=== PATIENT | male | born 1940 | race Caucasian/White ===

== ENCOUNTER 2023-12-05 19:02 | Emergency (ER) | payer MEDICARE, SELFPAY ==
[2023-12-05] VITALS (16 sets, daily range): BP systolic 105–189; BP diastolic 57–136; PULSE 72–92; TEMP 36.8; O2SAT 96–97; BMI 29.8
--- NOTE | 2023-12-05 19:15 | ECG_ITS ---
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
--- NOTE | 2023-12-05 19:52 | CT_ITS ---
The [address] [address] Patient Name: LACY GORDILLO MRN: [id number] date: 1940 Sex: M Assigned Patient Location: ER Current Patient Location: ER Accession/Order Number: [id number] Exam Date: 12/05/2023 20:17 Report Date: 12/05/2023 20:44 At the request of: BONG FRANCISCO Procedure: CT head/brain wo con EXAM: CT head/brain wo con HISTORY: altered mental status COMPARISON: None. TECHNIQUE: Axial CT scans through the head were obtained without IV contrast administration. Dose reduction techniques were achieved by using: automated exposure control and/or adjustment of mA and /or kV according to patient size and/or use of iterative reconstruction technique. FINDINGS: There is no evidence of acute intracranial hemorrhage or abnormal extra-axial fluid collection. No mass effect or midline shift is seen. There is no evidence of large acute territorial infarction. There is no hydrocephalus. There are a few tiny low-attenuation areas in bilateral basal ganglia, suggestive of remote lacunar infarcts. Mild enlarged ventricles and sulci, consistent with age appropriate cerebral atrophy. Mild decreased attenuation of the supratentorial white matter, likely represents chronic microvascular ischemia. To the limit of CT, the posterior fossa appears unremarkable. There are atherosclerotic calcifications of anterior and posterior circulations. No definite acute fracture is identified. Soft tissues are unremarkable. The visualized orbits show no abnormality. The visualized paranasal sinuses show no air-fluid level. Mastoid air cells are clear. CT/CT head/brain wo con IMPRESSION: No CT evidence of acute intracranial abnormality. If there is sufficient clinical concern for acute brain parenchymal pathology, consider MRI for further evaluation. Mild chronic microvascular ischemia and involutional changes. Intracranial atherosclerosis. Electronically authenticated by: ESTRELLA UNLU Date: 12/05/2023 20:44
[2023-12-05 20:05] LABS: Bilirubin Urine NEGATIVE (NEGATIVE); Blood Urine NEGATIVE (NEGATIVE); Clarity Urine CLEAR (CLEAR); Color Urine LT. YELLOW (YELLOW); Glucose Urine UA NEGATIVE (NEGATIVE); Ketones Urine NEGATIVE (NEGATIVE); Leukocyte Esterase Urine NEGATIVE (NEGATIVE); Nitrite Urine NEGATIVE (NEGATIVE); Protein Urine NEGATIVE (NEG/TRACE); Urine Microscopic Indicated NO; Urobilinogen Urine 0.2 EU/dL (0.2-1.0)
[2023-12-05 20:05] LABS: Basophils Percent Auto 0.8 % (0.2-2.0); Eosinophils Absolute Auto 0.1 10^3/uL (0.0-0.7); Eosinophils Percent Auto 1.8 % (0.9-7.0); Hematocrit 38.2 % (42.0-54.0); Hemoglobin 11.6 g/dL (14.0-18.0); Immature Granulocytes Abs Auto 0.07 10^3/uL (0.00-0.03); Immature Granulocytes Pct Auto 1.4 % (0.0-0.5); Lymphocytes Absolute Auto 1.3 10^3/uL (1.2-3.8); Lymphocytes Percent Auto 26.1 % (20.5-60.0); Mean Corpuscular HGB Conc 30.4 g/dL (29.9-35.2); Mean Corpuscular Hemoglobin 25.4 pg (25.9-34.0); Mean Corpuscular Volume 83.6 fL (80.0-94.0); Mean Platelet Volume 10.1 fL (9.5-13.5); Monocytes Absolute Auto 0.8 10^3/uL (0.3-0.8); Monocytes Percent Auto 15.1 % (1.7-12.0); Neutrophils Absolute Auto 2.7 10^3/uL (1.4-6.5); Neutrophils Percent Auto 54.8 % (43.0-75.0); Platelet Count 172 10^3/uL (150-450); Red Blood Count 4.57 10^6/uL (4.70-6.10); Red Cell Distribution Width 15.2 % (11.0-15.0)
[2023-12-05 20:16] LABS: Amphetamine Screen Urine NEGATIVE (NEGATIVE); Barbiturates Screen Urine NEGATIVE (NEGATIVE); Benzodiazepines Screen Urine NEGATIVE (NEGATIVE); Buprenorphine Screen Urine NEGATIVE (NEGATIVE); Cannabinoid Screen Urine NEGATIVE (NEGATIVE); Cocaine Screen Urine NEGATIVE (NEGATIVE); Methadone Screen Urine NEGATIVE (NEGATIVE); Methamphetamines Screen Urine NEGATIVE (NEGATIVE); Opiate Screen Urine NEGATIVE (NEGATIVE); Oxycodone Screen Urine NEGATIVE (NEGATIVE); Phencyclidine Screen Urine NEGATIVE (NEGATIVE); Tricyclic Antidepressant Urine NEGATIVE (NEGATIVE)
[2023-12-05 20:18] LABS: Prothrombin Time 39.1 sec (9.0-11.6)
[2023-12-05 20:21] LABS: Alanine Aminotransferase 16 U/L (16-63); Albumin Globulin Ratio 1.1; Albumin Level 3.6 g/dL (3.4-5.0); Alkaline Phosphatase 94 U/L (46-116); Anion Gap 10.9; Aspartate Amino Transferase 14 U/L (15-37); BUN Creatinine Ratio 13.2; Bilirubin Total 0.5 mg/dL (0.2-1.0); Calcium 8.9 mg/dL (8.5-10.1); Chloride 105 mmol/L (98-107); Estimated GFR (African America >60 (>=60); Estimated GFR (Non-African Ame >60 (>=60); Globulin 3.3 g/dL; Glucose 110 mg/dL (74-106); Potassium 3.9 mmol/L (3.5-5.1); Sodium 140 mmol/L (136-145); Total Protein 6.9 g/dL (6.4-8.2)
[2023-12-05 20:23] LABS: INR 4.26
[2023-12-05 20:29] LABS: Ethanol <3 mg/dL; Thyroid Stimulating Hormone 0.845 uIU/mL (0.358-3.740)
[2023-12-05 20:34] LABS: Ammonia 21 umol/L (11-32)
== END 2023-12-05 21:35 | disposition home or self-care (01) ==
PROVIDERS: Emergency Provider Internal Medicine; PCP Family Medicine
DX: R41.0 Disorientation, unspecified (principal); R79.1 Abnormal coagulation profile; I48.91 Unspecified atrial fibrillation; Z79.01 Long term (current) use of anticoagulants
CPT/HCPCS: 36415; 70450; 80053; 80307; 80320; 81003; 82140; 84443; 85025; 85610; 93005; 99285

== ENCOUNTER 2024-06-28 17:00 | Outpatient (REF) | payer MEDICARE, SELFPAY ==
[2024-06-29 10:35] LABS: Bilirubin Urine NEGATIVE (NEGATIVE); Blood Urine NEGATIVE (NEGATIVE); Clarity Urine CLOUDY (CLEAR); Color Urine YELLOW (YELLOW); Glucose Urine UA NEGATIVE (NEGATIVE); Ketones Urine NEGATIVE (NEGATIVE); Leukocyte Esterase Urine NEGATIVE (NEGATIVE); Nitrite Urine NEGATIVE (NEGATIVE); Protein Urine NEGATIVE (NEG/TRACE); Specific Gravity Urine 1.025 (1.005-1.025); Urobilinogen Urine 0.2 EU/dL (0.2-1.0)
[2024-06-29 10:45] LABS: Bacteria Urine NONE SEEN #/HPF (NONE SEEN); RBC Urine 0-2 #/HPF (0-2); WBC Urine NONE SEEN #/HPF (NONE SEEN)
[2024-06-29 10:46] LABS: Amorphous Sediment Urine MANY; Calcium Oxalate Crystals Urine RARE; Cast Seen? NONE SEEN #/LPF (NONE SEEN); Crystals Seen? Seen #/HPF (None Seen); Mucus Urine NONE SEEN (NONE SEEN); Squamous Epithelial Cell Urine RARE #/LPF (NONE/RARE); Urine Culture Indicated NO
== END 2024-06-28 17:01 | disposition home or self-care (01) ==
LOC: LAB 17:00
PROVIDERS: PCP Family Medicine; Visit Provider Physician Assistant
DX: R41.0 Disorientation, unspecified (principal)
CPT/HCPCS: 81001

== ENCOUNTER 2024-11-14 07:22 | Observation (INO) | payer MEDICARE, SELFPAY ==
--- OUTSIDE RECORDS SUMMARY | 2024-01-18 16:03 | XMS_ITS ---
Author Organization [facility] in [place] Address [address] [place] [address] Care Team Providers Care Payment Analyst Name Role Phone None, Unknown or Primary Care Provider Unavailab Tyosn Leon Unavailable [phone] Encounters Encounter Location Date Provider Diagnosis [facility] [address] [place] [address] 01/18/2024 Tyson Crenshaw Plan Of Treatment No Information Progress Notes * DUY Emigdio FDOB:[birth year] (83 yo M)Acc No.[id number]:01/18/2024 Patient: Emigdio TAYLOR :1940 A ge:83 Y S ex:Male Address:[address] [place], [address] * true * Date: Generated for Edgar sigala/Yisel/eTransmitting on: 0 11/14/2024 07:30 AM EDT
--- OUTSIDE RECORDS SUMMARY | 2024-11-10 21:02 | XMS_ITS | Continuity of Care Document ---
Author Organization [facility] Address [address] [place] [address] Phone Care Team Providers Care Development Spec Name Role Phone Josue Joseph DO Emergency Provider [phone] Tyson Bhatti II Primary Care Provider Isabelle Rucker Attending Provider Care Teams Patient Care Team Team Status: Active Member Role Status Dates Tyson Bhatti II MD Primary Care Provider Active Visit Care Team Team Status: Inactive Member Role Status Dates Josue Joseph DO Emergency Provider Active Start: November 02, 2024 End: November 02, 2024 Tyson Bhatti II MD Primary Care Provider Active Start: November 02, 2024 End: November 02, 2024 Visit Care Team Team Status: Inactive Member Role Status Dates Tyson Bhatti II MD Primary Care Provider Active Start: November 10, 2024 End: November 10, 2024 AMPARO De La Cruz Attending Provider Active St art: November 10, 2024 End: November 10, 2024 Chief Complaint and Reason for Visit Chief Complaint Admit Date fall November 02, 2024 6:08p m Allergies, Adverse Reactions, Alerts No known allergies Social History Smoking Status Status Start Date End Date Date of Observa tion Ex-smoker (finding) October 6:23pm Observation Status Observation Response Date of Response Patient Sex Male November 11, 2024 1 2:09am Assigned Sex Male [birth year] 943 Family History Relationship Condition Age at Onset Recorded Date/T gustavo brother Unknown father Unknown mother Unknown Problems Active Problems Medical Problem Onset Date Status Hypertensive urgency Active Acute encephalopathy Active B12 deficiency Active Diverticulosis Active Anemia Active Anemia Active Atrial fibrillation Active Primary osteoarthritis of left ankle Active Antral erosion Active Old cerebrovascular accident (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 Active Low mean corpuscular volume (MCV) Active Iron deficiency anemia Active BMI 31.0-31.9,adult Active Bilateral impacted cerumen Activ e Jose Manuel ulcer Active Bronchitis Active Inactive/Resolved Problems Medical Problem Onset Date Status Contusion of knee Resolved Closed head injury Resolved Hallucinations Resolved Fall Resolved Medications Medication Status Dose Units Route Directions Qty Days St art Date Stop Date End Date Instructions Warfarin () 2 mg tablet Discont inued 6 MG PO 6 TIMES PER WEEK December 17, 2023 12:00a m Yesica banner 2023 9:55a m thursday,, ,thursday, thursday and thursday Losartan 50 mg Tablet Active 50 MG PO Daily December 22, 2023 12:00a m Aspirin 81 mg Tablet,Delay ed Release (Dr/Ec) Active 81 MG PO Daily December 22, 2023 12:00a m Omeprazole 20 mg capsule,tricia yed release(DR/E C) Active 20 MG PO Daily December 22, 2023 12:00a m Cyanocobalam in (Vitamin B-12) 500 mcg tablet Discont inued 500 MCG PO Daily December 22, 2023 12:00a m Yesica banner 2023 9:55a m Warfarin 7.5 mg tablet Discont inued 7.5 MG PO As Directed [facility] er 2017 1:00am 2018 3:04p m Warfarin 5 mg tablet Discont inued 5 MG PO every Thursday, , Thursday, and Thursday [facility] er 2017 1:00am 2018 3:04p m Timolol Maleate 0.5 % drops Discont inued 1 DROPS OPHTHA LMIC Daily [facility] er 2017 1:00am December 17, 2023 3:28p m Omeprazole 20 mg Capsule,Tricia yed Release(Dr/E c) Discont inued 40 MG PO Daily 2018 1:00am December 17, 2023 3:28p m Ferrous Sulfate 324 mg (65 mg iron) Tablet,Delay ed Release (Dr/Ec) Discont inued 324 MG PO Twice daily 60 2018 1:00am December 17, 2023 3:28p m Ascorbic Acid (Vitamin C) 500 mg capsule Discont inued CAP PO As Directed 2023 1:00am December 17, 2023 3:27p m FreeTextSig: as directed Orally; Note: Source Status: Taking; Provider: Yenifer Florentino ( ) Warfarin 2 mg tablet Discont inued 4 MG PO every week 2023 1:00am 2023 9:55a m mondays Atorvastatin 20 mg tablet Discont inued 1 TAB PO Daily 2023 1:00am December 17, 2023 3:27p m FreeTextSi tablet Orally Once a day; Note: Source Status: Taking; Provider: Yenifer Florentino ( ) Niacinamide 500 mg tablet Discont inued 1 TAB PO Daily 2023 1:00am December 17, 2023 3:28p m FreeTextSi tablet Orally Once a day; Note: Source Status: Taking; Provider: Yenifer Florentino ( ) Doxycycline Hyclate 100 mg capsule Discont inued 100 MG PO Twice daily 20 10 2023 1:00am December 17, 2023 3:27p m Methylpredni solone (Medrol (Aiden)) 4 mg tablets,dose pack Discont inued 0 PO per package directions 2023 1:00am December 17, 2023 3:28p m PO PER PKG DIR for 6 days Albuterol Sulfate 90 mcg/actuatio n HFA aerosol inhaler Discont inued 2 PUFF INHALA TION Four times daily as needed for shortness of breath or wheezing 8.5 2023 1:00am December 17, 2023 3:27p m Atorvastatin 20 mg tablet Active 20 MG PO Daily 2023 12:00a m Cyanocobalam in (Vitamin B-12) 1,000 mcg capsule Active 1000 MCG PO Daily 2023 12:00a m Warfarin 2 mg tablet Active 2 MG PO As Directed 2023 12:00a m Directed by [facility]. 02/09/ - 4mg on Mondays & 6mg on ,,,, r,Sa Immunizations Immunization Event Date Not Given Reason Dose Number Maintenance Mechanic Lot Number Vaccine Information Statement (VIS) Detail Tetanus, Diphtheria, Pertussis (Tdap) November 02, 2024 [id number] Procedures Procedure Date Performed Status CT head/brain wo con November 02, 2024 6:20pm compl eted CT cervical spine wo con November 02, 2024 6:20pm c ompleted XR chest 2V* November 02, 2024 6:20pm completed XR knee LT 4V* November 02, 2024 6:20pm completed XR knee LT 4V* November 10, 2024 5:09pm completed Relevant Diagnostic Tests and/or Laboratory Data Laboratory Results Test Date/Time Result Interpretation Reference Range Result Comment Performing Site Corrected White Blood Count November 02, 2024 6:20pm 4.7 10*3/uL 4.1-10.5 [facility] [id number] [address] [facility] [address] Uncorrected WBC Count November 02, 2024 6:20pm 4.7 10*3/uL 4.1-10.5 [facility] [id number] [address] [facility] [address] Red Blood Count November 02, 2024 6:20pm 4.75 10*6/uL 3.90-5.60 [facility] [id number] [address] [facility] [address] Hemoglobin November 02, 2024 6:20pm 12.7 g/dL Below low normal 13.0-17.0 [facility] [id number] [address] [facility] [address] Hematocrit November 02, 2024 6:20pm 39.4 % 38.8-50.0 [facility] [id number] [address] [facility] [address] Mean Corpuscular Volume November 02, 2024 6:20pm 83.0 fL Below low normal 83.5-101 [facility] [id number] [address] [place] [place] [id number] Mean Corpuscular Hemoglobin November 02, 2024 6:20pm 26.7 pg Below low normal 27.5-35.2 [facility] [id number] [address] [facility] [address] Mean Corpuscular Hemoglobin Concent November 02, 2024 6:20pm 32.2 g/dL Below low normal 32.5-35.6 [facility] [id number] [address] [facility] [address] Red Cell Distribution Width November 02, 2024 6:20pm 18.1 % Above high normal 12.0-14.8 [facility] [id number] [address] [facility] [address] Platelet Count November 02, 2024 6:20pm 132 10*3/uL Below low normal 150-450 [facility] [id number] [address] [facility] [address] Mean Platelet Volume November 02, 2024 6:20pm 8.7 fL 6.6-10.1 [facility] [id number] [address] [facility] [address] Monocyte Distribution Width November 02, 2024 6:20pm 19.52 % 0.00-20.00 [facility] [id number] [address] [facility] [address] Neutrophils (%) (Auto) November 02, 2024 6:20pm 50.7 % . [facility] [id number] [address] [facility] [address] Lymphocytes (%) (Auto) November 02, 2024 6:20pm 29.2 % . [facility] [id number] [address] [facility] [address] Monocytes (%) (Auto) November 02, 2024 6:20pm 15.5 % . [facility] [id number] [address] [facility] [address] Eosinophils (%) (Auto) November 02, 2024 6:20pm 3.9 % . [facility] [id number] [address] [facility] [address] Basophils (%) (Auto) November 02, 2024 6:20pm 0.7 % . [facility] [id number] [address] [facility] [address] Nucleated RBC Relative Count (auto) November 02, 2024 6:20pm 0.1 /100{WB C} 0-0.5 [facility] [id number] [address] [facility] [address] Neutrophils # (Auto) November 02, 2024 6:20pm 2.4 10*3/uL 1.8-7.7 [facility] [id number] [address] [facility] [address] Lymphocytes # (Auto) November 02, 2024 6:20pm 1.4 10*3/uL 1.00-4.8 [facility] [id number] [address] [place] [address] Monocytes # (Auto) November 02, 2024 6:20pm 0.7 10*3/uL 0.0-0.8 [facility] [id number] [address] [place] [address] Eosinophils # (Auto) November 02, 2024 6:20pm 0.2 10*3/uL 0.0-0.45 [facility] [id number] [address] [place] [address] Basophils # (Auto) November 02, 2024 6:20pm 0.0 10*3/uL 0.0-0.2 [facility] [id number] [address] [place], [place] [address] Glucose Level November 02, 2024 6:20pm 133 mg/dL Above high normal 70-100 ADA recommended reference rangeRandom Glucose Reference Range is dependent on time and content of last meal. Glucose of more than 200 mg/dL in a nonstressed, ambulatory subject supports the diagnosis of Diabetes Mellitus. [facility] [id number] [address] [place] [address] Blood Urea Nitrogen November 02, 2024 6:20pm 15 mg/dL 7-25 [facility] [id number] [address] [place] [address] Creatinine November 02, 2024 6:20pm 1.08 mg/dL 0.70-1.30 [facility] [id number] [address] [place], [place] [address] Estimated GFR (CKD-EPI) November 02, 2024 6:20pm > 60.0 mL/Min [facility] [id number] [address] [place] [address] Sodium Level November 02, 2024 6:20pm 138 mmol/L 136-145 [facility] [id number] [address] [facility] [address] Potassium Level November 02, 2024 6:20pm 4.0 mmol/L 3.5-5.1 [facility] [id number] [address] [facility] [address] Chloride Level November 02, 2024 6:20pm 104 mmol/L 98-107 [facility] [id number] [address] [place] [address] Carbon Dioxide Level November 02, 2024 6:20pm 29.6 mmol/L 21.0-31.0 [facility] [id number] [address] [place] [address] Anion Gap November 02, 2024 6:20pm 8.4 mEq/L 6.0-15.0 [facility] [id number] [address] [place] [address] Calcium Level November 02, 2024 6:20pm 8.3 mg/dL Below low normal 8.6-10.3 [facility] [id number] [address] [facility] [address] Total Protein November 02, 2024 6:20pm 5.8 g/dL Below low normal 6.4-8.9 [facility] [id number] [address] [facility] [address] Albumin November 02, 2024 6:20pm 3.4 g/dL Below low normal 3.5-5.7 [facility] [id number] [address] [facility] [address] Globulin November 02, 2024 6:20pm 2.4 g/dL [facility] [id number] [address] [place] [address] Albumin/Globulin Ratio November 02, 2024 6:20pm 1.4 [facility] [id number] [address] [place] [address] Total Bilirubin November 02, 2024 6:20pm 0.5 mg/dL 0.3-1.0 [facility] [id number] [address] [place] [address] Aspartate Amino Transf (AST/SGOT) November 02, 2024 6:20pm 21 U/L 13-39 [facility] [id number] [address] [place], [place] [address] Alanine Aminotransferase (ALT/SGPT) November 02, 2024 6:20pm 22 U/L 7-52 [facility] [id number] [address] [place], [place] [address] Alkaline Phosphatase November 02, 2024 6:20pm 85 U/L 34-104 [facility] [id number] [address] [place], [place] [address] Troponin I High Sensitivity November 02, 2024 6:20pm 18 ng/L 0-20 The Troponin units of report have been changed to meet the Chest Pain Accreditation requirement, element EC5.M1l2. Troponin units are changed from pg/ml to ng/L. Also, the decimal is removed and results are in whole numbers. [facility] [id number] [address] [place], [place] [address] Pharmacy Creatinine Clearance (Chem November 02, 2024 6:20pm 65.85 [facility] [id number] [address] [place], [place] [address] Diagnostic Imaging Reports Author Vitor Church [facility] Report Date/Time November 10, 2024 6:04p m [facility] Main [place] [id number] XRay Report Signed Patient: Emigdio Jeong III MR#: [id number] : 1940 Acct:[id number] Age/Sex: 84 / M ADM Date: 5 Loc: XNELY Room: Type: [facility] Attending Dr: Isabelle Rucker MANAGER CAR-C Copies to: KAREN De La Cruz~ Ordering Provider: KAREN De La Cruz Date of Service: 11/10/24 XR/XR knee LT 4V*: Fall 4 views left knee plain film COMPARISON: 11/02/2024 HISTORY: Fell injuring left knee ACUTE FINDINGS: No acute findings DEGENERATIVE CHANGE: Similar mild degeneration SOFT TISSUE FINDINGS: Unremarkable JOINT EFFUSION: None POSTOP CHANGES: Stable visualized fixation hardware the tibia vascular clips BONE MINERALIZATION: Adequate XR/XR knee LT 4V* IMPRESSION: No acute findings stable postsurgical changes. Mild degeneration Impression dictated by: Vitor Church M.D. 11/10/2024 6:04 PM Dictation Location: RADIO-PC-20 Transcribed By: PWS 11/10/241803 Dictated By: Vitor Church DO 11/10/241802 Signed By: <Electronically signed by Vitor Church DO in OV> 11/10/241803 Vital Signs Vital Reading Result Reference Range Collection Date/Time Height 72 [in_i] November 02, 2024 6:21pm Weight 104.32 kg November 02, 2024 6:21pm Body Temperature 97.7 [degF] 97.6-99.0 November 02, 2 025 8:38pm Heart Rate 71 /min 60-100 November 02, 2024 8:38pm Respiratory rate 16 /min 12-24 November 02, 2 025 8:38pm Oxygen saturation by Pulse oximetry 98 % 95-10 0 November 02, 2024 8:38pm BP Systolic 177 mm[Hg] 100-140 November 02, 2024 8:38pm BP Diastolic 83 mm[Hg] 60-100 November 02, 2024 8:38pm Advance Directives Advance Directive Response Recorded Date/ Time Advance Directives No May 2:13pm Insurance Providers Guarantor Emigdio Jeong III Address [address] [facility] [address] Contact Info. Home Phone: Payer Policy Id Coverage Id Subscriber's Name Subscriber Id Effective Date Expiration Date Ihsan HERRERA/GI [id number] Emigdio Jeong III [id number] Medicare [id number] 00 [id number] Emigdio Jeong III [id number] Encounters Encounter Location(s) Arrival/Admit Date Discharge/Depart Date Provider(s) Departed Emergency [facility]Emergency Room November 02, 2024 6:08pm November 02, 2024 8:43pm [facility] Departed [facility] November 10, 2024 5:08pm November 10, 2024 5:09pm KAREN De La Cruz Plan of Treatment Future Tests Future scheduled test information is unavailable Pending Tests Pending diagnostic test information is unavailable Future Visits Future appointment information is unavailable Referrals to Other Providers Reason for Referral Referral Start Date Provider Provider Contact Information Provider Address Emigdio Roland , DO Work Phone: [address] [facility] [address] Future Procedures Future procedure information is unavailable Future Medications Future medication information is unavailable Patient Instructions Instruction Admit Date Head injury in adults Preventing falls - ED discharge instructions November 02, 2024 6:08pm
[2024-11-14] VITALS (17 sets, daily range): BP systolic 114–182; BP diastolic 75–117; PULSE 70–89; TEMP 36.4–36.7; O2SAT 92–98; BMI 27.1; BMI 29.3
--- OUTSIDE RECORDS SUMMARY | 2024-11-14 07:29 | XMS_ITS | Encounter Summary ---
Author Organization [facility] Address [address] [place] [address] Care Team Providers Care Ob Nurse Name Role Phone Tyson Bhatti MD Primary Care Provider [phone] SukhwinderKishanfannysandrita DO Unavailable [phone] Encounter Details Date Type Department Care Team ([facility] Contact Info) Description 05/27/2024 Abstract [facility] [address] [address] [place] [id number] Tyson Bhatti MD [address] [facility] [address] [place] [address] Social History Tobacco Use Types Packs/Day Years Used Date Smoking Tobacco: Former Cigarettes Smokeless Tobacco: Never Sex and Gender Information Value Date Recorded Sex Assigned at Not on file Legal Sex Male 8:34 PM EDT Gender Identity Not on file Sexual Orientation Not on file documented as of this encounter Plan of Treatment Upcoming Encounters Date Type Department Care Team ([facility] Contact Info) Description 11/28/2024 3:30 PM EDT Office Visit [facility] [address] [facility] [address] [place] [address] Tyson Bhatti MD [address] [facility] [address] [place] [address] documented as of this encounter Visit Diagnoses Not on filedocumented in this encounter Care Teams Ob Nurse Relationship Specialty Start Date End Date Tyson Bhatti MD [address] [facility] [address] [place] [address] PCP - General Internal Medicine 06/03/24 Mike Pretty DO [address] [place] [address] Referring Physician Neurology 10/03/24 documented as of this encounter
--- OUTSIDE RECORDS SUMMARY | 2024-11-14 07:29 | XMS_ITS | Patient Health Record ---
Author Organization [facility] [place] Address [address] [place] [address] Care Team Providers Care Food Chemist Name Role Phone None, Unknown or Primary Care Provider Unavailab kristofer Tyson Crenshaw Unavailable [phone] Reason For Referral No Information Problems Problem Type SNOMED Code ICD Code Onset Dates Problem Status W/U Status Risk Notes Problem 62688518 Essential (prima ry) hypertension (I10) Active confirmed Problem 740844947 Insomnia, unspecified (G47.00) Active confirmed Problem 95750917 Metabolic encephalopathy (G93.41) Active confirmed Problem 614707989 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 confirmed Problem 696978289 moth exterminator (curre nt) use of anticoagulants (Z79.01) Active confirmed Problem 087880391 Vascular dementi a, unspecified severity, without behavioral disturbance, psychotic disturbance, mood disturbance, and anxiety (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
--- OUTSIDE RECORDS SUMMARY | 2024-11-14 07:29 | XMS_ITS | Encounter Summary ---
Author Organization [facility] Address [address] [place] [address] Care Team Providers Care Soap Press Feeder Name Role Phone Tyson Bhatti MD Primary Care Provider [phone] SukhwinderKishanfannysandrita DO Unavailable [phone] Encounter Details Date Type Department Care Team ([facility] Contact Info) Description 11/12/2024 Results Follow-Up [facility] [address] [facility] [address] [place] [phone] Isabelle Rucker, [employer] [address] [facility] [address] [place] [address] Social History Tobacco Use Types Packs/Day Years Used Date Smoking Tobacco: Former Cigarettes Smokeless Tobacco: Never Alcohol Use Standard Drinks/Week Comments Defer 0 (1 standard drink = 0.6 oz pur e alcohol) PHQ-2 Answer Date Recorded Patient Health Questionnaire-2 Score 0 10/10/2024 Sex and Gender Information Value Date Recorded Sex Assigned at Not on file Legal Sex Male 8:34 PM EDT Gender Identity Not on file Sexual Orientation Not on file documented as of this encounter Plan of Treatment Upcoming Encounters Date Type Department Care Team ([facility] Contact Info) Description 11/28/2024 3:30 PM EDT Office Visit [facility] [address] [facility] [address] [place] [address] Tyson Bhatti MD [address] [facility] [address] [place] [address] documented as of this encounter Visit Diagnoses Not on filedocumented in this encounter Care Teams Soap Press Feeder Relationship Specialty Start Date End Date Tyson Bhatti MD [address] [address] PCP - General Internal Medicine 06/03/24 Mike Pretty DO [address] [place] [address] Referring Physician Neurology 10/03/24 documented as of this encounter
--- OUTSIDE RECORDS SUMMARY | 2024-11-14 07:30 | XMS_ITS | Encounter Summary ---
Author Organization [facility] Address [address] [place] [address] Phone Care Team Providers Care Chain Mortiser Operator Name Role Phone Emigdio Roland DO Primary Care Provider [phone] Generic Provider, No Assigned Pcp MD Primary Car e Provider Unavailable Encounter Details Date Type Department Care Team (Late st Contact Info) Description 12/16/2022 Orders Only [facility] [address] [place] [address] Conversion, Onbase Social History Tobacco Use Types Packs/Day Years Used Date Smoking Tobacco: Never Assessed Sex and Gender Information Value Date Recorded Sex Assigned at Not on file Legal Sex Male 9:52 PM EST Gender Identity Not on file Sexual Orientation Not on file documented as of this encounter Plan of Treatment Scheduled Orders Name Type Priority Associated Diagnoses Orde r Schedule OUTSIDE LAB SCAN Lab Ordered: 12/16/2022 documented as of this encounter Visit Diagnoses Not on filedocumented in this encounter Care Teams Chain Mortiser Operator Relationship Specialty Start Date End Date Emigdio Roland DO PCP - General 11/24/18 07/08/23 Generic Provider, No Assigned Pcp, PCP - General 07/09/23 documented as of this encounter
--- OUTSIDE RECORDS SUMMARY | 2024-11-14 07:30 | XMS_ITS | Encounter Summary ---
Author Organization [facility] Address [address] [place] [address] Phone Care Team Providers Care Digital Marketing Assistant Name Role Phone Emigdio Roland DO Primary Care Provider [phone] Generic Provider, No Assigned Pcp MD Primary Car e Provider Unavailable Encounter Details Date Type Department Care Team (Late st Contact Info) Description 08/25/2019 Orders Only [facility] [address] [place] [address] Conversion, Onbase Social History Tobacco Use Types [...] r Schedule OUTSIDE LAB SCAN Lab Ordered: 08/25/2019 documented as of this encounter Visit Diagnoses Not on filedocumented in this encounter Care Teams Digital Marketing Assistant Relationship Specialty Start Date End Date Emigdio Roland DO PCP - General 11/24/18 07/08/23 Generic Provider, No Assigned Pcp, PCP - General 07/09/23 documented as of this encounter
--- OUTSIDE RECORDS SUMMARY | 2024-11-14 07:30 | XMS_ITS | Encounter Summary ---
Author Organization [facility] Address [address] [place] [address] Phone Care Team Providers Care Stock Mover Name Role Phone Emigdio Roland DO Primary Care Provider [phone] Generic Provider, No Assigned Pcp MD Primary Car e Provider Unavailable Encounter Details Date Type Department Care Team (Late st Contact Info) Description 10/02/2022 Orders Only [facility] [address] [place] [address] Conversion, Onbase Social History Tobacco Use Types [...] r Schedule OUTSIDE LAB SCAN Lab Ordered: 10/02/2022 documented as of this encounter Visit Diagnoses Not on filedocumented in this encounter Care Teams Stock Mover Relationship Specialty Start Date End Date Emigdio Roland DO PCP - General 11/24/18 07/08/23 Generic Provider, No Assigned Pcp, PCP - General 07/09/23 documented as of this encounter
--- OUTSIDE RECORDS SUMMARY | 2024-11-14 07:30 | XMS_ITS | Encounter Summary ---
Author Organization [facility] Address [address] [place] [address] Phone Care Team Providers Care Marketing Graphics Specialist Name Role Phone Emigdio Roland DO Primary Care Provider [phone] Generic Provider, No Assigned Pcp MD Primary Car e Provider Unavailable Encounter Details Date Type Department Care Team (Late st Contact Info) Description 04/21/2022 Orders Only [facility] [address] [place] [address] Conversion, Onbase Social History Tobacco Use Types [...] r Schedule OUTSIDE LAB SCAN Lab Ordered: 04/21/2022 documented as of this encounter Visit Diagnoses Not on filedocumented in this encounter Care Teams Marketing Graphics Specialist Relationship Specialty Start Date End Date Emigdio Roland DO PCP - General 11/24/18 07/08/23 Generic Provider, No Assigned Pcp, PCP - General 07/09/23 documented as of this encounter
--- OUTSIDE RECORDS SUMMARY | 2024-11-14 07:30 | XMS_ITS | Encounter Summary ---
Author Organization [facility] Address [address] [place] [address] Phone Care Team Providers Care Evp Chief Exploration Officer Name Role Phone Emigdio Roland DO Primary Care Provider [phone] Generic Provider, No Assigned Pcp MD Primary Car e Provider Unavailable Encounter Details Date Type Department Care Team (Late st Contact Info) Description 08/18/2022 Orders Only [facility] [address] [place] [address] Conversion, Onbase Social History Tobacco Use Types [...] r Schedule OUTSIDE LAB SCAN Lab Ordered: 08/18/2022 documented as of this encounter Visit Diagnoses Not on filedocumented in this encounter Care Teams Evp Chief Exploration Officer Relationship Specialty Start Date End Date Emigdio Roland DO PCP - General 11/24/18 07/08/23 Generic Provider, No Assigned Pcp, PCP - General 07/09/23 documented as of this encounter
--- OUTSIDE RECORDS SUMMARY | 2024-11-14 07:30 | XMS_ITS | Encounter Summary ---
Author Organization [facility] Address [address] [place] [address] Phone Care Team Providers Care Synthetic Resin Operator Name Role Phone Emigdio Roland DO Primary Care Provider [phone] Generic Provider, No Assigned Pcp MD Primary Car e Provider Unavailable Encounter Details Date Type Department Care Team (Late st Contact Info) Description 07/31/2020 Orders Only [facility] [address] [place] [address] Conversion, Onbase Social History Tobacco Use Types [...] r Schedule OUTSIDE LAB SCAN Lab Ordered: 07/31/2020 documented as of this encounter Visit Diagnoses Not on filedocumented in this encounter Care Teams Synthetic Resin Operator Relationship Specialty Start Date End Date Emigdio Roland DO PCP - General 11/24/18 07/08/23 Generic Provider, No Assigned Pcp, PCP - General 07/09/23 documented as of this encounter
--- OUTSIDE RECORDS SUMMARY | 2024-11-14 07:30 | XMS_ITS | Encounter Summary ---
Author Organization [facility] Address [address] [place] [address] Phone Care Team Providers Care Oxygen Plant Operator Name Role Phone Emigdio Roland DO Primary Care Provider [phone] Generic Provider, No Assigned Pcp MD Primary Car e Provider Unavailable Encounter Details Date Type Department Care Team (Late st Contact Info) Description 03/12/2020 Orders Only [facility] [address] [place] [address] Conversion, Onbase Social History Tobacco Use Types [...] r Schedule OUTSIDE LAB SCAN Lab Ordered: 03/12/2020 documented as of this encounter Visit Diagnoses Not on filedocumented in this encounter Care Teams Oxygen Plant Operator Relationship Specialty Start Date End Date Emigdio Roland DO PCP - General 11/24/18 07/08/23 Generic Provider, No Assigned Pcp, PCP - General 07/09/23 documented as of this encounter
--- OUTSIDE RECORDS SUMMARY | 2024-11-14 07:30 | XMS_ITS | Encounter Summary ---
Author Organization [facility] Address [address] [place] [address] Care Team Providers Care International Editorial Producer Name Role Phone Tyson Bhatti MD Primary Care Provider [phone] Kishan Prettyfannysandrita DO Unavailable [phone] Encounter Details Date Type Department Care Team (Late Contact Info) Description 04/19/2024 Abstract [facility] 110 [place] [phone] Emigdio Roland MD [address] [place] [address] Social History Tobacco Use Types Packs/Day Years Used Date Smoking Tobacco: Former Cigarettes Smokeless Tobacco: Never Sex and Gender Information Value Date Recorded Sex Assigned at Not on file Legal Sex Male 8:34 PM EDT Gender Identity Not on file Sexual Orientation Not on file documented as of this encounter Plan of Treatment Upcoming Encounters Date Type Department Care Team ([facility] Contact Info) Description 11/28/2024 3:30 PM EDT Office Visit [facility] 110 [place] [address] Tyson Bhatti MD [address] [facility] 110 [place], [place] [id number] documented as of this encounter Visit Diagnoses Not on filedocumented in this encounter Care Teams International Editorial Producer Relationship Specialty Start Date End Date Tyson Bhatti MD [address] [facility] 110 [place] [address] PCP - General Internal Medicine 06/03/24 Mike Pretty DO 112 [place] [address] Referring Physician Neurology 10/03/24 documented as of this encounter
--- OUTSIDE RECORDS SUMMARY | 2024-11-14 07:30 | XMS_ITS | Encounter Summary ---
Author Organization [facility] Address [address] [place] [address] Phone Care Team Providers Care Continuous Churn Buttermaker Name Role Phone Emigdio Roland DO Primary Care Provider [phone] Generic Provider, No Assigned Pcp MD Primary Car e Provider Unavailable Encounter Details Date Type Department Care Team (Late st Contact Info) Description 03/03/2019 Orders Only [facility] [address] [place] [address] Conversion, Onbase Social History Tobacco Use Types [...] r Schedule OUTSIDE LAB SCAN Lab Ordered: 03/03/2019 documented as of this encounter Visit Diagnoses Not on filedocumented in this encounter Care Teams Continuous Churn Buttermaker Relationship Specialty Start Date End Date Emigdio Roland DO PCP - General 11/24/18 07/08/23 Generic Provider, No Assigned Pcp, PCP - General 07/09/23 documented as of this encounter
--- OUTSIDE RECORDS SUMMARY | 2024-11-14 07:30 | XMS_ITS | Encounter Summary ---
Author Organization [facility] Address [address] [place] [address] Phone Care Team Providers Care Ironworker Machine Operator Name Role Phone Emigdio Roland DO Primary Care Provider [phone] Generic Provider, No Assigned Pcp MD Primary Car e Provider Unavailable Encounter Details Date Type Department Care Team (Late st Contact Info) Description 05/17/2020 Orders Only [facility] [address] [place] [address] Conversion, Onbase Social History Tobacco Use Types [...] r Schedule OUTSIDE LAB SCAN Lab Ordered: 05/17/2020 documented as of this encounter Visit Diagnoses Not on filedocumented in this encounter Care Teams Ironworker Machine Operator Relationship Specialty Start Date End Date Emigdio Roland DO PCP - General 11/24/18 07/08/23 Generic Provider, No Assigned Pcp, PCP - General 07/09/23 documented as of this encounter
--- OUTSIDE RECORDS SUMMARY | 2024-11-14 07:30 | XMS_ITS | Encounter Summary ---
Author Organization [facility] Address [address] [facility] [place] [address] Care Team Providers Care Reach Truck Operator Name Role Phone Tyosn Bhatti MD Primary Care Provider [phone] Mike Pretty DO Unavailable [phone] Encounter Details Date Type Department Care Team ([facility] Contact Info) Description 02/18/2024 Abstract [facility] [address] [facility] 110 [place] [phone] Unallocated, Noms Provider, [address] [place] [address] Social History Tobacco Use Types Packs/Day Years Used Date Smoking Tobacco: Former Cigarettes Smokeless Tobacco: Never Sex and Gender Information Value Date Recorded Sex Assigned at Not on file Legal Sex Male 8:34 PM EDT Gender Identity Not on file Sexual Orientation Not on file documented as of this encounter Plan of Treatment Upcoming Encounters Date Type Department Care Team ([facility] Contact Info) Description 11/28/2024 3:30 PM EDT Office Visit [facility] [address] [facility] 110 [place] [address] Tyson Bhatti MD [address] [facility] 110 [place], [place] [address] documented as of this encounter Visit Diagnoses Not on filedocumented in this encounter Care Teams Reach Truck Operator Relationship Specialty Start Date End Date Tyson Bhatti MD [address] [facility] 110 [place] [address] PCP - General Internal Medicine 06/03/24 Mike Pretty DO [address] [place] [address] Referring Physician Neurology 10/03/24 documented as of this encounter
--- OUTSIDE RECORDS SUMMARY | 2024-11-14 07:30 | XMS_ITS | Encounter Summary ---
Author Organization [facility] Address [address] [place] [address] Phone Care Team Providers Care Supervisor Inspection Room Name Role Phone Emigdio Roland DO Primary Care Provider [phone] Generic Provider, No Assigned Pcp MD Primary Car e Provider Unavailable Encounter Details Date Type Department Care Team (Late st Contact Info) Description 06/05/2020 Orders Only [facility] [address] [place] [address] Conversion, Onbase Social History Tobacco Use Types [...] r Schedule OUTSIDE LAB SCAN Lab Ordered: 06/05/2020 documented as of this encounter Visit Diagnoses Not on filedocumented in this encounter Care Teams Supervisor Inspection Room Relationship Specialty Start Date End Date Emigdio Roland DO PCP - General 11/24/18 07/08/23 Generic Provider, No Assigned Pcp, PCP - General 07/09/23 documented as of this encounter
--- OUTSIDE RECORDS SUMMARY | 2024-11-14 07:30 | XMS_ITS | Encounter Summary ---
Author Organization [facility] Address [address] [place] [address] Phone Care Team Providers Care Distribution Field Technician Name Role Phone Emigdio Roland DO Primary Care Provider [phone] Generic Provider, No Assigned Pcp MD Primary Car e Provider Unavailable Encounter Details Date Type Department Care Team (Late st Contact Info) Description 10/24/2019 Orders Only [facility] [address] [place] [address] Conversion, Onbase Social History Tobacco Use Types [...] r Schedule OUTSIDE LAB SCAN Lab Ordered: 10/24/2019 documented as of this encounter Visit Diagnoses Not on filedocumented in this encounter Care Teams Distribution Field Technician Relationship Specialty Start Date End Date Emigdio Roland DO PCP - General 11/24/18 07/08/23 Generic Provider, No Assigned Pcp, PCP - General 07/09/23 documented as of this encounter
--- OUTSIDE RECORDS SUMMARY | 2024-11-14 07:30 | XMS_ITS | Encounter Summary ---
Author Organization [facility] Address [address] [place] [address] Phone Care Team Providers Care Brake Repairer Hydraulic Name Role Phone Emigdio Roland DO Primary Care Provider [phone] Generic Provider, No Assigned Pcp MD Primary Car e Provider Unavailable Encounter Details Date Type Department Care Team (Late st Contact Info) Description 05/26/2022 Orders Only [facility] [address] [place] [address] Conversion, Onbase Social History Tobacco Use Types [...] r Schedule OUTSIDE LAB SCAN Lab Ordered: 05/26/2022 documented as of this encounter Visit Diagnoses Not on filedocumented in this encounter Care Teams Brake Repairer Hydraulic Relationship Specialty Start Date End Date Emigdio Roland DO PCP - General 11/24/18 07/08/23 Generic Provider, No Assigned Pcp, PCP - General 07/09/23 documented as of this encounter
--- OUTSIDE RECORDS SUMMARY | 2024-11-14 07:30 | XMS_ITS | Encounter Summary ---
Author Organization [facility] Address [address] [facility] [place] [address] Care Team Providers Care Dressage Judge Name Role Phone Tyson Bhatti MD Primary Care Provider [phone] SukhwinderKishanfannysandrita DO Unavailable [phone] Encounter Details Date Type Department Care Team ([facility] Contact Info) Description 06/29/2024 Abstract [facility] 112 [facility] 110 [place] [address] Tyson Bhatti MD 112 [facility] 110 [place] [address] Social History Tobacco Use Types Packs/Day Years Used Date Smoking Tobacco: Former Cigarettes Smokeless Tobacco: Never Alcohol Use Standard Drinks/Week Comments Defer 0 (1 standard drink = 0.6 oz pur e alcohol) Sex and Gender Information Value Date Recorded Sex Assigned at Not on file Legal Sex Male 8:34 PM EDT Gender Identity Not on file Sexual Orientation Not on file documented as of this encounter Plan of Treatment Upcoming Encounters Date Type Department Care Team ([facility] Contact Info) Description 11/28/2024 3:30 PM EDT Office Visit [facility] 112 [facility] 110 [place] [address] Tyson Bhatti MD [address] [facility] 110 [place] [address] documented as of this encounter Visit Diagnoses Not on filedocumented in this encounter Care Teams Dressage Judge Relationship Specialty Start Date End Date Tyson Bhatti MD [address] [address] PCP - General Internal Medicine 06/03/24 Mike Pretty DO [address] [facility] 110 [place] [address] Referring Physician Neurology 10/03/24 documented as of this encounter
--- OUTSIDE RECORDS SUMMARY | 2024-11-14 07:30 | XMS_ITS | Encounter Summary ---
Author Organization [facility] Address [address] [place] [address] Care Team Providers Care Major Donor Coordinator Name Role Phone Tyson Bhatti MD Primary Care Provider [phone] Mike Pretty DO Unavailable [phone] Encounter Details Date Type Department Care Team ([facility] Contact Info) Description 02/18/2024 Abstract [facility] [address] [facility] 110 [place] [address] Unallocated, Noms Provider, [address] [place] [address] Social History Tobacco Use Types Packs/Day Years Used Date Smoking Tobacco: Former Cigarettes Smokeless Tobacco: Never Sex and Gender Information Value Date Recorded Sex Assigned at Not on file Legal Sex Male 8:34 PM EDT Gender Identity Not on file Sexual Orientation Not on file documented as of this encounter Plan of Treatment Upcoming Encounters Date Type Department Care Team ([facility] Contact Info) Description 11/28/2024 3:30 PM EDT Office Visit [facility] [address] [facility] 110 [place] [address] Tyson Bhatti MD [address] [facility] 110 [place], [place] [address] documented as of this encounter Visit Diagnoses Not on filedocumented in this encounter Care Teams Major Donor Coordinator Relationship Specialty Start Date End Date Tyson Bhatti MD [address] [facility] 110 [place] [address] PCP - General Internal Medicine 06/03/24 Mike Pretty DO [address] [place] [address] Referring Physician Neurology 10/03/24 documented as of this encounter
--- OUTSIDE RECORDS SUMMARY | 2024-11-14 07:30 | XMS_ITS | Clinical Summary ---
Author Organization [facility] Address [address] [place] [address] Phone Care Team Providers Care Oceanographer Physical Name Role Phone Generic Provider, No Assigned Pcp MD Primary Car e Provider Unavailable Allergies No known active allergies Medications warfarin (Coumadin) 2 mg tablet Take 3 tablets (6 mg) by mouth 3 times a week. ON Thursday AND THURSDAY. TAKE 2 TABLETS (4 MG) ORALLY ALL OTHER DAYS OR DIRECTED. PER [facility] 11/07/2020 Active atorvastatin (Lipitor) 20 mg tabletIndicatio ns:Coronary artery disease involving [place] coronary artery of [place] heart without angina pectoris Take 1 tablet (20 mg) by mouth once daily. 30 tablet 11 06/19/2023 Active Active Problems Problem Noted Date Diagnosed Date Murmur, heart 06/19/2023 CAD (coronary artery disease) 01/24/2023 History of coronary artery bypass graft 01/25/20 23 History of PTCA 01/24/2023 Permanent atrial fibrillation (Multi) 01/24/2023 Class 1 obesity with body ma ss index (BMI) of 31.0 to 31.9 in adult 01/24/2023 Former smoker 01/24/2023 High risk medication use 01/24/2023 Family History Medical History Relation Name Comments Hypertension Father heart problem Father heart problem Mother Breast cancer Sister Relation Name Status Comments Father Mother Sister Social History Tobacco Use Types Packs/Day Years Used Date Smoking Tobacco: Former Cigarettes Smokeless Tobacco: Never Alcohol Use Standard Drinks/Week Comments Never 0 (1 standard drink = 0.6 oz pur e alcohol) Sex and Gender Information Value Date Recorded Sex Assigned at Not on file Legal Sex Male 9:52 PM EST Gender Identity Not on file Sexual Orientation Not on file Last Filed Vital Signs Vital Sign Reading Time Taken Comments Blood Pressure 138/84 07/22/2023 10:45 AM EST Pulse 86 06/19/2023 1:20 PM EST Temperature - - Respiratory Rate - - Oxygen Saturation - - Inhaled Oxygen Concentration - - Weight 99.8 kg (220 lb) 07/22/2023 10:45 AM EST Height 182.9 cm (6') 07/22/2023 10:45 AM EST Body Mass Index 29.84 07/22/2023 10:45 AM EST Plan of Treatment Health Maintenance Due Date Last Done Comments Medicare Annual Wellness Vis it (AWV) 1940 Pneumococcal Vaccine (1 of 2 - PCV) 1961 DTaP/Tdap/Td Vaccines (1 - Tdap) 1964 Zoster Vaccines (1 of 2) 1992 RSV High Risk: (Elderly (60+ ) or Population) (1 - 1-dose 75+ series) 2017 COVID-19 Vaccine ( - 2023-2 5 season) 2024 Lipid Panel 05/24/2024 05/24/2019, 11/24/2018 Influenza Vaccine (Season Ended) 2025 HIB Vaccines Aged Out No longer eligi ble based on patient's age to complete this topic HPV Vaccines Aged Out No longer eligi ble based on patient's age to complete this topic Hepatitis A Vaccines Aged Out No long er eligible based on patient's age to complete this topic Hepatitis B Vaccines Aged Out No long er eligible based on patient's age to complete this topic IPV Vaccines Aged Out No longer eligi ble based on patient's age to complete this topic Meningococcal Vaccine Aged Out No michael vipul eligible based on patient's age to complete this topic Rotavirus Vaccines Aged Out No longer eligible based on patient's age to complete this topic Procedures Procedure Name Priority Date/Time Associated Diagnosis Comments LIPID PANEL Routine 05/24/2019 10:45 AM EST from Last 3 Months or Most Recently Relevant to Health Maintenance Results * (ABNORMAL) Lipid Panel (05/24/2019 10:45 AM EST) Cholesterol 202(H) 0 - 199 mg/dL [facility] Comment: . AGE DESIRABLE BORDERLINE HIGH HIGH 0-19 Y 0 - 169 170 - 199 >/= 200 20-24 Y 0 - 189 190 - 224 >/= 225 >24 Y 0 - 199 200 - 239 >/= 240 All ranges are based on fasting samples. Specific therapeutic targets will vary based on patient-specific cardiac risk. . Pediatric guidelines reference:Pediatrics 2011, 128(S5). Adult guidelines reference: NCEP ATPIII Guidelines, HA 2001, 258:2486-97 . Venipuncture immediately after or during the administration of Metamizole may lead to falsely low results. Testing should be performed immediately prior to Metamizole dosing. HDL 46.0 mg/dL [facility] Comment: . AGE VERY LOW LOW NORMAL HIGH 0-19 Y < 35 < 40 40-45 ---- 20-24 Y ---- < 40 >45 ---- >24 Y ---- < 40 40-60 >60 . Cholesterol/HDL Ratio 4.4 [facility] Comment: REF VALUES DESIRABLE < 3.4 HIGH RISK > 5.0 LDL 131(H) 0 - 99 mg/dL [facility] Comment: . NEAR BORD AGE DESIRABLE OPTIMAL HIGH HIGH VERY HIGH 0-19 Y 0 - 109 --- 110-129 >/= 130 ---- 20-24 Y 0 - 119 --- 120-159 >/= 160 ---- >24 Y 0 - 99 100-129 130-159 160-189 >/=190 . VLDL 25 0 - 40 mg/dL [facility] Triglycerides 125 0 - 149 mg/dL [facility] Comment: . AGE DESIRABLE BORDERLINE HIGH HIGH VERY HIGH 0 D-90 D 19 - 174 ---- ---- ---- 91 D- 9 Y 0 - 74 75 - 99 >/= 100 ---- 10-19 Y 0 - 89 90 - 129 >/= 130 ---- 20-24 Y 0 - 114 115 - 149 >/= 150 ---- >24 Y 0 - 149 150 - 199 200- 499 >/= 500 . Venipuncture immediately after or during the administration of Metamizole may lead to falsely low results. Testing should be performed immediately prior to Metamizole dosing. 05/24/2019 10:4 5 AM EST 05/24/2019 5:28 PM EST Fletcher Ziegler MD LAB BLOOD ORDERABLES Final Result [facility] from Last 3 Months or Most Recently Relevant to Health Maintenance Insurance [employer]AGE [employer]AGE Care Teams Oceanographer Physical Relationship Specialty Start Date End Date Generic Provider, No Assigned Pcp, PCP - General 07/09/23
--- OUTSIDE RECORDS SUMMARY | 2024-11-14 07:30 | XMS_ITS | Encounter Summary ---
Author Organization [facility] Address [address] [place] [address] Phone Care Team Providers Care Rib Puller Name Role Phone Emigdio Roland DO Primary Care Provider [phone] Generic Provider, No Assigned Pcp MD Primary Car e Provider Unavailable Encounter Details Date Type Department Care Team (Late st Contact Info) Description 07/10/2022 Orders Only [facility] [address] [place] [address] Conversion, Onbase Social History Tobacco Use Types [...] r Schedule OUTSIDE LAB SCAN Lab Ordered: 07/10/2022 documented as of this encounter Visit Diagnoses Not on filedocumented in this encounter Care Teams Rib Puller Relationship Specialty Start Date End Date Emigdio Roland DO PCP - General 11/24/18 07/08/23 Generic Provider, No Assigned Pcp, PCP - General 07/09/23 documented as of this encounter
--- OUTSIDE RECORDS SUMMARY | 2024-11-14 07:30 | XMS_ITS | Encounter Summary ---
Author Organization [facility] Address [address] [place] [address] Phone Care Team Providers Care Unit Clerk Name Role Phone Emigdio Roland DO Primary Care Provider [phone] Generic Provider, No Assigned Pcp MD Primary Car e Provider Unavailable Encounter Details Date Type Department Care Team (Late st Contact Info) Description 03/31/2019 Orders Only [facility] [address] [place] [address] Conversion, Onbase Social History Tobacco Use Types [...] r Schedule OUTSIDE LAB SCAN Lab Ordered: 03/31/2019 documented as of this encounter Visit Diagnoses Not on filedocumented in this encounter Care Teams Unit Clerk Relationship Specialty Start Date End Date Emigdio Roland DO PCP - General 11/24/18 07/08/23 Generic Provider, No Assigned Pcp, PCP - General 07/09/23 documented as of this encounter
--- OUTSIDE RECORDS SUMMARY | 2024-11-14 07:30 | XMS_ITS | Encounter Summary ---
Author Organization [facility] Address [address] [address] Phone Care Team Providers Care Manager Front Name Role Phone Emigdio Roland DO Primary Care Provider Generic Provider, No Assigned Pcp MD Primary Car e Provider Unavailable Encounter Details Date Type Department Care Team (Late st Contact Info) Description 06/23/2019 Orders Only [facility] [address] [place] [address] Conversion, Onbase Social History Tobacco Use Types [...] r Schedule OUTSIDE LAB SCAN Lab Ordered: 06/23/2019 documented as of this encounter Visit Diagnoses Not on filedocumented in this encounter Care Teams Manager Front Relationship Specialty Start Date End Date Emigdio Roland DO PCP - General 11/24/18 07/08/23 Generic Provider, No Assigned Pcp, PCP - General 07/09/23 documented as of this encounter
--- OUTSIDE RECORDS SUMMARY | 2024-11-14 07:30 | XMS_ITS | Clinical Summary ---
Author Organization [employer] Address [id number] [address] [place] [address] Care Team Providers Care Press And Blow Machine Tender Name Role Phone Emigdio Roland DO Primary Care Provider [phone] Allergies No known active allergies Medications rivaroxaban (XARELTO) 20 mg tablet tablet Take 20 mg by mouth Daily at 0600. Active timolol (TIMOPTIC) 0.5 % ophthalmic solutionIndicati ons:angle-closur e glaucoma 1 drop 2 (two) times a day. Active niacin (VITAMIN B3) 500 mg tablet Take 500 mg by mouth daily with breakfast. Active cholecalciferol, vitamin D3, (VITAMIN D3) 1,000 unit capsule Take 1,000 Units by mouth daily. Active pyridoxine, vitamin B6, (vitamin B-6) 100 mg tablet Take 100 mg by mouth daily. Active cyanocobalamin (vitamin B-12) 500 MCG tablet Take 500 mcg by mouth daily. Active Family History Medical History Relation Name Comments Heart disease Father Heart disease Mother Cancer Sister 3 Relation Name Status Comments Brother Alive Father Mother Sister 1 Alive Sister 2 Alive Sister 3 Social History Tobacco Use Types Packs/Day Years Used Date Smoking Tobacco: Never Assessed Childcare Answer Date Recorded Childcare Unknown 11/17/2018 Employment Answer Date Recorded Employment Unknown 11/17/2018 Purpose - Life Answer Date Recorded Purpose and direction in life Unknown Sex and Gender Information Value Date Recorded Sex Assigned at Not on file Legal Sex Male 12:01 PM EDT Gender Identity Not on file Sexual Orientation Not on file Last Filed Vital Signs Vital Sign Reading Time Taken Comments Blood Pressure 141/86 09/09/2017 8:01 AM EDT Pulse 83 09/09/2017 8:01 AM EDT Temperature - - Respiratory Rate - - Oxygen Saturation - - Inhaled Oxygen Concentration - - Weight 106.6 kg (235 lb) 09/09/2017 8:01 AM EDT Height 182.9 cm (6') 09/09/2017 8:01 AM EDT Body Mass Index 31.87 09/09/2017 8:01 AM EDT Plan of Treatment Not on file Medical Devices Not on file Insurance [facility] MEDICARE Care Teams Press And Blow Machine Tender Relationship Specialty Start Date End Date Emigdio Roland DO PCP - General 07/23/17
--- OUTSIDE RECORDS SUMMARY | 2024-11-14 07:30 | XMS_ITS | Encounter Summary ---
Author Organization [facility] Address [address] [place] [address] Phone Care Team Providers Care Transmitter Operator Name Role Phone Emigdio Roland DO Primary Care Provider [phone] Generic Provider, No Assigned Pcp MD Primary Car e Provider Unavailable Encounter Details Date Type Department Care Team (Late st Contact Info) Description 03/03/2023 Orders Only [facility] [address] [place] [address] Conversion, Onbase Social History Tobacco Use Types [...] r Schedule OUTSIDE LAB SCAN Lab Ordered: 03/03/2023 documented as of this encounter Visit Diagnoses Not on filedocumented in this encounter Care Teams Transmitter Operator Relationship Specialty Start Date End Date Emigdio Roland DO PCP - General 11/24/18 07/08/23 Generic Provider, No Assigned Pcp, PCP - General 07/09/23 documented as of this encounter
--- OUTSIDE RECORDS SUMMARY | 2024-11-14 07:30 | XMS_ITS | Encounter Summary ---
Author Organization [facility] Address [address] [place] [address] Phone Care Team Providers Care Sales And Service Advisor Name Role Phone Emigdio Roland DO Primary Care Provider [phone] Generic Provider, No Assigned Pcp MD Primary Car e Provider Unavailable Encounter Details Date Type Department Care Team (Late st Contact Info) Description 07/31/2022 Orders Only [facility] [address] [place] [address] Conversion, Onbase Social History Tobacco Use Types [...] r Schedule OUTSIDE LAB SCAN Lab Ordered: 07/31/2022 documented as of this encounter Visit Diagnoses Not on filedocumented in this encounter Care Teams Sales And Service Advisor Relationship Specialty Start Date End Date Emigdio Roland DO PCP - General 11/24/18 07/08/23 Generic Provider, No Assigned Pcp, PCP - General 07/09/23 documented as of this encounter
--- OUTSIDE RECORDS SUMMARY | 2024-11-14 07:30 | XMS_ITS | Encounter Summary ---
Author Organization [facility] Address [address] [place] [address] Phone Care Team Providers Care Demolition Worker Name Role Phone Emigdio Roland DO Primary Care Provider [phone] Generic Provider, No Assigned Pcp MD Primary Car e Provider Unavailable Encounter Details Date Type Department Care Team (Late st Contact Info) Description 09/03/2022 Orders Only [facility] [address] [place] [address] Conversion, Onbase Social History Tobacco Use Types [...] r Schedule OUTSIDE LAB SCAN Lab Ordered: 09/03/2022 documented as of this encounter Visit Diagnoses Not on filedocumented in this encounter Care Teams Demolition Worker Relationship Specialty Start Date End Date Emigdio Roland DO PCP - General 11/24/18 07/08/23 Generic Provider, No Assigned Pcp, PCP - General 07/09/23 documented as of this encounter
--- OUTSIDE RECORDS SUMMARY | 2024-11-14 07:30 | XMS_ITS | Encounter Summary ---
Author Organization [facility] Address [address] [place] [address] Phone Care Team Providers Care Manager Validation Name Role Phone Emigdio Roland DO Primary Care Provider [phone] Generic Provider, No Assigned Pcp MD Primary Car e Provider Unavailable Encounter Details Date Type Department Care Team (Late st Contact Info) Description 02/13/2022 Orders Only [facility] [address] [place] [address] Conversion, Onbase Social History Tobacco Use Types [...] r Schedule OUTSIDE LAB SCAN Lab Ordered: 02/13/2022 documented as of this encounter Visit Diagnoses Not on filedocumented in this encounter Care Teams Manager Validation Relationship Specialty Start Date End Date Emigdio Roland DO PCP - General 11/24/18 07/08/23 Generic Provider, No Assigned Pcp, PCP - General 07/09/23 documented as of this encounter
--- OUTSIDE RECORDS SUMMARY | 2024-11-14 07:30 | XMS_ITS | Encounter Summary ---
Author Organization [facility] Address [address] [place] [address] [place] [address] Care Team Providers Care Psychotherapist Name Role Phone Tyson Bhatti MD Primary Care Provider [phone] Mike Pretty DO Unavailable [phone] Encounter Details Date Type Department Care Team ([facility] Contact Info) Description 02/18/2024 Abstract [facility] [address] [facility] [address] [place] [phone] Unallocated, Noms Provider, [address] [place] [address] Social History Tobacco Use Types Packs/Day Years Used Date Smoking Tobacco: Former Cigarettes Smokeless Tobacco: Never Sex and Gender Information Value Date Recorded Sex Assigned at Not on file Legal Sex Male 8:34 PM EDT Gender Identity Not on file Sexual Orientation Not on file documented as of this encounter Plan of Treatment Upcoming Encounters Date Type Department Care Team ([facility] Contact Info) Description 11/28/2024 3:30 PM EDT Office Visit [facility] [address] [facility] [address] [place] [address] Tyson Bhatti MD [address] [facility] [address] [place], [place] [phone] documented as of this encounter Visit Diagnoses Not on filedocumented in this encounter Care Teams Psychotherapist Relationship Specialty Start Date End Date Tyson Bhatti MD [address] [facility] [address] [place] [address] PCP - General Internal Medicine 06/03/24 Mike Pretty DO [address] [place] [address] Referring Physician Neurology 10/03/24 documented as of this encounter
--- OUTSIDE RECORDS SUMMARY | 2024-11-14 07:30 | XMS_ITS | Clinical Summary ---
Author Organization [facility] Address [address] [place] [address] Care Team Providers Care Type Photography Supervisor Name Role Phone Tyson Bhatti MD Primary Care Provider [phone] Mike Pretty DO Unavailable [phone] Allergies No known active allergies Medications atorvastatin (Lipitor) 20 MG tablet Take 20 mg by mouth in the morning. 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) Take 1 tablet (50 mg) by mouth at bedtime 30 tablet 11 4 01/13/20 25 Active Omeprazole 20 MG tablet delayed-release Take 20 mg by mouth Daily 4 Active cyanocobalamin (Vitamin B-12) 1000 MCG tablet Take 1,000 mcg by mouth Daily Active losartan-hydroCHL OROthiazide (Hyzaar) 50-12.5 MG tabletIndications :LVH (left ventricular hypertrophy),Loca lized edema Take 1 tablet by mouth Daily 90 tablet 3 4 02/17/20 25 Active warfarin (Coumadin) 4 MG tabletIndications :Longstanding persistent atrial fibrillation (CMS/HCC) Take 1 tablet (4 mg) by mouth 1 (one) time each day Take as directed per After Visit Summary.- dose changing weekly per lab results 90 tablet 11 4 Active Active Problems Problem Noted Date Diagnosed Date Anticoagulant long-term use 07/04/2024 Acute encephalopathy 02/29/2024 BMI 31.0-31.9,adult 02/29/2024 Hallucinations 02/29/2024 Hypertensive urgency 02/29/2024 Iron deficiency anemia 02/29/2024 Low mean corpuscular volume (MCV) 02/29/2024 Moderate late onset Alzheime r's dementia without behavioral disturbance, psychotic disturbance, mood disturbance, or anxiety 02/17/2024 LVH (left ventricular hypertrophy) 02/17/2024 Localized edema 02/17/2024 Anemia 02/10/2024 B12 deficiency 02/10/2024 Antral erosion 02/10/2024 Jose Manuel ulcer 02/10/2024 Diverticulosis 02/10/2024 Old cerebrovascular accident (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 02/10/2024 Atrial fibrillation 02/10/2024 Primary osteoarthritis of left ankle 02/10/2024 Primary open angle glaucoma (POAG) of both eyes, moderate stage 07/24/2023 Murmur, heart 06/19/2023 CAD (coronary artery disease) 01/24/2023 Former smoker 01/24/2023 High risk medication use 01/24/2023 History of coronary artery bypass graft 01/25/20 Encounters Date Type Department Care Team Description 11/12/2024 Results Follow-Up [facility] [address] [facility] [address] [place] [phone] Isabelle Rucker, JIMMIE 11/10/2024 External Result Encounter [facility] External Department Unsolicited Isabelle Rucker, JIMMIE 11/10/2024 Telephone [facility] [address] [facility] [address] [place] [phone] Isabelle Rucker, JIMMIE 11/08/2024 Abstract [facility] [address] [facility] [address] [place] [address] Tyson Bhatti MD 11/03/2024 Patient Outreach [facility] [address] [place] [address] Darline Jones RN 10/10/2024 3:30 PM EDT Office Visit [facility] [address] [facility] [address] [place] [address] Tyson Bhatti MD Longstanding persistent atrial fibrillation (CMS/HCC) 10/10/2024 Travel 10/03/2024 9:45 AM EDT Office Visit [facility] [address] [place] [address] Mike Pretty DO 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) (Primary Dx); History of ischemic stroke 10/03/2024 Bamboo flowsheet [facility] [address] [place] [address] Mike Pretty DO 09/07/2024 Abstract [facility] [address] [facility] [address] [place] [address] Tyson Bhatti MD 08/29/2024 3:00 PM EDT Office Visit [facility] [address] [facility] [address] [place] [address] Tyson Bhatti MD Alzheimer's disease with late onset (CODE) (CMS/HCC) (Primary Dx); Longstanding persistent atrial fibrillation (CMS/HCC) 08/29/2024 Bamboo flowsheet [facility] [address] [facility] [address] [place] [address] Tyson Bhatti MD 08/29/2024 Travel 08/15/2024 Abstract [facility] [address] [facility] [address] [place] [address] Tyson Bhatti MD from Last 3 Months Family History Relation Name Status Comments Father Mother Social History Tobacco Use Types Packs/Day Years Used Date Smoking Tobacco: Former Cigarettes Smokeless Tobacco: Never Tobacco Cessation:Counseling Given: Not Answered Alcohol Use Standard Drinks/Week Comments Defer 0 [...] Sign Reading Time Taken Comments Blood Pressure 112/82 10/10/2024 3:27 PM EDT Pulse 70 10/10/2024 3:49 PM EDT Temperature - - Respiratory Rate 16 07/04/2024 9:02 AM EST Oxygen Saturation 97% 10/10/2024 3:27 PM EDT Inhaled Oxygen Concentration - - Weight 104 kg (229 lb) 10/10/2024 3:27 PM EDT Height 182.9 cm (6') 10/10/2024 3:27 PM EDT Body Mass Index 31.06 10/10/2024 3:27 PM EDT Plan of Treatment Upcoming Encounters Date Type Department Care Team (Late st Contact Info) Description 11/28/2024 3:30 PM EDT Office Visit [facility] [address] [place] [address] Tyson Bhatti MD 112 [facility] [address] [place] [address] Health Maintenance Due Date Last Done Comments Pneumococcal Vaccine: 65+ Years (1 of 2 - PCV) 962 Influenza Vaccine (Season Ended) 2025 Procedures Procedure Name Priority Date/Time Associated Diagnosis Comments XR KNEE 4+ VIEWS LEFT 11/10/2024 6:03 PM EDT POCT PROTIME-INR, FINGERSTICK Routine 10/10/2024 3:35 PM EDT Longstanding persistent atrial fibrillation (CMS/HCC) POCT PROTIME-INR, FINGERSTICK Routine 08/29/2024 3:12 PM EDT Longstanding persistent atrial fibrillation (CMS/HCC) from Last 3 Months Results * XR knee 4+ views left (11/10/2024 6:03 PM EDT) Anatomical Region Laterality Modality Lower Extremities, Knee Left Radiogra phic Imaging 11/10/2024 6:03 PM EDT Impressions 11/10/2024 6:07 PM EDT No acute findings stable postsurgical changes. Mild degeneration Impression dictated by: Vitor Church M.D. 11/10/2024 6:04 PM Dictation Location: [facility] Transcribed By: SKYLER 11/10/24 0770 Dictated By: Vitor Church DO 11/10/241802 Signed By: <Electronically signed by Vitor Church DO in OV> 11/10/241803 Narrative 11/10/2024 6:07 PM EDT [address] [address] XRay Report Signed Patient: Emigdio Jeong III MR#: [id number] : 1940 Acct:[id number] Age/Sex: 84 / M ADM Date: 11/10/24 Loc: XDCLY Room: Type: [facility] CLI Attending Dr: Isabelle Rucker FINANCIAL ANALYSIS CONSULTANT-C Copies to: KAREN De La Cruz Ordering Provider: KAREN De La Cruz Date of Service: 11/10/24 XR/XR knee LT 4V*: Fall 4 views left knee plain film COMPARISON: 11/02/2024 HISTORY: Fell injuring left knee ACUTE FINDINGS: No acute findings DEGENERATIVE CHANGE: Similar mild degeneration SOFT TISSUE FINDINGS: Unremarkable JOINT EFFUSION: None POSTOP CHANGES: Stable visualized fixation hardware the tibia vascular clips BONE MINERALIZATION: Adequate XR/XR knee LT 4V* Procedure Note Radiology, Radiologist, MD - 11/10/[address] [address] XRay Report Signed Patient: Emigdio Jeong IIIMR#: [id number] : 1940cct:[id number] Age/Sex: 84 / MADM Date: 11/10/24 Loc: XDC Room:Type: [facility] CLI Attending Dr: Isabelle Rucker FINANCIAL ANALYSIS CONSULTANT-C Copies to: KAREN De La Cruz Ordering Provider: KAREN De La Cruz Date of Service: 11/10/24 XR/XR knee LT 4V*: Fall 4 views left knee plain film COMPARISON: 11/02/2024 HISTORY: Fell injuring left knee ACUTE FINDINGS: No acute findings DEGENERATIVE CHANGE: Similar mild degeneration SOFT TISSUE FINDINGS: Unremarkable JOINT EFFUSION: None POSTOP CHANGES: Stable visualized fixation hardware the tibia vascularclips BONE MINERALIZATION: Adequate XR/XR knee LT 4V* IMPRESSION: No acute findings stable postsurgical changes. Mild degeneration Impression dictated by: Vitor Church M.D. 11/10/2024 6:04 PM Dictation Location: [facility]20 Transcribed By: [facility] 11/10/241803 Dictated By: Vitor Church DO 11/10/241802 Signed By: <Electronically signed by Vitor Church DO in OV> 11/10/241803 us Isabelle Rucker FINANCIAL ANALYSIS CONSULTANT IMG XR PROCEDURES Final Result * POCT Protime-INR, fingerstick docked device (10/10/2024 3:35 PM EDT) Only the most recent of2 resultswithin the time period is included. RESULTS 3.3 Blood Venous blood specimen / Unknown 10/10/2024 3:35 PM EDT Tyson Bhatti MD POINT OF CARE TEST ENTER/EDIT ORDERABLES Final Result from Last 3 Months Insurance [employer] Advance Directives Documents on File Type Date Recorded Patient Charge Authorizer Expl anation Power of Importer Or Exporter 02/24/2024 1:45 PM [facility] POWER OF JOB ORDER CLERK Care Teams Type Photography Supervisor Relationship Specialty Start Date End Date Tyson Bhatti MD [address] [place] [address] [address] PCP - General Internal Medicine 06/03/24 Mike Pretty DO [address] [place] [address] Referring Physician Neurology 10/03/24
--- OUTSIDE RECORDS SUMMARY | 2024-11-14 07:30 | XMS_ITS | Encounter Summary ---
Author Organization [facility] Address [address] [place] [address] Phone Care Team Providers Care Wind Farm Designer Name Role Phone Emigdio Roland DO Primary Care Provider [phone] Generic Provider, No Assigned Pcp MD Primary Car e Provider Unavailable Encounter Details Date Type Department Care Team (Late st Contact Info) Description 07/03/2020 Orders Only [facility] [address] [place] [address] Conversion, Onbase Social History Tobacco Use Types [...] r Schedule OUTSIDE LAB SCAN Lab Ordered: 07/03/2020 documented as of this encounter Visit Diagnoses Not on filedocumented in this encounter Care Teams Wind Farm Designer Relationship Specialty Start Date End Date Emigdio Roland DO PCP - General 11/24/18 07/08/23 Generic Provider, No Assigned Pcp, PCP - General 07/09/23 documented as of this encounter
--- OUTSIDE RECORDS SUMMARY | 2024-11-14 07:30 | XMS_ITS ---
Author Organization [facility] Address [address] [place] [address] Care Team Providers Care Lead Driver Name Role Phone Tyson Bhatti MD Primary Care Provider [phone] Mike Pretty DO Unavailable [phone] Emergency Department Transitional Care Management (TCM) Status:Closed (Closed) Start date:11/02/2024 Enrollment date:11/03/2024 Enrollment reason:Identified using hospital discharge data End date:11/03/2024 Close reason:Discharged home Overview Discharged from [facility] ER on 11/02. Please contact within 2 days of discharge for ER NILES and schedule a follow-up appointment if needed. <November 03, 2024, 13:53 - Darline Jones RN> Niles completed. Declines ccm. Lives in assisted living at [facility] Continued Care and Services Coordination
--- OUTSIDE RECORDS SUMMARY | 2024-11-14 07:30 | XMS_ITS | Encounter Summary ---
Author Organization [facility] Address [address] [place] [address] Phone Care Team Providers Care Hospice Art Therapist Name Role Phone Emigdio Roland DO Primary Care Provider [phone] Generic Provider, No Assigned Pcp MD Primary Car e Provider Unavailable Encounter Details Date Type Department Care Team (Late st Contact Info) Description 05/26/2019 Orders Only [facility] [address] [place] [address] Conversion, Onbase Social History Tobacco Use Types [...] r Schedule OUTSIDE LAB SCAN Lab Ordered: 05/26/2019 documented as of this encounter Visit Diagnoses Not on filedocumented in this encounter Care Teams Hospice Art Therapist Relationship Specialty Start Date End Date Emigdio Roland DO PCP - General 11/24/18 07/08/23 Generic Provider, No Assigned Pcp, PCP - General 07/09/23 documented as of this encounter
--- OUTSIDE RECORDS SUMMARY | 2024-11-14 07:30 | XMS_ITS | Encounter Summary ---
Author Organization [facility] Address [address] [place] [address] Phone Care Team Providers Care Slide Attendant Name Role Phone Emigdio Roland DO Primary Care Provider Generic Provider, No Assigned Pcp MD Primary Car e Provider Unavailable Encounter Details Date Type Department Care Team (Late st Contact Info) Description 02/10/2019 Orders Only [facility] [address] [place] [address] Conversion, Onbase Social History Tobacco Use Types [...] r Schedule OUTSIDE LAB SCAN Lab Ordered: 02/10/2019 OUTSIDE LAB SCAN Lab Ordered: 02/10/2019 documented as of this encounter Visit Diagnoses Not on filedocumented in this encounter Care Teams Slide Attendant Relationship Specialty Start Date End Date Emigdio Roland DO PCP - General 11/24/18 07/08/23 Generic Provider, No Assigned Pcp, PCP - General 07/09/23 documented as of this encounter
--- OUTSIDE RECORDS SUMMARY | 2024-11-14 07:30 | XMS_ITS | Encounter Summary ---
Author Organization [facility] Address [address] [place] [address] Phone Care Team Providers Care Tail Worker Name Role Phone Emigdio Roland DO Primary Care Provider [phone] Generic Provider, No Assigned Pcp MD Primary Car e Provider Unavailable Encounter Details Date Type Department Care Team (Late st Contact Info) Description 04/26/2020 Orders Only [facility] [address] [place] [address] Conversion, Onbase Social History Tobacco Use Types [...] r Schedule OUTSIDE LAB SCAN Lab Ordered: 04/26/2020 documented as of this encounter Visit Diagnoses Not on filedocumented in this encounter Care Teams Tail Worker Relationship Specialty Start Date End Date Emigdio Roland DO PCP - General 11/24/18 07/08/23 Generic Provider, No Assigned Pcp, PCP - General 07/09/23 documented as of this encounter
--- OUTSIDE RECORDS SUMMARY | 2024-11-14 07:30 | XMS_ITS | Encounter Summary ---
Author Organization [facility] Address [address] [facility] [place] [address] Care Team Providers Care Window Shade Ring Sewer Name Role Phone Tyson Bhatti MD Primary Care Provider [phone] Mike Pretty DO Unavailable [phone] Encounter Details Date Type Department Care Team ([facility] Contact Info) Description 02/18/2024 Abstract [facility] [address] [facility] [address] [place] [phone] Unallocated, Noms Provider, [address] [place] [address] Social History Tobacco Use Types Packs/Day Years Used Date Smoking Tobacco: Former Cigarettes Smokeless Tobacco: Never Sex and Gender Information Value Date Recorded Sex Assigned at Not on file Legal Sex Male 8:34 PM EDT Gender Identity Not on file Sexual Orientation Not on file documented as of this encounter Plan of Treatment Upcoming Encounters Date Type Department Care Team ([facility] Contact Info) Description 11/28/2024 3:30 PM EDT Office Visit [facility] [address] [facility] [address] [place] [address] Tyson Bhatti MD [address] [facility] 110 [place], [place] [id number] documented as of this encounter Visit Diagnoses Not on filedocumented in this encounter Care Teams Window Shade Ring Sewer Relationship Specialty Start Date End Date Tyson Bhatti MD [address] [facility] 110 [place] [address] PCP - General Internal Medicine 06/03/24 Mike Pretty DO [address] [place] [address] Referring Physician Neurology 10/03/24 documented as of this encounter
--- OUTSIDE RECORDS SUMMARY | 2024-11-14 07:30 | XMS_ITS | Encounter Summary ---
Author Organization [facility] Address [address] [facility] [place] [address] Care Team Providers Care Line And Frame Poler Name Role Phone Tyson Bhatti MD Primary Care Provider [phone] Mike Pretty DO Unavailable [phone] Encounter Details Date Type Department Care Team ([facility] Contact Info) Description 02/18/2024 Abstract [facility] [address] [facility] 110 [place] [address] Unallocated, Noms Provider, [address] [place] [address] Social History Tobacco Use Types Packs/Day Years Used Date Smoking Tobacco: Former Cigarettes Smokeless Tobacco: Never Sex and Gender Information Value Date Recorded Sex Assigned at Not on file Legal Sex Male 8:34 PM EDT Gender Identity Not on file Sexual Orientation Not on file documented as of this encounter Plan of Treatment Upcoming Encounters Date Type Department Care Team ([facility] Contact Info) Description 11/28/2024 3:30 PM EDT Office Visit [facility] [address] [facility] 110 [place] [address] Tyson Bhatti MD [address] [facility] 110 [place], [place] [id number] documented as of this encounter Visit Diagnoses Not on filedocumented in this encounter Care Teams Line And Frame Poler Relationship Specialty Start Date End Date Tyson Bhatti MD [address] [facility] 110 [place] [address] PCP - General Internal Medicine 06/03/24 Mike Pretty DO [address] [place] [address] Referring Physician Neurology 10/03/24 documented as of this encounter
--- OUTSIDE RECORDS SUMMARY | 2024-11-14 07:30 | XMS_ITS | Encounter Summary ---
Author Organization [facility] Address [address] [place] [address] Phone Care Team Providers Care Tamale Maker Name Role Phone Emigdio Roland DO Primary Care Provider [phone] Generic Provider, No Assigned Pcp MD Primary Car e Provider Unavailable Encounter Details Date Type Department Care Team (Late st Contact Info) Description 01/21/2023 Orders Only [facility] [address] [place] [address] Conversion, Onbase Social History Tobacco Use Types [...] r Schedule OUTSIDE LAB SCAN Lab Ordered: 01/21/2023 documented as of this encounter Visit Diagnoses Not on filedocumented in this encounter Care Teams Tamale Maker Relationship Specialty Start Date End Date Emigdio Roland DO PCP - General 11/24/18 07/08/23 Generic Provider, No Assigned Pcp, PCP - General 07/09/23 documented as of this encounter
--- OUTSIDE RECORDS SUMMARY | 2024-11-14 07:30 | XMS_ITS | Encounter Summary ---
Author Organization [facility] Address [address] [place] [address] Phone Care Team Providers Care Roll Table Operator Name Role Phone Emigdio Roland DO Primary Care Provider [phone] Generic Provider, No Assigned Pcp MD Primary Car e Provider Unavailable Encounter Details Date Type Department Care Team (Late st Contact Info) Description 01/16/2022 Orders Only [facility] [address] [place] [address] Conversion, Onbase Social History Tobacco Use Types [...] r Schedule OUTSIDE LAB SCAN Lab Ordered: 01/16/2022 documented as of this encounter Visit Diagnoses Not on filedocumented in this encounter Care Teams Roll Table Operator Relationship Specialty Start Date End Date Emigdio Roland DO PCP - General 11/24/18 07/08/23 Generic Provider, No Assigned Pcp, PCP - General 07/09/23 documented as of this encounter
--- OUTSIDE RECORDS SUMMARY | 2024-11-14 07:30 | XMS_ITS | Encounter Summary ---
Author Organization [facility] Address [address] [place] [address] Phone Care Team Providers Care Silversmith Apprentice Name Role Phone Emigdio Roland DO Primary Care Provider [phone] Generic Provider, No Assigned Pcp MD Primary Car e Provider Unavailable Encounter Details Date Type Department Care Team (Late st Contact Info) Description 07/28/2019 Orders Only [facility] [address] [place] [address] Conversion, Onbase Social History Tobacco Use Types [...] r Schedule OUTSIDE LAB SCAN Lab Ordered: 07/28/2019 documented as of this encounter Visit Diagnoses Not on filedocumented in this encounter Care Teams Silversmith Apprentice Relationship Specialty Start Date End Date Emigdio Roland DO PCP - General 11/24/18 07/08/23 Generic Provider, No Assigned Pcp, PCP - General 07/09/23 documented as of this encounter
--- OUTSIDE RECORDS SUMMARY | 2024-11-14 07:30 | XMS_ITS | Encounter Summary ---
Author Organization [facility] Address [address] [place] [address] Phone Care Team Providers Care Office Clinician Name Role Phone Emigdio Roland DO Primary Care Provider [phone] Generic Provider, No Assigned Pcp MD Primary Car e Provider Unavailable Encounter Details Date Type Department Care Team (Late st Contact Info) Description 2019 Orders Only [facility] [address] [place] [address] Conversion, Onbase Social History Tobacco Use Types [...] r Schedule OUTSIDE LAB SCAN Lab Ordered: 2019 documented as of this encounter Visit Diagnoses Not on filedocumented in this encounter Care Teams Office Clinician Relationship Specialty Start Date End Date Emigdio Roland DO PCP - General 11/24/18 07/08/23 Generic Provider, No Assigned Pcp, PCP - General 07/09/23 documented as of this encounter
--- OUTSIDE RECORDS SUMMARY | 2024-11-14 07:30 | XMS_ITS | Encounter Summary ---
Author Organization [facility] Address [address] [place] [address] Care Team Providers Care Building Stonecutter Name Role Phone Tyson Bhatti MD Primary Care Provider [phone] Mike Pretty DO Unavailable [phone] Encounter Details Date Type Department Care Team (Late st Contact Info) Description 12/21/2023 Orders Only [facility] [address] [place] [address] Felipe Lopez DO Social History Tobacco Use Types Packs/Day Years Used Date Smoking Tobacco: Former Cigarettes Sex and Gender Information Value Date Recorded Sex Assigned at Not on file Legal Sex Male 8:34 PM EDT Gender Identity Not on file Sexual Orientation Not on file documented as of this encounter Plan of Treatment Upcoming Encounters Date Type Department Care Team (Late Contact Info) Description 11/28/2024 3:30 PM EDT Office Visit [facility] [address] [facility] 110 [place] [address] Tyson Bhatti MD [address] [facility] 110 [place], [place] [address] documented as of this encounter Procedures Procedure Name Priority Date/Time Associated Diagnosis Comments MRI HEAD/BRAIN WO CONTRAS Routine 12/21/2023 9:51 AM EDT documented in this encounter Results * MRI HEAD/BRAIN WO CONTRAS (12/21/2023 9:51 AM EDT) Anatomical Region Laterality Modality Radiographic Nedra ging us Felipe Kapler DO IMG XR PROCEDURES Final Result documented in this encounter Visit Diagnoses Not on filedocumented in this encounter Care Teams Building Stonecutter Relationship Specialty Start Date End Date Tyson Bhatti MD [address] [address] PCP - General Internal Medicine 06/03/24 Mike Pretty DO [address] [address] Referring Physician Neurology 10/03/24 documented as of this encounter
--- OUTSIDE RECORDS SUMMARY | 2024-11-14 07:30 | XMS_ITS | Encounter Summary ---
Author Organization [facility] Address [address] [place] [address] Care Team Providers Care Blurb Writer Name Role Phone Tyson Bhatti MD Primary Care Provider [phone] Mike Pretty DO Unavailable [phone] Reason for Visit * Reason Comments Med Refill Encounter Details Date Type Department Care Team ([facility] Contact Info) Description 09/09/2023 Refill [facility] [address] [place] [address] [place] [phone] Omar Richardson DO [address] [place] [address] Primary open angle glaucoma (POAG) of both eyes, moderate stage (CMS/HCC) Social History Tobacco Use Types Packs/Day Years Used Date Smoking Tobacco: Former Cigarettes Sex and Gender Information Value Date Recorded Sex Assigned at Not on file Legal Sex Male 8:34 PM EDT Gender Identity Not on file Sexual Orientation Not on file documented as of this encounter Plan of Treatment Upcoming Encounters Date Type Department Care Team ([facility] Contact Info) Description 11/28/2024 3:30 PM EDT Office Visit [facility] [address] [facility] 110 [place] [address] Tyson Bhatti MD [address] [facility] 110 [place] [address] documented as of this encounter Visit Diagnoses Diagnosis Primary open angle glaucoma (POAG) of both eyes, moderate stage documented in this encounter Care Teams Blurb Writer Relationship Specialty Start Date End Date Tyson Bhatti MD [address] [address] PCP - General Internal Medicine 06/03/24 Mike Pretty DO [address] [address] Referring Physician Neurology 10/03/24 documented as of this encounter
--- OUTSIDE RECORDS SUMMARY | 2024-11-14 07:30 | XMS_ITS | Encounter Summary ---
Author Organization [facility] Address [address] [place] [address] Phone Care Team Providers Care Paragliding Instructor Name Role Phone Emigdio Roland DO Primary Care Provider [phone] Generic Provider, No Assigned Pcp MD Primary Car e Provider Unavailable Encounter Details Date Type Department Care Team (Late st Contact Info) Description 12/19/2021 Orders Only [facility] [address] [place] [address] Conversion, Onbase Social History Tobacco Use Types [...] r Schedule OUTSIDE LAB SCAN Lab Ordered: 12/19/2021 documented as of this encounter Visit Diagnoses Not on filedocumented in this encounter Care Teams Paragliding Instructor Relationship Specialty Start Date End Date Emigdio Roland DO PCP - General 11/24/18 07/08/23 Generic Provider, No Assigned Pcp, PCP - General 07/09/23 documented as of this encounter
--- OUTSIDE RECORDS SUMMARY | 2024-11-14 07:30 | XMS_ITS | Encounter Summary ---
Author Organization [facility] Address [address] [place] [address] Phone Care Team Providers Care Warehouse Man Name Role Phone Emigdio Roland DO Primary Care Provider [phone] Generic Provider, No Assigned Pcp MD Primary Car e Provider Unavailable Encounter Details Date Type Department Care Team (Late st Contact Info) Description 04/28/2019 Orders Only [facility] [address] [place] [address] Conversion, Onbase Social History Tobacco Use Types [...] r Schedule OUTSIDE LAB SCAN Lab Ordered: 04/28/2019 documented as of this encounter Visit Diagnoses Not on filedocumented in this encounter Care Teams Warehouse Man Relationship Specialty Start Date End Date Emigdio Roland DO PCP - General 11/24/18 07/08/23 Generic Provider, No Assigned Pcp, PCP - General 07/09/23 documented as of this encounter
--- OUTSIDE RECORDS SUMMARY | 2024-11-14 07:30 | XMS_ITS | Encounter Summary ---
Author Organization [facility] Address [address] [place] [address] Phone Care Team Providers Care Chalk Molding Machine Operator Name Role Phone Emigdio Roland DO Primary Care Provider [phone] Generic Provider, No Assigned Pcp MD Primary Car e Provider Unavailable Encounter Details Date Type Department Care Team (Late st Contact Info) Description 08/28/2020 Orders Only [facility] [address] [place] [address] Conversion, Onbase Social History Tobacco Use Types [...] r Schedule OUTSIDE LAB SCAN Lab Ordered: 08/28/2020 documented as of this encounter Visit Diagnoses Not on filedocumented in this encounter Care Teams Chalk Molding Machine Operator Relationship Specialty Start Date End Date Emigdio Roland DO PCP - General 11/24/18 07/08/23 Generic Provider, No Assigned Pcp, PCP - General 07/09/23 documented as of this encounter
--- OUTSIDE RECORDS SUMMARY | 2024-11-14 07:30 | XMS_ITS | Encounter Summary ---
Author Organization [facility] Address [address] [place] [address] Phone Care Team Providers Care Patternmaker Plaster Name Role Phone Emigdio Roland DO Primary Care Provider [phone] Generic Provider, No Assigned Pcp MD Primary Car e Provider Unavailable Encounter Details Date Type Department Care Team (Late st Contact Info) Description 04/05/2020 Orders Only [facility] [address] [place] [address] Conversion, Onbase Social History Tobacco Use Types [...] r Schedule OUTSIDE LAB SCAN Lab Ordered: 04/05/2020 documented as of this encounter Visit Diagnoses Not on filedocumented in this encounter Care Teams Patternmaker Plaster Relationship Specialty Start Date End Date Emigdio Roland DO PCP - General 11/24/18 07/08/23 Generic Provider, No Assigned Pcp, PCP - General 07/09/23 documented as of this encounter
--- OUTSIDE RECORDS SUMMARY | 2024-11-14 07:30 | XMS_ITS | Encounter Summary ---
Author Organization [facility] Address [address] [facility] [place] [address] Care Team Providers Care Sheet Metal Operator Name Role Phone Tyson Bhatti MD Primary Care Provider [phone] Mike Pretty DO Unavailable [phone] Encounter Details Date Type Department Care Team ([facility] Contact Info) Description 02/18/2024 Abstract [facility] [address] [facility] 110 [place] [address] Unallocated, Noms Provider, [address] [place] [address] Social History Tobacco Use Types Packs/Day Years Used Date Smoking Tobacco: Former Cigarettes Smokeless Tobacco: Never Sex and Gender Information Value Date Recorded Sex Assigned at Not on file Legal Sex Male 8:34 PM EDT Gender Identity Not on file Sexual Orientation Not on file documented as of this encounter Plan of Treatment Upcoming Encounters Date Type Department Care Team ([facility] Contact Info) Description 11/28/2024 3:30 PM EDT Office Visit [facility] [address] [facility] 110 [place] [address] Tyson Bhatti MD [address] [facility] 110 [place], [place] [address] documented as of this encounter Visit Diagnoses Not on filedocumented in this encounter Care Teams Sheet Metal Operator Relationship Specialty Start Date End Date Tyson Bhatti MD [address] [facility] 110 [place] [address] PCP - General Internal Medicine 06/03/24 Mike Pretty DO [address] [place] [address] Referring Physician Neurology 10/03/24 documented as of this encounter
--- OUTSIDE RECORDS SUMMARY | 2024-11-14 07:30 | XMS_ITS | Encounter Summary ---
Author Organization [facility] Address [address] [place] [address] Phone Care Team Providers Care Peanut Salter Name Role Phone Emigdio Roland DO Primary Care Provider [phone] Generic Provider, No Assigned Pcp MD Primary Car e Provider Unavailable Encounter Details Date Type Department Care Team (Late st Contact Info) Description 02/06/2020 Orders Only [facility] [address] [place] [address] Conversion, Onbase Social History Tobacco Use Types [...] r Schedule OUTSIDE LAB SCAN Lab Ordered: 02/06/2020 documented as of this encounter Visit Diagnoses Not on filedocumented in this encounter Care Teams Peanut Salter Relationship Specialty Start Date End Date Emigdio Roland DO PCP - General 11/24/18 07/08/23 Generic Provider, No Assigned Pcp, PCP - General 07/09/23 documented as of this encounter
--- OUTSIDE RECORDS SUMMARY | 2024-11-14 07:30 | XMS_ITS | Encounter Summary ---
Author Organization [facility] Address [address] [place] [address] Phone Care Team Providers Care Diesel Engine Operator Name Role Phone Emigdio Roland DO Primary Care Provider [phone] Generic Provider, No Assigned Pcp MD Primary Car e Provider Unavailable Encounter Details Date Type Department Care Team (Late st Contact Info) Description 04/19/2020 Orders Only [facility] [address] [place] [address] Conversion, Onbase Social History Tobacco Use Types [...] r Schedule OUTSIDE LAB SCAN Lab Ordered: 04/19/2020 documented as of this encounter Visit Diagnoses Not on filedocumented in this encounter Care Teams Diesel Engine Operator Relationship Specialty Start Date End Date Emigdio Roland DO PCP - General 11/24/18 07/08/23 Generic Provider, No Assigned Pcp, PCP - General 07/09/23 documented as of this encounter
--- OUTSIDE RECORDS SUMMARY | 2024-11-14 07:30 | XMS_ITS | Encounter Summary ---
Author Organization [facility] Address [address] [place] [address] Phone Care Team Providers Care Mosaic Worker Name Role Phone Emigdio Roland DO Primary Care Provider [phone] Generic Provider, No Assigned Pcp MD Primary Car e Provider Unavailable Encounter Details Date Type Department Care Team (Late st Contact Info) Description 11/18/2022 Orders Only [facility] [address] [place] [address] Conversion, Onbase Social History Tobacco Use Types [...] r Schedule OUTSIDE LAB SCAN Lab Ordered: 11/18/2022 documented as of this encounter Visit Diagnoses Not on filedocumented in this encounter Care Teams Mosaic Worker Relationship Specialty Start Date End Date Emigdio Roland DO PCP - General 11/24/18 07/08/23 Generic Provider, No Assigned Pcp, PCP - General 07/09/23 documented as of this encounter
--- OUTSIDE RECORDS SUMMARY | 2024-11-14 07:31 | XMS_ITS | Encounter Summary ---
Author Organization [facility] Address [address] [place] [address] Phone Care Team Providers Care Kiln Stoker Name Role Phone Emigdio Roland DO Primary Care Provider [phone] Generic Provider, No Assigned Pcp MD Primary Car e Provider Unavailable Encounter Details Date Type Department Care Team (Late st Contact Info) Description 11/28/2019 Orders Only [facility] [address] [place] [address] Conversion, Onbase Social History Tobacco Use Types [...] r Schedule OUTSIDE LAB SCAN Lab Ordered: 11/28/2019 documented as of this encounter Visit Diagnoses Not on filedocumented in this encounter Care Teams Kiln Stoker Relationship Specialty Start Date End Date Emigdio Roland DO PCP - General 11/24/18 07/08/23 Generic Provider, No Assigned Pcp, PCP - General 07/09/23 documented as of this encounter
--- OUTSIDE RECORDS SUMMARY | 2024-11-14 07:31 | XMS_ITS | Encounter Summary ---
Author Organization [facility] Address [address] [place] [address] Care Team Providers Care Gas Technician Name Role Phone Tyson Bhatti MD Primary Care Provider [phone] Mike Pretty DO Unavailable [phone] Encounter Details Date Type Department Care Team ([facility] Contact Info) Description 11/10/2024 Telephone [facility] [address] [facility] 110 [place] [id number] Isabelle Rucker NP [address] [facility] 110 [place] [address] Social History Tobacco Use Types Packs/Day Years [...] on file documented as of this encounter Miscellaneous Notes * Telephone Encounter - Isabelle Rucker NP - 11/10/2024 11:03 AM EDT This pt had a fall at [facility] on 11/02/24, he was seen at the ER and did have xrays and a CT of his head. He has continued left knee pain and swelling. Started on a steroid burst 11/08/24 and was instructed to continues ICE to the area as needed. [facility] Therapy to evalk and treat. D/T continued pain we will get a repeat xray of the Left knee. documented in this encounter Plan of Treatment Upcoming Encounters Date Type Department Care Team (Late st Contact Info) Description 11/28/2024 3:30 PM EDT Office Visit [facility] [address] [address] Tyson Bhatti MD [address] [address] Scheduled Orders Name Type Priority Associated Diagnoses Orde r Schedule XR knee 4+ views left Imaging Routine History of fall Pain and swelling of left knee Expected: 11/10/2024 (Approximate), Expires: 11/10/2025 documented as of this encounter Visit Diagnoses Diagnosis History of fall- Primary Personal history of fall Pain and swelling of left knee documented in this encounter Care Teams Gas Technician Relationship Specialty Start Date End Date Tyson Bhatti MD [address] [address] PCP - General Internal Medicine 06/03/24 Mike Pretty DO 112 [address] [place] [address] Referring Physician Neurology 10/03/24 documented as of this encounter
--- OUTSIDE RECORDS SUMMARY | 2024-11-14 07:31 | XMS_ITS | Encounter Summary ---
Author Organization [facility] Address [address] [place] [address] Phone Care Team Providers Care Mortgage Counselor Name Role Phone Emigdio Roland DO Primary Care Provider [phone] Generic Provider, No Assigned Pcp MD Primary Car e Provider Unavailable Encounter Details Date Type Department Care Team (Late st Contact Info) Description 08/08/2021 Orders Only [facility] [address] [place] [address] Conversion, Onbase Social History Tobacco Use Types [...] r Schedule OUTSIDE LAB SCAN Lab Ordered: 08/08/2021 documented as of this encounter Visit Diagnoses Not on filedocumented in this encounter Care Teams Mortgage Counselor Relationship Specialty Start Date End Date Emigdio Roland DO PCP - General 11/24/18 07/08/23 Generic Provider, No Assigned Pcp, PCP - General 07/09/23 documented as of this encounter
--- OUTSIDE RECORDS SUMMARY | 2024-11-14 07:31 | XMS_ITS | Encounter Summary ---
Author Organization [facility] Address [address] [place] [address] Phone Care Team Providers Care Salt Operator Name Role Phone Emigdio Roland DO Primary Care Provider [phone] Generic Provider, No Assigned Pcp MD Primary Car e Provider Unavailable Encounter Details Date Type Department Care Team (Late st Contact Info) Description 09/25/2020 Orders Only [facility] [address] [place] [address] Conversion, Onbase Social History Tobacco Use Types [...] r Schedule OUTSIDE LAB SCAN Lab Ordered: 09/25/2020 documented as of this encounter Visit Diagnoses Not on filedocumented in this encounter Care Teams Salt Operator Relationship Specialty Start Date End Date Emigdio Roland DO PCP - General 11/24/18 07/08/23 Generic Provider, No Assigned Pcp, PCP - General 07/09/23 documented as of this encounter
--- OUTSIDE RECORDS SUMMARY | 2024-11-14 07:31 | XMS_ITS | Encounter Summary ---
Author Organization [facility] Address [address] [place] [address] Phone Care Team Providers Care Ironer Name Role Phone Emigdio Roland DO Primary Care Provider [phone] Generic Provider, No Assigned Pcp MD Primary Car e Provider Unavailable Encounter Details Date Type Department Care Team (Late st Contact Info) Description 01/02/2020 Orders Only [facility] [address] [place] [address] Conversion, Onbase Social History Tobacco Use Types [...] r Schedule OUTSIDE LAB SCAN Lab Ordered: 01/02/2020 documented as of this encounter Visit Diagnoses Not on filedocumented in this encounter Care Teams Ironer Relationship Specialty Start Date End Date Emigdio Roland DO PCP - General 11/24/18 07/08/23 Generic Provider, No Assigned Pcp, PCP - General 07/09/23 documented as of this encounter
--- OUTSIDE RECORDS SUMMARY | 2024-11-14 07:31 | XMS_ITS | Encounter Summary ---
Author Organization [facility] Address [address] [place] [address] Phone Care Team Providers Care Geospatial Systems Integrator Name Role Phone Emigdio Roland DO Primary Care Provider [phone] Generic Provider, No Assigned Pcp MD Primary Car e Provider Unavailable Encounter Details Date Type Department Care Team (Late st Contact Info) Description 03/07/2021 Orders Only [facility] [address] [place] [address] Conversion, Onbase Social History Tobacco Use Types [...] r Schedule OUTSIDE LAB SCAN Lab Ordered: 03/07/2021 documented as of this encounter Visit Diagnoses Not on filedocumented in this encounter Care Teams Geospatial Systems Integrator Relationship Specialty Start Date End Date Emigdio Roland DO PCP - General 11/24/18 07/08/23 Generic Provider, No Assigned Pcp, PCP - General 07/09/23 documented as of this encounter
--- OUTSIDE RECORDS SUMMARY | 2024-11-14 07:31 | XMS_ITS | Encounter Summary ---
Author Organization [facility] Address [address] [place] [address] Phone Care Team Providers Care Labor Arbitrator Hearing Office Name Role Phone Emigdio Roland DO Primary Care Provider Generic Provider, No Assigned Pcp MD Primary Car e Provider Unavailable Encounter Details Date Type Department Care Team (Late st Contact Info) Description 07/09/2021 Orders Only [facility] [address] [place] [address] Conversion, Onbase Social History Tobacco Use Types [...] r Schedule OUTSIDE LAB SCAN Lab Ordered: 07/09/2021 documented as of this encounter Visit Diagnoses Not on filedocumented in this encounter Care Teams Labor Arbitrator Hearing Office Relationship Specialty Start Date End Date Emigdio Roland DO PCP - General 11/24/18 07/08/23 Generic Provider, No Assigned Pcp, PCP - General 07/09/23 documented as of this encounter
--- OUTSIDE RECORDS SUMMARY | 2024-11-14 07:31 | XMS_ITS | Encounter Summary ---
Author Organization [facility] Address [address] [place] [address] Phone Care Team Providers Care Picking Supervisor Name Role Phone Emigdio Roland DO Primary Care Provider [phone] Generic Provider, No Assigned Pcp MD Primary Car e Provider Unavailable Encounter Details Date Type Department Care Team (Late st Contact Info) Description 09/05/2021 Orders Only [facility] [address] [place] [address] Conversion, Onbase Social History Tobacco Use Types [...] r Schedule OUTSIDE LAB SCAN Lab Ordered: 09/05/2021 documented as of this encounter Visit Diagnoses Not on filedocumented in this encounter Care Teams Picking Supervisor Relationship Specialty Start Date End Date Emigdio Roland DO PCP - General 11/24/18 07/08/23 Generic Provider, No Assigned Pcp, PCP - General 07/09/23 documented as of this encounter
--- OUTSIDE RECORDS SUMMARY | 2024-11-14 07:31 | XMS_ITS | Encounter Summary ---
Author Organization [facility] Address [address] [place] [address] Phone Care Team Providers Care Revenue Liaison Name Role Phone Emigdio Roland DO Primary Care Provider [phone] Generic Provider, No Assigned Pcp MD Primary Car e Provider Unavailable Encounter Details Date Type Department Care Team (Late st Contact Info) Description 01/10/2021 Orders Only [facility] [address] [place] [address] Conversion, Onbase Social History Tobacco Use Types [...] r Schedule OUTSIDE LAB SCAN Lab Ordered: 01/10/2021 documented as of this encounter Visit Diagnoses Not on filedocumented in this encounter Care Teams Revenue Liaison Relationship Specialty Start Date End Date Emigdio Roland DO PCP - General 11/24/18 07/08/23 Generic Provider, No Assigned Pcp, PCP - General 07/09/23 documented as of this encounter
--- OUTSIDE RECORDS SUMMARY | 2024-11-14 07:31 | XMS_ITS | Encounter Summary ---
Author Organization [facility] Address [address] [place] [address] Care Team Providers Care Rn Clinical Name Role Phone Tyson Bhatti MD Primary Care Provider [phone] Mike Pretty DO Unavailable [phone] Encounter Details Date Type Department Care Team ([facility] Contact Info) Description 11/10/2024 External Result Encounter [facility] External Department Unsolicited Isabelle Rucker, FAMILY SERVICES SPECIALIST 112 [facility] 110 [place], [place] [id number] Social History Tobacco Use Types Packs/Day Years [...] Upcoming Encounters Date Type Department Care Team ([facility] Contact Info) Description 11/28/2024 3:30 PM EDT Office Visit [facility] 112 [facility] 110 [place] [address] Tyson Bhatti MD 112 [facility] [address] [place], [place] [id number] documented as of this encounter Procedures Procedure Name Priority Date/Time Associated Diagnosis Comments XR KNEE 4+ VIEWS LEFT 11/10/2024 6:03 PM EDT documented in this encounter Results * XR knee 4+ views left [...] signed by Vitor Church DO in OV> 11/10/24 180 Narrative 11/10/2024 6:07 PM EDT [facility] [place] [id number] XRay Report Signed Patient: Emigdio Jeong III MR#: [id number] : 1940 Acct:[id number] Age/Sex: 84 / M ADM Date: 11/10/24 Loc: XDCLY Room: Type: [facility] Attending Dr: Isablele Rucker FAMILY SERVICES SPECIALIST-C Copies to: KAREN De La Cruz Ordering [...] Procedure Note Radiology, Radiologist, MD - 11/10/2024 [facility] [place] [id number] XRay Report Signed Patient: Emigdio Jeong IIIMR#: [id number] : 1940cct:[id number] Age/Sex: 84 / MADM Date: 11/10/24 Loc: XDCLY Room:Type: [facility] Attending Dr: Isabelle Rucker FAMILY SERVICES SPECIALIST-C Copies to: KAREN De La Cruz Ordering [...] Church M.D. 11/10/2024 6:04 PM Dictation [facility] Transcribed By: [facility] 11/10/241803 Dictated By: Vitor Church DO 11/10/24 180 Signed By: <Electronically signed by Vitor Church DO in OV> 11/10/24 1804 us Isabelle Rucker FAMILY SERVICES SPECIALIST IMG XR PROCEDURES Final Result documented in this encounter Visit Diagnoses Not on filedocumented in this encounter Care Teams Rn Clinical Relationship Specialty Start Date End Date Tyson Bhatti MD [address] [facility] [address] [place] [address] PCP - General Internal Medicine 06/03/24 Mike Pretty DO [address] [facility] [address] [place] [address] Referring Physician Neurology 10/03/24 documented as of this encounter
--- OUTSIDE RECORDS SUMMARY | 2024-11-14 07:31 | XMS_ITS | Encounter Summary ---
Author Organization [facility] Address [address] [place] [address] Phone Care Team Providers Care Lotteries Agent Name Role Phone Emigdio Roland DO Primary Care Provider [phone] Generic Provider, No Assigned Pcp MD Primary Car e Provider Unavailable Encounter Details Date Type Department Care Team (Late st Contact Info) Description 02/07/2021 Orders Only [facility] [address] [place] [address] Conversion, Onbase Social History Tobacco Use Types [...] r Schedule OUTSIDE LAB SCAN Lab Ordered: 02/07/2021 documented as of this encounter Visit Diagnoses Not on filedocumented in this encounter Care Teams Lotteries Agent Relationship Specialty Start Date End Date Emigdio Roland DO PCP - General 11/24/18 07/08/23 Generic Provider, No Assigned Pcp, PCP - General 07/09/23 documented as of this encounter
--- OUTSIDE RECORDS SUMMARY | 2024-11-14 07:31 | XMS_ITS | Encounter Summary ---
Author Organization [facility] Address [address] [place] [address] Phone Care Team Providers Care Special Collections Librarian Name Role Phone Emigdio Roland DO Primary Care Provider [phone] Generic Provider, No Assigned Pcp MD Primary Car e Provider Unavailable Encounter Details Date Type Department Care Team (Late st Contact Info) Description 09/19/2021 Orders Only [facility] LE[facility] [address] [place] [address] Conversion, Onbase Social History Tobacco Use Types [...] r Schedule OUTSIDE LAB SCAN Lab Ordered: 09/19/2021 documented as of this encounter Visit Diagnoses Not on filedocumented in this encounter Care Teams Special Collections Librarian Relationship Specialty Start Date End Date Emigdio Roland DO PCP - General 11/24/18 07/08/23 Generic Provider, No Assigned Pcp, PCP - General 07/09/23 documented as of this encounter
--- OUTSIDE RECORDS SUMMARY | 2024-11-14 07:31 | XMS_ITS | Encounter Summary ---
Author Organization [facility] Address [address] [place] [address] Phone Care Team Providers Care Aluminum Boat Inspector Name Role Phone Emigdio Roland DO Primary Care Provider [phone] Generic Provider, No Assigned Pcp MD Primary Car e Provider Unavailable Encounter Details Date Type Department Care Team (Late st Contact Info) Description 11/15/[address] [facility] [address] [place] [address] Conversion, Onbase Social History Tobacco Use Types [...] r Schedule OUTSIDE LAB SCAN Lab Ordered: 11/15/2020 documented as of this encounter Visit Diagnoses Not on filedocumented in this encounter Care Teams Aluminum Boat Inspector Relationship Specialty Start Date End Date Emigdio Roland DO PCP - General 11/24/18 07/08/23 Generic Provider, No Assigned Pcp, PCP - General 07/09/23 documented as of this encounter
--- OUTSIDE RECORDS SUMMARY | 2024-11-14 07:31 | XMS_ITS | Encounter Summary ---
Author Organization [facility] Address [address] [facility] [place] [place] [address] Care Team Providers Care [address] Scientist Name Role Phone Tyson Bhatti MD Primary Care Provider [phone] SukhwinderKishanfannysandrita DO Unavailable [phone] Encounter Details Date Type Department Care Team ([facility] Contact Info) Description 08/15/2024 Abstract [facility] [address] [facility] 110 [place] [address] Tyson Bhatti MD 112 [facility] 110 [place] [address] Social History Tobacco Use Types Packs/Day Years Used Date Smoking Tobacco: Former Cigarettes Smokeless Tobacco: Never Alcohol Use Standard Drinks/Week Comments Defer 0 (1 standard drink = 0.6 oz pur e alcohol) PHQ-2 Answer Date Recorded Patient Health Questionnaire-2 Score 0 08/01/2024 Sex and Gender Information Value Date Recorded Sex Assigned at Not on file Legal Sex Male 8:34 PM EDT Gender Identity Not on file Sexual Orientation Not on file documented as of this encounter Plan of Treatment Upcoming Encounters Date Type Department Care Team ([facility] Contact Info) Description 11/28/2024 3:30 PM EDT Office Visit [facility] [address] [facility] 110 [place] [address] Tyson Bhatti MD 112 [facility] 110 [place] [address] documented as of this encounter Visit Diagnoses Not on filedocumented in this encounter Care Teams Rd Scientist Relationship Specialty Start Date End Date Tyson Bhatti MD [address] [place] [facility] 110 [place] [address] PCP - General Internal Medicine 06/03/24 Mike Pretty DO [address] [place] [address] [place] [address] Referring Physician Neurology 10/03/24 documented as of this encounter
--- OUTSIDE RECORDS SUMMARY | 2024-11-14 07:31 | XMS_ITS | Encounter Summary ---
Author Organization [facility] Address [address] [place] [address] Phone Care Team Providers Care Market Gardener Name Role Phone Emigdio Roland DO Primary Care Provider [phone] Generic Provider, No Assigned Pcp MD Primary Car e Provider Unavailable Encounter Details Date Type Department Care Team (Late st Contact Info) Description 04/04/2021 Orders Only [facility] [address] [place] [address] Conversion, Onbase Social History Tobacco Use Types [...] r Schedule OUTSIDE LAB SCAN Lab Ordered: 04/04/2021 documented as of this encounter Visit Diagnoses Not on filedocumented in this encounter Care Teams Market Gardener Relationship Specialty Start Date End Date Emigdio Roland DO PCP - General 11/24/18 07/08/23 Generic Provider, No Assigned Pcp, PCP - General 07/09/23 documented as of this encounter
--- OUTSIDE RECORDS SUMMARY | 2024-11-14 07:31 | XMS_ITS | Encounter Summary ---
Author Organization [facility] Address [address] [place] [address] Phone Care Team Providers Care Pest Control Worker Name Role Phone Generic Provider, No Assigned Pcp MD Primary Car e Provider Unavailable Encounter Details Date Type Department Care Team (Late st Contact Info) Description 12/21/2023 Scanned Document [facility] [address] [place] [address] Scanning, Generic Provider Social History Tobacco Use Types Packs/Day Years [...] as of this encounter Plan of Treatment Not on file documented as of this encounter Procedures Procedure Name Priority Date/Time Associated Diagnosis Comments ECHOCARDIOGRAM 12/21/2023 documented in this encounter Results * Echocardiogram (12/21/2023) Narrative 12/21/2023 Ordered by an unspecified provider. us Generic Provider Scanning CV ECHO PROCEDURES Fin al Result documented in this encounter Visit Diagnoses Not on filedocumented in this encounter Additional Health Concerns Assessment Noted Time A fall risk assessment has been complete d for the patient 06/19/2023 1:20 PM EST documented as of this encounter Care Teams Pest Control Worker Relationship Specialty Start Date End Date Generic Provider, No Assigned Pcp, PCP - General 07/09/23 documented as of this encounter
--- OUTSIDE RECORDS SUMMARY | 2024-11-14 07:31 | XMS_ITS | Encounter Summary ---
Author Organization [facility] Address [address] [place] [address] Phone Care Team Providers Care Relations Liaison Name Role Phone Emigdio Roland DO Primary Care Provider [phone] Generic Provider, No Assigned Pcp MD Primary Car e Provider Unavailable Encounter Details Date Type Department Care Team (Late st Contact Info) Description 11/07/2021 Orders Only [facility] [address] [place] [address] Conversion, Onbase Social History Tobacco Use Types [...] r Schedule OUTSIDE LAB SCAN Lab Ordered: 11/07/2021 documented as of this encounter Visit Diagnoses Not on filedocumented in this encounter Care Teams Relations Liaison Relationship Specialty Start Date End Date Emigdio Roland DO PCP - General 11/24/18 07/08/23 Generic Provider, No Assigned Pcp, PCP - General 07/09/23 documented as of this encounter
--- OUTSIDE RECORDS SUMMARY | 2024-11-14 07:31 | XMS_ITS | Encounter Summary ---
Author Organization [facility] Address [address] [facility] [place] [place] [address] Care Team Providers Care Tower Helper Name Role Phone Tyson Bhatti MD Primary Care Provider [phone] SukhwinderKishanfannysandrita DO Unavailable [phone] Encounter Details Date Type Department Care Team ([facility] Contact Info) Description 08/02/2024 Abstract [facility] CI FM 112 [facility] 110 [place] [address] Tyson Bhatti MD [address] [address] Social History Tobacco Use Types Packs/Day Years [...] Upcoming Encounters Date Type Department Care Team ([facility] Contact Info) Description 11/28/2024 3:30 PM EDT Office Visit [facility] 112 [facility] 110 [place] [address] Tyson Bhatti MD 112 [facility] 110 [place] [address] documented as of this encounter Visit Diagnoses Not on filedocumented in this encounter Care Teams Tower Helper Relationship Specialty Start Date End Date Tyson Bhatti MD 112 [place] [facility] 110 [place] [address] PCP - General Internal Medicine 06/03/24 Mike Pretty DO [address] [place] [address] [place] [address] Referring Physician Neurology 10/03/24 documented as of this encounter
--- OUTSIDE RECORDS SUMMARY | 2024-11-14 07:31 | XMS_ITS | Encounter Summary ---
Author Organization [facility] Address [address] [place] [address] Care Team Providers Care Yarn Weight And Strength Tester Name Role Phone Tyson Bhatti MD Primary Care Provider [phone] SukhwinderKishanfannysandrita DO Unavailable [phone] Encounter Details Date Type Department Care Team ([facility] Contact Info) Description 11/08/2024 Abstract [facility] FM 112 [facility] 110 [place] [address] Tyson Bhatti MD 112 [facility] 110 [place] [address] Social History Tobacco Use Types Packs/Day Years [...] Upcoming Encounters Date Type Department Care Team ([facility] Contact Info) Description 11/28/2024 3:30 PM EDT Office Visit [facility] 112 [facility] 110 [place] [address] Tyson Bhatti MD 112 [facility] 110 [place] [address] documented as of this encounter Visit Diagnoses Not on filedocumented in this encounter Care Teams Yarn Weight And Strength Tester Relationship Specialty Start Date End Date Tyson Bahtti MD 112 [place] [facility] 110 [place] [address] PCP - General Internal Medicine 06/03/24 Mike Pretty DO [address] [place] [address] [place] [address] Referring Physician Neurology 10/03/24 documented as of this encounter
--- OUTSIDE RECORDS SUMMARY | 2024-11-14 07:31 | XMS_ITS | Encounter Summary ---
Author Organization [facility] Address [address] [place] [address] Phone Care Team Providers Care Atomic Physics Teacher Name Role Phone Generic Provider, No Assigned Pcp MD Primary Car e Provider Unavailable Encounter Details Date Type Department Care Team (Late st Contact Info) Description 02/10/[address] [facility] [address] [place] [address] Scanning, Generic Provider Social History Tobacco Use [...] Procedure Name Priority Date/Time Associated Diagnosis Comments OUTSIDE LAB SCAN 02/10/2024 documented in this encounter Results * OUTSIDE LAB SCAN (02/10/2024) Narrative 02/10/2024 Ordered by an unspecified provider. us Generic Provider Scanning OUTSIDE SCAN Final Result documented in this encounter Visit Diagnoses Not on filedocumented in this encounter Additional Health Concerns Assessment Noted Time A fall risk assessment has been complete d for the patient 06/19/2023 1:20 PM EST documented as of this encounter Care Teams Atomic Physics Teacher Relationship Specialty Start Date End Date Generic Provider, No Assigned Pcp, PCP - General 07/09/23 documented as of this encounter
--- OUTSIDE RECORDS SUMMARY | 2024-11-14 07:31 | XMS_ITS | Encounter Summary ---
Author Organization [facility] Address [address] [place] [address] Phone Care Team Providers Care Straddle Bug Operator Name Role Phone Emigdio Roland DO Primary Care Provider [phone] Generic Provider, No Assigned Pcp MD Primary Car e Provider Unavailable Encounter Details Date Type Department Care Team (Late st Contact Info) Description 10/24/2021 Orders Only [facility] [address] [place] [address] Conversion, Onbase Social History Tobacco Use Types [...] r Schedule OUTSIDE LAB SCAN Lab Ordered: 10/24/2021 documented as of this encounter Visit Diagnoses Not on filedocumented in this encounter Care Teams Straddle Bug Operator Relationship Specialty Start Date End Date Emigdio Roland DO PCP - General 11/24/18 07/08/23 Generic Provider, No Assigned Pcp, PCP - General 07/09/23 documented as of this encounter
--- OUTSIDE RECORDS SUMMARY | 2024-11-14 07:31 | XMS_ITS | Encounter Summary ---
Author Organization [facility] Healthcare Address [address] [place] [address] Care Team Providers Care Construction Job Cost Estimator Name Role Phone Tyson Bhatti MD Primary Care Provider [phone] Mike Pretty DO Unavailable [phone] Encounter Details Date Type Department Care Team (Late st Contact Info) Description 11/03/2024 Patient Outreach [facility] [address] [facility] [facility] [place] [id number] Darline Jones RN Social History Tobacco Use Types Packs/Day Years [...] on file documented as of this encounter Progress Notes * Darline Jones RN - 11/03/2024 1:36 PM EDT Images from the original note were not included. Flowsheet Row Patient Outreach from 11/03/2024 in [facility] with Darline Jones RN Hospital Information ED, Hospital or Long-Term Facility Discharge? ED Patient has been contacted within 2 days of being seen in the ED Yes Diagnosis fall, contusion of knee, closed head injury Discharge Date 11/02/24 Discharged To: Home Setting [[facility]isted living] [facility]charge [facility] Admission Date 11/02/24 Medications Discharge medications reviewed and reconciled from hospital? Yes Is the patient having any side effects they believe may be caused by any medication additions or changes? No Does the patient have all medications ordered at discharge? Not applicable Prescription Comments no new medications Appointments Does the patient have a primary care provider? Yes Nursing Interventions Patient declined follow up appointment w/ PCP Self Management Does patient have home health? no Patient Teaching Does the patient have access to their discharge instructions? Yes Nursing Interventions Reviewed instructions with patient What is the patient's perception of their health status since discharge? Improving [per pt's dtr, Isabelle, pt doing okay. complains he is sore but no major complaints.] Wrap Up Wrap Up Additional Comments patient had unwitnessed fall at assisted living. pt was found unconscious on floor and taken by EMS to [facility]. pt has CT head, CT neck and knee xrays done with all negative.pt did become alert and oriented per normal self as pt has dementia and is somewhat confused. Reports states pt had returned to baseline. Pt was DC back to Assisted living. Spoke with pt's dtr Isabelle and she states pt doing okay and declines for appt at this time. Remind her of appt 11/[address] Bhattifor pt. documented in this encounter Plan of Treatment Upcoming Encounters Date Type Department Care Team (Late st Contact Info) Description 11/28/2024 3:30 PM EDT Office Visit [facility] [address] [facility] [address] [place] [address] Tyson Bhatti MD 112 [facility] [address] [place] [address] documented as of this encounter Visit Diagnoses Diagnosis Fall, initial encounter- Primary Closed head injury, initial encounter documented in this encounter Care Teams Construction Job Cost Estimator Relationship Specialty Start Date End Date Tyson Bhatti MD 112 [facility] [address] [place] [address] PCP - General Internal Medicine 06/03/24 Mike Pretty DO 112 [facility] [address] [place] [address] Referring Physician Neurology 10/03/24 documented as of this encounter
--- OUTSIDE RECORDS SUMMARY | 2024-11-14 07:31 | XMS_ITS | Encounter Summary ---
Author Organization [facility] Address [address] [facility] [place] [address] Care Team Providers Care Casting Assistant Name Role Phone Tyson Bhatti MD Primary Care Provider [phone] SukhwinderMike DO Unavailable [phone] Encounter Details Date Type Department Care Team ([facility] Contact Info) Description 09/07/2024 Abstract [facility] [address] [facility] [address] [place] [address] Tyson Bhatti MD 112 [facility] [address] [place] [address] Social History Tobacco Use Types Packs/Day Years [...] Upcoming Encounters Date Type Department Care Team ([facility] Contact Info) Description 11/28/2024 3:30 PM EDT Office Visit [facility] [address] [facility] [address] [place] [phone] Tyson Bhatti MD 112 [facility] [address] [place] [address] documented as of this encounter Visit Diagnoses Not on filedocumented in this encounter Care Teams Casting Assistant Relationship Specialty Start Date End Date Tyson Bhatti MD 112 [facility] [address] [place] [address] PCP - General Internal Medicine 06/03/24 Mike Pretty DO [address] [place] [address] [place] [address] Referring Physician Neurology 10/03/24 documented as of this encounter
--- OUTSIDE RECORDS SUMMARY | 2024-11-14 07:31 | XMS_ITS | Encounter Summary ---
Author Organization [facility] Address [address] [place] [address] Phone Care Team Providers Care Deputy Clerk Of Court Name Role Phone Emigdio Roland DO Primary Care Provider Generic Provider, No Assigned Pcp MD Primary Car e Provider Unavailable Encounter Details Date Type Department Care Team (Late st Contact Info) Description 12/13/2020 Orders Only [facility] [address] [place] [address] Conversion, Onbase Social History Tobacco Use Types [...] r Schedule OUTSIDE LAB SCAN Lab Ordered: 12/13/2020 documented as of this encounter Visit Diagnoses Not on filedocumented in this encounter Care Teams Deputy Clerk Of Court Relationship Specialty Start Date End Date Emigdio Roland DO PCP - General 11/24/18 07/08/23 Generic Provider, No Assigned Pcp, PCP - General 07/09/23 documented as of this encounter
--- OUTSIDE RECORDS SUMMARY | 2024-11-14 07:31 | XMS_ITS | Encounter Summary ---
Author Organization [facility] Address [address] [place] [address] Phone Care Team Providers Care Instant Printer Operator Name Role Phone Emigdio Roland DO Primary Care Provider [phone] Generic Provider, No Assigned Pcp MD Primary Car e Provider Unavailable Encounter Details Date Type Department Care Team (Late st Contact Info) Description 10/03/2021 Orders Only [facility] [address] [place] [address] Conversion, Onbase Social History Tobacco Use Types [...] r Schedule OUTSIDE LAB SCAN Lab Ordered: 10/03/2021 documented as of this encounter Visit Diagnoses Not on filedocumented in this encounter Care Teams Instant Printer Operator Relationship Specialty Start Date End Date Emigdio Roland DO PCP - General 11/24/18 07/08/23 Generic Provider, No Assigned Pcp, PCP - General 07/09/23 documented as of this encounter
--- OUTSIDE RECORDS SUMMARY | 2024-11-14 07:31 | XMS_ITS | Encounter Summary ---
Author Organization [facility] Address [address] [place] [address] Phone Care Team Providers Care Client Renewal Specialist Name Role Phone Emigdio Roland DO Primary Care Provider [phone] Generic Provider, No Assigned Pcp MD Primary Car e Provider Unavailable Encounter Details Date Type Department Care Team (Late st Contact Info) Description 05/06/2021 Orders Only [facility] [address] [place] [address] Conversion, Onbase Social History Tobacco Use Types [...] r Schedule OUTSIDE LAB SCAN Lab Ordered: 05/06/2021 documented as of this encounter Visit Diagnoses Not on filedocumented in this encounter Care Teams Client Renewal Specialist Relationship Specialty Start Date End Date Emigdio Roland DO PCP - General 11/24/18 07/08/23 Generic Provider, No Assigned Pcp, PCP - General 07/09/23 documented as of this encounter
--- OUTSIDE RECORDS SUMMARY | 2024-11-14 07:44 | XMS_ITS | CCD ---
Author Organization [facility] Team Providers Care [employer] Manufacturing Technician Name Role Phone GAO, BEJARANO Unavailable Unavailable HOUSE, EMIGDIO Unavailable Unavailable GAO, BEJARANO Unavailable Unavailable HOUSE, EMIGDIO Unavailable Unavailable GAO, BEJARANO Unavailable Unavailable HOUSE, EMIGDIO Unavailable Unavailable GAO, BEJARANO Unavailable Unavailable HOUSE, EMIGDIO Unavailable Unavailable GAO, DARCI Unavailable Unavailable RICH, EMIGDIO Unavailable Unavailable Emigdio Villanueva Unavailable Unavailable Unavailable Yelena Puri Unavailable Dr. Emigdio Villanueva Primary Care Unava ilable Fletcher Ziegler II Referring Unavailable Billy ROSARIO, Fletcher Attending Unavailable Dusty Lucero Unavailable Rosalia Peres Unavailable RICH, DR HOUSE Admitting Unavailable NOCONA, DR HOUSE Attending Unavailable RICH, DR HOUSE Primary Care Unavailable RICH, DR HOUSE Consulting Unavailable Mishel Street Unavailable Princess Anne Emigdio DURAN Primary Care Provider DO Emigdio Villanueva Primary Care Provider [phone] MD Fletcher Ziegler Attending Provider Generic Provider , No Assigned Pcp Primary Car e Provider Unavailable FLETCHER ZIEGLER Referring Unavailable DO Emigdio Villanueva Primary Care Provider DO Malik Perez Emergency Provider Unavai MD Marino Douglass Admit Provider [phone] MD Marino Acuña Attending Provider DO Felipe Lopez Other Provider MD Nadiya Hagan Attending Provider HOUSE, EMIGDIO P Primary Care Unavailable HOUSE, DO EMIGDIO P Attending Unavailable HOUSE, DO EMIGDIO P Admitting Unavailable HOUSE, EMIGDIO P Primary Care Unavailable HOUSE, DO EMIGDIO P Attending Unavailable HOUSE, DO EMIGDIO P Admitting Unavailable HOUSE, EMIGDIO P Primary Care Unavailable HOUSE, DO EMIGDIO P Attending Unavailable Emigdio Villanueva MD Primary Care Provider FLETCHER ZIEGLER Attending Unavailable RICH, EMIGDIO Lazo Primary Care Unavailable Tyson Bhatti MD Primary Care Provider Kacy Pretty DO Unavailable TYSON BHATTI Attending Unavailable KUSUM SAUCEDO Attending Unavailable TYSON BHATTI Attending Unavailable TYSON BHATTI Attending Unavailable KACY PRETTY Attending Unavailable TYSON BHATTI Attending Unavailable CARLEEN GLYNN Attending Unavailable SUKHWINDER, KACY Attending Unavailable EMIGDIO VILLANUEVA Referring Unavailable KACY PRETTY Attending Unavailable TYSON BHATTI Attending Unavailable TYSON BHATTI Attending Unavailable TYOSN BHATTI Attending Unavailable TYSON BHATTI Attending Unavailable KACY PRETTY Attending Unavailable TYSON BHATTI Attending Unavailable AYESHA LIVINGSTON Attending Unavailable Josue Leigh DO Emergency Provider Tyson Bhatti II Primary Care Provider Kacy Pretty DO Unavailable Isabelle Rucker Admitting Unavailable Isabelle Rucker Attending Unavailable Tyson Bhatti Primary Care Unavailable Tyson Bhatti Primary Care Unavailable Josue Leigh Admitting Unavailable Josue Leigh Attending Unavailable Felipe Lopez Consulting Unavailable Emigdio Villanueva Primary Care Unavailable Marino Acuña Admitting Unavailable Nadiya Hagan Attending Unavailable Isabelle Walker Attending Provider Allergies Allergy Classification Reported Allergen(s) Allergy Type Date of Onset Reaction(s) Facility (1 source) Aminolevulinic Acid Drug Allergy [address] [facility] Repository Medications Current Medications Medication Drug Class(es) Dates Sig (Normalized) Sig (Original) aspirin 81 mg delayed release oral tablet (20 sources) Platelet Aggregation Inhibitor, Nonsteroidal Anti-inflammatory Drug Start: 12-22-2023 End: 12-27-2024 take 1 tablet by mouth once daily Aspirin 81 mg Tablet,Delayed Release (Dr/Ec) Active 81 MG PO Daily 0 December 22, 2023 12:00am Start: 04-07-2022 End: 06-19-2023 take 1 tablet by mouth every week aspirin 81 mg EC tablet Take 1 tablet (81 mg) by mouth per week. 0 04/07/2022 06/19/2023 Discontinued (Therapy completed) azithromycin 250 mg oral tablet (2 sources) Macrolide Antimicrobial Start: 06-21-2024 End: 06-26-2024 take 2 tablets by mouth once daily, then take 1 tablet by mouth once daily azithromycin (Zithromax) 250 MG tablet Indications: Acute non-recurrent pansinusitis Take 2 tablets (500 mg) by mouth Daily for 1 day, THEN 1 tablet (250 mg) Daily for 4 days. 6 tablet 06/21/2024 06/26/2024 Active carbamide peroxide 65 mg/ml otic solution (2 sources) Start: 06-21-2024 End: 06-25-2024 carbamide peroxide (Debrox) 6.5 % otic solution Indications: Cerumen debris on tympanic membrane of both ears Administer 5-10 drops into affected ear(s) in the morning and 5-10 drops before bedtime. Do all this for 4 days. 15 mL 06/21/2024 06/25/2024 Active hydroCHLOROthiazide 12.5 mg / losartan potassium 50 mg oral tablet (20 sources) Thiazide Diuretic, Angiotensin 2 Receptor Salvador Start: 02-17-2024 End: 02-16-2025 take 1 tablet by mouth once daily losartan-hydroCHL OROthiazide (Hyzaar) 50-12.5 MG tablet Indications: LVH (left ventricular hypertrophy) , Localized edema Take 1 tablet by mouth Daily 90 tablet 3 02/17/2024 02/16/2025 Active Iron (20 sources) Start: 07-12-2018 take 1 tablet by mouth every other day Iron (Ferrous Sulfate) 325 MG 1 tablet Orally EVERY OTHER DAY for 30 days Jul, Active losartan potassium 50 mg oral tablet (6 sources) Angiotensin 2 Receptor Salvador Start: 12-22-2023 End: 02-17-2024 take 1 tablet by mouth once daily Losartan 50 mg Tablet Active 50 MG PO Daily 0 December 22, 2023 12:00am omeprazole 20 mg delayed release oral tablet (20 sources) Proton Pump Inhibitor Start: 12-22-2023 take 1 tablet by mouth once daily Omeprazole 20 MG tablet delayed-release Take 20 mg by mouth Daily 12/22/2023 Active Start: 12-22-2023 take 1 capsule by [facility] once daily Omeprazole 20 mg capsule,delayed release(DR/EC) Active 20 MG PO Daily December 22, 2023 12:00am Start: 07-12-2018 take 1 capsule by [facility] every twenty-four hours Omeprazole 20 MG 1 capsule Orally Once a day for 30 days Jul, Active Start: 06-10-2018 End: 12-17-2023 take 2 capsules by mouth once daily Omeprazole 20 mg Capsule,Delayed Release(Dr/Ec) Discontinued 40 MG PO Daily June 10, 2018 1:00am December 17, 2023 3:28pm Start: 06-10-2018 End: 12-17-2023 take 40 mg by mouth once daily Omeprazole Discontinued 40 MG PO Daily June 10, 2018 1:00am December 17, 2023 3:28pm traZODone hydrochloride 50 mg oral tablet (20 sources) Serotonin Reuptake Inhibitor Start: 01-18-2024 End: 01-12-2025 take 1 tablet by mouth at bedtime traZODone (Desyrel) 50 MG tablet Indications: 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) Take 1 tablet (50 mg) by mouth at bedtime 30 tablet 11 01/18/2024 01/12/2025 Active vitamin b12 1 mg oral capsule (20 sources) Vitamin B12 Start: 02-10-2024 take 1 capsule by mouth once daily Cyanocobalamin (Vitamin B-12) 1,000 mcg capsule Active 1000 MCG PO Daily February 10, 2024 12:00am Start: 12-22-2023 End: 02-10-2024 take 1 tablet by mouth once daily Cyanocobalamin (Vitamin B-12) 500 mcg tablet Discontinued 500 MCG PO Daily December 22, 2023 12:00am February 10, 2024 9:55am Start: 12-22-2023 End: 02-10-2024 take 500 ug by mouth once daily Cyanocobalamin (Vitamin B-12) Discontinued 500 MCG PO Daily December 22, 2023 12:00am February 10, 2024 9:55am Start: 12-22-2023 take 500 ug by mouth once daily Cyanocobalamin (Vitamin B-12) Active 500 MCG PO Daily December 22, 2023 12:00am take 1 tablet by naomi th once daily cyanocobalamin (Vitamin B-12) 1000 MCG tablet Take 1,000 mcg by mouth Daily Active Vitamin C 500 MG (20 sources) Vitamin C 500 MG as directed Orally Active warfarin sodium 4 mg oral tablet (20 sources) Vitamin K Antagonist Start: 06-03-2024 take 1 tablet by mouth once daily warfarin (Coumadin) 4 MG tablet Indications: Longstanding persistent atrial fibrillation (CMS/HCC) Take 1 tablet (4 mg) by mouth 1 (one) time each day Take as directed per After Visit Summary.- dose changing weekly per lab results 90 tablet 11 06/03/2024 Active Start: 03-02-2024 take 1 tablet by naomi th once daily warfarin (Coumadin) 4 MG tablet Indications: Longstanding persistent atrial fibrillation (CMS/HCC) Take 1 tablet (4 mg) by mouth 1 (one) time each day Take as directed per After Visit Summary.- dose changing weekly per lab results 90 tablet 11 03/02/2024 Active Start: 12-17-2023 End: 02-10-2024 take 3 tablets by mouth six times weekly Warfarin (Jantoven) 2 mg tablet Discontinued 6 MG PO 6 TIMES PER WEEK December 17, 2023 12:00am February 10, 2024 9:55am thursday,thursday,,thursday, thursday and thursday Start: 07-29-2023 End: 02-10-2024 Warfarin 2 mg tablet Active 2 MG PO As Directed February 10, 2024 12:00am [place] [facility] [place]10[place]24 - 4mg on Mondays & 6mg on ,,,,Fr,Sa Start: 07-29-2023 End: 02-10-2024 take 4 mg by mouth every week Warfarin Discontinued 4 MG PO every week July 29, 2023 1:00am February 10, 2024 9:55am mondays Start: 07-29-2023 take 1 mg by mouth once daily Warfarin Active MG PO Daily July 29, 2023 1:00am FreeTextSig: as directed orally once daily; Note: Source Status: Taking; Provider: Student 23 Start: 11-07-2020 take 3 tablets by mo uth three times weekly, then take 2 tablets by mouth once warfarin (Coumadin) 2 mg tablet Take 3 tablets (6 mg) by mouth 3 times a week. ON Thursday AND THURSDAY. TAKE 2 TABLETS (4 MG) ORALLY ALL OTHER DAYS OR DIRECTED. [place] [facility] 0 11/07/2020 Active Start: 06-07-2018 End: 06-10-2018 take 1 tablet by mouth once Warfarin 5 mg tablet Disco ntinued 5 MG PO every Thursday, , Thursday, and Thursday June 07, 2018 1:00am June 10, 2018 3:04pm Start: 06-07-2018 End: 06-10-2018 Warfarin 7.5 mg tablet Disco ntinued 7.5 MG PO As Directed June 07, 2018 1:00am June 10, 2018 3:04pm take 1 tablet by naomi once daily warfarin (Coumadin) 4 MG tablet Take 4 mg by mouth 1 (one) time each day Take as directed per After Visit Summary. Active Warfarin 2mg 2 m g as directed orally once daily Active Completed/Discontinued Medications Medication Drug Class(es) Dates Sig (Normalized) Sig (Original) [id number] 200 actuat albuterol 0.09 mg/actuat metered dose inhaler (9 sources) beta2-Adrenergic Agonist Start: 07-29-2023 End: 12-17-2023 take 1 puff(s) by inhalation four times daily as needed for wheezing Albuterol Sulfate 90 mcg/actuation HFA aerosol inhaler Discontinued 2 PUFF INHALATION Four times daily as needed for shortness of breath or wheezing 8.5 July 29, 2023 1:00am December 17, 2023 3:27pm ascorbic acid 500 mg oral capsule (13 sources) Vitamin C Start: 07-29-2023 End: 12-17-2023 Ascorbic Acid (Vitamin C) 500 mg capsule Discontinued CAP PO As Directed July 29, 2023 1:00am December 17, 2023 3:27pm FreeTextSig: as directed Orally; Note: Source Status: Taking; Provider: Yenifer Florentino ( ) Start: 07-29-2023 End: 12-17-2023 Ascorbic Acid (Vitamin C) Di scontinued CAP PO As Directed July 29, 2023 1:00am December 17, 2023 3:27pm FreeTextSig: as directed Orally; Note: Source Status: Taking; Provider: Yenifer Florentino ( ) Vitamin C 500 MG as directed Orally Active atorvastatin 20 mg oral tablet (20 sources) HMG-CoA Reductase Inhibitor Start: 02-28-2020 End: 06-18-2024 take 1 tablet by mouth once daily Atorvastatin 20 mg tablet Discontinued 1 TAB PO Daily July 29, 2023 1:00am December 17, 2023 3:27pm FreeTextSi tablet Orally Once a day; Note: Source Status: Taking; Provider: Yenifer Florentino ( ) doxycycline hyclate 100 mg oral capsule (9 sources) Tetracycline-cla ss Drug Start: 07-29-2023 End: 12-17-2023 take 1 capsule by mouth twice daily Doxycycline Hyclate 100 mg capsule Discontinued 100 MG PO Twice daily 27 03July 29, 2023 1:00am December 17, 2023 3:27pm ferrous sulfate 325 mg oral tablet (12 sources) Start: 08-06-2020 take 1 tablet by mouth every other day Ferrous Sulfate 325 (65 Fe) MG Oral Tablet TAKE ONE TABLET BY MOUTH EVERY OTHER DAY Quantity: 30 Refills: 0 Ordered: 18-Jan-2021 DO Start : 06-Aug-2020 Active Start: 06-10-2018 End: 12-17-2023 take 1 tablet by mouth twice daily Ferrous Sulfate 324 mg (65 mg iron) Tablet,Delayed Release (Dr/Ec) Discontinued 324 MG PO Twice daily 60 June 10, 2018 1:00am December 17, 2023 3:28pm methylPREDNISolone 4 mg oral tablet (9 sources) Corticosteroid Start: 07-29-2023 End: 12-17-2023 take 1 tablet by mouth once Methylprednisolone (Medrol (Aiden)) 4 mg tablets,dose pack Discontinued 0 PO per package directions July 29, 2023 1:00am December 17, 2023 3:28pm PO PER PKG DIR for 6 days niacinamide 500 mg oral tablet (20 sources) Start: 07-29-2023 End: 12-17-2023 take 1 tablet by mouth once daily Niacinamide 500 mg tablet Discontinued 1 TAB PO Daily July 29, 2023 1:00am December 17, 2023 3:28pm FreeTextSi tablet Orally Once a day; Note: Source Status: Taking; Provider: Yenifer Florentino ( ) take 1 tablet by naomi th every twenty-four hours Niacinamide 500 MG 1 tablet Orally Once a day for 30 day(s) Active 12 hr timolol 5 mg/ml ophthalmic solution (12 sources) beta-Adrenergic Salvador Start: 06-12-2020 take 1 drop(s) into the eye(s) once daily in the morning Timolol Maleate 0.5 % Ophthalmic Solution INSTILL 1 DROP INTO EACH EYE EVERY MORNING Quantity: 5 Refills: 0 Ordered: 09-Jan-2021 DO Start : 12-Jun-2020 Active Start: 06-07-2018 End: 12-17-2023 take 1 drop(s) into the eye(s) once daily Timolol Maleate 0.5 % drops Discontinued 1 DROPS OPHTHALMIC Daily June 07, 2018 1:00am December 17, 2023 3:28pm Start: 06-07-2018 End: 12-17-2023 take 1 drop(s) into the eye(s) once daily Timolol Maleate Discontinued 1 DROPS OPHTHALMIC Daily June 07, 2018 1:00am December 17, 2023 3:28pm Start: 06-07-2018 take 1 drop(s) into the eye(s) once daily Timolol Maleate Active 1 DROPS OPHTHALMIC Daily June 07, 2018 1:00am Start: 06-07-2018 take 1 drop(s) into the eye(s) once daily Timolol Maleate Active 1 DROPS OPHTHALMIC Daily June 07, 2018 12:00am Problems Active Problems Problem Classification Problem Date Documented Date Episodic/Chronic Administrative/social admission (2 sources) Patient encounter status; Translations: [Other specified counseling] 08-01-2024 Episodic Cardiac dysrhythmias (20 sources) Chronic atrial fibrillation; Translations: [Permanent atrial fibrillation] Onset: 01-14-2018 Chronic Cardiac dysrhythmias (2 sources) Cardiac dysrhythmias Onset: 01-14-2018 Chronic obstructive pulmonary disease and bronchiectasis (11 sources) Bronchitis; Translations: [Bronchitis, not specified as acute or chronic] 07-29-2023 Episodic Coronary atherosclerosis and other heart disease (20 sources) Coronary arteriosclerosis; Translations: [Coronary atherosclerosis of unspecified type of vessel, napaimute or graft] Onset: 01-24-2023 06-19-2023 Chronic Deficiency and other anemia (20 sources) Anemia; Translations: [Anemia, unspecified] Onset: 02-10-2024 06-07-2018 Episodic Deficiency and other anemia (1 source) Anemia, unspecified; Translations: [ANEMIA UNSPECIFIED] Onset: 10-10-2022 Episodic Deficiency and other anemia (20 sources) Iron deficiency anemia; Translations: [Iron deficiency anemia, unspecified] Onset: 02-29-2024 06-08-2018 Episodic Delirium, dementia, and amnestic and other cognitive disorders (20 sources) Senile dementia; Translations: [Alzheimer's disease with late onset] Onset: 02-17-2024 02-17-2024 Chronic Diverticulosis and diverticulitis (20 sources) Diverticular disease of colon; Translations: [Diverticulosis of intestine, part unspecified, without perforation or abscess without bleeding] Onset: 02-10-2024 07-29-2023 Chronic E Codes: Fall (2 sources) Fall; Translations: [Unspecified fall, initial encounter] 11-02-2024 Episodic Gastroduodenal ulcer (except hemorrhage) (20 sources) Gastric ulcer without hemorrhage, without perforation AND without obstruction; Translations: [Gastric ulcer, unspecified as acute or chronic, without hemorrhage or perforation] Onset: 02-10-2024 07-29-2023 Chronic Glaucoma (20 sources) Primary open angle glaucoma; Translations: [Primary open-angle glaucoma, bilateral, moderate stage] Onset: 07-24-2023 07-24-2023 Chronic Hypertension with complications and secondary hypertension (20 sources) Hypertensive urgency ; Translations: [Hypertensive urgency] Onset: 12-17-2023 12-19-2023 Chronic Malaise and fatigue (4 sources) Asthenia; Translations: [Weakness] 06-21-2024 Episodic Osteoarthritis (20 sources) Primary osteoarthritis of ankle; Translations: [Primary osteoarthritis, left ankle and foot] Onset: 02-10-2024 07-29-2023 Chronic Other aftercare (2 sources) Drug therapy finding; Translations: [Long-term (current) use of other medications] Episodic Other aftercare (20 sources) Encounter for therapeutic drug level monitoring; Translations: [Medication monitoring encounter Z51.81] Onset: 03-07-2021 Resolved: 02-13-2022 Episodic Other and ill-defined heart disease (20 sources) Left ventricular hypertrophy; Translations: [Cardiomegaly] Onset: 02-17-2024 02-17-2024 Chronic Other circulatory disease (2 sources) Patient post angioplasty; Translations: [Other postprocedural status] Episodic Other circulatory disease (20 sources) History of cerebrovascular accident 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 deficits; Translations: [Personal history of transient ischemic attack (TIA), and cerebral infarction 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 deficits] Onset: 02-10-2024 12-21-2023 Episodic Other circulatory disease (4 sources) History of cerebrovascular accident due to ischemia; Translations: [Personal history of transient ischemic attack (TIA), and cerebral infarction 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 deficits] 05-16-2024 Episodic Other circulatory disease (4 sources) Orthostatic hypotension; Translations: [Orthostatic hypotension] 05-27-2024 Episodic Other connective tissue disease (20 sources) Pain in limb; Translations: [Pain in left leg] Episodic Other ear and sense organ disorders (9 sources) Impacted cerumen; Translations: [Impacted cerumen, bilateral] 07-29-2023 Episodic Other ear and sense organ disorders (2 sources) Impacted cerumen, bilateral; Translations: [Impacted cerumen] 07-29-2023 Episodic Other ear and sense organ disorders (2 sources) Excessive cerumen in ear canal ; Translations: [Impacted cerumen, bilateral] 06-21-2024 Episodic Other hematologic conditions (20 sources) MCV - low; Translations: [Other abnormality of red blood cells] Onset: 02-29-2024 06-07-2018 Episodic Other injuries and conditions due to external causes (2 sources) Closed injury of head; Translations: [Unspecified injury of head, initial encounter] 11-02-2024 Episodic Other injuries and conditions due to external causes (1 source) History of fall; Translations: [History of falling] 11-10-2024 Episodic Other nervous system disorders (20 sources) Disorder of brain; Translations: [Encephalopathy, unspecified] Onset: 02-29-2024 12-17-2023 Chronic Other nervous system disorders (4 sources) Encephalopathy, unspecified; Translations: [Encephalopathy, unspecified] Onset: 12-17-2023 12-17-2023 Chronic Other non-traumatic joint disorders (1 source) Pain in left knee; Translations: [Pain in joint, lower leg] 11-10-2024 Episodic Other nutritional; endocrine; and metabolic disorders (20 sources) Obese class I; Translations: [Body mass index (BMI) 31.0-31.9, adult] Chronic Other nutritional; endocrine; and metabolic disorders (3 sources) Obesity; Translations: [Obesity, unspecified] Onset: 01-24-2023 01-24-2023 Chronic Other nutritional; endocrine; and metabolic disorders (20 sources) Body mass index 30+ - obesity; Translations: [Body mass index (BMI) 31.0-31.9, adult] Onset: 02-29-2024 07-29-2023 Chronic Other nutritional; endocrine; and metabolic disorders (2 sources) Body mass index 25-29 - overweight; Translations: [Body Mass Index 29.0-29.9, adult] Episodic Other nutritional; endocrine; and metabolic disorders (2 sources) Overweight; Translations: [Overweight] Episodic Other upper respiratory infections (4 sources) Acute pansinusitis; Translations: [Acute pansinusitis, unspecified] 06-21-2024 Episodic Residual codes; unclassified (2 sources) Altered mental status; Translations: [Altered mental status, unspecified] 12-17-2023 Episodic Residual codes; unclassified (20 sources) Hallucinations; Translations: [Hallucinations, unspecified] Onset: 02-29-2024 12-17-2023 Episodic Superficial injury; contusion (2 sources) Contusion of knee; Translations: [Contusion of unspecified knee, initial encounter] 11-02-2024 Episodic Thyroid disorders (1 source) Hypothyroidism, unspecified; Translations: [HYPOTHYROIDISM UNSPECIFIED] Onset: 10-10-2022 Chronic Unclassified (2 sources) Other assisted (current) drug therapy / Z79.899(ICD-9) Onset: 12-16-2017 Unclassified (2 sources) Encounter for screening for cardiovascular disorders / Z13.6(ICD-9) Onset: 10-08-2017 Unclassified (1 source) Presence of aortocoronary bypass graft / Z95.1(ICD-9) Onset: 10-08-2017 Unclassified (1 source) Athscl heart disease of napaimute coronary artery w/o ang pctrs / I25.10(ICD-9) Onset: 10-08-2017 Unclassified (2 sources) Permanent atrial fibrillation; Translations: [Permanent atrial fibrillation (CMS/HCC)] Onset: 01-24-2023 Past or Other Problems Problem Classification Problem Date Documented Da te Episodic/Chronic Coronary atherosclerosis and other heart disease (4 sources) Presence of aortocoronary bypass graft; Translations: [Coronary angioplasty status] Onset: 01-24-2023 Episodic Heart valve disorders (20 sources) Heart murmur; Translations: [Cardiac murmur, unspecified] Onset: 06-19-2023 06-19-2023 Episodic Nutritional deficiencies (20 sources) Cobalamin deficiency; Translations: [Deficiency of other specified B group vitamins] Onset: 12-17-2023 12-21-2023 Episodic Other aftercare (20 sources) Taking high risk medication; Translations: [Other superintendent container terminal (current) drug therapy] Onset: 01-24-2023 06-19-2023 Episodic Other aftercare (2 sources) Other assisted (current) drug therapy; Translations: [Other superintendent container terminal (current) drug therapy] Onset: 01-24-2023 Episodic Other aftercare (16 sources) Long-term current use of anticoagulant; Translations: [termite control service representative (current) use of anticoagulants] Onset: 07-04-2024 07-04-2024 Episodic Other circulatory disease (3 sources) Personal history of transient ischemic attack (TIA), and cerebral infarction 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 deficits; Translations: [Personal history of transient ischemic attack (TIA), and cerebral infarction 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 deficits] Onset: 12-17-2023 12-23-2023 Episodic Residual codes; unclassified (3 sources) Altered mental status, unspecified; Translations: [Altered mental status] Onset: 12-17-2023 12-17-2023 Episodic Residual codes; unclassified (2 sources) Hallucinations, unspecified; Translations: [Hallucinations] Onset: 12-17-2023 12-23-2023 Episodic Residual codes; unclassified (20 sources) Localized edema; Translations: [Localized edema] Onset: 02-17-2024 02-17-2024 Episodic Screening and history of mental health and substance abuse codes (20 sources) Ex-smoker; Translations: [Personal history of tobacco use] Onset: 01-24-2023 01-24-2023 Episodic Comment on above: Quit 1985; Unclassified (1 source) Encounter for screening for cardiovascular disorders; Translations: [Encounter for screening for cardiovascular disorders] Onset: 10-08-2017 Unclassified (1 source) Other superintendent container terminal (current) drug therapy; Translations: [Other assisted (current) drug therapy] Onset: 12-16-2017 Unclassified (3 sources) Onset: 06-19-2023 06-19-2023 Results Test Name Value Interpretation Reference Range Facility X-ray reportOrdered By: Jacek Church on 11-10-2024 Study report [address] [address] XRay Report Signed Patient: Emigdio Jeong III MR#: [id number] : 1940 Acct:[id number] Age/Sex: 84 / M ADM Date: 5 [facility] Attending Dr: Isabelle Rucker BLADE SHARPENER-C Copies to: KAREN De La Cruz~ Ordering [...] Church M.D. 11/10/2024 6:04 PM Dictation Location: [place] [address] Transcribed By: [facility] 11/10/241803 Dictated By: Vitor Church DO 11/10/241802 Signed By: 11/10/241803 [facility] XR knee LT 4V*on 11-10-2024 XR knee LT 4V* [address] [address] XRay Report Signed Patient: Emigdio Jeong III MR#: [id number] : 1940 Acct:[id number] Age/Sex: 84 / M ADM Date: 11/10/24 Loc: XDCLY Room: Type: [facility] Attending Dr: Isabelle Rucker BLADE SHARPENER-C Copies to: KAREN De La Cruz Ordering [...] Church M.D. 11/10/2024 6:04 PM Dictation Location: [place] [address] Transcribed By: [facility] 11/10/241803 Dictated By: Vitor Church DO 11/10/241802 Signed By: 11/10/24 180 Normal [facility] Alanine aminotransferase [En zymatic activity/volume] in Serum or PlasmaOrdered By: Josue Leigh on 11-02-2024 ALT [Catalytic activity/Vol] Alanine aminotransferase [Enzymatic activity/volume] in Serum or Plasma 752 [facility] Albumin [Mass/volume] in Ser um or Plasma by Bromocresol green (BCG) dye binding methoOrdered By: Josue Leigh on 11-02-2024 Albumin BCG dye [Mass/Vol] Albumin [Mass/volume] in Serum or Plasma by Bromocresol green (BCG) dye binding metho Low 3.5-5.7 [facility] Alkaline phosphatase [Enzyma tic activity/volume] in Serum or PlasmaOrdered By: Josue Leigh on 11-02-2024 ALP [Catalytic activity/Vol] Alkaline phosphatase [Enzymatic activity/volume] in Serum or Plasma 34-104 [facility] Aspartate aminotransferase [ Enzymatic activity/volume] in Serum or PlasmaOrdered By: Josue Leigh on 11-02-2024 AST [Catalytic activity/Vol] Aspartate aminotransferase [Enzymatic activity/volume] in Serum or Plasma 13-39 [facility] Basophils Auto (Bld) [#/Vol] Ordered By: Josue Leigh on 11-02-2024 Basophils (Bld) [#/Vol] Automated basophil count 0.0-0.2 [facility] Basophils/100 WBC Auto (Bld) Ordered By: Josue Leigh on 11-02-2024 Basophils/100 WBC (Bld) Automated basophil % . [facility] Bilirubin.total [Mass/volume ] in Serum or PlasmaOrdered By: Josue Leigh on 11-02-2024 Bilirubin [Mass/Vol] Bilirubin.total [Mass/volume] in Serum or Plasma 0.3-1.0 [facility] CT cervical spine wo conon 0 11-02-2024 CT cervical spine wo con [facility] [place] [address] CT Scan Report Signed Patient: Emigdio Jeong III MR#: [id number] : 1940 Acct:[id number] Age/Sex: 84 / M ADM Date: 11/02/24 Loc: ER Room: Type: [facility] ER Attending Dr: Copies to: Josue Leigh DO Ordering Provider: Josue Leigh DO Date of Service: 11/02/24 CT/CT cervical spine wo con: fall CT CERVICAL SPINE WITHOUT CONTRAST WITH 3D RECONSTRUCTIONS: CLINICAL HISTORY: Fall, laceration to forehead, positive LOC COMPARISON: None TECHNIQUE: Spiral axial unenhanced images were obtained through the cervical spine. Sagittal, coronal and 3D volume-rendered reconstructions were also reviewed. This CT exam was performed using one or more following dose reduction techniques: Automated exposure control, adjustment of the mA and/or kV according to patient size, or use of iterative reconstruction technique. FINDINGS: Mild to moderate multilevel degenerative changes with multilevel intervertebral space narrowing associated endplate osteophytosis. Multilevel uncovertebral and facet arthropathy. No fracture or malalignment. No prevertebral soft tissue swelling. Vascular calcifications. No prevertebral soft tissue swelling. Multilevel foraminal encroachment noted. Mild interstitial edema involving the lung apices. CT/CT cervical spine wo con IMPRESSION: NO CERVICAL SPINE FRACTURE Impression dictated by: Pako Hassan M.D. 11/02/2024 6:47 PM Dictation Location: [facility]-29 Transcribed By: SKYLER 11/02/241846 Dictated By: Pako Hassan MD 11/02/241844 Signed By: 11/02/241846 Normal [facility] CT head/brain wo conon 11-02 CT head/brain wo con [facility] [place] [address] CT Scan Report Signed Patient: Emigdio Jeong III MR#: [id number] : 1940 Acct:[id number] Age/Sex: 84 / M ADM Date: 11/02/24 Loc: ER Room: Type: [facility] ER Attending Dr: Copies to: Josue Leigh DO Ordering Provider: Josue Leigh DO Date of Service: 11/02/24 CT/CT head/brain wo con: fall CT BRAIN WITHOUT CONTRAST: CLINICAL HISTORY: Fall, positive LOC, laceration to forehead COMPARISON: 12/17/2023 TECHNIQUE: Contiguous axial unenhanced images were obtained through the brain. This CT exam was performed using one or more following dose reduction techniques: Automated exposure control, adjustment of the mA and/or kV according to patient size, or use of iterative reconstruction technique. FINDINGS: There is no evidence of midline shift, intra or extra-axial fluid collection, hemorrhage or CT evidence of large vascular distribution stroke. Central involutional changes. Chronic small vessel ischemic disease. Vascular calcifications. Cataract surgery. Visualized paranasal sinuses are clear. No calvarial fracture. Left frontal soft tissue swelling. CT/CT head/brain wo con IMPRESSION: NO ACUTE INTRACRANIAL ABNORMALITY. 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 Impression dictated by: Pako Hassan M.D. 11/02/2024 6:41 PM Dictation Location: [facility] Transcribed By: SKYLER 11/02/241840 Dictated By: Pako Hassan MD 11/02/241833 Signed By: 11/02/241840 Normal [facility] Calcium [Mass/volume] in Ser um or PlasmaOrdered By: Josue Leigh on 11-02-2024 Calcium [Mass/Vol] Calcium [Mass/volume ] in Serum or Plasma Low 8.6-10.3 [facility] Carbon dioxide, total [Moles /volume] in Serum or PlasmaOrdered By: Josue Leigh on 11-02-2024 CO2 [Moles/Vol] Carbon dioxide, tota l [Moles/volume] in Serum or Plasma 21.0-31.0 [facility] Chloride [Moles/volume] in S arline or PlasmaOrdered By: Josue Leigh on 11-02-2024 Chloride [Moles/Vol] Chloride [Moles/vol ume] in Serum or Plasma 98-107 [facility] Complete Blood Count Auto Di ffon 11-02-2024 Basophils (Bld) [#/Vol] 0.0 10*3/uL Normal 0.0-0.2 [facility] Comment on above: Result Comment: PERF ORMED BY: [place] [address] PATHOLOGIST APPLICATION DESIGNER DARNELL LIZAMA M.D. Performed By: #### C BC, CMP #### [address] Basophils/100 WBC (Bld) 0.7 % Normal . [facility] Comment on above: Performed By: #### C BC, CMP #### [address] Eosinophils (Bld) [#/Vol] 0.2 10*3/uL Normal 0.0-0.45 [facility] Comment on above: Performed By: #### C BC, CMP #### [place] [address] [place] Eosinophils/100 WBC (Bld) 3.9 % Normal . [facility] Comment on above: Performed By: #### C BC, CMP #### [address] Erythrocyte distribution width (RBC) [Ratio] 18.1 % High 12.0-14.8 [facility] Comment on above: Performed By: #### C BC, CMP #### [address] Hematocrit (Bld) [Volume fraction] 39.4 % Normal 38.8-50.0 [facility] Comment on above: Performed By: #### C BC, CMP #### [address] Hemoglobin (Bld) [Mass/Vol] 12.7 g/dL Low 13.0-17.0 [facility] Comment on above: Performed By: #### C BC, CMP #### [address] Lymphocytes (Bld) [#/Vol] 1.4 10*3/uL Normal 1.00-4.8 [facility] Comment on above: Performed By: #### C BC, CMP #### [address] Lymphocytes/100 WBC (Bld) 29.2 % Normal . [facility] Comment on above: Performed By: #### C BC, CMP #### [address] MCH (RBC) [Entitic mass] 26.7 pg Low 27.5-35.2 [facility] Comment on above: Performed By: #### C BC, CMP #### [address] MCV (RBC) [Entitic vol] 83.0 fL Low 83.5-101 [facility] Comment on above: Performed By: #### C BC, CMP #### [address] Mean Corpuscular HGB Conc 32.2 g/dL Low 32.5-35.6 [facility] Comment on above: Performed By: #### C BC, CMP #### [address] Monocytes (Bld) [#/Vol] 0.7 10*3/uL Normal 0.0-0.8 [facility] Comment on above: Performed By: #### C BC, CMP #### [place] [address] [place] Monocytes/100 WBC (Bld) 19.52 % Normal 0.00-20.00 [facility] Comment on above: Performed By: #### C BC, CMP #### [place] [address] [place] Monocytes/100 WBC (Bld) 15.5 % Normal . [facility] Comment on above: Performed By: #### C BC, CMP #### [place] [address] [place] Neutrophils (Bld) [#/Vol] 2.4 10*3/uL Normal 1.8-7.7 [facility] Comment on above: Performed By: #### C BC, CMP #### [address] Neutrophils/100 WBC (Bld) 50.7 % Normal . [facility] Comment on above: Performed By: #### C BC, CMP #### [address] NRBC% 0.1 /100{WBC} Normal 0-0.5 [facility] Comment on above: Performed By: #### C BC, CMP #### [address] Platelet mean volume (Bld) [Entitic vol] 8.7 fL Normal 6.6-10.1 [facility] Comment on above: Performed By: #### C BC, CMP #### [place] [address] [place] Platelets (Bld) [#/Vol] 132 10*3/uL Low 150-450 [facility] Comment on above: Performed By: #### C BC, CMP #### [place] [address] [place] RBC (Bld) [#/Vol] 4.75 10*6/uL Normal 3.90-5.60 [facility] Comment on above: Performed By: #### C BC, CMP #### [address] WBC (Bld) [#/Vol] 4.7 10*3/uL Normal 4.1-10.5 [facility] Comment on above: Performed By: #### C BC, CMP #### [address] Comprehensive Metabolic Pane robert 11-02-2024 Albumin [Mass/Vol] 3.4 g/dL Low 3.5-5.7 [facility] Comment on above: Performed By: #### C BC, CMP #### [address] Albumin/Globulin [Mass ratio] 1.4 {ratio} Normal [facility] Comment on above: Performed By: #### C BC, CMP #### [address] ALP [Catalytic activity/Vol] 85 U/L Normal 34-104 [facility] Comment on above: Performed By: #### C BC, CMP #### [address] ALT [Catalytic activity/Vol] 22 U/L Normal 7-52 [facility] Comment on above: Performed By: #### C SHARON, CMP #### [address] Anion gap [Moles/Vol] 8.4 mmol/L Normal 6.0-15.0 [facility] Comment on above: Performed By: #### C BC, CMP #### [address] AST [Catalytic activity/Vol] 21 U/L Normal 13-39 [facility] Comment on above: Performed By: #### C BC, CMP #### [address] Bilirubin [Mass/Vol] 0.5 mg/dL Normal 0.3-1.0 [facility] Comment on above: Performed By: #### C BC, CMP #### [address] Calcium [Mass/Vol] 8.3 mg/dL Low 8.6-10.3 [facility] Comment on above: Performed By: #### C BC, CMP #### [address] Chloride [Moles/Vol] 104 mmol/L Normal 98-107 [facility] Comment on above: Performed By: #### C BC, CMP #### [address] CO2 [Moles/Vol] 29.6 mmol/L Normal 21.0-31.0 [facility] Comment on above: Performed By: #### C BC, CMP #### [address] Creatinine [Mass/Vol] 1.08 mg/dL Normal 0.70-1.30 [facility] Comment on above: Performed By: #### C BC, CMP #### [address] Creatinine Clr Calc Pharmacy 65.85 Normal [facility] Comment on above: Result Comment: PERF ORMED BY: [place] [address] PATHOLOGIST APPLICATION DESIGNER DARNELL LIZAMA M.D. Performed By: #### C BC, CMP #### [address] GFR/1.73 sq M.predicted MDRD (S/P/Bld) [Vol rate/Area] mL/min/{1.73_m2} Normal [facility] Comment on above: Performed By: #### C BC, CMP #### [place] [address] [place] Globulin (S) [Mass/Vol] 2.4 g/dL Normal [facility] Comment on above: Performed By: #### C BC, CMP #### [address] Glucose [Mass/Vol] 133 mg/dL High 70-100 [facility] Comment on above: Result Comment: [place] om Glucose Reference Range is dependent on time and content of last meal. Glucose of more than 200 mg/dL in a nonstressed, ambulatory subject supports the diagnosis of Diabetes Mellitus. ADA recommended reference range Performed By: #### C BC, CMP #### [facility] [address] [place] [id number] [place] Potassium [Moles/Vol] 4.0 mmol/L Normal 3.5-5.1 [facility] Comment on above: Performed By: #### C BC, CMP #### [facility] [address] [place] [phone] [place] Protein [Mass/Vol] 5.8 g/dL Low 6.4-8.9 [facility] Comment on above: Performed By: #### C BC, CMP #### [facility] [address] [place] [phone] [place] Sodium [Moles/Vol] 138 mmol/L Normal 136-145 [facility] Comment on above: Performed By: #### C BC, CMP #### [facility] [address] [place] [phone] [place] Urea nitrogen [Mass/Vol] 15 mg/dL Normal 7-25 [facility] Comment on above: Performed By: #### C SHARON, CMP #### [facility] [address] [place] [phone] [place] Creatinine [Mass/volume] in Serum or PlasmaOrdered By: Josue Leigh on 11-02-2024 Creatinine [Mass/Vol] Creatinine [Mass/v olume] in Serum or Plasma 0.70-1.30 [facility] ECG 12 lead ECGon 11-02-2024 ECG 12 lead ECG [facility] [address] [place] [address] [place] [address] Electrocardiograph Report Signed Patient: Emigdio Jeong III MR#: [id number] : 1940 Acct:[id number] Age/Sex: 84 / M ADM Date: 11/02/24 Loc: ER Room: Type: [facility] ER Attending Dr: Ordering Provider: Josue Leigh DO Date of Service: 11/02/24 ECG/ECG 12 lead ECG: Fall Copies to: Test Reason : Blood Pressure : 187/94 mmHG Vent. Rate : 70 BPM Atrial Rate : 394 BPM P-R Int : * ms QRS Dur : 114 ms QT Int : 412 ms P-R-T Axes : * 75 12 degrees QTcB Int : 444 ms Atrial fibrillation Incomplete right bundle branch block Confirmed by Josue LEIGH DO ([id number]) on 11/02/2024 8:52:56 PM Referred By: Electronically Signed By: Josue LEIGH DO Transcribed By: MUS Signed By Josue Leigh DO 0 11/02/242051 Normal [facility] Eosinophils Auto (Bld) [#/Vo l]Ordered By: Josue Leigh on 11-02-2024 Eosinophils (Bld) [#/Vol] Automated eosinophil count 0.0-0.45 [facility] Eosinophils/100 WBC Auto (Bl d)Ordered By: Josue Leigh on 11-02-2024 Eosinophils/100 WBC (Bld) Automated eosinophil % . [facility] Erythrocyte distribution wid th Auto (RBC) [Ratio]Ordered By: Josue Leigh on 11-02-2024 Erythrocyte distribution width (RBC) [Ratio] Erythrocyte distribution width [Ratio] by Automated count High 12.0-14.8 [facility] Globulin Calc (S) [Mass/Vol] Ordered By: Josue Leigh on 11-02-2024 Globulin (S) [Mass/Vol] Serum globulin measurement by calculation (mass/volume) [facility] Glucose [Mass/volume] in Ser um or PlasmaOrdered By: Josue Leigh on 11-02-2024 Glucose [Mass/Vol] Glucose [Mass/volume ] in Serum or Plasma High 70-100 [facility] Comment on above: ADA recommended refe rence rangeRandom Glucose Reference Range is dependent on time and content of last meal. Glucose of more than 200 mg/dL in a nonstressed, ambulatory subject supports the diagnosis of Diabetes Mellitus. Hematocrit Auto (Bld) [Volum e fraction]Ordered By: Josue Leigh on 11-02-2024 Hematocrit (Bld) [Volume fraction] Hematocrit [Volume Fraction] of Blood by Automated count 38.8-50.0 [facility] Hemoglobin [Mass/volume] in BloodOrdered By: Josue Leigh on 11-02-2024 Hemoglobin (Bld) [Mass/Vol] Hemoglobin [Mass/volume] in Blood Low 13.0-17.0 [facility] Leukocytes [#/volume] correc svitlana for nucleated erythrocytes in Blood by Automated counOrdered By: Josue Leigh on 11-02-2024 WBC corrected for nucl RBC Auto (Bld) [#/Vol] Leukocytes [#/volume] corrected for nucleated erythrocytes in Blood by Automated coun 4.1-10.5 [facility] Lymphocytes Auto (Bld) [#/Vo l]Ordered By: Josue Leigh on 11-02-2024 Lymphocytes (Bld) [#/Vol] Lymphocytes [#/volume] in Blood by Automated count 1.00-4.8 [facility] Lymphocytes/100 WBC Auto (Bl d)Ordered By: Josue Leigh on 11-02-2024 Lymphocytes/100 WBC (Bld) Lymphocytes/100 leukocytes in Blood by Automated count . [facility] MCH Auto (RBC) [Entitic mass ]Ordered By: Josue Leigh on 11-02-2024 MCH (RBC) [Entitic mass] MCH [Entitic mass] by Automated count Low 27.5-35.2 [facility] MCHC Auto (RBC) [Mass/Vol]Or dered By: Josue Leigh on 11-02-2024 MCHC (RBC) [Mass/Vol] MCHC [Mass/volume] by Automated count Low 32.5-35.6 [facility] MCV Auto (RBC) [Entitic vol] Ordered By: Josue Leigh on 11-02-2024 MCV (RBC) [Entitic vol] MCV [Entitic volume] by Automated count Low 83.5-101 [facility] Monocyte distribution width [Entitic volume] in Blood by AutomatedOrdered By: Josue Leigh on 11-02-2024 Monocyte distribution width Auto (Bld) [Entitic vol] Monocyte distribution width [Entitic volume] in Blood by Automated 0.00-20.00 [facility] Monocytes Auto (Bld) [#/Vol] Ordered By: Josue Leigh on 11-02-2024 Monocytes (Bld) [#/Vol] Automated blood monocyte count 0.0-0.8 [facility] Monocytes/100 WBC Auto (Bld) Ordered By: Josue Leigh on 11-02-2024 Monocytes/100 WBC (Bld) Automated monocyte % . [facility] Neutrophils Auto (Bld) [#/Vo l]Ordered By: Josue Leigh on 11-02-2024 Neutrophils (Bld) [#/Vol] Neutrophils [#/volume] in Blood by Automated count 1.8-7.7 [facility] Neutrophils/100 WBC Auto (Bl d)Ordered By: Josue Leigh on 11-02-2024 Neutrophils/100 WBC (Bld) Automated neutrophil % . [facility] No Panel InformationOrdered By: Josue Leigh on 11-02-2024 Estimated GFR (CKD-EPI) > 60.0 mL/Min [facility] Creatinine Clearance (Chem 65.85 [facility] Nucleated erythrocytes [Pres ence] in Blood by Automated countOrdered By: Josue Leigh on 11-02-2024 Nucleated RBC Auto Ql (Bld) Nucleated erythrocytes [Presence] in Blood by Automated count 0-0.5 [facility] Platelet mean volume Auto (B ld) [Entitic vol]Ordered By: Josue Leigh on 11-02-2024 Platelet mean volume (Bld) [Entitic vol] Platelet mean volume [Entitic volume] in Blood by Automated count 6.6-10.1 [facility] Platelets Auto (Bld) [#/Vol] Ordered By: Josue Leigh on 11-02-2024 Platelets (Bld) [#/Vol] Platelets [#/volume] in Blood by Automated count Low 150-450 [facility] Potassium [Moles/volume] in Serum or PlasmaOrdered By: Josue Leigh on 11-02-2024 Potassium [Moles/Vol] Potassium [Moles/v olume] in Serum or Plasma 3.5-5.1 [facility] Protein [Mass/volume] in Ser um or PlasmaOrdered By: Josue Leigh on 11-02-2024 Protein [Mass/Vol] Protein [Mass/volume ] in Serum or Plasma Low 6.4-8.9 [facility] RBC Auto (Bld) [#/Vol]Ordere d By: Josue Leigh on 11-02-2024 RBC (Bld) [#/Vol] Erythrocytes [#/volu me] in Blood by Automated count 3.90-5.60 [facility] Serum or plasma albumin/glob ulin mass ratioOrdered By: Josue Leigh on 11-02-2024 Albumin/Globulin [Mass ratio] Serum or plasma albumin/globulin mass ratio [facility] Serum or plasma anion gap de terminationOrdered By: Josue Leigh on 11-02-2024 Anion gap [Moles/Vol] Serum or plasma an ion gap determination 6.0-15.0 [facility] Sodium [Moles/volume] in Ser um or PlasmaOrdered By: Josue Leigh on 11-02-2024 Sodium [Moles/Vol] Sodium [Moles/volume ] in Serum or Plasma 136-145 [facility] Troponin I High Sensitivityo n 11-02-2024 Troponin I High Sensitivity 18 Normal 0-20 [facility] Comment on above: Result Comment: The Troponin units of report have been changed to meet the Chest Pain Accreditation requirement, element EC5.M1l2. Troponin units are changed from pg/ml to ng/L. Also, the decimal is removed and results are in whole numbers. PERFORMED BY: [place] [address] PATHOLOGIST APPLICATION DESIGNER DARNELL LIZAMA M.D. Performed By: #### C BC, CMP #### [address] Troponin I.cardiac [Mass/vol ume] in Serum or Plasma by Detection limit <= 0.01 ng/Ordered By: Josue Leigh on 11-02-2024 Troponin I.cardiac DL <= 0.01 ng/mL [Mass/Vol] Troponin I.cardiac [Mass/volume] in Serum or Plasma by Detection limit <= 0.01 ng/ 0-20 [facility] Comment on above: The Troponin units o f report have been changed to meet the Chest Pain Accreditation requirement, element EC5.M1l2. Troponin units are changed from pg/ml to ng/L. Also, the decimal is removed and results are in whole numbers. Urea nitrogen [Mass/volume] in Serum or PlasmaOrdered By: Josue Leigh on 11-02-2024 Urea nitrogen [Mass/Vol] Urea nitrogen [Mass/volume] in Serum or Plasma 7-25 [facility] WBC Auto (Bld) [#/Vol]Ordere d By: Josue Leigh on 11-02-2024 WBC (Bld) [#/Vol] Leukocytes [#/volume ] in Blood by Automated count 4.1-10.5 [facility] X-ray reportOrdered By: Elieser Hassan on 11-02-2024 Study report [facility] [address] XRay Report Signed Patient: Emigdio Jeong III MR#: [id number] : 1940 Acct:[id number] Age/Sex: 84 / M ADM Date: 5 Loc: ER Room: Type: [facility] ER Attending Dr: Copies to: Josue Leigh DO~ Ordering Provider: Josue Leigh DO Date of Service: 11/02/24 XR/XR knee LT 4V*: FALL 4 views of the left knee INDICATION: Fall COMPARISON: x-ray 06/21/2021: FINDINGS: Prior ORIF of the tibia noted. Mild tricompartmental degenerative changes at level of the knee. No fracture dislocation. Surgical clips identified along the lower extremity. Moderate soft tissue swelling anterior aspect of the knee. XR/XR knee LT 4V* IMPRESSION: Mild degenerative changes. Negative for fracture or dislocation. Moderate anterior knee soft tissue swelling, nonspecific. Impression dictated by: Pako Hassan M.D. 11/02/2024 6:49 PM Dictation Location: [place] [address] Transcribed By: [facility] 11/02/241848 Dictated By: Pako Hassan MD 11/02/241846 Signed By: 11/02/241848 [facility] Work Phone: Study report [facility] [address] [address] XRay Report Signed Patient: Emigdio Jeong III MR#: [id number] : 1940 Acct:[id number] Age/Sex: 84 / M ADM Date: 5 Loc: ER Room: Type: [facility] ER Attending Dr: Copies to: Josue Leigh DO~ Ordering Provider: Josue Leigh DO Date of Service: 11/02/24 XR/XR chest 2V*: FALL PA AND LATERAL CHEST: CLINICAL HISTORY: Fall COMPARISON: No comparison x-rays available. FINDINGS: Sternotomy wires. Enlarged cardiomediastinal silhouette. Lungs are clear. No effusion or pneumothorax. No focal opacity, effusion or pneumothorax. XR/XR chest 2V* IMPRESSION: NO ACUTE CARDIOPULMONARY ABNORMALITY. Impression dictated by: Pako Hassan M.D. 11/02/2024 6:44 PM Dictation Location: [facility]-29 Transcribed By: SKYLER 11/02/241843 Dictated By: Pako Hassan MD 11/02/241842 Signed By: 11/02/241843 [facility] Work Phone: XR chest 2V*on 11-02-2024 XR chest 2V* [facility] [address] XRay Report Signed Patient: Emigdio Jeong III MR#: [id number] : 1940 Acct:[id number] Age/Sex: 84 / M ADM Date: 11/02/24 Loc: ER Room: Type: [facility] ER Attending Dr: Copies to: Josue Leigh DO Ordering Provider: Josue Leigh DO Date of Service: 11/02/24 XR/XR chest 2V*: FALL PA AND LATERAL CHEST: CLINICAL HISTORY: Fall COMPARISON: No comparison x-rays available. FINDINGS: Sternotomy wires. Enlarged cardiomediastinal silhouette. Lungs are clear. No effusion or pneumothorax. No focal opacity, effusion or pneumothorax. XR/XR chest 2V* IMPRESSION: NO ACUTE CARDIOPULMONARY ABNORMALITY. Impression dictated by: Pako Hassan M.D. 11/02/2024 6:44 PM Dictation Location: [facility]-29 Transcribed By: SKYLER 11/02/241843 Dictated By: Pako Hassan MD 11/02/241842 Signed By: 11/02/241843 Normal [facility] XR knee LT 4V*on 11-02-2024 XR knee LT 4V* [facility] Main [address] [address] XRay Report Signed Patient: Emigdio Jeong III MR#: [id number] : 1940 Acct:[id number] Age/Sex: 84 / M ADM Date: 11/02/24 Loc: ER Room: Type: [facility] ER Attending Dr: Copies to: Josue Leigh DO Ordering Provider: Josue Leigh DO Date of Service: 11/02/24 XR/XR knee LT 4V*: FALL 4 views of the left knee INDICATION: Fall COMPARISON: x-ray 06/21/2021: FINDINGS: Prior ORIF of the tibia noted. Mild tricompartmental degenerative changes at level of the knee. No fracture dislocation. Surgical clips identified along the lower extremity. Moderate soft tissue swelling anterior aspect of the knee. XR/XR knee LT 4V* IMPRESSION: Mild degenerative changes. Negative for fracture or dislocation. Moderate anterior knee soft tissue swelling, nonspecific. Impression dictated by: Pako Hassan M.D. 11/02/2024 6:49 PM Dictation Location: [place] [address] Transcribed By: [facility] 11/02/241848 Dictated By: Pako Hassan MD 11/02/241846 Signed By: 11/02/241848 Normal [facility] Laboratory - Cytologyon 05-0 Microscopic observation Cyto stain Nom (Cvx) 3.3 [facility] No Panel Informationon 10-10 Interpretation and review of laboratory results Normal [facility] Laboratory - Cytologyon - Microscopic observation Cyto stain Nom (Cvx) 3.7 [facility] No Panel Informationon 08-29 [facility] Laboratory - Cytologyon 07-10 Microscopic observation Cyto stain Nom (Cvx) 4.7 [facility] No Panel Informationon 08-01 [facility] Laboratory - Cytologyon - Microscopic observation Cyto stain Nom (Cvx) 2.3 [facility] No Panel Informationon 07-04 Interpretation and review of laboratory results Normal [facility] Laboratory - Cytologyon 06-09 Microscopic observation Cyto stain Nom (Cvx) 7.7 [facility] No Panel Informationon 07-01 [facility] URINALYSIS MICROSCOPIC WITH REFLEX CULTUREon 06-29-2024 AMORPHOUS SEDIMENT URINE MANY [facility] BACTERIA URINE NONE SEEN NONE SEEN #/HPF [facility] BILIRUBIN URINE Negative NEGATIVE [facility] BLOOD URINE Negative NEGATIVE [facility] CAST SEEN? NONE SEEN NONE SEEN #/LPF [facility] Clarity (U) CLOUDY Abnormal CLEAR [facility] Color (U) YELLOW YELLOW [facility] CRYSTALS SEEN? Seen Abnormal None Seen #/HPF [facility] GLUCOSE URINE UA Negative NEGATIVE mg/dL [facility] Interpretation and review of laboratory results Abnormal [facility] Ketones Ql (U) Negative NEGATIVE mg/dL [facility] Leukocyte esterase Test strip Ql (U) Negative NEGATIVE [facility] MUCUS URINE NONE SEEN NONE SEEN [facility] NITRITE URINE Negative NEGATIVE [facility] pH (U) 6.0 [pH] 5.0 - 9.0 [facility] PROTEIN URINE Negative NEG/TRACE mg/dL [facility] SPECIFIC GRAVITY URINE 1.025 1.005 - 1.025 [facility] SQUAMOUS EPITHELIAL CELL URINE RARE NONE/RARE #/LPF [facility] TB CALCIUM OXALATE CRYSTALS URINE RARE [facility] RBC 0-2 [facility] TB WBC NONE SEEN NONE SEEN #/HPF [facility] URINE CULTURE INDICATED NO [facility] UROBILINOGEN URINE 0.2 EU/dL 0.2 - 1.0 EU/dL [facility] CBC (H/H, RBC, INDICES, WBC, PLT)on 06-22-2024 Erythrocyte distribution width (RBC) [Ratio] 17.1 % High 11.0-15.0 [facility] Comment on above: Performed By: #### 1 3648, 8061 #### [facility] [address], [address] [place] [address] Design Project Manager: Murray Sprague MD Hematocrit (Bld) [Volume fraction] 45.8 % Normal 38.5-50.0 [facility] Comment on above: Performed By: #### 1 9325, 175 #### [facility] [place] [address] Design Project Manager: Murray Sprague MD Hemoglobin (Bld) [Mass/Vol] 13.9 g/dL Normal 13.2-17.1 [facility] Comment on above: Performed By: #### 1 230, 175 #### [facility] [place] [address] Design Project Manager: Murray Sprague MD MCH (RBC) [Entitic mass] 24.5 pg Low 27.0-33.0 [facility] Comment on above: Performed By: #### 1 230, 1758 #### [facility] of [place] [address] Design Project Manager: Murray Sprague MD MCHC (RBC) [Mass/Vol] 30.3 g/dL Low 32.0-36.0 [facility] Comment on above: Result Comment: For adults, a slight decrease in the calculated MCHC value (in the range of 30 to 32 g/dL) is most likely not clinically significant; however, it should be interpreted with caution in correlation with other red cell parameters and the patient's clinical condition. Performed By: #### 1 230, 175 #### [facility] of [place] [address] Design Project Manager: Murray Sprague MD MCV (RBC) [Entitic vol] 80.8 fL Normal 80.0-100.0 [facility] Comment on above: Performed By: #### 1 230, 175 #### [facility] [place] [address] Design Project Manager: Murray Sprague MD Platelet mean volume (Bld) [Entitic vol] 11.4 fL Normal 7.5-12.5 [facility] Comment on above: Performed By: #### 1 230, 175 #### [facility] [place] [address] Design Project Manager: Murray Sprague MD Platelets (Bld) [#/Vol] 141 10*3/uL Normal 140-400 [facility] Comment on above: Performed By: #### 1 0231, 1759 #### [facility] of [address], [address] [place] [address] Design Project Manager: Murray Sprague MD RBC (Bld) [#/Vol] 5.67 10*6/uL Normal 4.20-5.80 [facility] Comment on above: Performed By: #### 1 0231, 1759 #### [facility] of [address], [address] [place] [address] Design Project Manager: Murray Sprague MD WBC (Bld) [#/Vol] 4.4 10*3/uL Normal 3.8-10.8 [facility] Comment on above: Performed By: #### 1 0231, 1759 #### [facility] of [address], [address] [place] [address] Design Project Manager: Murray Sprague MD COMPREHENSIVE METABOLIC PANE [facility] 06-22-2024 Albumin [Mass/Vol] 4.0 g/dL Normal 3.6-5.1 [facility] Comment on above: Order Comment: FASTI NG:UNKNOWN FASTING: UNKNOWN Performed By: #### 1 0231, 1759 #### [facility] of [address], [address] [place] [address] Design Project Manager: Murray Sprague MD Albumin/Globulin [Mass ratio] 1.7 {ratio} Normal 1.0-2.5 [facility] Comment on above: Order Comment: FASTI NG:UNKNOWN FASTING: UNKNOWN Performed By: #### 1 0231, 1759 #### [facility] of [address], [address] [place] [address] Design Project Manager: Murray Sprague MD ALP [Catalytic activity/Vol] 58 U/L Normal 35-144 [facility] Comment on above: Order Comment: FASTI NG:UNKNOWN FASTING: UNKNOWN Performed By: #### 1 0231, 1759 #### [facility] of [address], [address] [place] [address] Design Project Manager: Murray Sprague MD ALT [Catalytic activity/Vol] 17 U/L Normal 9-46 [facility] Comment on above: Order Comment: FASTI NG:UNKNOWN FASTING: UNKNOWN Performed By: #### 1 0231, 1759 #### [facility] [address], [address] [place] [address] Design Project Manager: Murray Sprague MD AST [Catalytic activity/Vol] 24 U/L Normal 10-35 [facility] Comment on above: Order Comment: FASTI NG:UNKNOWN FASTING: UNKNOWN Performed By: #### 1 023, 175 #### [facility] [address], [address] [place] [address] Design Project Manager: Murray Sprague MD Bilirubin [Mass/Vol] 0.9 mg/dL Normal 0.2-1.2 [facility] Comment on above: Order Comment: FASTI NG:UNKNOWN FASTING: UNKNOWN Performed By: #### 1 230, 175 #### [facility] [address], [address] [place] [address] Design Project Manager: Murray Sprague MD BUN/CREATININE RATIO SEE NOTE: Normal 6-22 [facility] Comment on above: Order Comment: FASTI NG:UNKNOWN FASTING: UNKNOWN Result Comment: Not Reported: BUN and Creatinine are within reference range. Performed By: #### 1 230, 175 #### [facility] [address], [address] [place] [address] Design Project Manager: Murray Sprague MD Calcium [Mass/Vol] 8.7 mg/dL Normal 8.6-10.3 [facility] Comment on above: Order Comment: FASTI NG:UNKNOWN FASTING: UNKNOWN Performed By: #### 1 023, 175 #### [facility] [address], [address] [place] [address] Design Project Manager: Murray Sprague MD Chloride [Moles/Vol] 100 mmol/L Normal 98-110 [facility] Comment on above: Order Comment: FASTI NG:UNKNOWN FASTING: UNKNOWN Performed By: #### 1 023, 175 #### [facility] [address], [address] [place] [address] Design Project Manager: Murray Sprague MD CO2 [Moles/Vol] 30 mmol/L Normal 20-32 [facility] Comment on above: Order Comment: FASTI NG:UNKNOWN FASTING: UNKNOWN Performed By: #### 1 023, 1759 #### [facility] [address], [address] [place] [address] Design Project Manager: Murray Sprague MD Creatinine [Mass/Vol] 1.22 mg/dL Normal 0.70-1.22 [facility] [employer] Comment on above: Order Comment: FASTI NG:UNKNOWN FASTING: UNKNOWN Performed By: #### 1 023, 1759 #### [facility] [place] [address] Design Project Manager: Murray Sprague MD GFR/1.73 sq M.predicted among non-blacks MDRD (S/P/Bld) [Vol rate/Area] 60 mL/min/{1.73_m2} Normal > OR = 60 [facility] Comment on above: Order Comment: FASTI NG:UNKNOWN FASTING: UNKNOWN Performed By: #### 1 023, 1759 #### [facility] [place] [address] Design Project Manager: Murray Sprague MD Globulin (S) [Mass/Vol] 2.4 g/dL Normal 1.9-3.7 [facility] Comment on above: Order Comment: FASTI NG:UNKNOWN FASTING: UNKNOWN Performed By: #### 1 0231, 1759 #### [facility] [place] [address] Design Project Manager: Murray Sprague MD Glucose [Mass/Vol] 77 mg/dL Normal 65-99 [facility] Comment on above: Order Comment: FASTI NG:UNKNOWN FASTING: UNKNOWN Result Comment: Fasting reference interval Performed By: #### 1 023, 1759 #### [facility] [place] [address] Design Project Manager: Murray Sprague MD Potassium [Moles/Vol] 4.0 mmol/L Normal 3.5-5.3 [facility] Comment on above: Order Comment: FASTI NG:UNKNOWN FASTING: UNKNOWN Performed By: #### 1 0231, 1759 #### [facility] [place] [address] Design Project Manager: Murray Sprague MD Protein [Mass/Vol] 6.4 g/dL Normal 6.1-8.1 [facility] Comment on above: Order Comment: FASTI NG:UNKNOWN FASTING: UNKNOWN Performed By: #### 1 0231, 1759 #### [facility] [place] [address] Design Project Manager: Murray Sprague MD Sodium [Moles/Vol] 138 mmol/L Normal 135-146 [facility] Comment on above: Order Comment: FASTI NG:UNKNOWN FASTING: UNKNOWN Performed By: #### 1 0231, 1759 #### [facility] [place] [address] Design Project Manager: Murray Sprague MD Urea nitrogen [Mass/Vol] 21 mg/dL Normal 7-25 [facility] Comment on above: Order Comment: FASTI NG:UNKNOWN FASTING: UNKNOWN Performed By: #### 1 0231, 1759 #### [facility] [place] [address] Design Project Manager: Murray Sprague MD Laboratory - Cytologyon 05-09 Microscopic observation Cyto stain Nom (Cvx) 4.7 [facility] [employer] No Panel Informationon 05-27 [facility] CBC (INCLUDES DIFF/PLT)on Basophils (Bld) [#/Vol] 0.052 10*3/uL Normal 0-200 [facility] Comment on above: Performed By: #### 1 0231, 3199 #### [facility] [place] [address] Design Project Manager: Murray Sprague MD Basophils/100 WBC (Bld) 1.0 % Normal [facility] Comment on above: Performed By: #### 1 0231, 9299 #### [facility] of [address], [address] [place] [address] Design Project Manager: Murray Sprague MD Eosinophils (Bld) [#/Vol] 0.099 10*3/uL Normal 15-500 [facility] Comment on above: Performed By: #### 1 0231, 6399 #### [facility] of [address], [address] [place] [address] Design Project Manager: Murray Sprague MD Eosinophils/100 WBC (Bld) 1.9 % Normal [facility] Comment on above: Performed By: #### 1 0231, 6399 #### [facility] of [address], [address] [place] [address] Design Project Manager: Murray Sprague MD Erythrocyte distribution width (RBC) [Ratio] 16.9 % High 11.0-15.0 [facility] Comment on above: Performed By: #### 1 0231, 6399 #### [facility] of [address], [address] [place] [address] Design Project Manager: Murray Sprague MD Hematocrit (Bld) [Volume fraction] 41.8 % Normal 38.5-50.0 [facility] Comment on above: Performed By: #### 1 0231, 6399 #### [facility] of [place] [address] Design Project Manager: Murray Sprague MD Hemoglobin (Bld) [Mass/Vol] 13.0 g/dL Low 13.2-17.1 [facility] Comment on above: Performed By: #### 1 0231, 6399 #### [facility] of [address], [address] [place] [address] Design Project Manager: Murray Sprague MD Lymphocytes (Bld) [#/Vol] 1.05 10*3/uL Normal 850-3900 [facility] Comment on above: Performed By: #### 1 0231, 6399 #### [facility] of [address], [address] [place] [address] Design Project Manager: Murray Sprague MD Lymphocytes/100 WBC (Bld) 20.2 % Normal [facility] Comment on above: Performed By: #### 1 230, 6399 #### [facility] [place] [address] Design Project Manager: Murray Sprague MD MCH (RBC) [Entitic mass] 24.4 pg Low 27.0-33.0 [facility] Comment on above: Performed By: #### 1 230, 6399 #### [facility] of [place] [address] Design Project Manager: Murray Sprague MD MCHC (RBC) [Mass/Vol] 31.1 g/dL Low 32.0-36.[address] [facility] Comment on above: Result Comment: For adults, a slight decrease in the calculated MCHC value (in the range of 30 to 32 g/dL) is most likely not clinically significant; however, it should be interpreted with caution in correlation with other red cell parameters and the patient's clinical condition. Performed By: #### 1 230, 6399 #### [facility] of [place] [address] Design Project Manager: Murray Sprague MD MCV (RBC) [Entitic vol] 78.4 fL Low 80.0-100.0 [facility] Comment on above: Performed By: #### 1 230, 6399 #### [facility] [place] [address] Design Project Manager: Murray Sprague MD Monocytes (Bld) [#/Vol] 0.634 10*3/uL Normal 200-950 [facility] Comment on above: Performed By: #### 1 023, 6399 #### [facility] [place] [address] Design Project Manager: Murray Sprague MD Monocytes/100 WBC (Bld) 12.2 % Normal [facility] Comment on above: Performed By: #### 1 023, 6399 #### [facility] of [address] [place] [address] Design Project Manager: Murray Sprague MD Neutrophils (Bld) [#/Vol] 3.364 10*3/uL Normal 3899-2652 [facility] Comment on above: Performed By: #### 1 0231, 6399 #### [facility] of [address], [address] [place] [address] Design Project Manager: Murray Sprague MD Neutrophils/100 WBC (Bld) 64.7 % Normal [facility] Comment on above: Performed By: #### 1 0231, 6399 #### [facility] of [address], [address] [place] [address] Design Project Manager: Murray Sprague MD Platelet mean volume (Bld) [Entitic vol] 11.1 fL Normal 7.5-12.5 [facility] Comment on above: Performed By: #### 1 1, 6399 #### [facility] of [address], [address] [place] [address] Design Project Manager: Murray Sprague MD Platelets (Bld) [#/Vol] 171 10*3/uL Normal 140-400 [facility] Comment on above: Performed By: #### 1 0231, 6399 #### [facility] of [address], [address] [place] [address] Design Project Manager: Murray Sprague MD RBC (Bld) [#/Vol] 5.33 10*6/uL Normal 4.20-5.80 [facility] Comment on above: Performed By: #### 1 0231, 6399 #### [facility] of [address], [address] [place] [address] Design Project Manager: Murray Sprague MD WBC (Bld) [#/Vol] 5.2 10*3/uL Normal 3.8-10.8 [facility] Comment on above: Performed By: #### 1 230, 6399 #### [facility] of [address], [address] [place] [address] Design Project Manager: Murray Sprague MD CBC W Auto Differential pane l (Bld)on 04-30-2024 Basophils (Bld) [#/Vol] 52 10*3/uL [facility] Basophils/100 WBC (Bld) 1 % [facility] Eosinophils (Bld) [#/Vol] 99 10*3/uL [facility] Eosinophils/100 WBC (Bld) 1.9 % [facility] Erythrocyte distribution width (RBC) [Ratio] 16.9 % High 11.0 - 15.0 % [facility] Hematocrit (Bld) [Volume fraction] 41.8 % 38.5 - 50.0 % [facility] Hemoglobin (Bld) [Mass/Vol] 13 g/dL Low 13.2 - 17.1 g/dL [facility] Lymphocytes (Bld) [#/Vol] 1050 10*3/uL [facility] Lymphocytes/100 WBC (Bld) 20.2 % [facility] MCH (RBC) [Entitic mass] 24.4 pg Low 27.0 - 33.0 pg [facility] MCHC (RBC) [Mass/Vol] 31.1 g/dL Low 32.0 - 36.0 g/dL [facility] Comment on above: For adults, a slight decrease in the calculated MCHC value (in the range of 30 to 32 g/dL) is most likely not clinically significant; however, it should be interpreted with caution in correlation with other red cell parameters and the patient's clinical condition. MCV (RBC) [Entitic vol] 78.4 fL Low 80.0 - 100.0 fL [facility] Monocytes (Bld) [#/Vol] 634 10*3/uL [facility] Monocytes/100 WBC (Bld) 12.2 % [facility] Neutrophils (Bld) [#/Vol] 3364 10*3/uL [facility] Neutrophils/100 WBC (Bld) 64.7 % [facility] Platelet mean volume (Bld) [Entitic vol] 11.1 fL 7.5 - 12.5 fL [facility] Platelets (Bld) [#/Vol] 171 10*3/uL [facility] RBC (Bld) [#/Vol] 5.33 10*6/uL [facility] WBC (Bld) [#/Vol] 5.2 10*3/uL [facility] COMPREHENSIVE METABOLIC PANE Robert 04-30-2024 Albumin [Mass/Vol] 4.0 g/dL Normal 3.6-5.1 [facility] Comment on above: Performed By: #### 1 0231, 6399 #### [facility] of [address], [address] [place] [address] Design Project Manager: Murray Sprague MD Albumin/Globulin [Mass ratio] 1.8 {ratio} Normal 1.0-2.5 [facility] Comment on above: Performed By: #### 1 0231, 6399 #### [facility] of [address], [address] [place] [address] Design Project Manager: Murray Sprague MD ALP [Catalytic activity/Vol] 70 U/L Normal 35-144 [facility] Comment on above: Performed By: #### 1 0231, 6399 #### [facility] [address], [address] [place] [address] Design Project Manager: Murray Sprague MD ALT [Catalytic activity/Vol] 17 U/L Normal 9-46 [facility] Comment on above: Performed By: #### 1 023, 6399 #### [facility] of [address], [address] [place] [address] Design Project Manager: Murray Sprague MD AST [Catalytic activity/Vol] 16 U/L Normal 10-35 [facility] Comment on above: Performed By: #### 1 0231, 6399 #### [facility] of [address], [address] [place] [address] Design Project Manager: Murray Sprague MD Bilirubin [Mass/Vol] 0.6 mg/dL Normal 0.2-1.2 [facility] Comment on above: Performed By: #### 1 0231, 6399 #### [facility] of [place] [address] Design Project Manager: Murray Sprague MD BUN/CREATININE RATIO SEE NOTE: Normal 6-22 [facility] Comment on above: Result Comment: Not Reported: BUN and Creatinine are within reference range. Performed By: #### 1 0231, 6399 #### [facility] of [address], [address] [place] [address] Design Project Manager: Murray Sprague MD Calcium [Mass/Vol] 9.0 mg/dL Normal 8.6-10.3 [facility] Comment on above: Performed By: #### 1 0231, 6399 #### [facility] of [address], [address] [place] [address] Design Project Manager: Murray Sprague MD Chloride [Moles/Vol] 103 mmol/L Normal 98-110 [facility] Comment on above: Performed By: #### 1 0231, 6399 #### [facility] of [address], [address] [place] [address] Design Project Manager: Murray Sprague MD CO2 [Moles/Vol] 29 mmol/L Normal 20-32 [facility] Comment on above: Performed By: #### 1 0231, 6399 #### [facility] of [address], [address] [place] [address] Design Project Manager: Murray Sprague MD Creatinine [Mass/Vol] 1.17 mg/dL Normal 0.70-1.[address] [facility] Comment on above: Performed By: #### 1 0231, 6399 #### [facility] of [address], [address] [place] [address] Design Project Manager: Murray Sprague MD GFR/1.73 sq M.predicted among non-blacks MDRD (S/P/Bld) [Vol rate/Area] 63 mL/min/{1.73_m2} Normal > OR = 60 [facility] Comment on above: Performed By: #### 1 0231, 6399 #### [facility] of [place] [address] Design Project Manager: Murray Sprague MD Globulin (S) [Mass/Vol] 2.2 g/dL Normal 1.9-3.7 [facility] Comment on above: Performed By: #### 1 0231, 6399 #### [facility] of [address], [address] [place], [place] [address] Design Project Manager: Murray Sprague MD Glucose [Mass/Vol] 149 mg/dL High 65-99 [facility] Comment on above: Result Comment: Fasting reference interval For someone without known diabetes, a glucose value >125 mg/dL indicates that they may have diabetes and this should be confirmed with a follow-up test. Performed By: #### 1 0231, 6399 #### [facility] [address], [address] [place] [address] Design Project Manager: Murray Sprague MD Potassium [Moles/Vol] 3.9 mmol/L Normal 3.5-5.3 [facility] Comment on above: Performed By: #### 1 0231, 6399 #### [facility] [place] [address] Design Project Manager: Murray Sprague MD Protein [Mass/Vol] 6.2 g/dL Normal 6.1-8.1 [facility] Comment on above: Performed By: #### 1 0231, 6399 #### [facility] [place] [address] Design Project Manager: Murray Sprague MD Sodium [Moles/Vol] 140 mmol/L Normal 135-146 [facility] Comment on above: Performed By: #### 1 0231, 6399 #### [facility] [place] [address] Design Project Manager: Murray Sprague MD Urea nitrogen [Mass/Vol] 12 mg/dL Normal 7-25 [facility] Comment on above: Performed By: #### 1 0231, 6399 #### [facility] [place] [address] Design Project Manager: Murray Sprague MD Laboratory - Chemistry and C hemistry - challengeon 04-30-2024 Albumin [Mass/Vol] 4 g/dL 3.6 - 5.1 g/dL [facility] Albumin/Globulin [Mass ratio] 1.8 {ratio} [facility] ALP [Catalytic activity/Vol] 70 U/L 35 - 144 U/L [facility] ALT [Catalytic activity/Vol] 17 U/L 9 - 46 U/L [facility] AST [Catalytic activity/Vol] 16 U/L 10 - 35 U/L [facility] Bilirubin [Mass/Vol] 0.6 mg/dL 0.2 - 1 .2 mg/dL [facility] Calcium [Mass/Vol] 9 mg/dL 8.6 - 10. 3 mg/dL [facility] Chloride [Moles/Vol] 103 mmol/L 98 - 11 0 mmol/L [facility] CO2 [Moles/Vol] 29 mmol/L 20 - 32 mmol/L [facility] Creatinine [Mass/Vol] 1.17 mg/dL 0.70 - 1.22 mg/dL [facility] GFR/1.73 sq M.predicted among non-blacks MDRD (S/P/Bld) [Vol rate/Area] 63 mL/min/{1.73_m2} > OR = 60 mL/min/1.7 3m2 [facility] Globulin (S) [Mass/Vol] 2.2 g/dL [facility] Glucose [Mass/Vol] 149 mg/dL High 65 - 99 mg/dL [facility] Comment on above: Fasting reference interval For someone without known diabetes, a glucose value >125 mg/dL indicates that they may have diabetes and this should be confirmed with a follow-up test. Potassium [Moles/Vol] 3.9 mmol/L 3.5 - 5.3 mmol/L [facility] Protein [Mass/Vol] 6.2 g/dL 6.1 - 8.1 g/dL [facility] Sodium [Moles/Vol] 140 mmol/L 135 - 146 mmol/L [facility] Urea nitrogen [Mass/Vol] 12 mg/dL 7 - 25 mg/dL [facility] Urea nitrogen/Creatinine [Mass ratio] SEE NOTE: [facility] Comment on above: Not Reported: BUN an d Creatinine are within reference range. No Panel Informationon 04-30 Interpretation and review of laboratory results Abnormal [facility] Performing Organizat ion Information Site ID: [id number] Name: [facility] Address: [address] [place] [address], [address] [place] [id number] Director: Murray Sprague MD [facility] Laboratory - Cytologyon 04-09 Microscopic observation Cyto stain Nom (Cvx) 4.2 [facility] No Panel Informationon 04-29 [facility] Laboratory - Cytologyon 03-08 Microscopic observation Cyto stain Nom (Cvx) 3.3 [facility] No Panel Informationon 03-18 [facility] Laboratory - Cytologyon - Microscopic observation Cyto stain Nom (Cvx) 1.7 [facility] No Panel Informationon 02-28 Interpretation and review of laboratory results Abnormal [facility] Laboratory - Cytologyon 02-06 Microscopic observation Cyto stain Nom (Cvx) 1.4 [facility] No Panel Informationon 02-16 [facility] Outside Recordson 02-11-2024 Outside Records [id number]#1.00OTGTIF [facility] Release of Informationon Release of Information [id number]#1.00OTGTIFF [facility] Outside Recordson 01-25-2024 Outside Records [id number]#1.[facility] Capillary blood glucose candelaria urement by glucometer (mass/volume)Ordered By: Nadiya Hagan on 12-23-2023 Glucose [Mass/Vol] 90 mg/dL Normal [facility] Comment on above: Random Glucose Refer ence Range is dependent on time and content of last meal. Glucose of more than 200 mg/dL in a nonstressed, ambulatory subject supports the diagnosis of Diabetes Mellitus. Result Comment: [facility] Glucose Reference Range is dependent on time and content of last meal. Glucose of more than 200 mg/dL in a nonstressed, ambulatory subject supports the diagnosis of Diabetes Mellitus. PERFORMED BY: [facility] [address] [place] [address] PATHOLOGIST APPLICATION DESIGNER ADAN GIRALDO M.D. Performed By: #### G LUDONTAE #### Point of Care testing , INR in Platelet poor plasma by Coagulation assayOrdered By: Marino Acuña on 12-23-2023 INR Coag (PPP) [Relative time] 2.2 {INR} Normal [facility] Comment on above: INR Therapeutic Rang e A) Pre- and Peroperative OAT started two weeks before surgery. NOT HIP SURGERY: 1.5 - 2.5 HIP SURGERY: 2 - 3B) Primary and secondary prevention of venous THROMBOSIS: 2 - 3C) Active venous thrombosis, pulmonary embolismand prevention of recurrent venous thrombosis: 2 - 3D) Prevention of arterial thromboembolismincluding patients with mechanical heart valves: 3 - 4.5 Result Comment: INR Therapeutic Range A) Pre- and Peroperative OAT started two weeks before surgery. NOT HIP SURGERY: 1.5 - 2.5 HIP SURGERY: 2 - 3 B) Primary and secondary prevention of venous THROMBOSIS: 2 - 3 C) Active venous thrombosis, pulmonary embolism and prevention of recurrent venous thrombosis: 2 - 3 D) Prevention of arterial thromboembolism including patients with mechanical heart valves: 3 - 4.5 PERFORMED BY: [place] [address] PATHOLOGIST APPLICATION DESIGNER ADAN GIRALDO M.D. Performed By: #### C BC, CMP #### [facility] [address] [place] [address] [facility] Outside Recordson 12-23-2023 Outside Records [id number]#1.00OTGTIFF Normal [facility] Prothrombin time (PT)Ordered By: Marino Acuña on 12-23-2023 PT Coag (PPP) [Time] 25.3 s High 9.0-12.9 [facility] Comment on above: A hematocrit value g reater than 55% may lead to inaccurate results in coagulation testing. Patients having hematocrit values >55% require a special collection tube for coagulation studies. Please contact the laboratory at [phone] for redraw instructions. Result Comment: A he matocrit value greater than 55% may lead to inaccurate results in coagulation testing. Patients having hematocrit values >55% require a special collection tube for coagulation studies. Please contact the laboratory at [phone] for redraw instructions. Performed By: #### C BC, CMP #### [facility] [address] [place] [address] [facility] Cholesterol [Mass/volume] in Serum or PlasmaOrdered By: Nadiya Hagan on 12-22-2023 Cholesterol [Mass/Vol] 148 mg/dL Normal 140-200 [facility] Comment on above: Chol less than 200 m g/dl low riskChol 201-239 mg/dl borderline riskChol 240 mg/dl and greater high risk Order Comment: CINTHIA MARVIN Y Result Comment: Chol less than 200 mg/dl low risk Chol 201-239 mg/dl borderline risk Chol 240 mg/dl and greater high risk Performed By: #### C BC, CMP #### [facility] [address] Cholesterol in LDL Calc [Mas s/Vol]Ordered By: Nadiya Hagan on 12-22-2023 Cholesterol in LDL [Mass/Vol] 89 mg/dL 0-100 [facility] Comment on above: LDL ATP III CLASSIFI CATIONLDL less than 100 mg/dL OptimalLDL 100-129 mg/dL Near or above optimalLDL 130-159 mg/dL Borderline highLDL 160-189 mg/dL HighLDL greater than 189 mg/dL Very high Cholesterol in VLDL Calc [Ma ss/Vol]Ordered By: Nadiya Hagan on 12-22-2023 Cholesterol in VLDL [Mass/Vol] 18 mg/dL [facility] ECH echo transthoracicon ECH echo transthoracic [facility] [employer] [address] [place] [address] Echocardiogram Signed Patient: Emigdio Jeong III MR#: [id number] : 1940 Acct:[id number] Age/Sex: 83 / M ADM Date: 12/17/23 Loc: Room: [address] [place] [address] Type: ADM IN Attending Dr: Nadiya Hagan MD Ordering Provider: Nadiya Hagan MD Date of Service: 12/21/23 ECH/ECH echo transthoracic: Old CVA Copies to: MD Fletcher Celaya MD Height: 72 in Weight: 226 lb Performed By: KONG Lyle BSA: 2.2 m2 HR: 71 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 Fib.,Former smoker Interpretation Summary Mild to moderate concentric left ventricular hypertrophy. Ejection Fraction = 55-60%. There is left ventricular diastolic dysfunction. The left atrium appears moderately dilated. Mild valvular aortic stenosis. There is trace mitral regurgitation. There is trace tricuspid regurgitation. Procedure/Quality: A two-dimensional transthoracic echocardiogram with color flow, Doppler and injection of contrast agent Definity was performed. The study was technically good in quality. Left Ventricle: The left ventricular size is normal. Mild to moderate concentric left ventricular hypertrophy. Ejection Fraction = 55-60%. There is left ventricular diastolic dysfunction. No left ventricular thrombus or mass is seen. Left Atrium: The left atrium appears moderately dilated. The atrial septum appears normal. Right Atrium: The right atrium appears normal in size. Right Ventricle: The right ventricular size, thickness and function are normal. Aortic Valve: The aortic valve is moderately calcified. Mild valvular aortic stenosis. Mitral Valve: The mitral valve is moderately sclerotic. There is mild to moderate mitral annular calcification. There is trace mitral regurgitation. Tricuspid Valve: The tricuspid valve is normal in structure. There is trace tricuspid regurgitation. Pulmonic Valve: The pulmonic valve is not well visualized. Mild pulmonic valvular regurgitation. Arteries: There is mild to moderate aortic root calcification. Mildly dilated ascending aorta. Pericardium/Pleura: No pericardial effusion seen. There is no pleural effusion. IVC/Hepatic Veins: The inferior vena cava is normal in size, with a normal collapsibility index. Measurements with Normals IVSd: 1.3 cm (0.7-1.1 cm)LVIDd: 4.9 cm (3.7-5.4 cm) LVPWd: 1.3 cm (0.7-1.1 cm)LVIDs: 2.7 cm (2.3-3.6 cm) LA dimension: 5.0 cm (2.3-4.0 cm)Ao root diam: 3.5 cm(2.0-3.6 cm) asc Aorta Diam: 3.7 cm(2.1-3.4cm) Doppler with Normals RVSP(TR): 32.7 mmHg (18-35mmHg) LV V1 max: 91.2 cm/sec (0.7-1.7m/s)MV E max kemar: 155.0 cm/sec(0.8-1.3m/s) MV A max kemar: 49.0 cm/sec(0.0-0.0m/s) MV E/A: 3.2 (<1.5) MMode/2D Measurements Calculations RVDd: 4.0 cm FS: 45.1 % Ao root area: LVOT diam: 2.0 cm TAPSE: 2.5 cm EDV(Teich): 9.4 cm2 LVOT area: 3.0 cm2 RV S Kemar: 113.1 ml 14.8 cm/sec ESV(Teich): 26.8 ml EF(Teich): 76.3 % __ LVLd ap4: 8.3 cm SV(MOD-sp4): LAV(MOD-sp4): LA A2 area: 29.8 cm2 EDV(MOD-sp4): 47.0 ml 149.0 ml 81.7 ml LAV(MOD-sp2): LA A4 area: 40.0 cm2 LVLs ap4: 7.5 cm 96.4 ml LA length (vol): ESV(MOD-sp4): 8.2 cm 34.7 ml LA vol: 122.8 ml EF(MOD-sp4): 57.5 % LA vol index: 54.7 ml/m2 Doppler Measurements Calculations MV dec time: MV max PG: E/E' lat: 13.2 MV dec slope: 0.19 sec 68.0 mmHg E/E' med: 17.2 803.3 cm/sec2 __ Ao V2 max: LV V1 max PG: MR max kemar: TV max P.0 mmHg 227.0 cm/sec 3.3 mmHg 411.9 cm/sec Ao max PG: LV V1 mean PG: MR max P.6 mmHg 1.6 mmHg 68.9 mmHg Ao mean PG: LV V1 mean: 12.9 mmHg 57.5 cm/sec Ao V2 mean: LV V1 VTI: 18.7 cm 172.5 cm/sec Ao V2 VTI: 44.2 cm DOC(I,D): 1.3 cm2 DOC(V,D): 1.2 cm2 __ TR max kemar: 263.3 cm/sec TR max P.7 mmHg RAP systole: 5.0 mmHg Transcribed By: SULMA Performed At: 12/22/23 1509 Signed By: Fletcher Ziegler MD 12/22/23 1658 Normal [facility] Lipid Panelon 12-22-2023 LDL Cholesterol,Calculate d 89 mg/dL Normal 0-100 [facility] Comment on above: Order Comment: FASTI YON Huffman Result Comment: LDL ATP III CLASSIFICATION LDL less than 100 mg/dL Optimal LDL 100-129 mg/dL Near or above optimal LDL 130-159 mg/dL Borderline high LDL 160-189 mg/dL High LDL greater than 189 mg/dL Very high Performed By: #### C SHARON, CMP #### [address] Triglyceride w/Reflex 91 mg/dL Normal 0-149 [facility] Comment on above: Order Comment: BALI YON Y Result Comment: TRIG ATP III CLASSIFICATION TRIG less than 150 mg/dL Normal TRIG 150-199 mg/dL Borderline high TRIG 200-500 mg/dL High TRIG greater than 500 mg/dL Very high Standard traceable to the Center for Disease Conrtrol and Prevention (CDC) test method. Performed By: #### C SHARON, CMP #### [address] VLDL CHOLESTEROL 18 mg/dL Normal [facility] Comment on above: Order Comment: CINTHIA Huffman Performed By: #### C SHARON, CMP #### [facility] [address] [place] [id number] [facility] Prothrombin Time INRon 12-21 INR Coag (PPP) [Relative time] 2.4 {INR} Normal [facility] Comment on above: Result Comment: INR Therapeutic Range A) Pre- and Peroperative OAT started two weeks before surgery. NOT HIP SURGERY: 1.5 - 2.5 HIP SURGERY: 2 - 3 B) Primary and secondary prevention of venous THROMBOSIS: 2 - 3 C) Active venous thrombosis, pulmonary embolism and prevention of recurrent venous thrombosis: 2 - 3 D) Prevention of arterial thromboembolism including patients with mechanical heart valves: 3 - 4.5 PERFORMED BY: [place] [address] PATHOLOGIST APPLICATION DESIGNER ADAN GIRALDO M.D. Performed By: #### C BC, CMP #### [place] [id number] [facility] PT Coag (PPP) [Time] 27.6 s High 9.0-12.9 [facility] Comment on above: Result Comment: A he matocrit value greater than 55% may lead to inaccurate results in coagulation testing. Patients having hematocrit values >55% require a special collection tube for coagulation studies. Please contact the laboratory at [phone] for redraw instructions. Performed By: #### C BC, CMP #### [address] Serum or plasma high density lipoprotein (HDL) cholesterol measurementOrdered By: Nadiya Hagan on 12-22-2023 Cholesterol in HDL [Mass/Vol] 41 mg/dL Normal 23-92 [facility] Comment on above: HDL CHOL ATP-III CLA SSIFICATION Cardiovascular RiskHDL > or equal to 60 mg/dL LOWHDL < 40 mg/dL HIGH Order Comment: CINTHIA Huffman Result Comment: HDL CHOL ATP-III CLASSIFICATION Cardiovascular Risk HDL > or equal to 60 mg/dL LOW HDL < 40 mg/dL HIGH Performed By: #### C BC, CMP #### [address] Serum or plasma total choles terol/high density lipoprotein (HDL) cholesterol mass ratOrdered By: Nadiya Hagan on 12-22-2023 Cholesterol.total/Cho lesterol in HDL [Mass ratio] 3.6 {ratio} Normal <5.0 [facility] Comment on above: Order Comment: CINTHIA Huffman Result Comment: PERF ORMED BY: [place] [address] PATHOLOGIST APPLICATION DESIGNER ADAN GIRALDO M.D. Performed By: #### C BC, CMP #### [place] [id number] [facility] Triglyceride [Mass/volume] i n Serum or PlasmaOrdered By: Nadiya Hagan on 12-22-2023 Triglyceride [Mass/Vol] 91 mg/dL 0-149 [facility] Comment on above: TRIG ATP III CLASSIF ICATIONTRIG less than 150 mg/dL NormalTRIG 150-199 mg/dL Borderline highTRIG 200-500 mg/dL High TRIG greater than 500 mg/dL Very highStandard traceable to the Center for Disease Conrtrol and Prevention (CDC) test method. US carotid doppler BIon 12-06 US carotid doppler BI [facility] [employer] [address] [place] [address] Ultrasound Report Signed Patient: Emigdio Jeong III MR#: [id number] : 1940 Acct:[id number] Age/Sex: 83 / M ADM Date: 12/17/23 Loc: Room: [address] [place] [address] Type: ADM IN Attending Dr: Nadiya Hagan MD Ordering Provider: Nadiya Hagan MD Date of Service: 12/21/23 US/US carotid doppler BI: Old CVA Copies to: Nadiya Hagan MD CAROTID DUPLEX INDICATION: Carotid bruit PROCEDURE: Color-flow duplex scanning is used to interrogate the extracranial carotid arterial system, as well as both vertebral arteries. The proximal right internal carotid artery shows a highest peak systolic velocity of 55.7 cm/s with an end-diastolic velocity of 14.4 cm/s . The mid internal carotid artery measures 64.3 cm/s peak systolic with an end-diastolic velocity of 13.3 cm/s . The distal segment measures 70.2 cm/s peak systolic with an end diastolic velocity of 25.1 cm/s . The velocities of the right common carotid artery are 73.3 cm/s peak systolic and 13 cm/s end- diastolic proximally and 60.9 cm/s peak systolic and 13.7 cm/s end-diastolic distally. The peak systolic velocity ratio of the internal to the common carotid artery is 1.15 . The right external carotid artery measures 90.7 cm/s peak systolic. The right vertebral artery is patent at 57.8 cm/s peak systolic and with antegrade flow. The proximal left internal carotid artery shows a highest peak systolic velocity of 58 cm/s with an end-diastolic velocity of 11.4 cm/s . The mid internal carotid artery measures 78.1 cm/s peak systolic with an end-diastolic velocity of 18.9 cm/s . The distal segment measures 74.1 cm/s peak systolic with an end diastolic velocity of 19.1 cm/s . The velocities of the left common carotid artery are 56.1 cm/s peak systolic and 13.7 cm/s end-diastolic proximally and 78.5 cm/s peak systolic and 17.6 cm/s end-diastolic distally. The peak systolic velocity ratio of the internal to the common carotid artery is 0.99 . The left external carotid artery measures 106 cm/s peak systolic. The left vertebral artery is patent at 37.6 cm/s peak systolic with antegrade flow. US/US carotid doppler BI IMPRESSION: NO HEMODYNAMICALLY SIGNIFICANT STENOSIS OF EITHER EXTRACRANIAL INTERNAL CAROTID ARTERY. BOTH VERTEBRAL ARTERIES ARE PATENT WITH ANTEGRADE FLOW. Impression dictated by: Malik Wright MD12/22/2023 8:25 AM Dictation Location: [facility]-04 Tech: Maura Segura Transcribed By: [facility] 12/22/23824 Dictated By: Malik Wright MD 12/22/23824 Signed By: 12/22/23824 Normal [facility] Erythrocyte Sedimentation Ra leny 12-21-2023 ESR (Bld) [Velocity] 22 mm/h High 0-19 [facility] Comment on above: Order Comment: PT DO SE NOT HAVE WRIST BAND RN TO GET ONE WILL DRAW AFTRE THEY GET ONE [id number] Result Comment: PERF ORMED BY: [place] [address] PATHOLOGIST APPLICATION DESIGNER ADAN GIRALDO M.D. Performed By: #### C BC, CMP #### [address] Erythrocyte sedimentation ra te by Photometric methodOrdered By: Nadiya Hagan on 12-21-2023 ESR Photometric method (Bld) [Velocity] 22 mm/hr High 0-19 [facility] Outside Recordson 07-15-2024 Outside Records [id number]#1.00OTGTIFF Normal [facility] Outside Records [id number]#1.00OTGTIFF Normal [facility] Outside Records [id number]#1.00OTGTIFF Normal [facility] Prothrombin Time INRon 12-20 INR Coag (PPP) [Relative time] 2.8 {INR} Normal [facility] Comment on above: Result Comment: INR Therapeutic Range A) Pre- and Peroperative OAT started two weeks before surgery. NOT HIP SURGERY: 1.5 - 2.5 HIP SURGERY: 2 - 3 B) Primary and secondary prevention of venous THROMBOSIS: 2 - 3 C) Active venous thrombosis, pulmonary embolism and prevention of recurrent venous thrombosis: 2 - 3 D) Prevention of arterial thromboembolism including patients with mechanical heart valves: 3 - 4.5 PERFORMED BY: [address] [place] [address] PATHOLOGIST APPLICATION DESIGNER ADAN GIRALDO M.D. Performed By: #### G LULS #### Point of Care testing , PT Coag (PPP) [Time] 31.3 s High 9.0-12.9 [facility] Comment on above: Result Comment: A he matocrit value greater than 55% may lead to inaccurate results in coagulation testing. Patients having hematocrit values >55% require a special collection tube for coagulation studies. Please contact the laboratory at [phone] for redraw instructions. Performed By: #### G LULS #### Point of Care testing , RPR w/rfx to Quant TP Abson 12-21-2023 RPR, Rfx Quant RPR Non-Reactive Normal Non Reactive [facility] Comment on above: Order Comment: PT DO SE NOT HAVE WRIST BAND RN TO GET ONE WILL DRAW AFTRE THEY GET ONE [id number] Result Comment: Perf ormed at: CB - [facility] [address] [id number] Clinical Practice Consultant: Young Parisi PhD, Phone: [phone] PERFORMED BY: [place] [address] PATHOLOGIST APPLICATION DESIGNER ADAN GIRALDO M.D. Performed By: #### C BC, CMP #### [place] [address] [place] Reagin Ab [Presence] in Seru m by RPROrdered By: Nadiya Hagan on 12-21-2023 Reagin Ab RPR Ql (S) Non-Reactive Non Reactive [facility] Comment on above: Performed at: - [facility] [address] [id number] Director: Young Parisi PhD, Phone: [phone] Prothrombin Time INRon 12-19 INR Coag (PPP) [Relative time] 3.2 {INR} Normal [facility] Comment on above: Result Comment: INR Therapeutic Range A) Pre- and Peroperative OAT started two weeks before surgery. NOT HIP SURGERY: 1.5 - 2.5 HIP SURGERY: 2 - 3 B) Primary and secondary prevention of venous THROMBOSIS: 2 - 3 C) Active venous thrombosis, pulmonary embolism and prevention of recurrent venous thrombosis: 2 - 3 D) Prevention of arterial thromboembolism including patients with mechanical heart valves: 3 - 4.5 PERFORMED BY: [place] [address] PATHOLOGIST APPLICATION DESIGNER ADAN GIRALDO M.D. Performed By: #### P T #### [address] [facility] PT Coag (PPP) [Time] 35.9 s High 9.0-12.9 [facility] Comment on above: Result Comment: A he matocrit value greater than 55% may lead to inaccurate results in coagulation testing. Patients having hematocrit values >55% require a special collection tube for coagulation studies. Please contact the laboratory at [phone] for redraw instructions. Performed By: #### P T #### [address] [address] [place] ECG 12 lead ECGon 12-19-2023 ECG 12 lead ECG [facility] [employer] [address] [place], [place] [id number] Electrocardiograph Report Signed Patient: Emigdio Jeong III MR#: [id number] : 1940 Acct:[id number] Age/Sex: 83 / M ADM Date: 12/17/23 Loc: 3T Room: [address] [place] [address] Type: ADM IN Attending Dr: Marino Acuña MD Ordering Provider: Hammad Tena DO Date of Service: 12/19/23 ECG/ECG 12 lead ECG: monitor QT interval Copies to: Test Reason : Blood Pressure : */* mmHG Vent. Rate : 72 BPM Atrial Rate : * BPM P-R Int : * ms QRS Dur : 110 ms QT Int : 416 ms P-R-T Axes : * 60 47 degrees QTcB Int : 455 ms Atrial fibrillation Incomplete right bundle branch block Cannot rule out Anterior infarct , age undetermined Abnormal ECG No previous ECGs available Confirmed by BILLY BROWNE [facility] ([id number] on 12/19/2023 1:30:20 PM Referred By: Electronically Signed By: SKYLER ZIEGLER MD [facility] Transcribed By: MUS Signed By Fletcher Ziegler MD 12/19/23 1330 Normal [facility] Prothrombin Time INRon 12-18 INR Coag (PPP) [Relative time] 3.1 {INR} Normal [facility] Comment on above: Result Comment: INR Therapeutic Range A) Pre- and Peroperative OAT started two weeks before surgery. NOT HIP SURGERY: 1.5 - 2.5 HIP SURGERY: 2 - 3 B) Primary and secondary prevention of venous THROMBOSIS: 2 - 3 C) Active venous thrombosis, pulmonary embolism and prevention of recurrent venous thrombosis: 2 - 3 D) Prevention of arterial thromboembolism including patients with mechanical heart valves: 3 - 4.5 PERFORMED BY: [place] [address] [place] [address] PATHOLOGIST APPLICATION DESIGNER ADAN GIRALDO M.D. Performed By: #### G LUDONTAE #### Point of Care testing , PT Coag (PPP) [Time] 35.0 s High 9.0-12.9 [facility] Comment on above: Result Comment: A he matocrit value greater than 55% may lead to inaccurate results in coagulation testing. Patients having hematocrit values >55% require a special collection tube for coagulation studies. Please contact the laboratory at [phone] for redraw instructions. Performed By: #### G LONNIE #### Point of Care testing , Alanine aminotransferase [En zymatic activity/volume] in Serum or PlasmaOrdered By: Obaydah Daromar on 12-18-2023 ALT [Catalytic activity/Vol] 13 U/L Normal 7-52 [facility] Comment on above: Performed By: #### C BC, CMP #### [place] [address] [place] Albumin [Mass/volume] in Ser um or Plasma by Bromocresol green (BCG) dye binding methoOrdered By: Obaydah Daromar on 12-18-2023 Albumin BCG dye [Mass/Vol] 3.8 g/dL 3.5-5.7 [facility] Alkaline phosphatase [Enzyma tic activity/volume] in Serum or PlasmaOrdered By: Obaydah Daromar on 12-18-2023 ALP [Catalytic activity/Vol] 63 U/L Normal 34-104 [facility] Comment on above: Performed By: #### C SHARON, CMP #### [place] [address] [place] Aspartate aminotransferase [ Enzymatic activity/volume] in Serum or PlasmaOrdered By: Obaydah Daromar on 12-18-2023 AST [Catalytic activity/Vol] 19 U/L Normal 13-39 [facility] Comment on above: Performed By: #### C BC, CMP #### [place] [address] [place] Automated basophil %Ordered By: Obpadilladah Daromar on 12-18-2023 Basophils/100 WBC (Bld) 1.1 % Normal . [facility] Comment on above: Performed By: #### C BC, CMP #### [place] [address] [place] Automated basophil countOrde red By: Obaydah Daromar on 12-18-2023 Basophils (Bld) [#/Vol] 0.0 10*3/uL Normal 0.0-0.2 [facility] Comment on above: Result Comment: PERF ORMED BY: [place] [address] PATHOLOGIST APPLICATION DESIGNER ADAN GIRALDO M.D. Performed By: #### C BC, CMP #### [address] Automated blood monocyte cou ntOrdered By: Obaydah Daromar on 12-18-2023 Monocytes (Bld) [#/Vol] 0.6 10*3/uL Normal 0.0-0.8 [facility] Comment on above: Performed By: #### C BC, CMP #### [address] Automated eosinophil %Ordere d By: Obaydah Daromar on 12-18-2023 Eosinophils/100 WBC (Bld) 2.8 % Normal . [facility] Comment on above: Performed By: #### C BC, CMP #### [address] Automated eosinophil countOr dered By: Obaydah Daromar on 12-18-2023 Eosinophils (Bld) [#/Vol] 0.1 10*3/uL Normal 0.0-0.45 [facility] Comment on above: Performed By: #### C BC, CMP #### [address] Automated monocyte %Ordered By: Obaydah Daromar on 12-18-2023 Monocytes/100 WBC (Bld) 14.3 % Normal . [facility] Comment on above: Performed By: #### C BC, CMP #### [address] Automated neutrophil %Ordere d By: Obaydah Daromar on 12-18-2023 Neutrophils/100 WBC (Bld) 59.8 % Normal . [facility] Comment on above: Performed By: #### C BC, CMP #### [place] [address] [place] Bilirubin.total [Mass/volume ] in Serum or PlasmaOrdered By: Obaydah Daromar on 12-18-2023 Bilirubin [Mass/Vol] 0.7 mg/dL Normal 0.3-1.0 [facility] Comment on above: Performed By: #### C BC, CMP #### [address] Calcium [Mass/volume] in Ser um or PlasmaOrdered By: Obaydah Daromar on 12-18-2023 Calcium [Mass/Vol] 8.2 mg/dL Low 8.6-10.3 [facility] Comment on above: Performed By: #### C BC, CMP #### [address] Carbon dioxide, total [Moles /volume] in Serum or PlasmaOrdered By: Obaydah Daromar on 12-18-2023 CO2 [Moles/Vol] 25.8 mmol/L Normal 21.0-31.[address] [facility] Comment on above: Performed By: #### C BC, CMP #### [address] Chloride [Moles/volume] in S arline or PlasmaOrdered By: Obaydah Daromar on 12-18-2023 Chloride [Moles/Vol] 107 mmol/L Normal 98-107 [facility] Comment on above: Performed By: #### C BC, CMP #### [address] Complete Blood Count Auto Di ffon 12-18-2023 Mean Corpuscular HGB Conc 32.5 g/dL Normal 32.5-35.6 [facility] Comment on above: Performed By: #### C BC, CMP #### [address] NRBC% 0.2 /100{WBC} Normal 0-0.5 [facility] Comment on above: Performed By: #### C BC, CMP #### [address] Comprehensive Metabolic Pane robert 12-18-2023 Albumin [Mass/Vol] 3.8 g/dL Normal 3.5-5.7 [facility] Comment on above: Performed By: #### C BC, CMP #### [address] Creatinine Clr Calc Pharmacy 63.72 Normal [facility] Comment on above: Performed By: #### C BC, CMP #### [place] [address] [place] GFR/1.73 sq M.predicted MDRD (S/P/Bld) [Vol rate/Area] mL/min/{1.73_m2} Normal [facility] Comment on above: Performed By: #### C BC, CMP #### [address] Creatinine [Mass/volume] in Serum or PlasmaOrdered By: Obaydah Daromar on 12-18-2023 Creatinine [Mass/Vol] 1.14 mg/dL Normal 0.70-1.30 [facility] Comment on above: Performed By: #### C BC, CMP #### [address] Erythrocyte distribution wid th [Ratio] by Automated countOrdered By: Obpadilladacharbel Daromar on 12-18-2023 Erythrocyte distribution width (RBC) [Ratio] 16.8 % High 12.0-14.8 [facility] Comment on above: Performed By: #### C BC, CMP #### [address] Erythrocytes [#/volume] in B lood by Automated countOrdered By: Obaydah Daromar on 12-18-2023 RBC (Bld) [#/Vol] 4.85 10*6/uL Normal 3.90-5.60 [facility] Comment on above: Performed By: #### C BC, CMP #### [place] [address] [place] Folate [Mass/volume] in Seru m or PlasmaOrdered By: Obaydah Daromar on 12-18-2023 Folate [Mass/Vol] 20.6 ng/mL >5.9 [facility] Comment on above: Folate reference ran ge: >5.9 ng/mlThe WHO technical consultation on folate and vitamin [id number] has determined that folate concentrations lessthan 4 ng/ml are considered deficient. Glucose [Mass/volume] in Ser um or PlasmaOrdered By: Marino Acuña on 12-18-2023 Glucose [Mass/Vol] 91 mg/dL Normal 70-100 [facility] Comment on above: ADA recommended refe rence rangeRandom Glucose Reference Range is dependent on time and content of last meal. Glucose of more than 200 mg/dL in a nonstressed, ambulatory subject supports the diagnosis of Diabetes Mellitus. Result Comment: [place] om Glucose Reference Range is dependent on time and content of last meal. Glucose of more than 200 mg/dL in a nonstressed, ambulatory subject supports the diagnosis of Diabetes Mellitus. ADA recommended reference range Performed By: #### C BC, CMP #### [address] Hematocrit [Volume Fraction] of Blood by Automated countOrdered By: Marino Barnesr on 12-18-2023 Hematocrit (Bld) [Volume fraction] 37.9 % Low 38.8-50.0 [facility] Comment on above: Performed By: #### C SHARON, CMP #### [address] Hemoglobin [Mass/volume] in BloodOrdered By: Marino Barnesr on 12-18-2023 Hemoglobin (Bld) [Mass/Vol] 12.3 g/dL Low 13.0-17.0 [facility] Comment on above: Performed By: #### C BC, CMP #### [address] Leukocytes [#/volume] correc svitlana for nucleated erythrocytes in Blood by Automated counOrdered By: Marino Marquezomar on 12-18-2023 WBC corrected for nucl RBC Auto (Bld) [#/Vol] 4.3 10*3/uL 4.1-10.5 [facility] Leukocytes [#/volume] in Blo od by Automated countOrdered By: Obaydah Daromar on 12-18-2023 WBC (Bld) [#/Vol] 4.3 10*3/uL Normal 4.1-10.5 [facility] Comment on above: Performed By: #### C BC, CMP #### [address] Lymphocytes [#/volume] in Bl ood by Automated countOrdered By: Obaydah Daromar on 12-18-2023 Lymphocytes (Bld) [#/Vol] 0.9 10*3/uL Low 1.00-4.8 [facility] Comment on above: Performed By: #### C BC, CMP #### [address] Lymphocytes/100 leukocytes i n Blood by Automated countOrdered By: Obaydah Daromar on 12-18-2023 Lymphocytes/100 WBC (Bld) 22.0 % Normal . [facility] Comment on above: Performed By: #### C BC, CMP #### [address] MCH [Entitic mass] by Automa svitlana countOrdered By: Obaydah Daromar on 12-18-2023 MCH (RBC) [Entitic mass] 25.4 pg Low 27.5-35.2 [facility] Comment on above: Performed By: #### C BC, CMP #### [address] MCHC Auto (RBC) [Mass/Vol]Or dered By: Obaydah Daromar on 12-18-2023 MCHC (RBC) [Mass/Vol] 32.5 g/dL 32.5-35.6 [facility] MCV [Entitic volume] by Auto mated countOrdered By: Obaydah Daromar on 12-18-2023 MCV (RBC) [Entitic vol] 78.2 fL Low 83.5-101 [facility] Comment on above: Performed By: #### C , CMP #### [facility] [address] MR head/brain wo conon 12-17 MR head/brain wo con [facility] [employer] [address] [place] [address] MRI Report Signed Patient: Emigdio Jeong III MR#: [id number] : 1940 Acct:[id number] Age/Sex: 83 / M ADM Date: 12/17/23 Loc: 3T Room: [address] [place] [address] Type: ADM IN Attending Dr: Marino Acuña MD Copies to: DO Marino De Leon MD Ordering Provider: Felipe Lopez DO Date of Service: 12/18/23 MR/MR head/brain wo con: progressive cognitive decline, new visual hallucin MR head/brain wo con 12/17/2023 4:44 PM SIGN AND SYMPTOMS: Visual and auditory hallucinations PROTOCOL: Multiplanar multisequence MR images of the brain were obtained without IV contrast COMPARISON: 12/17/2023 FINDINGS: Extra axial spaces: Age appropriate. Hemorrhage: None. Ventricular system: Within normal limits. Basal cisterns: Within normal limits and not effaced. Cerebral parenchyma: Periventricular and subcortical white matter T2 and FLAIR hyperintense foci are noted consistent with chronic microvascular ischemic change. There are a few remote lacunar infarcts in the deep radiograph and periventricular white matter. Midline shift: None.. Cerebellum: Within normal limits. Brainstem: Within normal limits. OTHER: Calvarium: Normal marrow signal. Vascular system: There is a diminished flow void within the V4 segment of the left vertebral artery presumably secondary to flow limiting stenosis or occlusion. Visualized Paranasal sinuses: Within normal limits. Visualized Orbits: Within normal limits. Visualized upper cervical spine: Within normal limits. Sella and skull base: Within normal limits. MR/MR head/brain wo con IMPRESSION: No acute intracranial pathology. 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 Chronic age-related neurodegenerative changes are noted, as above. There is a diminished flow void within the V4 segment of the left vertebral artery presumably secondary to flow limiting stenosis or occlusion. This may be chronic in nature. Impression dictated by: Jean Silveira M.D.12/18/2023 7:30 PM Dictation Location: [place] [address] Transcribed By: [facility] 12/18/231929 Dictated By: Jean Silveira II, MD 12/18/231912 Signed By: 12/18/231929 Normal [facility] Neutrophils [#/volume] in Bl ood by Automated countOrdered By: Obpadilladacharbel Barnesr on 12-18-2023 Neutrophils (Bld) [#/Vol] 2.6 10*3/uL Normal 1.8-7.7 [facility] Comment on above: Performed By: #### C SHARON, CMP #### [facility] [address] [place] [address] No Panel InformationOrdered By: Marino Barnesr on 12-18-2023 Estimated GFR (CKD-EPI) > 60.0 mL/Min [facility] Creatinine Clearance (Chem 63.72 [facility] Nucleated erythrocytes [Pres ence] in Blood by Automated countOrdered By: Marino Barnesr on 12-18-2023 Nucleated RBC Auto Ql (Bld) 0.2 /100{WBC} 0-0.5 [facility] Platelet mean volume [Entiti c volume] in Blood by Automated countOrdered By: Marino Marquezomar on 12-18-2023 Platelet mean volume (Bld) [Entitic vol] 7.8 fL Normal 6.6-10.1 [facility] Comment on above: Performed By: #### C BC, CMP #### [facility] [address] [place] [address] Platelets [#/volume] in Bloo d by Automated countOrdered By: Marino Marquezomar on 12-18-2023 Platelets (Bld) [#/Vol] 141 10*3/uL Low 150-450 [facility] Comment on above: Performed By: #### C BC, CMP #### [facility] [address] [place] [address] [place] Potassium [Moles/volume] in Serum or PlasmaOrdered By: Obkaitlin Acuña on 12-18-2023 Potassium [Moles/Vol] 4.0 mmol/L Normal 3.5-5.1 [facility] Comment on above: Performed By: #### C BC, CMP #### [address] Protein [Mass/volume] in Ser um or PlasmaOrdered By: Marino Marquezomar on 12-18-2023 Protein [Mass/Vol] 6.3 g/dL Low 6.4-8.9 [facility] Comment on above: Performed By: #### C BC, CMP #### [address] Prothrombin Time INRon 12-17 INR Coag (PPP) [Relative time] 2.8 {INR} Normal [facility] Comment on above: Result Comment: INR Therapeutic Range A) Pre- and Peroperative OAT started two weeks before surgery. NOT HIP SURGERY: 1.5 - 2.5 HIP SURGERY: 2 - 3 B) Primary and secondary prevention of venous THROMBOSIS: 2 - 3 C) Active venous thrombosis, pulmonary embolism and prevention of recurrent venous thrombosis: 2 - 3 D) Prevention of arterial thromboembolism including patients with mechanical heart valves: 3 - 4.5 PERFORMED BY: [place] [address] PATHOLOGIST APPLICATION DESIGNER ADAN GIRALDO M.D. Performed By: #### P T #### [address] PT Coag (PPP) [Time] 31.3 s High 9.0-12.9 [facility] Comment on above: Result Comment: A he matocrit value greater than 55% may lead to inaccurate results in coagulation testing. Patients having hematocrit values >55% require a special collection tube for coagulation studies. Please contact the laboratory at [phone] for redraw instructions. Performed By: #### P T #### [address] Serum globulin measurement b y calculation (mass/volume)Ordered By: Marino Marquezomar on 12-18-2023 Globulin (S) [Mass/Vol] 2.5 g/dL Normal [facility] Comment on above: Performed By: #### C BC, CMP #### [address] Serum or plasma albumin/glob ulin mass ratioOrdered By: Obaydah Daromar on 12-18-2023 Albumin/Globulin [Mass ratio] 1.5 {ratio} [facility] Comment on above: Performed By: #### C BC, CMP #### [address] Serum or plasma anion gap de terminationOrdered By: Obaydah Daromar on 12-18-2023 Anion gap [Moles/Vol] 10.2 mmol/L Normal 6.0-15.0 [facility] Comment on above: Performed By: #### C BC, CMP #### [address] Sodium [Moles/volume] in Ser um or PlasmaOrdered By: Obaydah Daromar on 12-18-2023 Sodium [Moles/Vol] 139 mmol/L Normal 136-145 [facility] Comment on above: Performed By: #### C BC, CMP #### [address] Thyrotropin [Units/volume] i n Serum or PlasmaOrdered By: Felipe Lopez on 12-18-2023 TSH Qn 0.92 m[IU]/L Normal 0.45-5.33 [facility] Comment on above: Result Comment: PERF ORMED BY: [place] [address] PATHOLOGIST APPLICATION DESIGNER ADAN GIRALDO M.D. Performed By: #### T SH3 #### [address] Urea nitrogen [Mass/volume] in Serum or PlasmaOrdered By: Obaydah Daromar on 12-18-2023 Urea nitrogen [Mass/Vol] 13 mg/dL Normal 7-25 [facility] Comment on above: Performed By: #### C BC, CMP #### [address] Vit. B12/Folate Profileon Folate 20.6 ng/mL Normal >5.9 [facility] Comment on above: Result Comment: [place] te reference range: >5.9 ng/ml The WHO technical consultation on folate and vitamin b12 deficiencies has determined that folate concentrations less than 4 ng/ml are considered deficient. PERFORMED BY: [place] [address] PATHOLOGIST APPLICATION DESIGNER ADAN GIRALDO M.D. Performed By: #### C BC, CMP #### [address] Vitamin B12 ser/plasOrdered By: Marino Acuña on 12-18-2023 Cobalamin (Vitamin B12) [Mass/Vol] 174 pg/mL Low 180-914 [facility] Comment on above: Performed By: #### C BC, CMP #### [address] Activated partial thrombopla stin time (aPTT) in platelet poor plasma by coagulation aOrdered By: Malik Perez on 12-17-2023 aPTT Coag (PPP) [Time] 36.0 s 25.1-36.5 [facility] Comment on above: A hematocrit value g reater than 55% may lead to inaccurate results in coagulation testing. Patients having hematocrit values >55% require a special collection tube for coagulation studies. Please contact the laboratory at [phone] for redraw instructions. Alan[place] aminotransferase [En zymatic activity/volume] in Serum or PlasmaOrdered By: Malik Perez on 12-17-2023 ALT [Catalytic activity/Vol] 15 U/L Normal 7-52 [facility] Comment on above: Performed By: #### C BC, CMP #### [address] Albumin [Mass/volume] in Ser um or Plasma by Bromocresol green (BCG) dye binding methoOrdered By: Malik Perez on 12-17-2023 Albumin BCG dye [Mass/Vol] 3.9 g/dL 3.5-5.7 [facility] Alkaline phosphatase [Enzyma tic activity/volume] in Serum or PlasmaOrdered By: Malik Perez on 12-17-2023 ALP [Catalytic activity/Vol] 59 U/L Normal 34-104 [facility] Comment on above: Performed By: #### C BC, CMP #### [address] Aspartate aminotransferase [ Enzymatic activity/volume] in Serum or PlasmaOrdered By: Malik Perez on 12-17-2023 AST [Catalytic activity/Vol] 22 U/L Normal 13-39 [facility] Comment on above: Performed By: #### C BC, CMP #### [address] Automated basophil %Ordered By: Malik Perez on 12-17-2023 Basophils/100 WBC (Bld) 0.9 % Normal . [facility] Comment on above: Performed By: #### C BC, CMP #### [address] Automated basophil countOrde red By: Malik Perez on 12-17-2023 Basophils (Bld) [#/Vol] 0.0 10*3/uL Normal 0.0-0.2 [facility] Comment on above: Result Comment: PERF ORMED BY: [place] [address] PATHOLOGIST APPLICATION DESIGNER ADAN GIRALDO M.D. Performed By: #### C BC, CMP #### [address] Automated blood monocyte cou ntOrdered By: Malik Perez on 12-17-2023 Monocytes (Bld) [#/Vol] 0.6 10*3/uL Normal 0.0-0.8 [facility] Comment on above: Performed By: #### C BC, CMP #### [address] Automated eosinophil %Ordere d By: Malik Perez on 12-17-2023 Eosinophils/100 WBC (Bld) 2.0 % Normal . [facility] Comment on above: Performed By: #### C BC, CMP #### [address] Automated eosinophil countOr dered By: Malik Perez on 12-17-2023 Eosinophils (Bld) [#/Vol] 0.1 10*3/uL Normal 0.0-0.45 [facility] Comment on above: Performed By: #### C BC, CMP #### [address] Automated monocyte %Ordered By: Malik Perez on 12-17-2023 Monocytes/100 WBC (Bld) 15.0 % Normal . [facility] Comment on above: Performed By: #### C BC, CMP #### [address] Automated neutrophil %Ordere d By: Malik Perez on 12-17-2023 Neutrophils/100 WBC (Bld) 58.5 % Normal . [facility] Comment on above: Performed By: #### C BC, CMP #### [address] Bilirubin Test strip Ql (U)O rdered By: Malik Perez on 12-17-2023 Bilirubin Ql (U) Negative Negative [facility] Bilirubin.total [Mass/volume ] in Serum or PlasmaOrdered By: Malik Perez on 12-17-2023 Bilirubin [Mass/Vol] 0.7 mg/dL Normal 0.3-1.0 [facility] Comment on above: Performed By: #### C BC, CMP #### [address] Blood lead detectionOrdered By: Malik Perez on 12-17-2023 Lead Ql (Bld) 1.1 ug/dL 0.0-3.4 [facility] Comment on above: Testing performed by Inductively coupled plasma/MassSpectrometry.Analysis by inductively coupled plasma/massspectrometry (ICP/MS)This test was developed and its performance characteristicsdetermined by [facility]. It has not been cleared orapproved by the Food and Drug Administration. Environmental Exposure: WHO Recommendation <5.0 Occupational Exposure: OSHA Lead Std 40.0 VIET 30.0 Detection Limit = 1.0Performed at: [facility] [place], [place] [id number] Director: Young Parisi PhD, Phone: [phone] CT head/brain wo conon 12-16 CT head/brain wo con [facility] [employer] [address] [place] [address] CT Scan Report Signed Patient: Emigdio Jeong III MR#: [id number] : 1940 Acct:[id number] Age/Sex: 83 / M ADM Date: 12/17/23 Loc: ER Room: Type: [facility] ER Attending Dr: Copies to: Malik Perez DO Ordering Provider: Malik Perez DO Date of Service: 12/17/23 CT/CT head/brain wo con: ams CT BRAIN WITHOUT CONTRAST: CLINICAL HISTORY: Altered mental status with confusion COMPARISON: None TECHNIQUE: Contiguous axial unenhanced images were obtained through the brain. This CT exam was performed using one or more following dose reduction techniques: Automated exposure control, adjustment of the mA and/or kV according to patient size, or use of iterative reconstruction technique. FINDINGS: There is generalized atrophy. The ventricles are within normal limits for size and position. Mild microvascular changes are noted. There are no additional areas of abnormal attenuat ion. There is no hemorrhage, mass effect or extra-axial collections. The imaged paranasal sinuses and mastoid air cells are clear. There is carotid siphon and vertebral artery plaque. CT/CT head/brain wo con IMPRESSION: ATROPHY AND CHRONIC MICROVASCULAR CHANGES. NO ACUTE INTRACRANIAL ABNORMALITY. Impression dictated by: Kusum Hall M.D.12/17/2023 1:43 PM Dictation Location: [place] [address] Transcribed By: [facility] 12/17/23 1343 Dictated By: Kusum Hall MD 12/17/23 1341 Signed By: 12/17/23 1343 Normal [facility] Calcium [Mass/volume] in Ser um or PlasmaOrdered By: Malik Perez on 12-17-2023 Calcium [Mass/Vol] 8.8 mg/dL Normal 8.6-10.3 [facility] Comment on above: Performed By: #### C BC, CMP #### [address] Carbon dioxide, total [Moles /volume] in Serum or PlasmaOrdered By: Malik Perez on 12-17-2023 CO2 [Moles/Vol] 26.2 mmol/L Normal 21.0-31.[address] [facility] Comment on above: Performed By: #### C BC, CMP #### [address] Chloride [Moles/volume] in S arline or PlasmaOrdered By: Malik Perez on 12-17-2023 Chloride [Moles/Vol] 108 mmol/L High 98-107 [facility] Comment on above: Performed By: #### C BC, CMP #### [address] Color of Urine by AutoOrdere d By: Malik Perez on 12-17-2023 Color (U) Yellow Normal Yellow [facility] Comment on above: Order Comment: Name Collection Type:: Clean-Voided Midstream Performed By: #### U A #### [address] Complete Blood Count Auto Di ffon 12-17-2023 Mean Corpuscular HGB Conc 32.1 g/dL Low 32.5-35.6 [facility] Comment on above: Performed By: #### C BC, CMP #### [place] [address] [place] Monocytes/100 WBC (Bld) 15.20 % Normal 0.00-20.00 [facility] Comment on above: Performed By: #### C BC, CMP #### [place] [address] [place] NRBC% 0.3 /100{WBC} Normal 0-0.5 [facility] Comment on above: Performed By: #### C BC, CMP #### [address] Comprehensive Metabolic Pane robert 12-17-2023 Albumin [Mass/Vol] 3.9 g/dL Normal 3.5-5.7 [facility] Comment on above: Performed By: #### C BC, CMP #### [address] Creatinine Clr Calc Pharmacy 64.54 Normal [facility] Comment on above: Result Comment: PERF ORMED BY: [place] [address] PATHOLOGIST APPLICATION DESIGNER ADAN GIRALDO M.D. Performed By: #### C BC, CMP #### [address] GFR/1.73 sq M.predicted MDRD (S/P/Bld) [Vol rate/Area] mL/min/{1.73_m2} Normal [facility] Comment on above: Performed By: #### C BC, CMP #### [address] Creatinine [Mass/volume] in Serum or PlasmaOrdered By: Malik Perez on 12-17-2023 Creatinine [Mass/Vol] 1.13 mg/dL Normal 0.70-1.30 [facility] Comment on above: Performed By: #### C BC, CMP #### [address] Erythrocyte distribution wid th [Ratio] by Automated countOrdered By: Malik Perez on 12-17-2023 Erythrocyte distribution width (RBC) [Ratio] 16.7 % High 12.0-14.8 [facility] Comment on above: Performed By: #### C BC, CMP #### [address] Erythrocytes [#/volume] in B lood by Automated countOrdered By: Malik Perez on 12-17-2023 RBC (Bld) [#/Vol] 4.68 10*6/uL Normal 3.90-5.60 [facility] Comment on above: Performed By: #### C SHARON, CMP #### [address] Glucose [Mass/volume] in Ser um or PlasmaOrdered By: Malik Perez on 12-17-2023 Glucose [Mass/Vol] 99 mg/dL Normal 70-100 [facility] Comment on above: ADA recommended refe rence rangeRandom Glucose Reference Range is dependent on time and content of last meal. Glucose of more than 200 mg/dL in a nonstressed, ambulatory subject supports the diagnosis of Diabetes Mellitus. Result Comment: [place] om Glucose Reference Range is dependent on time and content of last meal. Glucose of more than 200 mg/dL in a nonstressed, ambulatory subject supports the diagnosis of Diabetes Mellitus. ADA recommended reference range Performed By: #### C SHARON, CMP #### [address] Glucose [Mass/volume] in Uri ne by Test stripOrdered By: Malik Perez on 12-17-2023 Glucose Test strip (U) [Mass/Vol] Normal mg/dL Normal [facility] Hematocrit [Volume Fraction] of Blood by Automated countOrdered By: Malik Perez on 12-17-2023 Hematocrit (Bld) [Volume fraction] 37.3 % Low 38.8-50.0 [facility] Comment on above: Performed By: #### C SHARON, CMP #### [address] Hemoglobin Test strip Ql (U) Ordered By: Malik Perez on 12-17-2023 Hemoglobin Ql (U) Negative Negative [facility] Hemoglobin [Mass/volume] in BloodOrdered By: Malik Perez on 12-17-2023 Hemoglobin (Bld) [Mass/Vol] 12.0 g/dL Low 13.0-17.0 [facility] Comment on above: Performed By: #### C SHARON, CMP #### [address] [place] [address] [facility] INR in Platelet poor plasma by Coagulation assayOrdered By: Malik Perez on 12-17-2023 INR Coag (PPP) [Relative time] 2.5 {INR} Normal [facility] Comment on above: INR Therapeutic Rang e A) Pre- and Peroperative OAT started two weeks before surgery. NOT HIP SURGERY: 1.5 - 2.5 HIP SURGERY: 2 - 3B) Primary and secondary prevention of venous THROMBOSIS: 2 - 3C) Active venous thrombosis, pulmonary embolismand prevention of recurrent venous thrombosis: 2 - 3D) Prevention of arterial thromboembolismincluding patients with mechanical heart valves: 3 - 4.5 Result Comment: INR Therapeutic Range A) Pre- and Peroperative OAT started two weeks before surgery. NOT HIP SURGERY: 1.5 - 2.5 HIP SURGERY: 2 - 3 B) Primary and secondary prevention of venous THROMBOSIS: 2 - 3 C) Active venous thrombosis, pulmonary embolism and prevention of recurrent venous thrombosis: 2 - 3 D) Prevention of arterial thromboembolism including patients with mechanical heart valves: 3 - 4.5 Performed By: #### C BC, CMP #### [facility] [address] [place] [address] Ketones [Presence] in Urine by Test stripOrdered By: Malik Perez on 12-17-2023 Ketones Ql (U) Negative Normal Negative [facility] Comment on above: Order Comment: Name Collection Type:: Clean-Voided Midstream Performed By: #### U A #### [facility] [address] [place], [place] [id number] [facility] Lead, Adulton 12-17-2023 Lead-Adult Blood 1.1 ug/dL Normal 0.0-3.4 [facility] Comment on above: Result Comment: Test ing performed by Inductively coupled plasma/Mass Spectrometry. Analysis by inductively coupled plasma/mass spectrometry (ICP/MS) This test was developed and its performance characteristics determined by [employer]. It has not been cleared or approved by the Food and Drug Administration. Environmental Exposure: WHO Recommendation <5.0 Occupational Exposure: OSHA Lead Std 40.0 VIET 30.0 Detection Limit = 1.0 Performed at: [address] [id number] Clinical Practice Consultant: Young Parisi PhD, Phone: [phone] PERFORMED BY: [place] [address] PATHOLOGIST APPLICATION DESIGNER ADAN GIRALDO M.D. Performed By: #### C BC, CMP #### [address] Leukocyte esterase [Presence ] in Urine by Test stripOrdered By: Malik Perez on 12-17-2023 Leukocyte esterase Test strip Ql (U) Negative Normal Negative [facility] Comment on above: Order Comment: Name Collection Type:: Clean-Voided Midstream Performed By: #### U A #### [address] Leukocytes [#/volume] correc svitlana for nucleated erythrocytes in Blood by Automated counOrdered By: Malik Perez on 12-17-2023 WBC corrected for nucl RBC Auto (Bld) [#/Vol] 4.3 10*3/uL 4.1-10.5 [facility] Leukocytes [#/volume] in Blo od by Automated countOrdered By: Malik Perez on 12-17-2023 WBC (Bld) [#/Vol] 4.3 10*3/uL Normal 4.1-10.5 [facility] Comment on above: Performed By: #### C BC, CMP #### [place] [address] [place] Lymphocytes [#/volume] in Bl ood by Automated countOrdered By: Malik Perez on 12-17-2023 Lymphocytes (Bld) [#/Vol] 1.0 10*3/uL Normal 1.00-4.8 [facility] Comment on above: Performed By: #### C BC, CMP #### [place] [address] [place] Lymphocytes/100 leukocytes i n Blood by Automated countOrdered By: Malik Perez on 12-17-2023 Lymphocytes/100 WBC (Bld) 23.6 % Normal . [facility] Comment on above: Performed By: #### C BC, CMP #### [facility] [address] MCH [Entitic mass] by Automa svitlana countOrdered By: Malik Perez on 12-17-2023 MCH (RBC) [Entitic mass] 25.6 pg Low 27.5-35.2 [facility] Comment on above: Performed By: #### C SHARON, CMP #### [facility] [address] [place] [address] MCHC Auto (RBC) [Mass/Vol]Or dered By: Malik Perez on 12-17-2023 MCHC (RBC) [Mass/Vol] 32.1 g/dL Low 32.5-35.6 [facility] MCV [Entitic volume] by Auto mated countOrdered By: Malik Perez on 12-17-2023 MCV (RBC) [Entitic vol] 79.7 fL Low 83.5-101 [facility] Comment on above: Performed By: #### C SHARON, CMP #### [address] Monocyte distribution width [Entitic volume] in Blood by AutomatedOrdered By: Malik Perez on 12-17-2023 Monocyte distribution width Auto (Bld) [Entitic vol] 15.20 % 0.00-20.00 [facility] Neutrophils [#/volume] in Bl ood by Automated countOrdered By: Malik Perez on 12-17-2023 Neutrophils (Bld) [#/Vol] 2.5 10*3/uL Normal 1.8-7.7 [facility] Comment on above: Performed By: #### C SHARON, CMP #### [facility] [address] [place] [address] Nitrite Test strip Ql (U)Ord ered By: Malik Perez on 12-17-2023 Nitrite Ql (U) Negative Negative [facility] No Panel InformationOrdered By: Malik Perez on 12-17-2023 Estimated GFR (CKD-EPI) > 60.0 mL/Min [facility] Creatinine Clearance (Chem 64.54 [facility] Nucleated erythrocytes [Pres ence] in Blood by Automated countOrdered By: Malik Perez on 12-17-2023 Nucleated RBC Auto Ql (Bld) 0.3 /100{WBC} 0-0.5 [facility] Outside Recordson 12-17-2023 Outside Records [id number]#[id number] F Normal [facility] Partial Thromboplastin Timeo n 12-17-2023 aPTT Coag (Bld) [Time] 36.0 s Normal 25.1-36.5 [facility] Comment on above: Result Comment: A he matocrit value greater than 55% may lead to inaccurate results in coagulation testing. Patients having hematocrit values >55% require a special collection tube for coagulation studies. Please contact the laboratory at [phone] for redraw instructions. PERFORMED BY: [place] [address] PATHOLOGIST APPLICATION DESIGNER ADAN GIRALDO M.D. Performed By: #### C BC, CMP #### [place] [address] [place] Platelet mean volume [Entiti c volume] in Blood by Automated countOrdered By: Malik Perez on 12-17-2023 Platelet mean volume (Bld) [Entitic vol] 8.0 fL Normal 6.6-10.1 [facility] Comment on above: Performed By: #### C BC, CMP #### [place] [address] [place] Platelets [#/volume] in Bloo d by Automated countOrdered By: Malik Perez on 12-17-2023 Platelets (Bld) [#/Vol] 143 10*3/uL Low 150-450 [facility] Comment on above: Performed By: #### C BC, CMP #### [place] [address] [place] Potassium [Moles/volume] in Serum or PlasmaOrdered By: Malik Perez on 12-17-2023 Potassium [Moles/Vol] 3.9 mmol/L Normal 3.5-5.1 [facility] Comment on above: Performed By: #### C BC, CMP #### [address] Protein Test strip (U) [Mass /Vol]Ordered By: Malik Perez on 12-17-2023 Protein (U) [Mass/Vol] Negative Negative [facility] Protein [Mass/volume] in Ser um or PlasmaOrdered By: Malik Perez on 12-17-2023 Protein [Mass/Vol] 6.3 g/dL Low 6.4-8.9 [facility] Comment on above: Performed By: #### C SHARON, CMP #### [address] Prothrombin time (PT)Ordered By: Malik Perez on 12-17-2023 PT Coag (PPP) [Time] 27.7 s High 9.0-12.9 [facility] Comment on above: A hematocrit value g reater than 55% may lead to inaccurate results in coagulation testing. Patients having hematocrit values >55% require a special collection tube for coagulation studies. Please contact the laboratory at [phone] for redraw instructions. Result Comment: A he matocrit value greater than 55% may lead to inaccurate results in coagulation testing. Patients having hematocrit values >55% require a special collection tube for coagulation studies. Please contact the laboratory at [phone] for redraw instructions. Performed By: #### C SHARON, CMP #### [address] Serum globulin measurement b y calculation (mass/volume)Ordered By: Malik Perez on 12-17-2023 Globulin (S) [Mass/Vol] 2.4 g/dL [facility] Comment on above: Performed By: #### C BC, CMP #### [address] Serum or plasma albumin/glob ulin mass ratioOrdered By: Malik Perez on 12-17-2023 Albumin/Globulin [Mass ratio] 1.6 {ratio} [facility] Comment on above: Performed By: #### C BC, CMP #### [address] Serum or plasma anion gap de terminationOrdered By: Malikprabhakar Perez on 12-17-2023 Anion gap [Moles/Vol] 8.7 mmol/L Normal 6.0-15.0 [facility] Comment on above: Performed By: #### C SHARON, CMP #### [place] [address] [place] Sodium [Moles/volume] in Ser um or PlasmaOrdered By: Malik Perez on 12-17-2023 Sodium [Moles/Vol] 139 mmol/L Normal 136-145 [facility] Comment on above: Performed By: #### C SHARON, CMP #### [address] Specific gravity Test strip (U) [Rel density]Ordered By: Malik Perez on 12-17-2023 Specific gravity (U) [Rel density] 1.023 1.001-1.03 0 [facility] Urea nitrogen [Mass/volume] in Serum or PlasmaOrdered By: Malik Perez on 12-17-2023 Urea nitrogen [Mass/Vol] 16 mg/dL Normal 7-25 [facility] Comment on above: Performed By: #### C SHARON, CMP #### [address] Urinalysison 12-17-2023 Bilirubin,Urine Negative Normal Negative [facility] Comment on above: Order Comment: Name Collection Type:: Clean-Voided Midstream Performed By: #### U A #### [address] Glucose Ql (U) Normal Normal Normal [facility] Comment on above: Order Comment: Name Collection Type:: Clean-Voided Midstream Performed By: #### U A #### [place] [address] [place] Nitrite,Urine Negative Normal Negative [facility] [place] [facility] Comment on above: Order Comment: Name Collection Type:: Clean-Voided Midstream Performed By: #### U A #### [address] Occult Blood,Urine Negative Normal Negative [facility] Comment on above: Order Comment: Name Collection Type:: Clean-Voided Midstream Result Comment: PERF ORMED BY: [place] [address] PATHOLOGIST APPLICATION DESIGNER ADAN GIRALDO M.D. Performed By: #### U A #### [address] Protein,Urine Negative Normal Negative [facility] Comment on above: Order Comment: Name Collection Type:: Clean-Voided Midstream Performed By: #### U A #### [address] Specificy [place],Urine 1.023 Normal 1.001-1.03 0 [facility] Comment on above: Order Comment: Name Collection Type:: Clean-Voided Midstream Performed By: #### U A #### [address] Urobilinogen,Urine Normal Normal Normal [facility] Comment on above: Order Comment: Name Collection Type:: Clean-Voided Midstream Performed By: #### U A #### [address] Urine appearanceOrdered By: Malik Perez on 12-17-2023 Appearance (U) Clear Normal Clear [facility] Comment on above: Order Comment: Name Collection Type:: Clean-Voided Midstream Performed By: #### U A #### [address] Urobilinogen Test strip (U) [Mass/Vol]Ordered By: Malik Perez on 12-17-2023 Urobilinogen (U) [Mass/Vol] Normal mg/dL Normal [facility] pH of Urine by Test stripOrd ered By: Malik Perez on 12-17-2023 pH (U) 6.5 [pH] Normal 5.0-9.0 [facility] Comment on above: Order Comment: Name Collection Type:: Clean-Voided Midstream Performed By: #### U A #### [address] No Panel Informationon 12-13 Bedside INR (LAB) 2.5 [facility] Outside Recordson 12-14-2023 Outside Records [id number]#[id number] [facility] Coding Summaryon 12-09-2023 Coding Summary HTMLBase 64 BwcrutmsZKm3sFj+PGhlYWQ+PE 0GHXMiJ63duIWyjO1bA7HKMZxM AamwSCKJVNsUAcTgikUhQB7ctF NjZXJu IC8+CR1zFXWpSoivdMCao7A4dA B8A28nxr8sINtqtAZ8AXDqQbCo ermvx3ensXp8MJzsQybkZbNd VJHylA31SSO8yR78Po35uOSxpG Fgf8qctZs4LlTwCPIwFSM4aYkj YKdkc8TcBWThT29duLNvf9X1 HFCdcPgapFEfVcKrhVY4fP0oJA ionobxl2aszjxyVah3pb34cHTi k5Q5sXQ0U1WadxQ7IYLtiOQi GyrzeZDIpH1qxskwa6hkpqbgEa DwEKGjHSf9QBf3PZQttFyvAoWk SK37IHC1QXAzcfCyJ7DyUJOu uMgpVzZ8e8E3Lr2TH2KSGsvpZ9 VNTUFSWTwvdGQ+CR53fw70E0Ms HtjwRpe7USJuOFT1nRH6yR9q GXWhGAaop9T9hQL3D1MywrDyif 8qx8laQELzBVasJ67koFWnc8L7 WCIrhFW1QDHdkWxdMaYhpK19 Oyc+ILGxdNlpf6NpSdzst4lba2 qccKb2AircAUFwjmDqqFcbPTO1 n1EkXg5uAEInxLU6hXF2zL6o HhYyJgI4TLgiP334QuEgvRLeYh fyG86gS7PttHS+YHZsNzw9KKGf wNreEY7wM2TcFFNmmymtvFKj sSiiNU6eBEOqxdnzYMSozD9tWP MbM9n4HqHxCvG9LAaxE4BfRICi jqouSu09aR5dYwYcYgJ2WNgw R7KxqyI6TJWvsDYgCHrhDKI5Y1 3at7B6BDFgLPZbNZR6lDZ6aE2d bGlnbjogbGVmdDsgdmVydGlj LIluSWenO524UZXobUejVqBmNR luZyBEYXRlOiAgMDcvMDMvMjAy NDwvdGQ+GUNwNSG6lSvcCVUo gVKkUMnuVl0blElqxNhjJY0nRD ClwjtkEHEadL7uGZWwsHPvpZou RG9yANKmphgma767CkRcOTL0 PYGfqTDlO8ScsN8rYyTaGQGzTQ HfT6IbmKSpQWtpP071SAtzUmA5 IYXmybGtI5EqHHIceIhzXrN7 f5J3Mm2Zj9UrvoapK2CruUGzIn OiRhqgDBn5G7EdDqbgmNC+PC90 BXMmDZ55MFf6OWK6oVmmVPad XCBvS4ZwmU7xWzZiVUIsQQHqAb c+PHRhYmxlIHdpZHRoPScxMDAl GxBzoDjzJZ8dEg6uGBTqFGHo uOyyuUTcVoMko6jeNPWwKZkkJO 4nsPfnK6WrnQY3LKVht1x0Zi47 B78uF7CurYM+QRZhsIK9qIA3 kX0iXtDsXtC2RNpeM950WeAivY LhXwvve9jjl8dkrEv4PiC0TQJy swDvhBxrWOI5i0TcGi63L01d IHdpZHRoPSIxNSUiIHZhbGlnbj 9eoP5rVq2+AJOycVB0oOY1dM0v TdTaVcB2JPhwC662YfAdrXZx Wyzoz7pxf6rcdIr9FfQeQGAjpu FgnNovDIZ0m3JtIn21A8JyzQvy p4RnJuy7qj57pWFzi4G9kXH8 V0HcWWCqecithZNnyTvrMF5cDW KthbogLDLkjO5vLIXsQ5d6GrUs ZvU6AEpuU2PbubU5LEDysBEa DMLdrHJQrM4xqqqsh4urrzmzSf LsKVIlBPk2EEt2JQUdaWktKoSd QDG4BoS7VFX3oAZknK6pzOui ipxyuZ4nFqm+ASP5fOWucKNSAB 1lOjwvdGQ+MNDmSWQ9nAhoKMub ETQhzN9sQMGpS6z5ZfVtOfD9 QBbeG3YkirH9CJXkhFEbEIKebD OAnM9dmyfaj8geddtvGqEyPRKt EDk4YOa1XNGpyBfrGrEqWLX0 ZuD3MFK3lTJflU5zqKuushedxO 9wOyc+JrfzjRaySRC6STu8I2Wv Dao9APZnrFanZE5sgVHoMIfa De9jlHbgbBpaDX3dJJGvjbbdm2 50WcNce8cxZMOngNWkLRlcXTA4 X78jc5T8GVWcJXYqAXB9dZZ0 fL0uaWdbjqivqCLhbZuzirCpaN koUUtsIZbuY280GTGtgBnaUhTh CLq2Y7AzAhi3JWGdiWwrBD4q eIMoPOjsAw8fgMgbvCzsBL6cUZ Qigrvox915EkNyp0pqUCKjnLBl CFvfUYS9Q35bh6N9VLTgVSWh ICX1yIK4gQ3atJauisoynPOzvW jbjjLrhEphIVcxJUijK918FOWl oWxoFnCwrNm9U8CmLmx5CWAo tVvvWU5hzYLbHNwpRb1tgFrnkC rkDZ0jRYOgipdum780KgAdf1cq XSYkpUWxXSvzVKI8G94ok8F4 JXLzUSFkCQW5wGT7bZ6ukFebta ogbGVmdDsgdmVydGljYWwtYWxp C972RHSouIraYzAceLvbulRn PTtlYHl3X2MsRkefeSG+PC90YW YdHJ39mOLyuWTxe0eujKf0JnPn JYObWCG2hZsqKHloc6SaMVEj Y14rtYHmw2C4RRApcDrdbMRcBw RztGY3qQ2rJXcnjvbfw6gjuxtj Qawzx4zpvd53gE77A84gFWtn HIGbFDNmBSOgTVLlbJpfco7jaS 9wIi8+FCQqxOT3dNU2nQ4oZTEq FfJ5CBgoT872BlNudQJhSnbt h6hfk9nkkTs0WuQ4BYFytsYnnI dnNAF2r6YfWs63P03hBRiaNNRt TVZoSQFbUCWlzLjsaj4vmC0l Ii8+GMTleSP6nYY6kX1vQoBsLa S0FSaoT598GlSptMVaAfrgW54x P5OutSQ+FPHkNma6CRIuqBmv DA5ehMZaJPeaKm1lRWF6ZhFhNr GuZXflH3EfULOsssvpdllnyGG2 FJMyLCGrsO93Ad1tmZznOYVf kPBLpW1yefazo8iaofzoPhKpZN VnEFj7TUv5SMAvlBenQuYmUSP8 BjZ2RUS5bLNclA1cyOndeopj hF5qN3LzBHBwqmcuMu54oR9jVt QhQqE8UIslHvm+K9TFPJRVD97L EKBAMWRXQMRFCHX0I4VyCnl4 ASXnkQboPK9cvHWaZSuiHb0lmU zbbGkzEE9yIYTzmxchGRSizN2g JTWuuSUvkZqePL7vSFEspfat o813MqYwPMM5GEElrMTnJ8OgsG 2fKsLhBRCiRJSqP4EhiRZuRAqs Y998RVunVaH0LQTjcfHvH8Ln JSAqsUtbBwV1m1U2Oz6uJR1oEK 3eYDZyBN96DS90vFLtz7Z2ySV7 W5NjMNJwedllqdzobZL0OIDr KMUioK63tYEpYBhnEq9st9E5n3 12LGCeSQTfxO04Pp3jhBqsIBTa iFRDnS3osbuxi6wwyfpqHfEo RNDcYMc6DAn3QYYwaKgjElGdEZ Q9HtW8EDG2lKBhiC2luRqzvohu sT8zCog+SQGfFZWxafM2P6Mi Tte6YYTpxXaaWD7nqCIeFJwwAv 5jkKuqcUilOZ0rTCUuooriQRVi gT9kGOQhrEZadGwwQJ9lQUHp ygrmd037AcEdFRO1VXYdqVYkO5 RbpC8eFsIuFGRjNLDoU5MyeSYa STbaX916CNgnUaT6GTPjvfGv F6QtVEYsaAbrEjW9w8B0Tb2NPD lTOO58QK34aTLof2P1gQE8Z8Ww TJFyzxolcyvgpCV4WZPiJFYt nP99lANsHAdzUg1tm6Q7v238HX SyTHTmgH82Bm6yhOysVSYegUPX gB2tujlsf8bhgvbkFpLfARCl FAt7GZr8SGFgkVofBuWuPTS0Ph Q0RDQ0gPVqvG5vlAhnlqqgxA9c Oyc+F2Z2T7AiPxlnbFG+PC90 BOIcYS54mORraMIuk7rhvOj5Ta UgSBHdOPG6kCuvHKmpo4TaRBMm S17kqDBai3S9RFVklQpvgOMu MfHnyAK2gW1oIQoouifry8eica oaEgqwv6ivdn49hF74R99yAYzs DUXpOQCkMAKvUDTtgZwlir6a iW3wLe3+BCJnyUU8oKR3xR2rOg NzGfY3IGgdR155JoEdlVLrYtsr q0tug3tvdGp6OeYhYVNmsrXb xWbaUMO2s5VkGi62L08zTDwvJN AxUDWoCXVkEQKpsPyyyr4pbQ2u Ii8+GM6la8lyeu39qD56hPB+ FZNmPVH7cYpjPQclZEVxdG7qSB wkVjX4ISUpZmCiuI53xWAuLDkr Px2ktOdctPwqAB2pYHRfnbka z396DzXse9gmIKEfkLTvQXnzAH H1U38hg5T4RBGfQPSaQOV1hIF1 vL9ztZaxebdxkZTcnPpcxfFm vFlwIZejHFljD096XJFzmCaqZq ApuGQeS0tfwqMFLP9uIpkuyDR+ QQRpMXM6yKxxPXzrXHGsmG4o OBQwG5g8UoTuBbG4PTwpK1Kong U5UODifKDiKORyuGSIlM7tvrft e3bmilgdGtOzCFEfCMl4OEu5 QTJrzPtdXcKzXAC7PiT2KDZ5qG AoeN6gnHpcirkykY4nZox+RklO OjwvdGQ+RIVpWPZ6sSfuHSsk OPJnlV1cHDEtY0i5WuJwNnT9OO iaQ2KqfsS1AFSksMKiUUDkkZVI oS7hqqntj1rwtscbUlUzKJPt MJe9LPl8FGEevDejFuKdNRR2Hu D6OXF4aXFtiX1oeKfhqysrqU3u Oyc+TVJOOjwvdGQ+PHRkIHN0 cNxrUVskMWQdiK3oWAAcM7n2Pa TuTfN5QHgbX1DwutP5OBAtjUBs QFAbqWCNyZ4iwmzlf6pwexpc GvDmNCQyTSl3TZs3HGQarVfyLi DkZHY6QtH8XNN5yXCdtN6roWpc viyiaV5gBdk+VER9IWX7SW18 NE59S8YiVqyslJTetTP+PHRhYm xlIHdpZHRoPScxMDAlJyBzdHls ZH1iNg2jSBMhEMGloChfnRKu OiB (more content not included)... [facility] Outside Recordson 12-08-2023 Outside Records [id number]#[id number] F [facility] Outside Records [id number]#1.00OTGTIF F [facility] Rad - Other Radiology Report on 12-08-2023 Rad - Other Radiology Report [id number]#1.00OTGTIF F [facility] No Panel Informationon 12-06 Bedside INR (LAB) 2.5 [facility] Reminder Messageson 12-02-19 24 Reminder Messages - From: EMIGDIO VILLANUEVA DO To: [facility] [address] Clinical Pool ([id number]); Sent: 12/01/2023 07:36:10 EDT ! Show up: 12/01/2023 07:36:10 EDT Subject: Results Follow Up Actions: Call the patient with result(s) Due Date/Time: 12/02/2023 07:35:00 EDT Reminder Comments: looks good Results: Date Result Name Ind Value Ref Range 11/30/2023 15:49 Sodium Level 141.0 mmol/L (136.0 - 144.0) 11/30/2023 15:49 Potassium Level 4.2 mmol/L (3.6 - 5.1) 11/30/2023 15:49 Chloride Level 109 mmol/L (101 - 111) 11/30/2023 15:49 CO2 26 mmol/L (21 - 32) 11/30/2023 15:49 Anion Gap 10.2 mmol/L (5.0 - 19.0) 11/30/2023 15:49 Glucose Level 118.0 mg/dL (74.0 - 118.0) 11/30/2023 15:49 BUN 15 mg/dL (8 - 26) 11/30/2023 15:49 Creatinine Level 1.05 mg/dL (0.90 - 1.30) 11/30/2023 15:49 BUN/Creat Ratio 14.2 (4.6 - 16.2) 11/30/2023 15:49 eGFR AA >60 mL/min/1.73m2 11/30/2023 15:49 eGFR Non AA >60 mL/min/1.73m2 11/30/2023 15:49 Calcium Level 8.9 mg/dL (8.9 - 10.3) 11/30/2023 15:49 Bili Total 0.6 mg/dL (0.3 - 1.2) 11/30/2023 15:49 Alk Phos 61 IU/L (32 - 91) 11/30/2023 15:49 AST/SGOT 21 IU/L (15 - 41) 11/30/2023 15:49 ALT/SGPT ((L)) 16.0 IU/L (17.0 - 63.0) 11/30/2023 15:49 Protein Total 6.8 gm/dL (6.5 - 8.1) 11/30/2023 15:49 Albumin Level 3.8 gm/dL (3.5 - 5.0) 11/30/2023 15:49 Globulin 3.0 gm/dL (1.5 - 4.3) 11/30/2023 15:49 A/G Ratio ((L)) 1.2 (1.4 - 2.6) 11/30/2023 15:49 Osmolality 283 mOsm/L 11/30/2023 15:49 T4 7.55 mcg/dL (6.09 - 12.23) 11/30/2023 15:49 TSH 0.87 mcIU/mL (0.45 - 5.33) 11/30/2023 15:49 WBC 5.0 x103/mcL (3.5 - 10.5) 11/30/2023 15:49 RBC 4.77 x106/mcL (3.70 - 5.30) 11/30/2023 15:49 Hgb 12.2 gm/dL (11.8 - 17.7) 11/30/2023 15:49 Hct 38.7 % (34.8 - 51.9) 11/30/2023 15:49 MCV 81 fL (81 - 100) 11/30/2023 15:49 MCH 26 pg (24 - 34) 11/30/2023 15:49 MCHC 31 gm/dL (26 - 37) 11/30/2023 15:49 RDW ((H)) 16.8 % (11.5 - 15.0) 11/30/2023 15:49 Platelet 169 x103/mcL (138 - 427) 11/30/2023 15:49 MPV 7.8 fL (6.3 - 10.2) 11/30/2023 15:49 Auto Neut % 64 % (44 - 88) 11/30/2023 15:49 Auto Lymph % 20 % (14 - 48) 11/30/2023 15:49 Auto Mohave % ((H)) 13 % (1 - 12) 11/30/2023 15:49 Auto Eos % 1.8 % (0.9 - 4.0) 11/30/2023 15:49 Auto Baso % 1.0 % (0.2 - 2.0) 11/30/2023 15:49 Neut Abs# 3.2 x103/mcL (1.5 - 9.2) 11/30/2023 15:49 Lymph Abs# ((L)) 1.0 x103/mcL (1.3 - 2.9) 11/30/2023 15:49 Mohave Abs# 0.6 x103/mcL (0.0 - 0.8) 11/30/2023 15:49 Eos Abs# 0.1 x103/mcL (0.0 - 0.4) 11/30/2023 15:49 Baso Abs# 0.0 x103/mcL (0.0 - 0.2) attempted to contact patient, unable to leave message as VM is full [facility] Outside Recordson 12-01-2023 Outside Records [id number]#1.00OTGTIF [facility] Patient Handouton 12-01-2023 Patient Handout [id number]#1.00OTGTIF [facility] Patient Provided Health Data on 12-01-2023 Patient Provided Health Data [id number]#1.00OTIF [facility] .Auto Diff 1on 11-30-2023 Auto Mohave % 13 % High 1-12 [facility] Comment on above: Performed By: #### 7 [id number], [id number], [id number], [id number], [id number] ####[facility] (DEFAULT)[address] [place] [address]78[address] Baso Abs# 0.0 x10 Normal 0.0-0.2 [facility] Comment on above: Performed By: #### 7 [id number], [id number], [id number], [id number], [id number] ####[facility] (DEFAULT)[address] [place] [address] 06552 Basophils/100 WBC (Bld) 1.0 % Normal 0.2-2.0 [facility] Comment on above: Performed By: #### 7 [id number], [id number], [id number], [id number], [id number] ####[facility] (DEFAULT)[address] [place] [address] 09472 Eos Abs# 0.1 x10 Normal 0.0-0.4 [facility] Comment on above: Performed By: #### 7 [id number], [id number], [id number], 5020503, [id number] ####[facility] (DEFAULT)[address] [place] [address] 19449 Eosinophils/100 WBC (Bld) 1.8 % Normal 0.9-4.0 [facility] Comment on above: Performed By: #### 7 104984, [id number], [id number], 0983896, [id number] ####[facility] (DEFAULT)[address] [place] [address] Lymph Abs# 1.0 x10 Low 1.3-2.9 [facility] Comment on above: Performed By: #### 7 [id number], [id number], [id number], [id number], [id number] ####[facility] (DEFAULT)[address] [place] [address] Lymphocytes/100 WBC (Bld) 20 % Normal 14-48 [facility] Comment on above: Performed By: #### 7 [id number], [id number], [id number], 5945209, [id number] ####[facility] (DEFAULT)[address] [place] [address] Mohave Abs# 0.6 x10 Normal 0.0-0.8 [facility] Comment on above: Performed By: #### 7 382589, [id number], [id number], 1431299, [id number] ####[facility] (DEFAULT)[address] [place] [address] Neut Abs# 3.2 x10 Normal 1.5-9.2 [facility] Comment on above: Performed By: #### 7 [id number], [id number], [id number], 5680355, [id number] ####[facility] (DEFAULT)[address] [place] [address] Neutrophils/100 WBC (Bld) 64 % Normal 44-88 [facility] Comment on above: Performed By: #### 7 042867, [id number], [id number], 4026596, [id number] ####[facility] (DEFAULT)[address] [place] [address] CBC w/ Auto Diffon 4 Erythrocyte distribution width (RBC) [Ratio] 16.8 % High 11.5-15.0 [facility] Comment on above: Performed By: #### 7 [id number], [id number], [id number], 4437841, [id number] ####[facility] (DEFAULT)[address] [place] [address] 70565 Hematocrit (Bld) [Volume fraction] 38.7 % Normal 34.8-51.9 [facility] Comment on above: Performed By: #### 7 364505, [id number], [id number], 4494694, [id number] ####[facility] (DEFAULT)[address] [place] [address] 65159 Hemoglobin (Bld) [Mass/Vol] 12.2 g/dL Normal 11.8-17.7 [facility] Comment on above: Performed By: #### 7 427637, 31243474, [id number], 8386081, 62476547 ####[facility] (DEFAULT)[address] [place] [address] Man Diff? Auto Invalid Interpretation Code [facility] Comment on above: Performed By: #### 7 215679, [id number], [id number], 9753699, [id number] ####[facility] (DEFAULT)[address] [place] [address] 17338 MCH (RBC) [Entitic mass] 26 pg Normal 24-34 [facility] Comment on above: Performed By: #### 7 007757, 59042044, [id number], 2148453, [id number] ####[facility] (DEFAULT)[address] [place] [address] 36877 MCHC (RBC) [Mass/Vol] 31 g/dL Normal 26-37 [facility] Comment on above: Performed By: #### 7 376190, 45060540, [id number], 8398824, 35749486 ####[facility] (DEFAULT)[address] [place] [address] 31886 MCV (RBC) [Entitic vol] 81 fL Normal 81-100 [facility] Comment on above: Performed By: #### 7 177263, 01057867, [id number], 7873523, 09365550 ####[facility] (DEFAULT)[address] [place] [address] 87934 Platelet 169 x10 Normal 138-427 [facility] Comment on above: Performed By: #### 7 287991, 83632343, [id number], 7224688, 35643110 ####[facility] (DEFAULT)[address] [place] [address] Platelet mean volume (Bld) [Entitic vol] 7.8 fL Normal 6.3-10.2 [facility] Comment on above: Performed By: #### 7 671973, 58392045, [id number], 7916739, 01893347 ####[facility] (DEFAULT)[address] [place] [address] RBC 4.77 x10 Normal 3.70-5.30 [facility] Comment on above: Performed By: #### 7 145459, 05238179, [id number], 2389745, 97279319 ####[facility] (DEFAULT)[address] [place] [address] WBC 5.0 x10 Normal 3.5-10.5 [facility] Comment on above: Performed By: #### 7 056633, 35166834, [id number], 2277393, 23547059 ####[facility] (DEFAULT)[address] [place] [address] Standardon 11-30-2023 eGFR Non AA >60 Invalid Interpretation Code [facility] Comment on above: Performed By: #### 7 478365, 23764916, [id number], 2419558, 04815332 ####[facility] (DEFAULT)[address] [place] [address] eGFR AA >60 Invalid Interpretation Code [facility] Comment on above: Performed By: #### 7 494258, 32438360, [id number], 7565004, 30785651 ####[facility] (DEFAULT)[address] [place] [address] Albumin [Mass/Vol] 3.8 g/dL Normal 3.5-5.0 [facility] Comment on above: Performed By: #### 7 316880, 46166016, 2305828213, 0034912, 70456973 ####[facility] (DEFAULT)[address] [place] [address] 04956 Albumin/Globulin [Mass ratio] 1.2 {ratio} Low 1.4-2.6 [facility] Comment on above: Performed By: #### 7 453342, 16620698, 3704522572, 3907870, 59850803 ####[facility] (DEFAULT)[address] [place] [address] 54515 Alk Phos 61 IU/L Normal 32-91 [facility] Comment on above: Performed By: #### 7 838246, 38001650, [id number], 4044880, 94343499 ####[facility] (DEFAULT)[address] [place] [address] 71677 ALT [Catalytic activity/Vol] 16.0 U/L Low 17.0-63.0 [facility] Comment on above: Performed By: #### 7 907813, 38389257, 3996267183, 5500970, 57551708 ####[facility] (DEFAULT)[address] [place] [address] 40698 Anion gap [Moles/Vol] 10.2 mmol/L Normal 5.0-19.0 [facility] Comment on above: Performed By: #### 7 258126, 64295920, 2081252123, 0909155, 70766783 ####[facility] (DEFAULT)[address] [place] [address] 47714 AST [Catalytic activity/Vol] 21 U/L Normal 15-41 [facility] Comment on above: Performed By: #### 7 539367, 84190784, 0053313696, 9052306, 26881685 ####[facility] (DEFAULT)[address] [place] [address] 74111 Bili Total 0.6 mg/dL Normal 0.3-1.2 [facility] Comment on above: Performed By: #### 7 781650, 93043990, 9741976542, 6374725, 73895984 ####[facility] (DEFAULT)[address] [place] [address] 52607 Calcium [Mass/Vol] 8.9 mg/dL Normal 8.9-10.3 [facility] Comment on above: Performed By: #### 7 719533, 57984734, 5843274636, 4097492, 32450822 ####[facility] (DEFAULT)[address] [place] [address] 80637 Chloride [Moles/Vol] 109 mmol/L Normal 101-111 [facility] Comment on above: Performed By: #### 7 550619, 10856782, 5006130076, 2471071, 24748026 ####[facility] (DEFAULT)[address] [place] [address] 07757 CO2 [Moles/Vol] 26 mmol/L Normal 21-32 [facility] Comment on above: Performed By: #### 7 096104, 28092488, 3199136449, 4787662, 41023933 ####[facility] (DEFAULT)[address] [place] [address] 61577 Creatinine [Mass/Vol] 1.05 mg/dL Normal 0.90-1.30 [facility] Comment on above: Performed By: #### 7 962867, 47767484, [id number], 7994764, 99454165 ####[facility] (DEFAULT)[address] [place] [address] 52750 Globulin (S) [Mass/Vol] 3.0 g/dL Normal 1.5-4.3 [facility] Comment on above: Performed By: #### 7 292789, 83191135, 3346619552, 9438473, 35189843 ####[facility] (DEFAULT)[address] [place] [address] 89518 Glucose [Mass/Vol] 118.0 mg/dL Normal 74.0-118.0 [facility] Comment on above: Performed By: #### 7 571215, 46701045, 4894529292, 0412264, 74169696 ####[facility] (DEFAULT)[address] [place] [address] 25432 Osmolality 283 mOsm/L Invalid Interpretation Code [facility] Comment on above: Performed By: #### 7 607006, 50105375, 0282188512, 0005756, 77886750 ####[facility] (DEFAULT)[address] [place] [address] 77618 Potassium [Moles/Vol] 4.2 mmol/L Normal 3.6-5.1 [facility] Comment on above: Performed By: #### 7 996717, 79749690, 4406134837, 3202324, 11459414 ####[facility] (DEFAULT)[address] [place] [address] 93319 Protein [Mass/Vol] 6.8 g/dL Normal 6.5-8.1 [facility] Comment on above: Performed By: #### 7 459487, 92059175, 8331501510, 5548922, 77063391 ####[facility] (DEFAULT)[address] [place] [address] 91207 Sodium [Moles/Vol] 141.0 mmol/L Normal 136.0-144 . 0 [facility] Comment on above: Performed By: #### 7 045058, 75855970, 2043127710, 8468270, 61412860 ####[facility] (DEFAULT)[address] [place] [address] 31255 Urea nitrogen [Mass/Vol] 15 mg/dL Normal 8-26 [facility] Comment on above: Performed By: #### 7 704704, 54622138, 4228655710, 5144165, 65099533 ####[facility] (DEFAULT)[address] [place] [address] 55955 Urea nitrogen/Creatinine [Mass ratio] 14.2 mg/mg Normal 4.6-16.2 [facility] Comment on above: Performed By: #### 7 848495, 96109114, [id number], 5895055, 11432941 ####[facility] (DEFAULT)[address] [place] [address] 01691 T4, Totalon 11-30-2023 T4 [Mass/Vol] 7.55 ug/dL Normal 6.09-12.23 [facility] Comment on above: Performed By: #### 7 791395, 55347011, 9496953431, 7188799, 33908840 ####[facility] (DEFAULT)[address] [place] [address] 62955 TSHon 11-30-2023 TSH Qn 0.87 m[IU]/L Normal 0.45-5.33 [facility] Comment on above: Performed By: #### 7 359543, 59048901, [id number], 3457256, 43498455 ####[facility] (DEFAULT)[address] [place] [address] No Panel Informationon 11-23 Bedside INR (LAB) 1.3 Low [facility] No Panel Informationon 10-25 Bedside INR (LAB) 2.1 [facility] No Panel Informationon 10-04 Bedside INR (LAB) 2.4 [facility] No Panel Informationon 08-04 Bedside INR (LAB) 5.9 [facility] TRANSTHORACIC ECHO (TTE) COM PLETEon 07-22-2023 TRANSTHORACIC ECHO (TTE) COMPLETE [address], [address] [place] [address] TRANSTHORACIC ECHOCARDIOGRAM REPORT Patient Name: EMIGDIO Amanda Physician: [id number] Ziegler MD Study Date: 07/22/2023 Ordering Provider: [id number] FLETCHER ZIEGLER MRN/PID: [id number] Fellow: Nurse: Date of /Age: 4 1940 / 82 years Charge Accounts Audit Clerk: Aylin Turner RDCS, RVT Gender: M Additional Staff: Height: 182.88 cm Admit Date: Weight: 99.79 kg Admission Status: BSA / BMI: 2.22 m2 / 29.84 kg/m2 Department Location: [facility] Blood Pressure: 138 /84 mmHg Study Type: TRANSTHORACIC ECHO (TTE) COMPLETE Diagnosis/ICD: Cardiac murmur, unspecified-R01.1 Indication: Permanent Atrial Fibrillation, CAD, PTCA, CABG, Obesity, Former Smoker CPT Codes: Echo Complete w Full Doppler-[id number] Study Detail: The following Echo studies were performed: 2D, M-Mode, Doppler and color flow. PHYSICIAN INTERPRETATION: Left Ventricle: Left ventricular systolic function is normal, with an estimated ejection fraction of 60-65%. There are no regional wall motion abnormalities. The left ventricular cavity size is normal. Spectral Doppler shows an impaired relaxation pattern of left ventricular diastolic filling. Left Atrium: The left atrium is moderately dilated. Right Ventricle: The right ventricle is mildly enlarged. There is normal right ventricular global systolic function. Right Atrium: The right atrium is upper limits of normal in size. Aortic Valve: The aortic valve is trileaflet. There is mild aortic valve thickening. There is evidence of mildly elevated transaortic gradients consistent with sclerosis of the aortic valve. There is trivial aortic valve regurgitation. The peak instantaneous gradient of the aortic valve is 8.2 mmHg. The mean gradient of the aortic valve is 5.0 mmHg. Mitral Valve: The mitral valve is mildly thickened. There is mild mitral valve regurgitation. Tricuspid Valve: The tricuspid valve is structurally normal. There is mild tricuspid regurgitation. Pulmonic Valve: The pulmonic valve is not well visualized. There is mild pulmonic valve regurgitation. Pericardium: There is no pericardial effusion noted. Aorta: The aortic root is normal. CONCLUSIONS: 1. Left ventricular systolic function is normal with a 60-65% estimated ejection fraction. 2. Spectral Doppler shows an impaired relaxation pattern of left ventricular diastolic filling. 3. The left atrium is moderately dilated. 4. Aortic valve sclerosis. QUANTITATIVE DATA SUMMARY: 2D MEASUREMENTS: Normal Ranges: Ao Root d: 3.10 cm (2.0-3.7cm) LAs: 4.40 cm (2.7-4.0cm) RVIDd: 3.40 cm (0.9-3.6cm) IVSd: 1.80 cm (0.6-1.1cm) LVPWd: 1.30 cm (0.6-1.1cm) LVIDd: 3.80 cm (3.9-5.9cm) LVIDs: 2.70 cm LV Mass Index: 102.9 g/m2 LV % FS 28.9 % LV SYSTOLIC FUNCTION BY 2D PLANIMETRY (MOD): Normal Ranges: EF-A4C View: 64.7 % (>=55%) LV DIASTOLIC FUNCTION: Normal Ranges: MV Peak E: 1.06 m/s (0.7-1.2 m/s) MITRAL VALVE: Normal Ranges: MV Vmax: 1.38 m/s (<=1.3m/s) MV peak P.6 mmHg (<5mmHg) MV mean P.3 mmHg (<48mmHg) MITRAL INSUFFICIENCY: Normal Ranges: MR Vmax: 356.67 cm/s dP/dt: 831 mmHg/s (>1200mmHg/sec) AORTIC VALVE: Normal Ranges: AoV Vmax: 1.43 m/s (<=1.7m/s) AoV Peak P.2 mmHg (<20mmHg) AoV Mean P.0 mmHg (1.7-11.5mmHg) LVOT Max Kemar: 0.71 m/s (<=1.1m/s) AoV VTI: 30.90 cm (18-25cm) LVOT VTI: 13.80 cm LVOT Diameter: 2.30 cm (1.8-2.4cm) AoV Area, VTI: 1.86 cm2 (2.5-5.5cm2) AoV Area,Vmax: 2.07 cm2 (2.5-4.5cm2) AoV Dimensionless Index: 0.45 AORTIC INSUFFICIENCY: AI Vmax: 2.65 m/s AI Half-time: 485 msec AI Decel Rate: 207.33 cm/s2 TRICUSPID VALVE/RVSP: Normal Ranges: Peak TR Velocity: 3.01 m/s RV Syst Pressure: 39.2 mmHg (< 30mmHg) PULMONIC VALVE: Normal Ranges: PV Max Kemar: 0.6 m/s (0.6-0.9m/s) PV Max P.3 mmHg PIEDV: 2.98 m/s PADP: 38.6 mmHg [id number] Fletcher Ziegler MD Electronically signed on 07/26/2023 at 2:45:02 PM Final [facility] Prothrombin Time INRon 06-17 INR Coag (PPP) [Relative time] 2.5 {INR} [employer] Other Prothrombin Time INR [facility] [employer] Other Prothrombin Time INRon 05-27 INR Coag (PPP) [Relative time] 2.3 {INR} [employer] Other Prothrombin Time INR [facility] [employer] Other Prothrombin Time INRon 05-06 INR Coag (PPP) [Relative time] 1.5 {INR} [employer] Other Prothrombin Time INR [facility] [employer] Other Prothrombin Time INRon 03-03 INR Coag (PPP) [Relative time] 1.8 {INR} [employer] Other Prothrombin Time INR [facility] [employer] Other Prothrombin Time INRon 01-21 INR Coag (PPP) [Relative time] 2.0 {INR} [employer] Other Prothrombin Time INR [facility] [employer] Other Prothrombin Time INRon 12-16 INR Coag (PPP) [Relative time] 1.8 {INR} [employer] Other Prothrombin Time INR [facility] [employer] Other CBC AUTO DIFFon 10-06-2022 BASO # 0.1 103/ul Normal 0.0-0.1 [facility] Comment on above: Performed By: #### C BC #### [facility] [address] [place] [address] Dr. Tong Oviedo Basophils/100 WBC (Bld) 1.1 % Normal 0.2-2.0 [facility] Comment on above: Performed By: #### C BC #### [facility] [address] [place] [address] Dr. oTng Oviedo EO # 0.1 103/ul Normal 0.0-0.7 [facility] Comment on above: Performed By: #### C BC #### [facility] [address] [place] [address] Dr. Tong Oviedo Eosinophils/100 WBC (Bld) 2.6 % Normal 0.9-7.0 [facility] Comment on above: Performed By: #### C BC #### [facility] [address] [place] [address] Dr. Tong Oviedo Erythrocyte distribution width (RBC) [Ratio] 19.8 % Critically high 11.0-15.0 [facility] Comment on above: Result Comment: anis ocytosis 2+ Performed By: #### C BC #### [facility] [address] [place] [address] Dr. Tong Oviedo Hematocrit (Bld) [Volume fraction] 36.1 % Critically low 42.0-54.0 [facility] Comment on above: Performed By: #### C BC #### [facility] [address] [place] [address] Dr. Tong Oviedo Hemoglobin (Bld) [Mass/Vol] 10.2 g/dL Critically low 14.0-18.0 [facility] Comment on above: Performed By: #### C BC #### [facility] [address] [place] [address] Dr. Tong Oviedo IG # 0.01 10e3/ul Normal 0.00-0.03 [facility] Comment on above: Performed By: #### C BC #### [facility] [address] [place] [address] Dr. Tong Oviedo IG % 0.2 % Normal 0.0-0.5 [facility] Comment on above: Performed By: #### C BC #### [facility] [address] [place] [address] Dr. Tong Oviedo LYMPH # 1.0 103/ul Critically low 1.2-3.[address] [facility] Comment on above: Performed By: #### C BC #### [facility] [address] [place] [address] Dr. Tong Oviedo Lymphocytes/100 WBC (Bld) 21.2 % Normal 20.5-60.[address] [facility] Comment on above: Performed By: #### C BC #### [facility] [address] [place] [address] Dr. Tong Oviedo MANUAL DIFF REQ NO Normal [facility] Comment on above: Performed By: #### C BC #### [facility] [address] [place] [address] Dr. Tong Oviedo MCH (RBC) [Entitic mass] 20.2 pg Critically low 25.9-34.[address] [facility] Comment on above: Performed By: #### C BC #### [facility] [address] [place] [address] Dr. Tong Oviedo MCHC (RBC) [Mass/Vol] 28.3 g/dL Critically low 29.9-35.[address] [facility] Comment on above: Result Comment: hypo chromasia 1+ Performed By: #### C BC #### [facility] [address] [place] [address] Dr. Tong Oviedo MCV (RBC) [Entitic vol] 71.3 fL Critically low 80.0-94.[address] [facility] Comment on above: Result Comment: micr ocytosis 2+ Performed By: #### C BC #### [facility] [address] [place] [address] Dr. Tong Oviedo MONO # 0.6 103/ul Normal 0.3-0.8 [facility] Comment on above: Performed By: #### C BC #### [facility] [address] [place] [address] Dr. Tong Oviedo Monocytes/100 WBC (Bld) 11.8 % Normal 1.7-12.0 [facility] Comment on above: Performed By: #### C BC #### [facility] [address] [place] [address] Dr. Tong Oviedo NEUT # 2.9 103/ul Normal 1.4-6.5 [facility] Comment on above: Performed By: #### C BC #### [facility] [address] [place] [address] Dr. Tong Oviedo Neutrophils/100 WBC (Bld) 63.1 % Normal 43.0-75.[address] [facility] Comment on above: Performed By: #### C BC #### [facility] [address] [place] [address] Dr. Tong Oviedo Platelet mean volume (Bld) [Entitic vol] 9.5 fL Normal 9.5-13.[address] [facility] Comment on above: Performed By: #### C BC #### [facility] [address] [place] [address] Dr. Tong Oviedo PLT 157 103/ul Normal 150-450 [facility] Comment on above: Performed By: #### C BC #### [facility] [address] [place] [address] Dr. Tong Oviedo RBC 5.06 106/ul Normal 4.70-6.10 [facility] Comment on above: Performed By: #### C BC #### [facility] [address] [place] [address] Dr. Tong Oviedo WBC 4.7 103/ul Normal 4.0-11.0 [facility] Comment on above: Performed By: #### C BC #### [facility] [address] [place] [address] Dr. Tong Oviedo MAGNESIUMon 10-06-2022 Magnesium [Mass/Vol] 1.8 mg/dL Normal 1.8-2.4 [facility] Comment on above: Performed By: #### T SH, T4, CMP, MG #### [facility] [address] [place] [address] Dr. Tong Oviedo PROF 14(COMP METB)on 023 Albumin [Mass/Vol] 3.3 g/dL Critically low 3.4-5.0 [facility] Comment on above: Performed By: #### T SH, T4, CMP, MG #### [facility] [address] [place] [address] Dr. Tong Oviedo Albumin/Globulin [Mass ratio] 0.9 {ratio} Normal [facility] Comment on above: Performed By: #### T SH, T4, CMP, MG #### [facility] [address] [place] [address] Dr. Tong Oviedo ALP [Catalytic activity/Vol] 86 U/L Normal 46-[address] [facility] Comment on above: Performed By: #### T SH, T4, CMP, MG #### [facility] [address] [place] [address] Dr. Tong Oviedo ALT [Catalytic activity/Vol] 25 U/L Normal 16-63 [facility] Comment on above: Performed By: #### T SH, T4, CMP, MG #### [facility] [address] [address] [address] Tong Oviedo Anion gap [Moles/Vol] 10.8 mmol/L Normal [facility] Comment on above: Performed By: #### T SH, T4, CMP, MG #### [facility] [address] [address] [address] Tong Oviedo AST [Catalytic activity/Vol] 24 U/L Normal 15-37 [facility] Comment on above: Performed By: #### T SH, T4, CMP, MG #### [facility] [address] [address] [address] Tong Oviedo Bilirubin [Mass/Vol] 0.7 mg/dL Normal 0.2-1.0 [facility] Comment on above: Performed By: #### T SH, T4, CMP, MG #### [facility] [address] [place] [address] Dr. Tong Oviedo Calcium [Mass/Vol] 8.8 mg/dL Normal 8.5-10.1 [facility] Comment on above: Performed By: #### T SH, T4, CMP, MG #### [facility] [address] [address] [address] Tong Oviedo Chloride [Moles/Vol] 106 mmol/L Normal 98-107 [facility] Comment on above: Performed By: #### T SH, T4, CMP, MG #### [facility] [address] [address] [address] Tong Oviedo CO2 [Moles/Vol] 27.2 mmol/L Normal 21.0-32.0 [facility] Comment on above: Performed By: #### T SH, T4, CMP, MG #### [facility] [address] [address] [address] Tong Oviedo Creatinine [Mass/Vol] 1.04 mg/dL Normal 0.70-1.30 [facility] Comment on above: Performed By: #### T SH, T4, CMP, MG #### [facility] [address] [address] [address] Tong Oviedo EGFR-AF SPANISH >60 Normal >=60 [facility] Comment on above: Performed By: #### T SH, T4, CMP, MG #### [facility] [address] [place] [address] Dr. Tong Oviedo EGFR-NON AF SPANISH >60 Normal >=60 [facility] Comment on above: Performed By: #### T SH, T4, CMP, MG #### [facility] [address] [address] [address] Tong Oviedo Globulin (S) [Mass/Vol] 3.7 g/dL Normal [facility] Comment on above: Performed By: #### T SH, T4, CMP, MG #### [facility] [address] [place] [address] Dr. Tong Oviedo Glucose [Mass/Vol] 158 mg/dL Critically high 74-106 [facility] Comment on above: Performed By: #### T SH, T4, CMP, MG #### [facility] [address] [place] [address] Dr. Tong Oviedo Potassium [Moles/Vol] 4.0 mmol/L Normal 3.5-5.1 [facility] Comment on above: Performed By: #### T SH, T4, CMP, MG #### [facility] [address] [place] [address] Dr. Tong Oviedo Protein [Mass/Vol] 7.0 g/dL Normal 6.4-8.2 [facility] Comment on above: Performed By: #### T SH, T4, CMP, MG #### [facility] [address] [place] [address] Dr. Tong Oviedo Sodium [Moles/Vol] 140 mmol/L Normal 136-145 [facility] Comment on above: Performed By: #### T SH, T4, CMP, MG #### [facility] [address] [place] [address] Dr. Tong Oviedo Urea nitrogen [Mass/Vol] 10.0 mg/dL Normal 7.0-18.0 [facility] Comment on above: Performed By: #### T SH, T4, CMP, MG #### [facility] [address] [address] [address] Tong Oviedo Urea nitrogen/Creatinine [Mass ratio] 9.6 mg/mg Normal [facility] Comment on above: Performed By: #### T SH, T4, CMP, MG #### [facility] [address] [address] [address] Tong Oviedo T4on 10-06-2022 T4 [Mass/Vol] 5.40 ug/dL Normal 4.50-12.[address] [facility] Comment on above: Performed By: #### T SH, T4, CMP, MG #### [facility] [address] [address] [address] Tong Oviedo TSHon 10-06-2022 TSH 0.843 uIU/mL Normal 0.358-3.74 0 [facility] Comment on above: Performed By: #### T SH, T4, CMP, MG #### [facility] [address] [address] [address] Tong Oviedo Prothrombin Time INRon 09-03 INR Coag (PPP) [Relative time] 3.0 {INR} [employer] Other Prothrombin Time INR [facility] [employer] Other Prothrombin Time INRon 08-18 INR Coag (PPP) [Relative time] 3.1 {INR} [employer] Other Prothrombin Time INR [facility] [employer] Other Prothrombin Time INRon 07-31 INR Coag (PPP) [Relative time] 3.7 {INR} [employer] Other Prothrombin Time INR [facility] [employer] Other Prothrombin Time INRon 05-26 INR Coag (PPP) [Relative time] 2.8 {INR} [employer] Other Prothrombin Time INR [facility] [employer] Other Prothrombin Time INRon 04-21 INR Coag (PPP) [Relative time] 2.6 {INR} 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) Orders CAD (coronary artery disease) Start: Aspirin EC 81 MG Oral Tablet Delayed Release; TAKE 1 TABLET Weekly Lipid Panel; Status:Active; Requested for:[id number]; Start: Atorvastatin Calcium 20 MG Oral Tablet; TAKE 1 TABLET AT BEDTIME Class 1 obesity with body mass index (BMI) of 31.0 to 31.9 in adult Healthy Weight Tips; Status:Complete; Done: [id number] Some eating tips that can help you lose weight.; Status:Complete; Done: [id number] SocHx: Former smoker Tobacco Use Screening; Status:Complete; Done: [id number] Patient Instructions Please bring all medicines, vitamins, and herbal supplements with you when you come to the office. Prescriptions will not be filled unless you are compliant with your follow up appointments or have a follow up appointment scheduled as per instruction of your physician. Refills should be requested at the time of your visit. Follow up in 1 year Chief Complaint EMIGDIO JEONG is being seen for an annual follow-up of. History of Present Illness Patient returns in follow-up of problems as noted. He states that he has no idea why we wanted to see him. I reminded him that he has a history of coronary disease with previous intervention and bypass surgery and he requires close surveillance in this regard. Detailed questioning reveals no symptoms of angina or anginal equivalent symptomatology because of this we believe him to be stable. He has chronic atrial fibrillation treated with anticoagulant therapy and I believe this is adequately addressed. He has had no problems or complications with high risk medication Coumadin. I know, though, that despite coronary disease is not on aspirin or on a statin and the paramount importance of implementing these medical therapies was discussed and he agrees to do so. We advocated the merits of diet and weight loss as well. Surgical History Problems History of Complete colonoscopy Managed By: Jeremy BROWNE, Pedro Little (Gastroenterology) History of Coronary artery bypass graft History of Leg surgery History of Percutaneous transluminal coronary angioplasty Current Meds Medication NameInstruction Warfarin Sodium 2 MG Oral TabletTAKE 3 TABLETS (6 MG) ORALLY ON Thursday AND THURSDAY. TAKE 2 TABLETS (4 MG) ORALLY ALL OTHER DAYS OR DIRECTED. [place] [facility] Allergies Medication No Known Drug Allergies Recorded By: Riya Judge; 03/15/2021 1:00:19 PM Social History Problems Former smoker (V15.82) (Z87.891) Quit 1984 No alcohol use No caffeine use No illicit drug use Review of Systems Constitutional: not feeling tired. Eyes: no eyesight problems. ENT: no hearing loss and no nosebleeds. Cardiovascular: no intermittent leg claudication and as noted in HPI. Respiratory: no chronic cough and no shortness of breath. Gastrointestinal: no change in bowel habits and no blood in stools. Genitourinary: no urinary frequency and no hematuria. Skin: no skin rashes. Neurological: no seizures and no frequent falls. Psychiatric: no depression and not suicidal. All other systems have been reviewed and are negative for complaint. Vitals Vital Signs Printed in Appendix #1 below. Physical Exam Constitutional: alert and in no acute distress. Eyes: no erythema, swelling or discharge from the eye . Neck: neck is supple, symmetric, trachea midline, no masses and no thyromegaly . Pulmonary: no increased work of breathing or signs of respiratory distress and lungs clear to auscultation. Cardiovascular: carotid pulses 2+ bilaterally with no bruit , JVP was normal, no thrills , regular rhythm, normal S1 and S2, no murmurs , pedal pulses 2+ bilaterally and no edema . Abdomen: abdomen non-tender, no masses and no hepatomegaly . Skin: skin warm and dry, normal skin turgor . Psychiatric judgment and insight is normal and oriented to person, place and time . Signatures Electronically signed by : Fletcher Ziegler MD; Apr 07 2022 5:10PM EST (Author) Appendix #1 Vital Signs Patient: EMIGDIO JEONG; : 1940; Recorded: 07Apr2022 10:35AMRecorded: 07Apr2022 10:21AMRecorded: [id number] 10:16AM Zrinxvkd886, LLE, Ccaarpo071, RUE, Uvhvzpl221, LUE, Sitting Pmxvqxont63, LLE, Byporyy17, RUE, Abmtebp55, LUE, Sitting Heart Rate78, R Radial Height6 ft Jxudiv909 lb BMI Sqckzvrasx94.19 kg/m2 BSA Calculated2.26 Tobacco Useb) No PHQ-2 #1. Over the last 2 weeks have you felt down, depressed or hopeless? (If yes, answer PHQ-9 below)No PHQ-2 #2. Over the last 2 weeks have you felt imer (more content not included)... [employer] Prothrombin Time INRon 02-13 INR Coag (PPP) [Relative time] 2.9 {INR} [employer] Other Prothrombin Time INR [facility] [employer] Other Prothrombin Time INRon 01-16 INR Coag (PPP) [Relative time] 2.2 {INR} [employer] Other Prothrombin Time INR [facility] [employer] Other Prothrombin Time INRon 12-19 INR Coag (PPP) [Relative time] 1.9 {INR} [employer] Other Prothrombin Time INR [facility] [employer] Other Prothrombin Time INRon 11-07 INR Coag (PPP) [Relative time] 2.1 {INR} [employer] Other Prothrombin Time INR [facility] [employer] Other Prothrombin Time INRon 10-24 INR Coag (PPP) [Relative time] 1.8 {INR} [employer] Other Prothrombin Time INR [facility] [employer] Other Prothrombin Time INRon 10-03 INR Coag (PPP) [Relative time] 2.0 {INR} [place] [employer] Other Prothrombin Time INR [facility] [employer] Other Prothrombin Time INRon 09-19 INR Coag (PPP) [Relative time] 1.6 {INR} [place] [employer] Other Prothrombin Time INR [facility] [employer] Other Prothrombin Time INRon 09-05 INR Coag (PPP) [Relative time] 1.7 {INR} [place] [employer] Other Prothrombin Time INR [facility] [employer] Other Prothrombin Time INRon 08-08 INR Coag (PPP) [Relative time] 2.0 {INR} [place] [employer] Other Prothrombin Time INR [facility] [employer] Other Prothrombin Time INRon 07-09 INR Coag (PPP) [Relative time] 1.8 {INR} [place] [employer] Other Prothrombin Time INR [facility] [employer] Other Prothrombin Time INRon 06-11 INR Coag (PPP) [Relative time] 2.0 {INR} [place] [employer] Other Prothrombin Time INR [facility] [employer] Other Prothrombin Time INRon 05-20 INR Coag (PPP) [Relative time] 2.1 {INR} [employer] Other Prothrombin Time INR [facility] [employer] Other Prothrombin Time INRon 05-06 INR Coag (PPP) [Relative time] 1.5 {INR} [employer] Other Prothrombin Time INR [facility] [employer] Other Prothrombin Time INRon 04-04 INR Coag (PPP) [Relative time] 2.3 {INR} [employer] Other Prothrombin Time INR [employer] Other Falls Risk Screeningon 03-15 Fall risk assessment a) No falls within the last year -[facility] y [facility] DO Work Phone: Tobacco use status [facility] b) No -[facility] DO Work Phone: Prothrombin Time INRon 03-07 INR Coag (PPP) [Relative time] 2.3 {INR} [employer] Other Prothrombin Time INR [employer] Other LIPID PANEL (CORONARY RISK 2 )on 05-24-2019 Cholesterol [Mass/Vol] 202 mg/dL High 0 - 199 [facility] Comment on above: Result Comment: . AGE DESIRABLE BORDERLINE HIGH HIGH [...] be performed immediately prior to Metamizole dosing. Performed By: #### L IPID #### [address] [address] Cholesterol in HDL [Mass/Vol] 46.0 mg/dL Normal [facility] Comment on above: Result Comment: . AGE VERY LOW LOW NORMAL HIGH 0-19 Y < 35 < 40 40-45 ---- 20-24 Y ---- < 40 >45 ---- >24 Y ---- < 40 40-60 >60 . Performed By: #### L IPID #### [address] [address] Cholesterol in LDL [Mass/Vol] 131 mg/dL High 0 - 99 [facility] Comment on above: Result Comment: . NEAR BORD AGE DESIRABLE OPTIMAL HIGH HIGH VERY HIGH 0-19 Y 0 - 109 --- 110-129 >/= 130 ---- 20-24 Y 0 - 119 --- 120-159 >/= 160 ---- >24 Y 0 - 99 100-129 130-159 160-189 >/=190 . Performed By: #### L IPID #### [address] [address] Cholesterol in VLDL [Mass/Vol] 25 mg/dL Normal 0 - 40 [facility] Comment on above: Performed By: #### L IPID #### [address] [address] Cholesterol.total/Cho lesterol in HDL [Mass ratio] 4.4 {ratio} Normal [facility] Comment on above: Result Comment: REF VALUES DESIRABLE < 3.4 HIGH RISK > 5.0 Performed By: #### L IPID #### [address] [address] Triglyceride [Mass/Vol] 125 mg/dL Normal 0 - 149 [facility] Comment on above: Result Comment: . AGE DESIRABLE BORDERLINE HIGH HIGH [...] be performed immediately prior to Metamizole dosing. Performed By: #### L IPID #### [address] [address] LIPID PANEL (CORONARY RISK 2 )on 06-19-2019 Cholesterol [Mass/Vol] 181 mg/dL Normal 0 - 199 [facility] Comment on above: Result Comment: . AGE DESIRABLE BORDERLINE HIGH HIGH [...] be performed immediately prior to Metamizole dosing. Performed By: #### L IPID #### [address] [address] Cholesterol in HDL [Mass/Vol] 43.0 mg/dL Normal [facility] Comment on above: Result Comment: . AGE VERY LOW LOW NORMAL HIGH 0-19 Y < 35 < 40 40-45 ---- 20-24 Y ---- < 40 >45 ---- >24 Y ---- < 40 40-60 >60 . Performed By: #### L IPID #### [address] [address] Cholesterol in LDL [Mass/Vol] 120 mg/dL High 0 - 99 [facility] Comment on above: Result Comment: . NEAR BORD AGE DESIRABLE OPTIMAL HIGH HIGH VERY HIGH 0-19 Y 0 - 109 --- 110-129 >/= 130 ---- 20-24 Y 0 - 119 --- 120-159 >/= 160 ---- >24 Y 0 - 99 100-129 130-159 160-189 >/=190 . Performed By: #### L IPID #### [address] [address] Cholesterol in VLDL [Mass/Vol] 18 mg/dL Normal 0 - 40 [facility] Comment on above: Performed By: #### L IPID #### [address] [address] Cholesterol.total/Cho lesterol in HDL [Mass ratio] 4.2 {ratio} Normal [facility] Comment on above: Result Comment: REF VALUES DESIRABLE < 3.4 HIGH RISK > 5.0 Performed By: #### L IPID #### [address] [address] Triglyceride [Mass/Vol] 89 mg/dL Normal 0 - 149 [facility] Comment on above: Result Comment: . AGE DESIRABLE BORDERLINE HIGH HIGH [...] be performed immediately prior to Metamizole dosing. Performed By: #### L IPID #### [address] [address] Prothrombin Timeon 8 INR Coag RelTime (PPP) 2.64 {INR} High 0.90-1.10 [facility] Comment on above: Performed By: #### [id number] ####[facility] [address] [place] [address] Prothrombin time (PT) Coag time (PPP) 29.6 s High 9.8-12.7 [facility] Comment on above: Performed By: #### [id number] ####[facility] [id number] [facility] [address] Prothrombin Timeon 8 INR Coag RelTime (PPP) 1.94 {INR} High 0.90-1.10 [facility] Comment on above: Result Comment: SAMIR ESPARZA NOTE NEW REFERENCE RANGE EFFECTIVE 2017 Performed By: #### [id number] ####[facility] [address] [place] [address] Prothrombin time (PT) Coag time (PPP) 21.7 s High 9.8-12.7 [facility] Comment on above: Result Comment: SAMIR ESPRAZA NOTE NEW REFERENCE RANGE EFFECTIVE 2017 Performed By: #### [id number] ####[facility] [address] [place] [address] Prothrombin Timeon 8 INR Coag RelTime (PPP) 1.39 {INR} High 0.90-1.10 [facility] Comment on above: Result Comment: SAMIR ESPARZA NOTE NEW REFERENCE RANGE EFFECTIVE 2017 Performed By: #### [id number] ####[facility] [address] [place] [address] Prothrombin time (PT) Coag time (PPP) 15.5 s High 9.8-12.7 [facility] Comment on above: Result Comment: SAMIR ESPARZA NOTE NEW REFERENCE RANGE EFFECTIVE 2017 Performed By: #### [id number] ####[facility] [address] [place] [address] Prothrombin Timeon 8 INR Coag RelTime (PPP) 1.52 {INR} High 0.90-1.10 [facility] Comment on above: Result Comment: SAMIR ESPARZA NOTE NEW REFERENCE RANGE EFFECTIVE 2017 Performed By: #### [id number] ####[facility] [address] [place] [address] Prothrombin time (PT) Coag time (PPP) 16.9 s High 9.8-12.7 [facility] Comment on above: Result Comment: SAMIR ESPARZA NOTE NEW REFERENCE RANGE EFFECTIVE 2017 Performed By: #### [id number] ####[facility] [id number] [place] [address] Vital Signs Date Time Vital Sign Value Performing Clinician Facility 11-02-2024 20:38-0400 Body temperature 97.7 [degF] Josue Leigh DO Work Phone: [facility] 11-02-2024 20:38-0400 Diastolic blood pressure 83 mm[Hg] Josue Leigh DO Work Phone: [facility] 11-02-2024 20:38-0400 Heart rate 71 /min Josue Leigh DO Work Phone: [facility] 11-02-2024 20:38-0400 Respiratory rate 16 /min Josue Leigh DO Work Phone: [facility] 11-02-2024 20:38-0400 SaO2% (BldA) [Mass fraction] 98 % Josue Leigh DO Work Phone: [facility] 11-02-2024 20:38-0400 Systolic blood pressure 177 mm[Hg] Josue Leigh DO Work Phone: [facility] 11-02-2024 18:21-0400 Body height 182.88 cm Josue Leigh DO Work Phone: [facility] 11-02-2024 18:21-0400 Body weight 104.32 kg Josue Leigh DO Work Phone: [facility] 10-10-2024 15:49-0400 Heart rate 70 /min Tyson Bhatti MD Work Phone: [facility] 10-10-2024 15:27-0400 Body height 182.9 cm Tyson Bhatti MD Work Phone: [facility] 10-10-2024 15:27-0400 Body mass index (BMI) [Ratio] 31.06 kg/m2 Tyson Bhatti MD Work Phone: [facility] 10-10-2024 15:27-0400 Body weight 103.87 kg Tyson Bhatti MD Work Phone: [facility] 10-10-2024 15:27-0400 Diastolic blood pressure 82 mm[Hg] Tyson Bhatti MD Work Phone: [facility] 10-10-2024 15:27-0400 SaO2% (BldA) [Mass fraction] 97 % Tyson Bhatti MD Work Phone: [facility] 10-10-2024 15:27-0400 Systolic blood pressure 112 mm[Hg] Tyson Bhatti MD Work Phone: [facility] 10-03-2024 09:33-0400 Body height 182.9 cm Christopher Sukhwinder DO Work Phone: [facility] 10-03-2024 09:33-0400 Body mass index (BMI) [Ratio] 31.19 kg/m2 Christopher Sukhwinder DO Work Phone: [facility] 10-03-2024 09:33-0400 Body weight 104.33 kg Christopher Sukhwinder DO Work Phone: [facility] 10-03-2024 09:33-0400 Diastolic blood pressure 86 mm[Hg] Christopher Sukhwinder DO Work Phone: [facility] 10-03-2024 09:33-0400 Systolic blood pressure 128 mm[Hg] Christopher Sukhwinder DO Work Phone: [facility] 08-29-2024 15:02-0400 Body height 182.9 cm Tyson Bhatti MD Work Phone: [facility] 08-29-2024 15:02-0400 Body mass index (BMI) [Ratio] 30.92 kg/m2 Tyson Bhatti MD Work Phone: [facility] 08-29-2024 15:02-0400 Body weight 103.42 kg Tyson Bhatti MD Work Phone: [facility] 08-29-2024 15:02-0400 Diastolic blood pressure 78 mm[Hg] Tyson Bhatti MD Work Phone: [facility] 08-29-2024 15:02-0400 Heart rate 68 /min Tyson Bhatti MD Work Phone: [facility] 08-29-2024 15:02-0400 SaO2% (BldA) [Mass fraction] 95 % Tyson Bhtati MD Work Phone: [facility] 08-29-2024 15:02-0400 Systolic blood pressure 128 mm[Hg] Tyson Bhatti MD Work Phone: [facility] 08-01-2024 14:43-0500 Body height 182.9 cm Tyson Bhatti MD Work Phone: [facility] 08-01-2024 14:43-0500 Diastolic blood pressure 76 mm[Hg] Tyson Bhatti MD Work Phone: [facility] 08-01-2024 14:43-0500 Heart rate 74 /min Tyson Bhatti MD Work Phone: [facility] 08-01-2024 14:43-0500 SaO2% (BldA) [Mass fraction] 94 % Tyson Bhatti MD Work Phone: [facility] 08-01-2024 14:43-0500 Systolic blood pressure 128 mm[Hg] Tyson Bhatti MD Work Phone: [facility] 07-04-2024 09:02-0500 Body height 182.9 cm Kusum Hemmer PA Work Phone: [facility] 07-04-2024 09:02-0500 Body mass index (BMI) [Ratio] 31.22 kg/m2 Kusum Hemmer PA Work Phone: [facility] 07-04-2024 09:02-0500 Body weight 104.42 kg Kusum Hemmer PA Work Phone: [facility] 07-04-2024 09:02-0500 Diastolic blood pressure 72 mm[Hg] Kusum Hemmer PA Work Phone: [facility] 07-04-2024 09:02-0500 Heart rate 82 /min Kusum Hemmer PA Work Phone: [facility] 07-04-2024 09:02-0500 Respiratory rate 16 /min Kusum Hemmer PA Work Phone: [facility] 07-04-2024 09:02-0500 SaO2% (BldA) [Mass fraction] 97 % Kusum Hemmer PA Work Phone: [facility] 07-04-2024 09:02-0500 Systolic blood pressure 106 mm[Hg] Kusum Hemmer PA Work Phone: [facility] 07-01-2024 09:38-0500 Body height 182.9 cm Tyson Bhatti MD Work Phone: [facility] 07-01-2024 09:38-0500 Body mass index (BMI) [Ratio] 31.06 kg/m2 Tyson Bhatti MD Work Phone: [facility] 07-01-2024 09:38-0500 Body weight 103.87 kg Tyson Bhatti MD Work Phone: [facility] 07-01-2024 09:38-0500 Diastolic blood pressure 66 mm[Hg] Tyson Bhatti MD Work Phone: [facility] Comment on above: standing 112 64 07-01-2024 09:38-0500 Heart rate 63 /min Tyson Bhatti MD Work Phone: [facility] 07-01-2024 09:38-0500 SaO2% (BldA) [Mass fraction] 95 % Tyson Bhatti MD Work Phone: [facility] 07-01-2024 09:38-0500 Systolic blood pressure 114 mm[Hg] Tyson Bhatti MD Work Phone: [facility] Comment on above: standing 112 64 06-21-2024 08:54-0500 Body height 182.9 cm Ayesha Livingston [employer] Work Phone: [facility] 06-21-2024 08:54-0500 Body mass index (BMI) [Ratio] 31.22 kg/m2 Ayesha Livingston [employer] Work Phone: [facility] 06-21-2024 08:54-0500 Body weight 104.42 kg Ayesha Livingston [employer] Work Phone: [facility] 06-21-2024 08:54-0500 Diastolic blood pressure 78 mm[Hg] Ayesha Livingston [employer] Work Phone: [facility] 06-21-2024 08:54-0500 Heart rate 87 /min Ayesha Livingston [employer] Work Phone: [facility] 06-21-2024 08:54-0500 Respiratory rate 17 /min Ayesha Livingston [employer] Work Phone: [facility] 06-21-2024 08:54-0500 SaO2% (BldA) [Mass fraction] 98 % Ayesha Livingston [employer] Work Phone: [facility] 06-21-2024 08:54-0500 Systolic blood pressure 108 mm[Hg] Ayesha Livingston [employer] Work Phone: [facility] 05-27-2024 09:46-0500 Body height 182.9 cm Tyson Bhatti MD Work Phone: [facility] 05-27-2024 09:46-0500 Body mass index (BMI) [Ratio] 32.14 kg/m2 Tyson Bhatti MD Work Phone: [facility] 05-27-2024 09:46-0500 Body weight 107.5 kg Tyson Bhatti MD Work Phone: [facility] 05-27-2024 09:46-0500 Diastolic blood pressure 70 mm[Hg] Tyson Bhatti MD Work Phone: [facility] Comment on above: standing 100 66 05-27-2024 09:46-0500 Heart rate 56 /min Tyson Bhatti MD Work Phone: [facility] 05-27-2024 09:46-0500 SaO2% (BldA) [Mass fraction] 94 % Tyson Bhatti MD Work Phone: [facility] 05-27-2024 09:46-0500 Systolic blood pressure 112 mm[Hg] Tyson Bhatti MD Work Phone: [facility] Comment on above: standing 100 66 05-16-2024 12:07-0500 Body mass index (BMI) [Ratio] 32.28 kg/m2 Kacy Pretty DO Work Phone: [facility] 05-16-2024 12:07-0500 Body weight 107.96 kg Kacy Pretty DO Work Phone: [facility] 05-16-2024 12:07-0500 Diastolic blood pressure 80 mm[Hg] Kacy Pretty DO Work Phone: [facility] 05-16-2024 12:07-0500 Heart rate 89 /min Kacy Pretty DO Work Phone: [facility] 05-16-2024 12:07-0500 SaO2% (BldA) [Mass fraction] 97 % Kacy Pretty DO Work Phone: [facility] 05-16-2024 12:07-0500 Systolic blood pressure 132 mm[Hg] Kacy Pretty DO Work Phone: [facility] 04-29-2024 10:00-0500 Body height 182.9 cm Tyson Bhatti MD Work Phone: [facility] 04-29-2024 10:00-0500 Body mass index (BMI) [Ratio] 32.69 kg/m2 Tyson Bhatti MD Work Phone: [facility] 04-29-2024 10:00-0500 Body weight 109.32 kg Tyson Bhatti MD Work Phone: [facility] 04-29-2024 10:00-0500 Diastolic blood pressure 76 mm[Hg] Tyson Bhatti MD Work Phone: [facility] 04-29-2024 10:00-0500 Heart rate 70 /min Tyson Bhatti MD Work Phone: [facility] 04-29-2024 10:00-0500 SaO2% (BldA) [Mass fraction] 95 % Tyson Bhatti MD Work Phone: [facility] 04-29-2024 10:00-0500 Systolic blood pressure 124 mm[Hg] Tyson Bhatti MD Work Phone: [facility] 03-18-2024 10:58-0400 Body height 182.9 cm Tyson Bhatti MD Work Phone: [facility] 03-18-2024 10:58-0400 Body mass index (BMI) [Ratio] 32.41 kg/m2 Tyson Bhatti MD Work Phone: [facility] 03-18-2024 10:58-0400 Body weight 108.41 kg Tyson Bhatti MD Work Phone: [facility] 03-18-2024 10:58-0400 Diastolic blood pressure 74 mm[Hg] Tyson Bhatti MD Work Phone: [facility] 03-18-2024 10:58-0400 Heart rate 94 /min Tyson Bhatti MD Work Phone: [facility] 03-18-2024 10:58-0400 SaO2% (BldA) [Mass fraction] 96 % Tyson Bhatti MD Work Phone: [facility] 03-18-2024 10:58-0400 Systolic blood pressure 118 mm[Hg] Tyson Bhatti MD Work Phone: [facility] 02-29-2024 14:31-0400 Body height 182.9 cm Tyson Bhatti MD Work Phone: [facility] 02-29-2024 14:31-0400 Body mass index (BMI) [Ratio] 32.28 kg/m2 Tyson Bhatti MD Work Phone: [facility] 02-29-2024 14:31-0400 Body weight 107.96 kg Tyson Bhatti MD Work Phone: [facility] 02-29-2024 14:31-0400 Diastolic blood pressure 78 mm[Hg] Tyson Bhatti MD Work Phone: [facility] 02-29-2024 14:31-0400 Heart rate 80 /min Tyson Bhatti MD Work Phone: [facility] 02-29-2024 14:31-0400 SaO2% (BldA) [Mass fraction] 98 % Tyson Bhatti MD Work Phone: [facility] 02-29-2024 14:31-0400 Systolic blood pressure 122 mm[Hg] Tyson Bhatti MD Work Phone: [facility] 02-17-2024 14:46-0400 Body mass index (BMI) [Ratio] 32.41 kg/m2 Tyson Bhatti MD Work Phone: [facility] 02-17-2024 14:46-0400 Body weight 108.41 kg Tyson Bhatti MD Work Phone: [facility] 02-17-2024 14:46-0400 Diastolic blood pressure 68 mm[Hg] Tyson Bhatti MD Work Phone: [facility] 02-17-2024 14:46-0400 Heart rate 83 /min Tyson Bhatti MD Work Phone: [facility] 02-17-2024 14:46-0400 SaO2% (BldA) [Mass fraction] 97 % Tyson Bhatti MD Work Phone: [facility] 02-17-2024 14:46-0400 Systolic blood pressure 122 mm[Hg] Tyson Bhatti MD Work Phone: [facility] 12-23-2023 08:15-0400 Body temperature 98.4 [degF] DO Emigdio House Work Phone: [facility] 12-23-2023 08:15-0400 Diastolic blood pressure 96 mm[Hg] DO Emigdio House Work Phone: [facility] 12-23-2023 08:15-0400 Heart rate 98 /min DO Emigdio House Work Phone: [facility] 12-23-2023 08:15-0400 Respiratory rate 18 /min DO Emigdio House Work Phone: [facility] 12-23-2023 08:15-0400 SaO2% (BldA) [Mass fraction] 95 % DO Emigdio House Work Phone: [facility] 12-23-2023 08:15-0400 Systolic blood pressure 138 mm[Hg] DO Emigdio House Work Phone: [facility] 12-23-2023 05:37-0400 Body weight 102.6 kg DO Emigdio House Work Phone: [facility] 12-18-2023 13:45-0400 Body height 182.88 cm DO Emigdio House Work Phone: [facility] 12-17-2023 15:53-0400 Diastolic blood pressure 103 mm[Hg] DO Emigdio House Work Phone: [facility] 12-17-2023 15:53-0400 Heart rate 74 /min DO Emigdio House Work Phone: [facility] 12-17-2023 15:53-0400 Respiratory rate 16 /min DO Emigdio House Work Phone: [facility] 12-17-2023 15:53-0400 SaO2% (BldA) [Mass fraction] 99 % DO Emigdio House Work Phone: [facility] 12-17-2023 15:53-0400 Systolic blood pressure 153 mm[Hg] DO Emigdio House Work Phone: [facility] 12-17-2023 10:40-0400 Body temperature 97.8 [degF] DO Emigdio House Work Phone: [facility] 12-17-2023 10:39-0400 Body height 182.88 cm DO Emigdio House Work Phone: [facility] 12-17-2023 10:39-0400 Body weight 106.1 kg DO Emigdio House Work Phone: [facility] 07-29-2023 09:50-0500 Body height 182.88 cm DO Emigdio House Work Phone: [facility] 07-29-2023 09:50-0500 Body mass index (BMI) [Ratio] 28.8 kg/m2 DO Emigdio House Work Phone: [facility] 07-29-2023 09:50-0500 Body temperature 100.6 [degF] DO Emigdio House Work Phone: [facility] 07-29-2023 09:50-0500 Body weight 96.61 kg DO Emigdio House Work Phone: [facility] 07-29-2023 09:50-0500 Diastolic blood pressure 90 mm[Hg] DO Emigdio House Work Phone: [facility] 07-29-2023 09:50-0500 Heart rate 51 /min DO Emigdio Villanueva Work Phone: [facility] 07-29-2023 09:50-0500 Respiratory rate 18 /min DO Emigdio Villanueva Work Phone: [facility] 07-29-2023 09:50-0500 SaO2% (BldA) [Mass fraction] 97 % DO Emigdio Villanueva Work Phone: [facility] 07-29-2023 09:50-0500 Systolic blood pressure 140 mm[Hg] DO Emigdio Villanueva Work Phone: [facility] 07-22-2023 10:45-0500 Body height 182.[address] 07-22-2023 10:45-0500 Body mass index (BMI) [Ratio] 29.84 kg/m2 [address] 07-22-2023 10:45-0500 Body weight 99.[address] 07-22-2023 10:45-0500 Diastolic blood pressure 84 mm[Hg] [address] 07-22-2023 10:45-0500 Systolic blood pressure 138 mm[Hg] [address] 06-19-2023 13:36-0500 Diastolic blood pressure 88 mm[Hg] Fletcher Ziegler MD Work Phone: [facility] 06-19-2023 13:36-0500 Systolic blood pressure 134 mm[Hg] Fletcher Ziegler MD Work Phone: [facility] 06-19-2023 13:20-0500 Body height 182.9 cm Fletcher Ziegler MD Work Phone: [facility] 06-19-2023 13:20-0500 Body mass index (BMI) [Ratio] 29.84 kg/m2 Fletcher Ziegler MD Work Phone: [facility] 06-19-2023 13:20-0500 Body weight 99.79 kg Fletcher Ziegler MD Work Phone: [facility] 06-19-2023 13:20-0500 Heart rate 86 /min Fletcher Ziegler MD Work Phone: [facility] 03-15-2021 13:00-0400 Body height 185.42 cm Emigdio P House Work Phone: [facility] [address] DO Work Phone: 03-15-2021 13:00-0400 Body mass index (BMI) [Ratio] 29.95 kg/m2 Emigdio P House Work Phone: [facility] [address] DO Work Phone: 03-15-2021 13:00-0400 Body surface area Derived from formula 2.27 m2 Emigdio P House Work Phone: [facility] [address] DO Work Phone: 03-15-2021 13:00-0400 Body weight 102.97 kg Emigdio P House Work Phone: [facility] [address] DO Work Phone: 03-15-2021 13:00-0400 Diastolic blood pressure 98 mm[Hg] Emigdio P House Work Phone: [facility] [address] DO Work Phone: 03-15-2021 13:00-0400 Heart rate 84 /min Emigdio P House Work Phone: [facility] [address] DO Work Phone: 03-15-2021 13:00-0400 Systolic blood pressure 132 mm[Hg] Emigdio P House Work Phone: [facility] [address] DO Work Phone: Encounters Encounter Date Encounter Type Care Provider Facility Start: 11-10-2024 End: 11-10-2024 Patient encounter procedure Josue Leigh DO Work Phone: [facility] Work Phone: Start: 11-10-2024 End: 11-10-2024 ambulatory Isabelle Rucker Facility:[facility] Start: 11-10-2024 End: 11-10-2024 Telephone encounter Isabelle Rucker [employer] Work Phone: [facility] Start: 11-02-2024 End: 11-02-2024 Emergency department patient visit Josue Leigh DO Work Phone: [facility] Work Phone: Start: 10-10-2024 End: 10-10-2024 Office outpatient visit 15 minutes Tyson Bhatti MD Work Phone: [facility] Comment on above: Longstanding persist ent atrial fibrillation (CMS/HCC) Start: 10-10-2024 End: 10-10-2024 ambulatory TYSON BHATTI Not Available Start: 10-03-2024 End: 10-03-2024 Bamboo flowsheet Christopher Sukhwinder DO Work Phone: [facility] Start: 10-03-2024 End: 10-03-2024 Bamboo flowsheet Christopher Sukhwinder DO Work Phone: [facility] Start: 10-03-2024 End: 10-03-2024 Office outpatient visit 15 minutes Christopher Sukhwinder DO Work Phone: [facility] Comment on above: 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); History of ischemic stroke Start: 10-03-2024 End: 10-03-2024 ambulatory KACY PRETTY Not Available Start: 08-29-2024 End: 08-29-2024 Office outpatient visit 25 minutes Tyson Bhatti MD Work Phone: [facility] Comment on above: Alzheimer's disease with late onset (CODE) (CMS/HCC) (Primary Dx); Longstanding persistent atrial fibrillation (CMS/HCC) Start: 08-29-2024 End: 08-29-2024 ambulatory TYSON BHATTI Not Available Start: 08-29-2024 End: 08-29-2024 Bamboo flowsheet Tyson Bhatti MD Work Phone: [facility] Start: 08-29-2024 End: 08-29-2024 Bamboo flowsheet Tyson Bhatti MD Work Phone: [facility] Start: 08-01-2024 End: 08-01-2024 Assay of hemosiderin, quant Tyson Bhatti MD Work Phone: [facility] Start: 08-01-2024 End: 08-01-2024 Patient encounter procedure Tyson Bhatti MD Work Phone: [facility] Comment on above: Routine general medi tressa examination at health care facility (Primary Dx); ACP (advance care planning); Longstanding persistent atrial fibrillation (CMS/HCC) Start: 08-01-2024 End: 08-01-2024 ambulatory TYSON BHATTI Not Available Start: 08-01-2024 End: 08-01-2024 Bamboo flowsheet Tyson Bhatti MD Work Phone: [facility] Start: 08-01-2024 End: 08-01-2024 Bamboo flowsheet Tyson Bhatti MD Work Phone: [facility] Start: 07-04-2024 End: 07-04-2024 Bamboo flowsheet Kusum Saucedo PA Work Phone: [facility] Start: 07-04-2024 End: 07-04-2024 Bamboo flowsheet Kusum Saucedo PA Work Phone: [facility] Start: 07-04-2024 End: 07-04-2024 Office outpatient visit 15 minutes Kusum XAVIER Work Phone: [facility] Comment on above: Longstanding persist ent atrial fibrillation (CMS/HCC) (Primary Dx); Anticoagulant long-term use Start: 07-04-2024 End: 07-04-2024 ambulatory KUSUM SAUCEDO Not Available Start: 07-01-2024 End: 07-01-2024 Bamboo flowsheet Tyson Bhatti MD Work Phone: [facility] Start: 07-01-2024 End: 07-01-2024 Bamboo flowsheet Tyson Bhatti MD Work Phone: [facility] Start: 07-01-2024 End: 07-01-2024 Office outpatient visit 25 minutes Tyson Bhatti MD Work Phone: [facility] Comment on above: Acute non-recurrent pansinusitis (Primary Dx); Longstanding persistent atrial fibrillation (CMS/HCC); Dementia in other diseases classified elsewhere, severe, with agitation (CMS/HCC); Alzheimer's disease with late onset (CODE) (CMS/HCC); Orthostatic hypotension Start: 07-01-2024 End: 07-01-2024 ambulatory TYSON BHATTI Not Available Start: 06-28-2024 End: 06-29-2024 Clinisync Result Encounter Kusum XAVIER Work Phone: [facility] Unsolicited Start: 06-28-2024 End: 06-29-2024 Clinisync Result Encounter Kusum Saucedo PA Work Phone: [facility] Unsolicited Start: 06-21-2024 End: 06-21-2024 Bamboo flowsheet Ayesha Livingston [employer] Work Phone: [facility] Start: 06-21-2024 End: 06-21-2024 Bamboo flowsheet Ayesha Livingston [employer] Work Phone: [facility] Start: 06-21-2024 End: 06-21-2024 Office outpatient visit 25 minutes Ayesha Livignston [employer] Work Phone: [facility] Comment on above: Cerumen debris on ty mpanic membrane of both ears (Primary Dx); Weakness; Other fatigue; Acute non-recurrent pansinusitis; Longstanding persistent atrial fibrillation (CMS/HCC); Dementia in other diseases classified elsewhere, moderate, without behavioral disturbance, psychotic disturbance, mood disturbance, and anxiety (CMS/HCC); Unspecified atrial fibrillation (CMS/HCC); Dementia in other diseases classified elsewhere, severe, with agitation (CMS/HCC); Alzheimer's disease with late onset (CODE) (CMS/HCC) Start: 06-21-2024 End: 06-21-2024 ambulatory AYESHA LIVINGSTON Not Available Start: 05-27-2024 End: 05-27-2024 Bamboo flowsheet Tyson Bhatti MD Work Phone: [facility] Start: 05-27-2024 End: 05-27-2024 Bamboo flowsheet Tyson Bhatti MD Work Phone: [facility] Start: 05-27-2024 End: 05-27-2024 Office outpatient visit 25 minutes Tyson Bhatti MD Work Phone: [facility] Comment on above: Orthostatic hypotens ion (Primary Dx); Longstanding persistent atrial fibrillation ([facility] Start: 05-27-2024 End: 05-27-2024 ambulatory TYSON BHATTI Not Available Start: 05-16-2024 End: 05-16-2024 Bamboo flowsheet Christopher Sukhwinedr DO Work Phone: [facility] Start: 05-16-2024 End: 05-16-2024 Bamboo flowsheet Christopher Sukhwinder DO Work Phone: [facility] Start: 05-16-2024 End: 05-16-2024 Office outpatient visit 25 minutes Christopher Sukhwinder DO Work Phone: [facility] Comment on above: 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 ([facility]) (Primary Dx); History of ischemic stroke Start: 05-16-2024 End: 05-16-2024 ambulatory KACY PRETTY Not Available Start: 04-29-2024 End: 04-29-2024 Bamboo flowsheet Tyson Bhatti MD Work Phone: [facility] Start: 04-29-2024 End: 04-29-2024 Bamboo flowsheet Tyson Bhatti MD Work Phone: [facility] Start: 04-29-2024 End: 04-29-2024 Office outpatient visit 25 minutes Tyson Bhatti MD Work Phone: [facility] Comment on above: Longstanding persist ent atrial fibrillation (CMS/HCC) Start: 04-29-2024 End: 04-29-2024 ambulatory TYSON BHATTI Not Available Start: 03-18-2024 End: 03-18-2024 Bamboo flowsheet Tyson Bhatti MD Work Phone: [facility] Start: 03-18-2024 End: 03-18-2024 Bamboo flowsheet Tyson Bhatti MD Work Phone: [facility] Start: 03-18-2024 End: 03-18-2024 Office outpatient visit 15 minutes Tyson Bhatti MD Work Phone: [facility] Comment on above: Longstanding persist ent atrial fibrillation (CMS/HCC) Start: 03-18-2024 End: 03-18-2024 ambulatory TYSON BHATTI Not Available Start: 02-29-2024 End: 02-29-2024 Office outpatient visit 25 minutes Tyson Bhatti MD Work Phone: [facility] Comment on above: LVH (left ventricula r hypertrophy) (Primary Dx); Longstanding persistent atrial fibrillation (CMS/HCC); Localized edema Start: 02-29-2024 End: 02-29-2024 ambulatory TYSON BHATTI Not Available Start: 02-17-2024 End: 02-17-2024 Office outpatient visit 25 minutes Tyson Bhatti MD Work Phone: [facility] Comment on above: Longstanding persist ent atrial fibrillation (CMS/HCC) (Primary Dx); 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); History of coronary artery bypass graft; Moderate late onset 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 disturbance, psychotic disturbance, mood disturbance, or anxiety (CMS/HCC); LVH (left ventricular hypertrophy); Localized edema Start: 02-17-2024 End: 02-17-2024 ambulatory TYSON BHATTI Not Available Start: 02-17-2024 End: 02-17-2024 Bamboo flowsheet Tyson Bhatti MD Work Phone: [facility] Start: 02-17-2024 End: 02-17-2024 Bamboo flowsheet Tyson Bhatti MD Work Phone: [facility] Start: 02-10-2024 End: 02-10-2024 Chart abstracting Tyson Bhatti MD Work Phone: [facility] Start: 02-10-2024 End: 02-10-2024 ambulatory DO Emigdio House Work Phone: [facility] Work Phone: Start: 02-10-2024 End: 02-10-2024 Patient encounter procedure DO Emigdio House Work Phone: [facility] Work Phone: Start: 01-18-2024 End: 01-18-2024 ambulatory CHRISTOPHER SUKHWINDER Not Available Start: 01-06-2024 End: 01-06-2024 ambulatory EMIGDIO P HOUSE Facility:[facility] Start: 12-28-2023 End: 12-28-2023 ambulatory CHRISTOPHER SUKHWINDER Not Available Start: 12-17-2023 End: 12-23-2023 Evaluation and management of inpatient DO Emigdio House Work Phone: [facility] Work Phone: Start: 12-14-2023 End: 12-14-2023 ambulatory [facility] Work Phone: Start: 12-14-2023 End: 12-14-2023 Patient encounter procedure [facility] Work Phone: Start: 12-07-2023 End: 12-07-2023 Patient encounter procedure [facility] Work Phone: Start: 12-06-2023 Non-patient / Non-visit DO Mae rles House Work Phone: [facility] Work Phone: Start: 11-30-2023 End: 11-30-2023 ambulatory EMIGDIO P HOUSE Facility:[facility] Start: 11-24-2023 End: 11-24-2023 Patient encounter procedure [facility] Work Phone: Start: 10-26-2023 End: 10-26-2023 ambulatory [facility] Work Phone: Start: 10-26-2023 End: 10-26-2023 Patient encounter procedure [facility] Work Phone: Start: 10-23-2023 End: 10-23-2023 ambulatory CARLEEN PERRYMOMO Not Available Start: 10-05-2023 End: 10-05-2023 ambulatory [facility] Work Phone: Start: 10-05-2023 End: 10-05-2023 Patient encounter procedure [facility] Work Phone: Start: 08-04-2023 End: 08-04-2023 Patient encounter procedure [facility] Work Phone: Start: 07-29-2023 End: 07-29-2023 ambulatory DO Emigdio House Work Phone: [facility] Work Phone: Start: 07-29-2023 End: 07-29-2023 Patient encounter procedure DO Emigdio House Work Phone: [facility] Work Phone: Start: 07-22-2023 End: 07-23-2023 ambulatory FLETCHER ZIEGLER [facility] Start: 07-22-2023 End: 07-22-2023 Subsequent hospital visit by physician Amrita Diego Echo/Vasc Room 2 [facility] Comment on above: Murmur, heart Start: 06-19-2023 End: 06-19-2023 Office outpatient visit 25 minutes Fletcher Ziegler MD Work Phone: [facility] Comment on above: Coronary artery dise ase 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 (Primary Dx); History of coronary artery bypass graft; History of PTCA; Permanent atrial fibrillation (CMS/HCC); High risk medication use; Murmur, heart Start: 06-19-2023 End: 06-19-2023 ambulatory FLETCHER Lazo [facility] Ambulatory Start: 06-17-2023 ([facility] R A/c) [facility] Start: 06-17-2023 End: 06-17-2023 ambulatory DO Emigdio House Work Phone: [employer] Other Start: 06-17-2023 End: 06-17-2023 Discharged Recurring DO Emigdio House Work Phone: [facility] Work Phone: Start: 05-27-2023 ([facility] R A/c) [facility] Repeat A/C Mishel [facility] Start: 05-27-2023 End: 05-27-[address] Other [employer] Other Start: 05-21-2023 End: 05-21-2023 ambulatory Yelena Cronint Other [employer] Other Start: 05-21-2023 Telephone encounter Yelena Kelley [facility] Start: 05-11-2023 End: 05-11-2023 ambulatory Yelena Fitt Other [employer] Other Start: 05-11-2023 Telephone encounter Yelenatadeo Kelley [facility] Start: 05-06-2023 ([facility] R A/c) [facility] Repeat A/C Rosalia Peres [facility] Start: 05-06-2023 End: 05-06-2023 ambulatory Yelena Fitt Other [employer] Other Start: 05-06-2023 Telephone encounter Yelena Khushi [facility] Start: 04-02-2023 End: 04-02-2023 ambulatory Yelena Fitt Other [employer] Other Start: 04-02-2023 Telephone encounter Yelena Khushi [facility] Start: 03-18-2023 End: 03-18-2023 ambulatory Yelena Fitt Other [employer] Other Start: 03-18-2023 Telephone encounter Yelena Khusih [facility] Start: 03-03-2023 ([facility] R A/c) [facility] Repeat A/C Yelena Mehrdadt [facility] Start: 03-03-2023 End: 03-03-2023 ambulatory Yelena Fitt Other [employer] Other Start: 02-04-2023 End: 02-04-2023 ambulatory Yelena Fitt Other [employer] Other Start: 02-04-2023 Telephone encounter Yelena Khushi [facility] Start: 01-21-2023 ([facility] R A/c) [facility] Repeat A/C Florentino [facility] Start: 01-21-2023 End: 01-21-2023 ambulatory Florentino Sanner Other [employer] Other Start: 01-13-2023 End: 01-13-2023 ambulatory Yelena Fitt Other [employer] Other Start: 01-13-2023 Telephone encounter Yelena Khushi [facility] Start: 12-16-2022 ([facility] R A/c) [facility] Repeat A/C Florentino [facility] Start: 12-16-2022 End: 12-16-2022 ambulatory Florentino Sanner Other [employer] Other Start: 10-30-2022 End: 10-30-2022 ambulatory Yelena Fitt Other [employer] Other Start: 10-30-2022 Telephone encounter Yelena Khushi [facility] Start: 10-06-2022 End: 10-07-[address] EMIGDIO VILLANUEVA Facility: Start: 10-01-2022 End: 10-01-2022 ambulatory Yelena Fitt Other [employer] Other Start: 10-01-2022 Telephone encounter Yelena Khushi [facility] Start: 09-03-2022 ([facility] R A/c) [facility] Repeat A/C Ros[facility] Start: 09-03-2022 End: 09-03-2022 ambulatory Rosalia Bennington Other [employer] Other Start: 08-18-2022 ([facility] R A/c) [facility] Repeat A/C Ros[facility] Start: 08-18-2022 End: 08-18-2022 ambulatory Rosalia Bennington Other [employer] Other Start: 08-14-2022 End: 08-14-2022 ambulatory Yelena Fitt Other [employer] Other Start: 08-14-2022 Telephone encounter Yelena Mehrdadt [facility] Start: 07-31-2022 ([facility] R A/c) [facility] Start: 07-31-2022 End: 07-31-2022 ambulatory Yelena Fitt Other [employer] Other Start: 07-31-2022 Telephone encounter Yelena Khushi Kelley [facility] Start: 07-10-2022 ([facility] R A/c) [facility] Repeat A/C Rosalia Peres [facility] Start: 07-10-2022 End: 07-10-2022 ambulatory Rosaliajn Peres Other [employer] Other Start: 07-07-2022 End: 07-07-2022 ambulatory Yelena Fitt Other [employer] Other Start: 07-07-2022 Telephone encounter Yelena Fitt [facility] Start: 06-19-2022 End: 06-19-2022 ambulatory Yelena Fitt Other [employer] Other Start: 06-19-2022 Telephone encounter Yelena Fitt [facility] Start: 05-26-2022 ([facility] R A/c) [facility] Repeat A/C Dustyisabel Lucero [facility] Start: 05-26-2022 End: 05-26-2022 ambulatory Dusty Lucero Other [employer] Other Start: 04-21-2022 ([facility] R A/c) [facility] Repeat A/C Yelena Mehrdadt [facility] Start: 04-21-2022 End: 04-21-2022 ambulatory Yelena Fitt Other [employer] Other Start: 04-07-[address] [facility] Start: 03-13-2022 End: 03-13-2022 ambulatory Yelena Fitt Other [employer] Other Start: 03-13-2022 Telephone encounter Yelena Fitt [facility] Start: 02-13-2022 ([facility] R A/c) [facility] Repeat A/C Yelena Fitt [facility] Start: 02-13-2022 End: 02-13-2022 ambulatory Yelena Fitt Other [employer] Other Start: 01-16-2022 ([facility] R A/c) [facility] Repeat A/C Yelnea Fitt [facility] Start: 01-16-2022 End: 01-16-2022 ambulatory Yelena Fitt Other [employer] Other Start: 12-19-2021 ([facility] R A/c) [facility] Repeat A/C Yelena Fitt [facility] Start: 12-19-2021 End: 12-19-2021 ambulatory Yelena Fitt Other [employer] Other Start: 12-18-2021 End: 12-18-2021 ambulatory Yelena Fitt Other [employer] Other Start: 12-18-2021 Telephone encounter Yelena Mehrdadt [facility] Start: 12-05-2021 End: 12-05-2021 ambulatory Yelena Fitt Other [employer] Other Start: 12-05-2021 Telephone encounter Yelena Mehrdadt [facility] Start: 11-07-2021 ([facility] R A/c) [facility] Repeat A/C Yelena Fitt [facility] Start: 11-07-2021 End: 11-07-2021 ambulatory Yelena Fitt Other [employer] Other Start: 10-24-2021 ([facility] R A/c) [facility] Repeat A/C Yelena Fitt [facility] Start: 10-24-2021 End: 10-24-2021 ambulatory Yelena Fitt Other [employer] Other Start: 10-03-2021 ([facility] R A/c) [facility] Repeat A/C Yelena Fitt [facility] Start: 10-03-2021 End: 10-03-2021 ambulatory Yelena Fitt Other [employer] Other Start: 09-19-2021 ([facility] R A/c) [employer] Repeat A/C Yelena Fitt [facility] Start: 09-19-2021 End: 09-19-2021 ambulatory Yelena Fitt Other [employer] Other Start: 09-05-2021 ([facility] R A/c) [facility] Repeat A/C Yelena Fitt [facility] Start: 09-05-2021 End: 09-05-2021 ambulatory Yelena Fitt Other [employer] Other Start: 09-05-2021 Telephone encounter Yelena Fitt [facility] Start: 08-08-2021 ([facility] R A/c) [facility] Repeat A/C Yelena Fitt [facility] Start: 08-08-2021 End: 08-08-2021 ambulatory Yelena Fitt Other [employer] Other Start: 08-07-2021 End: 08-07-2021 ambulatory Yelena Fitt Other [employer] Other Start: 08-07-2021 Telephone encounter Yelena Fitt [facility] Start: 07-09-2021 ([facility] R A/c) [facility] Repeat A/C Yelena Fitt [facility] Start: 07-09-2021 End: 07-09-2021 ambulatory Yelena Fitt Other [employer] Other Start: 06-11-2021 ([facility] R A/c) [facility] Repeat A/C Yelena Fitt [facility] Start: 06-11-2021 End: 06-11-2021 ambulatory Yelena Fitt Other [employer] Other Start: 05-29-2021 End: 05-29-2021 ambulatory Yelena Fitt Other [employer] Other Start: 05-29-2021 Telephone encounter Yelena Puri [facility] Start: 05-20-2021 ([facility] R A/c) [facility] Repeat A/C Yelena Fitt [facility] Start: 05-20-2021 End: 05-20-2021 ambulatory Yelena Fitt Other [employer] Other Start: 05-15-2021 Rx Renewal Emigdio Clifton Buckner e Work Phone: [facility] [employer] DO Work Phone: Start: 05-06-2021 ([facility] R A/c) [facility] Repeat A/C Yelena Fitt [facility] Start: 05-06-2021 End: 05-06-2021 ambulatory Yelena Fitt Other [employer] Other Start: 04-04-2021 ([facility] R A/c) [facility] Repeat A/C Yelena Fitt [facility] Start: 03-15-2021 Office outpatient vi sit 25 minutes Emigdio [facility] Work Phone: [facility] [employer] Work Phone: Start: 03-07-2021 ([facility] R A/c) [facility] Repeat A/C Yelena Fitt [facility] Start: 01-14-2018 Patient encounter DARCI GAO Fac ility:[id number] Start: 12-16-2017 Patient encounter BEJARANO GAO Fac ility:[id number] Start: 11-17-2017 Patient encounter DARCI GAO Fac ility:[id number] Start: 10-22-2017 Patient encounter DARCI GAO Fac ility:[id number] Start: 10-08-2017 Patient encounter DARCI GAO Fac ility:[id number] Procedures Date Procedure Procedure Detail Performing Clinician Start: 11-10-2024 X-ray of left knee, four views Josue Leigh DO Work Phone: Start: 11-02-2024 CT cervical spine without contrast Josue Leigh DO Work Phone: Start: 11-02-2024 CT of head without contrast Josue valdez DO Work Phone: Start: 11-02-2024 Plain chest X-ray Josue Leigh DO Work Phone: Start: 11-02-2024 X-ray of left knee, four views Josue Leigh DO Work Phone: Start: 10-10-2024 Prothrombin time Tyson Bhatti MD Work Phone: Start: 08-29-2024 Prothrombin time Tyson Bhatti MD Work Phone: Start: 08-01-2024 Prothrombin time Tyson Bhatti MD Work Phone: Start: 07-04-2024 Prothrombin time [employer] Work Phone: Start: 07-01-2024 Prothrombin time Tyson Bhatti MD Work Phone: Start: 06-28-2024 URINALYSIS MICROSCOPIC WITH REFLEX CULTURE [employer] Work Phone: Start: 05-27-2024 Prothrombin time Tyson Bhatti MD Work Phone: Start: 04-29-2024 Complete blood count with white cell differential, automated Tyson Bhatti MD Work Phone: Start: 04-29-2024 End: 04-29-2024 Comprehensive metabolic panel Tyson Bhatti MD Work Phone: Start: 03-18-2024 Prothrombin time Tyson Bhatti MD Work Phone: Start: 02-29-2024 Prothrombin time Tyson Bhatti MD Work Phone: Start: 02-17-2024 Prothrombin time Tyson Bhatti MD Work Phone: Start: 12-21-2023 Doppler ultrasonography of bilateral carotid arteries DO Emigdio Villanueva Work Phone: Start: 12-18-2023 MRI of head DO Emigdio Villanueva Work Phone: Start: 12-17-2023 CT of head without contrast DO Emigdio amador Work Phone: Start: 07-22-2023 TRANSTHORACIC ECHO (TTE) COMPLETE FLETCHER ZIEGLER Start: 01-24-2023 History of coronary artery bypass grafting History of coronary artery bypass graft Fletcher Ziegler MD Work Phone: Start: 01-24-2023 History of percutaneous transluminal coronary angioplasty History of PTCA Fletcher Ziegler MD Work Phone: Start: 05-24-2019 Lipid 1996 panel - Serum or Plasma Fletcher Ziegler MD Work Phone: Start: 06-08-2018 Total colonoscopy Emigdio Lazo [employer] Work Phone: Coronary artery bypa ss graft Emigdio Lazo [employer] Work Phone: History of coronary artery bypass grafting History of coronary artery bypass graft Emigdio Lazo [employer] Work Phone: History of coronary artery bypass grafting History of coronary artery bypass graft Fletcher Ziegler MD Work Phone: History of coronary artery bypass grafting History of coronary artery bypass graft Tyson Bhatti MD Work Phone: History of percutane ous transluminal coronary angioplasty History of PTCA Fletcher Ziegler MD Work Phone: Leg repair Emigdio Lazo [employer] Work Phone: Percutaneous translu kory coronary angioplasty Meigdio P [employer] Work Phone: Plan of Treatment Date Care Activity Detail Author Start: 03-20-2025 End: 03-20-2025 Patient encounter procedure 03/20/2025 3:30 PM EDT Office Visit BERTHA GRIDER [address] [place] [phone] Kacy Pretty DO [address] [place] [id number] BERTHA GRIDER Start: 02-06-2025 Influenza vaccination Influenz a Vaccine (Season Ended) [facility] Start: 11-28-2024 End: 11-28-2024 Patient encounter procedure 11/28/2024 3:30 PM EDT Office Visit [facility] [address] [place] [phone] Tyson Bhatti MD [address] [place] [address] [facility] Start: 11-10-2024 End: 11-10-2025 XR Knee - left 4 Views XR knee 4+ views left Imaging Routine History of fall Pain and swelling of left knee Expected: 11/10/2024 (Approximate), Expires: 11/10/2025 [facility] Work Phone: Comment on above: Expected: 11/10/2024 (Approximate), Expires: 11/10/2025 Start: 10-10-2024 End: 10-10-2024 Patient encounter procedure 10/10/2024 3:30 PM EDT Office Visit [facility] [address] [facility] [address] [place] [phone] Tyson Bhatti MD [address] [facility] [address] [place] [address] [facility] Start: 10-03-2024 End: 10-03-2024 Patient encounter procedure BERTHA GRIDER Comment on above: Arrived Start: 09-28-2024 End: 09-28-2024 Patient encounter procedure [facility] [address] Start: 08-29-2024 End: 08-29-2024 Patient encounter procedure [facility] Comment on above: Arrived Start: 08-01-2024 End: 08-01-2024 Patient encounter procedure [facility] Comment on above: Arrived Start: 07-04-2024 End: 07-04-2024 Patient encounter procedure [facility] Comment on above: Arrived Start: 07-01-2024 End: 07-01-2024 Patient encounter procedure [facility] Comment on above: Arrived Start: 06-21-2024 End: 06-21-2025 CBC panel - Blood by Automated count CBC Lab Routine Cerumen debris on tympanic membrane of both ears Weakness Acute non-recurrent pansinusitis Expected: 06/21/2024 (Approximate), Expires: 06/21/2025 [facility] Work Phone: Comment on above: Expected: 06/21/2024 (Approximate), Expires: 06/21/2025 Start: 06-21-2024 End: 06-21-2025 Comprehensive metabolic 2000 panel - Serum or Plasma Comprehensive metabolic panel Lab Routine Weakness Other fatigue Expected: 06/21/2024 (Approximate), Expires: 06/21/2025 [facility] Comment on above: Expected: 06/21/2024 (Approximate), Expires: 06/21/2025 Start: 06-21-2024 End: 06-21-2024 Patient encounter procedure 06/21/2024 9:00 AM EST Office Visit [facility] [address] [facility] [address] [place] [address] Ayesha Livingston NP [address] [facility] [address] [place] [address] Arrived [facility] Comment on above: Arrived Start: 05-27-2024 End: 05-27-2024 Patient encounter procedure [facility] Comment on above: Arrived Start: 05-24-2024 Lipid panel Lipid Panel [facility] Start: 05-16-2024 End: 05-16-2024 Patient encounter procedure [facility] [address] Comment on above: Arrived Start: 04-29-2024 End: 04-29-2024 Patient encounter procedure [facility] Comment on above: Arrived Start: 03-18-2024 End: 03-18-2024 Patient encounter procedure [facility] Comment on above: Arrived Start: 02-17-2024 End: 02-17-2024 Patient encounter procedure [facility] Comment on above: Arrived Start: 02-07-2024 Influenza vaccination Influenza Vacc ine (#1) [facility] Start: 12-22-2023 [facility] Start: 12-18-2023 End: 12-18-2023 Patient encounter procedure 12/18/2023 2:40 PM EDT Office Visit [facility] [address] [facility] [address] [place] [address] Fletcher Ziegler MD [address] [facility] [place] [address] [facility] Start: 12-18-2023 Comprehensive metabo lic 2000 panel - Serum or Plasma [facility] Start: 12-18-2023 [facility] Start: 12-17-2023 Referral to neurologist [facility] Start: 12-17-2023 Hospital admission [facility] Start: 12-17-2023 Physical therapy procedure [facility] Start: 12-17-2023 Referral to occupational therapist [facility] Start: 12-17-2023 Referral to speech a nd language therapy service [facility] Start: 12-17-2023 End: 12-17-2023 [facility] Start: 07-07-2023 End: 07-07-2023 Patient encounter procedure 07/07/2023 12:30 PM EST Appointment [facility] [address] [facility] [address] [place] [address] [facility] Start: 06-19-2023 End: 06-19-2025 US Heart Transthoracic Transthoracic Echo (TTE) Complete Echocardiography Routine Murmur, heart Expected: 06/19/2023 (Approximate), Expires: 06/19/2025 [facility] Service Area Work Phone: Comment on above: Expected: 06/19/2023 (Approximate), Expires: 06/19/2025 Start: 02-06-2023 Influenza vaccination Influenza Vacc ine (#1) [facility] Start: 03-19-2022 FUV, Provider: Fletcher Ziegler, Status: Pen, Time: 1:10 PM FUV, Provider: Fletcher Ziegler, Status: Pen, Time: 1:10 PM [facility] DO Work Phone: Start: 1992 Zoster Vaccines (1 o f 2) Zoster Vaccines (1 of 2) [facility] Start: 1964 DTaP/Tdap/Td Vaccine s (1 - Tdap) DTaP/Tdap/Td Vaccines (1 - Tdap) [facility] Start: 1961 Pneumococcal Vaccine : 65+ Years (1 of 2 - PCV) Pneumococcal Vaccine: 65+ Years (1 of 2 - PCV) [facility] Start: 1948 Pneumococcal Vaccine : 65+ Years (1 - PCV) Pneumococcal Vaccine: 65+ Years (1 - PCV) [facility] Start: 1948 Pneumococcal Vaccine : 65+ Years (1 of 2 - PCV) Pneumococcal Vaccine: 65+ Years (1 of 2 - PCV) [facility] Start: 03-28-1943 COVID-19 Vaccine (#1) COVID-19 Vacci ne (#1) [facility] Start: 1942 Medicare Annual Wellness (AWV) Medicare Annual Wellness (AWV) [facility] Start: 1942 Medicare Annual Wellness Visit Medicare Annual Wellness Visit (AWV) [facility] Lead [Presence] in Blood [facility] Patient Education Head injury in adults Preventing falls - ED discharge instructions [facility] Work Phone: Patient referral [facility] Work Phone: End: 07-22-2023 [facility] Service Area Work Phone: Comment on above: Once for 1 Occurrenc es starting 07/22/2023 until 07/22/2023 Immunizations Immunization Date Immunization Notes Care Provider Salvador nice 11-02-2024 tetanus toxoid, redu savannah diphtheria toxoid, and acellular pertussis vaccine, adsorbed Josue Leigh DO Work Phone: [facility] Payers Date Payer Category Payer Medicare [id number] 2023 Self-pay [id number] 2015 Medicare [id number] 2015 Medicare (Managed Care) [employer] [id number] 5 2015 Medicare [id number] 1959 Unknown [id number] 1942 Unknown [id number] 2.16.840.1.495435.3.579 .2.356 1942 Unknown [id number] 2.16.840.1.592757.3.579 .2.593 1942 Unknown [id number] 2.16.840.1.222585.3.579 .2.1246 1942 Unknown [id number] 2.16.840.1.687342.3.579 .2.718 1942 Unknown [id number] 2.16.840.1.433059.3.579 .2.718 1942 Unknown [id number] 2.16.840.1.331514.3.579 .2.718 1942 Unknown [id number] 2.16.840.1.099695.3.579 .2.1244 1942 Unknown [id number] 2.16.840.1.317123.3.579 .2.1259 1942 Unknown [id number] 2.16.840.1.742540.3.579 .2.1259 1942 Unknown [id number] 2.16.840.1.769016.3.579 .2.1258 1942 Unknown [id number] 2.16.840.1.224298.3.579 .2.1258 1942 Unknown [id number] 2.16.840.1.606270.3.579 .2.1258 1942 Unknown [id number] 2.16.840.1.728722.3.579 .2.1258 1942 Unknown [id number] 2.16.840.1.759289.3.579 .2.1258 1942 Unknown [id number] 2.16.840.1.407135.3.579 .2.1258 1942 Unknown [id number] 2.16.840.1.481622.3.579 .2.1258 1942 Unknown [id number] 2.16.840.1.081876.3.579 .2.1258 1942 Unknown [id number] 2.16.840.1.119865.3.579 .2.1258 1942 Unknown [id number] 2.16.840.1.942807.3.579 .2.1258 1942 Unknown [id number] 2.16840.1.151651.3.579 .2.1258 1942 Unknown [id number] 2.16.840.1.371945.3.579 .2.1258 1942 Unknown [id number] 2.16840.1.659777.3.579 .2.1258 1942 Unknown [id number] 2.16840.1.835848.3.579 .2.1259 Unknown ANTHEM Unknown [place] [facility]/ [id number] Unknown [facility] [id number] Unknown [id number] 2.16.840.1.087275.3.579 .2.531 Unknown [id number] 2.16.840.1.738103.3.579 .2.531 Unknown [id number] 2.16.840.1.147727.3.579 .2.531 Social History Date Type Detail Facility Start: 06-19-2023 End: 10-10-2024 No illicit drug use No illicit drug use [facility] DO Work Phone: Comment on above: Quit 1984; Start: 06-19-2023 End: 10-10-2024 Sex Assigned At [facility] Other Start: 06-19-2023 End: 11-02-2024 Tobacco smoking status NHIS Ex-smoker [facility] History of tobacco use Current smoker [facility] Work Phone: History of tobacco use Cigarette Smoker U [facility] Work Phone: Start: 06-19-2023 End: 01-18-2024 Tobacco use and exposure Smokeless tobacco non-user [facility] Work Phone: Start: 06-19-2023 Alcohol intake Lifetime non-d ana (finding) [facility] Work Phone: Start: 1940 Sex Assigned At Not on file U [facility] Work Phone: Start: 06-09-2023 End: 07-22-2023 Exposure to SARS-CoV-2 (event) Not sure [facility] Start: 07-13-2018 End: 07-13-2018 Tobacco smoking status NHIS Never smoked tobacco (finding) [facility] Start: 1940 Sex Assigned At Male F [facility] Start: 06-21-2024 End: 10-10-2024 Alcoholic beverage intake Defer [facility] Start: 11-02-2024 End: 11-11-2024 Sex Male (finding) [facility] Goals Date Patient Goal Desired Activity /State Functional Status Date Assessment Result Facility 10-10-2024 Patient Health Quest ionnaire 2 item (PHQ-2) [Reported] [facility] 12-23-2023 Functional status Patient at Baseline [facility] Work Phone: 12-17-2023 Functional status Patient at Baseline [facility] Work Phone: Mental Status Date Assessment Result Facility 12-23-2023 Cognitive function Cognitive Sta tus Patient is Progressing Toward Baseline [facility] Work Phone: 12-17-2023 Cognitive function Cognitive Sta tus Patient Not at Baseline [facility] Work Phone: Clinical Notes 06-08-2018 to 11-10-2024 Telephone Encounter - Isabelle Rucker NP - 11/10/2024 11:03 AM EDTTelephone Encounter - Isabelle Rucker NP - 11/10/2024 11:03 AM EDTTyson Bhatti MD - 10/10/2024 3:30 PM EDT Note Date & Type Note Facility 11-10-2024 Telephone encounter Note This pt had a fall at [facility] on 11/02/24, he was seen at the ER and did have xrays and a CT of his head. He has continued left knee pain and swelling. Started on a steroid burst 11/08/24 and was instructed to continues ICE to the area as needed[place] [facility] [place] ev[place] and treat. D/T continued pain we will get a repeat xray of the Left knee. [facility] 11-10-2024 Miscellaneous Notes This pt had a fall at [facility] on 11/02/24, he was seen at the ER and did have xrays and a CT of his head. He has continued left knee pain and swelling. Started on a steroid burst 11/08/24 and was instructed to continues ICE to the area as needed. [facility] [place] to evalk and treat. D/T continued pain we will get a repeat xray of the Left knee. documented in this encounter [facility] 11-02-2024 Radiology Diagnostic study note [facility] [address] [address] [address] Scan Report Signed Patient: Emigdio Jeong III MR#: [id number] : 1940 Acct:[id number] Age/Sex: 84 / M ADM Date: 5 Loc: ER Room: Type: [facility] ER Attending Dr: Copies to: Josue Leigh DO~ Ordering Provider: Josue Leigh DO Date of Service: 11/02/24 CT/CT cervical spine wo con: fall CT CERVICAL SPINE WITHOUT CONTRAST WITH 3D RECONSTRUCTIONS: CLINICAL HISTORY: Fall, laceration to forehead, positive LOC COMPARISON: None TECHNIQUE: Spiral axial unenhanced images were obtained through the cervical spine. Sagittal, coronal and 3D volume-rendered reconstructions were also reviewed. This CT exam was performed using one or more following dose reductiontechniques: Automated exposure control, adjustment of the mA and/or kV accordingto patient size, or use of iterative reconstruction technique. FINDINGS: Mild to moderate multilevel degenerative changes with multilevel intervertebral space narrowing associated endplate osteophytosis. Multilevel uncovertebral and facet arthropathy. No fracture or malalignment. No prevertebral soft tissue swelling. Vascular calcifications. No prevertebral soft tissue swelling. Multilevel foraminal encroachment noted. Mild interstitial edema involving the lung apices. CT/CT cervical spine wo con IMPRESSION: NO CERVICAL SPINE FRACTURE Impression dictated by: Pako Hassan M.D. 11/02/2024 6:47 PM Dictation Location: [place] [address] Transcribed By: [facility] 11/02/241846 Dictated By: Pako Hassan MD 11/02/241844 Signed By: 11/02/241846 [facility] Work Phone: 11-02-2024 Radiology Diagnostic study note [facility] [place] [address] CT Scan Report Signed Patient: Emigdio Jeong III MR#: [id number] : 1940 Acct:[id number] Age/Sex: 84 / M ADM Date: 5 Loc: ER Room: Type: [facility] ER Attending Dr: Copies to: Josue Leigh DO~ Ordering Provider: Josue Leigh DO Date of Service: 11/02/24 CT/CT head/brain wo con: fall CT BRAIN WITHOUT CONTRAST: CLINICAL HISTORY: Fall, positive LOC, laceration to forehead COMPARISON: 12/17/2023 TECHNIQUE: Contiguous axial unenhanced images were obtained through the brain. This CT exam was performed using one or more following dose reduction techniques: Automated exposure control, adjustment of the mA and/or kV accordingto patient size, or use of iterative reconstruction technique. FINDINGS: There is no evidence of midline shift, intra or extra-axial fluid collection, hemorrhage or CT evidence of large vascular distribution stroke. Central involutional changes. Chronic small vessel ischemic disease. Vascular calcifications. Cataract surgery. Visualized paranasal sinuses are clear. No calvarial fracture. Left frontal soft tissue swelling. CT/CT head/brain wo con IMPRESSION: NO ACUTE INTRACRANIAL ABNORMALITY. 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 Impression dictated by: Pako Hassan M.D. 11/02/2024 6:41 PM Dictation Location: [place] [address] Transcribed By: [facility] 11/02/241840 Dictated By: Pako Hassan MD 11/02/24 183 Signed By: 11/02/24 184 [facility] Work Phone: 10-10-2024 History of Present illness Narrative Images from the original note were not included. HPI Atrial Fibrillation Additional comments: Coumadin 6mg T/TH/SAT 4mg all other days Last edited by Darline Huerta MA on 10/10/2024 7:24 AM. Subjective Patient ID: Emigdio Jeong is a 84 y.o. male who presents for Atrial Fibrillation (Coumadin 6mg T/TH/SAT 4mg all other days). Taking coumadin as directed Denies any abnormal bleeding Here for INR, today INR is 3.3 Atrial Fibrillation Past medical history includes atrial fibrillation. Current Outpatient Medications on File Prior to Visit Medication Sig Dispense Refill aspirin 81 MG EC tablet Take 1 tablet (81 mg) by mouth Daily 30 tablet 11 atorvastatin (Lipitor) 20 MG tablet Take 20 mg by mouth in the morning. cyanocobalamin (Vitamin B-12) 1000 MCG tablet Take 1,000 mcg by mouth Daily losartan-hydroCHLOROthiazide (Hyzaar) 50-12.5 MG tablet Take 1 tablet by mouth Daily 90 tablet 3 Omeprazole 20 MG tablet delayed-release Take 20 mg by mouth Daily traZODone (Desyrel) 50 MG tablet Take 1 tablet (50 mg) by mouth at bedtime 30 tablet 11 warfarin (Coumadin) 4 MG tablet Take 1 tablet (4 mg) by mouth 1 (one) time each day Take as directed per After Visit Summary.- dose changing weekly per lab results 90 tablet 11 No current facility-administered medications on file prior to visit. I have reviewed and reconciled the history and medication list with the patient today. No Known Allergies Social History Tobacco Use Smoking status: Former Types: Cigarettes Smokeless tobacco: Never Vaping Use Vaping status: Unknown Substance Use Topics Alcohol use: Defer Drug use: Defer No family history on file. Past Medical History: Diagnosis Date A-fib (CMS/HCC) Glaucoma Hypercholesteremia (CMS/HCC) Hypertension (CMS/HCC) Past Surgical History: Procedure Laterality Date CATARACT EXTRACTION Bilateral NCEA GLAUCOMA SURGERY Bilateral 2021 SLT - OU Visit Vitals BP 112/82 Pulse 70 Ht 6' Wt 229 lb SpO2 97% BMI 31.06 kg/m Smoking Status Former BSA 2.3 m Review of Systems Objective Physical Exam Constitutional: General: He is not in acute distress. Appearance: He is normal weight. He is not ill-appearing. HENT: Head: Normocephalic. Cardiovascular: Rate and Rhythm: Normal rate. Rhythm irregular. Heart sounds: Murmur heard. Systolic murmur is present with a grade of 2/6. Pulmonary: Effort: Pulmonary effort is normal. Breath sounds: Normal breath sounds. Musculoskeletal: General: No swelling. Right lower le+ Edema present. Left lower le+ Edema present. Neurological: Mental Status: He is alert. Psychiatric: Mood and Affect: Mood normal. Thought Content: Thought content normal. Judgment: Judgment normal. Office Visit on 10/10/2024 Component Date Value Ref Range Status RESULTS 10/10/2024 3.3 Final Assessment/Plan Diagnoses and all orders for this visit: Longstanding persistent atrial fibrillation (CMS/HCC) - POCT Protime-INR, fingerstick docked device - The patient has been compliant with Coumadin therapy and INR is currently within therapeutic range. Return to clinic in weeks for INR recheck. Follow up in about 6 weeks (around 11/21/2024) for PT/INR. documented in this encounter [facility] 10-03-2024 History of Present illness Narrative Images from the original note were not included. Chief complaint: Memory loss Subjective Emigdio Jeong, 84 y.o., male Patient presents today for a follow up for Alzheimer's disease. Patient presents today with his daughter. Patient currently resides at [facility]. Patients daughter states since he has moved from the [place] to [facility] she has noticed a difference. She states he has had no hallucinations since being there. She believes this is because he is receiving his medication correctly here. She notes that the pt short term is worsening. Memories from years ago are far and few between. Tends to forget his 's name. Forgets how to operate simple equipment like telephones and his seatbelt. She is getting healthy meals and she believes the social environment has been helpful. Patient states he feels good. They deny any new concerns at this time. Review of Systems Constitutional: Negative for appetite change, fatigue and fever. Respiratory: Negative for cough, shortness of breath and wheezing. Cardiovascular: Negative for chest pain, palpitations and leg swelling. Gastrointestinal: Negative for abdominal pain, constipation, diarrhea and nausea. Musculoskeletal: Negative for arthralgias, gait problem and myalgias. Neurological: Negative for dizziness, tremors, numbness and headaches. Patient endorses memory impairment Past Medical History: Diagnosis Date A-fib (CMS/HCC) Glaucoma Hypercholesteremia (CMS/HCC) Hypertension (CMS/HCC) Past Surgical History: Procedure Laterality Date CATARACT EXTRACTION Bilateral NCEA GLAUCOMA SURGERY Bilateral 2021 SLT - OU No family history on file. Social History Tobacco Use Smoking status: Former Types: Cigarettes Smokeless tobacco: Never Substance Use Topics Alcohol use: Defer Allergies: Patient has no known allergies. Vitals: 10/03/24 0933 BP: 128/86 Body mass index is 31.19 kg/m . Weight: 230 lb Neurologic exam: Mental status: Awake, alert to person, place and time. Language is fluent without aphasia. Attention and concentration are normal. Impaired 3 object recall Cranial nerves: CN II: Visual acuity is normal. Visual rolon full to confrontation. CN III, IV, : pupils equal round and reactive to light. Extraocular movements intact. No ptosis present. CN V: Facial sensation is normal. CN VII: Full and symmetric facial movement. CN VIII: Hearing is normal to finger rub bilaterally: CN IX and X: Palate elevates symmetrically. CN XI: Shoulder shrug is normal bilaterally. CN XII: Tongue is midline without atrophy or fasciculation. Motor: Strength is 5/5 throughout. Bulk is normal. Sensory: Sensation is intact to light touch throughout Four extremities. Reflexes: Deep tendon reflexes are 2+ and symmetric throughout. Coordination: [id number] testing and rapid alternating movements are normal Gait: Normal Review and summary of old records: CT of the brain without contrast on 12/17/2023: Atrophy and chronic microvascular changes. No acute intracranial abnormality. MRI of the brain without contrast on 12/17/2023: No acute intracranial pathology. Remote lacunar infarcts. Chronic age-related degenerative changes. Diminished flow void in V4 on the left vertebral artery which may be chronic. Carotid ultrasound on 12/21/2023: No hemodynamically significant stenosis. Antegrade vertebral flow. Vitamin B12 was only mildly diminished at 174. Thyroid stimulating hormone within normal limits. RPR is negative. Whole blood lead level is normal 2D echocardiogram showed EF 55-60 percent ejection fraction with no evidence of mass, vegetation or thrombus. I did review hospital admission where the patient was found to have some episodes of lightheadedness and blurriness and was admitted to the hospital for further evaluation. Concerned that this may have been a neurodegenerative disease such as Lewy body dementia. 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 I feel this is most likely Alzheimer's type. Extensive evaluation is detailed as above. The patient's [place] cognitive assessment was 09/04 but I do think some of this was effort dependent. His mood and nighttime seems to be better since last visit. The patient's daughter does feel that since transitioned to [facility] his memory, medication dosages and overall mood have been stable to improved. Patient is again overall stable in September 2024. Plan: I have advised the patient not to drive. His daughters were with him today and will help imposed these restrictions. - ok to continue to use trazadone. We previously tried to use quetiapine but facility seems to have changed this to trazodone and the patient seems to be doing well so we will not alter it further at this time History of ischemic stroke Patient does have evidence of lacunar infarct identified previously on MRI imaging. Patient really did not have any focal deficits related to these findings and does not really believe he had a stroke in the past. Plan: Continue aspirin 81 mg p.o. daily The patient was educated on signs and symptoms of stroke and told the emergency department right away with any signs or symptoms. Pt has been fully educated on their diagnosis, lab results, treatment options, follow up plan, and return instructions documented in this encounter [facility] 08-29-2024 History of Present illness Narrative Images from the original note were not included. HPI INR VISIT Additional comments: Coumadin 4mg M/W/F 6mg all other days Last edited by Fannie Ackerman LPN on 08/29/2024 3:02 PM. Subjective Patient ID: Emigdio Jeong is a 83 y.o. male who presents for INR VISIT (Coumadin 4mg M/W/F 6mg all other days). Taking coumadin as directed Denies any abnormal bleeding Her for INR Current Outpatient Medications on File Prior to Visit Medication Sig Dispense Refill aspirin 81 MG EC tablet Take 1 tablet (81 mg) by mouth Daily 30 tablet 11 cyanocobalamin (Vitamin B-12) 1000 MCG tablet Take 1,000 mcg by mouth Daily losartan-hydroCHLOROthiazide (Hyzaar) 50-12.5 MG tablet Take 1 tablet by mouth Daily 90 tablet 3 Omeprazole 20 MG tablet delayed-release Take 20 mg by mouth Daily traZODone (Desyrel) 50 MG tablet Take 1 tablet (50 mg) by mouth at bedtime 30 tablet 11 warfarin (Coumadin) 4 MG tablet Take 1 tablet (4 mg) by mouth 1 (one) time each day Take as directed per After Visit Summary.- dose changing weekly per lab results 90 tablet 11 atorvastatin (Lipitor) 20 MG tablet Take 20 mg by mouth in the morning. No current facility-administered medications on file prior to visit. I have reviewed and reconciled the history and medication list with the patient today. No Known Allergies Social History Tobacco Use Smoking status: Former Types: Cigarettes Smokeless tobacco: Never Vaping Use Vaping status: Unknown Substance Use Topics Alcohol use: Defer Drug use: Defer No family history on file. Past Medical History: Diagnosis Date A-fib (CMS/HCC) Glaucoma (CMS/HCC) Hypercholesteremia (CMS/HCC) Hypertension (CMS/HCC) Past Surgical History: Procedure Laterality Date CATARACT EXTRACTION Bilateral NCEA GLAUCOMA SURGERY Bilateral 2021 SLT - OU Visit Vitals BP 128/78 Pulse 68 Ht 6' Wt 228 lb SpO2 95% BMI 30.92 kg/m Smoking Status Former BSA 2.29 m Review of Systems Objective Physical Exam Constitutional: General: He is not in acute distress. Appearance: He is normal weight. He is not ill-appearing. HENT: Head: Normocephalic. Cardiovascular: Rate and Rhythm: Normal rate. Rhythm irregular. Heart sounds: Murmur heard. Systolic murmur is present with a grade of 2/6. Pulmonary: Effort: Pulmonary effort is normal. Breath sounds: Normal breath sounds. Musculoskeletal: General: No swelling. Right lower le+ Edema present. Left lower le+ Edema present. Neurological: Mental Status: He is alert. Psychiatric: Mood and Affect: Mood normal. Thought Content: Thought content normal. Judgment: Judgment normal. Office Visit on 08/29/2024 Component Date Value Ref Range Status RESULTS 08/29/2024 3.7 Final Assessment/Plan Diagnoses and all orders for this visit: Alzheimer's disease with late onset (CODE) (CMS/HCC) - This is a chronic medical condition that is stable since last assessment. No changes in treatment are suggested at this time. Longstanding persistent atrial fibrillation (CMS/HCC) - POCT Protime-INR, fingerstick docked device - Reduce dose to 6mg T//Sa; 4mg all other Follow up in about 6 weeks (around 10/10/2024) for PT/INR. documented in this encounter [facility] 08-01-2024 History of Present illness Narrative Images from the original note were not included. HPI INR VISIT Additional comments: Coumadin 4mg tues/Fri 6mg all other days Last edited by Fannie Ackerman LPN on 08/01/2024 2:43 PM. Subjective : Chief Complaint: Emigdio Jeong is an 83 y.o. male here for an annual wellness visit. I have reviewed and reconciled the history and medication list with the patient today. Current Outpatient Medications Medication Sig Dispense Refill aspirin 81 MG EC tablet Take 1 tablet (81 mg) by mouth Daily 30 tablet 11 cyanocobalamin (Vitamin B-12) 1000 MCG tablet Take 1,000 mcg by mouth Daily losartan-hydroCHLOROthiazide (Hyzaar) 50-12.5 MG tablet Take 1 tablet by mouth Daily 90 tablet 3 Omeprazole 20 MG tablet delayed-release Take 20 mg by mouth Daily traZODone (Desyrel) 50 MG tablet Take 1 tablet (50 mg) by mouth at bedtime 30 tablet 11 warfarin (Coumadin) 4 MG tablet Take 1 tablet (4 mg) by mouth 1 (one) time each day Take as directed per After Visit Summary.- dose changing weekly per lab results 90 tablet 11 atorvastatin (Lipitor) 20 MG tablet Take 20 mg by mouth in the morning. No current facility-administered medications for this visit. Review of Systems List of current healthcare providers: Patient Care Team: Tyson Bhatti MD as PCP - General (Internal Medicine) Medicare Annual Visit Over the past 2 weeks, how often have you been bothered by any of the following problems? Little interest or pleasure in doing things: Not at all Feeling down, depressed, or hopeless: Not at all Patient Health Questionnaire-2 Score: 0 Ag Fall Risk History of Falling, Immediate or Within 3 Months: Yes Secondary Diagnosis: No Ambulatory Aid: Crutches/cane/walker Health Risk Assessment Form Do you need help eating, bathing, using the toilet, dressing, or getting around your home?: No Can you prepare your own meals?: No Can you do your own housework without help?: No Can you shop for groceries or clothes without help?: No Do you exercise for about 20 minutes 3 or more days a week?: No How confident are you that you can control and manage most of your health problems?: Somewhat confident Can you mange your money, credit cards and accounts, pay bills and taxes?: No Pain Assessment Pain Score: 0 - No pain Advance Care Planning Do you have a living will?: No Do you have a medical power of assistant county attorney?: Yes Who is your medical power of assistant county attorney?: daughter Objective : BP 128/76 Pulse 74 Ht 6' SpO2 94% BMI 31.22 kg/m No results found. Physical Exam Constitutional: General: He is not in acute distress. Appearance: He is normal weight. He is not ill-appearing. HENT: Head: Normocephalic. Cardiovascular: Rate and Rhythm: Normal rate and regular rhythm. Heart sounds: Murmur heard. Systolic murmur is present with a grade of 2/6. Pulmonary: Effort: Pulmonary effort is normal. Breath sounds: Normal breath sounds. Musculoskeletal: General: No swelling. Right lower le+ Edema present. Left lower le+ Edema present. Neurological: Mental Status: He is alert. Psychiatric: Mood and Affect: Mood normal. Thought Content: Thought content normal. Judgment: Judgment normal. Office Visit on 08/01/2024 Component Date Value Ref Range Status RESULTS 08/01/2024 4.7 Final Office Visit on 07/04/2024 Component Date Value Ref Range Status RESULTS 07/04/2024 2.3 Final Assessment/Plan : The following health maintenance schedule was reviewed with the patient and provided in printed form in the after visit summary: Health Maintenance Topic Date Due Pneumococcal Vaccine: 65+ Years (1 of 2 - PCV) Never done Influenza Vaccine (1) Never done Advance Care Planning Patient agreed to discuss advance care planning at today's wellness visit. We discussed that an advance directive is a legal document that only goes into effect if the patient is incapacitated and unable to speak for himself or herself. This would help healthcare providers to ensure that the patient gets the care that he or she wishes to receive. The goal is to provide a patient with the best possible quality of life. Encouraged patient to obtain a living will and durable power of assistant county attorney for healthcare. We discussed telling [place] people about their advance directives such as close family members, and requested a copy to scan into the patient's EHR. An advance directive packet was offered to the patient. Assessment/Plan Diagnoses and all orders for this visit: Routine general medical examination at health care facility ACP (advance care planning) Longstanding persistent atrial fibrillation (CMS/HCC) - POCT Protime-INR, fingerstick docked device - Skip next doses of Coumadin, then decrease standing dose to 4mg M/W/F; 6mg all other Orders Placed This Encounter Procedures POCT Protime-INR, fingerstick docked device Follow up in about 4 weeks (around 08/29/2024) for PT/INR. Electronically signed by Tyson Bhatti MD on August 01, 2024 documented in this encounter [facility] 07-04-2024 History of Present illness Narrative Images from the original note were not included. Subjective Patient ID: Emigdio Jeong is a 83 y.o. male who presents for Afib. Emigdio is present today for follow up Afib. He was here on 07/01/24 and his INR was 7.7, he was advised to hold his coumadin until he comes in for recheck today. Today INR is 2.3. Current Outpatient Medications on File Prior to Visit Medication Sig Dispense Refill aspirin 81 MG EC tablet Take 1 tablet (81 mg) by mouth Daily 30 tablet 11 atorvastatin (Lipitor) 20 MG tablet Take 20 mg by mouth in the morning. cyanocobalamin (Vitamin B-12) 1000 MCG tablet Take 1,000 mcg by mouth Daily losartan-hydroCHLOROthiazide (Hyzaar) 50-12.5 MG tablet Take 1 tablet by mouth Daily 90 tablet 3 Omeprazole 20 MG tablet delayed-release Take 20 mg by mouth Daily traZODone (Desyrel) 50 MG tablet Take 1 tablet (50 mg) by mouth at bedtime 30 tablet 11 warfarin (Coumadin) 4 MG tablet Take 1 tablet (4 mg) by mouth 1 (one) time each day Take as directed per After Visit Summary.- dose changing weekly per lab results 90 tablet 11 [DISCONTINUED] azithromycin (Zithromax) 250 MG tablet Take 2 tablets (500 mg) by mouth Daily for 1 day, THEN 1 tablet (250 mg) Daily for 4 days. 6 tablet 0 [DISCONTINUED] carbamide peroxide (Debrox) 6.5 % otic solution Administer 5-10 drops into affected ear(s) in the morning and 5-10 drops before bedtime. Do all this for 4 days. 15 mL 0 No current facility-administered medications on file prior to visit. I have reviewed and reconciled the history and medication list with the patient today. No Known Allergies Social History Tobacco Use Smoking status: Former Types: Cigarettes Smokeless tobacco: Never Vaping Use Vaping status: Unknown Substance Use Topics Alcohol use: Defer Drug use: Defer No family history on file. Past Medical History: Diagnosis Date A-fib (CMS/HCC) Glaucoma (CMS/HCC) Hypercholesteremia (CMS/HCC) Hypertension (CMS/HCC) Past Surgical History: Procedure Laterality Date CATARACT EXTRACTION Bilateral NCEA GLAUCOMA SURGERY Bilateral 2021 SLT - OU Visit Vitals BP 106/72 Pulse 82 Resp 16 Ht 6' Wt 230 lb 3.2 oz SpO2 97% BMI 31.22 kg/m Smoking Status Former BSA 2.3 m Review of Systems Constitutional: Negative for chills, fatigue and fever. HENT: Negative for nosebleeds. Respiratory: Negative for cough, shortness of breath and wheezing. Cardiovascular: Negative for chest pain, palpitations and leg swelling. Gastrointestinal: Negative for abdominal pain, blood in stool, constipation, diarrhea, nausea and vomiting. Skin: Negative for rash. Objective Physical Exam Constitutional: General: He is not in acute distress. Appearance: He is obese. HENT: Head: Normocephalic and atraumatic. Eyes: General: No scleral icterus. Cardiovascular: Rate and Rhythm: Normal rate and regular rhythm. Heart sounds: Murmur heard. Systolic murmur is present with a grade of 2/6. Pulmonary: Effort: Pulmonary effort is normal. No respiratory distress. Breath sounds: Normal breath sounds. No wheezing, rhonchi or rales. Musculoskeletal: Right lower leg: Edema present. Left lower leg: Edema present. Skin: General: Skin is warm and dry. Neurological: General: No focal deficit present. Mental Status: He is alert and oriented to person, place, and time. Psychiatric: Mood and Affect: Mood normal. Behavior: Behavior normal. Assessment/Plan Diagnoses and all orders for this visit: Longstanding persistent atrial fibrillation (CMS/HCC) - POCT Protime-INR, fingerstick docked device The patient has been compliant with Coumadin therapy. He held his Coumadin as instructed until today's appointment as INR on 07/01/24 was 7.7. INR is currently within therapeutic range at 2.3. Per Dr. Bhatti's instruction, will have patient resume previous Coumadin dosing. Note provided for Home Health with order regarding Coumadin. Anticoagulant long-term use Return to clinic in 4 weeks for INR recheck. Follow up in about 4 weeks (around 08/01/2024) for INR. documented in this encounter [facility] 07-01-2024 History of Present illness Narrative Images from the original note were not included. HPI INR VISIT Additional comments: Coumadin 4mg Tues/Fri 6mg all other days Last edited by Fannie Ackerman LPN on 07/01/2024 9:38 AM. Subjective Patient ID: Emigdio Jeong is a 83 y.o. male who presents for INR VISIT (Coumadin 4mg Tues/Fri 6mg all other days) and orthostatic hypotension. Taking coumadin as directed Denies any abnormal bleeding Her for INR Pt taking half losartan/hydrochlorothiazide denies any lightheadedness dizziness or syncope Current Outpatient Medications on File Prior to Visit Medication Sig Dispense Refill aspirin 81 MG EC tablet Take 1 tablet (81 mg) by mouth Daily 30 tablet 11 cyanocobalamin (Vitamin B-12) 1000 MCG tablet Take 1,000 mcg by mouth Daily losartan-hydroCHLOROthiazide (Hyzaar) 50-12.5 MG tablet Take 1 tablet by mouth Daily 90 tablet 3 Omeprazole 20 MG tablet delayed-release Take 20 mg by mouth Daily traZODone (Desyrel) 50 MG tablet Take 1 tablet (50 mg) by mouth at bedtime 30 tablet 11 warfarin (Coumadin) 4 MG tablet Take 1 tablet (4 mg) by mouth 1 (one) time each day Take as directed per After Visit Summary.- dose changing weekly per lab results 90 tablet 11 atorvastatin (Lipitor) 20 MG tablet Take 20 mg by mouth in the morning. [DISCONTINUED] azithromycin (Zithromax) 250 MG tablet Take 2 tablets (500 mg) by mouth Daily for 1 day, THEN 1 tablet (250 mg) Daily for 4 days. 6 tablet 0 [DISCONTINUED] carbamide peroxide (Debrox) 6.5 % otic solution Administer 5-10 drops into affected ear(s) in the morning and 5-10 drops before bedtime. Do all this for 4 days. 15 mL 0 No current facility-administered medications on file prior to visit. I have reviewed and reconciled the history and medication list with the patient today. No Known Allergies Social History Tobacco Use Smoking status: Former Types: Cigarettes Smokeless tobacco: Never Vaping Use Vaping status: Unknown Substance Use Topics Alcohol use: Defer Drug use: Defer No family history on file. Past Medical History: Diagnosis Date A-fib (CMS/HCC) Glaucoma (CMS/HCC) Hypercholesteremia (CMS/HCC) Hypertension (CMS/HCC) Past Surgical History: Procedure Laterality Date CATARACT EXTRACTION Bilateral NCEA GLAUCOMA SURGERY Bilateral 2021 SLT - OU Visit Vitals BP 114/66 Comment: standing 112 64 Pulse 63 Ht 6' Wt 229 lb SpO2 95% BMI 31.06 kg/m Smoking Status Former BSA 2.3 m Review of Systems Objective Physical Exam Constitutional: General: He is not in acute distress. Appearance: He is normal weight. He is not ill-appearing. HENT: Head: Normocephalic. Cardiovascular: Rate and Rhythm: Normal rate and regular rhythm. Heart sounds: Murmur heard. Systolic murmur is present with a grade of 2/6. Pulmonary: Effort: Pulmonary effort is normal. Breath sounds: Normal breath sounds. Musculoskeletal: General: No swelling. Right lower le+ Edema present. Left lower le+ Edema present. Neurological: Mental Status: He is alert. Psychiatric: Mood and Affect: Mood normal. Thought Content: Thought content normal. Judgment: Judgment normal. Office Visit on 07/01/2024 Component Date Value Ref Range Status RESULTS 07/01/2024 7.7 Final Clinisync Result Encounter on 06/28/2024 Component Date Value Ref Range Status COLOR URINE 06/28/2024 YELLOW YELLOW Final CLARITY URINE 06/28/2024 CLOUDY (A) CLEAR Final SPECIFIC GRAVITY URINE 06/28/2024 1.025 1.005 - 1.025 Final PH URINE 06/28/2024 6.0 5.0 - 9.0 Final PROTEIN URINE 06/28/2024 NEGATIVE NEG/TRACE mg/dL Final GLUCOSE URINE UA 06/28/2024 NEGATIVE NEGATIVE mg/dL Final BILIRUBIN URINE 06/28/2024 NEGATIVE NEGATIVE Final KETONES URINE 06/28/2024 NEGATIVE NEGATIVE mg/dL Final BLOOD URINE 06/28/2024 NEGATIVE NEGATIVE Final NITRITE URINE 06/28/2024 NEGATIVE NEGATIVE Final UROBILINOGEN URINE 06/28/2024 0.2 0.2 - 1.0 EU/dL Final LEUKOCYTE ESTERASE URINE 06/28/2024 NEGATIVE NEGATIVE Final TBH WBC 06/28/2024 NONE SEEN NONE SEEN #/HPF Final TBH RBC 06/28/2024 0-2 0 - 2 #/HPF Final BACTERIA URINE 06/28/2024 NONE SEEN NONE SEEN #/HPF Final MUCUS URINE 06/28/2024 NONE SEEN NONE SEEN Final SQUAMOUS EPITHELIAL CELL URINE 06/28/2024 RARE NONE/RARE #/LPF Final CRYSTALS SEEN? 06/28/2024 Seen (A) None Seen #/HPF Final TBH CALCIUM OXALATE CRYSTALS URINE 06/28/2024 RARE Final AMORPHOUS SEDIMENT URINE 06/28/2024 MANY Final CAST SEEN? 06/28/2024 NONE SEEN NONE SEEN #/LPF Final URINE CULTURE INDICATED 06/28/2024 NO Final Office Visit on 06/21/2024 Component Date Value Ref Range Status WHITE BLOOD CELL COUNT 06/21/2024 4.4 3.8 - 10.8 Thousand/uL Final RED BLOOD CELL COUNT 06/21/2024 5.67 4.20 - 5.80 Million/uL Final HEMOGLOBIN 06/21/2024 13.9 13.2 - 17.1 g/dL Final HEMATOCRIT 06/21/2024 45.8 38.5 - 50.0 % Final MCV 06/21/2024 80.8 80.0 - 100.0 fL Final MCH 06/21/2024 24.5 (L) 27.0 - 33.0 pg Final MCHC 06/21/2024 30.3 (L) 32.0 - 36.0 g/dL Final Comment: For adults, a slight decrease in the calculated MCHC value (in the range of 30 to 32 g/dL) is most likely not clinically significant; however, it should be interpreted with caution in correlation with other red cell parameters and the patient's clinical condition. RDW 06/21/2024 17.1 (H) 11.0 - 15.0 % Final PLATELET COUNT 06/21/2024 141 140 - 400 Thousand/uL Final MPV 06/21/2024 11.4 7.5 - 12.5 fL Final Glucose 06/21/2024 77 65 - 99 mg/dL Final Comment: Fasting reference interval BUN 06/21/2024 21 7 - 25 mg/dL Final Creatinine 06/21/2024 1.22 0.70 - 1.22 mg/dL Final EGFR 06/21/2024 60 > OR = 60 mL/min/1.73m2 Final BUN/CREATININE RATIO 06/21/2024 SEE NOTE: 6 - 22 (calc) Final Comment: Not Reported: BUN and Creatinine are within reference range. Sodium 06/21/2024 138 135 - 146 mmol/L Final Potassium, Bld 06/21/2024 4.0 3.5 - 5.3 mmol/L Final Chloride 06/21/2024 100 98 - 110 mmol/L Final Carbon Dioxide 06/21/2024 30 20 - 32 mmol/L Final Calcium 06/21/2024 8.7 8.6 - 10.3 mg/dL Final PROTEIN, TOTAL 06/21/2024 6.4 6.1 - 8.1 g/dL Final ALBUMIN 06/21/2024 4.0 3.6 - 5.1 g/dL Final GLOBULIN 06/21/2024 2.4 1.9 - 3.7 g/dL (calc) Final ALBUMIN/GLOBULIN RATIO 06/21/2024 1.7 1.0 - 2.5 (calc) Final BILIRUBIN, TOTAL 06/21/2024 0.9 0.2 - 1.2 mg/dL Final ALKALINE PHOSPHATASE 06/21/2024 58 35 - 144 U/L Final AST 06/21/2024 24 10 - 35 U/L Final ALT 06/21/2024 17 9 - 46 U/L Final Office Visit on 05/27/2024 Component Date Value Ref Range Status RESULTS 05/27/2024 4.7 Final Assessment/Plan Diagnoses and all orders for this visit: Acute non-recurrent pansinusitis - Resolved. Longstanding persistent atrial fibrillation (CMS/HCC) - POCT Protime-INR, fingerstick docked device - Stop Coumadin until further notice, INR >7 - Probably elevated due to recent ATB - RTC 3 days to recheck INR Dementia in other diseases classified elsewhere, severe, with agitation (CMS/HCC) Alzheimer's disease with late onset (CODE) (CMS/HCC) Orthostatic hypotension - Improved with med reduction on prior visit. Follow up in 3 days (on 07/04/2024) for PT/INR. documented in this encounter [facility] 06-21-2024 History of Present illness Narrative Images from the original note were not included. Subjective Patient ID: Emigdio Jeong is a 83 y.o. male who presents for body aches/pain Emigdio presents today for some headache, feels tired and seems confused. [facility] that he feels achy. Current Outpatient Medications on File Prior to Visit Medication Sig Dispense Refill aspirin 81 MG EC tablet Take 1 tablet (81 mg) by mouth Daily 30 tablet 11 atorvastatin (Lipitor) 20 MG tablet Take 20 mg by mouth in the morning. cyanocobalamin (Vitamin B-12) 1000 MCG tablet Take 1,000 mcg by mouth Daily losartan-hydroCHLOROthiazide (Hyzaar) 50-12.5 MG tablet Take 1 tablet by mouth Daily 90 tablet 3 Omeprazole 20 MG tablet delayed-release Take 20 mg by mouth Daily traZODone (Desyrel) 50 MG tablet Take 1 tablet (50 mg) by mouth at bedtime 30 tablet 11 warfarin (Coumadin) 4 MG tablet Take 1 tablet (4 mg) by mouth 1 (one) time each day Take as directed per After Visit Summary.- dose changing weekly per lab results 90 tablet 11 No current facility-administered medications on file prior to visit. I have reviewed and reconciled the history and medication list with the patient today. No Known Allergies Social History Tobacco Use Smoking status: Former Types: Cigarettes Smokeless tobacco: Never Vaping Use Vaping status: Unknown Substance Use Topics Alcohol use: Defer Drug use: Defer No family history on file. Past Medical History: Diagnosis Date A-fib (CMS/HCC) Glaucoma (CMS/HCC) Hypercholesteremia (CMS/HCC) Hypertension (CMS/HCC) Past Surgical History: Procedure Laterality Date CATARACT EXTRACTION Bilateral NCEA GLAUCOMA SURGERY Bilateral 2021 SLT - OU Visit Vitals Smoking Status Former Review of Systems Objective Physical Exam Assessment/Plan No follow-ups on file. Images from the original note were not included. Subjective Patient ID: Emigdio Jeong is a 83 y.o. male who presents for No chief complaint on file.. Body aches all over. Had a 99.0 temp. Has not had any vomiting. Feels very weak. Does has periods of dizziness. Poor appetite. Review of Systems Constitutional: Positive for appetite change, fatigue and fever. Respiratory: Positive for shortness of breath. Musculoskeletal: Positive for myalgias. Neurological: Positive for dizziness and weakness. Objective Physical Exam Vitals reviewed. Constitutional: Appearance: He is ill-appearing. HENT: Head: Normocephalic. Right Ear: There is impacted cerumen. Left Ear: There is impacted cerumen. Nose: Congestion present. Mouth/Throat: Mouth: Mucous membranes are moist. Pharynx: Oropharynx is clear. Posterior oropharyngeal erythema present. Eyes: Conjunctiva/sclera: Conjunctivae normal. Cardiovascular: Rate and Rhythm: Normal rate and regular rhythm. Pulmonary: Effort: Pulmonary effort is normal. Breath sounds: Normal breath sounds. Abdominal: General: Bowel sounds are normal. Palpations: Abdomen is soft. Skin: General: Skin is warm and dry. Neurological: General: No focal deficit present. Mental Status: He is alert and oriented to person, place, and time. Psychiatric: Mood and Affect: Mood normal. Behavior: Behavior normal. Assessment/Plan Diagnoses and all orders for this visit: Cerumen debris on tympanic membrane of both ears - carbamide peroxide (Debrox) 6.5 % otic solution; Administer 5-10 drops into affected ear(s) in the morning and 5-10 drops before bedtime. Do all this for 4 days. - CBC; Future Debrox as ordered. Script given to nursing facility Weakness - CBC; Future - Comprehensive metabolic panel; Future Await lab results Other fatigue - Comprehensive metabolic panel; Future This is a chronic medical condition that is stable since last assessment. No changes in treatment are suggested at this time. Await lab Acute non-recurrent pansinusitis - CBC; Future - azithromycin (Zithromax) 250 MG tablet; Take 2 tablets (500 mg) by mouth Daily for 1 day, THEN 1 tablet (250 mg) Daily for 4 days. Start the above as directed. Reviewed potential s/e with patient. Encouraged probiotic while on antibiotic. Increase water intake, get plenty of rest. Can take OTC allergy medication for symptomatic relief. Tylenol/Motrin prn. Follow up if no improvement in one week. Longstanding persistent atrial fibrillation (CMS/HCC) This is a chronic medical condition that is stable since last assessment. No changes in treatment are suggested at this time. Dementia in other diseases classified elsewhere, moderate, without behavioral This is a chronic medical condition that is stable since last assessment. No changes in treatment are suggested at this time. disturbance, psychotic disturbance, mood disturbance, and anxiety (CMS/HCC) Unspecified atrial fibrillation (CMS/HCC) This is a chronic medical condition that is stable since last assessment. No changes in treatment are suggested at this time. Dementia in other diseases classified elsewhere, severe, with agitation (CMS/HCC) Alzheimer's disease with late onset (CODE) (CMS/HCC) This is a chronic medical condition that is stable since last assessment. No changes in treatment are suggested at this time. documented in this encounter [facility] 05-27-2024 History of Present illness Narrative Images from the original note were not included. HPI INR VISIT Additional comments: Coumadin 6mg everyday EXCEPT Thursday 4mg Results Additional comments: Lab results Last edited by Fannie Ackerman LPN on 05/27/2024 9:53 AM. Subjective Patient ID: Emigdio Jeong is a 83 y.o. male who presents for INR VISIT (Coumadin 6mg everyday EXCEPT Thursday 4mg ), Results (Lab results), and Foot Pain. Pt states he noticed some left foot pain when walking 3 days ago Denies recent injury or fall Denies any swelling in foot Pt states he had one episode in last week or so he woke up in the middle of the night he felt disoriented and dizzy and fell Denies hitting head or LOC or any bodily pain after fall Pt states after a little while he was back to normal Denies any episode since then Current Outpatient Medications on File Prior to Visit Medication Sig Dispense Refill aspirin 81 MG EC tablet Take 1 tablet (81 mg) by mouth Daily 30 tablet 11 atorvastatin (Lipitor) 20 MG tablet Take 20 mg by mouth in the morning. cyanocobalamin (Vitamin B-12) 1000 MCG tablet Take 1,000 mcg by mouth Daily losartan-hydroCHLOROthiazide (Hyzaar) 50-12.5 MG tablet Take 1 tablet by mouth Daily 90 tablet 3 Omeprazole 20 MG tablet delayed-release Take 20 mg by mouth Daily traZODone (Desyrel) 50 MG tablet Take 1 tablet (50 mg) by mouth at bedtime 30 tablet 11 warfarin (Coumadin) 4 MG tablet Take 1 tablet (4 mg) by mouth 1 (one) time each day Take as directed per After Visit Summary.- dose changing weekly per lab results 90 tablet 11 No current facility-administered medications on file prior to visit. I have reviewed and reconciled the history and medication list with the patient today. No Known Allergies Social History Tobacco Use Smoking status: Former Types: Cigarettes Smokeless tobacco: Never No family history on file. Past Medical History: Diagnosis Date A-fib (CMS/HCC) Glaucoma (CMS/HCC) Hypercholesteremia (CMS/HCC) Hypertension (CMS/HCC) Past Surgical History: Procedure Laterality Date CATARACT EXTRACTION Bilateral NCEA GLAUCOMA SURGERY Bilateral 2021 SLT - OU Visit Vitals BP 112/70 Comment: standing 100 66 Pulse 56 Ht 6' Wt 237 lb SpO2 94% BMI 32.14 kg/m Smoking Status Former BSA 2.34 m Review of Systems Objective Physical Exam Constitutional: General: He is not in acute distress. Appearance: He is normal weight. He is not ill-appearing. HENT: Head: Normocephalic. Cardiovascular: Rate and Rhythm: Normal rate and regular rhythm. Heart sounds: Murmur heard. Systolic murmur is present with a grade of 2/6. Pulmonary: Effort: Pulmonary effort is normal. Breath sounds: Normal breath sounds. Musculoskeletal: General: No swelling. Right lower le+ Edema present. Left lower le+ Edema present. Neurological: Mental Status: He is alert. Psychiatric: Mood and Affect: Mood normal. Thought Content: Thought content normal. Judgment: Judgment normal. Office Visit on 05/27/2024 Component Date Value Ref Range Status RESULTS 05/27/2024 4.7 Final Office Visit on 04/29/2024 Component Date Value Ref Range Status RESULTS 04/29/2024 4.2 Final WHITE BLOOD CELL COUNT 04/29/2024 5.2 3.8 - 10.8 Thousand/uL Final RED BLOOD CELL COUNT 04/29/2024 5.33 4.20 - 5.80 Million/uL Final HEMOGLOBIN 04/29/2024 13.0 (L) 13.2 - 17.1 g/dL Final HEMATOCRIT 04/29/2024 41.8 38.5 - 50.0 % Final MCV 04/29/2024 78.4 (L) 80.0 - 100.0 fL Final MCH 04/29/2024 24.4 (L) 27.0 - 33.0 pg Final MCHC 04/29/2024 31.1 (L) 32.0 - 36.0 g/dL Final Comment: For adults, a slight decrease in the calculated MCHC value (in the range of 30 to 32 g/dL) is most likely not clinically significant; however, it should be interpreted with caution in correlation with other red cell parameters and the patient's clinical condition. RDW 04/29/2024 16.9 (H) 11.0 - 15.0 % Final PLATELET COUNT 04/29/2024 171 140 - 400 Thousand/uL Final MPV 04/29/2024 11.1 7.5 - 12.5 fL Final ABSOLUTE NEUTROPHILS 04/29/2024 3,364 1,500 - 7,800 cells/uL Final ABSOLUTE LYMPHOCYTES 04/29/2024 1,050 850 - 3,900 cells/uL Final ABSOLUTE MONOCYTES 04/29/2024 634 200 - 950 cells/uL Final ABSOLUTE EOSINOPHILS 04/29/2024 99 15 - 500 cells/uL Final ABSOLUTE BASOPHILS 04/29/2024 52 0 - 200 cells/uL Final NEUTROPHILS 04/29/2024 64.7 % Final LYMPHOCYTES 04/29/2024 20.2 % Final MONOCYTES 04/29/2024 12.2 % Final EOSINOPHILS 04/29/2024 1.9 % Final BASOPHILS 04/29/2024 1.0 % Final Glucose 04/29/2024 149 (H) 65 - 99 mg/dL Final Comment: Fasting reference interval For someone without known diabetes, a glucose value >125 mg/dL indicates that they may have diabetes and this should be confirmed with a follow-up test. BUN 04/29/2024 12 7 - 25 mg/dL Final Creatinine 04/29/2024 1.17 0.70 - 1.22 mg/dL Final EGFR 04/29/2024 63 > OR = 60 mL/min/1.73m2 Final BUN/CREATININE RATIO 04/29/2024 SEE NOTE: (calc) Final Comment: Not Reported: BUN and Creatinine are within reference range. Sodium 04/29/2024 140 135 - 146 mmol/L Final Potassium, Bld 04/29/2024 3.9 3.5 - 5.3 mmol/L Final Chloride 04/29/2024 103 98 - 110 mmol/L Final Carbon Dioxide 04/29/2024 29 20 - 32 mmol/L Final Calcium 04/29/2024 9.0 8.6 - 10.3 mg/dL Final PROTEIN, TOTAL 04/29/2024 6.2 6.1 - 8.1 g/dL Final ALBUMIN 04/29/2024 4.0 3.6 - 5.1 g/dL Final GLOBULIN 04/29/2024 2.2 1.9 - 3.7 g/dL (calc) Final ALBUMIN/GLOBULIN RATIO 04/29/2024 1.8 1.0 - 2.5 (calc) Final BILIRUBIN, TOTAL 04/29/2024 0.6 0.2 - 1.2 mg/dL Final ALKALINE PHOSPHATASE 04/29/2024 70 35 - 144 U/L Final AST 04/29/2024 16 10 - 35 U/L Final ALT 04/29/2024 17 9 - 46 U/L Final Assessment/Plan Diagnoses and all orders for this visit: Orthostatic hypotension - Decrease Losartan/hydrochlorothiazide to 1/2 tab a day Longstanding persistent atrial fibrillation (CMS/HCC) - POCT Protime-INR, fingerstick docked device - Decrease Coumadin- skip X 2 days, then new reduced dose- 4mg on and Thu; 6mg all other days. Follow up in about 4 weeks (around 06/24/2024) for PT/INR, F/U med changes. documented in this encounter [facility] 05-16-2024 History of Present illness Narrative Images from the original note were not included. Chief complaint: Memory loss Subjective Emigdio Jeong, 83 y.o., male Patient presents today for a follow up for Alzheimer's disease. Patient presents today with his daughter. Patient currently resides at [facility]. Patients daughter states since he has moved from the [place] to [facility] she has noticed a difference. She states he has had no hallucinations since being there. She believes this is because he is receiving his medication correctly here. She is getting healthy meals and she believes the social environment has been helpful. Patient states he feels good. They deny any new concerns at this time. Review of Systems Constitutional: Negative for appetite change, fatigue and fever. Respiratory: Negative for cough, shortness of breath and wheezing. Cardiovascular: Negative for chest pain, palpitations and leg swelling. Gastrointestinal: Negative for abdominal pain, constipation, diarrhea and nausea. Musculoskeletal: Negative for arthralgias, gait problem and myalgias. Neurological: Negative for dizziness, tremors, numbness and headaches. Patient endorses memory impairment Past Medical History: Diagnosis Date A-fib (CMS/HCC) Glaucoma (CMS/HCC) Hypercholesteremia (CMS/HCC) Hypertension (CMS/HCC) Past Surgical History: Procedure Laterality Date CATARACT EXTRACTION Bilateral NCEA GLAUCOMA SURGERY Bilateral 2021 SLT - OU No family history on file. Social History Tobacco Use Smoking status: Former Types: Cigarettes Smokeless tobacco: Never Substance Use Topics Alcohol use: Not on file Allergies: Patient has no known allergies. Vitals: 05/16/24 1207 BP: 132/80 Pulse: 89 SpO2: 97% Body mass index is 32.28 kg/m . weight: 238 lb Neurologic exam: Mental status: Awake, alert to person, place and time. Language is fluent without aphasia. Attention and concentration are normal. Impaired 3 object recall Cranial nerves: CN II: Visual acuity is normal. Visual rolon full to confrontation. CN III, IV, : pupils equal round and reactive to light. Extraocular movements intact. No ptosis present. CN V: Facial sensation is normal. CN VII: Full and symmetric facial movement. CN VIII: Hearing is normal to finger rub bilaterally: CN IX and X: Palate elevates symmetrically. CN XI: Shoulder shrug is normal bilaterally. CN XII: Tongue is midline without atrophy or fasciculation. Motor: Strength is 5/5 throughout. Bulk is normal. Sensory: Sensation is intact to light touch throughout Four extremities. Reflexes: Deep tendon reflexes are 2+ and symmetric throughout. Coordination: [id number] testing and rapid alternating movements are normal Gait: Normal Review and summary of old records: CT of the brain without contrast on 12/17/2023: Atrophy and chronic microvascular changes. No acute intracranial abnormality. MRI of the brain without contrast on 12/17/2023: No acute intracranial pathology. Remote lacunar infarcts. Chronic age-related degenerative changes. Diminished flow void in V4 on the left vertebral artery which may be chronic. Carotid ultrasound on 12/21/2023: No hemodynamically significant stenosis. Antegrade vertebral flow. Vitamin B12 was only mildly diminished at 174. Thyroid stimulating hormone within normal limits. RPR is negative. Whole blood lead level is normal 2D echocardiogram showed EF 55-60 percent ejection fraction with no evidence of mass, vegetation or thrombus. I did review hospital admission where the patient was found to have some episodes of lightheadedness and blurriness and was admitted to the hospital for further evaluation. Concerned that this may have been a neurodegenerative disease such as Lewy body dementia. 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 I feel this is most likely Alzheimer's type. Extensive evaluation is detailed as above. The patient's Juarez cognitive assessment was 3/30 but I do think some of this was effort dependent. His mood and nighttime seems to be better since last visit. The patient's daughter does feel that since transitioned to [employer] his memory, medication dosages and overall mood have been stable to improved. Plan: I have advised the patient not to drive. His daughters were with him today and will help imposed these restrictions. - ok to continue to use trazadone. We previously tried to use quetiapine but facility seems to have changed this to trazodone and the patient seems to be doing well so we will not alter it further at this time History of ischemic stroke Patient does have evidence of lacunar infarct identified previously on MRI imaging. Patient really did not have any focal deficits related to these findings and does not really believe he had a stroke in the past. Plan: Continue aspirin 81 mg p.o. daily The patient was educated on signs and symptoms of stroke and told the emergency department right away with any signs or symptoms. Pt has been fully educated on their diagnosis, lab results, treatment options, follow up plan, and return instructions documented in this encounter [facility] 04-29-2024 History of Present illness Narrative Images from the original note were not included. HPI INR VISIT Additional comments: Coumadin 6mg Qd Last edited by Fannie Ackerman LPN on 04/29/2024 10:00 AM. Subjective Patient ID: Emigdio Jeong is a 83 y.o. male who presents for INR VISIT (Coumadin 6mg Qd). Taking coumadin as directed Denies any abnormal bleeding Her for INR Current Outpatient Medications on File Prior to Visit Medication Sig Dispense Refill aspirin 81 MG EC tablet Take 1 tablet (81 mg) by mouth Daily 30 tablet 11 atorvastatin (Lipitor) 20 MG tablet Take 20 mg by mouth in the morning. cyanocobalamin (Vitamin B-12) 1000 MCG tablet Take 1,000 mcg by mouth Daily losartan-hydroCHLOROthiazide (Hyzaar) 50-12.5 MG tablet Take 1 tablet by mouth Daily 90 tablet 3 Omeprazole 20 MG tablet delayed-release Take 20 mg by mouth Daily traZODone (Desyrel) 50 MG tablet Take 1 tablet (50 mg) by mouth at bedtime 30 tablet 11 warfarin (Coumadin) 4 MG tablet Take 1 tablet (4 mg) by mouth 1 (one) time each day Take as directed per After Visit Summary.- dose changing weekly per lab results 90 tablet 11 No current facility-administered medications on file prior to visit. I have reviewed and reconciled the history and medication list with the patient today. No Known Allergies Social History Tobacco Use Smoking status: Former Types: Cigarettes Smokeless tobacco: Never No family history on file. Past Medical History: Diagnosis Date A-fib (CMS/HCC) Glaucoma (CMS/HCC) Hypercholesteremia (CMS/HCC) Hypertension (CMS/HCC) Past Surgical History: Procedure Laterality Date CATARACT EXTRACTION Bilateral NCEA GLAUCOMA SURGERY Bilateral 2021 SLT - OU Visit Vitals BP 124/76 Pulse 70 Ht 6' Wt 241 lb SpO2 95% BMI 32.69 kg/m Smoking Status Former BSA 2.35 m Review of Systems Objective Physical Exam Constitutional: General: He is not in acute distress. Appearance: He is normal weight. He is not ill-appearing. HENT: Head: Normocephalic. Cardiovascular: Rate and Rhythm: Normal rate and regular rhythm. Heart sounds: Murmur heard. Systolic murmur is present with a grade of 2/6. Pulmonary: Effort: Pulmonary effort is normal. Breath sounds: Normal breath sounds. Musculoskeletal: General: No swelling. Right lower le+ Edema present. Left lower le+ Edema present. Neurological: Mental Status: He is alert. Psychiatric: Mood and Affect: Mood normal. Thought Content: Thought content normal. Judgment: Judgment normal. Office Visit on 04/29/2024 Component Date Value Ref Range Status RESULTS 04/29/2024 4.2 Final WHITE BLOOD CELL COUNT 04/29/2024 5.2 3.8 - 10.8 Thousand/uL Final RED BLOOD CELL COUNT 04/29/2024 5.33 4.20 - 5.80 Million/uL Final HEMOGLOBIN 04/29/2024 13.0 (L) 13.2 - 17.1 g/dL Final HEMATOCRIT 04/29/2024 41.8 38.5 - 50.0 % Final MCV 04/29/2024 78.4 (L) 80.0 - 100.0 fL Final MCH 04/29/2024 24.4 (L) 27.0 - 33.0 pg Final MCHC 04/29/2024 31.1 (L) 32.0 - 36.0 g/dL Final Comment: For adults, a slight decrease in the calculated MCHC value (in the range of 30 to 32 g/dL) is most likely not clinically significant; however, it should be interpreted with caution in correlation with other red cell parameters and the patient's clinical condition. RDW 04/29/2024 16.9 (H) 11.0 - 15.0 % Final PLATELET COUNT 04/29/2024 171 140 - 400 Thousand/uL Final MPV 04/29/2024 11.1 7.5 - 12.5 fL Final ABSOLUTE NEUTROPHILS 04/29/2024 3,364 1,500 - 7,800 cells/uL Final ABSOLUTE LYMPHOCYTES 04/29/2024 1,050 850 - 3,900 cells/uL Final ABSOLUTE MONOCYTES 04/29/2024 634 200 - 950 cells/uL Final ABSOLUTE EOSINOPHILS 04/29/2024 99 15 - 500 cells/uL Final ABSOLUTE BASOPHILS 04/29/2024 52 0 - 200 cells/uL Final NEUTROPHILS 04/29/2024 64.7 % Final LYMPHOCYTES 04/29/2024 20.2 % Final MONOCYTES 04/29/2024 12.2 % Final EOSINOPHILS 04/29/2024 1.9 % Final BASOPHILS 04/29/2024 1.0 % Final Glucose 04/29/2024 149 (H) 65 - 99 mg/dL Final Comment: Fasting reference interval For someone without known diabetes, a glucose value >125 mg/dL indicates that they may have diabetes and this should be confirmed with a follow-up test. BUN 04/29/2024 12 7 - 25 mg/dL Final Creatinine 04/29/2024 1.17 0.70 - 1.22 mg/dL Final EGFR 04/29/2024 63 > OR = 60 mL/min/1.73m2 Final BUN/CREATININE RATIO 04/29/2024 SEE NOTE: (calc) Final Comment: Not Reported: BUN and Creatinine are within reference range. Sodium 04/29/2024 140 135 - 146 mmol/L Final Potassium, Bld 04/29/2024 3.9 3.5 - 5.3 mmol/L Final Chloride 04/29/2024 103 98 - 110 mmol/L Final Carbon Dioxide 04/29/2024 29 20 - 32 mmol/L Final Calcium 04/29/2024 9.0 8.6 - 10.3 mg/dL Final PROTEIN, TOTAL 04/29/2024 6.2 6.1 - 8.1 g/dL Final ALBUMIN 04/29/2024 4.0 3.6 - 5.1 g/dL Final GLOBULIN 04/29/2024 2.2 1.9 - 3.7 g/dL (calc) Final ALBUMIN/GLOBULIN RATIO 04/29/2024 1.8 1.0 - 2.5 (calc) Final BILIRUBIN, TOTAL 04/29/2024 0.6 0.2 - 1.2 mg/dL Final ALKALINE PHOSPHATASE 04/29/2024 70 35 - 144 U/L Final AST 04/29/2024 16 10 - 35 U/L Final ALT 04/29/2024 17 9 - 46 U/L Final Assessment/Plan Diagnoses and all orders for this visit: Longstanding persistent atrial fibrillation (CMS/HCC) - POCT Protime-INR, fingerstick docked device - CBC and differential - Comprehensive metabolic panel; Future - Skip next 2 days of cpumadin then start new dosinmg on Thursday, 6mg all other nights. Follow up in about 6 weeks (around 06/10/2024) for PT/INR, Test/Lab Review. documented in this encounter [facility] 03-18-2024 History of Present illness Narrative Images from the original note were not included. HPI INR VISIT Additional comments: Coumadin 9mg sun 6mg all other days Last edited by Fannie Ackerman LPN on 03/18/2024 10:58 AM. Subjective Patient ID: Emigdio Jeong is a 83 y.o. male who presents for INR VISIT (Coumadin 9mg sun 6mg all other days). Taking coumadin as directed Denies any abnormal bleeding Her for INR Current Outpatient Medications on File Prior to Visit Medication Sig Dispense Refill aspirin 81 MG EC tablet Take 1 tablet (81 mg) by mouth Daily 30 tablet 11 atorvastatin (Lipitor) 20 MG tablet Take 20 mg by mouth in the morning. cyanocobalamin (Vitamin B-12) 1000 MCG tablet Take 1,000 mcg by mouth Daily losartan-hydroCHLOROthiazide (Hyzaar) 50-12.5 MG tablet Take 1 tablet by mouth Daily 90 tablet 3 Omeprazole 20 MG tablet delayed-release Take 20 mg by mouth Daily traZODone (Desyrel) 50 MG tablet Take 1 tablet (50 mg) by mouth at bedtime 30 tablet 11 warfarin (Coumadin) 4 MG tablet Take 1 tablet (4 mg) by mouth 1 (one) time each day Take as directed per After Visit Summary.- dose changing weekly per lab results 90 tablet 11 No current facility-administered medications on file prior to visit. I have reviewed and reconciled the history and medication list with the patient today. No Known Allergies Social History Tobacco Use Smoking status: Former Types: Cigarettes Smokeless tobacco: Never No family history on file. Past Medical History: Diagnosis Date A-fib (CMS/HCC) Glaucoma (CMS/HCC) Hypercholesteremia (CMS/HCC) Hypertension (CMS/HCC) Past Surgical History: Procedure Laterality Date CATARACT EXTRACTION Bilateral NCEA GLAUCOMA SURGERY Bilateral 2021 SLT - OU Visit Vitals BP 118/74 Pulse 94 Ht 6' Wt 239 lb SpO2 96% BMI 32.41 kg/m Smoking Status Former BSA 2.34 m Review of Systems Objective Physical Exam Constitutional: General: He is not in acute distress. Appearance: He is normal weight. He is not ill-appearing. HENT: Head: Normocephalic. Cardiovascular: Rate and Rhythm: Normal rate and regular rhythm. Heart sounds: Murmur heard. Systolic murmur is present with a grade of 2/6. Pulmonary: Effort: Pulmonary effort is normal. Breath sounds: Normal breath sounds. Musculoskeletal: General: No swelling. Right lower le+ Edema present. Left lower le+ Edema present. Neurological: Mental Status: He is alert. Psychiatric: Mood and Affect: Mood normal. Thought Content: Thought content normal. Judgment: Judgment normal. Office Visit on 03/18/2024 Component Date Value Ref Range Status RESULTS 03/18/2024 3.3 Final Office Visit on 02/29/2024 Component Date Value Ref Range Status RESULTS 02/29/2024 1.7 Final Assessment/Plan Diagnoses and all orders for this visit: Longstanding persistent atrial fibrillation (CMS/HCC) - POCT Protime-INR, fingerstick docked device - Skip next dose of coumadin, then reduce dose to 6mg every day. Follow up in about 6 weeks (around 04/29/2024) for PT/INR. documented in this encounter [facility] 02-29-2024 History of Present illness Narrative Images from the original note were not included. HPI Coagulation Disorder Additional comments: Coumadin 4mg Thursday, 6mg all other days Last edited by Darline Huerta MA on 02/29/2024 8:03 AM. Subjective Patient ID: Emigdio Jeong is a 83 y.o. male who presents for Coagulation Disorder (Coumadin 4mg Thursday, 6mg all other days ). Pt is here for INR check , INR today is 1.7 Current Outpatient Medications on File Prior to Visit Medication Sig Dispense Refill aspirin 81 MG EC tablet Take 1 tablet (81 mg) by mouth Daily 30 tablet 11 atorvastatin (Lipitor) 20 MG tablet Take 20 mg by mouth in the morning. cyanocobalamin (Vitamin B-12) 1000 MCG tablet Take 1,000 mcg by mouth Daily losartan-hydroCHLOROthiazide (Hyzaar) 50-12.5 MG tablet Take 1 tablet by mouth Daily 90 tablet 3 Omeprazole 20 MG tablet delayed-release Take 20 mg by mouth Daily traZODone (Desyrel) 50 MG tablet Take 1 tablet (50 mg) by mouth at bedtime 30 tablet 11 warfarin (Coumadin) 4 MG tablet Take 4 mg by mouth 1 (one) time each day Take as directed per After Visit Summary. No current facility-administered medications on file prior to visit. I have reviewed and reconciled the history and medication list with the patient today. No Known Allergies Social History Tobacco Use Smoking status: Former Types: Cigarettes Smokeless tobacco: Never No family history on file. Past Medical History: Diagnosis Date A-fib (CMS/HCC) Glaucoma (CMS/HCC) Hypercholesteremia (CMS/HCC) Hypertension (CMS/HCC) Past Surgical History: Procedure Laterality Date CATARACT EXTRACTION Bilateral NCEA GLAUCOMA SURGERY Bilateral 2021 SLT - OU Visit Vitals BP 122/78 Pulse 80 Ht 6' Wt 238 lb SpO2 98% BMI 32.28 kg/m Smoking Status Former BSA 2.34 m Review of Systems Objective Physical Exam Constitutional: General: He is not in acute distress. Appearance: He is normal weight. He is not ill-appearing. HENT: Head: Normocephalic. Cardiovascular: Rate and Rhythm: Normal rate and regular rhythm. Heart sounds: Murmur heard. Systolic murmur is present with a grade of 2/6. Pulmonary: Effort: Pulmonary effort is normal. Breath sounds: Normal breath sounds. Musculoskeletal: General: No swelling. Right lower le+ Edema present. Left lower le+ Edema present. Neurological: Mental Status: He is alert. Psychiatric: Mood and Affect: Mood normal. Thought Content: Thought content normal. Judgment: Judgment normal. Office Visit on 02/29/2024 Component Date Value Ref Range Status RESULTS 02/29/2024 1.7 Final Assessment/Plan Diagnoses and all orders for this visit: LVH (left ventricular hypertrophy) Longstanding persistent atrial fibrillation (CMS/HCC) - POCT Protime-INR, fingerstick docked device - Increase coumadin to 9mg on Thursday, 6mg all other days - Has pulse deficit, 80 apical, 44 with pulse ox Localized edema - Improving with HCTZ Follow up in about 2 weeks (around 03/14/2024) for PT/INR. documented in this encounter [facility] 02-17-2024 History of Present illness Narrative Images from the original note were not included. HPI Establish Care Additional comments: Previous PCP Dr Rich Oconnell at [facility] and [facility] cardiology [facility] neurology [place] INR VISIT Additional comments: Coumadin 4mg Mon 6mg all other days Last edited by Fannie Ackerman LPN on 02/17/2024 2:46 PM. Subjective Patient ID: Emigdio Jeong is a 83 y.o. male who presents for Establish Care (Previous PCP Dr Villanueva/Anish at [facility] cardiology [place]/[facility] neurology [place]) and INR VISIT (Coumadin 4mg Mon 6mg all other days). Pt accompanied by 2 family members (children) Med list updated [facility] dispenses meds to pt Regular diet He denies any medical complaints Would like PCP to take over coumadin treatment he is going to have INR checked every 2 weeks and is difficult for family to transport him coming to [place] would be more convenient Current Outpatient Medications on File Prior to Visit Medication Sig Dispense Refill aspirin 81 MG EC tablet Take 1 tablet (81 mg) by mouth Daily 30 tablet 11 atorvastatin (Lipitor) 20 MG tablet Take 20 mg by mouth in the morning. cyanocobalamin (Vitamin B-12) 1000 MCG tablet Take 1,000 mcg by mouth Daily Omeprazole 20 MG tablet delayed-release Take 20 mg by mouth Daily traZODone (Desyrel) 50 MG tablet Take 1 tablet (50 mg) by mouth at bedtime 30 tablet 11 warfarin (Coumadin) 4 MG tablet Take 4 mg by mouth 1 (one) time each day Take as directed per After Visit Summary. [DISCONTINUED] losartan (Cozaar) 50 MG tablet Take 50 mg by mouth Daily No current facility-administered medications on file prior to visit. I have reviewed and reconciled the history and medication list with the patient today. No Known Allergies Social History Tobacco Use Smoking status: Former Types: Cigarettes Smokeless tobacco: Never No family history on file. Past Medical History: Diagnosis Date A-fib (CMS/HCC) Glaucoma (CMS/HCC) Hypercholesteremia (CMS/HCC) Hypertension (CMS/HCC) Past Surgical History: Procedure Laterality Date CATARACT EXTRACTION Bilateral NCEA GLAUCOMA SURGERY Bilateral 2021 SLT - OU Visit Vitals BP 122/68 Pulse 83 Wt 239 lb SpO2 97% BMI 32.41 kg/m Smoking Status Former BSA 2.34 m Review of Systems Respiratory: Negative for chest tightness and shortness of breath. Cardiovascular: Positive for leg swelling. Negative for chest pain and palpitations. Objective Physical Exam Constitutional: General: He is not in acute distress. Appearance: He is normal weight. He is not ill-appearing. HENT: Head: Normocephalic. Cardiovascular: Rate and Rhythm: Normal rate and regular rhythm. Heart sounds: Murmur heard. Systolic murmur is present with a grade of 2/6. Pulmonary: Effort: Pulmonary effort is normal. Breath sounds: Normal breath sounds. Musculoskeletal: General: No swelling. Right lower le+ Edema present. Left lower le+ Edema present. Neurological: Mental Status: He is alert. Psychiatric: Mood and Affect: Mood normal. Thought Content: Thought content normal. Judgment: Judgment normal. Office Visit on 02/17/2024 Component Date Value Ref Range Status RESULTS 02/17/2024 1.4 Final Assessment/Plan Diagnoses and all orders for this visit: Longstanding persistent atrial fibrillation (CMS/HCC) - POCT Protime-INR, fingerstick docked device - Coumadin 8mg X 2 days then resume prior. 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 documented in this encounter [facility] 12-22-2023 Discharge summary Note Date/Time December 22, 2023 12:47pm [facility] [address] [place] [address] Discharge Summary Signed Patient: Emigdio Jeong III MR#: [id number] : 1940 Acct:[id number] Age/Sex: 83 / M Adm Date: 4 Loc: Room: [address] [place] [address]: Nadiya Hagan MD Copies to: DO Nadiya Patton MD~ Providers Date of Discharge: 12/22/23 Discharging Provider: Nadiya Hagan Primary Care Provider: Emigdio Villanueva Consults: 12/17/23 14:35 Consult to Occupational Therapy Routine Comment: Physician Instructions: Consult to OT for:: Evaluation and Treat Consult to Physical Therapy Routine Comment: Physician Instructions: Consult to PT for:: Evaluation and Treat Consult to Speech Therapy Routine Comment: Reason for ST Consult: Bedside Swallow Eval & Tx Diet per ST Recommendations: Yes Modified Barium Swallow Study, If Recommended: Yes 12/17/23 14:56 Consult to Neurology Routine Comment: Consulting Provider: Felipe Lopez Reason For Exam: AMS Has Provider Been Notified: Yes Date of Notification: 12/17/23 Time of Notification: 15:48 Discharge Diagnosis (1) Acute encephalopathy: (2) Hallucinations: (3) Atrial fibrillation: (4) Hypertensive urgency: (5) Old cerebrovascular accident (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: (6) B12 deficiency: Final Diagnosis Final Discharge Diagnosis: As listed above and others that are not listed Summary Hospital Course Hospital course: Mr. Jeong is an 83-year-old gentleman with a known diagnosis of A-fib. He was brought by his family due to confusion and disorientation. The patient was seen and evaluated by neurology and underwent series of workup and investigation. MRI of the brain showed no acute intracranial process but positive for old stroke as well as microvascular disease. No hydrocephalus and no other intracranial process to explain his confusion and disorientation. Patient was found also to have B12 deficiency which may be contributing to his cognitive loss. Sed rate was slightly positive and not significant enough to suggest acute inflammatory process. RPR is negative. No other significant metabolic derangement had been identified to explain his encephalopathy based on metabolic etiology. I suspect that his cognitive loss is related to vascular dementia and microvascular disease in the setting of B12 deficiency. Alternatively patient may have mixed etiology such as vascular dementia and or senile degeneration of the brain. Given his old stroke I proceeded to start patient on aspirin 81 mg daily. He isalready on Coumadin with therapeutic INR for chronic A-fib. Also requested carotid ultrasound to rule out any significant carotid stenosis and that came back negative for hemodynamic significant stenosis Also ordered echocardiogram to rule out any cardiac thrombus that is still pending. Patient was seen by physical Occupational Therapy team and recommended to be admitted to long-term facility for short period of time to Gastric bleed prevention. Patient was started on omeprazole 20 mg daily Hypertension, uncontrolled. Patient was started on losartan 25 mg daily which was later increased to 50 mg daily with good outcome. Patient has multiple complex medical issues as listed above and others that are not listed. All appear to be stable. I do not have any clear or strong clinical justification to extend inpatient hospitalization. Patient however will require close and frequent monitoring as well as additional work-up, investigation and therapeutic intervention that could take place from this pointon post discharge. That is to prevent relapse, decompensation, rehospitalization and other medical implications. I instructed patient to ask her primary care doctor to obtain [facility] record entirely to address abnormalities seen on labs and imagingthat I have and have not addressed during this hospitalization, follow-up on pending blood work, imaging and pathology is if available and to follow-up on needed medical care in the outpatient setting. Time Spent with Patient Time spent providing/coordinating discharge services (# min): 50 Discharge Plan Discharge Plan Patient Disposition: Intermediate Facility Additional Instructions: I may not have addressed or treated all of your medical illnesses or the abnormal blood work or imaging studies during this hospitalization. Please ask your primary care provider to obtain [facility] records entirely to follow up on all of the abnormal physical, laboratory, and imaging findings that I have not addressed. For [facility] providers: Recommend PT/INR every Thursday and OR every Thursday and Thursday OR every Thursday and Thursday. Please return back to the emergency room or seek medical attention if your symptoms worsen or return. Titrate Coumadin dose to keep INR between 2 and 3. Discharging you from [facility] does not mean that your medical care ends here and now. You may still need additional monitoring, work up, investigation, and treatment plan to be handled from this point on by out patient providers including your primary care provider and specialists. For any medication question, please contact your retail pharmacist or your primary care provider. Thank you.] Prescriptions: New losartan 50 mg Tablet 50 mg PO DAILY Qty: 0 0RF aspirin 81 mg Tablet,Delayed Release (Dr/Ec) 81 mg PO DAILY Qty: 0 0RF omeprazole 20 mg capsule,delayed release(DR/EC) 20 mg PO DAILY Qty: 30 0RF cyanocobalamin (vitamin B-12) 500 mcg tablet 500 mcg PO DAILY Qty: 30 0RF Continued warfarin [Juntoven] 2 mg tablet 6 mg PO 6XW Rx Instructions: thursday,thursday,,thursday, thursday and thursday warfarin 2 mg tablet 4 mg PO QWEEK Patient Comments: follows with coumadin clinic Rx Instructions: mondays Exam Physical Exam Vital Signs: Temp Pulse Resp BP Pulse Ox O2 Del Method 97.8 F 80 16 129/85 97 Room Air 12/22/23 12:26 12/22/23 12:12/22/23 12:12/22/23 12:12/22/23 12:12/22/23 12:26 Narrative: [pt is awake and alert. oriented to place, time and person HEENT: [place] conjunctiva and NL buccal mucosa Neck: Supple, no tenderness Endocrine: No Thyromegaly. Vascular: No JVD or carotid bruit. Lymphatic: No cervical lymphadenopathy. Chest: CTA no DTP. Heart IRRR, no extra sound or murmur. Abd: Soft, no tenderness, no rebound and no rigidity. Increase abd girth therefore clinically I could not exclude the possibility of intra abd mass or organomegaly. LE: No cyanosis or clubbing, no varices or edema. Neuro: Awake, alert to self and his family. Disoriented to date, month, year. Loss of insight. Normal and fluent speech. Normal and symmetrical motor and tone examination throughout. []] Diagnostic Studies Completed and Pending Studies Pending studies at discharge: 12/21/23 12:42 [facility] echo transthoracic Routine 12/23/23 05:00 PTINR [Prothrombin Time INR] IN AM 12/24/23 05:00 PTINR [Prothrombin Time INR] IN AM 12/25/23 05:00 PTINR [Prothrombin Time INR] IN AM 12/26/23 05:00 PTINR [Prothrombin Time INR] IN AM 12/27/23 05:00 PTINR [Prothrombin Time INR] IN AM 12/28/23 05:00 PTINR [Prothrombin Time INR] IN AM Labs on day of discharge: 12/22/23 06:06: PT 27.6 H, INR 2.4, Triglycerides 91, Cholesterol 148, LDL Cholesterol, Calc 89, VLDL Cholesterol 18, HDL Cholesterol 41, Cholesterol/HDL Ratio3.6 12/21/23 14:34: ESR 22 H, RPR w/Rflx to Titer Non reactive Documented By: Nadiya Hagan MD 12/22/231241 Signed By: <Electronically signed by Nadiya Hagan MD> 12/22/23 12[address] [facility] Work Phone: 1(320) 956-776607-15-2024 Progress note Author Nadiya Hagan [facility] December 21, 2023 12:49pm Note Date/Time December 21, 2023 12:4 9pm [facility] [address] [place] [address] Hospitalist Progress Note Signed Patient: Emigdio Jeong III MR#: [id number] : 1940 Acct:[id number] Age/Sex: 83 / M Adm Date: 4 Loc: Room: [address] [place] [address] Type: ADM IN Attending Dr: Nadiya Hagan MD Copies to: ~ Date of Service: 12/21/2023 Subjective Subjective Narrative: Follow-up on the patient. Patient is disoriented to date, year. Oriented to self, people. No focal deficit. Exam Physical Exam Vital Signs: Temp Pulse Resp BP Pulse Ox O2 Del Method 98.1 F 79 16 166/93 H 97 Room Air 12/21/23 08:00 12/21/23 08:00 12/21/23 08:00 12/21/23 08:00 12/21/23 08:00 12/21/23 08:00 Narrative: [pt is awake and alert. oriented to place, time and person HEENT: [place] conjunctiva and NL buccal mucosa Neck: Supple, no tenderness Endocrine: No Thyromegaly. Vascular: No JVD or carotid bruit. Lymphatic: No cervical lymphadenopathy. Chest: CTA no DTP. Heart IRRR, no extra sound or murmur. Abd: Soft, no tenderness, no rebound and no rigidity. Increase abd girth therefore clinically I could not exclude the possibility of intra abd mass or organomegaly. LE: No cyanosis or clubbing, no varices or edema. Neuro: Awake, alert to self and his family. Disoriented to date, month, year. Loss of insight. Normal and fluent speech. Normal and symmetrical motor and tone examination throughout. []] Objective Lab Results 12/18/23 14:24 12/18/23 14:24 Meds Allergies and Active Meds Allergies No Known Allergies Allergy (Verified 12/17/23 10:39) Active Meds: Active Medications Generic Name Dose Route Start Last Admin Trade Name Freq PRN Reason Stop Dose Admin Acetaminophen 650 mg 12/17/23 14:35 12/21/23 05:32 Acetaminophen 325 Mg Tablet PO 12/16/24 14:34 650 mg Q6HR PRN Administration Pain Scale 1 - 3 or fever Aspirin 81 mg 12/21/23 12:45 Aspirin 81 Mg Tablet. PO 12/20/24 12:44 DAILY CASTILLO Cyanocobalamin 1,000 mcg 12/19/23 09:00 12/21/23 10:13 Cyanocobalamin 1,000 Mcg Tablet PO 12/18/24 08:59 1,000 mcg QAM CASTILLO Administration Haloperidol 1 mg 12/18/23 18:02 12/19/23 20:20 Haloperidol 1 Mg Tablet PO 12/17/24 20:59 1 mg QPM PRN Administration sleeplessness Haloperidol Lactate 0.5 mg 12/18/23 18:02 12/18/23 20:41 Haloperidol Lactate 5 Mg/Ml Vial IV-PUSH 0.5 mg Q1H PRN Administration Agitation Labetalol HCl 10 mg 12/18/23 20:54 12/20/23 17:29 Labetalol 100 Mg/20 Ml Vial IV-PUSH 12/17/24 20:53 10 mg Q4H PRN Administration Hypertension Losartan Potassium 50 mg 12/22/23 09:00 Losartan 50 Mg Tablet PO 12/21/24 08:59 DAILY CASTILLO Losartan Potassium 25 mg 12/21/23 12:44 Losartan 25 Mg Tablet PO 12/21/23 12:45 ONCE ONE Sodium Chloride 0 ml 12/17/23 10:39 12/20/23 17:30 Sodium Chloride 0.9 % 10 Ml Syringe IV-PUSH 12/16/24 10:38 10 ml PRN PRN Administration Flush Warfarin Sodium 1 each 12/17/23 16:34 Warfarin - Pharmacy Dosing MISCELLANE 12/16/24 16:33 PRN PRN ZZ.Pharmacy Consult Protocol A&P - Hospitalist Assessment/Plan (1) Acute encephalopathy: (2) Hallucinations: (3) Atrial fibrillation: (4) Hypertensive urgency: (5) Old cerebrovascular accident (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: (6) B12 deficiency: Plan -Afebrile here, no leukocytosis, no obvious signs or symptoms of infectious process - Glucose on admission within normal limit - BUN/creatinine within normal limit - CT head with no acute pathology - Chest x-ray and UA with no acute pathology - Provided B12 supplements - Family members are concerned about leg poisoning since patient lives in old building [place] - Neurology consulted. Input appreciated. MRI brain with no acute pathology. Remote lacunar infarcts. - Started Losartan PO - PT/OT, CM following, awaiting placement. Patient states that he only takes warfarin at home, no other medications as per patient and family Diet: regular DVT ppx: Warfarin Code status: Full Status: Inpatient status Discussed with patient at bedside. All questions answered. Patient stable for discharge, pending placement to SNF. Marino Matos MD Internal Medicine Hospitalist Attending Physician 12/20: The aforementioned paragraph was documented by my colleague. Patient MRI showed old stroke and microvascular disease Proceed with additional workup and investigation for secondary stroke prevention. Patient is on warfarin. I discussed with his daughter the addition of aspirin, benefit and risk of situation. They are in agreement to proceed. Requested carotid ultrasound rule out significant carotid stenosis. Requested echocardiogram rule out thrombus. Continue warfarin treatment and managed by pharmacy to keep INR between 2 and 3 B12 deficiency. Started on B12 supplementation to Requested RPR and sed rate. Defer further needed diagnostic and therapeutic intervention and timing of theseinterventions relative to his cognitive loss to neurology team. I discussed his case with his daughter, son-in-law and his granddaughter. I answered all of her questions. I discussed this case with case management. Plan is to go to SNF when approved. Documented By: Nadiya Hagan MD 12/21/23 1245 Signed By: <Electronically signed by Nadiya Hagan MD> 12/21/23 12[address] [facility] Work Phone: [phone]) 788-513007-14-2024 Progress note Author Marino Acuña [facility] December 20, 2023 11:24am Note Date/Time December 20, 2023 11:2 4am [facility] [address] [place] [address] Hospitalist Progress Note Signed Patient: Emigdio Jeong III MR#: [id number] : 1940 Acct:[id number] Age/Sex: 83 / M Adm Date: 4 Loc: 3T Room: [address] [place] [address] Type: ADM IN Attending Dr: Marino Acuña MD Copies to: ~ Date of Service: 12/20/2023 Subjective Subjective Narrative: Patient was seen and evaluated at bedside, alert, awake, oriented to self, placenot to time. he did require haldol last night. BP better controlled after added Losartan. Neurology input appreciated. Pending placement to SNF. Exam Physical Exam Vital Signs: Temp Pulse Resp BP Pulse Ox O2 Del Method 97.2 F L 72 18 145/97 H 97 Room Air 12/20/23 08:00 12/20/23 08:00 12/20/23 08:00 12/20/23 08:00 12/20/23 08:00 12/20/23 08:00 Narrative: Const General: comfortable, cooperative. HEENT Normal oropharyngeal mucosa without any ulcers or exudates Eyes: Conjunctiva normal Pulmonary Auscultation: clear to auscultation , no crackles, no wheezes Cardiovascular Rate: normal rate Rhythm: regular rhythm Heart Sounds: S1 normal, S2 normal and no murmurs GI Inspection: non-distended Palpation: soft, not firm and nontender. No rigidity or rebound. Deferred Neuro General: alert, awake, oriented to self, place not to time. No obvious new focaldeficit Musculoskeletal: normal range of motion Extrem General: no cyanosis, no pedal edema Psych Appearance: Calm, sarcastic Objective Lab Results 12/18/23 14:24 12/18/23 14:24 Meds Allergies and Active Meds Allergies No Known Allergies Allergy (Verified 12/17/23 10:39) Active Meds: Active Medications Generic Name Dose Route Start Last Admin Trade Name Felicity PRN Reason Stop Dose Admin Acetaminophen 650 mg 12/17/23 14:35 12/20/23 02:04 Acetaminophen 325 Mg Tablet PO 12/16/24 14:34 650 mg Q6HR PRN Administration Pain Scale 1 - 3 or fever Cyanocobalamin 1,000 mcg 12/19/23 09:00 12/20/23 08:41 Cyanocobalamin 1,000 Mcg Tablet PO 12/18/24 08:59 1,000 mcg QAM CASTILLO Administration Haloperidol 1 mg 12/18/23 18:02 12/19/23 20:20 Haloperidol 1 Mg Tablet PO 12/17/24 20:59 1 mg QPM PRN Administration sleeplessness Haloperidol Lactate 0.5 mg 12/18/23 18:02 12/18/23 20:41 Haloperidol Lactate 5 Mg/Ml Vial IV-PUSH 0.5 mg Q1H PRN Administration Agitation Labetalol HCl 10 mg 12/18/23 20:54 12/18/23 21:08 Labetalol 100 Mg/20 Ml Vial IV-PUSH 12/17/24 20:53 10 mg Q4H PRN Administration Hypertension Losartan Potassium 25 mg 12/19/23 09:15 12/20/23 08:41 Losartan 25 Mg Tablet PO 12/18/24 09:14 25 mg QAM CASTILLO Administration Sodium Chloride 0 ml 12/17/23 10:39 12/18/23 21:09 Sodium Chloride 0.9 % 10 Ml Syringe IV-PUSH 12/16/24 10:38 10 ml PRN PRN Administration Flush Warfarin Sodium 1 each 12/17/23 16:34 Warfarin - Pharmacy Dosing MISCELLANE 12/16/24 16:33 PRN PRN ZZ.Pharmacy Consult Protocol Warfarin Sodium 2 mg 12/20/23 17:00 Warfarin 2 Mg Tablet PO 12/20/23 17:01 ONCE@1700 ONE A&P - Hospitalist Assessment/Plan (1) Acute encephalopathy: (2) Hallucinations: (3) Atrial fibrillation: (4) Hypertensive urgency: Plan -Afebrile here, no leukocytosis, no obvious signs or symptoms of infectious process - Glucose on admission within normal limit - BUN/creatinine within normal limit - CT head with no acute pathology - Chest x-ray and UA with no acute pathology - Provided B12 supplements - Family members are concerned about leg poisoning since patient lives in old building [place] - Neurology consulted. Input appreciated. MRI brain with no acute pathology. Remote lacunar infarcts. - Started Losartan PO - PT/OT, CM following, awaiting placement. Patient states that he only takes warfarin at home, no other medications as per patient and family Diet: regular DVT ppx: Warfarin Code status: Full Status: Inpatient status Discussed with patient at bedside. All questions answered. Patient stable for discharge, pending placement to SNF. Marino Matos MD Internal Medicine Hospitalist Attending Physician Documented By: Marino Acuña MD 12/20/2304 30 Signed By: <Electronically signed by Marino Acuña MD> 12/20/23 [facility] Work Phone: [phone]) 182-450707-13-2024 Progress note Author Barry Williamson [facility] December 19, 2023 1:05pm Note Date/Time December 19, 2023 1:05 pm [facility] [address] [place] [address] Neurology Progress Note Signed Patient: Emigdio Jeong III MR#: [id number] : 1940 Acct:[id number] Age/Sex: 83 / M Adm Date: 4 Loc: Room: [address] [place] [address] Type: ADM IN Attending Dr: Marino Acuña MD Copies to: ~ Date of Service: 12/19/2023 Subjective Subjective Narrative: The patient states his confusion has improved. He denies any focal neurologicalfindings including unilateral numbness or weakness. Review of Systems Review of Systems All other systems reviewed & are negative unless noted below or in HPI Exam Physical Exam Vital Signs: Temp Pulse Resp BP Pulse Ox O2 Del Method 97.3 F L 71 16 147/91 H 96 Room Air 12/19/23 07:44 12/19/23 11:59 12/19/23 11:59 12/19/23 11:59 12/19/23 11:59 12/19/23 11:59 Narrative: Affect normal. He is alert. Attention is good. He follows commands. Speech is fluent and nondysarthric. Pupils are equal and reactive. Ocular motility isfull. No nystagmus. Visual rolon are full to confrontation bilaterally. He reports central visual acuity issues due to glaucoma but can easily count fingers. Facial sensation is normal. Hearing is normal. Facial strength is normal. Tongue is midline. Muscle bulk, tone, and strength are normal. No tremors. Reflexes normal throughout. Light touch is normal. No limb ataxia. Objective Vital Signs Vital Signs: Vital Signs - 24 hr 12/18/23 15:10 12/18/23 17:28 12/18/23 20:44 Temperature Pulse Rate 65 82 Respiratory Rate 16 12 Blood Pressure 154/94 H 174/135 H 02 Sat by Pulse Oximetry 95 96 Oxygen Delivery Method Room Air Room Air Room Air 12/18/23 20:44 12/18/23 21:08 12/19/23 00:17 Temperature 97.9 F 97.4 F L Pulse Rate 82 82 80 Respiratory Rate 18 20 Blood Pressure 208/110 H 208/110 H 150/93 H 02 Sat by Pulse Oximetry 94 L 95 Oxygen Delivery Method Room Air Room Air 12/19/23 03:40 12/19/23 07:44 12/19/23 08:00 Temperature 97.3 F L 97.3 F L Pulse Rate 77 70 Respiratory Rate 18 14 Blood Pressure 120/75 158/101 H 02 Sat by Pulse Oximetry 95 96 Oxygen Delivery Method Room Air Room Air Room Air 12/19/23 11:59 Temperature Pulse Rate 71 Respiratory Rate 16 Blood Pressure 147/91 H 02 Sat by Pulse Oximetry 96 Oxygen Delivery Method Room Air Labs 12/18/23 14:24 12/18/23 14:24 Therapy Recommendations Therapy Recommendations: OT Recommendations OT Recommended Discharge Intermediate Facility Location OT Recommended Services at Physical Therapy,Occupational Therapy Discharge PT Recommendations PT Recommended Discharge Intermediate Facility Location PT Recommended Services at Physical Therapy Discharge ST Recommendations Liquid Consistency Thin Liquids Recommendation Solid Consistency Regular Solids Recommendations Meat Consistency Whole Meats Recommendations Medication Administration Whole Pills,Give Pills with Water Dysphagia Swallow Precautions/ Sitting Upright (90 deg) Strategies Assessment/Plan (1) Hallucinations: (2) Acute encephalopathy: (3) Altered mental status: Qualifiers: Altered mental status type: unspecified Qualified Code(s): R41.82 - Altered mental status, unspecified Plan ASSESSMENT: Concern for neurodegenerative syndrome. No evidence of an acute process on MRI scan of the brain family has noticed gradual cognitive decline over the past year. Can handle some of his ADLs, needs help with others, and at this point seems disoriented to month and year. Driving privileges taken away about 3 weeks ago after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 get PT/OT, CM to follow for possible new placement. Patient states that he only takes warfarin at home, no other medications as per patient and family Diet: regular DVT ppx: Warfarin Code status: Full Status: Inpatient status Discussed with patient and daughters at bedside. All questions answered. In agreement with the above plan Marino Matos MD Internal Medicine Hospitalist Attending Physician IP vs OBS Justification Based on differential dx, clinical care plan, and risk of adverse events, if untreated, in my clinical judgement this patient requires an acute care setting as: INPATIENT because of an expectation of an over 2 midnight stay. Estimated length of stay (# of days): 3 Documented By: Marino Acuña MD 12/17/23 14 37 Signed By: <Electronically signed by Marino Acuña MD> 12/17/23 [address] [facility] Work Phone: 1(274) 972-198801-12-2024 History of Present illness Narrative* Fletcher Ziegler MD - 06/19/2023 2:10 PM EST Subjective Emigdio Jeong is a 82 y.o. male Chief Complaint Annual Exam HPI Patient returns in follow-up of problems as noted. In the interim he is done well and denies anginaCHF or arrhythmia symptomatology. Is relatively vague in regards to symptoms and his medical therapy. He does not remember being on aspirin. We suggested to him that there is benefit of aspirin therapy because of his coronary disease and we encouraged him to resume it. He states he will. We also note he is not on a statin. He states he does not know who stopped it. We implored him to resume it and he agrees to do so. This discussion appears to be challenging. I suspect some early dementia. He states he drove here by himself. Hopefully other caregivers will tend to these developments. From a cardiac standpoint, though, we specifically queried him on chest pain dyspnea and arrhythmiaand he states he has none and because of this we presume his heart condition to be stable. He will follow-up in the near future to ensure the maintenance of our recommendations including resumption of aspirin and atorvastatin. Review of Systems All other systems reviewed and are negative. Visit Vitals BP 134/88 (BP Location: Left arm, Patient Position: Sitting) Pulse 86 Ht 1.829 m (6') Wt 99.8 kg (220 lb) BMI 29.84 kg/m Smoking Status Former BSA 2.25 m Objective Physical Exam Constitutional: Appearance: Normal appearance. He is normal weight. HENT: Nose: Nose normal. Neck: Vascular: No carotid bruit. Cardiovascular: Rate and Rhythm: Normal rate. Pulses: Normal pulses. Heart sounds: Normal heart sounds. Pulmonary: Effort: Pulmonary effort is normal. Abdominal: General: Bowel sounds are normal. Palpations: Abdomen is soft. Genitourinary: Rectum: Normal. Musculoskeletal: General: Normal range of motion. Cervical back: Normal range of motion. Right lower leg: No edema. Left lower leg: No edema. Skin: General: Skin is warm and dry. Neurological: General: No focal deficit present. Mental Status: He is alert. Psychiatric: Mood and Affect: Mood normal. Behavior: Behavior normal. Thought Content: Thought content normal. Judgment: Judgment normal. Current Medications Current Outpatient Medications: warfarin (Coumadin) 2 mg tablet, Take 3 tablets (6 mg) by mouth 3 times a week. ON Thursday AND THURSDAY. TAKE 2 TABLETS (4 MG) ORALLY ALL OTHER DAYS OR DIRECTED. [place] [facility], Disp: , Rfl: atorvastatin (Lipitor) 20 mg tablet, Take 1 tablet (20 mg) by mouth once daily., Disp: 30 tablet, Rfl: 11 Assessment/Plan 1. Coronary artery disease 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 Appears to be asymptomatic based upon detailed questioning. - atorvastatin (Lipitor) 20 mg tablet; Take 1 tablet (20 mg) by mouth once daily. Dispense: 30 tablet; Refill: 11 - Follow Up In Cardiology; Future 2. History of coronary artery bypass graft Appears to have a durable lasting result and resolution of symptomatology. 3. History of PTCA Preceded his bypass surgery. Previously improved symptoms. Uncertain now. 4. Permanent atrial fibrillation (CMS/HCC) Well-tolerated. Rate is controlled in the absence of AV david blocking agents. Stroke risk is mitigated by warfarin therapy. 5. High risk medication use Warfarin is possibly high risk for him in light of the fact that he might have evolving dementia. 6. Murmur, heart A murmur is noted today. It is new. It is rather notable and is grade 3 or grade 4. Could be aortic, could be mitral. Because of this an echocardiogram was ordered. - Transthoracic Echo (TTE) Complete; Future - Follow Up In Cardiology; Future documented in this [facility] Work Phone: 1(722) 352-297801-12-2024 Instructions* Patient Instructions* Ed Lin MA - 06/19/2023 2:10 PM EST Please bring all medicines, vitamins, and herbal supplements with you when you come to the office. Prescriptions will not be filled unless you are compliant with your follow up appointments or have a follow up appointment scheduled as per instruction of your physician. Refills should be requested at the time of your visit. [facility] Phone: [phone]) 328-940301-10-2024 Evaluation note* Encounter Date Diagnosis Assessment Notes Treatment Notes Treatment Clinical Notes Jun, Medication monitoring encounter (ICD-10 - Z51.81) Referring Provider: Fletcher Ziegler Diagnosis: Atrial Fibrillation INR Goal: 2-3 INR: 2.5 Warfarin Tablet Size: 2mg Thursday: 6mg Thursday:6mg Thursday: 6mg Thursday: 6mg : 6mg Thursday: 6mg Thursday: 6mg Total Weekly Dose: 42mg Continue plan above. Follow up in 3 weeks. At last appointment patient was adamant that they take 3 tablets (6mg daily) and not 2 tablets (4mg) once weekly. Warfarin regimen was updated to reflect this. Patient was unable to confirm how they take their warfarin regimen at this appointment. Patient thinks 3 tablets daily is correct. Patient has not had appointment with [facility] ortho assistant. Per [facility], this is scheduled on 06/19. Patient was reminded of this appointment and asked to confirm the time of this appointment with [facility]. Patient provided with [facility] phone number and address. Patient admitts to having some confusion since their 's passing. Seen by Mishel Street PharmD [place] [employer] Other 12-20-2023 Evaluation note* Encounter Date Diagnosis Assessment Notes Treatment Notes Treatment Clinical Notes May, Medication monitoring encounter (ICD-10 - Z51.81) Referring Provider: Fletcher Ziegler Diagnosis: Atrial Fibrillation INR Goal: 2-3 INR: 2.3 Warfarin Tablet Size: 2mg Thursday: 6mg Thursday:6mg Thursday: 6mg Thursday: 6mg : 6mg Thursday: 6mg Thursday: 6mg Total Weekly Dose: 42mg Continue plan above. Follow up in 3 weeks. Patient addiment that they take 3 tablets (6mg daily) and not 2 tablets (4mg) once weekly. Warfarin regimen updated to reflect this. Patient has not had appointment with [facility] ortho assistant. Patient was encouraged to make an appointment and provided with [facility] phone number. Patient states he will stop by [facility] today. Patient provided with handwritten calendar with number of tablets to take daily until date of next appointment. Seen by Mishel Street PharmD [employer] Other 11-29-2023 Evaluation note* Encounter Date Diagnosis Assessment Notes Treatment Notes Treatment Clinical Notes Apr, Medication monitoring encounter (ICD-10 - Z51.81) Referring Provider: Fletcher Ziegler Diagnosis: Atrial Fibrillation INR Goal: 2-3 INR: 1.5 Warfarin Tablet Size: 2mg Thursday: 6mg Thursday: 4mg Thursday: 6mg Thursday: 6mg : 6mg Thursday: 6mg Thursday: 6mg Total Weekly Dose: 40mg Boost an additional 2mg for 3 days, then continue with current plan, follow up in 2 weeks. Patient reports that he ran out of warfarin about 3 days ago, likely cause of subtherapeutic INR. Reminded patient to call [facility] when a refill is needed, not to wait for appointment. Patient provided with handwritten calendar with number of tablets to take daily until date of next appointment. Seen by Jeniffer Peres [facility] [employer] Other 2023 Evaluation note* Encounter Date Diagnosis Assessment Notes Treatment Notes Treatment Clinical Notes Feb, Medication monitoring encounter (ICD-10 - Z51.81) Referring Provider: Fletcher Ziegler Diagnosis: Atrial Fibrillation INR Goal: 2-3 INR: 1.8 Warfarin Tablet Size: 2mg Thursday: 6mg Thursday: 4mg Thursday: 6mg Thursday: 6mg : 6mg Thursday: 6mg Thursday: 6mg Total Weekly Dose: 40mg Boost an additional 2mg today (03/03), then continue with current plan, follow up in 2 weeks. Pt says that it is highly likely that he missed a dose of wafarin but cannot say when it may have been or if it was a 2 tablet day vs. 3 tablet day. This is likely the cause of the subtherapeutic INR. Patient unsure of how he takes his warfarin. He was provided with a calendar at his last appointment, but says he isn't sure if it helped him. When prompted, he confirms his regimen, but cannot recall on his own. He didn't have a preference for his instructions handout; recommended to try to use the calendar again. Pt reminded of importance of taking warfarin every day and that if he ever misses a dose he can call us to help him with next best steps. Pt was also offered a pill organizer but declined, stating I don't need it. Pt also declines other advice to improve adherence like using alarms or phone apps. Seen by Charis Ontiveros, Rebecca [employer] Other 08-16-2023 Evaluation note* Encounter Date Diagnosis Assessment Notes Treatment Notes Treatment Clinical Notes Jan, Medication monitoring encounter (ICD-10 - Z51.81) Referring Provider: Fletcher Ziegler Diagnosis: Atrial Fibrillation INR Goal: 2-3 INR: 2.0 Warfarin Tablet Size: 2mg Thursday: 6mg Thursday: 4mg Thursday: 6mg Thursday: 6mg : 6mg Thursday: 6mg Thursday: 6mg Total Weekly Dose: 40mg Continue with current plan, follow up in 2 weeks. Patient stated he takes his warfarin as instructed on the handout provided at each appointment, but was unsure how frequently he was taking his warfarin. Provided patient with written calender in attempt to avoid future confusion. Seen by Rebecca Carr/Mishel Street, Rebecca [employer] Other 07-11-2023 Evaluation note* Encounter Date Diagnosis Assessment Notes Treatment Notes Treatment Clinical Notes Dec, Medication monitoring encounter (ICD-10 - Z51.81) Referring Provider: Fletcher Ziegler Diagnosis: Atrial Fibrillation INR Goal: 2-3 INR: 1.8 Warfarin Tablet Size: 2mg Thursday: 6mg Thursday: 4mg Thursday: 6mg Thursday: 6mg : 6mg Thursday: 6mg Thursday: 6mg Total Weekly Dose: 40mg Boost an additional 2mg today (12/16) then continue with plan above. Follow up in 4 weeks. Patient reports taking one tablet on Thursday instead of 2. Likely cause of subtherapeutic INR. Seen by Rebecca Cobb/Mishel Street, Rebecca [employer] Other 03-29-2023 Evaluation note* Encounter Date Diagnosis Assessment Notes Treatment Notes Treatment Clinical Notes Aug, Medication monitoring encounter (ICD-10 - Z51.81) Referring Provider: Fletcher Ziegler Diagnosis: Atrial Fibrillation INR Goal: 2-3 INR: 3.0 Warfarin Tablet Size: 2mg Thursday: 6mg Thursday: 4mg Thursday: 6mg Thursday: 6mg : 6mg Thursday: 6mg Thursday: 6mg Total Weekly Dose: 40mg Continue current plan. Follow up in 4 weeks per patient preference. Seen by Jeniffer Peres, [facility] [employer] Other 03-13-2023 Evaluation note* Encounter Date Diagnosis Assessment Notes Treatment Notes Treatment Clinical Notes Aug, Medication monitoring encounter (ICD-10 - Z51.81) Referring Provider: Fletcher Ziegler Diagnosis: Atrial Fibrillation INR Goal: 2-3 INR: 3.1 Warfarin Tablet Size: 2mg Thursday: 6mg Thursday: 4mg Thursday: 6mg Thursday: 6mg : 6mg Thursday: 6mg Thursday: 6mg Total Weekly Dose: 40mg Reduce to 2mg tomorrow (has already taken today's dose), then continue current plan. Follow up in 2 weeks. Patient took 6mg today (Thursday) in error (should have been 4mg). Will reduce to 2mg Saturday 08/19 to adjust for the error. Patient has possibly been taking 6mg all days of the week since 07/10 appointment. Seen by Jeniffer Peres, [facility] [employer] Other 02-23-2023 Evaluation note* Encounter Date Diagnosis Assessment Notes Treatment Notes Treatment Clinical Notes Jul, Medication monitoring encounter (ICD-10 - Z51.81) Referring Provider: Fletcher Ziegler Diagnosis: Atrial Fibrillation INR Goal: 2-3 INR: 3.7 Warfarin Tablet Size: 2mg Thursday: 6mg Thursday: 4mg Thursday: 6mg Thursday: 6mg : 6mg Thursday: 6mg Thursday: 6mg Total Weekly Dose: 40mg Hold for 1 day (tomorrow 08/01 since patient has already taken today's dose), then continue current plan. Follow up in 2 weeks. Unknown cause of elevated INR. Patient denies taking any extra doses or changes in diet. Seen by Jeniffer Peres, [facility] [employer] Other 02-02-2023 Evaluation note* Encounter Date Diagnosis Assessment Notes Treatment Notes Treatment Clinical Notes Jul, Medication monitoring encounter (ICD-10 - Z51.81) Referring Provider: Fletcher Ziegler Diagnosis: Atrial Fibrillation INR Goal: 2-3 INR: 1.6 Warfarin Tablet Size: 2mg Thursday: 6mg Thursday: 4mg Thursday: 6mg Thursday: 6mg : 6mg Thursday: 6mg Thursday: 6mg Total Weekly Dose: 40mg Boost an additional 2mg today (2) and tomorrow (2/3), then continue current plan. Follow up in 3 weeks per patient preference. Unknown cause of subtherapeutic INR. Patient denies any missed doses or increase in Vit K rich foods. Seen by Jeniffer Peres, [facility] [employer] Other 12-19-2022 Evaluation note* Encounter Date Diagnosis Assessment Notes Treatment Notes Treatment Clinical Notes May, Medication monitoring encounter (ICD-10 - Z51.81) Referring Provider: Fletcher Ziegler Diagnosis: Atrial Fibrillation INR Goal: 2-3 INR: 2.8 Warfarin Tablet Size: 2mg Thursday: 6mg Thursday: 4mg Thursday: 6mg Thursday: 6mg : 6mg Thursday: 6mg Thursday: 6mg Total Weekly Dose: 40mg Continue current plan. Follow up in 6 weeks. Seen by Dusty Lucero PharmD [employer] Other 11-14-2022 Evaluation note* Encounter Date Diagnosis Assessment Notes Treatment Notes Treatment Clinical Notes Apr, Medication monitoring encounter (ICD-10 - Z51.81) Referring Provider: Fletcher Ziegler Diagnosis: Atrial Fibrillation INR Goal: 2-3 INR: 2.6 Warfarin Tablet Size: 2mg Thursday: 6mg Thursday: 4mg Thursday: 6mg Thursday: 6mg : 6mg Thursday: 6mg Thursday: 6mg Total Weekly Dose: 40mg Continue current plan. Follow up in 5 weeks. Patient lives out of town and would like to start spreading visits out to 6 weeks after the holidays. Seen by Yelena Puri charbel [employer] Other 09-08-2022 Evaluation note* Encounter Date Diagnosis Assessment Notes Treatment Notes Treatment Clinical Notes Feb, Medication monitoring encounter (ICD-10 - Z51.81) Referring Provider: Fletcher Ziegler Diagnosis: Atrial Fibrillation INR Goal: 2-3 INR: 2.9 Warfarin Tablet Size: 2mg Thursday: 6mg Thursday: 4mg Thursday: 6mg Thursday: 6mg : 6mg Thursday: 6mg Thursday: 6mg Total Weekly Dose: 40mg Continue current plan. Follow up in 4 weeks. Seen by Dusty Lucero PharmD [employer] Other 08-11-2022 Evaluation note* Encounter Date Diagnosis Assessment Notes Treatment Notes Treatment Clinical Notes Jan, Medication monitoring encounter (ICD-10 - Z51.81) Referring Provider: Fletcher Ziegler Diagnosis: Atrial Fibrillation INR Goal: 2-3 INR: 2.2 Tablet Size: 2mg Thursday: 6mg Thursday: 4mg Thursday: 6mg Thursday:6mg : 6mg Thursday: 6mg Thursday: 6mg Total Weekly Dose: 40mg Continue current plan. Follow up in 4 weeks. Seen by Dusty Lucero PharmD [employer] Other 07-14-2022 Evaluation note* Encounter Date Diagnosis Assessment Notes Treatment Notes Treatment Clinical Notes Dec, Medication monitoring encounter (ICD-10 - Z51.81) Referring Provider: Fletcher Ziegler Diagnosis: Atrial Fibrillation INR Goal: 2-3 INR: 1.9 Tablet Size: 2mg Thursday: 6mg Thursday: 4mg Thursday: 6mg Thursday:6mg : 6mg Thursday: 6mg Thursday: 6mg Total Weekly Dose: 40mg Continue current plan. Follow up in 4 weeks. Seen by Mili Guzman RN [employer] Other 06-02-2022 Evaluation note* Encounter Date Diagnosis Assessment Notes Treatment Notes Treatment Clinical Notes Nov, Medication monitoring encounter (ICD-10 - Z51.81) Referring Provider: Fletcher Ziegler Diagnosis: Atrial Fibrillation INR Goal: 2-3 INR: 2.1 Tablet Size: 2mg Thursday: 6mg Thursday: 4mg Thursday: 6mg Thursday:6mg : 6mg Thursday: 6mg Thursday: 6mg Total Weekly Dose: 40mg Continue current plan. Follow up in 4 weeks. Seen by Dusty Lucero PharmD [employer] Other 05-19-2022 Evaluation note* Encounter Date Diagnosis Assessment Notes Treatment Notes Treatment Clinical Notes October, Medication monitoring encounter (ICD-10 - Z51.81) Referring Provider: Fletcher Ziegler Diagnosis: Atrial Fibrillation INR Goal: 2-3 INR: 1.8 Tablet Size: 2mg Thursday: 6mg Thursday: 4mg Thursday: 6mg Thursday:6mg : 6mg Thursday: 6mg Thursday: 6mg Total Weekly Dose: 40mg Begin new plan, a 5% increase. INR is low due to increase of vitamin K intake yesterday. Patient agreed to avoid dark greens and coleslaw today. Follow up in 2 weeks. See calendar. Seen by Mili Guzman RN [employer] Other 04-28-2022 Evaluation note* Encounter Date Diagnosis Assessment Notes Treatment Notes Treatment Clinical Notes Sep, Medication monitoring encounter (ICD-10 - Z51.81) Referring Provider: Fletcher Ziegler Diagnosis: Atrial Fibrillation INR Goal: 2-3 INR: 2.0 Tablet Size: 2mg Thursday: 6mg Thursday: 4mg Thursday: 6mg Thursday:6mg : 6mg Thursday: 4mg Thursday: 6mg Total Weekly Dose: 34mg Continue current plan. Follow up in 3 weeks. Seen by Dusty Lucero PharmD [employer] Other 04-14-2022 Evaluation note* Encounter Date Diagnosis Assessment Notes Treatment Notes Treatment Clinical Notes Sep, Medication monitoring encounter (ICD-10 - Z51.81) Referring Provider: Fletcher Ziegler Diagnosis: Atrial Fibrillation INR Goal: 2-3 INR: 1.6 Tablet Size: 2mg Thursday: 6mg Thursday: 4mg Thursday: 6mg Thursday:6mg : 6mg Thursday: 4mg Thursday: 6mg Total Weekly Dose: 34mg Boost additional 2mg x2 days, then begin new plan, a 6% increase. Follow up in 2 weeks. Unknown reason for recent low INR's. See calendar. Seen by Mili Guzman RN [employer] Other 03-31-2022 Evaluation note* Encounter Date Diagnosis Assessment Notes Treatment Notes Treatment Clinical Notes Aug, Medication monitoring encounter (ICD-10 - Z51.81) Referring Provider: Fletcher Ziegler Diagnosis: Atrial Fibrillation INR Goal: 2-3 INR: 1.7 Tablet Size: 2mg Thursday: 6mg Thursday: 4mg Thursday: 6mg Thursday: 4mg : 6mg Thursday: 4mg Thursday: 6mg Total Weekly Dose: 34mg Boost to 8mg today, then begin new plan, a 6% increase. Follow up in 4 weeks. Seen by Mili Guzman RN [employer] Other 03-03-2022 Evaluation note* Encounter Date Diagnosis Assessment Notes Treatment Notes Treatment Clinical Notes Aug, Medication monitoring encounter (ICD-10 - Z51.81) Referring Provider: Fletcher Ziegler Diagnosis: Atrial Fibrillation INR Goal: 2-3 INR: 2.0 Tablet Size: 2mg Thursday: 6mg Thursday: 4mg Thursday: 6mg Thursday: 4mg : 6mg Thursday: 4mg Thursday: 4mg Total Weekly Dose: 34mg Boost to 6mg today, then continue current plan. Follow up in 4 weeks. Seen by Mili Guzman RN [employer] Other 02-01-2022 Evaluation note* Encounter Date Diagnosis Assessment Notes Treatment Notes Treatment Clinical Notes Jul, Medication monitoring encounter (ICD-10 - Z51.81) Referring Provider: Fletcher Ziegler Diagnosis: Atrial Fibrillation INR Goal: 2-3 INR: 1.8 Tablet Size: 2mg Thursday: 6mg Thursday: 4mg Thursday: 6mg Thursday: 4mg : 6mg Thursday: 4mg Thursday: 4mg Total Weekly Dose: 34mg Boost to 6mg today, then continue current plan. Follow up in 3 weeks. Seen by Dusty Lucero PharmD [employer] Other 01-04-2022 Evaluation note* Encounter Date Diagnosis Assessment Notes Treatment Notes Treatment Clinical Notes Jun, Medication monitoring encounter (ICD-10 - Z51.81) Referring Provider: Fletcher Ziegler Diagnosis: Atrial Fibrillation INR Goal: 2-3 INR: 2.0 Tablet Size: 2mg Thursday: 6mg Thursday: 4mg Thursday: 6mg Thursday: 4mg : 6mg Thursday: 4mg Thursday: 4mg Total Weekly Dose: 34mg Continue current plan. Follow up in 4 weeks. Seen by Dusty Lucero PharmD [employer] Other 12-13-2021 Evaluation note* Encounter Date Diagnosis Assessment Notes Treatment Notes Treatment Clinical Notes May, Medication monitoring encounter (ICD-10 - Z51.81) Referring Provider: Fletcher Ziegler Diagnosis: Atrial Fibrillation INR Goal: 2-3 INR: 2.1 Tablet Size: 2mg Thursday: 6mg Thursday: 4mg Thursday: 6mg Thursday: 4mg : 6mg Thursday: 4mg Thursday: 4mg Total Weekly Dose: 34mg Continue current plan. Follow up in 3 weeks. Seen by Mili Guzman RN [employer] Other 11-29-2021 Evaluation note* Encounter Date Diagnosis Assessment Notes Treatment Notes Treatment Clinical Notes Apr, Medication monitoring encounter (ICD-10 - Z51.81) Referring Provider: Fletcher Ziegler Diagnosis: Atrial Fibrillation INR Goal: 2-3 INR: 1.5 Tablet Size: 2mg Thursday: 6mg Thursday: 4mg Thursday: 6mg Thursday: 4mg : 6mg Thursday: 4mg Thursday: 4mg Total Weekly Dose: 34mg Boost additional 2.5mg x2 days then continue current plan. INR is low due to missing ac couple of doses. Follow up in 2 weeks. Seen by Mili Guzman RN [employer] Other 10-28-2021 Evaluation note* Encounter Date Diagnosis Assessment Notes Treatment Notes Treatment Clinical Notes Mar, Medication monitoring encounter (ICD-10 - Z51.81) Referring Provider: Fletcher Ziegler Diagnosis: Atrial Fibrillation INR Goal: 2-3 INR: 2.3 Tablet Size: 2mg Thursday: 6mg Thursday: 4mg Thursday: 6mg Thursday: 4mg : 6mg Thursday: 4mg Thursday: 4mg Total Weekly Dose: 34mg Continue current plan. Follow up in 4 weeks. Seen by Dusty Lucero PharmD [employer] Other 09-30-2021 Evaluation note* Encounter Date Diagnosis Assessment Notes Treatment Notes Treatment Clinical Notes Feb, Medication monitoring encounter (ICD-10 - Z51.81) Referring Provider: Fletcher Ziegler Diagnosis: Atrial Fibrillation INR Goal: 2-3 INR: 2.3 Tablet Size: 2mg Thursday: 6mg Thursday: 4mg Thursday: 6mg Thursday: 4mg : 6mg Thursday: 4mg Thursday: 4mg Total Weekly Dose: 34mg Continue current plan. Follow up in 4 weeks. Seen by Dusty Lucero PharmD [employer] Other 01-01-2019 History general Narrative - Reported* Type Description Date Surgical History quad bypass Hospitalization History see above Hospitalization History anemia 06/08/2018 [employer] Other Evaluation noteNo InformationNort Stop Being Watched Other Evaluation note* Diagnosis Coronary artery disease 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- Primary 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 History of PTCA Postsurgical percutaneous transluminal coronary angioplasty status Permanent atrial fibrillation (CMS/HCC) Atrial fibrillation High risk medication use Murmur, heart Undiagnosed cardiac murmurs documented in this encounter [facility] Work Phone: Evaluation noteNo assessment information available [facility] Work Phone: Evaluation note* Diagnosis Murmur, heart Undiagnosed cardiac murmurs documented in this encounter [facility] Work Phone: Evaluation note* Diagnosis Onset Date Resolution Status Bilateral impacted cerumen a cute Bronchitis acute [facility] Work Phone: evaluation note* Diagnosis Onset Date Resolution Status Bilateral impacted cerumen a cute Bronchitis acute Atrial fibrillation chronic Atrial fibrillation chronic [facility] Work Phone: Evaluation note* Diagnosis Onset Date Resolution Status Atrial fibrillation chronic Atrial fibrillation chronic Atrial fibrillation chronic [facility] Work Phone: evaluation note* Diagnosis Onset Date Resolution Status Atrial fibrillation chronic Atrial fibrillation chronic Atrial fibrillation chronic Atrial fibrillation chronic Atrial fibrillation chronic [facility] Work Phone: Evaluation note* Diagnosis Onset Date Resolution Status Atrial fibrillation chronic Atrial fibrillation chronic Atrial fibrillation chronic Atrial fibrillation chronic Atrial fibrillation chronic Acute encephalopathy acute Altered mental status acute [facility] Work Phone: Evaluation note* Diagnosis Onset Date Resolution Status Atrial fibrillation chronic Atrial fibrillation chronic Atrial fibrillation chronic Atrial fibrillation chronic Atrial fibrillation chronic Acute encephalopathy acute Altered mental status acute B12 deficiency acute Hallucinations acute Hypertensive urgency acute Old cerebrovascular accident (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 acute Atrial fibrillation chronic [facility] Work Phone: Evaluation note* Diagnosis Onset Date Resolution Status Atrial fibrillation chronic Atrial fibrillation chronic Atrial fibrillation chronic Acute encephalopathy acute B12 deficiency acute Hypertensive urgency acute Old cerebrovascular accident (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 acute Atrial fibrillation chronic Atrial fibrillation chronic [facility] Work Phone: Evaluation note* Diagnosis Longstanding persistent atrial fibrillation (CMS/HCC) documented in this encounter [facility]* Diagnosis 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 History of ischemic stroke documented in this encounter [facility]* Diagnosis Longstanding persistent atrial fibrillation (CMS/HCC)- Primary 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) 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 Moderate late onset 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 disturbance, psychotic disturbance, mood disturbance, or anxiety (CMS/HCC) LVH (left ventricular hypertrophy) Cardiomegaly Localized edema Edema documented [facility]* Diagnosis LVH (left ventricular hypertrophy)- Primary Cardiomegaly Longstanding persistent atrial fibrillation (CMS/HCC) Localized edema Edema documented [facility]* Diagnosis Orthostatic hypotension- Primary Longstanding persistent atrial fibrillation (CMS/HCC) documented [facility]* Diagnosis Longstanding persistent atrial fibrillation (CMS/HCC) [facility]* Diagnosis Cerumen debris on tympanic membrane of both ears- Primary Weakness Other malaise and fatigue Other fatigue Acute non-recurrent pansinusitis Longstanding persistent atrial fibrillation (CMS/HCC) Dementia in other diseases classified elsewhere, moderate, without behavioral disturbance, psychotic disturbance, mood disturbance, and anxiety (CMS/HCC) Unspecified atrial fibrillation (CMS/HCC) Dementia in other diseases classified elsewhere, severe, with agitation (CMS/HCC) Alzheimer's disease with late onset (CODE) (CMS/HCC) documented in this encounter [facility]* Diagnosis Acute non-recurrent pansinusitis- Primary Longstanding persistent atrial fibrillation (CMS/HCC) Dementia in other diseases classified elsewhere, severe, with agitation (CMS/HCC) Alzheimer's disease with late onset (CODE) (CMS/HCC) Orthostatic hypotension documented in this encounter [facility]* Diagnosis Longstanding persistent atrial fibrillation (CMS/HCC)- Primary Anticoagulant long-term use Encounter for long-term (current) use of anticoagulants documented in this encounter [facility]* Diagnosis Routine general medical examination at health care facility- Primary Routine general medical examination at a health care facility ACP (advance care planning) Other specified counseling Longstanding persistent atrial fibrillation (CMS/HCC) documented [facility]* Diagnosis Alzheimer's disease with late onset (CODE) (CMS/HCC)- Primary Longstanding persistent atrial fibrillation (CMS/HCC) documented in this encounter [facility]* Diagnosis 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 In the interim he is done well. He has none of the symptoms of coronary disease that preceded his original diagnosis and subsequent bypass surgery in [place]. He also had angioplasty several years after and since that time he is done well. He apparently quit smoking at that time this is probably the reason he is done so well. Treatment of his chronic atrial fibrillation was discussed and he is doing well with warfarin therapy. He is lost a little bit of weight he is congratulated in this regard and the merits of further diet exercise and weight loss were discussed and advocated. Because of all the above we otherwise believe he is doing well we suggest follow-up in a year.-[facility] DO Work Phone: Hospital Discharge instructions Additional Instructions I may not have addressed or treated all of your medical illnesses or the abnormal blood work or imaging studies during this hospitalization. Please ask your primary care provider to obtain [facility] records entirely to follow up on all of the abnormal physical, laboratory, and imaging findings that I have not addressed. Discharging you from [facility] does not mean that your medical care ends here and now. You may still need additional monitoring, work up, investigation, and treatment plan to be handled from this point on by out patient providers including your primary care provider and specialists. For any medication question, please contact your retail pharmacist or your primary care provider. Thank you.] SNF TO MANAGE: PT/OT to eval and treat Monitor VS per protocol--HTN Monitor Neuro. assessment--Encephalopathy, Hallucinations Monitor Cardiac assessment--Atrial fib Please attempt to normalize sleep wake cycle Please follow speech therapy recommendations as listed in patients discharge packet Maintain high risk fall precautions Care to be managed by SNF providers For [facility] providers: Recommend PT/INR every Thursday and OR every Thursday and Thursday OR every Thursday and Thursday. Please return back to the emergency room or seek medical attention if your symptoms worsen or return. Titrate Coumadin dose to keep INR between 2 and 3 Recommend CBC and BMP weekly at the nursing facility.[facility] Work Phone: Hospital Discharge instructions Additional Instructions If your symptoms return/worsen or you develop any further concerns or symptoms please see your doctor or return to the emergency department immediately. It is imperative that you go over today's visit and all results with your primary care provider.[facility] Work Phone: Progress note Author Nadiya Hagan [facility] December 23, 2023 8:49am Note Date/Time December 23, 2023 8:49 am [facility] [address] [place] [address] Hospitalist Progress Note Signed Patient: Emigdio Jeong III MR#: [id number] : 1940 Acct:[id number] Age/Sex: 83 / M Adm Date: 4 Loc: 3T Room: [address] [place] [address] Type: ADM IN Attending Dr: Nadiya Hagan MD Copies to: ~ Date of Service: 12/23/2023 Subjective Subjective Narrative: Uneventful night. Resolution of his confusion. No chest or abdominal pain. Nofocal weakness or numbness. Patient walks around in his room without any difficulties. Exam Physical Exam Vital Signs: Temp Pulse Resp BP Pulse Ox O2 Del Method 98.4 F 98 18 138/96 95 Room Air 12/23/23 08:15 12/23/23 08:15 12/23/23 08:15 12/23/23 08:15 12/23/23 08:15 12/23/23 08:15 Narrative: [pt is awake and alert. oriented to place, time and person HEENT: [place] conjunctiva and NL buccal mucosa Neck: Supple, no tenderness Endocrine: No Thyromegaly. Vascular: No JVD or carotid bruit. Lymphatic: No cervical lymphadenopathy. Chest: CTA no DTP. Heart IRRR, no extra sound or murmur. Abd: Soft, no tenderness, no rebound and no rigidity. Increase abd girth therefore clinically I could not exclude the possibility of intra abd mass or organomegaly. LE: No cyanosis or clubbing, no varices or edema. Neuro: Awake, alert to self and his family. Disoriented to date, month, year. Loss of insight. Normal and fluent speech. Normal and symmetrical motor and tone examination throughout. []] Objective Lab Results 12/18/23 14:24 12/18/23 14:24 Meds Allergies and Active Meds Allergies No Known Allergies Allergy (Verified 12/17/23 10:39) Active Meds: Active Medications Generic Name Dose Route Start Last Admin Trade Name Durgaq PRN Reason Stop Dose Admin Acetaminophen 650 mg 12/17/23 14:35 12/21/23 05:32 Acetaminophen 325 Mg Tablet PO 12/16/24 14:34 650 mg Q6HR PRN Administration Pain Scale 1 - 3 or fever Aspirin 81 mg 12/21/23 13:00 12/23/23 08:21 Aspirin 81 Mg Tablet. PO 12/20/24 12:59 81 mg DAILY CASTILLO Administration Cyanocobalamin 1,000 mcg 12/19/23 09:00 12/21/23 10:13 Cyanocobalamin 1,000 Mcg Tablet PO 12/18/24 08:59 1,000 mcg QAM CASTILLO Administration Cyanocobalamin 1,000 mcg 12/21/23 13:15 12/23/23 08:21 Cyanocobalamin 1,000 Mcg/Ml Vial IM 12/23/23 09:01 1,000 mcg DAILY CASTILLO Administration Haloperidol 1 mg 12/18/23 18:02 12/19/23 20:20 Haloperidol 1 Mg Tablet PO 12/17/24 20:59 1 mg QPM PRN Administration sleeplessness Haloperidol Lactate 0.5 mg 12/18/23 18:02 12/21/23 21:08 Haloperidol Lactate 5 Mg/Ml Vial IV-PUSH 0.5 mg Q1H PRN Administration Agitation Labetalol HCl 10 mg 12/18/23 20:54 12/21/23 23:59 Labetalol 100 Mg/20 Ml Vial IV-PUSH 12/17/24 20:53 10 mg Q4H PRN Administration Hypertension Losartan Potassium 50 mg 12/22/23 09:00 12/23/23 08:21 Losartan 50 Mg Tablet PO 12/21/24 08:59 50 mg DAILY CASTILLO Administration Sodium Chloride 0 ml 12/17/23 10:39 12/20/23 17:30 Sodium Chloride 0.9 % 10 Ml Syringe IV-PUSH 12/16/24 10:38 10 ml PRN PRN Administration Flush Warfarin Sodium 1 each 12/17/23 16:34 Warfarin - Pharmacy Dosing MISCELLANE 12/16/24 16:33 PRN PRN LEONID.Pharmacy Consult Protocol A&P - Hospitalist Assessment/Plan (1) Acute encephalopathy: (2) Hallucinations: (3) Atrial fibrillation: (4) Hypertensive urgency: (5) Old cerebrovascular accident (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: (6) B12 deficiency: Plan 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 Chronic A-fib No significant carotid stenosis Echocardiogram showed normal EF. No thrombus. Hypertension, good control. B12 deficiency on B12 supplementation. No acute symptoms. Patient was discharged pending transportation to [facility] today. 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 Murmur, heart Procedures Follow Up In Cardiology Fletcher Ziegler MD [address] [place] [address] [address], [address] [address] Fletcher Ziegler MD [address] [place] [address] 2, [address] [address] Referral ID Status Reason Start Date Expiration Date V isits Requested Visits Authorized Authorized 06/19/2023 06/18/2024 1 1 * CV Imaging (Routine) - Pending Review Specialty Diagnoses / Procedures Referred By Contac t Referred To Contact Cardiology Diagnoses Murmur, heart Procedures Transthoracic Echo (TTE) Complete ID ECHO TTHRC R-T 2D W/WOM-MODE COMPL SPEC&COLR D Fletcher Ziegler MD [address] [facility] [place] [address], [address] [address] Referral ID Status Reason Start Date Expiration Date Visits Requested Visits Authorized Pending Review Perform Procedure 06/19/2023 06/18/[address] [facility] Work Phone: Summary Purpose Family History Unknown Family Member Name Dates Details Family history of malignant neoplasm of breast: Sister(V16.3, Z80.3) Status:Active Heart problem: Mother, Fathe r Status:Active Family history of hypertensi on: Father(V17.49, Z82.49) Status:Active Unknown Family Member Name Dates Details Family history of hypertensi on: Father(V17.49, Z82.49) Status:Active Heart problem: Mother, Fathe r Status:Active Family history of malignant neoplasm of breast: Sister(V16.3, Z80.3) Status:Active Relationship Condition Age at Onset Recorded Date/T gustavo brother Unknown father Unknown Not Specified Unknown Relationship Condition Age at Onset Recorded Date/T gustavo brother Unknown father Unknown mother Unknown Advance Directives Advance Directive Response Recorded Date/ Time Advance Directives No May 1:13pm Advance Directive Response Recorded Date/ Time Advance Directives No May 2:13pm Documents on File Type Date Recorded Patient Parts Specialist Expl anation Power of Board Design Engineer 02/24/2024 1:45 PM [facility] POWER OF PARTS COUNTER SALES PERSON Chief Complaint EMIGDIO JEONG is being seen for a 9 month follow-up of. Chief Complaint and Reason for Visit Chief Complaint afib Chief Complaint afib Chest congestion Reason for Visit Bilateral impacted c erumen Bronchitis Chief Complaint Chest congestion INR f/u Reason for Visit Bilateral impacted c erumen Bronchitis Atrial fibrillation Atrial fibrillation Chief Complaint INR f/u Reason for Visit Atrial fibrillation Atrial fibrillation Atrial fibrillation Chief Complaint Elevated INR in ER * See WL Message INR f/u Reason for Visit Atrial fibrillation Atrial fibrillation Atrial fibrillation Atrial fibrillation Atrial fibrillation Chief Complaint Elevated INR in ER * See WL Message INR f/u confusion Reason for Visit Atrial fibrillation Atrial fibrillation Atrial fibrillation Atrial fibrillation Atrial fibrillation Acute encephalopathy Altered mental status Chief Complaint Elevated INR in ER * See WL Message INR f/u confusion Reason for Visit Atrial fibrillation Atrial fibrillation Atrial fibrillation Atrial fibrillation Atrial fibrillation Acute encephalopathy Altered mental status B12 deficiency Hallucinations Hypertensive urgency Old cerebrovascular accident (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 Atrial fibrillation Chief Complaint Elevated INR in ER * See WL Message INR f/u confusion Reason for Visit Atrial fibrillation Atrial fibrillation Atrial fibrillation Acute encephalopathy B12 deficiency Hypertensive urgency Old cerebrovascular accident (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 Atrial fibrillation Atrial fibrillation Chief Complaint Admit Date fallNovember 02, 2024 6:08p m Reason for Referral Specialty Diagnoses / Procedures Referred By Carline paiz Referred To Contact Cardiology Diagnoses Murmur, heart Procedures Transthoracic Echo (TTE) Complete ID ECHO TTHRC R-T 2D W/WOM-MODE COMPL SPEC&COLR D Fletcher Ziegler MD [address] [facility] 2, [address] [address] Referral ID Status Reason Start Date Expiration Date Visits Requested Visits Authorized Authorized Perform Procedure 06/19/2023 06/18/2024 1 1 Additional Source Comments (unrecognized sect ion and content) No Status Records FoundNo Status Records FoundNo Status Records FoundNo Status Records FoundNo Status Records FoundNo Status Records FoundNo Status Records FoundNo Status Records FoundNo Status Records FoundNo Status Records FoundNo Status Records Found INFORMATION SOURCE (unrecogn ized section and content) DATE CREATED AUTHOR 02/05/2018 [facility] DATE CREATED AUTHOR AUTHOR'S ORGANIZ ATION 05/27/2019 [facility] DATE CREATED AUTHOR AUTHOR'S ORGANIZ ATION 04/07/2022 [facility] DATE CREATED AUTHOR AUTHOR'S ORGANIZ ATION 04/08/2022 [employer] DATE CREATED AUTHOR AUTHOR'S ORGANIZ ATION 10/11/[address] [facility] DATE CREATED AUTHOR AUTHOR'S ORGANIZ ATION 07/28/2023 [facility] DATE CREATED AUTHOR AUTHOR'S ORGANIZ ATION 02/13/2024 [facility] DATE CREATED AUTHOR AUTHOR'S ORGANIZ ATION 04/12/2024 [facility] DATE CREATED AUTHOR AUTHOR'S ORGANIZ ATION 06/25/2024 [facility] DATE CREATED AUTHOR AUTHOR'S ORGANIZ ATION 10/13/2024 [facility] EPIC DATE CREATED AUTHOR AUTHOR'S ORGANIZ ATION 11/12/2024 [facility] REASON FOR VISIT (unrecogniz ed section and content) Reason Comments Annual Exam Specialty Diagnoses / Procedures Referred By Carline paiz Referred To Contact Cardiology Diagnoses Murmur, heart Procedures Transthoracic Echo (TTE) Complete ID ECHO TTHRC R-T 2D W/WOM-MODE COMPL SPEC&COLR D Fletcher Ziegler MD [address] [facility] 2, [address] [address] Referral ID Status Reason Start Date Expiration Date Visits Requested Visits Authorized [id number] Authorized Perform Procedure 06/19/2023 06/18/2024 1 1 Reason Comments INR VISIT Coumadin 9mg sun 6mg all other days Reason Comments Establish Care Previous PCP Dr Dudley Willoughby at [facility] cardiology [facility] neurology [place] INR VISIT Coumadin 4mg Mon 6mg all other days Reason Comments Coagulation Disorder Coumadin 4mg Thursday , 6mg all other days Reason Comments INR VISIT Coumadin 6mg everyda y EXCEPT Thursday 4mg Results Lab results Foot Pain Reason Comments INR VISIT Coumadin 6mg Qd Reason Comments INR VISIT Coumadin 4mg Tu/Fr i 6mg all other days orthostatic hypotension Reason Comments Medicare Annual Wellness Visit Subsequen t INR VISIT Coumadin 4mg tu/Fr i 6mg all other days Reason Comments INR VISIT Coumadin 4mg // 6 mg all other days Reason Comments Atrial Fibrillation Coumadin 6mg // T 4mg all other days Care Teams (unrecognized sec tion and content) Semiconductor Manufacturing Technician Relationship Specialty Start Date End Date Rich Emigdio AbrahamDO [address] [place] [id number] PCP - General 11/24/18 Team Status: Inactive Member Role Status Dates Emigdio Villanueva DO Primary Care Provider Active Start: June 17, 2023 End: June 17, 2023 Fletcher Ziegler MD Attending Provider Active Start: June 17, 2023 End: June 17, 2023 Semiconductor Manufacturing Technician Relationship Specialty Start Date End Date Generic Provider, No Assigned [place]cp[facility] [address] [place] [address] PCP - General 07/09/23 Team Status: Active Member Role Status Dates PHYSICIAN NO FAMILY Primary Care Provider Active Team Status: Inactive Member Role Status Dates AMPARO Moreno Attending Provider Active S tart: July 29, 2023 End: July 29, 2023 PHYSICIAN NO FAMILY Primary Care Provider Active Start: July 29, 2023 End: July 29, 2023 Team Status: Active Member Role Status Dates Emigdio Villanueva DO Primary Care Provider Active Team Status: Inactive Member Role Status Dates Yelena Puri RPH Active Start: 2023 End: August 04, 2023 Emigdio Villanueva DO Primary Care Provider Active Start: August 04, 2023 End: August 04, 2023 Fletcher Ziegler MD Referring Provider Active Start: August 04, 2023 End: August 04, [address] PharmD Attending Provider Active Start: August 04, 2023 End: August 04, 2023 Team Status: Inactive Member Role Status Dates Emigdio Villanueva DO Primary Care Provider Active Start: October 05, 2023 End: October 05, 2023 Fletcher Ziegler MD Referring Provider Active Start: October 05, 2023 End: October 05, 2023 Rosalia Peres RPH Attending Provider Active Start: October 05, 2023 End: October 05, 2023 Team Status: Inactive Member Role Status Dates Emigdio Villanueva DO Primary Care Provider Active Start: October 26, 2023 End: October 26, 2023 Fletcher Ziegler MD Referring Provider Active Start: October 26, 2023 End: October 26, [address] PharmD Attending Provider Active Start: October 26, 2023 End: October 26, 2023 Team Status: Inactive Member Role Status Dates Emigdio Villanueva DO Primary Care Provider Active Start: November 24, 2023 End: November 24, 2023 Rosalia Peres RPH Attending Provider Active Start: November 24, 2023 End: November 24, 2023 Fletcher Ziegler MD Referring Provider Active Start: November 24, 2023 End: November 24, 2023 Team Status: Inactive Member Role Status Dates Emigdio Villanueva DO Primary Care Provider Active Start: December 07, 2023 End: December 07, 2023 Fletcher Ziegler MD Referring Provider Active Start: December 07, 2023 End: December 07, 2023 Rosalia Peres RPH Attending Provider Active Start: December 07, 2023 End: December 07, 2023 Team Status: Inactive Member Role Status Dates Emigdio Villanueva DO Primary Care Provider Active Start: December 14, 2023 End: December 14, 2023 Yelena Puri RPH Active Start: December 14, 2023 End: December 14, 2023 Fletcher Ziegler MD Referring Provider Active Start: December 14, 2023 End: December 14, [address] PharmD Attending Provider Active Start: December 14, 2023 End: December 14, 2023 Team Status: Active Member Role Status Dates Emigdio Villanueva DO Primary Care Provider Active Start: December 17, 2023 Malik Perez DO Emergency Provider Active Start: December 17, 2023 Clement Monzon DO RES Active Start: December 17, 2023 Marino Acuña MD Admit Provider, A ttending Provider Active Start: December 17, 2023 Felipe Lopez DO Other Provider Active Start: December 17, 2023 Team Status: Inactive Member Role Status Dates Emigdio Villanueva DO Primary Care Provider Active Start: December 17, 2023 End: December 23, 2023 Malik Perez DO Emergency Provider Active Start: December 17, 2023 End: December 23, 2023 Clement Monzon DO RES Active Start: December 17, 2023 End: December 23, 2023 Marino Acuña MD Admit Provider Active Sta rt: December 17, 2023 End: December 23, 2023 Felipe Lopez DO Other Provider Active Start: December 17, 2023 End: December 23, 2023 Nadiya Hagan MD Attending Provider Active Sta rt: December 17, 2023 End: December 23, 2023 Team Status: Active Member Role Status Dates Emigdio Villanueva DO Primary Care Provider Active Start: December 06, 2023 Saúl Perdomo DO Attending Provider Active Sta rt: December 06, 2023 Team Status: Inactive Member Role Status Dates Emigdio Villanueva DO Primary Care Provider Active Start: February 10, 2024 End: February 10, 2024 Fletcher Ziegler MD Referring Provider Active Start: February 10, 2024 End: February 10, [address] PharmD Attending Provider Active Start: February 10, 2024 End: February 10, 2024 Semiconductor Manufacturing Technician Relationship Specialty Start Date End Date Emigdio Villanueva MD [address] [place] [address] PCP - General Family Medicine 12/28/23 Semiconductor Manufacturing Technician Relationship Specialty Start Date End Date Emigdio Villanueva MD [address] [place] [facility] [place] [address] PCP - General Family Medicine 12/28/23 Semiconductor Manufacturing Technician Relationship Specialty Start Date End Date Emigdio Villanueva MD [address] [place] [facility] [place] [address] PCP - General Family Medicine 12/28/23 Semiconductor Manufacturing Technician Relationship Specialty Start Date End Date Emigdio Villanueva MD [address] [place] [facility] [place] [address] PCP - General Family Medicine 12/28/23 Semiconductor Manufacturing Technician Relationship Specialty Start Date End Date Emigdio Villanueva MD [address] [place] [facility] [place] [address] PCP - General Family Medicine 12/28/23 Semiconductor Manufacturing Technician Relationship Specialty Start Date End Date Emigdio Villanueva MD [address] [place] [facility] [place] [address] PCP - General Family Medicine 12/28/23 Semiconductor Manufacturing Technician Relationship Specialty Start Date End Date Emigdio Villanueva MD [address] [place] [facility] [place] [address] PCP - General Family Medicine 12/28/23 Semiconductor Manufacturing Technician Relationship Specialty Start Date End Date Emigdio Villanueva MD [address] [place] [facility] [place] [address] PCP - General Family Medicine 12/28/23 Semiconductor Manufacturing Technician Relationship Specialty Start Date End Date Tyson Bhatti MD [address] [place] [address] PCP - General Internal Medicine 06/03/24 Semiconductor Manufacturing Technician Relationship Specialty Start Date End Date Tyson Bhatti MD [address] [place] [address] PCP - General Internal Medicine 06/03/24 Semiconductor Manufacturing Technician Relationship Specialty Start Date End Date Tyson Bhatti MD [address] [place] [address] PCP - General Internal Medicine 06/03/24 Semiconductor Manufacturing Technician Relationship Specialty Start Date End Date Tyson Bhatti MD [address] [place] [address] PCP - General Internal Medicine 06/03/24 Semiconductor Manufacturing Technician Relationship Specialty Start Date End Date Tyson Bhatti MD [address] [place] [address] PCP - General Internal Medicine 06/03/24 Semiconductor Manufacturing Technician Relationship Specialty Start Date End Date Tyson Bhatti MD [address] [place] [address] PCP - General Internal Medicine 06/03/24 Semiconductor Manufacturing Technician Relationship Specialty Start Date End Date Tyson Bhatti MD [address] [place] [address] PCP - General Internal Medicine 06/03/24 Semiconductor Manufacturing Technician Relationship Specialty Start Date End Date Tyson Bhatti MD [address] [place] [address] PCP - General Internal Medicine 06/03/24 Semiconductor Manufacturing Technician Relationship Specialty Start Date End Date Tyson Bhatti MD [address] [facility] [address] [place] [address] PCP - General Internal Medicine 06/03/24 Semiconductor Manufacturing Technician Relationship Specialty Start Date End Date Tyson Bhatti MD [address] [facility] [address] [place] [address] PCP - General Internal Medicine 06/03/24 Kacy Pretty DO [address] [place] [address] Referring Physician Neurology 10/03/24 Semiconductor Manufacturing Technician Relationship Specialty Start Date End Date Tyson Bhatti MD [address] [facility] [address] [place] [address] PCP - General Internal Medicine 06/03/24 Kacy Pretty DO [address] [place] [address] Referring Physician Neurology 10/03/24 Semiconductor Manufacturing Technician Relationship Specialty Start Date End Date Tyson Bhatti MD [address] [facility] [address] [place] [address] PCP - General Internal Medicine 06/03/24 Kacy Pretty DO [address] [place] [address] Referring Physician Neurology 10/03/24 Team Status: Active Member Role Status Dates Tyson Bhatti II MD Primary Care Provider Active Team Status: Inactive Member Role Status Dates Josue Leigh DO Emergency Provider Active Start: November 02, 2024 End: November 02, 2024 Tyson Bhatti II MD Primary Care Provider Active Start: November 02, 2024 End: November 02, 2024 Semiconductor Manufacturing Technician Relationship Specialty Start Date End Date Tyson Bhatti MD [address] [facility] [address] [place] [address] PCP - General Internal Medicine 06/03/24 Kacy Pretty DO [address] [facility] [address] [place] [address] Referring Physician Neurology 10/03/24 Team Status: Inactive Member Role Status Dates Tyson Bhatti II MD Primary Care Provider Active Start: November 10, 2024 End: November 10, 2024 Isabelle Rucker NP-C Attending Provider Active St art: November 10, 2024 End: November 10, 2024 Goals (unrecognized section and content) Goals may be documented in a n alternate section FOR RECORDS PERTAINING TO PATIENTS WHO ARE OR HAVE BEEN ENROLLED IN A CHEMICAL DEPENDENCY/SUBSTANCEABUSE PROGRAM, SOME INFORMATION MAY BE OMITTED. This clinical summary was aggregated from multiple sources. Caution should be exercised in using it in the provision of clinical care. This summary normalizes information from multiple sources, and as a consequence, information in this document may materially change the coding, format and clinical context of patient data. In addition, data may be omitted in some cases. CLINICAL DECISIONS SHOULD BE BASED ON THE PRIMARY CLINICAL RECORDS. [facility]. provides no warranty or guarantee of the accuracy or completeness of information in this document.
--- NOTE | 2024-11-14 07:47 | ECG_ITS ---
The [facility] Test Date: 2024-11-14 Pat Name: LACY GORDILLO Department: Room: - Gender: Male Pattern Ruler: : 1940 Requested By: Order Number: [id number] Reading MD: DOMINGO HERNANDEZ M.D. Measurements Intervals [place] Rate: 74 P: -27645 UT: -57583 QRS: 41 QRSD: 100 T: 26 QT: 386 QTc: 413 Interpretive Statements 1210 Atrial fibrillation 2440 Incomplete right bundle branch block 3234 Anteroseptal myocardial infarction, age undetermined [address] depression, probably digitalis effect 9150 abnormal ECG Compared to ECG 12/05/2023 19:15:23 ST (T wave) deviation now present Myocardial infarct finding still present Electronically Signed On 11-14-2024 21:47:10 EDT by DOMINGO HERNANDEZ M.D.
--- NOTE | 2024-11-14 07:47 | CT_ITS ---
The [address] [address] Patient Name: LACY GORDILLO MRN: [id number] date: 1940 Sex: M Assigned Patient Location: ED.MAIN Current Patient Location: ED.MAIN Accession/Order Number: [id number] Exam Date: 11/14/2024 09:09 Report Date: 11/14/2024 09:13 At the request of: SANTANA SCOTT MD Procedure: CT head/brain wo con CT BRAIN WITHOUT CONTRAST: CLINICAL HISTORY: Patient fell a week ago. Blood thinners. COMPARISON: 12/05/2023 TECHNIQUE: Contiguous axial unenhanced images were obtained through the brain. This CT exam was performed using one or more following dose reduction techniques: Automated exposure control, adjustment of the mA and/or kV according to patient size, or use of iterative reconstruction technique. FINDINGS: There is generalized atrophy. The ventricles are stable in size and position. Microvascular changes are again noted. There are no additional areas of abnormal attenuation. There is no hemorrhage, mass effect or extra-axial collections. The calvarium is intact. The imaged paranasal sinuses and mastoid air cells are clear. There is vertebral, middle cerebral and carotid siphon plaque. CT/CT head/brain wo con IMPRESSION: ATROPHY AND SMALL VESSEL ISCHEMIC CHANGES. NO ACUTE INTRACRANIAL TRAUMA. Impression dictated by: Kusum Hall M.D. 11/14/2024 9:13 AM Dictation Location: [place] [address] Electronically authenticated by: [id number] Y Date: 11/14/2024 09:13
--- NOTE | 2024-11-14 07:47 | XR_ITS ---
The [address] [address] Patient Name: LACY GORDILLO MRN: [id number] date: 1940 Sex: M Assigned Patient Location: ED.MAIN Current Patient Location: ED.MAIN Accession/Order Number: [id number] Exam Date: 11/14/2024 08:59 Report Date: 11/14/2024 09:09 At the request of: SANTANA SCOTT MD Procedure: XR ankle LT min 3V CLINICAL DATA: Patient fell a week ago. Continued pain and swelling at the left knee as well as pain at the lower leg and ankle. LEFT KNEE -3 views COMPARISON: None AP, lateral and internal oblique views were obtained. There is an intramedullary lisha at the imaged tibia with 2 proximal interlocking screws. There is no acute fracture or dislocation. There is minimal medial tibiofemoral joint compartment narrowing. There is minor marginal spurring at all 3 compartments. There are enthesophytes at the insertion of the quadriceps tendon as well as the origin and insertion of the patellar tendon. There is no significant knee effusion. There is infrapatellar soft tissue swelling. Bursitis is a possibility. Atherosclerotic plaque is seen. XR/XR knee LT 3V IMPRESSION: POSTOPERATIVE AND DEGENERATIVE CHANGES. NO ACUTE BONY INJURY. INFRAPATELLAR SOFT TISSUE SWELLING. BURSITIS IS IN THE DIFFERENTIAL. LEFT ANKLE - 3 views COMPARISON: None AP, lateral and oblique views were obtained. The distal aspect of the tibial lisha is seen. There is old fracture deformity at the shafts of the distal tibia and fibula extending to the lateral malleolus. There is no obvious acute fracture or dislocation. Calcaneal spurs are visualized. No significant soft tissue swelling is seen. IMPRESSION: POSTOPERATIVE AND CHRONIC POSTTRAUMATIC CHANGES. NO DEFINITE ACUTE BONY INJURY. LEFT TIB-FIB - 2 views COMPARISON: None AP and lateral views of the left tibia and fibula were obtained. There is old fracture deformity at the distal tibia and fibular shafts. There is a tibial intramedullary lisha with 2 proximal interlocking screws. No acute fracture or dislocation is noted. There is minor subcutaneous edema. Atherosclerotic plaque is visualized. There are hemostasis clips at the medial upper calf. IMPRESSION: OLD FRACTURES AND POSTOPERATIVE CHANGES. NO ACUTE BONY FINDINGS. Impression dictated by: Kusum Hall M.D. 11/14/2024 9:09 AM Dictation Location: [place] [address] Electronically authenticated by: [id number] Y Date: 11/14/2024 09:09
--- NOTE | 2024-11-14 07:47 | XR_ITS ---
The [address] [address] Patient Name: LACY GORDILLO MRN: [id number] date: 1940 Sex: M Assigned Patient Location: ED.MAIN Current Patient Location: ED.MAIN Accession/Order Number: [id number] Exam Date: 11/14/2024 08:59 Report Date: 11/14/2024 09:09 At the request of: SANTANA SCOTT MD Procedure: XR ankle LT min 3V CLINICAL DATA: Patient fell a week ago. Continued pain and swelling at the left knee as well as pain at the lower leg and ankle. LEFT KNEE -3 views COMPARISON: None AP, lateral and internal oblique views were obtained. There is an intramedullary lisha at the imaged tibia with 2 proximal interlocking screws. There is no acute fracture or dislocation. There is minimal medial tibiofemoral joint compartment narrowing. There is minor marginal spurring at all 3 compartments. There are enthesophytes at the insertion of the quadriceps tendon as well as the origin and insertion of the patellar tendon. There is no significant knee effusion. There is infrapatellar soft tissue swelling. Bursitis is a possibility. Atherosclerotic plaque is seen. XR/XR ankle LT min 3V IMPRESSION: POSTOPERATIVE AND DEGENERATIVE CHANGES. NO ACUTE BONY INJURY. INFRAPATELLAR SOFT TISSUE SWELLING. BURSITIS IS IN THE DIFFERENTIAL. LEFT ANKLE - 3 views COMPARISON: None AP, lateral and oblique views were obtained. The distal aspect of the tibial lisha is seen. There is old fracture deformity at the shafts of the distal tibia and fibula extending to the lateral malleolus. There is no obvious acute fracture or dislocation. Calcaneal spurs are visualized. No significant soft tissue swelling is seen. IMPRESSION: POSTOPERATIVE AND CHRONIC POSTTRAUMATIC CHANGES. NO DEFINITE ACUTE BONY INJURY. LEFT TIB-FIB - 2 views COMPARISON: None AP and lateral views of the left tibia and fibula were obtained. There is old fracture deformity at the distal tibia and fibular shafts. There is a tibial intramedullary lisha with 2 proximal interlocking screws. No acute fracture or dislocation is noted. There is minor subcutaneous edema. Atherosclerotic plaque is visualized. There are hemostasis clips at the medial upper calf. IMPRESSION: OLD FRACTURES AND POSTOPERATIVE CHANGES. NO ACUTE BONY FINDINGS. Impression dictated by: Kusum Hall M.D. 11/14/2024 9:09 AM Dictation Location: [place] [address] Electronically authenticated by: [id number] Y Date: 11/14/2024 09:09
--- NOTE | 2024-11-14 07:52 | XR_ITS ---
The [address] [address] Patient Name: LACY GORDILLO MRN: [id number] date: 1940 Sex: M Assigned Patient Location: ED.MAIN Current Patient Location: ED.MAIN Accession/Order Number: [id number] Exam Date: 11/14/2024 08:59 Report Date: 11/14/2024 09:09 At the request of: SANTANA SCOTT MD Procedure: XR ankle LT min 3V CLINICAL DATA: Patient fell a week ago. Continued pain and swelling at the left knee as well as pain at the lower leg and ankle. LEFT KNEE -3 views COMPARISON: None AP, lateral and internal oblique views were obtained. There is an intramedullary lisha at the imaged tibia with 2 proximal interlocking screws. There is no acute fracture or dislocation. There is minimal medial tibiofemoral joint compartment narrowing. There is minor marginal spurring at all 3 compartments. There are enthesophytes at the insertion of the quadriceps tendon as well as the origin and insertion of the patellar tendon. There is no significant knee effusion. There is infrapatellar soft tissue swelling. Bursitis is a possibility. Atherosclerotic plaque is seen. XR/XR tibia fibula LT 2V IMPRESSION: POSTOPERATIVE AND DEGENERATIVE CHANGES. NO ACUTE BONY INJURY. INFRAPATELLAR SOFT TISSUE SWELLING. BURSITIS IS IN THE DIFFERENTIAL. LEFT ANKLE - 3 views COMPARISON: None AP, lateral and oblique views were obtained. The distal aspect of the tibial lisha is seen. There is old fracture deformity at the shafts of the distal tibia and fibula extending to the lateral malleolus. There is no obvious acute fracture or dislocation. Calcaneal spurs are visualized. No significant soft tissue swelling is seen. IMPRESSION: POSTOPERATIVE AND CHRONIC POSTTRAUMATIC CHANGES. NO DEFINITE ACUTE BONY INJURY. LEFT TIB-FIB - 2 views COMPARISON: None AP and lateral views of the left tibia and fibula were obtained. There is old fracture deformity at the distal tibia and fibular shafts. There is a tibial intramedullary lisha with 2 proximal interlocking screws. No acute fracture or dislocation is noted. There is minor subcutaneous edema. Atherosclerotic plaque is visualized. There are hemostasis clips at the medial upper calf. IMPRESSION: OLD FRACTURES AND POSTOPERATIVE CHANGES. NO ACUTE BONY FINDINGS. Impression dictated by: Kusum Hall M.D. 11/14/2024 9:09 AM Dictation Location: [place] [address] Electronically authenticated by: [id number] Y Date: 11/14/2024 09:09
--- NOTE | 2024-11-14 07:53 | ED.GENADUL1 ---
HPI HPI - General Adult General Chief complaint: Extremity Injury, Lower Stated complaint: injuries from previous fall Time Seen by Provider: 11/14/24 07:41 Source: medical record Mode of arrival: ambulance History of Present Illness HPI narrative: Patient is a 84-year-old male who is presenting to the ER today with chief complaint of a fall approximately 7 to 10 days ago. At that time patient had an x-ray done of his left knee that was negative. Patient is in assisted living. Patient uses a walker typically to help with ambulation. Today patient has been having more pain to the left knee/ankle/foot. Patient does have healing ecchymosis to left leg. Patient lives in assisted living. Patient is on warfarin. Patient has no headache or neck pain. Patient arrived by EMS. Patient has small ecchymosis above left eyebrow. No chest pain or shortness of breath. Patient is A and O x 2, confused to time. Every time he asked the patient to question, he gives you a funny answer which is not the correct answer to the question you just asked him. However the second time he asking the question he will give you the right answer. Patient has no injury to the upper extremities bilateral. No pain to right knee, no new pain to right lower back, pelvis. No shortening or rotated leg noted. All systems are negative except as noted/marked. All systems reviewed and otherwise negative. Nurses note and vital signs reviewed and patient is not hypoxic. General: The patient appears well and in mild distress secondary to pain. Patient is resting uncomfortably on cart. Patient is intermittently moaning secondary to left leg pain patient is not toxic, lethargic, or listless Skin: Warm, dry, no pallor noted. There is no rash noted. No petechiae, purpura. Patient has ecchymosis noted to the proximal anterior thigh, left medial knee, left lower medial/posterior thigh, patient has mild to moderate ecchymosis noted to the left lateral malleoli. Head: Normocephalic, atraumatic Eye: Normal conjunctiva, no drainage, EOMI. PERRL Ears, Nose, Mouth, and Throat: oral mucosa is moist. Nares patent. Mouth without vesicles. Cardiovascular: Regular Rate and Rhythm, no murmur, gallop, rub Respiratory: Patient is in no distress, no accessory muscle use, lungs are clear to auscultation, no wheezing, rales or rhonchi Back: non-tender, no CVA tenderness bilaterally to percussion. No CT LS midline pain GI: no tenderness to palpation, no masses appreciated. No rebound, guarding, or rigidity noted. No distention Musculoskeletal: Patient has full range of motion of all of the extremities except the left leg. Patient has severe pain with flexion extension of the left knee, severe pain with attempt varus valgus stress left knee, when you do light palpation to left knee, patient hollers and moans in pain. Patient has no left posterior calf pain. Patient has moderate tenderness palpation to the left lateral malleoli. Patient has not no tenderness to palpation to the left Achilles tendon. Patient has no pain to left medial malleoli. Patient has severe pain with attempts of anterior posterior drawer sign of the left ankle. No tenderness to palpation to the bony prominences of the left foot. Anterior posterior sign, and any range of motion in the left knee was not able to be tolerated by patient secondary to pain. Patient does not have any signs of hemarthrosis to the left knee. Patient has no other new motor, sensory, or focal neurological deficits Neurological: A&O x2, confused to time, normal speech Psychiatric: Cooperative Related Data Home Medications ?Medication ?Instructions ?Recorded ?Confirmed warfarin 2 mg tablet 2 mg PO DAILY 12/05/23 11/14/24 aspirin 81 mg tablet,delayed 81 mg PO DAILY 11/14/24 11/14/24 release (Adult Aspirin Regimen) atorvastatin 20 mg tablet 20 mg PO DAILY 11/14/24 11/14/24 cyanocobalamin (vitamin B-12) 1,000 mcg PO DAILY 11/14/24 11/14/24 1,000 mcg tablet (Vitamin B-12) latanoprost 11/14/24 losartan 50 mg-hydrochlorothiazide 1 tab PO DAILY 11/14/24 11/14/24 12.5 mg tablet omeprazole 20 mg capsule,delayed 20 mg PO DAILY 11/14/24 11/14/24 release trazodone 50 mg tablet mg 11/14/24 Allergies Allergy/AdvReac Type Severity Reaction Status Date / Time No Known Drug Allergies Allergy Verified 11/14/24 07:58 Opioid HPI Opioid Management Most Recent Opioid Data: Ur Phencyclidine Scrn, (NEGATIVE) Negative 12/05/23, 19:15 PFSH PFSH Medical History (Updated 11/14/24 @ 12:01 by Vitor Sharpe MD) Atrial fibrillation ?I48.91 - Unspecified atrial fibrillation (ICD-10) CVA (cerebral vascular accident) ?I63.9 - Cerebral infarction, unspecified (ICD-10) Encephalopathy acute ?G93.40 - Encephalopathy, unspecified (ICD-10) Exam Constitutional Vital Signs, click to edit/add: Last Vital Signs Temp 97.6 F 11/14/24 07:31 Pulse 75 11/14/24 09:10 Resp 16 11/14/24 09:10 BP 177/111 H 11/14/24 09:00 Pulse Ox 97 11/14/24 09:10 O2 Del Method Room Air 11/14/24 07:31 Course Vital Signs Vital signs: Vital Signs Pulse Rate 80 11/14/24 07:29 Respiratory Rate 16 11/14/24 07:29 Blood Pressure 162/114 H 11/14/24 07:29 Pulse Oximetry 97 11/14/24 07:29 Temperature 97.6 F 11/14/24 07:31 Pulse Rate 75 11/14/24 09:10 Respiratory Rate 16 11/14/24 09:10 Blood Pressure 177/111 H 11/14/24 09:00 Pulse Oximetry 97 11/14/24 09:10 Oxygen Delivery Method Room Air 11/14/24 07:31 Medical Decision Making [facility] Narrative Medical decision making narrative: Patient seen and examined: CT of the head, x-rays of his left knee, tib-fib, ankle. Differential diagnosis includes but is not limited to: Intracranial hemorrhage, closed head injury, left knee fracture, left hip fracture, left ankle fracture, electrolyte abnormality, dehydration Diagnostics and management: Patient will have laboratory studies Relevant laboratory interpretation: White blood cell normal, H&H is 13/40, INR is 5.36, he has no active bleeding. BUN and creatinine are 22/0.8 Radiological studies: Please see the formal radiological report. Patient's left tib-fib, knee, ankle x-ray showed no acute fracture. CT report shows no acute findings. Reevaluation: Patient pain slightly better after oral [place]. Shared decision making: I discussed with the patient the necessary laboratory findings and radiological findings. Social barriers to healthcare: There are no food insecurities, there is no issue with transportation, there are no insurance barriers. Disposition: I discussed with the patient and the daughter who is at bedside the need for admission to the hospital versus placement in rehab. Patient is currently in assisted living, he uses a walker. Patient cannot stand up function, we will test this. Please see nursing documentation from Kat Walker RN. Patient was attempted to stand up, patient would not even toe touch. Patient was attempted with walker, he cannot stand or take any steps. We have spoken to the case management social worker,Sally. Patient will be admitted to the hospital for further evaluation, patient will need [facility] to an OT, patient will most likely need placement in rehab. Patient and daughter at bedside is aware of this. No question at discharge. 1145 patient blood pressure has been elevated, patient did not take his morning blood pressure medication. Patient was given his losartan/HCTZ. Patient will get the rest of his morning medications when he goes inpatient for Lab Data Labs: Lab Results 11/14/24 Range/Units 07:50 WBC 9.4 (4.0-11.0) 10^3/uL RBC 4.85 (4.70-6.10) 10^6/uL Hgb 13.2 L (14.0-18.0) g/dL Hct 40.6 L (42.0-54.0) % MCV 83.7 (80.0-94.0) fL MCH 27.2 (25.9-34.0) pg MCHC 32.5 (29.9-35.2) g/dL RDW 16.8 H (11.0-15.0) % Plt Count 169 (150-450) 10^3/uL MPV 10.5 (9.5-13.5) fL Neut % (Auto) 62.6 (43.0-75.0) % Lymph % (Auto) 23.5 (20.5-60.0) % [place] % (Auto) 12.4 H (1.7-12.0) % Eos % (Auto) 0.9 (0.9-7.0) % Baso % (Auto) 0.2 (0.2-2.0) % Neut # (Auto) 5.9 (1.4-6.5) 10^3/uL Lymph # (Auto) 2.2 (1.2-3.8) 10^3/uL [place] # (Auto) 1.2 H (0.3-0.8) 10^3/uL Eos # (Auto) 0.1 (0.0-0.7) 10^3/uL Baso # (Auto) 0.0 (0.0-0.1) 10^3/uL Abs Immat Gran (auto) 0.04 H (0.00-0.03) 10^3/uL Imm/Tot Granulo (auto) 0.4 (0.0-0.5) % PT 48.1 H* (9.0-11.6) sec INR 5.36 H* Sodium 143 (136-145) mmol/L Potassium 3.7 (3.5-5.1) mmol/L Chloride 105 (98-107) mmol/L Carbon Dioxide 29.2 (21.0-32.0) mmol/L Anion Gap 12.5 BUN 22.0 H (7.0-18.0) mg/dL Creatinine 0.83 (0.70-1.30) mg/dL Est GFR ( Amer) >60 (>=60 mL/min/1.73m^2) Est GFR (Non-Af Amer) >60 (>=60 mL/min/1.73m^2) BUN/Creatinine Ratio 26.5 Glucose 83 (74-106) mg/dL Calcium 8.3 L (8.5-10.1) mg/dL Total Bilirubin 1.0 (0.2-1.0) mg/dL AST 19 (15-37) U/L ALT 24 (16-63) U/L Alkaline Phosphatase 88 (46-116) U/L Total Creatine Kinase 78 (39-308) U/L Total Protein 5.9 L (6.4-8.2) g/dL Albumin 2.9 L (3.4-5.0) g/dL Globulin 3.0 g/dL Albumin/Globulin Ratio 1.0 Discharge Plan Discharge Chief Complaint: Extremity Injury, Lower Clinical Impression: Contusion of knee, left, Acute left ankle pain, Acute pain of left lower extremity, Traumatic ecchymosis of left lower leg, Supratherapeutic INR Patient Disposition: Admitted as Observation Time of Disposition Decision: 12:01 Condition: Fair
[2024-11-14] MEDS: HYDROCODONE/ACET 5-325 MG TABLET 1 TAB PO ×3 (08:13→21:50)
[2024-11-14 08:34] LABS: Basophils Percent Auto 0.2 % (0.2-2.0); Eosinophils Absolute Auto 0.1 10^3/uL (0.0-0.7); Eosinophils Percent Auto 0.9 % (0.9-7.0); Hematocrit 40.6 % (42.0-54.0); Hemoglobin 13.2 g/dL (14.0-18.0); Immature Granulocytes Abs Auto 0.04 10^3/uL (0.00-0.03); Immature Granulocytes Pct Auto 0.4 % (0.0-0.5); Lymphocytes Absolute Auto 2.2 10^3/uL (1.2-3.8); Lymphocytes Percent Auto 23.5 % (20.5-60.0); Mean Corpuscular HGB Conc 32.5 g/dL (29.9-35.2); Mean Corpuscular Hemoglobin 27.2 pg (25.9-34.0); Mean Corpuscular Volume 83.7 fL (80.0-94.0); Mean Platelet Volume 10.5 fL (9.5-13.5); Monocytes Absolute Auto 1.2 10^3/uL (0.3-0.8); Monocytes Percent Auto 12.4 % (1.7-12.0); Neutrophils Absolute Auto 5.9 10^3/uL (1.4-6.5); Neutrophils Percent Auto 62.6 % (43.0-75.0); Platelet Count 169 10^3/uL (150-450); Red Blood Count 4.85 10^6/uL (4.70-6.10); Red Cell Distribution Width 16.8 % (11.0-15.0); White Blood Count 9.4 10^3/uL (4.0-11.0)
[2024-11-14 08:49] LABS: Alanine Aminotransferase 24 U/L (16-63); Albumin Level 2.9 g/dL (3.4-5.0); Alkaline Phosphatase 88 U/L (46-116); Anion Gap 12.5; Aspartate Amino Transferase 19 U/L (15-37); BUN Creatinine Ratio 26.5; Calcium 8.3 mg/dL (8.5-10.1); Carbon Dioxide 29.2 mmol/L (21.0-32.0); Chloride 105 mmol/L (98-107); Creatine Kinase 78 U/L (39-308); Estimated GFR (African America >60 (>=60 mL/min/1.73m^2); Estimated GFR (Non-African Ame >60 (>=60 mL/min/1.73m^2); Glucose 83 mg/dL (74-106); Potassium 3.7 mmol/L (3.5-5.1); Sodium 143 mmol/L (136-145); Total Protein 5.9 g/dL (6.4-8.2)
[2024-11-14 09:04] LABS: INR 5.36; Prothrombin Time 48.1 sec (9.0-11.6)
--- NOTE | 2024-11-14 10:36 | SWNOTE1 ---
SW received a call that pt has had falls in the home and possibility of needing rehab. SW looked at insurance and pt is a precer to go to rehab. SW let nurse know. SW did ask if pt is agreeable and if he is up and ambulatory down in ED. SW let nurse know if he is up and walking without assistance less chance of getting approval. SW did let nurse know that SW can't get him from ED to alf due to needing precertification.
--- NOTE | 2024-11-14 11:42 | SWNOTE1 ---
SW and I met with pt and pt's daughter in room. Pt is from [facility]. Pt had a fall at [facility] and was having pain. SW did bring up rehab and the process of going to rehab. Pt is a precert and pt will have to have a medical reason to be admitted in order for SW to get him to rehab. Daughter did state that home health has been set up and should be coming in the next few days. Pt does not feel like he needs rehab but daughter did voice his pain was bad this morning on his knee. At this time it is dependent if pt is admitted or not. SW to follow if pt comes to floor.
[2024-11-14] MEDS: LOSARTAN POTASSIUM 50 MG TABLET PO (11:52)
[2024-11-14] MEDS: HYDROCHLOROTHIAZIDE 25 MG TABLET 12.5 MG PO (11:52)
--- NOTE | 2024-11-14 13:00 | PM.HP ---
HPI H&P: HPI History of Present Illness Chief complaint: L LEG PAIN, INABILITY TO AMBULATE, SUPRATHERAPUTIC Narrative: Patient is a 84 y.o white male with past medical history of A-fib on Coumadin therapy, GERD, HTN, HLD, insomnia and Alzheimer's dementia. Who was brought to the ER today after having a fall several days ago but pain became more severe to the left knee and he was not able to walk. Left knee gives out on him making it difficult to walk. Patient follows with Dr. Bhatti who is also managing his INR. Last dose was given last evening of coumadin. Last INR check about 3 weeks ago. He has had prior fracture repair of that left leg with plate and screw per daughter. No prior knee surgery. Patient admits to pain in the area of the bruising. Discussed INR 5.6. He denies any bleeding issues currently. He is currently residing in assistant therapy aide living at [facility]. Pain is localized to the left knee. Opioid HPI Opioid Management Most Recent Pain and Opioid Data: Last Pain Assessment Today, 13:23 Last ORT Total Score 0 Today, 12:55 Last ORT Risk Category Low Risk Today, 12:55 Ur Phencyclidine Scrn, (NEGATIVE) Negative 12/05/23, 19:15 Review of Systems ROS Narrative ROS: a complete review of systems were reviewed with patient and are positive as below or listed in History of Chief Complaint. General: no fever, chills, night sweats Head: no headache, trauma, visual changes, nausea or vomiting Skin: no reported rashes, itching or sores Eyes: no blurriness of vision Ears: no reported hearing loss, vertigo, earache, or tinnitus Throat: no sore throat, hoarseness, swelling of neck, or tongue pain Heart: no chest pain Lungs: no shortness of breath or cough GI: no diarrhea or vomiting/nausea Urinary: no urinary urgency, frequency or pain Neuro: no numbness or tingling, pain in the left knee HEM: no bleeding issues or bruising ENDO: no thyroid problems Psych: no anxiety or depression [facility] Medical History (Updated 11/14/24 @ 14:09 by Ester Gallardo DO) GERD (gastroesophageal reflux disease) ?K21.9 - Gastro-esophageal reflux disease without esophagitis (ICD-10) Hypertension ?I10 - Essential (primary) hypertension (ICD-10) Glaucoma ?H40.9 - Unspecified glaucoma (ICD-10) Atrial fibrillation ?I48.91 - Unspecified atrial fibrillation (ICD-10) Surgical History 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 Smoking status: Former smoker Non-prescribed substance use: denies use Previous occupational history: Retired Highest level of school completed/degree received: high school graduate Little interest or pleasure in doing things: not at all Feeling down, depressed, or hopeless: not at all Feel stressed/tense/nervous/anxious/difficulty sleeping: not at all Meds Home Medications and Allergies Home Medications ?Medication ?Instructions ?Recorded ?Confirmed ?Type warfarin 2 mg tablet 2 mg PO DAILY 12/05/23 11/14/24 History aspirin 81 mg tablet,delayed 81 mg PO DAILY 11/14/24 11/14/24 History release (Adult Aspirin Regimen) atorvastatin 20 mg tablet 20 mg PO DAILY 11/14/24 11/14/24 History cyanocobalamin (vitamin B-12) 1,000 mcg PO DAILY 11/14/24 11/14/24 History 1,000 mcg tablet (Vitamin B-12) losartan 50 mg-hydrochlorothiazide 1 tab PO DAILY 11/14/24 11/14/24 History 12.5 mg tablet omeprazole 20 mg capsule,delayed 20 mg PO DAILY 11/14/24 11/14/24 History release trazodone 50 mg tablet 50 mg PO BEDTIME 11/14/24 11/14/24 History Allergies Allergy/AdvReac Type Severity Reaction Status Date / Time No Known Drug Allergies Allergy Verified 11/14/24 07:58 Exam Narrative Exam Narrative: General: Patient is alert, and oriented to person, proper hygiene Skin: large ecchymosis of the inner left leg that extends up the thigh and includes the knee joint, hematoma of the patellar region of the left leg with warmth with palpation of the left knee joint. No calf swelling, no ankle swelling or foot swelling. No pain on the upper thigh Head: atraumatic, acephalic Eyes: PERRLA, no nystagmus present, conjunctiva clear, no scleral icterus Ears: diminished gross auditory acuity Heart: irregular rhythm, normal rate, no murmurs/rubs/gallops Lungs: no audible wheezes, crackles and normal breath sounds all lung rolon Abdomen: Normal audible bowel sounds, no distension, No palpable masses, no organomegaly, no rebound/guarding/ or rigidity Neuro: CN II-X grossly intact Constitutional Vital Signs, click to edit/add: Last Vital Signs Temp 97.6 F 11/14/24 07:31 Pulse 75 11/14/24 09:10 Resp 16 11/14/24 09:10 BP 140/98 H 11/14/24 12:04 Pulse Ox 97 11/14/24 09:10 O2 Del Method Room Air 11/14/24 07:31 Results Labs Labs: Short CBC 11/14/24 Range/Units 07:50 WBC 9.4 (4.0-11.0) 10^3/uL Hgb 13.2 L (14.0-18.0) g/dL Hct 40.6 L (42.0-54.0) % Plt Count 169 (150-450) 10^3/uL BMP 11/14/24 07:50 Sodium 143 Potassium 3.7 Chloride 105 Carbon Dioxide 29.2 BUN 22.0 H Creatinine 0.83 Glucose 83 Calcium 8.3 L Cardiac Enzymes 11/14/24 Range/Units 07:50 Total Creatine Kinase 78 (39-308) U/L Liver Function 11/14/24 Range/Units 07:50 Total Bilirubin 1.0 (0.2-1.0) mg/dL AST 19 (15-37) U/L ALT 24 (16-63) U/L Alkaline Phosphatase 88 (46-116) U/L Albumin 2.9 L (3.4-5.0) g/dL Assessment and Plan Assessment and Plan (1) Supratherapeutic INR: Assessment and Plan: INR 5.6, no spontaneous bleeding but in the setting of age and the extension of his traumatic ecchymosis will hold the aspirin and given 1mg of oral Vitamin K. Recheck INR in the morning. (2) Traumatic ecchymosis of left lower leg: Assessment and Plan: X-ray have been negative, plan to check Ultrasound looking for fluid collections Qualifiers: Encounter type: initial encounter Qualified Code(s): S80.12XA - Contusion of left lower leg, initial encounter (3) Acute pain of left lower extremity: Assessment and Plan: Placed on [place] for pain control (4) Contusion of knee, left: Assessment and Plan: see #2, check ESR, CRP and uric acid, normal WBC's Qualifiers: Encounter type: initial encounter Qualified Code(s): S80.02XA - Contusion of left knee, initial encounter (5) GERD (gastroesophageal reflux disease): Assessment and Plan: continue omeprazole Qualifiers: Esophagitis presence: without esophagitis Qualified Code(s): K21.9 - Gastro-esophageal reflux disease without esophagitis (6) Hypertension: Assessment and Plan: continue losartan-hctz Qualifiers: Hypertension type: primary hypertension Qualified Code(s): I10 - Essential (primary) hypertension (7) Atrial fibrillation: Assessment and Plan: hold Coumadin for now until target range 2.5-3.0. rate controlled. Qualifiers: Atrial fibrillation type: longstanding persistent Qualified Code(s): I48.11 - Longstanding persistent atrial fibrillation (8) Weakness of left leg: Assessment and Plan: get PT/OT evaluations Plan Patient is a full code compression stockings only with INR 5.6 Patient is observation status and is not expected to cross 2 midnights
[2024-11-14 14:18] LABS: C Reactive Protein <0.50 mg/dL (<=0.50); Uric Acid 3.5 mg/dL (3.5-7.2)
[2024-11-14 14:20] LABS: Erythrocyte Sedimentation Rate 12 mm/hr (<=20)
[2024-11-14] MEDS: PHYTONADIONE (VIT K1) 10 MG/ML AMPUL PO (14:37)
[2024-11-14] MEDS: MORPHINE SULFATE 2 MG/ML SYRINGE 1 MG IV (15:15)
[2024-11-14] MEDS: TRAZODONE HCL 50 MG TABLET PO (21:50)
[2024-11-15 03:50] VITALS: BP 131/87; PULSE 66; TEMP 36.6; O2SAT 93
[2024-11-15] MEDS: PANTOPRAZOLE SODIUM 40 MG TABLET.DR 20 MG PO (05:39)
[2024-11-15 05:48] LABS: Basophils Percent Auto 0.4 % (0.2-2.0); Eosinophils Absolute Auto 0.2 10^3/uL (0.0-0.7); Eosinophils Percent Auto 2.8 % (0.9-7.0); Hematocrit 42.2 % (42.0-54.0); Hemoglobin 13.5 g/dL (14.0-18.0); Immature Granulocytes Abs Auto 0.03 10^3/uL (0.00-0.03); Immature Granulocytes Pct Auto 0.4 % (0.0-0.5); Lymphocytes Percent Auto 23.7 % (20.5-60.0); Mean Corpuscular Hemoglobin 26.8 pg (25.9-34.0); Mean Corpuscular Volume 83.9 fL (80.0-94.0); Mean Platelet Volume 10.1 fL (9.5-13.5); Monocytes Absolute Auto 1.1 10^3/uL (0.3-0.8); Monocytes Percent Auto 12.7 % (1.7-12.0); Platelet Count 172 10^3/uL (150-450); Red Blood Count 5.03 10^6/uL (4.70-6.10); Red Cell Distribution Width 16.9 % (11.0-15.0); White Blood Count 8.4 10^3/uL (4.0-11.0)
[2024-11-15 05:59] LABS: Anion Gap 12.3; BUN Creatinine Ratio 29.8; Calcium 8.5 mg/dL (8.5-10.1); Carbon Dioxide 28.7 mmol/L (21.0-32.0); Chloride 103 mmol/L (98-107); Estimated GFR (African America >60 (>=60 mL/min/1.73m^2); Estimated GFR (Non-African Ame >60 (>=60 mL/min/1.73m^2); Glucose 87 mg/dL (74-106); Sodium 140 mmol/L (136-145)
[2024-11-15 06:00] LABS: INR 2.29; Prothrombin Time 22.4 sec (9.0-11.6)
[2024-11-15 08:00] VITALS: BP 127/88; PULSE 90; O2SAT 94
[2024-11-15] MEDS: ATORVASTATIN CALCIUM 20 MG TABLET PO (08:47)
[2024-11-15] MEDS: HYDROCHLOROTHIAZIDE 25 MG TABLET 12.5 MG PO (08:48)
[2024-11-15] MEDS: LOSARTAN POTASSIUM 50 MG TABLET PO (08:48)
--- NOTE | 2024-11-15 08:50 | SWNOTE1 ---
Medicare Outpatient Observation Notice reviewed and discussed with patient's daughter Isabelle Booth over the phone. Pt's daughter verbalized understanding and SW signed the form that it was reviewed. Original given to patient and copy placed in patient?s chart.
--- NOTE | 2024-11-15 08:51 | SWNOTE1 ---
Medicare Outpatient Observation Notice reviewed and discussed with patient's daughter, Isabelle Booth, over the phone. Pt's daughter verbalized understanding and SW signed the form that it was reviewed. Original placed in pt's room and copy placed in patient?s chart.
--- NOTE | 2024-11-15 08:51 | PM.PN ---
Progress Note: Subjective Subjective Interval history: Patient is resting with left leg elevated. Patient notes pain still in the anterior portion of the knee. Says pain medication is helping. Exam Narrative Exam Narrative: General: Patient is alert, and oriented to person, proper hygiene Skin: large ecchymosis of the inner left leg that extends up the thigh and includes the knee joint, hematoma of the patellar region of the left leg with warmth with palpation of the left knee, joint. No calf swelling, no ankle swelling or foot swelling. No pain on the upper thigh, ecchymosis also seen in the medial aspect of the left leg Head: atraumatic, acephalic Eyes: PERRLA, no nystagmus present, conjunctiva clear, no scleral icterus Ears: diminished gross auditory acuity Heart: irregular rhythm, normal rate, no murmurs/rubs/gallops Lungs: no audible wheezes, crackles and normal breath sounds all lung rolon Abdomen: Normal audible bowel sounds, no distension, No palpable masses, no organomegaly, no rebound/guarding/ or rigidity Neuro: CN II-X grossly intact Constitutional Vital Signs, click to edit/add: Last Vital Signs Temp 97.9 F 11/15/24 03:50 Pulse 90 11/15/24 08:00 Resp 18 11/15/24 08:00 BP 127/88 11/15/24 08:00 Pulse Ox 94 L 11/15/24 08:00 O2 Del Method Room Air 11/15/24 03:50 O2 Flow Rate 2 11/14/24 20:21 Progress Note: Objective Labs Labs: Short CBC 11/15/24 Range/Units 05:31 WBC 8.4 (4.0-11.0) 10^3/uL Hgb 13.5 L (14.0-18.0) g/dL Hct 42.2 (42.0-54.0) % Plt Count 172 (150-450) 10^3/uL BMP 11/15/24 05:31 Sodium 140 Potassium 4.0 Chloride 103 Carbon Dioxide 28.7 BUN 25.0 H Creatinine 0.84 Glucose 87 Calcium 8.5 Progress Note: A&P Assessment and Plan (1) Supratherapeutic INR: Assessment and Plan: INR 5.6, was given 1mg of oral Vitamin K. Recheck INR today 2.2, pharmacy to start dosing warfarin (2) Traumatic ecchymosis of left lower leg: Assessment and Plan: X-ray have been negative for acute fractures, Ultrasound negative for fluid collections, may consider MRI vs CT ext if patient cannot have MRI, ortho consult if possible Qualifiers: Encounter type: initial encounter Qualified Code(s): S80.12XA - Contusion of left lower leg, initial encounter (3) Acute pain of left lower extremity: Assessment and Plan: Placed on [place] for pain control and IV morphine as needed (4) Contusion of knee, left: Assessment and Plan: see #2, normal ESR, CRP and uric acid, normal WBC's Qualifiers: Encounter type: initial encounter Qualified Code(s): S80.02XA - Contusion of left knee, initial encounter (5) GERD (gastroesophageal reflux disease): Assessment and Plan: continue omeprazole Qualifiers: Esophagitis presence: without esophagitis Qualified Code(s): K21.9 - Gastro-esophageal reflux disease without esophagitis (6) Hypertension: Assessment and Plan: continue losartan-hctz Qualifiers: Hypertension type: primary hypertension Qualified Code(s): I10 - Essential (primary) hypertension (7) Atrial fibrillation: Assessment and Plan: rate controlled. resume coumadin Qualifiers: Atrial fibrillation type: longstanding persistent Qualified Code(s): I48.11 - Longstanding persistent atrial fibrillation (8) Weakness of left leg: Assessment and Plan: PT/OT evaluations and treatment; ortho consult for possible brace? Plan Patient is a full code Hopeful ortho consult today for further quidance with assisted work up, brace and/or MRI vs CT
--- NOTE | 2024-11-15 08:57 | SWNOTE1 ---
SW and I met pt in room. Pt was eating breakfast. SW did ask pt if he knew where he was at, he stated I am here in this room with you. Then SW asked do you know what place you are at. Pt did not have an answer, SW let him know he was at the hospital. SW let him know rehab is recommended due to his knee pain and he needs to get stronger before he returns to [facility]. Pt did voice agreement but SW is unsure if he fully understands. BANDAR asked if his daughter was coming in today, pt voiced he has two daughters. SW let pt know SW will call one of the daughters. SW called daughter, Isabelle, and spoke to her about pt needing to go to SNF for rehab. She was in agreement and stated pt was in the [facility] last summer, and she would like him to go there. SW to reach out to the [facility] and send referral. Referral sent to the [facility].
[2024-11-15] MEDS: HYDROCODONE/ACET 5-325 MG TABLET 1 TAB PO ×3 (09:33→23:20)
--- NOTE | 2024-11-15 10:42 | CM.NOTE ---
Rounds made with Dr. Gallardo. Dr. Gallardo reviews plan of care with Adenike. Awaiting Ortho Consult for further suggestions/plan.
[2024-11-15 12:00] VITALS: BP 131/78; PULSE 85; TEMP 36.7; O2SAT 94
--- NOTE | 2024-11-15 12:58 | SWNOTE1 ---
SW received email from [facility] and they are able to accept and precert started.
--- NOTE | 2024-11-15 15:01 | P.ORCN_ITS ---
History of Present Illness HPI Consult date: 11/15/24 Requesting physician: Ester Gallardo Chief complaint: L LEG PAIN, INABILITY TO AMBULATE, SUPRATHERAPUTIC Narrative: Patient is an 84-year-old male who was brought to the ER yesterday from his assisted living with complaints of worsening left lower extremity pain from the knee down with bruising to the anterior knee, calf, and medial ankle/heel. His INR was 5.3 on arrival, he is on Coumadin for A-fib. He normally ambulates with a walker. Ortho was consulted for further recommendations. My exam patient states that he is Devyn Too and per RN he has been confused. He has not been putting weight on the left lower extremity and is very painful when palpating the left knee, calf, or ankle. Ultrasound of the left lower extremity was negative for fluid collection, but not a vascular study. X-rays were negative as well. Patient has had a prior tibial IM nail after a distal shaft tibia fracture and distal fibula fracture. [facility] Medical History (Updated 11/14/24 @ 14:09 by Ester Gallardo DO) GERD (gastroesophageal reflux disease) ?K21.9 - Gastro-esophageal reflux disease without esophagitis (ICD-10) Hypertension ?I10 - Essential (primary) hypertension (ICD-10) Glaucoma ?H40.9 - Unspecified glaucoma (ICD-10) Atrial fibrillation ?I48.91 - Unspecified atrial fibrillation (ICD-10) Surgical History 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 Smoking status: Former smoker Non-prescribed substance use: denies use Previous occupational history: Retired Highest level of school completed/degree received: high school graduate Little interest or pleasure in doing things: not at all Feeling down, depressed, or hopeless: not at all Feel stressed/tense/nervous/anxious/difficulty sleeping: not at all Meds Home Medications and Allergies Home Medications ?Medication ?Instructions ?Recorded ?Confirmed ?Type warfarin 2 mg tablet 2 mg PO DAILY 12/05/2311/14 History aspirin 81 mg tablet,delayed 81 mg PO DAILY 11/14/24 0 11/14/24 History release (Adult Aspirin Regimen) atorvastatin 20 mg tablet 20 mg PO DAILY 11/14/2403/02 History cyanocobalamin (vitamin B-12) 1,000 mcg PO DAILY 11/1411/14/24 History 1,000 mcg tablet (Vitamin B-12) losartan 50 mg-hydrochlorothiazide 1 tab PO DAILY 03/0211/14/24 History 12.5 mg tablet omeprazole 20 mg capsule,delayed 20 mg PO DAILY 11/14/24 History release trazodone 50 mg tablet 50 mg PO BEDTIME 11/14/24 History Allergies Allergy/AdvReac Type Severity Reaction Status Date / Time No Known Drug Allergies Allergy Verified 11/14/24 07:58 Exam Narrative Exam Narrative: On exam patient is sitting up in the bed, awake and alert, not oriented, in no distress. On inspection of the left lower extremity at the anterior knee there is a hematoma, it appears somewhat infrapatellar and is tender, there is ecchymosis along the calf that is tender, no palpable cords, compartments are soft and compressible, there is ecchymosis at the medial ankle into the heel, the medial ankle is diffusely tender. Patient can slightly flex the knee, dorsiflex and plantarflex the ankle, and wiggles toes. Knee and ankle ROM is reduced secondary to pain and swelling. 2+ DP pulse palpated. Sensation is intact distally with light touch. Constitutional Vital Signs, click to edit/add: Last Vital Signs Temp 98.0 F 11/15/24 12:00 Pulse 85 11/15/24 12:00 Resp 18 11/15/24 12:00 BP 131/78 11/15/24 12:00 Pulse Ox 94 L 11/15/24 12:00 O2 Del Method Room Air 11/15/24 12:00 O2 Flow Rate 2 11/14/24 20:21 Results Labs Labs: Abnormal lab results 11/15/24 Range/Units 05:31 Hgb 13.5 L (14.0-18.0) g/dL RDW 16.9 H (11.0-15.0) % [place] % (Auto) 12.7 H (1.7-12.0) % [place] # (Auto) 1.1 H (0.3-0.8) 10^3/uL PT 22.4 H (9.0-11.6) sec BUN 25.0 H (7.0-18.0) mg/dL H & H 11/14/24 11/15/24 Range/Units 07:50 05:31 Hgb 13.2 L 13.5 L (14.0-18.0) g/dL Hct 40.6 L 42.2 (42.0-54.0) % Coagulation 11/14/24 11/15/24 Range/Units 07:50 05:31 INR 5.36 H* 2.29 All other labs normal. Assessment and Plan Assessment and Plan (1) Supratherapeutic INR: (2) Traumatic ecchymosis of left lower leg: Assessment and Plan: Hematomas of the left lower extremity, knee, calf, medial ankle secondary to trauma and supratherapeutic INR - X-rays of the left knee, tib-fib, and ankle were negative for apparent fracture or dislocation. There is previous trauma noted at the distal tibial shaft with a IM nail in place and healed fracture, there is also a healed fracture of the distal fibula. - Ultrasound LLE negative for fluid collection or soft tissue mass, not a vascular study. - No current signs of skin breakdown or infection around the hematomas, continue to monitor - Since patient cannot bear weight, would trial a few weeks of non weightbearing with a walker given xrays have been negative to give hematomas time to heal. A tall cam walking boot could be trialed to see if he can bear weight in that but may irritate the calf hematoma. A knee immobilizer could also be used for short immobilization if he can tolerate it but he was hypersensitive to touch on exam. Given his confusion it's hard to tell what hurts more with ambulation attempts, knee or ankle. If no brace is tolerated than keep non weightbearing and monitor hematomas for skin breakdown or infection and he can follow up with Ortho outpatient. - Hgb stable at 13 since admission - CT/ MRI would be helpful to rule out occult fracture. - Follow up with Dr Grewal in [place] or [place] in 1-2 weeks after discharge. Plan discussed with and agreed upon by my Supervising Physician, Dr Grewal. Qualifiers: Encounter type: initial encounter Qualified Code(s): S80.12XA - Contusion of left lower leg, initial encounter (3) Acute pain of left lower extremity: (4) Contusion of knee, left: Qualifiers: Encounter type: initial encounter Qualified Code(s): S80.02XA - Contusion of left knee, initial encounter (5) GERD (gastroesophageal reflux disease): Qualifiers: Esophagitis presence: without esophagitis Qualified Code(s): K21.9 - Gastro-esophageal reflux disease without esophagitis (6) Hypertension: Qualifiers: Hypertension type: primary hypertension Qualified Code(s): I10 - Essential (primary) hypertension (7) Atrial fibrillation: Qualifiers: Atrial fibrillation type: longstanding persistent Qualified Code(s): I48.11 - Longstanding persistent atrial fibrillation (8) Weakness of left leg:
[2024-11-15 16:00] VITALS: BP 119/81; PULSE 90; TEMP 36.7; O2SAT 93
[2024-11-15] MEDS: WARFARIN SODIUM 4 MG TABLET PO (17:22)
[2024-11-15 19:17] VITALS: BP 125/76; PULSE 87; TEMP 36.7; O2SAT 92
[2024-11-15] MEDS: TRAZODONE HCL 50 MG TABLET PO (21:07)
[2024-11-15 23:12] VITALS: BP 145/93; PULSE 81; TEMP 36.8; O2SAT 93
[2024-11-16] VITALS (8 sets, daily range): BP systolic 106–142; BP diastolic 74–95; PULSE 76–93; TEMP 36.3–36.8; O2SAT 91–94
[2024-11-16 05:25] LABS: Basophils Percent Auto 0.4 % (0.2-2.0); Eosinophils Absolute Auto 0.3 10^3/uL (0.0-0.7); Eosinophils Percent Auto 3.1 % (0.9-7.0); Hematocrit 40.4 % (42.0-54.0); Immature Granulocytes Abs Auto 0.05 10^3/uL (0.00-0.03); Immature Granulocytes Pct Auto 0.6 % (0.0-0.5); Lymphocytes Absolute Auto 1.5 10^3/uL (1.2-3.8); Lymphocytes Percent Auto 17.7 % (20.5-60.0); Mean Corpuscular HGB Conc 32.2 g/dL (29.9-35.2); Mean Corpuscular Hemoglobin 26.9 pg (25.9-34.0); Mean Corpuscular Volume 83.5 fL (80.0-94.0); Mean Platelet Volume 9.3 fL (9.5-13.5); Monocytes Absolute Auto 1.2 10^3/uL (0.3-0.8); Monocytes Percent Auto 14.7 % (1.7-12.0); Neutrophils Absolute Auto 5.3 10^3/uL (1.4-6.5); Neutrophils Percent Auto 63.5 % (43.0-75.0); Platelet Count 157 10^3/uL (150-450); Red Blood Count 4.84 10^6/uL (4.70-6.10); Red Cell Distribution Width 16.7 % (11.0-15.0); White Blood Count 8.3 10^3/uL (4.0-11.0)
[2024-11-16 05:40] LABS: INR 1.46; Prothrombin Time 14.9 sec (9.0-11.6)
[2024-11-16 05:44] LABS: Anion Gap 10.6; BUN Creatinine Ratio 24.1; Calcium 8.3 mg/dL (8.5-10.1); Carbon Dioxide 31.1 mmol/L (21.0-32.0); Chloride 100 mmol/L (98-107); Estimated GFR (African America >60 (>=60 mL/min/1.73m^2); Estimated GFR (Non-African Ame >60 (>=60 mL/min/1.73m^2); Glucose 101 mg/dL (74-106); Potassium 3.7 mmol/L (3.5-5.1); Sodium 138 mmol/L (136-145)
[2024-11-16] MEDS: PANTOPRAZOLE SODIUM 40 MG TABLET.DR 20 MG PO (05:46)
[2024-11-16] MEDS: HYDROCODONE/ACET 5-325 MG TABLET 1 TAB PO (08:08)
[2024-11-16] MEDS: ATORVASTATIN CALCIUM 20 MG TABLET PO (08:08)
[2024-11-16] MEDS: HYDROCHLOROTHIAZIDE 25 MG TABLET 12.5 MG PO (08:09)
[2024-11-16] MEDS: LOSARTAN POTASSIUM 50 MG TABLET PO (08:11)
--- NOTE | 2024-11-16 08:29 | PM.PN ---
Progress Note: Subjective Subjective Interval history: Patient sleeping currently. He received Trazodone last night and his [place] this morning at 8am. I think the [place] and Trazodone combo are causing sleepiness. I have decreased the duration of [place] to q8 hours. I have also d/c morphine so he does not receive this. Ortho came to see yesterday and recs in the chart. I have also reviewed CT scan and results below. Labs stable. INR 1.4 and pharmacy restarted coumadin yesterday with INR 2.29. Aspirin also restarted. Still awaiting precert to the [facility] for acute skilled rehab. Exam Narrative Exam Narrative: General: Patient is sleeping, opens eyes to name. Skin: large ecchymosis of the inner left leg that extends up the thigh and includes the knee joint, hematoma of the patellar region of the left leg with warmth with palpation of the left knee, joint. No calf swelling, no ankle swelling or foot swelling. No pain on the upper thigh, ecchymosis also seen in the medial aspect of the left leg Head: atraumatic, acephalic Eyes: PERRLA, no nystagmus present, conjunctiva clear, no scleral icterus Ears: diminished gross auditory acuity Heart: irregular rhythm, normal rate, no murmurs/rubs/gallops Lungs: no audible wheezes, crackles and normal breath sounds all lung rolon Abdomen: Normal audible bowel sounds, no distension, No palpable masses, no organomegaly, no rebound/guarding/ or rigidity Constitutional Vital Signs, click to edit/add: Last Vital Signs Temp 97.4 F L 11/16/24 07:00 Pulse 82 11/16/24 07:25 Resp 14 11/16/24 07:25 BP 125/77 11/16/24 07:00 Pulse Ox 94 L 11/16/24 07:00 O2 Del Method Room Air 11/16/24 07:00 O2 Flow Rate 2 11/14/24 20:21 Progress Note: Objective Labs Labs: Short CBC 11/16/24 Range/Units 05:16 WBC 8.3 (4.0-11.0) 10^3/uL Hgb 13.0 L (14.0-18.0) g/dL Hct 40.4 L (42.0-54.0) % Plt Count 157 (150-450) 10^3/uL BMP 11/16/24 05:16 Sodium 138 Potassium 3.7 Chloride 100 Carbon Dioxide 31.1 BUN 21.0 H Creatinine 0.87 Glucose 101 Calcium 8.3 L Progress Note: A&P Assessment and Plan (1) Supratherapeutic INR: Assessment and Plan: INR 1.4, Coumadin and aspirin has been restarted. Coumadin dosing per Pharmacist (2) Traumatic ecchymosis of left lower leg: Assessment and Plan: CT scan of the Left knee and leg obtained and showed a hematoma of the patellar tendon, small left joint effusion, Mild/moderated tricompartment osteo and no acute fractures or dislocation of the knee or Tib/fib with soft tissue swelling over the ankle, old healed fracture of the tib/fib, Stable hardware/lisha; Ortho came to see patient yesterday and recommended: Since patient cannot bear weight, would trial a few weeks of non weightbearing with a walker given xrays have been negative to give hematomas time to heal. A tall cam walking boot could be trialed to see if he can bear weight in that but may irritate the calf hematoma. A knee immobilizer could also be used for short immobilization if he can tolerate it but he was hypersensitive to touch on exam. Given his confusion it's hard to tell what hurts more with ambulation attempts, knee or ankle. If no brace is tolerated than keep non weightbearing and monitor hematomas for skin breakdown or infection and he can follow up with Ortho outpatient Qualifiers: Encounter type: initial encounter Qualified Code(s): S80.12XA - Contusion of left lower leg, initial encounter (3) Acute pain of left lower extremity: Assessment and Plan: continue with trial of above, I have placed new PT evaluation in light of change of Weight bearing status with walker (4) Contusion of knee, left: Assessment and Plan: see #2 Qualifiers: Encounter type: initial encounter Qualified Code(s): S80.02XA - Contusion of left knee, initial encounter (5) GERD (gastroesophageal reflux disease): Assessment and Plan: continue omeprazole Qualifiers: Esophagitis presence: without esophagitis Qualified Code(s): K21.9 - Gastro-esophageal reflux disease without esophagitis (6) Hypertension: Assessment and Plan: continue losartan-hctz Qualifiers: Hypertension type: primary hypertension Qualified Code(s): I10 - Essential (primary) hypertension (7) Atrial fibrillation: Assessment and Plan: resume coumadin, rate controlled Qualifiers: Atrial fibrillation type: longstanding persistent Qualified Code(s): I48.11 - Longstanding persistent atrial fibrillation (8) Weakness of left leg: Assessment and Plan: PT/OT evaluations and treatment; ortho consult recommendations and precert to half-way for rehab (9) Substance or medication-induced sleep disorder, daytime sleepiness type: Assessment and Plan: stop morphine and decrease dosage on [place], also takes trazodone at home for sleep. Will decrease this tonight. Plan Patient is a full code Currently precert for care home/rehab
--- NOTE | 2024-11-16 09:42 | PT.DAILY ---
Physical Therapy Daily Note PT Daily Note/Assess Start: 11/15/24 07:46 Freq: Status: Active Protocol: Document 11/16/24 09:34 KERRYLONE (Rec: 11/16/24 09:41 SPANFALONE [id number]) Physical Therapy Daily Note/Assessment Time In/Time Out Time In 08:55 Time Out 09:20 Pain In Pain N/A Pain Out Pain N/A Subjective Subjective Pt seems more lethargic today vs previous session. Unable to respond appropriately to questions asked. Therapeutic Activity Time Therapeutic Activity 8 Minutes (minutes) Therapeutic Activity 1 Units Therapeutic Activity Treatment Bed Mobility Ability Moderate Assist,2 Person Assist Chair Transfer Maximum Assist,Total Assist,2 Person Assist Ability Therapeutic Activity Supine>sit with ModA+2 to advance trunk and LE's to sit Comments EOB. Pt requires modA of 1 to maintain upright seated balance due to heavy R Lateral/posterior lean. Attempted seated ex but unable to follow simple commands. Encouraged to attempt to bend L knee but pt unable. Attempt to stand with pt Max+2/total assist but unable/unwilling to clear bed with 3x attempts. Pt returned to supine with ModA+2 for trunk and LEs. Pillow under L LE. Call light within reach and student liaison officer present upon departure. Consult with nursing (Carmella, RN and Isabelle, RN with preference of CAM boot vs Knee immobilizer per Dr. Gallardo 's request, if pt were to tolerate standing. Want to encourage knee flexion if possible with no fractures present. Otherwise if pt does not have CAM boot/ immobilizer he will be NWB L LE) Total Physical Therapy Time Total Therapy 8 Minutes Total Physical 1 Therapy Units Summary Daily Note Summary Poor tolerance/ability to participate on this date due to lethargy. Edit Result 11/16/24 09:34 SPANCORYLONE (Rec: 11/16/24 09:42 SPANFALONE [id number]) Physical Therapy Daily Note/Assessment Summary Daily Note Summary Poor tolerance/ability to participate on this date due to lethargy. Nursing notified.
[2024-11-16] MEDS: ASPIRIN 81 MG TAB.CHEW PO (09:58)
--- NOTE | 2024-11-16 10:50 | CM.NOTE ---
Rounds made with Dr. Gallardo, pt very lethargic. No discharge today.
--- NOTE | 2024-11-16 11:27 | PC.NURSE ---
patient very confused and agitated, continuously trying to get out of bed. states he has to go to the bathroom, staff assisted him with the urinal and up to the bedside commode with no voids or BM, patient was bladder scanned and 250ml was measured. Patient talking, not making any sense, not responding appropriately to questions, and not following commands. Dr. Gallardo notified
[2024-11-16] MEDS: DIPHENHYDRAMINE HCL 50 MG/ML VIAL 25 MG IVP (11:37)
--- NOTE | 2024-11-16 13:55 | PC.NURSE ---
patient agitated, restless, trying to climb out of bed again. Yelling out. Will give PRN zyprexa per order
[2024-11-16] MEDS: WATER FOR INJECTION, STERILE 20 ML VIAL 2.1 ML INJ (13:56)
[2024-11-16] MEDS: OLANZAPINE 10 MG VIAL 5 MG IM (13:58)
--- NOTE | 2024-11-16 15:07 | SWNOTE1 ---
Updated physician notes, PT/OT, vitals, labs, diagnostic imaging, and ortho consult faxed to [facility] for precert.
--- NOTE | 2024-11-16 15:27 | SWNOTE1 ---
SW completed PASR online, SW took packet to floor in case pt gets approved. SW let [facility] know to call SW or med/surge floor if they get approval.
[2024-11-16] MEDS: WARFARIN SODIUM 3 MG TABLET 6 MG PO (16:08)
[2024-11-16] MEDS: GLYCERIN ADULT 2 GRAM RECTAL SUPPOSITORY 1 SUPP PR (16:09)
[2024-11-16] MEDS: ACETAMINOPHEN 325 MG TABLET 650 MG PO (18:31)
[2024-11-16 21:06] LABS: Bilirubin Urine NEGATIVE (NEGATIVE); Blood Urine MODERATE (NEGATIVE); Clarity Urine CLEAR (CLEAR); Color Urine LT. YELLOW (YELLOW); Glucose Urine UA NEGATIVE (NEGATIVE); Ketones Urine NEGATIVE (NEGATIVE); Leukocyte Esterase Urine TRACE (NEGATIVE); Nitrite Urine NEGATIVE (NEGATIVE); Protein Urine NEGATIVE (NEG/TRACE); pH Urine 6.5 (5.0-9.0)
[2024-11-16] MEDS: TRAZODONE HCL 50 MG TABLET 25 MG PO (22:18)
[2024-11-17] MEDS: HYDROCODONE/ACET 5-325 MG TABLET 1 TAB PO (05:30)
[2024-11-17] MEDS: PANTOPRAZOLE SODIUM 40 MG TABLET.DR 20 MG PO (05:31)
[2024-11-17 05:32] VITALS: BP 158/92; PULSE 70; TEMP 36.5; O2SAT 94
[2024-11-17 05:59] LABS: Basophils Percent Auto 0.4 % (0.2-2.0); Eosinophils Absolute Auto 0.3 10^3/uL (0.0-0.7); Eosinophils Percent Auto 3.6 % (0.9-7.0); Hematocrit 43.5 % (42.0-54.0); Hemoglobin 13.9 g/dL (14.0-18.0); Immature Granulocytes Abs Auto 0.05 10^3/uL (0.00-0.03); Immature Granulocytes Pct Auto 0.7 % (0.0-0.5); Lymphocytes Absolute Auto 1.5 10^3/uL (1.2-3.8); Lymphocytes Percent Auto 20.8 % (20.5-60.0); Mean Corpuscular Volume 84.5 fL (80.0-94.0); Mean Platelet Volume 9.5 fL (9.5-13.5); Monocytes Absolute Auto 1.2 10^3/uL (0.3-0.8); Monocytes Percent Auto 16.1 % (1.7-12.0); Neutrophils Absolute Auto 4.3 10^3/uL (1.4-6.5); Neutrophils Percent Auto 58.4 % (43.0-75.0); Platelet Count 176 10^3/uL (150-450); Red Blood Count 5.15 10^6/uL (4.70-6.10); Red Cell Distribution Width 16.9 % (11.0-15.0); White Blood Count 7.4 10^3/uL (4.0-11.0)
[2024-11-17 06:19] LABS: Anion Gap 9.1; BUN Creatinine Ratio 20.4; Calcium 8.7 mg/dL (8.5-10.1); Carbon Dioxide 30.7 mmol/L (21.0-32.0); Chloride 103 mmol/L (98-107); Estimated GFR (African America >60 (>=60 mL/min/1.73m^2); Estimated GFR (Non-African Ame >60 (>=60 mL/min/1.73m^2); Glucose 95 mg/dL (74-106); Potassium 3.8 mmol/L (3.5-5.1); Sodium 139 mmol/L (136-145)
[2024-11-17 06:24] LABS: INR 1.48; Prothrombin Time 15.1 sec (9.0-11.6)
--- NOTE | 2024-11-17 08:29 | PM.DS1 ---
DS: Providers Provider Date of admission: 11/14/24 12:31 Primary care physician: LACY VILLANUEVA Attending physician on admission: Ester Gallardo Consults: 11/14/24 12:32 Occupational Therapy Eval and Treat Routine Reason for consultation: leg pain, weakness Has provider been notified: No Physical Therapy Eval and Treat Routine Reason for consultation: leg pain, weakness Has provider been notified: No 11/15/24 08:51 Consult to Orthopedics Routine Consulting Provider: Barry Grewal Reason for consultation: Right knee pain, effusion, hematoma Has provider been notified: No 11/16/24 08:38 Physical Therapy Eval and Treat Routine Reason for consultation: few weeks of non weightbearing left leg with a walker Instructions:: A knee immobilizer or tall Cam boot on the left could be tried to see if would tolerate with walker with some weight bearing but if not ortho prefers NWB left leg to allow hematoma healing; CT negative for any fracture and hardware stable Discharging clinician: Ester Gallardo DS: Diagnosis Discharge Diagnosis (1) Supratherapeutic INR: (2) Traumatic ecchymosis of left lower leg: Qualifiers: Encounter type: initial encounter Qualified Code(s): S80.12XA - Contusion of left lower leg, initial encounter (3) Acute pain of left lower extremity: (4) Contusion of knee, left: Qualifiers: Encounter type: initial encounter Qualified Code(s): S80.02XA - Contusion of left knee, initial encounter (5) GERD (gastroesophageal reflux disease): Qualifiers: Esophagitis presence: without esophagitis Qualified Code(s): K21.9 - Gastro-esophageal reflux disease without esophagitis (6) Hypertension: Qualifiers: Hypertension type: primary hypertension Qualified Code(s): I10 - Essential (primary) hypertension (7) Atrial fibrillation: Qualifiers: Atrial fibrillation type: longstanding persistent Qualified Code(s): I48.11 - Longstanding persistent atrial fibrillation (8) Weakness of left leg: (9) Substance or medication-induced sleep disorder, daytime sleepiness type: DS: Summary Hospital Course Hospital Course: Patient is a 84 y.o white male with past medical history of A-fib on Coumadin therapy, GERD, HTN, HLD, insomnia and Alzheimer's dementia. Who was brought to the ER on 11/14/24 after having a fall several days ago but pain became more severe to the left knee and he was not able to walk. Left knee gives out on him making it difficult to walk. Patient follows with Dr. Bhatti who is also managing his INR. Last dose was given last evening of coumadin. Last INR check about 3 weeks ago. He has had prior fracture repair of that left leg with plate and screw per daughter. No prior knee surgery. Patient admits to pain in the area of the bruising. Discussed INR 5.6. He denies any bleeding issues currently. He is currently residing in habilitation assistant living at [facility]. Pain is localized to the left knee. INR 5.6, no spontaneous bleeding but in the setting of age and the extension of his traumatic ecchymosis will hold the aspirin and given 1mg of oral Vitamin K. Recheck INR daily. Aspirin and coumadin resumed on 11/15/24. Patient is now back on Home dosage of both. He will need INR check 5-7 days after discharge. Orthopedics was consulted and recommended Tall Cam Boot when weight bearing on the left leg along with walker for assistance. He as been tolerating well. CBC has remained stable, hemoglobin at the time of discharge is 13.0. Overall leg is improving. His pain has been controlled on [place]. He was having some sluggish BM's so would recommend continue bowel regimen of Miralax and docusate while on Narcotics. Vitals have been stable. His Dementia waxes and wanes with good days and bad days. Today is alert and answers questions. He had ultrasound of the LLE and CT of the left knee and LLE which showed stable hardware, no acute fractures and the hematoma with extension of soft tissue swelling. He is to follow up with Dr. Grewal in the outpatient setting in 1-2 weeks. Patient will be [facility]. He may resume all other home medications. Status at Discharge Functional status at discharge: uses cane/walker Overall status at discharge: patient is progressing back to baseline Time Spent with Patient Time attestation: Total time spent providing and/or coordinating discharge services: Time spent: greater than 30 minutes Exam Narrative Exam Narrative: General: Patient is alert, and oriented to person, proper hygiene Skin: large ecchymosis of the inner left leg that extends up the thigh and includes the knee joint, hematoma of the patellar region of the left leg with warmth with palpation of the left knee, joint. No calf swelling, no ankle swelling or foot swelling. No pain on the upper thigh, ecchymosis also seen in the medial aspect of the left leg but all are healing Head: atraumatic, acephalic Eyes: PERRLA, no nystagmus present, conjunctiva clear, no scleral icterus Ears: diminished gross auditory acuity Heart: irregular rhythm, normal rate, no murmurs/rubs/gallops Lungs: no audible wheezes, crackles and normal breath sounds all lung rolon Abdomen: Normal audible bowel sounds, no distension, No palpable masses, no organomegaly, no rebound/guarding/ or rigidity Neuro: CN II-X grossly intact Constitutional Vital Signs, click to edit/add: Last Vital Signs Temp 97.7 F 11/17/24 05:32 Pulse 70 11/17/24 05:32 Resp 18 11/17/24 05:32 BP 158/92 H 11/17/24 05:32 Pulse Ox 94 L 11/17/24 05:32 O2 Del Method Room Air 11/17/24 05:32 O2 Flow Rate 2 11/14/24 20:21 DS: Data Data Completed and Pending Labs on day of discharge: Labs from last 24 hours 11/17/24 11/16/24 05:50 20:42 WBC 7.4 RBC 5.15 Hgb 13.9 L Hct 43.5 MCV 84.5 MCH 27.0 MCHC 32.0 RDW 16.9 H Plt Count 176 MPV 9.5 Neut % (Auto) 58.4 Lymph % (Auto) 20.8 [place] % (Auto) 16.1 H Eos % (Auto) 3.6 Baso % (Auto) 0.4 Neut # (Auto) 4.3 Lymph # (Auto) 1.5 [place] # (Auto) 1.2 H Eos # (Auto) 0.3 Baso # (Auto) 0.0 Abs Immat Gran (auto) 0.05 H Imm/Tot Granulo (auto) 0.7 H PT 15.1 H INR 1.48 Sodium 139 Potassium 3.8 Chloride 103 Carbon Dioxide 30.7 Anion Gap 9.1 BUN 19.0 H Creatinine 0.93 Est GFR ( Amer) >60 Est GFR (Non-Af Amer) >60 BUN/Creatinine Ratio 20.4 Glucose 95 Calcium 8.7 Urine Color Lt. yellow Urine Clarity Clear Urine pH 6.5 Ur Specific [place] 1.010 Urine Protein Negative Urine Glucose (UA) Negative Urine Ketones Negative Urine Occult Blood Moderate A Urine Nitrite Negative Urine Bilirubin Negative Urine Urobilinogen 1.0 Ur Leukocyte Esterase Trace A Discharge Plan Discharge Disposition: Xfer SNF Condition: Fair Discharge Medications: New polyethylene glycol 3350 17 gram Powder In Packet 17 g PO QD PRN (Reason: Constipation) Qty: 0 0RF hydrocodone-acetaminophen 5-325 mg Tablet 1 tab PO Q8H PRN (Reason: Pain) 3 Days Qty: 9 0RF docusate sodium 100 mg Capsule 200 mg PO BID PRN (Reason: Constipation) Qty: 0 0RF Continued trazodone 50 mg tablet 50 mg PO BEDTIME atorvastatin 20 mg tablet 20 mg PO DAILY losartan-hydrochlorothiazide 50-12.5 mg tablet 0.5 tab PO DAILY omeprazole 20 mg capsule,delayed release(DR/EC) 20 mg PO DAILY cyanocobalamin (vitamin B-12) [Vitamin B-12] 1,000 mcg tablet 1,000 mcg PO DAILY aspirin 81 mg tablet,chewable 81 mg PO DAILY warfarin 4 mg tablet 4 mg PO .QSUMOWEFR@1700 warfarin 6 mg tablet 6 mg PO QTUTHSA Print Language: Swazi Activity Restrictions/Additional Instructions: wear tall cam walking boot on the left leg when weight bearing and use with walker Forms: Portal Instructions Follow Up Appointments: Follow up with Dr Grewal in [place] or [place] in 1-2 weeks after discharge Will need recheck INR in 5 days Discharge location: To [facility]
[2024-11-17 09:09] VITALS: BP 128/84; PULSE 79; TEMP 36.4; O2SAT 91
--- NOTE | 2024-11-17 09:16 | SWNOTE1 ---
SW received an email from [facility] [place] and pt is approved to go to rehab. BANDAR let nurse and doctor know.
[2024-11-17] MEDS: ATORVASTATIN CALCIUM 20 MG TABLET PO (10:27)
[2024-11-17] MEDS: LOSARTAN POTASSIUM 50 MG TABLET PO (10:27)
[2024-11-17] MEDS: HYDROCHLOROTHIAZIDE 25 MG TABLET 12.5 MG PO (10:27)
[2024-11-17] MEDS: ASPIRIN 81 MG TAB.CHEW PO (10:27)
--- NOTE | 2024-11-17 10:54 | SWNOTE1 ---
ABNDAR faxed [place] med rec to [facility].
--- NOTE | 2024-11-17 11:07 | PT.DAILY ---
Physical Therapy Daily Note PT Daily Note/Assess Start: 11/15/24 07:46 Freq: Status: Active Protocol: Document 11/17/24 11:00 [id number] (Rec: 11/17/24 11:07 [id number]) Physical Therapy Daily Note/Assessment Time In/Time Out Time In 09:52 Time Out 10:03 Pain In Pain N/A Pain Out Pain N/A Subjective Subjective Patient received supine in bed. Agreeable to work with PT, co-treat with OT. When patient is requested to provide a numerical pain rating. Responds the therapist is a pain. Therapeutic Exercise Time Therapeutic Exercise 3 Minutes (minutes) Therapeutic Exercise 0 Units Therapeutic Exercise Treatment Therapeutic Exercise Seated RENATA LE ther ex for strengthening x 10 reps. R Treatment LE ankle pumps, marching and LAQ's for AROM, L LE AAROM LAQ's and marching. MRE for RENATA hip ABD/ADD. Therapeutic Activity Time Therapeutic Activity 8 Minutes (minutes) Therapeutic Activity 1 Units Therapeutic Activity Treatment Bed Mobility Ability Moderate Assist Chair Transfer Moderate Assist,2 Person Assist Ability Therapeutic Activity All functional mobility required verbal cueing. Bed Comments mobility: supine to R sitting EOB is MOD A +1. Patient demonstrates posterior lean with RENATA UE support. MAX A +1 to natalie L boot. STS to 2WW is MOD A +2. Verbal cues for safe hand placement during transfer. Patient stood with primary WB on R. Pivot transfer for MIN to MOD A +2 to R. Stand to sit MIN to MOD A +2. Verbal cues for safe hand placement. Patient left in care of OT. Total Physical Therapy Time Total Therapy 11 Minutes Total Physical 1 Therapy Units Summary Daily Note Summary Patient demonstrates decreased safety awareness during transfers. Patient demonstrates improved functional mobility. Patient would benefit from SNF upon D/C to address functional deficits for return to PLOF.
--- NOTE | 2024-11-17 11:26 | CM.NOTE ---
Rounds made with Dr. Gallardo. Plan for discharge to [facility] today. Mr. Jeong informed.
--- NOTE | 2024-11-17 11:39 | SWNOTE1 ---
Called [facility] to set up transportation to the [facility]. They can tow picker at 12:45. SW notified nursing and the [facility] of tow picker time.
--- NOTE | 2024-11-17 11:57 | SWNOTE1 ---
SW spoke to daughter, Isabelle, and informed her of dc time to [facility].
--- NOTE | 2024-11-17 12:37 | PC.NURSE ---
report given to mahesh at [facility]. all questions answered
== END 2024-11-17 12:51 ==
LOC: ER 12:01 → MS 12:37
PROVIDERS: Registered Nurse; Admitting Provider Family Medicine; Emergency Provider Emergency Medicine; PCP Family Medicine; Visit Provider Family Medicine
DX: S80.12XA Contusion of left lower leg, initial encounter (principal); S80.02XA Contusion of left knee, initial encounter; W19.XXXA Unspecified fall, initial encounter; R79.1 Abnormal coagulation profile; M79.662 Pain in left lower leg; K21.9 Gastro-esophageal reflux disease without esophagitis; I10 Essential (primary) hypertension; I48.11 Longstanding persistent atrial fibrillation; R53.1 Weakness; T50.905A Adverse effect of unspecified drugs, medicaments and biological substances, initial encounter; G47.8 Other sleep disorders; Z95.1 Presence of aortocoronary bypass graft; Z87.891 Personal history of nicotine dependence; Z79.01 Long term (current) use of anticoagulants; Z79.899 Other long term (current) drug therapy; M79.672 Pain in left foot; E78.5 Hyperlipidemia, unspecified; G30.9 Alzheimer's disease, unspecified; F02.80 Dementia in other diseases classified elsewhere, unspecified severity, without behavioral disturbance, psychotic disturbance, mood disturbance, and anxiety
CPT/HCPCS: 36415; 51702; 51798; 70450; 73562; 73590; 73610; 73700; 76882; 80048; 80053; 81003; 82550; 84550; 85025; 85610; 85652; 86140; 93005; 96372; 96374; 96375; 97161; 97165; 97530; 97535; 99285; G0378; J1200; J2270; J2359; J3430

== ENCOUNTER 2025-05-05 12:37 | Emergency (ER) | payer MEDICARE, SELFPAY ==
[2025-05-05] VITALS (19 sets, daily range): BP systolic 114–127; BP diastolic 67–90; PULSE 61–83; TEMP 36.4; O2SAT 96–100; BMI 31.2
--- NOTE | 2025-05-05 12:43 | CT_ITS ---
The [address] [address] Patient Name: LACY GORDILLO MRN: [id number] date: 1940 Sex: M Assigned Patient Location: ED.MAIN Current Patient Location: ED.MAIN Accession/Order Number: [id number] Exam Date: 05/05/2025 13:08 Report Date: 05/05/2025 13:41 At the request of: MEE COY MD Procedure: CT head/brain wo con CT BRAIN WITHOUT CONTRAST: CLINICAL HISTORY: Altered mental status COMPARISON: CT brain 11/14/2024 TECHNIQUE: Contiguous axial unenhanced images were obtained through the brain. This CT exam was performed using one or more following dose reduction techniques: Automated exposure control, adjustment of the mA and/or kV according to patient size, or use of iterative reconstruction technique. FINDINGS: There is no evidence of midline shift, intra or extra-axial fluid collection, hemorrhage or CT evidence of stroke. Cortical atrophy with chronic microvascular ischemic changes. Posterior fossa appears unremarkable. Visualized intraorbital contents demonstrate no acute findings. Visualized paranasal sinuses are clear. The surrounding soft tissues are normal. CT/CT head/brain wo con IMPRESSION: NO ACUTE INTRACRANIAL ABNORMALITY. Impression dictated by: Juan Cotter Jr. D.OJulia 05/05/2025 1:41 PM Dictation Location: [place] [address] Electronically authenticated by: [id number] Y Date: 05/05/2025 13:41
--- NOTE | 2025-05-05 12:43 | ECG_ITS ---
The [facility] Test Date: 2025-05-05 Pat Name: LACY GORDILLO Department: Room: - Gender: Male Vp Software: : 1940 Requested By: [id number] Order Number: [id number] Reading MD: DOMINGO HERNANDEZ M.D. Measurements Intervals [place] Rate: 73 P: -[id number] TN: -[id number] QRS: 67 QRSD: 100 T: 13 QT: 400 QTc: 426 Interpretive Statements 94338 Atrial fibrillation with aberrant conduction, or ventricular premature complexes 2440 Incomplete right bundle branch block 3433 Septal myocardial infarction, probably old 8102 Low QRS voltage in chest leads 9150 abnormal ECG Compared to ECG 11/14/2024 07:29:10 Aberrant conduction of supraventricular beat(s) now present Low QRS voltage now present Myocardial infarct finding still present Electronically Signed On 05-05-2025 13:32:47 EST by DOMINGO HERNANDEZ M.D.
--- NOTE | 2025-05-05 12:43 | XR_ITS ---
The [address] [address] Patient Name: LACY GORDILLO MRN: [id number] date: 1940 Sex: M Assigned Patient Location: ER Current Patient Location: ED.MAIN Accession/Order Number: [id number] Exam Date: 05/05/2025 13:05 Report Date: 05/05/2025 13:37 At the request of: MEE COY MD Procedure: XR chest 1V Single view chest: CLINICAL HISTORY: Altered mental status COMPARISON: Chest 09/09/2021 FINDINGS: Heart appears a double normal in size. No consolidation pneumothorax pleural effusion or free air. XR/XR chest 1V IMPRESSION: NO ACUTE PROCESS. Impression dictated by: Juan Cotter Jr., D.OJulia 05/05/2025 1:37 PM Dictation Location: [place] [address] Electronically authenticated by: [id number] Y Date: 05/05/2025 13:37
--- NOTE | 2025-05-05 12:46 | ED_ITS ---
HPI HPI - General Adult General Chief complaint: Altered Mental Status Stated complaint: ALTERED MENTAL STATUS Time Seen by Provider: 05/05/25 12:40 Source: patient and other Source information: EMS Mode of arrival: ambulance Limitations: no limitations History of Present Illness HPI narrative: 84-year-old male presents to the emergency department for medical evaluation. He lives in assisted living and has a history of dementia. He seems to be more confused than typical. He reportedly passed out in his room, self-reported by him. The patient however is not oriented and is not considered an accurate historian. No history of any injury. Related Data Home Medications ?Medication ?Instructions ?Recorded ?Confirmed atorvastatin 20 mg tablet 20 mg PO DAILY 11/14/2403/02 cyanocobalamin (vitamin B-12) 1,000 mcg PO DAILY 11/1411/14/24 1,000 mcg tablet (Vitamin B-12) losartan 50 mg-hydrochlorothiazide 0.5 tab PO DAILY 11/15/24 12.5 mg tablet omeprazole 20 mg capsule,delayed 20 mg PO DAILY 11/14/24 release trazodone 50 mg tablet 50 mg PO BEDTIME 11/14/24 aspirin 81 mg chewable tablet 81 mg PO DAILY 11/15/24 11/15/24 warfarin 4 mg tablet 4 mg PO .QSUMOWEFR@1700 11/0611/15/24 warfarin 6 mg tablet 6 mg PO QTUTHSA 11/15/2404/01 Previous Rx's ?Medication ?Instructions ?Recorded docusate sodium 100 mg capsule 200 mg (2 x 100 mg) PO BID PRN 11/17/24 Constipation #0 caps hydrocodone 5 mg-acetaminophen 325 1 tab PO Q8H PRN Pa in 3 days #9 11/17/24 mg tablet tabs polyethylene glycol 3350 17 gram 17 g PO QD PRN Consti pation #0 ea 11/17/24 oral powder packet Allergies Allergy/AdvReac Type Severity Reaction Status Date / Time No Known Drug Allergies Allergy Verified 05/05/25 12:43 Opioid HPI Opioid Management Most Recent Opioid Data: Last Pain Scale 8 11/16/24, 08:08 Last Pain Intensity 2 11/15/24, 07:47 Last ORT Total Score 0 11/14/24, 12:55 Last ORT Risk Category Low Risk 11/14/24, 12:55 Ur Phencyclidine Scrn, (NEGATIVE) Negative , 19:15 Review of Systems ROS Narrative Not obtainable, dementia PFSH [facility] Medical History (Updated 05/05/25 @ 15:06 by Joe Tate MD) GERD (gastroesophageal reflux disease) ?K21.9 - Gastro-esophageal reflux disease without esophagitis (ICD-10) Hypertension ?I10 - Essential (primary) hypertension (ICD-10) Glaucoma ?H40.9 - Unspecified glaucoma (ICD-10) Atrial fibrillation ?I48.91 - Unspecified atrial fibrillation (ICD-10) Surgical History 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 Smoking status: Former smoker Non-prescribed substance use: denies use Previous occupational history: Retired Highest level of school completed/degree received: high school graduate Little interest or pleasure in doing things: not at all Feeling down, depressed, or hopeless: not at all Feel stressed/tense/nervous/anxious/difficulty sleeping: not at all Exam Narrative Exam Narrative: Nurses note and vital signs reviewed General:The patient appears well and in no apparent distress.Patient is resting comfortably on cart. Skin:Warm, dry, no pallor noted.There is no rash noted. Head:Normocephalic, atraumatic Eye: Normal conjunctiva, no drainage Ears, Nose, Mouth, and Throat: oral mucosa is moist. Nares patent. Cardiovascular:Regular Rate and Rhythm Respiratory:Patient is in no distress, no accessory muscle use, lungs are clear to auscultation, no wheezing, rales or rhonchi Back:non-tender GI: Soft and nontender Musculoskeletal: The patient has no evidence of calf tenderness, no pitting edema, symmetrical pulses noted bilaterally Neurological: Awake and alert. He is oriented to self. He is not oriented to place or year or why he is here. Upper and lower extremity strength is intact and symmetric Psychiatric:Cooperative Constitutional Vital Signs, click to edit/add: Last Vital Signs Temp 97.6 F 05/05/25 12:38 Pulse 71 05/05/25 12:38 Resp 14 05/05/25 12:38 BP 114/80 05/05/25 12:38 Pulse Ox 98 05/05/25 12:38 O2 Del Method Room Air 05/05/25 12:38 Course Vital Signs Vital signs: Vital Signs Temperature 97.6 F 05/05/25 12:38 Pulse Rate 71 05/05/25 12:38 Respiratory Rate 14 05/05/25 12:38 Blood Pressure 114/80 05/05/25 12:38 Pulse Oximetry 98 05/05/25 12:38 Oxygen Delivery Method Room Air 05/05/25 12:38 Temperature 97.6 F 05/05/25 12:38 Pulse Rate 71 05/05/25 12:38 Respiratory Rate 14 05/05/25 12:38 Blood Pressure 114/80 05/05/25 12:38 Pulse Oximetry 98 05/05/25 12:38 Oxygen Delivery Method Room Air 05/05/25 12:38 Medical Decision Making MDM Narrative Medical decision making narrative: His workup is negative. Family has concerns about him's being at an assisted living facility. We have involved director of social media marketing who is interviewed the family including the decision maker and at this point the patient does not require admission in the hospital. He will be discharged and director of social media marketing will follow-up with appropriate placement. Differential Diagnosis Differential Diagnosis: Dementia, UTI, pneumonia Lab Data Lab results reviewed: Yes I reviewed the patient's lab results Labs: Lab Results 05/05/25 05/05/25 Range/Units 12:55 14:15 WBC 4.3 (4.0-11.0) 10^3/uL RBC 5.08 (4.70-6.10) 10^6/uL Hgb 13.5 L (14.0-18.0) g/dL Hct 43.4 (42.0-54.0) % MCV 85.4 (80.0-94.0) fL MCH 26.6 (25.9-34.0) pg MCHC 31.1 (29.9-35.2) g/dL RDW 16.3 H (11.0-15.0) % Plt Count 134 L (150-450) 10^3/uL MPV 10.5 (9.5-13.5) fL Neut % (Auto) 53.9 (43.0-75.0) % Lymph % (Auto) 28.5 (20.5-60.0) % [place] % (Auto) 12.7 H (1.7-12.0) % Eos % (Auto) 3.2 (0.9-7.0) % Baso % (Auto) 1.2 (0.2-2.0) % Neut # (Auto) 2.3 (1.4-6.5) 10^3/uL Lymph # (Auto) 1.2 (1.2-3.8) 10^3/uL [place] # (Auto) 0.6 (0.3-0.8) 10^3/uL Eos # (Auto) 0.1 (0.0-0.7) 10^3/uL Baso # (Auto) 0.1 (0.0-0.1) 10^3/uL Abs Immat Gran (auto) 0.02 (0.00-0.03) 10^3/uL Imm/Tot Granulo (auto) 0.5 (0.0-0.5) % Sodium 139 (136-145) mmol/L Potassium 3.6 (3.5-5.1) mmol/L Chloride 105 (98-107) mmol/L Carbon Dioxide 29.0 (21.0-32.0) mmol/L Anion Gap 8.6 BUN 15.0 (7.0-18.0) mg/dL Creatinine 0.91 (0.70-1.30) mg/dL Est GFR ( Amer) >60 (>=60 mL/min/1.73m^2) Est GFR (Non-Af Amer) >60 (>=60 mL/min/1.73m^2) BUN/Creatinine Ratio 16.5 Glucose 144 H (74-106) mg/dL Calcium 8.4 L (8.5-10.1) mg/dL Urine Color Yellow (YELLOW) Urine Clarity Clear (CLEAR) Urine pH 5.5 (5.0-9.0) Ur Specific [place] 1.025 (1.005-1.025) Urine Protein Negative (NEG/TRACE) mg/dL Urine Glucose (UA) Negative (NEGATIVE) mg/dL Urine Ketones Negative (NEGATIVE) mg/dL Urine Occult Blood Negative (NEGATIVE) Urine Nitrite Negative (NEGATIVE) Urine Bilirubin Negative (NEGATIVE) Urine Urobilinogen 0.2 (0.2-1.0) EU/dL Ur Leukocyte Esterase Negative (NEGATIVE) Urine RBC None seen (0-2) #/HPF Urine WBC 0-2 A (NONE SEEN) #/HPF Ur Squamous Epith Cells Rare (NONE/RARE) #/LPF Urine Crystals None seen (None Seen) #/HPF Urine Bacteria Trace A (NONE SEEN) #/HPF Urine Casts None seen (NONE SEEN) #/LPF Urine Mucus None seen (NONE SEEN) Imaging Data Chest x-ray: Radiologist's impression: ITS Impressions Chest X-Ray 05/05/25 12:43 IMPRESSION: NO ACUTE PROCESS. Impression dictated by: Juan Cotter Jr., D.O. 05/05/2025 1:37 PM Dictation Location: [place] Electronically authenticated by: [id number] Y Date: 05/05/2025 13:[address] 05/05/25 12:43 IMPRESSION: NO ACUTE INTRACRANIAL ABNORMALITY. Impression dictated by: Juan Cotter Jr., D.O. 05/05/2025 1:41 PM Dictation Location: [place] Electronically authenticated by: [id number] Y Date: 05/05/2025 13:41 ECG Data Attestation: I personally reviewed and interpreted this ECG as follows: (EKG on my interpretation shows atrial fibrillation with a rate of 73. He has a history of atrial fibrillation.) Discharge Plan Discharge Chief Complaint: Altered Mental Status Clinical Impression: Dementia Patient Disposition: Home, Self-Care Time of Disposition Decision: 15:06 Condition: Good Mode of Transportation: Private Vehicle Prescriptions / Home Meds: No Action trazodone 50 mg tablet 50 mg PO BEDTIME atorvastatin 20 mg tablet 20 mg PO DAILY losartan-hydrochlorothiazide 50-12.5 mg tablet 0.5 tab PO DAILY omeprazole 20 mg capsule,delayed release(DR/EC) 20 mg PO DAILY cyanocobalamin (vitamin B-12) [Vitamin B-12] 1,000 mcg tablet 1,000 mcg PO DAILY aspirin 81 mg tablet,chewable 81 mg PO DAILY warfarin 4 mg tablet 4 mg PO .QSUMOWEFR@1700 warfarin 6 mg tablet 6 mg PO QTUTHSA polyethylene glycol 3350 17 gram Powder In Packet 17 g PO QD PRN (Reason: Constipation) Qty: 0 0RF hydrocodone-acetaminophen 5-325 mg Tablet 1 tab PO Q8H PRN (Reason: Pain) 3 Days Qty: 9 0RF docusate sodium 100 mg Capsule 200 mg PO BID PRN (Reason: Constipation) Qty: 0 0RF Print Language: Armenian Instructions: Dementia (ED) Referrals: LACY VILLANUEVA [Physician, Family Practice] - 1 week
--- NOTE | 2025-05-05 12:53 | PC.NURSE ---
Pt presents to ER from [facility] via EMS Per EMS report pt has a recent diagnosis of dementia and is getting worse [facility] staff told EMS that he had come out to their desk and reported that he had passed out in his room EMS reports to this nurse that patient ambulates but is unsteady on his feet On arrival patient does not know why he is here Pt can follow commands Pt does not know his birthday, location, date or time Alert only to self
--- OUTSIDE RECORDS SUMMARY | 2025-05-05 12:58 | XMS_ITS | Clinical Summary ---
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)Take 1 tablet (50 mg) by mouth at bedtime 30 tablet 11001/18/2024ctive Omeprazole 20 MG tablet delayed-release Take 20 mg by mouth Daily12/22/2023ctive cyanocobalamin (Vitamin B-12) 1000 MCG tablet Take 1,000 mcg by mouth DailyActive losartan-hydroCHLOROthiazide (Hyzaar) 50-12.5 MG tablet Indications:LVH (left ventricular hypertrophy),Localized edemaTake 1 tablet by mouth Daily 90 tablet 4Active latanoprost (Xalatan) 0.005 % ophthalmic solution Indications:Primary open angle glaucoma (POAG) of both eyes, moderate stage Administer 1 drop into both eyes at bedtime 2.5 mL 5Active warfarin (Coumadin) 4 MG tablet Indications:Paroxysmal atrial fibrillation (HCC)Take 1 tablet (4 mg) by mouth See administration instructions 4 mg daily, except for Thursday. Dosechanges frequently.5Active warfarin (Coumadin) 6 MG tablet Indications:Paroxysmal atrial fibrillation (HCC)Take 1 tablet (6 mg) by mouth See administration instructions Take 3 mg on Saturdays. Dosing changes frequently.5Active aspirin 81 MG EC tablet Take 81 mg by mouth DailyActive LORazepam (Ativan) 0.5 MG tablet Take by mouth every 12 (twelve) hours if needed for anxietyActive Active Problems ProblemNoted DateDiagnosed DateChronic diastolic (congestive) heart failure 04/17/2025Paroxysmal atrial /31/2025Primary cagwjhmwbvao25/31/2025 Disability of xaipwdv3501/05/2025Gastroesophageal reflux mtzxmks2101/05/2025 Insomnia, ybjmgmnrmuo91/31/2025nticoagulant long-term use07/04/2024MI 31.0-31.9,adult02/29/20246048Yhtsdijuqyldbr73/23/2024Iron deficiency anemia 02/29/2024Low mean corpuscular volume (MCV)02/29/2024Moderate late onset 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 disturbance, psychotic disturbance, mood disturbance, or rvmtzeo6202/17/2024LVH (left ventricular hypertrophy)02/17/2024 Localized edema02/17/20242711Tplwni25/04/9393Z07 bhyglfytqn32/04/2024ntral erosion 02/10/2024ameron ulcer02/10/20240865Ijbgjvsroftupi94/04/2024Old cerebrovascular accident (CVA) without late adaqwa0102/10/2024rimary osteoarthritis of left ankle 02/10/2024rimary open angle glaucoma (POAG) of both eyes, moderate stage 07/24/2023Murmur, heart06/19/2023AD (coronary artery disease)01/24/2023Former ezqcea2701/24/2023High risk medication use01/24/2023History of coronary artery bypass graft01/24/2023 Resolved Problems ProblemNoted DateDiagnosed DateResolved HzonWuns11Upper GI bleedlosed head jjdsox85Hx of percutaneous transluminal coronary jlguxwlmvyo97History of ischemic izqttg64Metabolic /31/310853/ Contusion of left kneeontusion of lower leg01/05/2025 01/05/2025ute rsdliyjavgqmps86Hypertensive xrxfcct2502/29/2024 01/05/2025 Encounters DateTypeDepartmentCare UahhVmrqzktirln35/11/2025bstract [facility] [address] [place] [address] Tyson Bhatti MD 04/17/2025 1:00 PM ESTOffice Visit [facility] [address] [place] [address] Kusum Saucedo, PA Paroxysmal atrial fibrillation (HCC) (Primary Dx); Anticoagulant long-term use; Chronic diastolic (congestive) heart failure (HCC)04/17/2025amboo flowsheet [facility] [address] [place] [address] Kusum Saucedo PA 04/17/20259303Liqzvp93/22/2025bstract [facility] [address] [place] [address] Tyson Bhatti MD 03/27/2025 1:00 PM EDTOffice Visit [facility] [address] [place] [address] Kusum Saucedo PA Paroxysmal atrial fibrillation (HCC) (Primary Dx); Anticoagulant long-term use; Primary elglpxtoyqyh43/20/2025amboo flowsheet [facility] [address] [place] [address] Kusum Saucedo PA 03/27/20257313Hfjbji89/14/2025bstract [facility] [address] [place] [address] Tyson Bhatti MD 03/21/2025bstract [facility] [address] [place] [address] Tyson Bhatti MD 03/07/2025bstract [facility] [address] [facility] [address] [place] [address] Tyson Bhatti MD 02/28/2025bstract [facility] [address] [facility] [address] [place] [address] Tyson Bhatti MD 02/23/2025 1:00 PM EDTOffice Visit [facility] [address] [place] [address] Kusum Saucedo PA Paroxysmal atrial fibrillation (HCC) (Primary Dx); Anticoagulant long-term use02/23/2025amboo flowsheet [facility] [address] [place] [address] Kusum Saucedo PA 02/23/20255252Njngwj72/15/2025Refill [facility] [address] [place] [address] Tyson Bhatti MD Primary open angle glaucoma (POAG) of both eyes, moderate stage (Primary Dx) 02/09/2025bstract [facility] [address] [place] [address] Tyson Bhatti MD 02/09/2025bstract [facility] [address] [place] [address] Tyson Bhatti MD from Last 3 Months Immunizations ImmunizationAdministration DatesNext EjfBsid2011/02/2024 Family History RelationNameStatusCommentsFatherDeceasedMotherDeceased Social History Tobacco UseTypesPacks/DayYears UsedDateSmoking Tobacco: FormerCigarettes Smokeless Tobacco: Never Tobacco Cessation:Counseling Given: Yes Alcohol UseStandard Drinks/WeekCommentsDefer0 (1 standard drink = 0.6 oz pure alcohol)PHQ-2AnswerDate RecordedPatient Health Questionnaire-2 Zhglt951/03/2025 Sex and Gender InformationValueDate RecordedSex Assigned at BirthNot on file Legal ShgEzpo6210/06/2022 8:34 PM EDTGender IdentityNot on fileSexual Orientation Not on file Last Filed Vital Signs Vital SignReadingTime TakenCommentsBlood Ylttbneh021/8404/17/2025 1:07 PM EST Dkmnk288604/17/2025 1:07 PM ESTTemperature--Respiratory Hdzh568006/17/2024 1:07 PM ESTOxygen Yvplsutbkg21%04/17/2025 1:07 PM ESTInhaled Oxygen Concentration-- Kfwcyy039 kg (237 lb 3.2 oz)04/17/2025 1:07 PM QDZEckrbr909.9 cm (6')04/17/2025 1:07 PM ESTBody Mass Index32.17106/17/2024 1:07 PM EST Plan of Treatment DateTypeDepartmentCare Team (Latest Contact Info)Ltdudnpdzxk54/17/2025 1:00 PM ESTOffice Visit [facility] [address] [facility] [address] [place] [address] Kusum Saucedo PA [address] [facility] [address] [place] [address] Health MaintenanceDue DateLast DoneCommentsPneumococcal Vaccine: 65+ Years (1 of 2 - PCV)2COVID-19 Vaccine (2024- season)2025Influenza SgrjpkdHypmdtljf22/21/2025 Procedures Procedure NamePriorityDate/TimeAssociated DiagnosisCommentsPOCT PROTIME-INR, AEGOKQUKPAUWgiszgb74/10/2025 1:07 PM EST Paroxysmal atrial fibrillation (HCC) POCT PROTIME-INR, PWAZQMTLRSRXlukfbn50/20/2025 1:03 PM EDT Paroxysmal atrial fibrillation (HCC) POCT PROTIME-INR, NNJWGFTDXNMDsehqtu56/18/2025 1:09 PM EDT Paroxysmal atrial fibrillation (HCC) from Last 3 Months Results * POCT Protime-INR, fingerstick docked device (04/17/2025 1:07 PM EST) Only the most recent of3 resultswithin the time period is included. ComponentValueRef RangeTest MethodAnalysis TimePerformed AtPathologist Signature RESULTS2.7Specimen (Source)Anatomical Location / LateralityCollection Method / VolumeCollection TimeReceived TimeBloodVenous blood specimen / Kbdsqct4904/17/2025 1:07 PM EST Narrative Authorizing ProviderResult TypeResult StatusKusum Saucedo PAPOINT OF CARE TEST ENTER/EDIT ORDERABLESFinal Result from Last 3 Months Insurance Advance Directives TypeDate RecordedPatient RepresentativeExplanationPower of Attorney02/24/2024 1:45 PMSTATE OF [place] POWER OF T[place] OFFICER Care Teams Team MemberRelationshipSpecialtyStart DateEnd Date Tyson Bhatti MD [address] [facility] [address] [place] [address] PCP - GeneralInternal Orvmvwmc06/27/24 Mike Pretty DO [address] [place] [address] Referring PhysicianNeurology10/03/24
--- OUTSIDE RECORDS SUMMARY | 2025-05-05 12:58 | XMS_ITS | Patient Health Record ---
Author Organization [facility] Address [address] [place] [address] Care Team Providers Care Speck Dyer Name Role Phone Sally Paris Unavailable Reason For Referral No Information Problems Problem Type SNOMED Code ICD Code Onset Dates Problem Status W/U Status Risk Notes Problem Walking disability (915255429) Unable to ambulate (R26.2) ActiveconfirmedProblemContusion of lower leg (72242349)Contusion of left lower extremity, initial encounter (S80.12XA)ActiveconfirmedProblemContusion of left knee (39884398121217018)Contusion of left knee, initial encounter (S80.02XA) Activeconfirmed Encounters Encounter Location Date Provider Diagnosis [facility] [address] [place] [address] 11/15/2024 Sally Paris Contusion of left lower extremity, initial encounter S80.12XA ; Contusion of left knee, initial encounter S80.02XA and Unable to ambulate R26.2 Assessments Encounter Date Diagnosis (ICD Code) Assessment Notes Treatment Notes Treatment Clinical Notes Section Notes 11/15/2024 Contusion of left knee, initial encounter (ICD-10 - S80.02XA) 11/15/2024ontusion of left lower extremity, initial encounter (ICD-10 - S80.12XA)11/15/2024Unable to ambulate (ICD-10 - R26.2) Plan Of Treatment No Information Insurance Providers Payer Name Payer Address Payer Phone Subscriber Number Group Number Insured Name Patient Relationship to Insured Coverage Start Date Coverage End Date Medicare [place] [employer] [address] [place] [id number] [facility] Emigdio Jeong III Self - patient is the insured 5
--- OUTSIDE RECORDS SUMMARY | 2025-05-05 12:58 | XMS_ITS | Clinical Summary ---
Author Organization [facility] Address [address] [place] [address] Phone Care Team Providers Care Dinkey Brakeman Name Role Phone Generic Provider, No Assigned Pcp MD Primary Car e Provider Unavailable Allergies No known active allergies Medications MedicationSigDispense QuantityRefillsLast FilledStart DateEnd DateStatus warfarin (Coumadin) 2 mg tablet Take 3 tablets (6 mg) by mouth 3 times a week. ON Thursday AND THURSDAY. TAKE 2 TABLETS (4 MG) ORALLY ALL OTHER DAYS OR DIRECTED. PER [facility] [place] Coumadin Civolp6211/07/2020ctive atorvastatin (Lipitor) 20 mg tablet Indications:Coronary artery disease involving mechoopda coronary artery of mechoopda heart without angina pectorisTake 1 tablet (20 mg) by mouth once daily. 30 tablet 1104Active Active Problems ProblemNoted DateDiagnosed DateMurmur, heart06/19/2023AD (coronary artery disease)01/24/2023History of coronary artery bypass graft01/24/2023History of PTCA01/24/2023ermanent atrial xjmzrorxyaac86/19/2023lass 1 obesity with body mass index (BMI) of 31.0 to 31.9 in adult01/24/2023Former pqfxuu0101/24/2023High risk medication use01/24/2023 Family History Medical HistoryRelationNameCommentsHypertensionFatherheart problemFatherheart problemMotherBreast cancerSisterRelationNameStatusCommentsFatherMotherSister Social History Tobacco UseTypesPacks/DayYears UsedDateSmoking Tobacco: FormerCigarettes Smokeless Tobacco: NeverAlcohol UseStandard Drinks/WeekCommentsNever0 (1 standard drink = 0.6 oz pure alcohol)Sex and Gender InformationValueDate RecordedSex Assigned at BirthNot on fileLegal VmqSgjn22/25/2022 9:52 PM EST Gender IdentityNot on fileSexual OrientationNot on file Last Filed Vital Signs Vital SignReadingTime TakenCommentsBlood Sttmderr123/8407/22/2023 10:45 AM EST Bipaz5444 1:20 PM ESTTemperature--Respiratory Rate--Oxygen Saturation-- Inhaled Oxygen Concentration--Lllqze21.8 kg (220 lb)07/22/2023 10:45 AM EST Rjhnmi756.9 cm (6')07/22/2023 10:45 AM ESTBody Mass Index29.8407/22/2023 10:45 AM EST Plan of Treatment Health MaintenanceDue DateLast DoneCommentsMedicare Annual Wellness Visit (AWV) 3Pneumococcal Vaccine (1 of 2 - PCV)2DTaP/Tdap/Td Vaccines (1 - Tdap)1964Zoster Vaccines (1 of 2)1992RSV High Risk: (Elderly (60+) or Population) (1 - 1-dose 75+ series)2017Lipid Panel05/24/2024 05/24/2019, 11/24/2018Influenza Vaccine (#1)5COVID-19 Vaccine (1 - season)2025HIB VaccinesAged OutNo longer eligible based on patient's age to complete this topicHPV VaccinesAged OutNo longer eligible based on patient's age to complete this topicHepatitis A VaccinesAged OutNo longer eligible based on patient's age to complete this topicHepatitis B VaccinesAged OutNo longer eligible based on patient's age to complete this topicIPV Vaccines Aged OutNo longer eligible based on patient's age to complete this topic Meningococcal VaccineAged OutNo longer eligible based on patient's age to complete this topicRotavirus VaccinesAged OutNo longer eligible based on patient's age to complete this topic Procedures Procedure NamePriorityDate/TimeAssociated DiagnosisCommentsLIPID PANELRoutine 05/24/2019 10:45 AM EST from Last 3 Months or Most Recently Relevant to Health Maintenance Results * (ABNORMAL) Lipid Panel (05/24/2019 10:45 AM EST)ComponentValueRef RangeTest MethodAnalysis TimePerformed AtPathologist GapowlksqFjinsmcjxdh319(H)0 - 199 mg/dLJOE [facility] LABComment: . ?AGE ?DESIRABLE ?? BORDERLINE HIGH ?? HIGH 0-19 Y 0 - 169 170 - 199 >/= 200 20-24 Y 0 - 189 190 - 224 >/= 225 >24 Y 0 - 199 200 - 239 >/= 240 All ranges are based on fasting samples. Specific therapeutic targets will vary based on patient-specific cardiac risk. . Pediatric guidelines reference:Pediatrics 2011, 128(S5). Adult guidelines reference: NCEP ATPIII Guidelines, ??HA 2001, 258:2486-97 . Venipuncture immediately after or during the administration of Metamizole may lead to falsely low results. Testing should be performed immediately prior to Metamizole dosing. HDL46.0mg/dLJOE DIM[facility]ILDR[facility] LABComment: . ?AGE ?VERY LOW ?? LOW ? NORMAL ?HIGH ?? 0-19 Y < 35 < 40 40-45 ---- 20-24 Y ---- < 40 >45 ---- >24 Y ---- < 40 40-60 >60 . Cholesterol/HDL Ratio4.4[facility] LABComment: REF VALUES DESIRABLE < 3.4 HIGH RISK > 5.0 MUY054(H)0 - 99 mg/dLJO[facility] LABComment: . ? NEAR ?BORD ?AGE ?DESIRABLE ??OPTIMAL ?HIGH ? HIGH ? VERY HIGH 0-19 Y 0 - 109 --- 110-129 >/= 130 ---- 20-24 Y 0 - 119 --- 120-159 >/= 160 ---- >24 Y 0 - 99 100-129 130-159 160-189 >/=190 . CRWE319 - 40 mg/dLJO[facility] EWRXpolgjohtwgbu4063 - 149 mg/dLJO[facility] LABComment: . ?AGE ?DESIRABLE ?? BORDERLINE HIGH ?? HIGH ? VERY HIGH 0 D-90 D ?19 - 174 ? ---- ? ---- ?---- 91 D- 9 Y 0 - 74 [...] be performed immediately prior to Metamizole dosing. Specimen (Source)Anatomical Location / LateralityCollection Method / Volume Collection TimeReceived Time05/24/2019 10:45 AM EST05/24/2019 5:28 PM EST Narrative Authorizing ProviderResult TypeResult StatusWishaina HURD BLOOD ORDERABLESFinal ResultPerforming OrganizationAddressCity/State/ZIP CodePhone Number [facility] from Last 3 Months or Most Recently Relevant to Health Maintenance Insurance Care Teams Team MemberRelationshipSpecialtyStart DateEnd Date Generic Provider, No Assigned PcpMD PCP - General07/09/23
--- OUTSIDE RECORDS SUMMARY | 2025-05-05 12:58 | XMS_ITS | Clinical Summary ---
Author Organization [employer] Address [facility] [id number] [address] [place] [address] Care Team Providers Care Operating Room Tech Name Role Phone Emigdio Roland Primary Care Provider [phone] Allergies No known active allergies Medications MedicationSigDispense QuantityRefillsLast FilledStart DateEnd DateStatus rivaroxaban (XARELTO) 20 mg tablet tablet Take 20 mg by mouth Daily at 0600.Active timolol (TIMOPTIC) 0.5 % ophthalmic solution Indications:angle-closure glaucoma1 drop 2 (two) times a day.Active niacin (VITAMIN B3) 500 mg tablet Take 500 mg by mouth daily with breakfast.Active cholecalciferol, vitamin D3, (VITAMIN D3) 1,000 unit capsule Take 1,000 Units by mouth daily.Active pyridoxine, vitamin B6, (vitamin B-6) 100 mg tablet Take 100 mg by mouth daily.Active cyanocobalamin (vitamin B-12) 500 MCG tablet Take 500 mcg by mouth daily.Active Family History Medical HistoryRelationNameCommentsHeart diseaseFatherHeart diseaseMotherCancer Sister 3RelationNameStatusCommentsBrotherAliveFatherDeceasedMotherDeceasedSister 1AliveSister 2AliveSister 3Deceased Social History Tobacco UseTypesPacks/DayYears UsedDateSmoking Tobacco: Never AssessedChildcare AnswerDate XhqcnkuqNweiudwucCtxiynu54/12/2019EmploymentAnswerDate Recorded UhnvponenxEqwxuuc14/12/2019Purpose - LifeAnswerDate RecordedPurpose and direction in wqgwJjzcecn15/11/2021Sex and Gender InformationValueDate Recorded Sex Assigned at BirthNot on fileLegal UgpCipp4901/11/2015 12:01 PM EDTGender IdentityNot on fileSexual OrientationNot on file Last Filed Vital Signs Vital SignReadingTime TakenCommentsBlood Tpzxmjxy606/8604 8:01 AM EDT Ulwtf340609/09/2017 8:01 AM EDTTemperature--Respiratory Rate--Oxygen Saturation-- Inhaled Oxygen Concentration--Lgdlah332.6 kg (235 lb)09/09/2017 8:01 AM EDT Jasmlm715.9 cm (6')09/09/2017 8:01 AM EDTBody Mass Index31.8709/09/2017 8:01 AM EDT Plan of Treatment Not on file Medical Devices Not on file Insurance Care Teams Team MemberRelationshipSpecialtyStart DateEnd Emigdio Pereyra DO [facility]07/23/17
--- OUTSIDE RECORDS SUMMARY | 2025-05-05 12:59 | XMS_ITS | CCD ---
Author Organization [facility] Providers Care Staff Analyst Name Role Phone GAO, BEJARANO Unavailable Unavailable HOUSE, EMIGDIO Unavailable Unavailable GAO, BEJARANO Unavailable Unavailable HOUSE, EMIGDIO Unavailable Unavailable GAO, BEJARANO Unavailable Unavailable HOUSE, EMIGDIO Unavailable Unavailable GAO, BEJARANO Unavailable Unavailable HOUSE, EMIGDIO Unavailable Unavailable GAO, BEJARANO Unavailable Unavailable HOUSE, EMIGDIO Unavailable Unavailable Rich, Emigdio P Unavailable Unavailable Unavailable Yelena Puri Unavailable Dr. Emigdio Villanueva Primary Care Unava ilable Fletcher Ziegler II Referring Unavailable Sravanthi ROSARIO, Fletcher Attending Unavailable Dusty Andrews Unavailable Rosalia Peres Unavailable RICH, DR HOUSE Admitting Unavailable CANADA, DR HOUSE Attending Unavailable CANADA, DR HOUSE Primary Care Unavailable CANADA, DR HOUSE Consulting Unavailable Mishel Street Unavailable [place] Emigdio DURAN Primary Care Provider DO Emigdio Villanueva Primary Care Provider MD Fletcher Ziegler Attending Provider Generic Provider , No Assigned Pcp Primary Car e Provider Unavailable FLETCHER ZIEGLER Referring Unavailable DO Emigdio Villanueva Primary Care Provider DO Malik Perez Emergency Provider Unavai MD Marino Douglass Admit Provider MD Marino Acuña Attending Provider [phone] DO Felipe Lopez Other Provider MD Nadiya Hagan Attending Provider Emigdio Villanueva MD Primary Care Provider FLETCHER ZIEGLER Attending Unavailable RICH, EMIGDIO Lazo Primary Care Unavailable Tyson Bhatti MD Primary Care Provider Sukhwinder DURAN Christopher Unavailable Josue Leigh DO Emergency Provider [phone] Tyson Bhatti II Primary Care Provider [phone] Sukhwinder DURAN Christopher Unavailable [phone] Chaim SAMUEL-C, Isabelle Marino Attending Provider RICH, EMIGDIO Lazo Primary Care Unavailable HOUSE, DO EMIGDIO P Attending Unavailable HOUSE, DO EMIGDIO P Admitting Unavailable HOUSE, EMIGDIO P Primary Care Unavailable HOUSE, DO EMIGDIO P Attending Unavailable HOUSE, DO EMIGDIO P Admitting Unavailable HOUSE, EMIGDIO P Primary Care Unavailable HOUSE, DO EMIGDIO P Attending Unavailable Sukhwinder DURAN, Christopher Unavailable Sukhwinder DURAN, Christopher Unavailable Isabelle Rucker Attending Unavailable Isabelle Rucker Admitting Unavailable Tyson Bhatti Primary Care Unavailable Josue Leigh Attending Unavailable Josue Leigh Admitting Unavailable Tyson Bhatti Primary Care Unavailable Tyson Bhatti II Primary Care Provider [phone] Kacy Pretty DO Attending Provider Sukhwinder DO, Christopher Unavailable [phone] TYSON BHATTI Attending Unavailable HEMKUSUM SMITH Attending Unavailable TYOSN BHATTI B Attending Unavailable TYSON BHATTI B Attending Unavailable KACY PRETTY Attending Unavailable TYSON BHATTI Attending Unavailable TYSON BHATTI Attending Unavailable TYSON BHATTI Attending Unavailable HEMMERKUSUM Attending Unavailable HEMMERKUSUM Attending Unavailable HEMMERKUSUM M Attending Unavailable HEMMER, KUSUM M Attending Unavailable HEMMER, KUSUM Arellano Attending Unavailable HEMMER, KUSUM M Attending Unavailable HEMMER, KUSUM M Attending Unavailable FRANC BHATTIEL B Attending Unavailable KACY PRETTY Attending Unavailable TYSON BHATTI Attending Unavailable YARAAYESHA BERGMAN Attending Unavailable Allergies Allergy ClassificationReported Allergen(s)Allergy TypeDate of OnsetReaction(s) Facility (1 source)Aminolevulinic AcidDrug [id number] Medications Current Medications MedicationDrug Class(es)DatesSig (Normalized)Sig (Original)aspirin 81 mg delayed release oral tablet (20 sources)Platelet Aggregation Inhibitor, Nonsteroidal Anti-inflammatory Drug Start: 12-22-2023 End: 14-35-0810balq 1 tablet by mouth once dailyAspirin 81 mg Tablet,Delayed Release (Dr/Ec) Active 81 MG PO Daily 0 December 22, 2023 12:00am Complies with drug therapyStart: 04-07-2022 End: 35-73-3757evze 1 tablet by mouth every weekaspirin 81 mg EC tablet Take 1 tablet (81 mg) by mouth per week. 0 04/07/2022 06/19/2023 Discontinued (Therapy completed)atorvastatin 20 mg oral tablet (20 sources)HMG-CoA Reductase InhibitorStart: 02-28-2020 End: 25-37-9560rbgu 1 tablet by mouth in the morningatorvastatin (Lipitor) 20 MG tablet Take 20 mg by mouth in the morning. 06/19/2023 Activeazithromycin 250 mg oral tablet (2 sources)Macrolide AntimicrobialStart: 06-21-2024 End: 52-48-4176fseu 2 tablets by mouth once daily, then take 1 tablet by mouth once dailyazithromycin (Zithromax) 250 MG tablet Indications: Acute non- recurrent pansinusitis Take 2 tablets(500 mg) by mouth Daily for 1 day, THEN 1 tablet (250 mg) Daily for 4 days. 6 tablet 06/21/2024 06/26/2024 Activecarbamide peroxide 65 mg/ml otic solution (2 sources)Start: 06-21-2024 End: 24-98-0466pjaicyyqz peroxide (Debrox) 6.5 % otic solution Indications: Cerumen debris on tympanic membrane ofboth ears Administer 5-10 drops into affected ear(s) in the morning and 5-10 drops before bedtime. Do all this for 4 days. 15 mL 06/21/2024 06/25/2024 ActivehydroCHLOROthiazide 12.5 mg / losartan potassium 50 mg oral tablet (20 sources)Thiazide Diuretic, Angiotensin 2 Receptor BlockerStart: 02-17-2024 End: 82-03-3790tvaf 1 tablet by mouth once dailylosartan-hydroCHLOROthiazide (Hyzaar) 50-12.5 MG tablet Indications: LVH (left ventricular hypertrophy) , Localized edema Take 1 tablet by mouth Daily 90 tablet 3 02/17/2024 ActiveIron (20 sources)Start: 71-43-6231brxt 1 tablet by mouth every other dayIron (Ferrous Sulfate) 325 MG 1 tablet Orally EVERY OTHER DAY for 30 days Jul, Active latanoprost 0.05 mg/ml ophthalmic solution (20 sources)Prostaglandin AnalogStart: 12-31-2024 End: 74-48-3702xjbw 1 drop(s) into the eye(s) at bedtimelatanoprost (Xalatan) 0.005 % ophthalmic solution Indications: Primary open angle glaucoma (POAG) of both eyes, moderate stage Administer 1 drop into both eyes at bedtime 2.5 mL 5 02/20/2025 ActiveLORazepam 0.5 mg oral tablet (5 sources)BenzodiazepineLORazepam (Ativan) 0.5 MG tablet Take by mouth every 12 (twelve) hours if needed for anxiety Activelosartan potassium 50 mg oral tablet (7 sources)Angiotensin 2 Receptor BlockerStart: 12-22-2023 End: 47-67-9127exvn 1 tablet by mouth once dailyLosartan 50 mg Tablet Active 50 MG PO Daily December 22, 2023 12:00am Complies with drug therapyomeprazole 20 mg delayed release oral tablet (20 sources)Proton Pump InhibitorStart: 40-93-9832kyte 1 tablet by mouth once dailyOmeprazole 20 MG tablet delayed-release Take 20 mg by mouth Daily 12/22/2023 ActiveStart: 84-66-1594adpl 1 capsule by mouth once dailyOmeprazole 20 mg capsule,delayed release(DR/EC) Active 20 MG PO Daily December 22, 2023 12:00am Complies with drug therapyStart: 33-07-6563bkhy 1 capsule by mouth every twenty-four hoursOmeprazole 20 MG 1 capsule Orally Once a day for 30 days Jul, ActiveStart: 06-10-2018 End: 17-80-0918beue 2 capsules by mouth once dailyOmeprazole 20 mg Capsule,Delayed Release(Dr/Ec) Discontinued 40 MG PO Daily June 10, 2018 1:00am December 17, 2023 3:28pmStart: 06-10-2018 End: 94-05-4561wiys 40 mg by mouth once dailyOmeprazole Discontinued 40 MG PO Daily June 10, 2018 1:00am December 17, 2023 3:28pmtraZODone hydrochloride 50 mg oral tablet (20 sources)Serotonin Reuptake InhibitorStart: 01-18-2024 End: 08-03-5842rmso 1 tablet by mouth at bedtimetraZODone (Desyrel) 50 MG tablet Indications: 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) Take 1 tablet (50 mg) by mouth at bedtime 30 tablet 11 01/18/2024 Activevitamin b12 1 mg oral capsule (20 sources)Vitamin C95Ibbxu: 65-32-7722dolo 1 capsule by mouth once daily Cyanocobalamin (Vitamin B-12) 1,000 mcg capsule Active 1000 MCG PO Daily February 10, 2024 12:00am Complies with drug therapyStart: 12-22-2023 End: 20-98-6081vgqd 1 tablet by mouth once dailyCyanocobalamin (Vitamin B-12) 500 mcg tablet Discontinued 500 MCG PO Daily December 22, 2023 12:00am February 10, 2024 9:55amStart: 12-22-2023 End: 78-46-6949clkj 1 tablet by mouth once dailyCyanocobalamin (Vitamin B-12) 500 mcg tablet Discontinued 500 MCG PO Daily December 22, 2023 12:00am February 10, 2024 9:55amStart: 12-22-2023 End: 82-20-2101bmnc 500 ug by mouth once dailyCyanocobalamin (Vitamin B-12) Discontinued 500 MCG PO Daily December 22, 2023 12:00am February 10, 2024 9:55amStart: 41-17-7083myfh 500 ug by mouth once dailyCyanocobalamin (Vitamin B- 12) Active 500 MCG PO Daily December 22, 2023 12:00amtake 1 tablet by mouth once dailycyanocobalamin (Vitamin B-12) 1000 MCG tablet Take 1,000 mcg by mouth Daily ActiveVitamin C 500 MG (20 sources)Vitamin C 500 MG as directed Orally Activewarfarin sodium 6 mg oral tablet (20 sources)Vitamin K AntagonistStart: 02-23-2025 End: 63-59-6118lsdbzdzm (Coumadin) 6 MG tablet Indications: Paroxysmal atrial fibrillation (HCC) Take 1 tablet (6 mg) by mouth See administration instructions Take 3 mg on Saturdays. Dosing changes frequently. 02/23/2025 ActiveStart: 06-03-2024 End: 79-11-5839hkkl 1 tablet by mouth once dailywarfarin (Coumadin) 4 MG tablet Indications: Paroxysmal atrial fibrillation (HCC) Take 1 tablet (4 mg) by mouth See administration instructions 4 mg daily, except for Thursday. Dose changes frequently. 02/23/2025 ActiveStart: 88-10-0747dleb 1 tablet by mouth once daily warfarin (Coumadin) 4 MG tablet Indications: Longstanding persistent atrial fibrillation (CMS/HCC) Take 1 tablet (4 mg) by mouth 1 (one) time each day Take as directed per After Visit Summary.- dose changing weekly per lab results 90 tablet 11 03/02/2024 ActiveStart: 12-17-2023 End: 50-54-7901lbwo 3 tablets by mouth six times weeklyWarfarin (Jantoven) 2 mg tablet Discontinued 6 MG PO 6 TIMES PER WEEK December 17, 2023 12:00am February 10, 2024 9:55am thursday,thursday,,thursday, thursday and sundaystart: 07-29-2023 End: 19-39-2245Gttxjxxd 2 mg tablet Active 2 MG PO As Directed February 10, 2024 12:00am [place] [facility] [place] [facility] - 4mg on Mondays & 6mg on ,,,,Fr,Sa Complies with drug therapyStart: 07-29-2023 End: 17-09-4635nxxe 4 mg by mouth every weekWarfarin Discontinued 4 MG PO every week July 29, 2023 1:00am February 10, 2024 9:55am mondaysStart: 00-29-8107pyev 1 mg by mouth once dailyWarfarin Active MG PO Daily July 29, 2023 1:00am FreeTextSig: as directed orally once daily; Note: Source Status: Taking; Provider: Student 23Start: 35-39-5855utkq 3 tablets by mouth three times weekly, then take 2 tablets by mouth oncewarfarin (Coumadin) 2 mg tablet Take 3 tablets (6 mg) by mouth 3 times a week. ON Thursday AND THURSDAY. TAKE 2 TABLETS (4 MG) ORALLY ALL OTHER DAYS OR DIRECTED. [place] [facility] [place] [facility] 0 11/07/2020 ActiveStart: 06-07-2018 End: 56-73-7720cmpb 1 tablet by mouth onceWarfarin 5 mg tablet Discontinued 5 MG PO every Thursday, , Thursday, and Thursday June 07, 2018 1:00am June 10, 2018 3:04pmStart: 06-07-2018 End: 36-58-0795Tmtnbixt 7.5 mg tablet Discontinued 7.5 MG PO As Directed June 07, 2018 1:00am June 10, 2018 3:04pmtake 1 tablet by mouth once dailywarfarin (Coumadin) 4 MG tablet Take 4 mg by mouth 1 (one) time each day Take as directed per AfterVisit Summary. ActiveWarfarin 2mg 2 mg as directed orally once daily Active Completed/Discontinued Medications MedicationDrug Class(es)DatesSig (Normalized)Sig (Original)[id number] 200 actuat albuterol 0.09 mg/actuat metered dose inhaler (10 sources)beta2-Adrenergic AgonistStart: 07-29-2023 End: 23-26-4346mllj 1 puff(s) by inhalation four times daily as needed for wheezingAlbuterol Sulfate 90 mcg/actuation HFA aerosol inhaler Discontinued 2 PUFF INHALATION Four times daily as needed for shortness of breath or wheezing 8.5 July 29, 2023 1:00am December 17, 2023 3:27pmascorbic acid 500 mg oral capsule (14 sources)Vitamin CStart: 07-29-2023 End: 86-04-1958Heovjbub Acid (Vitamin C) 500 mg capsule Discontinued CAP PO As Directed July 29, 2023 1:00amJuly 2023 3:27pm FreeTextSig: as directed Orally; Note: Source Status: Taking; Provider: Yenifer Florentino ( )Start: 07-29-2023 End: 13-29-3169Sukeprca Acid (Vitamin C) Discontinued CAP PO As Directed July 29, 2023 1:00am December 17, 2023 3:27pm FreeTextSig: as directed Orally; Note: Source Status: Taking; Provider: Yenifer Florentino ( ) Vitamin C 500 MG as directed Orally Activedoxycycline hyclate 100 mg oral capsule (10 sources)Tetracycline-class DrugStart: 07-29-2023 End: 38-95-8238ndhq 1 capsule by mouth twice dailyDoxycycline Hyclate 100 mg capsule Discontinued 100 MG PO Twice daily 27 03July 29, 2023 1:00am December 17, 2023 3:27pmferrous sulfate 325 mg oral tablet (13 sources)Start: 65-59-9308kgmt 1 tablet by mouth every other dayFerrous Sulfate 325 (65 Fe) MG Oral Tablet TAKE ONE TABLET BY MOUTH EVERY OTHER DAY Quantity: 30 Refills: 0 Ordered: 18-Jan-2021 DO Start : 06-Aug-2020 ActiveStart: 06-10-2018 End: 91-32-9455knfk 1 tablet by mouth twice dailyFerrous Sulfate 324 mg (65 mg iron) Tablet,Delayed Release (Dr/Ec) Discontinued 324 MG PO Twice daily June 10, 2018 1:00am December 17, 2023 3:28pmmethylPREDNISolone 4 mg oral tablet (10 sources)CorticosteroidStart: 07-29-2023 End: 15-16-7224zset 1 tablet by mouth onceMethylprednisolone (Medrol (Aiden)) 4 mg tablets,dose pack Discontinued 0 PO per package directions 1February 2023 1:00am December 17, 2023 3:28pm PO PER PKG DIR for 6 daysniacinamide 500 mg oral tablet (20 sources)Start: 07-29-2023 End: 26-24-9484homq 1 tablet by mouth once dailyNiacinamide 500 mg tablet Discontinued 1 TAB PO Daily July 29, 2023 1:00am December 17, 2023 3:28pm FreeTextSi tablet Orally Once a day; Note: Source Status: Taking; Provider: Yenifer Florentino( )take 1 tablet by mouth every twenty-four hours Niacinamide 500 MG 1 tablet Orally Once a day for 30 day(s) Jyyrmb62 hr timolol 5 mg/ml ophthalmic solution (13 sources)beta-Adrenergic BlockerStart: 78-03-5228mmxd 1 drop(s) into the eye(s) once daily in the morningTimolol Maleate 0.5 % Ophthalmic Solution INSTILL 1 DROP INTO EACH EYE EVERY MORNING Quantity: 5 Refills: 0 Ordered: 09-Jan-2021 DO Start : 12-Jun-2020 ActiveStart: 06-07-2018 End: 48-22-6718mlsd 1 drop(s) into the eye(s) once dailyTimolol Maleate 0.5 % drops Discontinued 1 DROPS OPHTHALMIC Daily June 07, 2018 1:00am December 162023 3:28pmStart: 06-07-2018 End: 53-28-8273fbad 1 drop(s) into the eye(s) once dailyTimolol Maleate Discontinued 1 DROPS OPHTHALMIC Daily June 07, 2018 1:00am December 17, 2023 3:28pmStart: 47-85-1626dmdc 1 drop(s) into the eye(s) once dailyTimolol Maleate Active 1 DROPS OPHTHALMIC Daily June 07, 2018 1:00amStart: 53-65-8950obdw 1 drop(s) into the eye(s) once dailyTimolol Maleate Active 1 DROPS OPHTHALMIC Daily June 07, 2018 12:00am Problems Active Problems Problem ClassificationProblemDateDocumented DateEpisodic/Chronic Administrative/social admission (2 sources)Patient encounter status; Translations: [Other specified counseling] 75-98-5837GocyvrxfUjzdvfd dysrhythmias (20 sources)Chronic atrial fibrillation; Translations: [Permanent atrial fibrillation]Onset: 97-99-1104NxwceyfYdcsejj dysrhythmias (2 sources)Cardiac dysrhythmiasOnset: 90-21-7554Qfrsrej obstructive pulmonary disease and bronchiectasis (12 sources)Bronchitis; Translations: [Bronchitis, not specified as acute or chronic]49-78-4117NhtvsquhWsxjymrutg heart failure; nonhypertensive (4 sources)Chronic diastolic heart failure; Translations: [Chronic diastolic (congestive) heart failure]Onset: 861228-19-2474XaxirabHfjlveux atherosclerosis and other heart disease (20 sources)Coronary arteriosclerosis; Translations: [Coronary atherosclerosis of unspecified type of vessel, [place] or graft]Onset: 881024-75-6856 ChronicDeficiency and other anemia (1 source)Anemia, unspecified; Translations: [ANEMIA UNSPECIFIED]Onset: 07-77-9870WqfeybvxOapyhned, dementia, and amnestic and other cognitive disorders (20 sources)Senile dementia; Translations: [Alzheimer's disease with late onset] Onset: 951012-81-5834VywfwogEppfsdujmboltg and diverticulitis (20 sources)Diverticular disease of colon; Translations: [Diverticulosis of intestine, part unspecified, without perforation or abscess without bleeding] Onset: 194362-26-5889EvivpvxYwqffahkeh disorders (19 sources)Gastroesophageal reflux disease; Translations: [Gastro-esophageal reflux disease without esophagitis]Onset: 375882-43-6479GercfiqPsykyqthv hypertension (20 sources)Essential hypertension; Translations: [Essential (primary) hypertension]Onset: 300799-07-3170RebnydrRkpxwyghsyemrt ulcer (except hemorrhage) (20 sources)Gastric ulcer without hemorrhage, without perforation AND without obstruction; Translations: [Gastric ulcer, unspecified as acute or chronic, without hemorrhage or perforation]Onset: 307852-57-0024ZgsklidSzaxwofe (20 sources)Primary open angle glaucoma; Translations: [Primary open-angle glaucoma, bilateral, moderate stage]Onset: 917111-93-2305VxdvwjnKmqrwnw and fatigue (4 sources)Asthenia; Translations: [Weakness]64-17-5704ZgfwdpbnRilinwrwzoxesn (20 sources)Primary osteoarthritis of ankle; Translations: [Primary osteoarthritis, left ankle and foot]Onset: 013604-52-8977SawgbihMlssk aftercare (2 sources)Drug therapy finding; Translations: [Long-term (current) use of other medications]EpisodicOther aftercare (20 sources)Encounter for therapeutic drug level monitoring; Translations: [Medication monitoring encounter Z51.81]Onset: 03-07-2021 Resolved: 38-35-3090NrayyzsuQiiut aftercare (20 sources)Long-term current use of anticoagulant; Translations: [halfway (current) use of anticoagulants]Onset: 312260-54-1091QtgkvveuHsfph and ill-defined heart disease (20 sources)Left ventricular hypertrophy; Translations: [Cardiomegaly]Onset: 810652-59-4122HvpqtkrJvoby circulatory disease (2 sources)Patient post angioplasty; Translations: [Other postprocedural status] EpisodicOther circulatory disease (2 sources)Personal history of transient ischemic attack (TIA), and cerebral infarction 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 deficits; Translations: [Personal history of transient ischemic attack (TIA), and cerebral infarction 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 deficits]24-17-5438VhrcuyxkEkmbk circulatory disease (4 sources)Orthostatic hypotension; Translations: [Orthostatic hypotension] 37-73-1564PwuvgwnyMtnry connective tissue disease (20 sources)Pain in limb; Translations: [Pain in left leg]EpisodicOther ear and sense organ disorders (9 sources)Impacted cerumen; Translations: [Impacted cerumen, bilateral] 69-75-5354BwtiqjmjXpmho ear and sense organ disorders (2 sources)Impacted cerumen, bilateral; Translations: [Impacted cerumen] 71-56-3553NswscvcgFywjh ear and sense organ disorders (2 sources)Excessive cerumen in ear canal ; Translations: [Impacted cerumen, bilateral]33-99-6607QdhbfisaUoyqx ear and sense organ disorders (1 source)Impacted cerumen of bilateral ears; Translations: [Impacted cerumen, bilateral]90-65-2317GduivuizDawqp injuries and conditions due to external causes (1 source)History of fall; Translations: [History of falling]51-33-1803Opqjxuuq Other nervous system disorders (3 sources)Encephalopathy, unspecified; Translations: [Encephalopathy, unspecified]71-13-9526AcascakQckyf nervous system disorders (19 sources)Walking disability; Translations: [Difficulty in walking, not elsewhere classified]Onset: 254254-33-8751VnwkgokUmpzk nutritional; endocrine; and metabolic disorders (20 sources)Obese class I; Translations: [Body mass index (BMI) 31.0-31.9, adult]ChronicOther nutritional; endocrine; and metabolic disorders (3 sources)Obesity; Translations: [Obesity, unspecified]Onset: 01-24-2023 87-94-5909YegvzraKeztz nutritional; endocrine; and metabolic disorders (20 sources)Body mass index 30+ - obesity; Translations: [Body mass index (BMI) 31.0-31.9, adult]Onset: 73-64-144126717487-36-5413UsejfsxGqaxz nutritional; endocrine; and metabolic disorders (2 sources)Body mass index 25-29 - overweight; Translations: [Body Mass Index 29.0-29.9, adult]EpisodicOther nutritional; endocrine; and metabolic disorders (2 sources)Overweight; Translations: [Overweight]EpisodicOther upper respiratory infections (4 sources)Acute pansinusitis; Translations: [Acute pansinusitis, unspecified] 58-26-4962WtchnwyoOgzshyko codes; unclassified (2 sources)Altered mental status; Translations: [Altered mental status, unspecified]39-60-2148XsvltmeqEkqzjhap codes; unclassified (2 sources)Altered mental status, unspecified; Translations: [Altered mental status]11-38-6262ExsodlxuIswldlgu codes; unclassified (1 source)Hallucinations, unspecified; Translations: [Hallucinations]12-23-2023 EpisodicThyroid disorders (1 source)Hypothyroidism, unspecified; Translations: [HYPOTHYROIDISM UNSPECIFIED]Onset: 90-51-7700JdrhoboOscpvrqbuopa (2 sources)Other mcc (current) drug therapy / Z79.899(ICD-9)Onset: 39-66-0904Vvcnghissfpy (2 sources)Encounter for screening for cardiovascular disorders / Z13.6(ICD-9) Onset: 10-38-1109Bpwxmpeoubcx (1 source)Presence of aortocoronary bypass graft / Z95.1(ICD-9)Onset: 10-08-2017 Unclassified (1 source)Athscl heart disease of [place] coronary artery w/o ang pctrs / I25.10(ICD-9)Onset: 16-79-6592Lkfmldkdcezp (2 sources)Permanent atrial fibrillation; Translations: [Permanent atrial fibrillation (CMS/HCC)]Onset: 01-24-2023 Past or Other Problems Problem ClassificationProblemDateDocumented DateEpisodic/ChronicCoronary atherosclerosis and other heart disease (4 sources)Presence of aortocoronary bypass graft; Translations: [Coronary angioplasty status]Onset: 37-35-7588PegnbulzWfxtlmssbv and other anemia (20 sources)Anemia; Translations: [Anemia, unspecified]Onset: 02-10-2024 36-10-5783PupabcplUwxgqzwefn and other anemia (20 sources)Iron deficiency anemia; Translations: [Iron deficiency anemia, unspecified]Onset: 707067-08-4294NgflyvdxX Codes: Fall (8 sources)Fall; Translations: [Unspecified fall, initial encounter]Onset: 03-27-2025 Resolved: 388339-74-3394TxppdcrrRljmdbahsmdutzvb hemorrhage (5 sources)Upper gastrointestinal bleeding; Translations: [Gastrointestinal hemorrhage, unspecified]Onset: 03-27-2025 Resolved: 457869-66-4409TnyscfnrUrdsq valve disorders (20 sources)Heart murmur; Translations: [Cardiac murmur, unspecified]Onset: 749169-96-1172SnvnxhetAvadiwgpeqjt with complications and secondary hypertension (20 sources)Hypertensive urgency ; Translations: [Hypertensive urgency]Onset: 02-29-2024 Resolved: 406571-24-8650OxfmereLzliizxdzjr deficiencies (20 sources)Cobalamin deficiency; Translations: [Deficiency of other specified B group vitamins]Onset: 970682-82-7442ApttrljvDjoy wounds of head; neck; and trunk (1 source)Laceration without foreign body of scalp, initial encounter; Translations: [Laceration without foreign body of scalp, initial encounter] Onset: 98-74-2960RxcrnqhoUfrmz aftercare (20 sources)Taking high risk medication; Translations: [Other mcc (current) drug therapy]Onset: 569996-51-1918KofttxsgThwih aftercare (2 sources)Other exterminator helper (current) drug therapy; Translations: [Other mcc (current) drug therapy]Onset: 33-17-9813RqrtnopqViezd circulatory disease (20 sources)History of cerebrovascular accident 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 deficits; Translations: [Personal history of transient ischemic attack (TIA), and cerebral infarction 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 deficits]Onset: 039573-40-5851NnlslwvrDjrbt circulatory disease (11 sources)History of cerebrovascular accident due to ischemia; Translations: [Personal history of transient ischemic attack (TIA), and cerebral infarction 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 deficits]Onset: 03-27-2025 Resolved: 652631-76-2154NatxusdsFzlsb hematologic conditions (20 sources)MCV - low; Translations: [Other abnormality of red blood cells] Onset: 337580-79-4913EafygwswGddie injuries and conditions due to external causes (8 sources)Closed injury of head; Translations: [Unspecified injury of head, initial encounter]Onset: 03-27-2025 Resolved: 764728-39-2500LzzsmvaeBotgb nervous system disorders (20 sources)Disorder of brain; Translations: [Encephalopathy, unspecified]Onset: 02-29-2024 Resolved: 369047-13-3681DroaixzIzxyp nervous system disorders (19 sources)Metabolic encephalopathy; Translations: [Metabolic encephalopathy] Onset: 01-05-2025 Resolved: 102890-28-2045QtlegbeZynaq non-traumatic joint disorders (2 sources)Pain in left knee; Translations: [Pain in joint, lower leg]Onset: 478065-62-3670OlktwgldUayrldyf codes; unclassified (20 sources)Hallucinations; Translations: [Hallucinations, unspecified]Onset: 099610-37-4507ChzikyujGyxvcqxb codes; unclassified (20 sources)Localized edema; Translations: [Localized edema]Onset: 02-17-2024 95-50-4962MykbunytQmutfoqe codes; unclassified (19 sources)Insomnia; Translations: [Insomnia, unspecified]Onset: 01-05-2025 70-87-5581NdxpzpmbTvwkndzmy and history of mental health and substance abuse codes (20 sources)Ex-smoker; Translations: [Personal history of tobacco use]Onset: 483782-06-1867IxweesudPkcdtdq on above:Quit 1984;Superficial injury; contusion (20 sources)Contusion of knee; Translations: [Contusion of unspecified knee, initial encounter]Onset: 01-05-2025 Resolved: 117297-41-3986PqscyepjPqizamnhxnhh (1 source)Encounter for screening for cardiovascular disorders; Translations: [Encounter for screening for cardiovascular disorders]Onset: 10-08-2017 Unclassified (1 source)Other exterminator helper (current) drug therapy; Translations: [Other exterminator helper (current) drug therapy]Onset: 72-88-3758Fyxtidpufihl (3 sources)Onset: Results Test NameValueInterpretationReference RangeFacilityLaboratory - Cytologyon 68-03-8318Bmzjtknjvuy observation Cyto stain Nom (Cvx)2.7NOIN HealthcareNo Panel Informationon 75-57-2140Xvlrtivdwjydln and review of laboratory resultsNoal [facility] HealthcareLaboratory - Cytologyon 17-77-6291Lwdfbrysflr observation Cyto stain Nom (Cvx)2.8NOIN HealthcareNo Panel Informationon 23-02-0719Xsynuqucrughnn and review of laboratory resultsNoMcLeod Health Loris HealthcareLaboratory - Cytologyon 13-22-5929Eulcpiytacw observation Cyto stain Nom (Cvx)1.9NOIN HealthcareNo Panel Informationon 14-19-8235Umbkeonrrbpzge and review of laboratory resultsAbnoShriners Hospitals for Children - [facility] HealthcareLaboratory - Cytologyon 95-56-4027Hhbboztpuqy observation Cyto stain Nom (Cvx)2.7NOIN HealthcareNo Panel Informationon 48-40-0028Wvwpemsxzcboli and review of laboratory resultsNormWashington Health System Greene HealthcareLaboratory - Cytologyon 09-22-4196Grxuabozsja observation Cyto stain Nom (Cvx)1.8NOIN HealthcareNo Panel Informationon 29-35-8136Yvlyfjlhzakhcp and review of laboratory resultsAbnoAnMed Health Women [facility] HealthcareLaboratory - Cytologyon 41-05-5423Syixkynlhqu observation Cyto stain Nom (Cvx)4.1[facility] [place] [place] HealthcareNo Panel Informationon 87-90-1141Acwulvcyofnkkk and review of laboratory resultsAbMary Free Bed Rehabilitation HospitalS HealthcareLaboratory - Cytologyon 19-79-5301Vudmhvxmqsn observation Cyto stain Nom (Cvx)2.5NOIN HealthcareNo Panel Informationon 13-03-6583[facility] HealthcareLaboratory - Cytologyon 26-17-7161Gsnqdjtztxf observation Cyto stain Nom (Cvx)8NOIN HealthcareNo Panel Informationon 40-24-3634WUVDSaint Louis University [facility] Laboratory - Cytologyon 48-23-6005Ijbtrbjchkq observation Cyto stain Nom (Cvx) 6.3NOHawthorn Children's Psychiatric HospitalNo Panel Informationon 18-81-8503Nruaydpaictjjg and review of laboratory resultsAbnoAmery Hospital and ClinicOutside Recordson 02-51-7939Znfdufh [id number]#1.00OTGTNorthwestern Medical Center HospitalOutside Recordson 78-79-0342Edfgtnc Records [id number]#1.00OTGTKettering [facility] Outside Recordson 06-87-1402Mgldttg Records [id number]#1.00OTAshtabula [facility] Outside [id number]#1.00OTGTAvita Health System Bucyrus HospitalOutside Records [id number]#1.00OTGTKettering Health Main Campus Outside [id number]#1.00OTGTAvita Health System Bucyrus HospitalRad - Other Radiology Reporton 19-31-5657Jfx - Other Radiology [id number]#1.00OTGTKettering Health Main CampusX-ray reportOrdered By: Vitor Church on 77-72-8099Ywr[place] [address] XRay Report Signed Patient: Emigdio Jeong III MR#: [id number] : 1940 Acct:[id number] Age/Sex: 84 / M ADM Date: 5 Loc: XDCLY Room: Type: [facility] Attending Dr: Isabelle Rucker ORDER PROCESSOR-C Copies to: KAREN De La Cruz~ Ordering [...] 6:04 PM Dictation Location: RADIO-PC-20 Transcribed By: SKYLER 11/10/241803 Dictated By: Vitor Church DO 11/10/241802 Signed By: 11/10/241803 [facility]S HospitalXR knee LT 4V*on 63-50-1162YL knee LT 4V* [facility] [place] [address] XRay Report Signed Patient: Emigdio Jeong III MR#: [id number] : 1940 Acct:[id number] Age/Sex: 84 / M ADM Date: 11/10/24 Loc: XDCLY Room: Type: [facility] Attending Dr: Isabelle Rucker ORDER PROCESSOR-C Copies to: KAREN De La Cruz Ordering [...] 6:04 PM Dictation Location: RADIO-PC-20 Transcribed By: SKYLER 11/10/241803 Dictated By: Vitor Church DO 11/10/241802 Signed By: 11/10/24 1804[facility] Physician GroupAlanine aminotransferase [Enzymatic activity/volume] in Serum or PlasmaOrdered By: Josue Leigh on 94-90-4899KTV [Catalytic activity/Vol]Alanine aminotransferase [Enzymatic activity/volume] in Serum or PlasmaSt. Anthony'S HospitalAlbumin [Mass/volume] in Serum or Plasma by Bromocresol green (BCG) dye binding metho Ordered By: Josue Leigh on 37-27-4839Adkiyhg BCG dye [Mass/Vol]Albumin [Mass/volume] in Serum or Plasma by Bromocresol green (BCG) dye binding methoLow 3.5-5.7FMercy Health St. Joseph Warren HospitalAlkaline phosphatase [Enzymatic activity/volume] in Serum or PlasmaOrdered By: Josue Leigh on 11-02-2024 ALP [Catalytic activity/Vol]Alkaline phosphatase [Enzymatic activity/volume] in Serum or Yjsrih49-646CybqnwcsvSt. Anthony'S HospitalAspartate aminotransferase [Enzymatic activity/volume] in Serum or PlasmaOrdered By: Josue Leigh on 57-69-2034TCZ [Catalytic activity/Vol]Aspartate aminotransferase [Enzymatic activity/volume] in Serum or Gfieog83-92LimxkqqszSt. Anthony'S Hospital Basophils Auto (Bld) [#/Vol]Ordered By: Josue Leigh on 03-94-7301Gzhiavmch (Bld) [#/Vol]Automated basophil count0.0-0.2FMercy Health St. Joseph Warren Hospital Basophils/100 WBC Auto (Bld)Ordered By: Josue Leigh on 11-02-2024 Basophils/100 WBC (Bld)Automated basophil %.[facility] Bilirubin.total [Mass/volume] in Serum or PlasmaOrdered By: Josue Leigh on 22-38-1872Kcwgeleen [Mass/Vol]Bilirubin.total [Mass/volume] in Serum or Plasma 0.3-1.0St. [facility]'S HospitalCT cervical spine wo conon 18-65-8014FM cervical spine wo [facility] Main [place] [id number] CT Scan Report Signed Patient: Emigdio Jeong III MR#: [id number] : 1940 Acct:[id number] Age/Sex: 84 / M ADM Date: 11/02/24 Loc: ER Room: Type: REG ER Attending Dr: Copies to: Josue Leigh [...] Hassan M.D. 11/02/2024 6:47 PM Dictation Location: [place] [address] Transcribed By: [facility] 11/02/241846 Dictated By: Pako Hassan MD 11/02/241844 Signed By: 11/02/24 [facility] HospitalUF Health [facility] Physician GroupCT head/brain wo [facility] 45-53-3276JS head/brain wo [facility] Main [place] [address] [place] [address] CT Scan Report Signed Patient: Emigdio Jeong III MR#: [id number] : 1940 Acct:[id number] Age/Sex: 84 / M ADM Date: 11/02/24 Loc: ER Room: Type: [facility] ER Attending Dr: Copies to: Josue [...] CENTRAL [employer]VOL[employer] CHANGES. Impression dictated by: Pako aHssan M.D. 11/02/2024 6:41 PM Dictation Location: [place] [address] Transcribed By: [facility] 11/02/241840 Dictated By: Pako Hassan MD 11/02/24 183 Signed By: 11/02/241840NormTampa Shriners Hospital Physician GroupCalcium [Mass/volume] in Serum or PlasmaOrdered By: Josue Leigh on 93-99-4921Qgvaedt [Mass/Vol]Calcium [Mass/volume] in Serum or PlasmaLow8.6-10.3FMercy Health St. Joseph Warren Hospital Carbon dioxide, total [Moles/volume] in Serum or PlasmaOrdered By: Josue Leigh on 89-38-8425LZ4 [Moles/Vol]Carbon dioxide, total [Moles/volume] in Serum or Dkxkkg98.0-31.0St[facility]S HospitalChloride [Moles/volume] in Serum or PlasmaOrdered By: Josue Leigh on 80-02-8208Rsxukyqm [Moles/Vol]Chloride [Moles/volume] in Serum or Qytplb43-992KtbsqltjkSt. Anthony'S HospitalComplete Blood Count Auto Diffon 61-40-7077Rgkkndsld (Bld) [#/Vol] 0.0 10*3/uLNormal0.0-0.2The [facility] Physician GroupComment on above:Result Comment: PERFORMED BY: [address] [place] [address] PATHOLOGIST JOB SPOTTER DARNELL LIZAMA M.D.Performed By: #### HS TROP, CMP, CBC #### [place] [address] USABasophils/100 WBC (Bld)0.7 %Normal.The [facility] Physician GroupComment on above:Performed By: #### HS TROP, CMP, CBC #### [place] [address] USAEosinophils (Bld) [#/Vol]0.2 10*3/uLNormal0.0-0.45The [facility] Physician GroupComment on above:Performed By: #### HS TROP, CMP, CBC #### [place] [address] USAEosinophils/100 WBC (Bld)3.9 %Normal.The [facility] Physician GroupComment on above:Performed By: #### HS TROP, CMP, CBC #### [place] [address] USAErythrocyte distribution width (RBC) [Ratio]18.1 %High 12.0-14.8The [facility] Physician GroupComment on above:Performed By: #### HS TROP, CMP, CBC #### [place] [address] USAHematocrit (Bld) [Volume fraction]39.4 %Utqktn29.8-50.0The [facility] Physician GroupComment on above:Performed By: #### HS TROP, CMP, CBC #### [place] [address] USAHemoglobin (Bld) [Mass/Vol]12.7 g/dLLow13.0-17.0The [facility] Physician GroupComment on above:Performed By: #### HS TROP, CMP, CBC #### [place] [address] USALymphocytes (Bld) [#/Vol]1.4 10*3/uLNormal1.00-4.8The [facility] Physician GroupComment on above:Performed By: #### HS TROP, CMP, CBC #### [place] [address] USALymphocytes/100 WBC (Bld)29.2 %Normal.The [facility] Physician GroupComment on above:Performed By: #### HS TROP, CMP, CBC #### [address] (RBC) [Entitic mass]26.7 pgLow27.5-35.2The [facility] Physician GroupComment on above:Performed By: #### HS TROP, CMP, CBC #### [address] (RBC) [Entitic vol]83.0 fLLow83.5-101The [facility] Physician GroupComment on above:Performed By: #### HS TROP, CMP, CBC #### [place] [address] USAMean Corpuscular HGB Conc32.2 g/dLLow32.5-35.6The [facility] Physician GroupComment on above:Performed By: #### HS TROP, CMP, CBC #### [place] [address] USAMonocytes (Bld) [#/Vol]0.7 10*3/uLNormal0.0-0.8The [facility] Physician GroupComment on above:Performed By: #### HS TROP, CMP, CBC #### [place] [address] USAMonocytes/100 WBC (Bld)19.52 %Normal0.00-20.00The [facility] Physician GroupComment on above:Performed By: #### HS TROP, CMP, CBC #### [place] [address] USAMonocytes/100 WBC (Bld)15.5 %Normal.The [facility] Physician GroupComment on above:Performed By: #### HS TROP, CMP, CBC #### [place] [address] USANeutrophils (Bld) [#/Vol]2.4 10*3/uLNormal1.8-7.7The [facility] Physician GroupComment on above:Performed By: #### HS TROP, CMP, CBC #### [place] [address] USANeutrophils/100 WBC (Bld)50.7 %Normal.The [facility] Physician GroupComment on above:Performed By: #### HS TROP, CMP, CBC #### [facility] [address] [place] [address] USANRBC%0.1 /100{WBC}Normal0-0.5The [facility] Physician Group Comment on above:Performed By: #### HS TROP, CMP, CBC #### [place] [address] USAPlatelet mean volume (Bld) [Entitic vol]8.7 fLNormal 6.6-10.1The [facility] Physician GroupComment on above:Performed By: #### HS TROP, CMP, CBC #### [place] [address] USAPlatelets (Bld) [#/Vol]132 10*3/lHCym071-948Miy [facility] Physician GroupComment on above:Performed By: #### HS TROP, CMP, CBC #### [place] [address] USARBC (Bld) [#/Vol]4.75 10*6/uLNormal3.90-5.60The [facility] Physician GroupComment on above:Performed By: #### HS TROP, CMP, CBC #### [place] [address] USAWBC (Bld) [#/Vol]4.7 10*3/uLNormal4.1-10.5The [facility] Physician GroupComment on above:Performed By: #### HS TROP, CMP, CBC #### [place] [address] USAComprehensive Metabolic Panelon 44-61-7949Jwuxiiw [Mass/Vol]3.4 g/dLLow3.5-5.7The [facility] Physician GroupComment on above: Performed By: #### HS TROP, CMP, CBC #### [address] [place] [address] USAAlbumin/Globulin [Mass ratio]1.4 {ratio}NormalThe [facility] Physician GroupComment on above:Performed By: #### HS TROP, CMP, CBC #### [facility] [address] [place] [address] USAALP [Catalytic activity/Vol]85 U/WHtrjda43-355Unk [facility] Physician GroupComment on above:Performed By: #### HS TROP, CMP, CBC #### [facility] [address] [place] [address] USAALT [Catalytic activity/Vol]22 U/LNormal7-52The [facility] Physician GroupComment on above:Performed By: #### HS TROP, CMP, CBC #### [place] [address] USAAnion gap [Moles/Vol]8.4 mmol/LNormal6.0-15.0The [facility] Physician GroupComment on above:Performed By: #### HS TROP, CMP, CBC #### [place] [address] USAAST [Catalytic activity/Vol]21 U/BPaecxl37-11Zeu [facility] Physician GroupComment on above:Performed By: #### HS TROP, CMP, CBC #### [place] [address] USABilirubin [Mass/Vol]0.5 mg/dLNormal0.3-1.0The [facility] Physician GroupComment on above:Performed By: #### HS TROP, CMP, CBC #### [place] [address] USACalcium [Mass/Vol]8.3 mg/dLLow8.6-10.3The [facility] Physician GroupComment on above:Performed By: #### HS TROP, CMP, CBC #### [place] [address] USAChloride [Moles/Vol]104 mmol/YXmyphl67-323Ema [facility] Physician GroupComment on above:Performed By: #### HS TROP, CMP, CBC #### [place] [address] USACO2 [Moles/Vol]29.6 mmol/DIknucb50.0-31.0The [facility] Physician GroupComment on above:Performed By: #### HS TROP CMP, CBC #### [place] [address] USACreatinine [Mass/Vol]1.08 mg/dLNormal0.70-1.30The [facility] Physician GroupComment on above:Performed By: #### HS TROP, CMP, CBC #### [place] [address] USACreatinine Clr Calc Hljhsvni51.85NormTampa Shriners Hospital Physician GroupComment on above:Result Comment: PERFORMED BY: [place] [address] PATHOLOGIST JOB SPOTTER DARNELL LIZAMA M.D.Performed By: #### HS TROP CMP, CBC #### [place] [address] USAGFR/1.73 sq M.predicted MDRD (S/P/Bld) [Vol rate/Area] mL/min/{1.73_m2}NormalThe [facility] Physician GroupComment on above:Performed By: #### HS TROP, CMP, CBC #### [place] [address] USAGlobulin (S) [Mass/Vol]2.4 g/dLNoUNC Health Physician GroupComment on above:Performed By: #### HS TROP, CMP, CBC #### [place] [address] USAGlucose [Mass/Vol]133 mg/vTGlxv94-727Ctk [facility] Physician GroupComment on above:Result Comment: Random Glucose Reference Range is dependent on time and content of last meal. Glucose of more than 200 mg/dL in a nonstressed, ambulatory subject supports the diagnosis of Diabetes Mellitus. ADA recommended reference rangePerformed By: #### HS TROP, CMP, CBC #### [place] [address] USAPotassium [Moles/Vol]4.0 mmol/LNormal3.5-5.1The [facility] Physician GroupComment on above:Performed By: #### HS TROP, CMP, CBC #### [facility] [address] [place] [address] USAProtein [Mass/Vol]5.8 g/dLLow6.4-8.9The [facility] Physician GroupComment on above:Performed By: #### HS TROP, CMP, CBC #### [facility] [address] [place] [address] USASodium [Moles/Vol]138 mmol/LXqfwan030-728Esy [facility] Physician [facility] HospitalComment on above:Performed By: #### HS TROP, CMP, CBC #### [facility] [address] [place] [address] USAUrea nitrogen [Mass/Vol]15 mg/dLNormal7-25The [facility] Physician GroupComment on above:Performed By: #### HS TROP, CMP, CBC #### [facility] [address] [place] [address] USACreatinine [Mass/volume] in Serum or PlasmaOrdered By: Josue Leigh on 65-18-8746Spxwcljcrf [Mass/Vol]Creatinine [Mass/volume] in Serum or Plasma0.70-1.30St[facility]'S HospitalECG 12 lead ECGon 99-50-8477EBJ 12 lead ECGUNIVERS[facility] Main [place] [address] [place] [address] Electrocardiograph Report Signed Patient: Emigdio Jeogn III MR#: [id number] : 1940 Acct:[id number] Age/Sex: 84 / M ADM Date: 11/02/24 Loc: ER Room: Type: [facility] ER Attending Dr: Ordering Provider: Josue Leigh [...] branch block Confirmed by Josue LEIGH DO ([id number]) on 11/02/2024 8:52:56 PM Referred By: Electronically Signed By: Josue LEIGH DO Transcribed By: MUS Signed By Josue Leigh DO 0 11/02/242051[facility] Physician GroupEosinophils Auto (Bld) [#/Vol] Ordered By: Josue Leigh on 33-77-8114Qgnhhqrycbf (Bld) [#/Vol]Automated eosinophil count0.0-0.45St. [facility]S HospitalEosinophils/100 WBC Auto (Bld)Ordered By: Josue Leigh on 63-65-4368Eswvomdulkq/100 WBC (Bld) Automated eosinophil %.[facility]S HospitalErythrocyte distribution width Auto (RBC) [Ratio]Ordered By: Josue Leigh on 77-98-3834Mdlonwiebwm distribution width (RBC) [Ratio]Erythrocyte distribution width [Ratio] by Automated mldnaUhva72.0-14.8St[facility]'S HospitalGlobulin Calc (S) [Mass/Vol]Ordered By: Josue Leigh on 95-98-0736Dinyjoti (S) [Mass/Vol] Serum globulin measurement by calculation (mass/volume)[facility]S HospitalGlucose [Mass/volume] in Serum or PlasmaOrdered By: Josue Leigh on 74-56-6415Hejwbvp [Mass/Vol]Glucose [Mass/volume] in Serum or Plasma Nabq22-380WenxiziktSt. Anthony'S HospitalComment on above:ADA recommended reference rangeRandom Glucose Reference Range is dependent on time and content of last meal. Glucose of more than 200 mg/dL in a nonstressed, ambulatory subject supports the diagnosisof Diabetes Mellitus.Hematocrit Auto (Bld) [Volume fraction]Ordered By: Josue Leigh on 89-92-6558Sztknynull (Bld) [Volume fraction]Hematocrit [Volume Fraction] of Blood by Automated count38.8-50.[address] [facility] [facility]S HospitalHemoglobin [Mass/volume] in BloodOrdered By: Josue Leigh on 96-21-7168Otgfwfumjt (Bld) [Mass/Vol]Hemoglobin [Mass/volume] in OejllVjo17.0-17.0St[facility]S HospitalLeukocytes [#/volume] corrected for nucleated erythrocytes in Blood by Automated coun Ordered By: Josue Leigh on 94-97-1977VKX corrected for nucl RBC Auto (Bld) [#/Vol]Leukocytes [#/volume] corrected for nucleated erythrocytes in Blood by Automated coun4.1-10.5FMercy Health St. Joseph Warren HospitalLymphocytes Auto (Bld) [#/Vol]Ordered By: Josue Leigh on 21-41-1240Udppzhydmnv (Bld) [#/Vol] Lymphocytes [#/volume] in Blood by Automated count1.00-4.8St[facility]S HospitalLymphocytes/100 WBC Auto (Bld)Ordered By: Josue Leigh on 93-53-3919Pponmemqpkv/100 WBC (Bld)Lymphocytes/100 leukocytes in Blood by Automated count.The Jewish HospitalH Auto (RBC) [Entitic mass] Ordered By: Josue Leigh on 97-40-5743TRT (RBC) [Entitic mass]MCH [Entitic mass] by Automated gscdxLqz56.5-35.2FMercy Health St. Joseph Warren HospitalMCHC Auto (RBC) [Mass/Vol]Ordered By: Josue Leigh on 88-84-7362RNUF (RBC) [Mass/Vol] MCHC [Mass/volume] by Automated gxlhuGqd42.5-35.6FMercy Health St. Joseph Warren HospitalMCV Auto (RBC) [Entitic vol]Ordered By: Josue Leigh on 39-92-0401EXK (RBC) [Entitic vol]MCV [Entitic volume] by Automated ctylxAva12.5-101St. [facility]'S HospitalMonocyte distribution width [Entitic volume] in Blood by AutomatedOrdered By: Josue Leigh on 21-66-6790Wiwnlvpc distribution width Auto (Bld) [Entitic vol]Monocyte distribution width [Entitic volume] in Blood by Automated0.00-20.00St[facility]S HospitalMonocytes Auto (Bld) [#/Vol] Ordered By: Josue Leigh on 49-44-0628Dpomrdicm (Bld) [#/Vol]Automated blood monocyte count0.0-0.8St. [facility]S HospitalMonocytes/100 WBC Auto (Bld)Ordered By: Josue Leigh on 78-79-6191Xtgnkgiqy/100 WBC (Bld) Automated monocyte %.[facility]'S HospitalNeutrophils Auto (Bld) [#/Vol]Ordered By: Josue Leigh on 45-68-0470Ygqwnesbstj (Bld) [#/Vol] Neutrophils [#/volume] in Blood by Automated count1.8-7.7FMercy Health St. Joseph Warren HospitalNeutrophils/100 WBC Auto (Bld)Ordered By: Josue Leigh on 27-72-9291Insdsncfyul/100 WBC (Bld)Automated neutrophil %.[facility]S HospitalNo Panel InformationOrdered By: Josue Leigh on 11-02-2024 Estimated GFR (CKD-EPI)> 60.0 mL/MinSt. Anthony'S HospitalPharmacy Creatinine Clearance (Chem65.85St. [facility]'S HospitalNucleated erythrocytes [Presence] in Blood by Automated countOrdered By: Josue Leigh on 10-30-9671Umninliii RBC Auto Ql (Bld)Nucleated erythrocytes [Presence] in Blood by Automated count0-0.5FMercy Health St. Joseph Warren HospitalPlatelet mean volume Auto (Bld) [Entitic vol]Ordered By: Josue Leigh on 11-02-2024 Platelet mean volume (Bld) [Entitic vol]Platelet mean volume [Entitic volume] in Blood by Automated count6.6-10.1FMercy Health St. Joseph Warren HospitalPlatelets Auto (Bld) [#/Vol]Ordered By: Josue Leigh on 97-20-9066Lgcpyxnxu (Bld) [#/Vol] Platelets [#/volume] in Blood by Automated wwsecYwr501-109IcanztnhkSt. Anthony'S HospitalPotassium [Moles/volume] in Serum or PlasmaOrdered By: Josue Leigh on 38-83-0259Txinbbhkl [Moles/Vol]Potassium [Moles/volume] in Serum or Plasma3.5-5.1FMercy Health St. Joseph Warren HospitalProtein [Mass/volume] in Serum or PlasmaOrdered By: Josue Leigh on 12-11-6818Fivgcnt [Mass/Vol]Protein [Mass/volume] in Serum or PlasmaLow6.4-8.9St. [facility]S HospitalRBC Auto (Bld) [#/Vol]Ordered By: Josue Leigh on 64-52-8234ELT (Bld) [#/Vol] Erythrocytes [#/volume] in Blood by Automated count3.90-5.60[facility] Orthopedic Centererum or plasma albumin/globulin mass ratioOrdered By: Josue Leigh on 77-97-1706Qxpyecf/Globulin [Mass ratio]Serum or plasma albumin/globulin mass ratioCrystal Clinic Orthopedic Centererum or plasma anion gap determinationOrdered By: Josue Leigh on 20-24-8975Bhdlz gap [Moles/Vol]Serum or plasma anion gap determination6.0-15.0[facility] Clinic Orthopedic Centerodium [Moles/volume] in Serum or PlasmaOrdered By: Josue Leigh on 73-81-8829Lellsr [Moles/Vol]Sodium [Moles/volume] in Serum or Plasma 136-145St. [facility]'S HospitalTroponin I High Sensitivityon 11-02-2024 Troponin I High Imcrlptmupb86Oiotdq7-52Mpq [facility] Physician GroupComment on above:Result Comment: The Troponin units of report have been changed to meet the Chest Pain Accreditation requirement, element EC5.M1l2. Troponin units are changed from pg/ml to ng/L. Also, the decimal is removed and results are in whole numbers. PERFORMED BY: [place] [address] PATHOLOGIST JOB SPOTTER DARNELL LIZAMA M.D.Performed By: #### HS TROP, CMP, CBC #### [place] [address] USATroponin I.cardiac [Mass/volume] in Serum or Plasma by Detection limit <= 0.01 ng/Ordered By: Josue Leigh on 38-88-9218Nbysdphs I.cardiac DL <= 0.01 ng/mL [Mass/Vol]Troponin I.cardiac [Mass/volume] in Serum or Plasma by Detection limit <= 0.01 ng/0-20[facility] Comment on above:The Troponin units of report have been changed to meet the Chest Pain Accreditation requirement, element EC5.M1l2. Troponin units are changed from pg/ml to ng/L. Also, the decimal is removed and results are in whole numbers.Urea nitrogen [Mass/volume] in Serum or PlasmaOrdered By: Josue Leigh on 66-94-1649Blhx nitrogen [Mass/Vol]Urea nitrogen [Mass/volume] in Serum or Plasma12-30St. [facility]'S HospitalWBC Auto (Bld) [#/Vol]Ordered By: Josue Leigh on 94-63-9789STL (Bld) [#/Vol] Leukocytes [#/volume] in Blood by Automated count4.1-10.5FMercy [facility] HospitalX-ray reportOrdered By: Pako Hassan on [id number] report [facility] Main [place] [id number] XRay Report Signed Patient: Emigdio Jeong III MR#: [id number] : 1940 Acct:[id number] Age/Sex: 84 / M ADM Date: 5 Loc: ER Room: Type: [facility] ER Attending Dr: Copies to: Josue Leigh DO~ Ordering Provider: Josue Leigh DO Date of Service: 11/02/24 XR/XR knee LT 4V*: FALL 4 views of the left knee INDICATION: Fall COMPARISON: x-ray 06/21/2021: FINDINGS: Prior ORIF of the tibia noted. Mild tricompartmental degenerative changes at level of theknee. No fracture dislocation. Surgical clips identified along the lower extremity. Moderate soft tissue swelling anterior aspect of the knee. XR/XR knee LT 4V* IMPRESSION: Mild degenerative changes. Negative for fracture or dislocation. Moderate anterior kneesoft tissue swelling, nonspecific. Impression dictated by: Pako Hassan M.D. 11/02/2024 6:49 PM Dictation Location: [place] [address] Transcribed By: [facility] 11/02/241848 Dictated By: Pako Hassan MD 11/02/241846 Signed By: 11/02/241848 [facility] Work Phone: Study report[facility] Main [address] [address] XRay Report Signed Patient: Emigdio Jeong III MR#: [id number] : 1940 Acct:[id number] Age/Sex: 84 / M ADM Date: 5 Loc: ER Room: Type: [facility] ER Attending Dr: Copies to: Josue [...] Pako Hassan MD 11/02/241842 Signed By: 11/02/241843 [facility] Work Phone: XR chest 2V*on 64-21-7440KM chest 2V*[facility] Main [place] [address] [place] [address] XRay Report Signed Patient: Emigdio Jeong III MR#: [id number] : 1940 Acct:[id number] Age/Sex: 84 / M ADM Date: 11/02/24 Loc: ER Room: Type: [facility] ER Attending Dr: Copies to: Josue [...] By: Pako Hassan MD 11/02/241842 Signed By: 11/02/24 184[facility] Physician GroupXR knee LT 4V*on 68-88-4473EC knee LT 4V*[facility] Main [place] [address] [place] [address] XRay Report Signed Patient: Emigdio Jeong III MR#: [id number] : 1940 Acct:[id number] Age/Sex: 84 / M ADM Date: 11/02/24 Loc: ER Room: Type: [facility] ER Attending Dr: Copies to: Josue [...] Hassan M.D. 11/02/2024 6:49 PM Dictation Location: [place] [address] Transcribed By: [facility] 11/02/241848 Dictated By: Pako Hassan MD 11/02/241846 Signed By: 11/02/24 184[facility] Physician GroupLaboratory - Cytologyon 80-64-0137Baxrkqmdeua observation Cyto stain Nom (Cvx)3.3NOIN HealthcareNo Panel Informationon 11-04-3232Okuoasbdrtispg and review of laboratory resultsNormal [facility] HealthcareHE[facility] HealthcareLaboratory - Cytologyon 14-21-0132Cdgjnlfpobp observation Cyto stain Nom (Cvx)3.7NOIN HealthcareNo Panel Informationon 05-87-8999XIQL HealthcareLaboratory - Cytologyon 78-13-3503Fdgrrbnccln observation Cyto stain Nom (Cvx)4.7NOIN HealthcareNo Panel Informationon 11-31-2179AJZL HealthcareLaboratory - Cytologyon 02-16-4234Shyjxiiofcf observation Cyto stain Nom (Cvx)2.3NOIN HealthcareNo Panel Informationon 89-82-5724Xfibavibkrpupz and review of laboratory resultsNormalNOIN Healthcare NOMS HealthcareLaboratory - Cytologyon 17-43-8176Vzxqtpqqszw observation Cyto stain Nom (Cvx)7.7NOIN HealthcareNo Panel Informationon 71-48-5584OREN HealthcareURINALYSIS MICROSCOPIC WITH REFLEX CULTUREon 43-04-2294BGTZBSRWP SEDIMENT URINEMANYNOMS HealthcareBACTERIA URINENONE SEENNONE SEEN #/HPFHEBER VALLEY MEDICAL CENTER HealthcareBILIRUBIN URINENegativeNEGATIVENOIN HealthcareBLOOD URINENegative NEGATIVENOIN HealthcareCAST SEEN?NONE SEENNONE SEEN #/LPFHEBER VALLEY MEDICAL CENTER HealthcareClarity (U)CLOUDYAbnormalCLEARNOIN HealthcareColor (U)YELLOWYELLOWHEBER VALLEY MEDICAL [facility]ENTER Healthcare CRYSTALS SEEN?SeenAbnormalNone Seen #/HPFSaint [facility] University Health Science CenterGLUCOSE URINE UANegative NEGATIVE mg/dLHEBER VALLEY MEDICAL [facility]ENTER HealthcareInterpretation and review of laboratory results AbnormalNOIN HealthcareKetones Ql (U)NegativeNEGATIVE mg/dLNOIN Healthcare Leukocyte esterase Test strip Ql (U)NegativeNEGATIVENOIN HealthcareMUCUS URINE NONE SEENNONE SEENNOIN HealthcareNITRITE URINENegativeNEGATIVENOIN HealthcarepH (U)6.0 [pH]5.0 - 9.0NOIN HealthcarePROTEIN URINENegativeNEG/TRACE mg/dLNOHawthorn Children's Psychiatric HospitalSPECIFIC GRAVITY URINE1.0251.005 - 1.025NOHawthorn Children's Psychiatric HospitalSQUAMOUS EPITHELIAL CELL URINERARENONE/RARE #/LPFSaint [facility] University Health Science CenterTBH CALCIUM OXALATE CRYSTALS URINERARENOMS HealthcareTBH RBC0-2NOMS HealthcareTBH WBCNONE SEENNONE SEEN #/HPFNOIN HealthcareURINE CULTURE INDICATEDNONOMS HealthcareUROBILINOGEN URINE0.2 EU/dL0.2 - 1.0 EU/dLNOIN HealthcareCLINISYNCNBAILEY MEDICAL CENTER – [place] HealthcareCBC (H/H, RBC, INDICES, WBC, PLT)on 85-78-6930Wxqnogvfbfm distribution width (RBC) [Ratio] 17.1 %High11.0-15.0Quest DiagnosticsComment on above:Performed By: #### 72953, 8919 #### [facility] [place] [address] [facility], [address] [place] [address] Channel Sales Director: Murray Sprague MDHematocrit (Bld) [Volume fraction]45.8 %Normal 38.5-50.0Quest DiagnosticsComment on above:Performed By: #### 35680, 1759 #### [facility] [address], [address] [place] [address] Channel Sales Director: Murray Sprague MDHemoglobin (Bld) [Mass/Vol]13.9 g/dLNormal 13.2-17.1Quest DiagnosticsComment on above:Performed By: #### 16663, 1759 #### [facility] [address], [address] [place] [address] Channel Sales Director: Murray Sprague MDMCH (RBC) [Entitic mass]24.5 pgLow27.0-33.0 Quest DiagnosticsComment on above:Performed By: #### 38190, 1759 #### [facility] [address], [address] [place] [address] Channel Sales Director: Murray Sprague MDMCHC (RBC) [Mass/Vol]30.3 g/dLLow32.0-36.0 Quest DiagnosticsComment on above:Result Comment: For adults, a slight decrease in the calculated MCHC value (in the range of 30 to 32 g/dL) is most likely not clinically significant; however, it should be interpreted with caution in correlation with other red cell parameters and the patient's clinical condition.Performed By: #### 49917, 1759 #### [facility] [place] [address] Channel Sales Director: Murray Sprague MDMCV (RBC) [Entitic vol]80.8 nVDnluis81.0-100.0 Quest DiagnosticsComment on above:Performed By: #### 68379, 1759 #### [facility] [address], [address] [place] [address] Channel Sales Director: Murray Sprague MDPlatelet mean volume (Bld) [Entitic vol]11.4 fLNormal7.5-12.5Quest DiagnosticsComment on above:Performed By: #### 24876, 1759 #### [facility] of [address], [address] [place] [address] Channel Sales Director: Murray Sprague [facility] [place] ([facility]) [#/Vol]141 10*3/uLNormal 140-400Quest DiagnosticsComment on above:Performed By: #### 55055, 1759 #### [facility] of [address], [address] [place] [address] Channel Sales Director: Murray Sprague [facility] ([facility]) [#/Vol]5.67 10*6/uLNormal4.20-5.80 Quest DiagnosticsComment on above:Performed By: #### 96546, 1759 #### [facility] of [address], [address] [place] [address] Channel Sales Director: Murray Sprague [facility] ([facility]) [#/Vol]4.4 10*3/uLNormal3.8-10.8 Quest DiagnosticsComment on above:Performed By: #### 72634, 1759 #### [facility] of [address], [address] [place] [address] Channel Sales Director: Murray Sprague MDCOMPREHENSIVE METABOLIC PANELon 06-22-2024 Albumin [Mass/Vol]4.0 g/dLNormal3.6-5.1Quest DiagnosticsComment on above:Order Comment: FASTING:UNKNOWN FASTING: UNKNOWNPerformed By: #### 45257, 1759 #### [facility] of [address], [address] [place] [address] Channel Sales Director: Murray Sprague MDAlbumin/Globulin [Mass ratio]1.7 {ratio}Normal 1.0-2.5Quest DiagnosticsComment on above:Order Comment: FASTING:UNKNOWN FASTING: UNKNOWNPerformed By: #### 85080, 1759 #### [facility] of [address], [address] [place] [address] Channel Sales Director: Murray Sprague MDALP [Catalytic activity/Vol]58 U/ZTrmivc50-037 Quest DiagnosticsComment on above:Order Comment: FASTING:UNKNOWN FASTING: UNKNOWNPerformed By: #### 75197, 1759 #### [facility] [address], [address] [place] [address] Channel Sales Director: Murray Sprague MDALT [Catalytic activity/Vol]17 U/LNormal9-46 [facility] DiagnosticsComment on above:Order Comment: FASTING:UNKNOWN FASTING: UNKNOWNPerformed By: #### 57612, 1759 #### [facility] [place] [address] Channel Sales Director: Murray Sprague MDAST [Catalytic activity/Vol]24 U/QZyjumb22-36 [facility] DiagnosticsComment on above:Order Comment: FASTING:UNKNOWN FASTING: UNKNOWNPerformed By: #### 44585, 1759 #### [facility] [address], [address] [place] [address] Channel Sales Director: Murray Sprague MDBilirubin [Mass/Vol]0.9 mg/dLNormal0.2-1.2 Quest DiagnosticsComment on above:Order Comment: FASTING:UNKNOWN FASTING: UNKNOWNPerformed By: #### 27803, 1759 #### [facility] [place] [address] Channel Sales Director: Murray Sprague MDBUN/CREATININE RATIOSEE NOTE:Normal6-22Quest DiagnosticsComment on above:Order Comment: FASTING:UNKNOWN FASTING: UNKNOWNResult Comment: Not Reported: BUN and Creatinine are within reference range.Performed By: #### 52841, 1759 #### [facility] [place] [address] Channel Sales Director: Murray Sprague MDCalcium [Mass/Vol]8.7 mg/dLNormal8.6-10.3Quest DiagnosticsComment on above:Order Comment: FASTING:UNKNOWN FASTING: UNKNOWNPerformed By: #### 36014, 1759 #### [facility] of [address], [address] [place] [address] Channel Sales Director: Murray AVERYhloride [Moles/Vol]100 mmol/TQusodv31-248 [facility] DiagnosticsComment on above:Order Comment: FASTING:UNKNOWN FASTING: UNKNOWNPerformed By: #### 24645, 1759 #### [facility] [address], [address] [place] [address] Channel Sales Director: Murray Sprague MDCO2 [Moles/Vol]30 mmol/BVotybv01-74Qmemp DiagnosticsComment on above:Order Comment: FASTING:UNKNOWN FASTING: UNKNOWNPerformed By: #### 04174, 1759 #### [facility] [place] [address] Channel Sales Director: Murray AVERYreatinine [Mass/Vol]1.22 mg/dLNormal0.70-1.22 Quest DiagnosticsComment on above:Order Comment: FASTING:UNKNOWN FASTING: UNKNOWNPerformed By: #### 90517, 1759 #### [facility] [place] [address] Channel Sales Director: Murray Sprague MDGFR/1.73 sq M.predicted among non-blacks MDRD (S/P/Bld) [Vol rate/Area]60 mL/min/{1.73_m2}Normal> OR = 60[facility] Comment on above:Order Comment: FASTING:UNKNOWN FASTING: UNKNOWNPerformed By: #### 61690, 1759 #### [facility] of [address], [address] [place] [address] Channel Sales Director: Murray Sprague MDGlobulin (S) [Mass/Vol]2.4 g/dLNormal1.9-3.7 [facility] DiagnosticsComment on above:Order Comment: FASTING:UNKNOWN FASTING: UNKNOWNPerformed By: #### 72668, 1759 #### [facility] [address], [address] [place] [address] Channel Sales Director: Murray Sprague MDGlucose [Mass/Vol]77 mg/tLWdjymk07-32Ikcam DiagnosticsComment on above:Order Comment: FASTING:UNKNOWN FASTING: UNKNOWNResult Comment: Fasting reference intervalPerformed By: #### 88698, 1759 #### [facility] [place] [address] Channel Sales Director: Murray Sprague MDPotassium [Moles/Vol]4.0 mmol/LNormal3.5-5.3 Quest DiagnosticsComment on above:Order Comment: FASTING:UNKNOWN FASTING: UNKNOWNPerformed By: #### 37776, 1759 #### [facility] [place] [address] Channel Sales Director: Murray Sprague MDProtein [Mass/Vol]6.4 g/dLNormal6.1-8.1Quest DiagnosticsComment on above:Order Comment: FASTING:UNKNOWN FASTING: UNKNOWNPerformed By: #### 59699, 1759 #### [facility] [place] [address] Channel Sales Director: Murray Sprague MDSodium [Moles/Vol]138 mmol/LUyswka535-504Uhddj DiagnosticsComment on above:Order Comment: FASTING:UNKNOWN FASTING: UNKNOWNPerformed By: #### 55664, 1759 #### [facility] [place] [address] Channel Sales Director: Murray Sprague MDUrea nitrogen [Mass/Vol]21 mg/dLNormal7-25 [facility] DiagnosticsComment on above:Order Comment: FASTING:UNKNOWN FASTING: UNKNOWNPerformed By: #### 34413, 1759 #### [facility] of [place] [address] Channel Sales Director: Murray Sprague MDLaboratory - Cytologyon 24-85-9417Gqqwgpsomhi observation Cyto stain Nom (Cvx)4.7NOMS HealthcareNo Panel Informationon 14-67-8559WAMU HealthcareCBC (INCLUDES DIFF/PLT)on 43-60-5639Qpkbedoin (Bld) [#/Vol]0.052 10*3/uLNormal0-200Quest DiagnosticsComment on above:Performed By: #### 05749, 6399 #### [facility] of [place] [address] Channel Sales Director: Murray Sprague MDBasophils/100 WBC (Bld)1.0 %NormalQuest DiagnosticsComment on above:Performed By: #### 60159, 6399 #### [facility] of [address], [address] [place] [address] Channel Sales Director: Murray Sprague MDEosinophils (Bld) [#/Vol]0.099 10*3/uLNormal 15-500Quest DiagnosticsComment on above:Performed By: #### 25213, 6399 #### [facility] of [place] [address] Channel Sales Director: Murray MORALESosinophils/100 WBC (Bld)1.9 %NormalQuest DiagnosticsComment on above:Performed By: #### 85427, 6399 #### [facility] of [place] [address] Channel Sales Director: Murray Sprague MDErythrocyte distribution width (RBC) [Ratio] 16.9 %High11.0-15.0Quest DiagnosticsComment on above:Performed By: #### 51916, 6399 #### [facility] of [place] [address] Channel Sales Director: Murray Sprague MDHematocrit (Bld) [Volume fraction]41.8 %Normal 38.5-50.0Quest DiagnosticsComment on above:Performed By: #### 64366, 6399 #### [facility] of [place] [address] Channel Sales Director: Murray Sprague MDHemoglobin (Bld) [Mass/Vol]13.0 g/dLLow 13.2-17.1Quest DiagnosticsComment on above:Performed By: #### 50425, 6399 #### [facility] of [address], [address] [place] [address] Channel Sales Director: Murray Sprague MDLymphocytes (Bld) [#/Vol]1.05 10*3/uLNormal 850-3900Quest DiagnosticsComment on above:Performed By: #### 02734, 6399 #### [facility] of [address], [address] [place] [address] Channel Sales Director: Murray Sprgaue MDLymphocytes/100 WBC (Bld)20.2 %NormalQuest DiagnosticsComment on above:Performed By: #### 54907, 6399 #### [facility] of [address], [address] [place] [address] Channel Sales Director: Murray Sprague MDMCH (RBC) [Entitic mass]24.4 pgLow27.0-33.0 Quest DiagnosticsComment on above:Performed By: #### 35396, 6399 #### [facility] of [place] [address] Channel Sales Director: Murray ISLASCHC (RBC) [Mass/Vol]31.1 g/dLLow32.0-36.0 [facility] DiagnosticsComment on above:Result Comment: For adults, a slight decrease in the calculated MCHC value (in the range of 30 to 32 g/dL) is most likely not clinically significant; however, it should be interpreted with caution in correlation with other red cell parameters and the patient's clinical condition.Performed By: #### 73783, 6399 #### [facility] of [address], [address] [place] [address] Channel Sales Director: Murray Sprague MDMCV (RBC) [Entitic vol]78.4 fLLow80.0-100.0 Quest DiagnosticsComment on above:Performed By: #### 19224, 6399 #### [facility] of [address], [address] [place] [address] Channel Sales Director: Murray Sprague MDMonocytes (Bld) [#/Vol]0.634 10*3/uLNormal 200-950Quest DiagnosticsComment on above:Performed By: #### 48865, 6399 #### [facility] of [address], [address] [place] [address] Channel Sales Director: Murray Sprague MDMonocytes/100 WBC (Bld)12.2 %NormalQuest DiagnosticsComment on above:Performed By: #### 60336, 6399 #### [facility] of [address], [address] [place] [address] Channel Sales Director: Murray Sprague MDNeutrophils (Bld) [#/Vol]3.364 10*3/uLNormal 1500-7800Quest DiagnosticsComment on above:Performed By: #### 27551, 6399 #### [facility] of [address], [address] [place] [address] Channel Sales Director: Murray Sprague MDNeutrophils/100 WBC (Bld)64.7 %NormalQuest DiagnosticsComment on above:Performed By: #### 94238, 6399 #### [facility] of [address], [address] [place] [address] Channel Sales Director: Murray Sprague MDPlatelet mean volume (Bld) [Entitic vol]11.1 fLNormal7.5-12.5Quest DiagnosticsComment on above:Performed By: #### 36799, 6399 #### [facility] of [address], [address] [place] [address] Channel Sales Director: Murray Sprague MDPlatelets (Bld) [#/Vol]171 10*3/uLNormal 140-400Quest DiagnosticsComment on above:Performed By: #### 48291, 6399 #### [facility] of [address], [address] [place] [address] Channel Sales Director: Murray Sprague MDRBC (Bld) [#/Vol]5.33 10*6/uLNormal4.20-5.80 [facility] DiagnosticsComment on above:Performed By: #### 29284, 6399 #### [facility] [address], [address] [place] [address] Channel Sales Director: Murray Sprague [facility] MEDICAL CENTERBC (Bld) [#/Vol]5.2 10*3/uLNormal3.8-10.8 [facility] DiagnosticsComment on above:Performed By: #### 03140, 6399 #### [facility] [address], [address] [place] [address] Channel Sales Director: Murray Sprague [facility] W Auto Differential panel (Bld)on 84-21-7501Wogpffebk (Bld) [#/Vol]52 10*3/uLNOMS HealthcareBasophils/100 WBC (Bld)1 %NOMS HealthcareEosinophils (Bld) [#/Vol]99 10*3/uLNOMS Healthcare Eosinophils/100 WBC (Bld)1.9 %NOMS HealthcareErythrocyte distribution width (RBC) [Ratio]16.9 %High11.0 - 15.0 %NOM HealthcareHematocrit (Bld) [Volume fraction]41.8 %38.5 - 50.0 %NOM HealthcareHemoglobin (Bld) [Mass/Vol]13 g/dLLow 13.2 - 17.1 g/dLHEBER VALLEY MEDICAL [facility]ENTER HealthcareLymphocytes (Bld) [#/Vol]1050 10*3/uLNOMS HealthcareLymphocytes/100 WBC (Bld)20.2 %[facility] Science CenterMCH (RBC) [Entitic mass] 24.4 pgLow27.0 - 33.0 pgSaint Louis University Health Science CenterMCHC (RBC) [Mass/Vol]31.1 g/dLLow32.0 - 36.0 g/dLNOIN HealthcareComment on above:For adults, a slight decrease in the calculated MCHC value (in the range of 30 to 32 g/dL) is most likely not clinically significant; however, it should be interpreted with caution in correlation with other red cell parameters and the patient's clinical condition. MCV (RBC) [Entitic vol]78.4 fLLow80.0 - 100.0 fLNOIN HealthcareMonocytes (Bld) [#/Vol]634 10*3/[facility] HealthcareMonocytes/100 WBC (Bld)12.2 %[facility] Neutrophils (Bld) [#/Vol]3364 10*3/[facility] HealthcareNeutrophils/100 WBC (Bld) 64.7 %NOMS HealthcarePlatelet mean volume (Bld) [Entitic vol]11.1 fL7.5 - 12.5 fLHEBER VALLEY MEDICAL CENTER HealthcarePlatelets (Bld) [#/Vol]171 10*3/[facility] HealthcareRBC (Bld) [#/Vol]5.33 10*6/[facility] HealthcareWBC (Bld) [#/Vol]5.2 10*3/[facility] COMPREHENSIVE METABOLIC PANELon 37-96-6436Hdolbfp [Mass/Vol]4.0 g/dLNormal 3.6-5.1Quest DiagnosticsComment on above:Performed By: #### 01648, 6399 #### [facility] [place] [address] Channel Sales Director: Murray Sprague MDAlbumin/Globulin [Mass ratio]1.8 {ratio}Normal 1.0-2.5Quest DiagnosticsComment on above:Performed By: #### 02132, 6399 #### [facility] [place] [address] Channel Sales Director: Murray Sprague MDALP [Catalytic activity/Vol]70 U/UAtqfmp22-337 [facility] DiagnosticsComment on above:Performed By: #### 56371, 6399 #### [facility] [place] [address] Channel Sales Director: Murray Sprague MDALT [Catalytic activity/Vol]17 U/LNormal9-46 [facility] DiagnosticsComment on above:Performed By: #### 30881, 6399 #### [facility] [place] [address] Channel Sales Director: Murray Sprague MDAST [Catalytic activity/Vol]16 U/XBpzlni97-40 [facility] DiagnosticsComment on above:Performed By: #### 05009, 6399 #### [facility] of [address], [address] [place] [address] Channel Sales Director: Murray Sprague MDBilirubin [Mass/Vol]0.6 mg/dLNormal0.2-1.2 [facility] DiagnosticsComment on above:Performed By: #### 48166, 6399 #### [facility] of [address], [address] [place] [address] Channel Sales Director: Murray Sprague MDBUN/CREATININE RATIOSEE NOTE:Normal6-22Quest DiagnosticsComment on above:Result Comment: Not Reported: BUN and Creatinine are within reference range.Performed By: #### 93706, 6399 #### [facility] of [address], [address] [place] [address] Channel Sales Director: Murray AVERYalcium [Mass/Vol]9.0 mg/dLNormal8.6-10.3Quest DiagnosticsComment on above:Performed By: #### 18429, 6399 #### [facility] of [address], [address] [place] [address] Channel Sales Director: Murray Sprague MDChloride [Moles/Vol]103 mmol/RYemgkj12-098 [facility] DiagnosticsComment on above:Performed By: #### 88493, 6399 #### [facility] of [address], [address] [place] [address] Channel Sales Director: Murray Sprague MDCO2 [Moles/Vol]29 mmol/HWfydlv92-54Tkkwk DiagnosticsComment on above:Performed By: #### 64276, 6399 #### [facility] of [address], [address] [place] [address] Channel Sales Director: Murray AVERYreatinine [Mass/Vol]1.17 mg/dLNormal0.70-1.22 [facility] DiagnosticsComment on above:Performed By: #### 62621, 6399 #### [facility] of [place] [address] [place] [address] Channel Sales Director: Murray Sprague MDGFR/1.73 sq M.predicted among non-blacks MDRD (S/P/Bld) [Vol rate/Area]63 mL/min/{1.73_m2}Normal> OR = 60[facility] Comment on above:Performed By: #### 75514, 6399 #### [facility] [place] [address] Channel Sales Director: Murray Sprague MDGlobulin (S) [Mass/Vol]2.2 g/dLNormal1.9-3.7 [facility] DiagnosticsComment on above:Performed By: #### 71919, 6399 #### [facility] [place] [address] Channel Sales Director: Murray Sprague MDGlucose [Mass/Vol]149 mg/lTVsyv62-93Qohla DiagnosticsComment on above:Result Comment: Fasting reference interval For someone without known diabetes, a glucose value >125 mg/dL indicates that they may have diabetes and this should be confirmed with a follow-up test.Performed By: #### 88610, 6399 #### [facility] [place] [address] Channel Sales Director: Murray Sprague MDPotassium [Moles/Vol]3.9 mmol/LNormal3.5-5.3 [facility] DiagnosticsComment on above:Performed By: #### 78027, 6399 #### [facility] [place] [address] Channel Sales Director: Murray Sprague MDProtein [Mass/Vol]6.2 g/dLNormal6.1-8.1Quest DiagnosticsComment on above:Performed By: #### 03092, 6399 #### [facility] [place] [address] Channel Sales Director: Murray Sprague MDSodium [Moles/Vol]140 mmol/AHlifqw880-816Znzod DiagnosticsComment on above:Performed By: #### 44676, 6399 #### [facility] [address], [address] [place] [address] Channel Sales Director: Murray Sprague MDUrea nitrogen [Mass/Vol]12 mg/dLNormal7-25 [facility] DiagnosticsComment on above:Performed By: #### 24715, 6399 #### [facility] [address], [address] [place] [address] Channel Sales Director: Murray Sprague MDLaboratory - Chemistry and Chemistry - challenge [id number] [Mass/Vol]4 g/dL3.6 - 5.1 g/dLNOIN Healthcare Albumin/Globulin [Mass ratio]1.8 {ratio}NOMS HealthcareALP [Catalytic activity/Vol]70 U/L35 - 144 U/LNOMS HealthcareALT [Catalytic activity/Vol]17 U/L 9 - 46 U/LNOMS HealthcareAST [Catalytic activity/Vol]16 U/L10 - 35 U/LNOMS HealthcareBilirubin [Mass/Vol]0.6 mg/dL0.2 - 1.2 mg/dLNOMS HealthcareCalcium [Mass/Vol]9 mg/dL8.6 - 10.3 mg/dLNOIN HealthcareChloride [Moles/Vol]103 mmol/L98 - 110 mmol/LNOMS HealthcareCO2 [Moles/Vol]29 mmol/L20 - 32 mmol/LNOMS HealthcareCreatinine [Mass/Vol]1.17 mg/dL0.70 - 1.22 mg/dLNOIN Healthcare GFR/1.73 sq M.predicted among non-blacks MDRD (S/P/Bld) [Vol rate/Area]63 mL/min/{1.73_m2}> OR = 60 mL/min/1.28h5FYHI HealthcareGlobulin (S) [Mass/Vol]2.2 g/dLNOIN HealthcareGlucose [Mass/Vol]149 mg/lCJbwn97 - 99 mg/dLNOIN Healthcare Comment on above: Fasting reference interval For someone without known diabetes, a glucose value >125 mg/dL indicates that they may have diabetes and this should be confirmed with a follow-up test. Potassium [Moles/Vol]3.9 mmol/L3.5 - 5.3 mmol/LNOMS HealthcareProtein [Mass/Vol] 6.2 g/dL6.1 - 8.1 g/dLHE[facility]LEY [facility] HealthcareSodium [Moles/Vol]140 mmol/L135 - 146 mmol/LNOMS HealthcareUrea nitrogen [Mass/Vol]12 mg/dL7 - 25 mg/dLSaint Louis University Health Science Center Urea nitrogen/Creatinine [Mass ratio]SEE NOTE:[facility] HealthcareComment on above: Not Reported: BUN and Creatinine are within reference range. No Panel Informationon 80-98-7217Hefxxkvksfaolj and review of laboratory results AbnormalSaint Louis University Health Science CenterPerforming Organization Information Site ID: QPT Name: DermApproved [facility] Address: [address] [place] [address], [address] [place] [id number] Director: Murray Sprague MDKansas City [facility] HealthcareLaboratory - Cytologyon 42-42-5512Qwmspwhfdmw observation Cyto stain Nom (Cvx)4.2NMosaic [facility] Care [facility] Panel Informationon 49-64-5884OQQHSaint Louis University Health Science CenterLaboratory - Cytologyon 03-18-2024 Microscopic observation Cyto stain Nom (Cvx)3.3NOHawthorn Children's Psychiatric HospitalNo Panel Informationon 34-54-5574NUYU HealthcareLaboratory - Cytologyon 02-29-2024 Microscopic observation Cyto stain Nom (Cvx)1.7[facility] CenterNo Panel Informationon 50-30-4626Lljumsycrdbxhu and review of laboratory resultsAbnormal Count includes the [facility] HospitalLaboratory - Cytologyon 05-80-9411Whkoohswkmb observation Cyto stain Nom (Cvx)1.4[facility] Panel Informationon 40-86-7818FXTV HealthcareOutside Recordson 65-09-2768Yxqsdbw Records [id number]#1.00[facility] Release of Informationon 17-34-1816Pagrnge of Information [id number]#1.00[facility] Outside Recordson 34-38-3557Gmbzkpf Records [id number]#1.00[facility] Glucose Glucometer (BldC) [Mass/Vol]Ordered By: Nadiya Hagan on 12-23-2023 Glucose [Mass/Vol]90 mg/dLSt. Anthony'S HospitalComment on above: Random Glucose Reference Range is dependent on time and content of last meal. Glucose of more than 200 mg/dL in a nonstressed, ambulatory subject supports the diagnosis of Diabetes Mellitus.INR in Platelet poor plasma by Coagulation assay Ordered By: Marino Acuña on 80-53-9919RUC Coag (PPP) [Relative time]2.2 {INR} [facility]'S HospitalComment on above:INR Therapeutic Range A) Pre- and Peroperative OAT started two weeks before surgery. NOT HIP SURGERY: 1.5 - 2.5 HIP SURGERY: 2 - 3B) Primary and secondary prevention of venous THROMBOSIS: 2 - 3C) Active venous thrombosis, pulmonary embolismand prevention of recurrent venous thrombosis: 2 - 3D) Prevention of arterial thromboembolismincluding patients with mechanical heart valves: 3 - 4.5Outside Recordson 12-23-2023 Outside [id number]#1.00GTAvita Health System Bucyrus HospitalProthrombin time (PT)Ordered By: Marino Acuña on 12-23-2023 PT Coag (PPP) [Time]25.3 sHigh9.0-12.9St. [facility]'S HospitalComment on above:A hematocrit value greater than 55% may lead to inaccurate results in coagulation testing. Patientshaving hematocrit values >55% require a special collection tube for coagulation studies. Please contact the laboratory at [phone] for redraw instructions.Cholesterol [Mass/volume] in Serum or PlasmaOrdered By: Nadiya Hagan on 48-50-7346Saupwnqjpcr [Mass/Vol]148 mg/dL 140-200St. [facility]'S HospitalComment on above:Chol less than 200 mg/dl low riskChol 201-239 mg/dl borderline riskChol 240 mg/dl and greater high riskCholesterol in LDL Calc [Mass/Vol]Ordered By: Nadiya Hagan on 12-22-2023 Cholesterol in LDL [Mass/Vol]89 mg/dL0-100[facility] Comment on above:LDL ATP III CLASSIFICATIONLDL less than 100 mg/dL OptimalLDL 100-129 mg/dL Near or above olwljgvTIZ127-933 mg/dL Borderline highLDL 160-189 mg/dL HighLDL greater than 189 mg/dL Very highCholesterol in VLDL Calc [Mass/Vol]Ordered By: Nadiya Hagan on 04-49-5761Yicyplivzxs in VLDL [Mass/Vol] 18 mg/dLCrystal Clinic Orthopedic Centererum or plasma high density lipoprotein (HDL) cholesterol measurementOrdered By: Nadiya Hagan on 12-22-2023 Cholesterol in HDL [Mass/Vol]41 mg/hE46-21YvmxcmdnpSt. Anthony'S Hospital Comment on above:HDL CHOL ATP-III CLASSIFICATION Cardiovascular RiskHDL > or equal to 60 mg/dL LOWHDL < 40 mg/dL HIGHSerum or plasma total cholesterol/high density lipoprotein (HDL) cholesterol mass ratOrdered By: Nadiya Hagan on 18-36-6736Glmnzhrrihn.total/Cholesterol in HDL [Mass ratio]3.6 {ratio}<5.0 [facility] HospitalTriglyceride [Mass/volume] in Serum or Plasma Ordered By: Nadiya Hagan on 06-35-2764Uvxopldunrjh [Mass/Vol]91 mg/dL0-149 [facility]S HospitalComment on above:TRIG ATP III CLASSIFICATIONTRIG less than 150 mg/dL NormalTRIG 150-199 mg/dL Borderline highTRIG 200-500 mg/dL High TRIG greater than 500 mg/dL Very highStandard traceable to the Center for Disease Conrtrol and Prevention (CDC) test method. Erythrocyte sedimentation rate by Photometric methodOrdered By: Nadiya Hagan on 49-03-5914NGT Photometric method (Bld) [Velocity]22 mm/hrHigh0-19St. [facility]S HospitalOutside Recordson 79-44-7705Ngerppb Records [id number]#1.00OTGTKettering Health Main Campus Outside [id number]#1.00OTGTAvita Health System Bucyrus HospitalOutside Records [id number]#1.00[facility] Reagin Ab [Presence] in Serum by RPROrdered By: Nadiya Hagan on 12-21-2023 Reagin Ab RPR Ql (S)Non-ReactiveNon ReactiveSt. Anthony'S Hospital Comment on above:Performed at: - [facility] [id number] Director: Young Parisi PhD, Phone: [phone] aminotransferase [Enzymatic activity/volume] in Serum or PlasmaOrdered By: Marino Acuña on 15-21-3756TZA [Catalytic activity/Vol]13 U/L7-52St. [facility]S HospitalAlbumin [Mass/volume] in Serum or Plasma by Bromocresol green (BCG) dye binding methoOrdered By: Marino Acuña on 99-26-0830Ycwgjgt BCG dye [Mass/Vol]3.8 g/dL3.5-5.7FMercy Health St. Joseph Warren HospitalAlkaline phosphatase [Enzymatic activity/volume] in Serum or PlasmaOrdered By: Marino Acuña on 54-53-0878WCU [Catalytic activity/Vol]63 U/L13-505HapcpyfxlSt. Anthony'S HospitalAspartate aminotransferase [Enzymatic activity/volume] in Serum or PlasmaOrdered By: Marino Acuña on 69-03-4285OWK [Catalytic activity/Vol]19 U/O91-53PvdphjnruSt. Anthony'S HospitalBasophils Auto (Bld) [#/Vol]Ordered By: Marino Acuña on 89-70-3674Mahcypcbz (Bld) [#/Vol]0.0 10*3/uL0.0-0.2FMercy Health St. Joseph Warren HospitalBasophils/100 WBC Auto (Bld)Ordered By: Marino Acuña on 76-95-4764Mtuzgbhzr/100 WBC (Bld)1.1 %.[facility] Bilirubin.total [Mass/volume] in Serum or PlasmaOrdered By: Marino Acuña on 23-55-1276Ssmsisjhz [Mass/Vol]0.7 mg/dL0.3-1.0[facility] Calcium [Mass/volume] in Serum or PlasmaOrdered By: Obpadillada Jimmyomar on 90-74-7066Lwofvwc [Mass/Vol]8.2 mg/dLLow8.6-10.3FMercy Health St. Joseph Warren HospitalCarbon dioxide, total [Moles/volume] in Serum or PlasmaOrdered By: Obpadillada Daromar on 16-45-6641FK7 [Moles/Vol]25.8 mmol/L21.0-31.0St[facility] HospitalChloride [Moles/volume] in Serum or PlasmaOrdered By: Obpadillada Daromar on 75-25-1190Zdhokszy [Moles/Vol]107 mmol/H09-295CsaxxlhkxSt. Anthony'S HospitalCreatinine [Mass/volume] in Serum or PlasmaOrdered By: Obpadillada Jimmyomar on 60-42-6858Cxnzyavigf [Mass/Vol]1.14 mg/dL0.70-1.30St. [facility]S HospitalEosinophils Auto (Bld) [#/Vol]Ordered By: Obkamila Jimmyomar on 36-66-4066Oxgwwciahpp (Bld) [#/Vol]0.1 10*3/uL0.0-0.45St. [facility]S HospitalEosinophils/100 WBC Auto (Bld)Ordered By: Obpadillacolumbus regional healthcare system Jimmyomar on 12-18-2023 Eosinophils/100 WBC (Bld)2.8 %.[facility]S HospitalErythrocyte distribution width Auto (RBC) [Ratio]Ordered By: Broderick Jimmyomar on 12-18-2023 Erythrocyte distribution width (RBC) [Ratio]16.8 %High12.0-14.8St[facility]S HospitalFolate [Mass/volume] in Serum or PlasmaOrdered By: Obpadillada Jimmyoma on 31-79-2118Whikyt [Mass/Vol]20.6 ng/mL>5.9St. [facility]'S HospitalComment on above:Folate reference range: >5.9 ng/mlThe WHO technical consultation on folate and vitamin y60jvfomlbkjfhi has determined that folate concentrations lessthan 4 ng/ml are considered deficient.Globulin Calc (S) [Mass/Vol]Ordered By: Obaybernice Acuña on 91-92-2022Svnrlkki (S) [Mass/Vol] 2.5 g/dLSt. Anthony'S HospitalGlucose [Mass/volume] in Serum or PlasmaOrdered By: Marino Marquezomar on 32-00-5267Itccjel [Mass/Vol]91 mg/kU30-447 [facility] HospitalComment on above:ADA recommended reference rangeRandom Glucose Reference Range is dependent on time and content of last meal. Glucose of more than 200 mg/dL in a nonstressed, ambulatory subject supports the diagnosisof Diabetes Mellitus.Hematocrit Auto (Bld) [Volume fraction]Ordered By: Marino Acuña on 30-51-1979Qflqyvzqoh (Bld) [Volume fraction]37.9 %Low38.8-50.0[facility]S HospitalHemoglobin [Mass/volume] in BloodOrdered By: Marino Acuña on 05-72-1193Dbtalunbot (Bld) [Mass/Vol]12.3 g/dLLow13.0-17.0St[facility]S HospitalLeukocytes [#/volume] corrected for nucleated erythrocytes in Blood by Automated coun Ordered By: Marino Acuña on 67-67-1764EIM corrected for nucl RBC Auto (Bld) [#/Vol]4.3 10*3/uL4.1-10.5FMercy Health St. Joseph Warren HospitalLymphocytes Auto (Bld) [#/Vol]Ordered By: Marino Marquezomar on 61-74-7503Lgllfmdcmil (Bld) [#/Vol] 0.9 10*3/uLLow1.00-4.8St. [facility]S HospitalLymphocytes/100 WBC Auto (Bld)Ordered By: Marino Marquezomar on 41-81-3248Xhugvxcqrbx/100 WBC (Bld)22.0 %. [facility] Auto (RBC) [Entitic mass]Ordered By: Marino Barnesr on 78-17-7192UOQ (RBC) [Entitic mass]25.4 pgLow27.5-35.2 [facility] Auto (RBC) [Mass/Vol]Ordered By: Marino Acuña on 04-73-8730OQGV (RBC) [Mass/Vol]32.5 g/dL32.5-35.6FMercy Health St. Joseph Warren HospitalMCV Auto (RBC) [Entitic vol]Ordered By: Marino Marquezomar on 21-73-1797UJM (RBC) [Entitic vol]78.2 fLLow83.5-101St. [facility]S HospitalMonocytes Auto (Bld) [#/Vol]Ordered By: Obkaitlin Marquezomar on 12-18-2023 Monocytes (Bld) [#/Vol]0.6 10*3/uL0.0-0.8[facility] Monocytes/100 WBC Auto (Bld)Ordered By: Marino Marquezomar on 12-18-2023 Monocytes/100 WBC (Bld)14.3 %.[facility]S HospitalNeutrophils Auto (Bld) [#/Vol]Ordered By: Marino Marquezomar on 07-09-0395Kndwfohdjrk (Bld) [#/Vol] 2.6 10*3/uL1.8-7.7FMercy Health St. Joseph Warren HospitalNeutrophils/100 WBC Auto (Bld)Ordered By: Marino Marquezomar on 99-62-0189Wkjbgyyeqmp/100 WBC (Bld)59.8 %. [facility]S HospitalNo Panel InformationOrdered By: Marino Acuña on 20-62-1577Tdhvcwujq GFR (CKD-EPI)> 60.0 mL/MinSt. Anthony'S HospitalPharmacy Creatinine Clearance (Chem63.72[facility] Nucleated erythrocytes [Presence] in Blood by Automated countOrdered By: Marino Marquezomar on 42-22-9965Iasxicdrt RBC Auto Ql (Bld)0.2 /100{WBC}0-0.5FMercy Health St. Joseph Warren HospitalPlatelet mean volume Auto (Bld) [Entitic vol]Ordered By: Marino Marquezomar on 01-68-5584Vovpfdws mean volume (Bld) [Entitic vol]7.8 fL 6.6-10.1FMercy Health St. Joseph Warren HospitalPlatelets Auto (Bld) [#/Vol]Ordered By: Marino Daromar on 77-62-8868Ftfwwggtl (Bld) [#/Vol]141 10*3/bQCoq158-375 [facility] HospitalPotassium [Moles/volume] in Serum or Plasma Ordered By: Obpadilladah Daromar on 37-80-6265Srcedyghj [Moles/Vol]4.0 mmol/L3.5-5.1 [facility] HospitalProtein [Mass/volume] in Serum or PlasmaOrdered By: Obaydah Daromar on 99-08-7904Jbndnbn [Mass/Vol]6.3 g/dLLow6.4-8.9St. [facility]S HospitalRBC Auto (d) [#/Vol]Ordered By: Obaydah Daromar on 13-81-3646MDJ (d) [#/Vol]4.85 10*6/uL3.90-5.60[facility]opedic Centererum or plasma albumin/globulin mass ratioOrdered By: Obpadilladah Daromar on 64-35-9396Kbbcksj/Globulin [Mass ratio]1.5 {ratio}[facility] Centererum or plasma anion gap determinationOrdered By: Obpadilladacharbel Daromar on 67-14-1525Njelr gap [Moles/Vol]10.2 mmol/L6.0-15.0[facility] Orthopedic Centerodium [Moles/volume] in Serum or PlasmaOrdered By: Obpadilladacharbel Daromar on 86-98-9016Fbnzxn [Moles/Vol]139 mmol/D531-503MkewueiteSt. Anthony'S Hospital Thyrotropin [Units/volume] in Serum or PlasmaOrdered By: Felipe Lopez on 39-94-7045FDA Qn0.92 m[IU]/L0.45-5.33St[facility]S HospitalUrea nitrogen [Mass/volume] in Serum or PlasmaOrdered By: Obpadilladah Daromar on 01-06-3988Djrd nitrogen [Mass/Vol]13 mg/dL7-25[facility] Vitamin B12 ser/plasOrdered By: Obpadilladacharbel Daromar on 84-60-2496Wsnunrrds (Vitamin B12) [Mass/Vol]174 pg/gEUkz739-086EajsnhawqSt. Anthony'S HospitalWBC Auto (Bld) [#/Vol]Ordered By: Marino Acuña on 97-43-3433KLB (Bld) [#/Vol]4.3 10*3/uL4.1-10.5FMercy Health St. Joseph Warren HospitalActivated partial thromboplastin time (aPTT) in platelet poor plasma by coagulation aOrdered By: Malik Perez on 66-24-3675kPLP Coag (PPP) [Time]36.0 s25.1-36.5FMercy Health St. Joseph Warren HospitalComment on above:A hematocrit value greater than 55% may lead to inaccurate results in coagulation testing. Patientshaving hematocrit values >55% require a special collection tube for coagulation studies. Please contact the laboratory at [phone] for redraw instructions.Alanine aminotransferase [Enzymatic activity/volume] in Serum or PlasmaOrdered By: Malik Perez on 18-55-8140GDU [Catalytic activity/Vol]15 U/L7-52[facility] HospitalAlbumin [Mass/volume] in Serum or Plasma by Bromocresol green (BCG) dye binding methoOrdered By: Malik Perez on 30-54-8219Utqizqn BCG dye [Mass/Vol]3.9 g/dL3.5-5.7FMercy Health St. Joseph Warren HospitalAlkaline phosphatase [Enzymatic activity/volume] in Serum or PlasmaOrdered By: Malik Perez on 40-40-4247ESY [Catalytic activity/Vol]59 U/I54-013JcpzgtcbfSt. Anthony'S HospitalAspartate aminotransferase [Enzymatic activity/volume] in Serum or Plasma Ordered By: Malik Perez on 49-10-3975SOE [Catalytic activity/Vol]22 U/L 13-39St[facility] HospitalBasophils Auto (Bld) [#/Vol]Ordered By: Malik Perez on 71-62-7404Sxcifsnol (Bld) [#/Vol]0.0 10*3/uL0.0-0.2FMercy Health St. Joseph Warren HospitalBasophils/100 WBC Auto (Bld)Ordered By: Malik Perez on 28-71-0300Ojbozpbgs/100 WBC (Bld)0.9 %.[facility] Bilirubin Test strip Ql (U)Ordered By: Malik Perez on 06-11-2327Pjabrvxjh Ql (U)NegativeNegativeSt. Anthony'S HospitalBilirubin.total [Mass/volume] in Serum or PlasmaOrdered By: Malik Perez on 12-17-2023 Bilirubin [Mass/Vol]0.7 mg/dL0.3-1.0[facility] HospitalBlood lead detectionOrdered By: Malik Perez on 78-23-3640Ytim Ql (Bld)1.1 ug/dL0.0-3.4 [facility] HospitalComment on above:Testing performed by Inductively coupled plasma/MassSpectrometry.Analysis by inductively coupled alma sma/massspectrometry (ICP/MS)This test was developed and its performance characteristicsdetermined by [employer]. It has not been cleared orapproved by the Food and Drug Administration. Environmental Exposure: WHO Recommendation <5.0 Occupational Exposure: OSHA Lead Std 40.0 VIET 30.0 Detection Limit = 1.0Performed at: [employer] [address] [id number] Director: Young Parisi PhD, Phone: [phone] [Mass/volume] in Serum or PlasmaOrdered By: Malik Perez on 30-18-1579Slsxumq [Mass/Vol]8.8 mg/dL 8.6-10.3FMercy Health St. Joseph Warren HospitalCarbon dioxide, total [Moles/volume] in Serum or PlasmaOrdered By: Malik Perez on 28-68-5241RY2 [Moles/Vol]26.2 mmol/L21.0-31.0[facility] HospitalChloride [Moles/volume] in Serum or PlasmaOrdered By: Malik Perez on 15-48-5704Rdzkcdio [Moles/Vol]108 mmol/KDpjk52-445ZckjetcxtSt. Anthony'S HospitalColor Auto (U)Ordered By: Malik Perez on 55-80-1715Snket (U)YellowYellowSt. Anthony'S HospitalCreatinine [Mass/volume] in Serum or PlasmaOrdered By: Malik Perez on 35-36-5965Wcdcqaromk [Mass/Vol]1.13 mg/dL0.70-1.30St[facility] HospitalEosinophils Auto (Bld) [#/Vol]Ordered By: Malik Perez on 12-17-2023 Eosinophils (Bld) [#/Vol]0.1 10*3/uL0.0-0.45[facility] Eosinophils/100 WBC Auto (Bld)Ordered By: Malik Perez on 12-17-2023 Eosinophils/100 WBC (Bld)2.0 %.[facility]S HospitalErythrocyte distribution width Auto (RBC) [Ratio]Ordered By: Malik Perez on 12-17-2023 Erythrocyte distribution width (RBC) [Ratio]16.7 %High12.0-14.8St. [facility]S HospitalGlobulin Calc (S) [Mass/Vol]Ordered By: Malik Perez on 37-67-3197Uroxijzu (S) [Mass/Vol]2.4 g/dLSt. Anthony'S Hospital Glucose [Mass/volume] in Serum or PlasmaOrdered By: Malik Perez on 98-23-6345Urfndpe [Mass/Vol]99 mg/pH83-006NtugeeoljSt. Anthony'S Hospital Comment on above:ADA recommended reference rangeRandom Glucose Reference Range is dependent on time and content of last meal. Glucose of more than 200 mg/dL in a nonstressed, ambulatory subject supports the diagnosisof Diabetes Mellitus. Glucose [Mass/volume] in Urine by Test stripOrdered By: Malik Perez on 94-31-7451Gkxzytk Test strip (U) [Mass/Vol]Normal mg/dLNormalSt. Anthony'S HospitalHematocrit Auto (Bld) [Volume fraction]Ordered By: Malik Perez on 30-62-9360Inojvbugsp (Bld) [Volume fraction]37.3 %Low38.8-50.0 [facility] HospitalHemoglobin Test strip Ql (U)Ordered By: Malik Perez on 17-92-4837Aimgjahmbt Ql (U)NegativeNegativeSt. Anthony'S HospitalHemoglobin [Mass/volume] in BloodOrdered By: Malik Perez on 66-83-4675Kwlncdngzv (Bld) [Mass/Vol]12.0 g/dLLow13.0-17.0St. [facility]'S HospitalINR in Platelet poor plasma by Coagulation assayOrdered By: Malik Perez on 40-42-5088TRH Coag (PPP) [Relative time]2.5 {INR}[facility]S HospitalComment on above:INR Therapeutic Range A) Pre- and Peroperative OAT started two weeks before surgery. NOT HIP SURGERY: 1.5 - 2.5 HIP SURGERY: 2 - 3B) Primary and secondary prevention of venous THROMBOSIS: 2 - 3C) Active venous thrombosis, pulmonary embolismand prevention of recurrent venous thrombosis: 2 - 3D) Prevention of arterial thromboembolismincluding patients with mechanical heart valves: 3 - 4.5Ketones Test strip Ql (U)Ordered By: Malik Perez on 45-18-1762Nbbjfcu Ql (U)NegativeNegVan Wert County HospitalLeukocyte esterase [Presence] in Urine by Test strip Ordered By: Malik Perez on 21-44-7232Dcnonbxwq esterase Test strip Ql (U) NegativeNegVan Wert County HospitalLeukocytes [#/volume] corrected for nucleated erythrocytes in Blood by Automated counOrdered By: Malik Perez on 35-41-7615BSO corrected for nucl RBC Auto (Bld) [#/Vol]4.3 10*3/uL 4.1-10.5FMercy Health St. Joseph Warren HospitalLymphocytes Auto (Bld) [#/Vol]Ordered By: Malik Perez on 83-72-0325Jzpedgqfkbx (Bld) [#/Vol]1.0 10*3/uL1.00-4.8 [facility] HospitalLymphocytes/100 WBC Auto (Bld)Ordered By: Malik Perez on 55-80-7751Rwithoshglg/100 WBC (Bld)23.6 %.[facility] Auto (RBC) [Entitic mass]Ordered By: Malik Perez on 34-75-2888RDH (RBC) [Entitic mass]25.6 pgLow27.5-35.2FWadsworth-Rittman Hospital Auto (RBC) [Mass/Vol]Ordered By: Malik Perez on 36-73-0797EIBB (RBC) [Mass/Vol]32.1 g/dLLow32.5-35.6FMercy Health St. Joseph Warren HospitalMCV Auto (RBC) [Entitic vol]Ordered By: Malik Perez on 68-97-3878CJM (RBC) [Entitic vol]79.7 fLLow83.5-101St[facility]S HospitalMonocyte distribution width [Entitic volume] in Blood by AutomatedOrdered By: Malik Perez on 75-50-2475Lliepfjn distribution width Auto (Bld) [Entitic vol]15.20 %0.00-20.00 [facility] HospitalMonocytes Auto (Bld) [#/Vol]Ordered By: Malik Perez on 18-20-8116Mpdingkwt (Bld) [#/Vol]0.6 10*3/uL0.0-0.8St[facility] HospitalMonocytes/100 WBC Auto (Bld)Ordered By: Malik Perez on 63-82-4143Zyjxxmxst/100 WBC (Bld)15.0 %.[facility] Neutrophils Auto (Bld) [#/Vol]Ordered By: Malik Perez on 12-17-2023 Neutrophils (Bld) [#/Vol]2.5 10*3/uL1.8-7.7FMercy Health St. [facility] Hospital Neutrophils/100 WBC Auto (Bld)Ordered By: Malik Perez on 12-17-2023 Neutrophils/100 WBC (Bld)58.5 %.[facility]S HospitalNitrite Test strip Ql (U)Ordered By: Malik Perez on 98-70-6439Opcpgty Ql (U)Negative NegativeSt. Anthony'S HospitalNo Panel InformationOrdered By: Malik Perez on 47-79-4535Sekitldji GFR (CKD-EPI)> 60.0 mL/MinSt. Anthony'S HospitalPharmacy Creatinine Clearance (Chem64.54St[facility]S HospitalNucleated erythrocytes [Presence] in Blood by Automated countOrdered By: Malik Perez on 49-70-2163Hslxmeifq RBC Auto Ql (Bld)0.3 /100{WBC}0-0.5 [facility] HospitalOutside Recordson 94-75-7461Mwhgmyp Records [id number]#1.00[facility] Platelet mean volume Auto (Bld) [Entitic vol]Ordered By: Malik Perez on 89-24-8471Domyurnb mean volume (Bld) [Entitic vol]8.0 fL6.6-10.1FMercy Health St. Joseph Warren HospitalPlatelets Auto (Bld) [#/Vol]Ordered By: Malik Perez on 52-42-2482Rifnbyhjg (Bld) [#/Vol]143 10*3/cPBhy572-314WqsculujtSt. Anthony'S HospitalPotassium [Moles/volume] in Serum or PlasmaOrdered By: Malik Perez on 65-71-2996Hvuifesxh [Moles/Vol]3.9 mmol/L3.5-5.1FMercy Health St. Joseph Warren HospitalProtein Test strip (U) [Mass/Vol]Ordered By: Malik Perez on 44-76-1613Gmmvsmy (U) [Mass/Vol]NegativeNegativeSt. Anthony'S HospitalProtein [Mass/volume] in Serum or PlasmaOrdered By: Malik Perez on 20-11-8896Cmqhaqg [Mass/Vol]6.3 g/dLLow6.4-8.9[facility] Prothrombin time (PT)Ordered By: Malik Perez on 37-24-5994FL Coag (PPP) [Time]27.7 sHigh9.0-12.9St[facility]S HospitalComment on above:A hematocrit value greater than 55% may lead to inaccurate results in coagulation testing. Patientshaving hematocrit values >55% require a special collection tube for coagulation studies. Please contact the laboratory at [phone] for redraw instructions.RBC Auto (Bld) [#/Vol]Ordered By: Malik Perez on 52-66-7692NJM (Bld) [#/Vol]4.68 10*6/uL3.90-5.60[facility] Centererum or plasma albumin/globulin mass ratioOrdered By: Malik Perez on 98-47-8463Rmccegv/Globulin [Mass ratio]1.6 {ratio}[facility] Centererum or plasma anion gap determinationOrdered By: Malik Perez on 04-34-4472Szrqd gap [Moles/Vol]8.7 mmol/L6.0-15.0[facility]opedic Centerodium [Moles/volume] in Serum or PlasmaOrdered By: Malik Perez on 07-47-6998Utnyqa [Moles/Vol]139 mmol/P883-813BfqedfgciSt. Anthony'S Hospital Specific gravity Test strip (U) [Rel density]Ordered By: Malik Perez on 34-46-4351Sbyczyjm gravity (U) [Rel density]1.0231.001-1.030St. [facility]S HospitalUrea nitrogen [Mass/volume] in Serum or PlasmaOrdered By: Malik Perez on 23-43-6652Kpzh nitrogen [Mass/Vol]16 mg/dL7-25St. [facility]'S HospitalUrine appearanceOrdered By: Malik Perez on 12-17-2023 Appearance (U)ClearClearFMercy Health St. Joseph Warren HospitalUrobilinogen Test strip (U) [Mass/Vol]Ordered By: Malik Perez on 29-95-7982Eduufqwpzzhj (U) [Mass/Vol]Normal mg/dLNoProMedica Flower HospitalWBC Auto (Bld) [#/Vol]Ordered By: Malik Perez on 30-10-1197QHN (Bld) [#/Vol]4.3 10*3/uL 4.1-10.5FMercy Health St. [facility] Warren HospitalpH Test strip (U)Ordered By: Malik Perez on 29-59-6657pW (U)6.5 [pH]5.0-9.0[facility] HospitalNo Panel Informationon 66-18-6184Bsexlae INR (LAB)2.5FMercy Health St. Joseph Warren HospitalOutside Recordson 53-43-9961Dvdasov Records [id number]#1.00GTKettering Health Main Campus Coding Summaryon 98-55-6369Iydlci SummaryHTMLBase 64 RgtemhwwILk5tZv+PGhlYWQ+YV4BDPMeA65ndZApwZ6xS5MXQIcLMqunMKEPQKiXJxRqsfKpSJ6amUFg ZXJu [file] OiB (more content not included)...[facility] HospitalOutside Recordson 34-69-9502Clvjbrg [id number]#1.00OTGTIFF NormalDoctors Hospital HospitalOutside Records [id number]#1.00OTGTIFFHolzer Medical Center – JacksonRad - Other Radiology Reporton 56-09-9090Vde - Other Radiology Report [id number]#1.00OTGTKettering Health Main CampusNo Panel Informationon 33-94-9265Wvaojiz INR (LAB)2.5FMercy Health St. Joseph Warren HospitalReminder Messageson 01-08-6326Hzmlwaab Messages From: EMIGDIO VILLANUEVA DO To: [facility] Clinical Pool (MAGR_[place]); Sent: 12/01/2023 07:36:10 EDT [...] % (14 - 48) 11/30/2023 15:49 Auto Dickens % ((H)) 13 % (1 - 12) 11/30/2023 15:49 Auto Eos % 1.8 % (0.9 - 4.0) 11/30/2023 15:49 Auto Baso % 1.0 % (0.2 - 2.0) 11/30/2023 15:49 Neut Abs# 3.2 x103/mcL (1.5 - 9.2) 11/30/2023 15:49 Lymph Abs# ((L)) 1.0 x103/mcL (1.3 - 2.9) 11/30/2023 15:49 Dickens Abs# 0.6 x103/mcL (0.0 - 0.8) 11/30/2023 15:49 Eos Abs# 0.1 x103/mcL (0.0 - 0.4) 11/30/2023 15:49 Baso Abs# 0.0 x103/mcL (0.0 - 0.2) attempted to contact patient, unable to leave message as VM is [facility] HospitalOutside Recordson 60-67-5962Qxielhl Records [id number]#1.00[facility] Patient Handouton 26-56-2066Dytzwxq Handout [id number]#1.00[facility] Patient Provided Health Dataon 56-10-2851Roalayo Provided Health Data [id number]#1.00OTGTIFFHolzer Medical Center – Jackson .Auto Diff 1on 05-10-8962Lqzf Dickens %13 %High1-12[facility] HospitalComment on above:Performed By: #### [id number], 82141270, 0649397, 5011916215, 3538797 ####[facility] (DEFAULT)[address] [place] [address] 98999Lxjy Abs# 0.0 l78Rqfcye7.0-0.2Mselect [facility] hospital [facility] HospitalComment on above:Performed By: #### [id number], 41671482, 1310658, 4726045370, 7141214 ####[facility] (DEFAULT)[address] [place] [address] 61742Xsyixogqe/100 WBC (Bld)1.0 % Normal0.2-2.0[facility] HospitalComment on above:Performed By: #### [id number], 50760967, 0119934, 3079311920, 5317728 ####[facility] (DEFAULT)[address] [place] [address] 48095Bfv Abs#0.1 o51Fcplxy3.0-0.4[facility] Hospital Comment on above:Performed By: #### [id number], 94782754, 6223766, 9186045996, 5996354 ####[facility] (DEFAULT)[address] [place] [address] 76128 Eosinophils/100 WBC (Bld)1.8 %Normal0.9-4.0[facility] HospitalComment on above: Performed By: #### 30429039, 40627947, 6223402, 5901087216, 5215069 ####[facility] (DEFAULT)[address] [place] [address] 43450Xqcle Abs#1.0 x10Low 1.3-2.9[facility] HospitalComment on above:Performed By: #### [id number], 50650494, 6394467, 6551956130, 6108876 ####[facility] (DEFAULT)[address] [place] [address] 46366Owgdfxxkorn/100 WBC (Bld)20 %Suvmpv43-43Oqoaldvg HospitalComment on above:Performed By: #### [id number], 84886839, 2804229, 4935408688, 3210508 ####[facility] (DEFAULT)[address] [place] [address] 72118Lzxf Abs#0.6 u41Rguchs5.0-0.8Magrchildren's hospital for rehabilitation HospitalComment on above: Performed By: #### [id number], 47276227, 8030535, 6649553472, 4855704 ####[facility] (DEFAULT)[address] [place] [address] 51989Yqbn Abs#3.2 f02Vmtrgb 1.5-9.2Magrchildren's hospital for rehabilitation HospitalComment on above:Performed By: #### [id number], 42285940, 9661304, 0904750987, 0432046 ####[facility] (DEFAULT)[address] [place] [address] 66021Uxzxogvmryz/100 WBC (Bld)64 %Zsntcb67-19Dcpkfixw HospitalComment on above:Performed By: #### [id number], 10020960, 3650788, 7221575063, 2950137 ####[facility] [place] [address] 53487RZF w/ Auto Diffon 18-65-6135Agjdhlnhlnq distribution width (RBC) [Ratio]16.8 %High11.5-15.0[facility] HospitalComment on above:Performed By: #### 95152869, 92008515, 8633409, 2111774754, 7704569 ####[facility] [place] [address] 35426Nnapqwhwvb (Bld) [Volume fraction]38.7 %Dyhmjv81.8-51.9[facility] HospitalComment on above:Performed By: #### [id number], 96121281, 4275230, 8944708670, 4611799 ####[facility] (DEFAULT)[address] [place] [address] 74356Lywfhtftkh (Bld) [Mass/Vol]12.2 g/fUJsgsdj71.8-17.7[facility] HospitalComment on above:Performed By: #### 47023519, 16081967, 5872390, 6364864296, 0503989 ####[facility] (DEFAULT)[address] [place] [address] 56912Iob Diff?AutoInvalid Interpretation CodeDoctors Hospital HospitalComment on above:Performed By: #### [id number], 11006481, 8972146, 0236583273, 1966090 ####[facility] (DEFAULT)[address] [place] [address] 24149YSW (RBC) [Entitic mass]26 pg Wvsshc61-47Zjtquzhi HospitalComment on above:Performed By: #### 13720720, 64364222, 3745855, 5632412770, 6199840 ####[facility] (DEFAULT)[address] [place] [address] 88871PZTY (RBC) [Mass/Vol]31 g/uKXepcws78-12Ddfxnjez HospitalComment on above:Performed By: #### 31229266, 07839415, 5879454, 1735522607, 1170622 ####[facility] (DEFAULT)[address] [place] [address] 03252VKA (RBC) [Entitic vol]81 sKRewfvn95-506Miajqxog Hospital Comment on above:Performed By: #### 70672228, 45205379, 3276703, 0262209497, 2077510 ####[facility] (DEFAULT)[address] [place] [address] 00626 Ztjnkczg607 x78Aiwrpc613-690Rbaksnfa HospitalComment on above:Performed By: #### 82063565, 80836803, 7736380, 3523753337, 1604094 ####[facility] (DEFAULT)[address] [place] [address] 54513Eiyicisl mean volume (Bld) [Entitic vol]7.8 fLNormal6.3-10.2Magruder HospitalComment on above:Performed By: #### [id number], 08424119, 9683110, 5029386105, 6695378 ####[facility] (DEFAULT)[address] [place] [address] 37679LCM0.77 u53Raftho6.70-5.30 [facility] HospitalComment on above:Performed By: #### 01581763, 51229011, 8487033, 1095706392, 9855626 ####[facility] (DEFAULT)[address] [place] [address] 46899GEZ7.0 x94Eyndwb2.5-10.5[facility] HospitalComment on above:Performed By: #### 16207939, 80037559, 2558885, 1488038234, 8156753 ####[facility] (DEFAULT)[address] [place] [address] 89289ZXD Standardon 04-93-8214gGYS Non AA>60Invalid Interpretation [facility] Comment on above:Performed By: #### 58185535, 98131302, 3184072, 0412247031, 8351666 ####[facility] (DEFAULT)[address] [place] [address] 65621 eGFR AA>60Invalid Interpretation [facility] CenterComment on above:Performed By: #### 42640300, 95098271, 3997440, 8495571548, 3728359 ####[facility] (DEFAULT)[address] [place] [address] 48276Jxmhtop [Mass/Vol]3.8 g/dLNormal 3.5-5.0[facility] HospitalComment on above:Performed By: #### 00466385, 66392970, 8505259, 7445678760, 8982119 ####[facility] (DEFAULT)[address] [place] [address] 97075Gxnzkrz/Globulin [Mass ratio]1.2 {ratio}Low1.4-2.6 [facility] HospitalComment on above:Performed By: #### 33389896, 14795863, 1460895, 2289616272, 7499539 ####[facility] (DEFAULT)[address] [place] [address] 17842Lfa Phos61 IU/NNrvbat13-64Ngyercqg HospitalComment on above:Performed By: #### 63613505, 70219226, 3205349, 3715396878, 5905601 ####[facility] (DEFAULT)[address] [place] [address] 94636BDA [Catalytic activity/Vol]16.0 U/LLow17.0-63.0[facility] HospitalComment on above: Performed By: #### 32936828, 26380859, 9380719, 2295168878, 3575808 ####[facility] (DEFAULT)[address] [place] [address] 65616Kuurb gap [Moles/Vol] 10.2 mmol/LNormal5.0-19.0[facility] HospitalComment on above:Performed By: #### 46526875, 27634497, 3825659, 5942788579, 9408920 ####[facility] (DEFAULT)[address] [place] [address] 75880KOQ [Catalytic activity/Vol]21 U/WJkxzlp26-45Eaetacip HospitalComment on above:Performed By: #### 24258524, 32644840, 4781352, 1565310003, 5070533 ####[facility] (DEFAULT)[address] [place] [address] 43576Htqt Total0.6 mg/dLNormal0.3-1.2Magrchildren's hospital for rehabilitation Hospital Comment on above:Performed By: #### 42423790, 28092746, 0293543, 6146969872, 9733117 ####[facility] (DEFAULT)[address] [place] [address] 93498 Calcium [Mass/Vol]8.9 mg/dLNormal8.9-10.3Magrchildren's hospital for rehabilitation HospitalComment on above: Performed By: #### 69145777, 93753116, 5060720, 3027455744, 9946240 ####[facility] (DEFAULT)[address] [place] [address] 76916Hyqytiyk [Moles/Vol] 109 mmol/CXuajuj423-066Daszator HospitalComment on above:Performed By: #### 13777114, 79638758, 9031234, 1773738739, 2141873 ####[facility] (DEFAULT)[address] [place] [address] 93816TL5 [Moles/Vol]26 mmol/LNormal 21-32[facility] HospitalComment on above:Performed By: #### 28585475, 89706940, 6237024, 7113700171, 7997085 ####[facility] (DEFAULT)[address] [place] [address] 97589Iqlbtwbbgs [Mass/Vol]1.05 mg/dLNormal0.90-1.30 [facility] HospitalComment on above:Performed By: #### 99231827, 36810113, 2142773, 4054358615, 6678177 ####[facility] (DEFAULT)[address] [place] [address] 26025Neoqjyyk (S) [Mass/Vol]3.0 g/dLNormal1.5-4.3Mselect [facility] specialty hospital [facility] HospitalComment on above:Performed By: #### 95881235, 93652366, 4304143, 0962765065, 3576891 ####[facility] (DEFAULT)[address] [place] [address] 48028Gmynixl [Mass/Vol]118.0 mg/wVZxnefa61.0-118.0[facility] Hospital Comment on above:Performed By: #### 15812061, 37407083, 8738401, 7453270260, 8425599 ####[facility] (DEFAULT)[address] [place] [address] 22311 Phhhvfpwxg357 mOsm/LInvalid Interpretation CodeDoctors Hospital HospitalComment on above:Performed By: #### 23091724, 44512260, 2427447, 4868076487, 8219241 ####[facility] (DEFAULT)[address] [place] [address] 17070Ukjdhnoyo [Moles/Vol]4.2 mmol/LNormal3.6-5.1Mselect [facility] specialty hospital [facility] HospitalComment on above:Performed By: #### 52850511, 52354886, 3375588, 3550923149, 8472771 ####[facility] (DEFAULT)[address] [place] [address] 95923Illmcil [Mass/Vol]6.8 g/dLNormal 6.5-8.1Mselect [facility] specialty hospital [facility] HospitalComment on above:Performed By: #### 25546883, 46906966, 0928838, 3820492555, 6154221 ####[facility] (DEFAULT)[address] [place] [address] 74704Xjwojd [Moles/Vol]141.0 mmol/QRycveh625.0-144.0 [facility] HospitalComment on above:Performed By: #### 06226656, 19143770, 4241935, 3645631533, 4155402 ####[facility] (DEFAULT)[address] [place] [address] 89981Bhrx nitrogen [Mass/Vol]15 mg/dLNormal8-26[facility] HospitalComment on above:Performed By: #### 56166845, 95305992, 7874538, 9237189564, 6108080 ####[facility] (DEFAULT)[address] [place] [address] 81065Djka nitrogen/Creatinine [Mass ratio]14.2 mg/mgNormal4.6-16.2 [facility] HospitalComment on above:Performed By: #### 71151413, 55683469, 5350351, 0796592008, 4224578 ####[facility] (DEFAULT)[address] [place] [address] 64821E3, Totalon 79-39-9883G7 [Mass/Vol]7.55 ug/dLNormal 6.09-12.23[facility] HospitalComment on above:Performed By: #### 43357431, 51436733, 7665387, 5356564182, 4705495 ####[facility] (DEFAULT)[address] [place] [address] 88512RUFhr 72-74-1761LXZ Qn0.87 m[IU]/LNormal0.45-5.33 Peña HospitalComment on above:Performed By: #### 40009385, 82673504, 0628707, 6524167563, 9293123 ####[facility] (DEFAULT)[address] [place], [place] [address]Fy Panel Informationon 86-78-5171Pxyxmsj INR (LAB) 1.3LowSt. Anthony'S HospitalNo Panel Informationon 94-43-2862Grwnxdh INR (LAB)2.1FMercy Health St. Joseph Warren HospitalNo Panel Informationon 10-05-2023 Bedside INR (LAB)2.4FMercy Health St. Joseph Warren HospitalNo Panel Informationon 04-59-4716Rzwmywy INR (LAB)5.9St. [facility]'S HospitalTRANSTHORACIC ECHO (TTE) COMPLETEon 26-83-9656JJFUXVAYPTAGV ECHO (TTE) COMPLETE[address], [address] [address] TRANSTHORACIC ECHOCARDIOGRAM REPORT Patient Name: EMIGDIO Amanda Physician: [id number] Ziegler MD Study Date: 07/22/2023 Ordering Provider: [id number] ZIEGLER MRN/PID: [id number] Fellow: Nurse: Date of /Age: 4 1940 / 82 years Supervisor [employer]: Aylin Turner RDCS, RVT Gender: M Additional Staff: Height: 182.88 cm Admit Date: Weight: 99.79 kg Admission Status: BSA / BMI: 2.22 m2 / 29.84 kg/m2 Department Location: [facility] Blood Pressure: 138 /84 mmHg Study Type: TRANSTHORACIC ECHO (TTE) COMPLETE Diagnosis/ICD: Cardiac murmur, unspecified-R01.1 Indication: Permanent Atrial Fibrillation, CAD, PTCA, CABG, Obesity, Former Smoker CPT Codes: Echo Complete w Full Doppler-26306 Study Detail: The following Echo studies were [...] peak instantaneous gradient of the aortic valve is8.2 mmHg. The mean gradient of the aortic [...] AoV Mean P.0 mmHg (1.7-11.5mmHg) LVOT Max Poncho: 0.71 m/s (<=1.1m/s) AoV VTI: 30.90 cm [...] 30mmHg) PULMONIC VALVE: Normal Ranges: PV Max Poncho: 0.6 m/s (0.6-0.9m/s) PV Max P.3 mmHg PIEDV: 2.98 m/s PADP: 38.6 mmHg [id number] Fletcher Ziegler MD Electronically signed on 07/26/2023 at 2:45:02 PM Final [facility] for RehabilitationProthrombin Time INR on 79-54-9478DLC Coag (PPP) [Relative time]2.5 {INR}[employer] Other Prothrombin Time INRNoBuzzmove Other Prothrombin Time INRon 65-98-2938KZU Coag (PPP) [Relative time]2.3 {INR}[employer] Other Prothrom[employer] Time INRNoPhoodeez Other Prothrombin Time INRon 45-22-8743ROQ Coag (PPP) [Relative time]1.5 {INR}[employer] Other Prothrom[employer] Time INRNoHeuresis Corporation [place] [employer] Other Prothrombin Time INRon 84-61-7185SJY Coag (PPP) [Relative time]1.8 {INR}[employer] Other Prothrombin Time INRNouniversity health tr[facility] [place] [employer] Other Prothrombin Time INRon 83-50-3327NLD Coag (PPP) [Relative time]2.0 {INR}[employer] Other Prothrombin Time INRTupalouniversity health truman medical center [place] [employer] Other Prothrombin Time INRon 72-12-8452PAX Coag (PPP) [Relative time]1.8 {INR}[employer] Other Prothrombin Time iCADMaytown [place] [employer] Other CBC AUTO DIFFon 47-58-7142KYEK #0.1 103/ulNormal 0.0-0.1[facility] Hospital For RehabilitationComment on above:Performed By: #### CBC #### [facility] [address] [place] [address] [address] Tong OviedoBasophils/100 WBC (Bld)1.1 %Normal0.2-2.0[facility] Comment on above:Performed By: #### CBC #### [facility] [address] [address] [address] Tong Nicolas #0.1 103/ulNormal0.0-0.7The [facility] Oste[facility] ClinicComment on above: Performed By: #### CBC #### [facility] [address] [address] [address] Tong Weberosinophils/100 WBC (Bld)2.6 %Normal0.9-7.0[facility] Comment on above:Performed By: #### CBC #### [facility] [address] [address] [address] Tong Weberrythrocyte distribution width (RBC) [Ratio]19.8 %Critically high 11.0-15.0The [facility] Osteopathic ClinicComment on above:Result Comment: anisocytosis 2+ Performed By: #### CBC #### [facility] [address] [place] [address] Dr. Tong OviedoHematocrit (Bld) [Volume fraction]36.1 %Critically low42.0-54.0 The [facility] ClinicComment on above:Performed By: #### CBC #### [facility] [address] [place] [address] Dr. Tong OviedoHemoglobin (Bld) [Mass/Vol]10.2 g/dLCritically low14.0-18.0The [facility] ClinicComment on above:Performed By: #### CBC #### [facility] [address] [place] [address] Dr. Tong Infante #0.01 10e3/ulNormal0.00-0.03The [facility]opathic ClinicComment on above:Performed By: #### CBC #### [facility] [address] [place] [address] Dr. Tong Infante %0.2 %Normal0.0-0.5The [facility] ClinicComment on above: Performed By: #### CBC #### [facility] [address] [place] [address] Dr. Tong العليH #1.0 103/ulCritically low1.2-3.8The [facility] Comment on above:Performed By: #### CBC #### [facility] [address] [place] [address] Dr. Tong Juarezmphocytes/100 WBC (Bld)21.2 %Zlxvvv35.5-60.0The [facility] Hospitalment on above:Performed By: #### CBC #### [facility] [address] [place] [address] Dr. Tong LópezUAL DIFF REQNONormalThe [facility] ClinicComment on above: Performed By: #### CBC #### [facility] [address] [place] [address] Dr. Tong Jacobson (RBC) [Entitic mass]20.2 pgCritically low25.9-34.0The [facility] ClinicComment on above:Performed By: #### CBC #### [facility] [address] [place] [address] Dr. Tong Jacobson (RBC) [Mass/Vol]28.3 g/dLCritically low29.9-35.2The [facility] HospitalComment on above:Result Comment: hypochromasia 1+Performed By: #### CBC #### [facility] [address] [place] [address] Dr. Tong Jacobson (RBC) [Entitic vol]71.3 fLCritically low80.0-94.0The [facility] ClinicComment on above:Result Comment: microcytosis 2+Performed By: #### CBC #### [facility] [address] [place] [address] Dr. Tong Russell #0.6 103/ulNormal0.3-0.8The [facility] ClinicComment on above:Performed By: #### CBC #### [facility] [address] [place] [address] Dr. Tong Cobbocytes/100 WBC (Bld)11.8 %Normal1.7-12.0[facility] Comment on above:Performed By: #### CBC #### [facility] [address] [place] [address] Dr. Tong Dan #2.9 103/ulNormal1.4-6.5The [facility] ClinicComment on above:Performed By: #### CBC #### [facility] [address] [place] [address] Dr. Tong Alfredoutrophils/100 WBC (Bld)63.1 %Ijinlw65.0-75.0The [facility]opathic ClinicComment on above:Performed By: #### CBC #### [facility] [address] [place] [address] Dr. Tong Castillolet mean volume (Bld) [Entitic vol]9.5 fLNormal9.5-13.5The [facility] ClinicComment on above:Performed By: #### CBC #### [facility] [address] [place] [address] Dr. Tong OviedoPLT157 103/nzFcetxr556-648Owr [facility] ClinicComment on above: Performed By: #### CBC #### [facility] [address] [place] [address] Dr. Tong OviedoRBC5.06 106/ulNormal4.70-6.10The [facility] ClinicComment on above:Performed By: #### CBC #### [facility] [address] [place] [address] Dr. Tong OviedoWBC4.7 103/ulNormal4.0-11.0The [facility] ClinicComment on above: Performed By: #### CBC #### [facility] [address] [place] [address] Dr. Tong OviedoMAGNESIUMon 76-81-8852Bthhawqyg [Mass/Vol]1.8 mg/dLNormal1.8-2.4 The [facility] ClinicComment on above:Performed By: #### TSH, T4, CMP, MG #### [facility] [address] [place] [address] Dr. Tong OviedoPROF 14(COMP METB)on 45-95-7426Bxqttgv [Mass/Vol]3.3 g/dL Critically low3.4-5.0The [facility] on above:Performed By: #### TSH, T4, CMP, MG #### [facility] [address] [place] [address] Dr. Tong OviedoAlbumin/Globulin [Mass ratio]0.9 {ratio}NormalThe [facility] on above:Performed By: #### TSH, T4, CMP, MG #### [facility] [address] [place] [address] Dr. Tong OviedoALP [Catalytic activity/Vol]86 U/JYuqgzr83-472Cns [facility] Hospitalment on above:Performed By: #### TSH, T4, CMP, MG #### [facility] [address] [place] [address] Dr. Tong Fox [Catalytic activity/Vol]25 U/PWgimly12-41Jao [facility] ClinicComment on above:Performed By: #### TSH, T4, CMP, MG #### [facility] [address] [place] [address] Dr. Tong Palenciaon gap [Moles/Vol]10.8 mmol/LNormalChildren'S Hospital For Rehabilitation Comment on above:Performed By: #### TSH, T4, CMP, MG #### [facility] [address] [place] [address] Dr. Tong Bright [Catalytic activity/Vol]24 U/OCahvbq53-25Ndb [facility] ClinicComment on above:Performed By: #### TSH, T4, CMP, MG #### [facility] [address] [place] [address] Dr. Tong OviedoBilirubin [Mass/Vol]0.7 mg/dLNormal0.2-1.0[facility] Comment on above:Performed By: #### TSH, T4, CMP, MG #### [facility] [address] [place] [address] Dr. Tong OviedoCalcium [Mass/Vol]8.8 mg/dLNormal8.5-10.1[facility] Comment on above:Performed By: #### TSH, T4, CMP, MG #### [facility] [address] [place] [address] Dr. Tong OviedoChloride [Moles/Vol]106 mmol/XViycpw76-570XjyChildren'S Hospital For Rehabilitation Comment on above:Performed By: #### TSH, T4, CMP, MG #### [facility] [address] [place] [address] Dr. Tong OviedoCO2 [Moles/Vol]27.2 mmol/NLjisdh94.0-32.0[facility] Comment on above:Performed By: #### TSH, T4, CMP, MG #### [facility] [address] [place] [address] Dr. Yilan ChangCreatinine [Mass/Vol]1.04 mg/dLNormal0.70-1.30The [facility] ClinicComment on above:Performed By: #### TSH, T4, CMP, MG #### [facility] [address] [address] [address] Tong WeberGFR-AF EGYPTIAN>60Normal>=60[facility] ClinicComment on above:Performed By: #### TSH, T4, CMP, MG #### [facility] [address] [place] [address] Dr. Tong WeberGFR-NON AF EGYPTIAN>60Normal>=60[facility] ClinicComment on above:Performed By: #### TSH, T4, CMP, MG #### [facility] [address] [place] [address] Dr. Tong OviedoGlobulin (S) [Mass/Vol]3.7 g/dLNormalThe [facility] ClinicComment on above:Performed By: #### TSH, T4, CMP, MG #### [facility] [address] [place] [address] Dr. Tong OviedoGlucose [Mass/Vol]158 mg/dLCritically [id number] [facility] Hospitalment on above:Performed By: #### TSH, T4, CMP, MG #### [facility] [address] [place] [address] Dr. Tong OviedoPotassium [Moles/Vol]4.0 mmol/LNormal3.5-5.1[facility] Comment on above:Performed By: #### TSH, T4, CMP, MG #### [facility] [address] [place] [address] Dr. Tong OviedoProtein [Mass/Vol]7.0 g/dLNormal6.4-8.2[facility] Comment on above:Performed By: #### TSH, T4, CMP, MG #### [facility] [address] [place] [address] Dr. Tong OviedoSodium [Moles/Vol]140 mmol/[id number]'S Hospital For [facility] Comment on above:Performed By: #### TSH, T4, CMP, MG #### [facility] [facility] [address] [address] [address] Tong OviedoUrea nitrogen [Mass/Vol]10.0 mg/dLNormal7.0-18.0[facility]Com[facility] on above:Performed By: #### TSH, T4, CMP, MG #### [facility] [address] [place] [address] Dr. Tong OviedoUrea nitrogen/Creatinine [Mass ratio]9.6 mg/mgNormalThe [facility] ClinicComment on above:Performed By: #### TSH, T4, CMP, MG #### [facility] [address] [place] [address] Dr. Tong Medrano4on 56-55-3001S2 [Mass/Vol]5.40 ug/dLNormal4.50-12.10The [facility] ClinicComment on above:Performed By: #### TSH, T4, CMP, MG #### [facility] [address] [place] [address] Dr. Tong OviedoTSHotadeo 26-44-1783OXR0.843 uIU/mLNormal0.358-3.740The [facility] ClinicCom[facility] on above:Performed By: #### TSH, T4, CMP, MG #### [facility] [address] [place] [address] Dr. Tong OviedoProthrombin Time INRon 53-93-6937FTO Coag (PPP) [Relative time] 3.0 {INR}[employer] Other Prothrombin Time [facility]RNoun[facility] [place] [employer] Other Prothrombin Time INRon 80-71-8432MDK Coag (PPP) [Relative time]3.1 {INR}[employer] Other Prothrombin Time INRPhoodeez Other Prothrombin Time INRon 14-55-2326ZHM Coag (PPP) [Relative time]3.7 {INR}[employer] Other Prothrombin Time [employer] Other Prothrombin Time INRon 27-62-2630GFZ Coag (PPP) [Relative time]2.8 {INR}[employer] Other Prothrombin Time [employer] Other Prothrombin Time INRon 01-50-7168GKQ Coag (PPP) [Relative time]2.6 {INR}[employer] Other Prothrombin Time [employer] Other Office Visit (Cardiology)on 12-12-6516Ooqqkx-up visit Diagnoses/Problems Assessed CAD (coronary artery disease) [...] 1 TABLET Weekly Lipid Panel; Status:Active; Requested for:77Rpi2206; Start: Atorvastatin Calcium 20 MG Oral Tablet; TAKE 1 TABLET AT BEDTIME Class 1 obesity with body mass index (BMI) of 31.0 to 31.9 in adult Healthy Weight Tips; Status:Complete; Done: 07Apr2022 Some eating tips that can help you lose weight.; Status:Complete; Done: [id number] SocHx: Former smoker Tobacco Use Screening; Status:Complete; Done: 58Kjd9000 Patient Instructions Please bring all medicines, vitamins, [...] with high risk medication Coumadin. I know, though,that despite coronary disease is not on aspirin [...] MG) ORALLY ON Thursday AND THURSDAY. TAKE 2TABLETS (4 MG) ORALLY ALL OTHER DAYS OR DIRECTED. [place] [facility] [place] [facility] Allergies Medication No Known [...] EMIGDIO JEONG; : 1940; Recorded: 07Apr2022 10:35AMRecorded: 72Koq0190 10:21AMRecorded: 99Wtk7242 10:16AM Klacxxke363, LLE, Rskiaww113, RUE, Alccysx251, LUE, Sitting Qkkjwcqyx39, LLE, Mdjdafn66, RUE, Ybxyapd68, LUE, Sitting Heart Rate78, R Radial Height6 ft Vvzixv512 lb BMI Todljxuxva49.19 kg/m2 BSA Calculated2.26 Tobacco Useb) No PHQ-2 #1. Over the last 2 weeks have you felt down, depressed or hopeless? (If yes, answer PHQ-9 below)No PHQ-2 #2. Over the last 2 weeks have you felt imer (more content not included)...NormalUH TouchworksProthrombin Time INRon 45-55-0699EGH Coag (PPP) [Relative time]2.9 {INR}[employer] Other Prothrombin Time [employer] Other Prothrombin Time INRon 10-76-8072PPS Coag (PPP) [Relative time]2.2 {INR}[employer] Other Prothrombin Time [employer] Other Prothrombin Time INRon 65-66-0919TGI Coag (PPP) [Relative time]1.9 {INR}[employer] Other Prothrombin Time [facility] [place] [employer] Other Prothrombin Time INRon 83-28-6165IXN Coag (PPP) [Relative time]2.1 {INR}[employer] Other Prothrombin Time [facility] [place] [employer] Other Prothrombin Time INRon 71-00-6875XBV Coag (PPP) [Relative time]1.8 {INR}[employer] Other Prothrombin Time [facility] [place] [employer] Other Prothrombin Time INRon 96-59-7434UHR Coag (PPP) [Relative time]2.0 {INR}[employer] Other Prothrombin Time [facility] [place] [employer] Other Prothrombin Time INRon 65-71-1377IJY Coag (PPP) [Relative time]1.6 {INR}[employer] Other Prothrombin Time [facility] [place] [employer] Other Prothrombin Time INRon 70-37-9542KMW Coag (PPP) [Relative time]1.7 {INR}[employer] Other Prothrombin Time [facility] [place] [employer] Other Prothrombin Time INRon 71-19-7044TPY Coag (PPP) [Relative time]2.0 {INR}[employer] Other Prothrombin Time [employer] [place] Other Prothrombin Time INRon 84-65-3821THO Coag (PPP) [Relative time]1.8 {INR}[employer] Other Prothrombin Time [employer] [place] [employer] Other Prothrombin Time INRon 59-75-0971NDR Coag (PPP) [Relative time]2.0 {INR}[employer] Other Prothrombin Time [facility] [place] [employer] Other Prothrombin Time INRon 06-85-5769LLU Coag (PPP) [Relative time]2.1 {INR}[employer] Other Prothrombin Time [employer] [place] [employer] Other Prothrombin Time INRon 46-63-1176DPH Coag (PPP) [Relative time]1.5 {INR}[employer] Other Prothrombin Time [facility] [place] [employer] Other Prothrombin Time INRon 61-83-4341JTE Coag (PPP) [Relative time]2.3 {INR}[employer] Other Prothrombin Time [facility] [place] [employer] Other Falls Risk Screeningon 50-72-6211Apkv risk assessment a) No falls within the last yearMP-[facility] [employer] 250 DO Work Phone: Tobacco use status CPHSb) NoMP-[facility] [employer] 250 DO Work Phone: Prothrombin Time INRon 00-31-2022RWG Coag (PPP) [Relative time]2.3 {INR}[employer] Other Prothrombin Time [employer] [place] [employer] Other LIPID PANEL (CORONARY RISK 2)on 75-98-8287Objjjmxdser [Mass/Vol]202 mg/dLHigh0 - 199C[facility] HospitalComment on above:Result Comment: . AGE DESIRABLE BORDERLINE HIGH HIGH [...] should be performed immediately prior to Metamizole dosing.Performed By: #### LIPID #### [address] [address]Vkzyapmmxka in HDL [Mass/Vol]46.0 mg/dLNormalUCedars Medical CenterComment on above:Result Comment: . AGE VERY LOW LOW NORMAL HIGH 0-19 Y < 35 < 40 40-45 ---- 20-24 Y ---- < 40 >45 ---- >24 Y ---- < 40 40-60 >60 .Performed By: #### LIPID #### [address] [address]Lpvtxbxsnur in LDL [Mass/Vol]131 mg/dLHigh0 - 99C[facility] HospitalComment on above:Result Comment: . NEAR BORD AGE DESIRABLE OPTIMAL HIGH HIGH VERY HIGH 0-19 Y 0 - 109 --- 110-129 >/= 130 ---- 20-24 Y 0 - 119 --- 120-159 >/= 160 ---- >24 Y 0 - 99 100-129 130-159 160-189 >/=190 .Performed By: #### LIPID #### [address] [address]Xxuxyqyccfc in VLDL [Mass/Vol]25 mg/dLNormal0 - 40C[facility] HospitalComment on above:Performed By: #### LIPID #### [address] [address]Yflofxdsaqr.total/Cholesterol in HDL [Mass ratio]4.4 {ratio} NormalConejos County HospitalComment on above:Result Comment: REF VALUES DESIRABLE < 3.4 HIGH RISK > 5.0Performed By: #### LIPID #### [address] [address]Ehiqqouhomap [Mass/Vol]125 mg/dLNormal0 - 149[facility] HospitalComment on above:Result Comment: . AGE DESIRABLE BORDERLINE HIGH HIGH [...] should be performed immediately prior to Metamizole dosing.Performed By: #### LIPID #### [address] [address]HYMVB PANEL (CORONARY RISK 2)on 49-55-8417Yejhjhnwtru [Mass/Vol] 181 mg/dLNormal0 - 199C[facility] HospitalComment on above:Result Comment: . AGE DESIRABLE BORDERLINE HIGH HIGH [...] should be performed immediately prior to Metamizole dosing.Performed By: #### LIPID #### [address] [address]Sxljzogkrcc in HDL [Mass/Vol]43.0 mg/dLNoMcKee Medical CenterComment on above:Result Comment: . AGE VERY LOW LOW NORMAL HIGH 0-19 Y < 35 < 40 40-45 ---- 20-24 Y ---- < 40 >45 ---- >24 Y ---- < 40 40-60 >60 .Performed By: #### LIPID #### [address] [address]Nifdcfffksd in LDL [Mass/Vol]120 mg/dLHigh0 - 99C[facility] HospitalComment on above:Result Comment: . NEAR BORD AGE DESIRABLE OPTIMAL HIGH HIGH VERY HIGH 0-19 Y 0 - 109 --- 110-129 >/= 130 ---- 20-24 Y 0 - 119 --- 120-159 >/= 160 ---- >24 Y 0 - 99 100-129 130-159 160-189 >/=190 .Performed By: #### LIPID #### [address] [address]Nzgisjwbiil in VLDL [Mass/Vol]18 mg/dLNormal0 - 40C[facility] HospitalComment on above:Performed By: #### LIPID #### [address] [address]Roaxadduzbt.total/Cholesterol in HDL [Mass ratio]4.2 {ratio} NormalConejos County HospitalComment on above:Result Comment: REF VALUES DESIRABLE < 3.4 HIGH RISK > 5.0Performed By: #### LIPID #### [address] [address]Lkiprvclnpoa [Mass/Vol]89 mg/dLNormal0 - 149C[facility] HospitalComment on above:Result Comment: . AGE DESIRABLE BORDERLINE HIGH HIGH [...] should be performed immediately prior to Metamizole dosing.Performed By: #### LIPID #### [facility] [address] [facility], [place] [address]Ejddrueugca Timeon 05-71-2612SRX Coag RelTime (PPP)2.64 {INR} High0.90-1.10EMH HealthcareComment on above:Performed By: #### [id number] ####[facility] [address] [place] [address] Prothrombin time (PT) Coag time (PPP)29.6 sHigh9.8-12.7EMH HealthcareComment on above:Performed By: #### [id number] ####[facility] [address] [facility] [place], [place] [address]Cctdserngep Timeon 58-80-1612PZA Coag RelTime (PPP)1.94 {INR}High0.90-1.10EMH HealthcareComment on above:Result Comment: PLEASE NOTE NEW REFERENCE RANGE EFFECTIVE 2017Performed By: #### [id number] ####[facility] [address] [place] [address] Prothrombin time (PT) Coag time (PPP)21.7 sHigh9.8-12.7EMH HealthcareComment on above:Result Comment: PLEASE NOTE NEW REFERENCE RANGE EFFECTIVE 2017 Performed By: #### [id number] ####[facility] [address] [facility] [place], [place] [address]Mxwwesesrtb Timeon 95-49-5990HSH Coag RelTime (PPP) 1.39 {INR}High0.90-1.10EMH HealthcareComment on above:Result Comment: PLEASE NOTE NEW REFERENCE RANGE EFFECTIVE 2017Performed By: #### [id number] ####[facility] Yam[address] [place] [address] Prothrombin time (PT) Coag time (PPP)15.5 sHigh9.8-12.7EMH HealthcareComment on above:Result Comment: PLEASE NOTE NEW REFERENCE RANGE EFFECTIVE 2017 Performed By: #### [id number] ####[facility] [address] [place], [place] [address]Ljbhjpkvpcp Timeon 80-82-3826QFA Coag RelTime (PPP) 1.52 {INR}High0.90-1.10EMH HealthcareComment on above:Result Comment: PLEASE NOTE NEW REFERENCE RANGE EFFECTIVE 2017Performed By: #### [id number] ####[facility] [address] [place] [address] Prothrombin time (PT) Coag time (PPP)16.9 sHigh9.8-12.7EMH HealthcareComment on above:Result Comment: PLEASE NOTE NEW REFERENCE RANGE EFFECTIVE 2017 Performed By: #### [id number] ####[facility] [address] [place] [address] Vital Signs Date TimeVital SignValuePerforming ZzdgejbbzJswtqpxy89-12-7589 13:07-0500Body .9 cmVanen Hemmer PA Work Phone: [phone] [place], [place] [address]Ctumhsdnaq97-85-3664 13:07-0500Body mass index (BMI) [Ratio]32.17 kg/f3Ckbyc Hemmer PA Work Phone: [phone] [place], [place] [address]Vsyiuuhcae76-47-8281 13:07-0500Body omignr330.59 kgKaren Hemmer PA Work Phone: [phone] [place], [place] [address]Jnlivznxgd07-44-9416 13:07-0500Diastolic blood aovnsohf39 mm[Hg]Kusum Hemmer PA Work Phone: [phone])244-[address] [place], [place] [address]Wkybjwvnba16-34-1294 13:07-0500Heart rate72 /min Kusum Hemmer PA Work Phone: [phone] [place], [place] [address]Kcraqnlvfn45-80-4050 13:07-0500Respiratory rate16 /minVanen Hemmer PA Work Phone: [phone] [place], [place] [address]Ytpfrnbcgw87-95-1577 13:07-5464QkN8% (BldA) [Mass fraction]96 %Kusum Hemmer PA Work Phone: [address] [address]Lmoyamuhmr14-46-1787 13:07-0500Systolic blood fylyelio116 mm[Hg]Kusum Hemmer PA Work Phone: [facility] CenterBaitlqdpid44-56-8943 13:04-0400Body iikcly841.9 cmKusum Hemmer PA Work Phone: [phone])[facility]-65[address] CenterLoowjnzrlu62-75-0388 13:04-0400Body mass index (BMI) [Ratio]32.28 kg/u4Ateog Hemmer PA Work Phone: 1(314)[facility]-[address] [place], [place] [address]Gqyfqhrtgr20-97-1954 13:04-0400Body gebcpt770.96 kgKusum Hemmer PA Work Phone: 1(858)[facility]-029[address] CenterJwenouhgbh60-64-6753 13:04-0400Diastolic blood dmiahudm44 mm[Hg]Kusum Hemmer PA Work Phone: 1(902)[facility]-[address] [place], [place] [address]Atspcjzqhp71-43-4729 13:04-0400Heart rate58 /min Kusum Hemmer PA Work Phone: 1(308)[facility]-[address] [place], [place] [address]Eukoyjxgmm59-43-6656 13:04-0400Respiratory rate16 /minKusum Hemmer PA Work Phone: 1(504)[facility]-[address] [place], [place] [address]Lfjxehhbuz33-82-1257 13:04-0099FuH3% (BldA) [Mass fraction]99 %Kusum Hemmer PA Work Phone: 1(826)[facility]-[address] [place], [place] [address]Psapclghgx88-09-3030 13:04-0400Systolic blood mm[Hg]Kusum Hemmer PA Work Phone: 1(048)[facility]-[address] [place], [place] [address]Bacfnqjnfp19-69-9483 15:24-0400Body dzziqz021.82 kgDafrancis Bhatti II Work Phone: 1(339)[facility] [place], [place] [address]10-13-2025 15:24-0400 Diastolic blood ydncnbso22 mm[Hg]Tyson Bhatti II Work Phone: 1(883)[facility] [place], [place] [address]10-13-2025 15:24-0400 Heart rate89 /minDdonna Bhatti II Work Phone: [phone])[address] [place], [place] [address]10-13-2025 15:24-0400 SaO2% (BldA) [Mass fraction]98 %Tyson Bhatti II Work Phone: 1(614)[facility] [place], [place] [address]10-13-2025 15:24-0400 Systolic blood nlkypwcg764 mm[Hg]Tyson Bhatti II Work Phone: 1(499)133-[address] [place], [place] 1870509-18-2025 13:10-0400 Body zeclpp617.9 cmKaren Hemmer PA Work Phone: [facility] CenterWzpdhelxwf90-43-3663 13:10-0400Body mass index (BMI) [Ratio]31.68 kg/d3Ixoru Hemmer PA Work Phone: [facility] CenterJcberkyjzo75-46-2254 13:10-0400Body nfzxze364.96 kgKaren Hemmer PA Work Phone: [facility] CenterVgoryyohba01-61-2504 13:10-0400Diastolic blood apigbxvz08 mm[Hg]Kusum Hemmer PA Work Phone: [facility] CenterMctvniyzuz51-64-0594 13:10-0400Heart rate66 /min Kusum Hemmer PA Work Phone: [facility] CenterTtncdglhtt41-09-9263 13:10-0400Respiratory rate16 /minVanen Hemmer PA Work Phone: [facility] CenterXnigygpbci66-87-5347 13:10-4050DiX1% (BldA) [Mass fraction]96 %Kusum Hemmer PA Work Phone: [facility] CenterPjlaszvtpm32-86-2209 13:10-0400Systolic blood xalvdohv229 mm[Hg]Ksuum Hemmer PA Work Phone: [facility] CenterLftpiwmjhz84-78-0283 13:43-0400Body mibpge557.9 cmKaren Hemmer PA Work Phone: [facility] CenterEzielnmvai06-26-1759 13:43-0400Body mass index (BMI) [Ratio]30.95 kg/v3Rmujp Hemmer PA Work Phone: [facility] CenterFmyqigtvtk93-89-1086 13:43-0400Body bcvjob155.51 kgKaren Hemmer PA Work Phone: [facility] CenterMtbbntouoo96-18-8601 13:43-0400Diastolic blood mm[Hg]Kusum Hemmer PA Work Phone: [facility] CenterLcgopfqvdo02-94-4329 13:43-0400Heart rate88 /min Kusum Hemmer PA Work Phone: [facility] CenterIryuawklss23-61-7213 13:43-0400Respiratory rate16 /minKaren Hemmer PA Work Phone: [facility] CenterLttdlxyuop85-12-3775 13:43-7483RxK1% (BldA) [Mass fraction]99 %Kusum Hemmer PA Work Phone: [facility] CenterFubpfexbrr82-08-4800 13:43-0400Systolic blood lyhmboxd089 mm[Hg]Kusum Hemmer PA Work Phone: [facility] CenterXkesmfxfoy89-25-1254 13:06-0400Body udlhbd976.9 cmKaren Hemmer PA Work Phone: [facility] CenterPipurggsse69-03-7316 13:06-0400Body mass index (BMI) [Ratio]31.25 kg/w2Anlfu Hemmer PA Work Phone: [facility] CenterQfowadtyyd44-84-4320 13:06-0400Body .51 kgKaren Hemmer PA Work Phone: [facility] CenterEmupfvuuvd52-67-1363 13:06-0400Diastolic blood npaizbij31 mm[Hg]Kusum Hemmer PA Work Phone: [facility] CenterQpzxmbaqki18-40-7057 13:06-0400Heart rate76 /min Kusum Hemmer PA Work Phone: [facility] CenterNeobmnebfb28-72-8117 13:06-0400Respiratory rate16 /minKaren Hemmer PA Work Phone: [facility] CenterPjybtpdnse77-30-7193 13:06-9269HvH8% (BldA) [Mass fraction]96 %Kusum Hemmer PA Work Phone: [facility] CenterUlahwyjzpn30-10-5400 13:06-0400Systolic blood xynprusb113 mm[Hg]Kusum Hemmer PA Work Phone: [facility] CenterRiabhpbrhz13-67-6178 13:30-0400Body lyqsgy293.9 cmKaren Hemmer PA Work Phone: [facility] CenterGasdgwuxjo27-22-4241 13:30-0400Body mass index (BMI) [Ratio]30.87 kg/h4Dxnom Hemmer PA Work Phone: [facility] CenterOtcomzhiar85-06-7959 13:30-0400Body ocrxwz043.24 kgKaren Hemmer PA Work Phone: [address] [address]Jckksevqcn40-81-3427 13:30-0400Diastolic blood pufqtckv87 mm[Hg]Kusum Hemmer PA Work Phone: [facility] CenterLgbkjbmmiy04-11-8340 13:30-0400Heart rate60 /min Kusum Hemmer PA Work Phone: [facility] CenterVndgfuttwb71-28-4816 13:30-0400Respiratory rate16 /minKaren Hemmer PA Work Phone: [address] [address]Wjralaebnd64-22-1454 13:30-1046JwF4% (BldA) [Mass fraction]97 %Kusum Hemmer PA Work Phone: [facility] CenterKnuosqlxde33-72-3639 13:30-0400Systolic blood imzhytvr670 mm[Hg]Kusum Hemmer PA Work Phone: [facility] CenterTxxvssurph66-76-8522 13:44-0400Body .9 cmKaren Hemmer PA Work Phone: [facility] CenterSsnulfwvra72-93-6449 13:44-0400Body mass index (BMI) [Ratio]30.38 kg/j2Mceaq Hemmer PA Work Phone: [facility] CenterCefstdfdyj79-22-8307 13:44-0400Body smkter385.61 kgKaren Hemmer PA Work Phone: [address] [address]Nfacohlnzu40-36-9346 13:44-0400Diastolic blood auvctkgl67 mm[Hg]Kusum Hemmer PA Work Phone: [address] [address]Guhexbtixv13-15-6807 13:44-0400Heart rate63 /min Kusum Hemmer PA Work Phone: NOHaw[facility] HospitalXdkbthpqbi02-68-8991 13:44-5743HaD2% (BldA) [Mass fraction]95 %Kusum XAVIER Work Phone: NOHaw[facility] Psychiatric HospitalZvcboyleol29-69-4701 13:44-0400Systolic blood mm[Hg]Kusum [employer]IER Work Phone: NOHaw[facility]iatric HospitalTdtdiuywgl06-47-2568 15:55-0400Body fucmid554.9 cmTyson Bhatti MD Work Phone: NOHaw[facility]iatric HospitalJklecazzji15-00-4658 15:55-0400Body mass index (BMI) [Ratio]30.38 kg/r5XpbnjfTyson Bhatti MD Work Phone: [phone] Children's Psychiatric HospitalKvwzuubpuc90-63-3047 15:55-0400Body ndewdk697.61 kgTyson Bhatti MD Work Phone: NO[facility] HospitalFbxczufzuw52-26-4114 15:55-0400Diastolic blood iahaoflm74 mm[Hg]Tyson Bhatti MD Work Phone: NOHaw[facility] HospitalJhqptnfyof88-10-5280 15:55-0400Heart rate72 /min Tyson Bhatti MD Work Phone: NO[facility] HospitalSdooxynvrf68-01-3015 15:55-7326EtR3% (BldA) [Mass fraction]97 %Tyson Bhatti MD Work Phone: NO[facility] HospitalHiwkweldga91-71-7929 15:55-0400Systolic blood ekbhqyys541 mm[Hg]Tyson Bhatti MD Work Phone: NO[facility] HospitalXkyvhuqotr92-61-0169 08:39-0400Body ruoxwg011.9 cmTyson Bhatti MD Work Phone: [phone] Children's Psychiatric HospitalBgfyjbzptk23-82-9110 08:39-0400Body mass index (BMI) [Ratio]30.65 kg/e7OadtzwTyson Bhatti MD Work Phone: [phone] Children's Psychiatric HospitalAnfcrajmyz90-74-6688 08:39-0400Body qoedmo259.51 kgTyson Bhatti MD Work Phone: [facility] CenterKjktcgnnpv81-00-0131 08:39-0400Diastolic blood rxgoqmfe38 mm[Hg]Tyson Bhatti MD Work Phone: [facility] CenterZmralgszbm21-50-9660 08:39-0400Heart rate81 /min Tyson Bhatti MD Work Phone: [facility] CenterQgghsaagqu53-42-7928 08:39-0400Respiratory rate16 /minDdonna Bhatti MD Work Phone: [facility] CenterMqrdhnbwhy52-61-1057 08:39-4774MkA5% (BldA) [Mass fraction]96 %Tyson Bhatti MD Work Phone: [facility] CenterXqmuipphrn14-62-5284 08:39-0400Systolic blood bajuppuv220 mm[Hg]Tyson Bhatti MD Work Phone: [facility] CenterNcofkowuem30-82-9228 20:38-0400Body temperature 97.7 [degF]Josue Hilarioister DO Work Phone: [facility]05-28-2025 20:38-0400 Diastolic blood mlkyfffd48 mm[Hg]Josue Richister DO Work Phone: [facility]05-28-2025 20:38-0400 Heart rate71 /minAlexandsandrita Hilarioister DO Work Phone: [facility]05-28-2025 20:38-0400 Respiratory rate16 /minAlexandsandrita Hilarioister DO Work Phone: [facility]05-28-2025 20:38-0400 SaO2% (BldA) [Mass fraction]98 %Josue Richister DO Work Phone: [facility]05-28-2025 20:38-0400 Systolic blood rlfpxilg692 mm[Hg]Josue Richister DO Work Phone: [facility]05-28-2025 18:21-0400 Body escffp823.88 cmAlexmarilyn Hilarioister DO Work Phone: [facility]05-28-2025 18:21-0400 Body aclwsr368.32 kgAlexander Jake DO Work Phone: [facility]05-05-2025 15:49-0400 Heart rate70 /minDdonna Bhatti MD Work Phone: [facility] CenterEnakddpysd90-04-2127 15:27-0400Body exfblx582.9 cmTyson Bhatti MD Work Phone: [facility] CenterVyifaxpngs13-60-4964 15:27-0400Body mass index (BMI) [Ratio]31.06 kg/z9ClbaleTyson Bhatti MD Work Phone: [facility] CenterCtmxszumrv76-97-2643 15:27-0400Body .87 kgTyson Bhatti MD Work Phone: [facility] CenterFdvpqdsnji86-26-1951 15:27-0400Diastolic blood urywevoq24 mm[Hg]Tyson Bhatti MD Work Phone: [facility] CenterGlrohxjqtz92-39-7106 15:27-2180CqA4% (BldA) [Mass fraction]97 %Tyson Bhatti MD Work Phone: [facility] CenterZyjagbgjld12-17-4051 15:27-0400Systolic blood fpiocxct457 mm[Hg]Tyson Bhatti MD Work Phone: [facility] CenterSfptgbgbsu03-46-9680 09:33-0400Body sotnyt538.9 cmChristopher Sukhwinder DO Work Phone: [facility] CenterVxqrugtlmc25-35-0741 09:33-0400Body mass index (BMI) [Ratio]31.19 kg/x5Hooaczqajue Sukhwinder DO Work Phone: [facility] CenterXakmyklgqb85-41-2641 09:33-0400Body hzvgfa629.33 kgChristopher Sukhwinder DO Work Phone: noHaw[facility] Psychiatric HospitalUumrkehpeg79-63-4124 09:33-0400Diastolic blood ohponbep93 mm[Hg]Kacy Pretty DO Work Phone: NOHaw[facility] Psychiatric HospitalYmxohcxgsi68-48-2102 09:33-0400Systolic blood vkmqyztz049 mm[Hg]Christjolynn Sukhwinder DURAN Work Phone: NO[facility] HospitalUtglycbqhy58-07-8317 15:02-0400Body qtsajd136.9 cmTyson Bhatti MD Work Phone: [facility] [id number] 15:02-0400Body mass index (BMI) [Ratio]30.92 kg/s1LnrcqbTyson Bhatti MD Work Phone: [facility] [id number] 15:02-0400Body aykeun474.42 kgTyson Bhatti MD Work Phone: [facility] HospitalYqvgixwuoj72-61-0143 15:02-0400Diastolic blood mm[Hg]Tyson Bhatti MD Work Phone: [facility] [id number] 15:02-0400Heart rate68 /min Tyson Bhatti MD Work Phone: [facility] HospitalZsbrqhyrnu32-59-1306 15:02-3669JkL8% (BldA) [Mass fraction]95 %Tyson Bhatti MD Work Phone: [facility] [id number] 15:02-0400Systolic blood duattlti901 mm[Hg]Tyson Bhatti MD Work Phone: NO[facility] HospitalFzexujremu97-08-5434 14:43-0500Body gipegq968.9 cmTyson Bhatti MD Work Phone: NO[facility] HospitalZakjtcqgje53-44-9457 14:43-0500Diastolic blood skxxlysh52 mm[Hg]Tyson Bhatti MD Work Phone: NO[facility] HospitalSnbovxfgoo14-60-8237 14:43-0500Heart rate74 /min Tyson Bhatti MD Work Phone: NO[facility] HospitalCqrvwmjapm68-41-9372 14:43-0786YkV7% (BldA) [Mass fraction]94 %Tyson Bhatti MD Work Phone: NO[facility] HospitalFmyknpajdw79-73-2335 14:43-0500Systolic blood ldeyewva928 mm[Hg]Tyson Bhatti MD Work Phone: 1(419)483-[address] [place], [place] [address]Pojuftknxt19-71-0472 09:02-0500Body hiiiuj586.9 cmKaren Hemmer PA Work Phone: 1(486)[facility] CenterSgrjlqwllv53-56-8536 09:02-0500Body mass index (BMI) [Ratio]31.22 kg/x6Wkxcn Hemmer PA Work Phone: 1(419)[facility]-5452[facility] CenterBqogidrlfp29-83-2202 09:02-0500Body qhoftk909.42 kgVanen Hemmer PA Work Phone: 1(419)[facility] [place], [place] [address]Iisxpwrgxq09-77-3550 09:02-0500Diastolic blood yeiwknah33 mm[Hg]Kusum Hemmer PA Work Phone: 1(419)[facility] [place], [place] [address]Tzqxeolmjh36-25-7795 09:02-0500Heart rate82 /min Kusum Hemmer PA Work Phone: 1(419)[facility] [place], [place] [address]Pizjdodfof79-57-6661 09:02-0500Respiratory rate16 /minVanen Hemmer PA Work Phone: 1(400)[facility] [place], [place] [address]Uhwtdibalu31-32-9172 09:02-1095AcA4% (BldA) [Mass fraction]97 %Kusum Hemmer PA Work Phone: 1(463)[facility] [place], [place] [address]Kbuobjfpwz11-41-0976 09:02-0500Systolic blood esxzadyr776 mm[Hg]Kusum Hemmer PA Work Phone: 1(731)[facility] [place], [place] [address]Rvrtlwwgks85-70-0128 09:38-0500Body togaww944.9 cmTyson Bhatti MD Work Phone: 1(346)[facility] [place], [place] [address]Abwrjnoizh72-47-1606 09:38-0500Body mass index (BMI) [Ratio]31.06 kg/o2ZrefhlTyson Bhatti MD Work Phone: 1(419)[facility] [place], [place] [address]Xicfpyyeiw60-10-0812 09:38-0500Body yhqlrw700.87 kgTyson Bhatti MD Work Phone: 1(419)[facility] [place], [place] [address]Ikesbcrfzo67-71-1639 09:38-0500Diastolic blood hpnlvbli19 mm[Hg]Tyson Bhatti MD Work Phone: 1(139)[facility]-313[facility] HealthcareComment on above:standing 112 64 07-01-2024 09:38-0500Heart rate63 /minDaniel Bhatti MD Work Phone: [facility] CenterGjfeddxvzm30-35-3747 09:38-7096FiC1% (BldA) [Mass fraction]95 %Tyson Bhatti MD Work Phone: [facility] CenterHsglelozds75-54-4988 09:38-0500Systolic blood smfojbkb215 mm[Hg]Tyson Bhatti MD Work Phone: 1(419)[facility]-5860[facility] HealthcareComment on above:standing 112 64 06-21-2024 08:54-0500Body qsixde908.9 cmSmarco Camp ORDER PROCESSOR Work Phone: 1(419)[facility] [place], [place] [address]Agjbfemnbt00-53-5959 08:54-0500Body mass index (BMI) [Ratio]31.22 kg/i6IllbmdAyesha Camp ORDER PROCESSOR Work Phone: [facility] CenterRucniddfzc53-94-3363 08:54-0500Body imcmxa204.42 kgAyesha Camp ORDER PROCESSOR Work Phone: 1(419)[facility] [place], [place] [address]Zgyekfqccx39-92-3675 08:54-0500Diastolic blood zhczbzay54 mm[Hg]Ayesha Camp ORDER PROCESSOR Work Phone: 1(419)[facility]-[address] [place], [place] [address]Gtcbpsmuxf47-00-6035 08:54-0500Heart rate87 /min Ayesha Camp ORDER PROCESSOR Work Phone: 1(419)[facility]-[address] [place], [place] [address]Efshfqaclo77-22-1847 08:54-0500Respiratory rate17 /minSmarco Camp ORDER PROCESSOR Work Phone: 1(419)[facility] [place], [place] [address]Zspksjjdzp57-70-4931 08:54-2182DzU1% (BldA) [Mass fraction]98 %Ayesha Camp ORDER PROCESSOR Work Phone: 1(419)[facility]-714NOHaw[facility] Psychiatric HospitalNuxwthgthw32-42-2833 08:54-0500Systolic blood ierljcof917 mm[Hg]Ayesha Camp ORDER PROCESSOR Work Phone: 1(419)[facility]856NOHaw[facility] Psychiatric HospitalLzjwildggm47-01-3114 09:46-0500Body zuoapp213.9 cmTyson Bhatti MD Work Phone: NO[facility] HospitalMasxfxiqaw51-71-7497 09:46-0500Body mass index (BMI) [Ratio]32.14 kg/j2QsamjrTyson Bhatti MD Work Phone: NO[facility] HospitalWohwpvbwfc57-02-1145 09:46-0500Body jkzyqj218.5 kgTyson Bhatti MD Work Phone: NO[facility] HospitalVpfcrlgemb44-71-0952 09:46-0500Diastolic blood vbadoono64 mm[Hg]Tyson Bhatti MD Work Phone: NOIN HealthcareComment on above:standing 100 66 05-27-2024 09:46-0500Heart rate56 /minDdonna Bhatti MD Work Phone: NO[facility] HospitalFkzbswuclf70-97-6619 09:46-0020UuV3% (BldA) [Mass fraction]94 %Tyson Bhatti MD Work Phone: NO[facility] HospitalKqwwiocmaa00-31-1116 09:46-0500Systolic blood ekelkndi604 mm[Hg]Tyson Bhatti MD Work Phone: NOIN HealthcareComment on above:standing 100 66 05-16-2024 12:07-0500Body mass index (BMI) [Ratio]32.28 kg/r3Bxcjisyldzs Sukhwinder DO Work Phone: NO[facility] HospitalGwahqvlawc43-57-8877 12:07-0500Body xwpyqr733.96 kgChristopher Sukhwinder DO Work Phone: NO[facility] HospitalHydmuwxoef78-43-0571 12:07-0500Diastolic blood ugfqsepx64 mm[Hg]Christopher Sukhwinder DO Work Phone: NO[facility] HospitalPyagwcvwuv02-94-1639 12:07-0500Heart rate89 /min Christopher Sukhwinder DO Work Phone: NO[facility] HospitalOcwotttokp42-75-5696 12:07-5300LrQ3% (BldA) [Mass fraction]97 %Christopher Sukhwinder DO Work Phone: NO[facility] HospitalVleuulltsl00-98-1230 12:07-0500Systolic blood ejxghhez720 mm[Hg]Christopher Sukhwinder DO Work Phone: NO[facility] HospitalZifuchbelc67-69-7055 10:00-0500Body xdluia150.9 cmDaniel Bhatti MD Work Phone: [facility] CenterNnztrbhcuk70-99-9564 10:00-0500Body mass index (BMI) [Ratio]32.69 kg/m3MdbsdmTyson Bhatti MD Work Phone: [facility] CenterTumbtyxyth60-01-4086 10:00-0500Body khkwsu973.32 kgTyson Bhatti MD Work Phone: [facility] CenterZwlviuraul81-72-2568 10:00-0500Diastolic blood dhzsopfx56 mm[Hg]Tyson Bhatti MD Work Phone: 1(407)932-[address] [place], [place] [address]Ifaquequdm61-76-4433 10:00-0500Heart rate70 /min Tyson Bhatti MD Work Phone: 1(122)[facility]-[address] [place], [place] [address]Jtlvxdrymb31-73-1708 10:00-4723CrJ9% (BldA) [Mass fraction]95 %Tyson Bhatti MD Work Phone: 1(798)343-[address] [place], [place] [address]Lfxtjhqbuy09-57-1014 10:00-0500Systolic blood xafkwymc024 mm[Hg]Tyson Bhatti MD Work Phone: 1(785)691-[address] [place], [place] [address]Ppynjizlwt36-72-0755 10:58-0400Body rgbiei755.9 cmTyson Bhatti MD Work Phone: [phone] CenterGnhkemdkch62-74-4385 10:58-0400Body mass index (BMI) [Ratio]32.41 kg/g2CqciciyTson Bhatti MD Work Phone: 1(794)[address]2568[address] [place], [place] [address]Xdlpnwwmkx78-37-2648 10:58-0400Body rbvank776.41 kgTyson Bhatti MD Work Phone: 1(089)430-[address] [place], [place] [address]Rqomfghvxg61-73-8480 10:58-0400Diastolic blood dlwmkixy51 mm[Hg]Tyson Bhatti MD Work Phone: 1(249)723-[address] [place], [place] [address]Mxvlycitjs20-68-4433 10:58-0400Heart rate94 /min Tyson Bhatti MD Work Phone: [facility] CenterJaaxsmejgj05-34-2519 10:58-9125WcD1% (BldA) [Mass fraction]96 %Tyson Bhatti MD Work Phone: 1(598)444-[address] [place], [place] [address]Wwmgfwapkq00-11-8726 10:58-0400Systolic blood mm[Hg]Tyson Bhatti MD Work Phone: [facility] CenterEfnumjaxts79-11-8458 14:31-0400Body ybikjk490.9 cmTyson Bhatti MD Work Phone: [facility] CenterQyjpiiorzn01-61-8638 14:31-0400Body mass index (BMI) [Ratio]32.28 kg/a4YxzxjoTyson Bhatti MD Work Phone: [facility] CenterYevfxhgbnt21-73-1195 14:31-0400Body dseeww277.96 kgTyson Bhatti MD Work Phone: [facility] CenterGzlvsfnabb47-87-7297 14:31-0400Diastolic blood mm[Hg]Tyson Bhatti MD Work Phone: [facility] CenterWsesbtsbph20-94-7698 14:31-0400Heart rate80 /min Tyson Bhatti MD Work Phone: [phone] CenterOlwcuiofcy76-18-3561 14:31-2376BgD0% (BldA) [Mass fraction]98 %Tyson Bhatti MD Work Phone: [facility] CenterNnlfflhbwm49-03-1084 14:31-0400Systolic blood mm[Hg]Tyson Bhatti MD Work Phone: [facility] CenterFhwhxepwjf66-82-7852 14:46-0400Body mass index (BMI) [Ratio]32.41 kg/y8EwmiqdTyson Bhatti MD Work Phone: [phone] CenterFmoyveooax38-22-4675 14:46-0400Body lqauwi786.41 kgTyson Bhatti MD Work Phone: [facility] CenterOyldnjpzxv94-72-2694 14:46-0400Diastolic blood gyhdvhpq71 mm[Hg]Tyson Bhatti MD Work Phone: [facility] CenterQgsntnsxkb76-64-7103 14:46-0400Heart rate83 /min Tyson Bhatti MD Work Phone: NO[facility] HospitalRuxxovkovp94-63-2190 14:46-4416HkL6% (BldA) [Mass fraction]97 %Tyson Bhatti MD Work Phone: [facility] CenterExzblrnarb94-52-0111 14:46-0400Systolic blood wpupszyh239 mm[Hg]Tyson Bhatti MD Work Phone: [facility] CenterYicqkoqhyx26-76-6032 08:15-0400Body temperature 98.4 [degF]DO [employer] Work Phone: 1(337)[address]07-17-2024 08:15-0400 Diastolic blood icyrtthm61 mm[Hg]DO Emigdio Villanueva Work Phone: 1(023)[address] [place], [place] 2248507-17-2024 08:15-0400 Heart rate98 /minDO [employer] Work Phone: 1(725)[address] [place], [place] 2248507-17-2024 08:15-0400 Respiratory rate18 /minDO [employer] Work Phone: 1(122)[address] [place], [place] 2248507-17-2024 08:15-0400 SaO2% (BldA) [Mass fraction]95 %DO [employer] Villanueva Work Phone: 1(840)[address] [place], [place] 2248507-17-2024 08:15-0400 Systolic blood dtbpiwsz002 mm[Hg]DO Em[employer] Villanueva Work Phone: 1(356)[address] [place], [place] 2248507-17-2024 05:37-0400 Body ushpnc943.6 kgDO [employer] Work Phone: 1(425)[address]07-12-2024 13:45-0400 Body advdog130.88 cmDO [employer] Work Phone: 1(460)[address] [place], [place] 2248507-11-2024 15:53-0400 Diastolic blood txycmzov569 mm[Hg]DO [employer] Work Phone: 1(369)[address] [place], [place] 2248507-11-2024 15:53-0400 Heart rate74 /minDO [employer] Work Phone: 1(923)[address]07-11-2024 15:53-0400 Respiratory rate16 /minDO [employer] Work Phone: 1(863)[address] [place], [place] 2248507-11-2024 15:53-0400 SaO2% (BldA) [Mass fraction]99 %DO [employer] Work Phone: 1(319)[address] [place], [place] 2248507-11-2024 15:53-0400 Systolic blood hsoikyjt198 mm[Hg]DO [employer] [facility] Work Phone: 1(469)[address] [place], [place] 2248507-11-2024 10:40-0400 Body hhraheljjtl59.8 [degF]DO [employer] Work Phone: 1(898)[address] [place], [place] 2248507-11-2024 10:39-0400 Body hatdvu169.88 cmDO [employer] Work Phone: 1(758)[address] [place], [place] 2248507-11-2024 10:39-0400 Body .1 kgDO [employer] Work Phone: 1(080)[address] [place], [place] 2248502-21-2024 09:50-0500 Body gjuyfx117.88 cmDO [employer] Work Phone: 1(075)[address]02-21-2024 09:50-0500 Body mass index (BMI) [Ratio]28.8 kg/m2DO [employer] Work Phone: 3(172)025-[address] [place], [place] 3177202-21-2024 09:50-0500 Body nqfxgaablnw025.6 [degF]DO Emigdio Villanueva Work Phone: 1(355)998-[address] [place], [place] 3177202-21-2024 09:50-0500 Body lltaxi65.61 kgDO [employer] Work Phone: 1(494)2-[address] [place], [place] 3177202-21-2024 09:50-0500 Diastolic blood mm[Hg]DO [employer] Work Phone: 1(032)372-[address] [place], [place] 3177202-21-2024 09:50-0500 Heart rate51 /minDO [employer] Work Phone: 3(555)648-[address] [place], [place] 3177202-21-2024 09:50-0500 Respiratory rate18 /minDO [employer] Work Phone: 1(044)997-[address] [place], [place] 3177202-21-2024 09:50-0500 SaO2% (BldA) [Mass fraction]97 %DO Emigdio Villanueva Work Phone: [facility]02-21-2024 09:50-0500 Systolic blood zmkzfcyu239 mm[Hg]DO Emigdio Villanueva Work Phone: [facility]02-14-2024 10:45-0500 Body kbkyvl632.[address]02-14-2024 10:45-0500 Body mass index (BMI) [Ratio]29.84 kg/m[address] 07-22-2023 10:45-0500Body ydwtde93.[address] 07-22-2023 10:45-0500Diastolic blood yujwtfct74 mm[Hg][address]02-14-2024 10:45-0500Systolic blood uuanqfur521 mm[Hg][address]01-12-2024 13:36-0500Diastolic blood hlsulojq00 mm[Hg]Fletcher Ziegler MD Work Phone: 1(058)251-[address] [place], [place] 2862301-12-2024 13:36-0500 Systolic blood goydgkfu883 mm[Hg]Fletcher Ziegler MD Work Phone: 1(120)538-[address] [place], [place] 2862301-12-2024 13:20-0500 Body .9 cmFletcher Ziegler MD Work Phone: 1(595)[address] [place], [place] 2862301-12-2024 13:20-0500 Body mass index (BMI) [Ratio]29.84 kg/l5XsijpvdFletcher Ziegler MD Work Phone: 1(666)524-[address] [place], [place] 2862301-12-2024 13:20-0500 Body .79 kgFletcher Ziegler MD Work Phone: 1(278)[address] [place], [place] 2862301-12-2024 13:20-0500 Heart rate86 /minFletcher Ziegler MD Work Phone: 1(615)[address] [place], [place] 2862310-08-2021 13:00-0400 Body iwjpot540.42 cmCharles P House Work Phone: [phone]-Pylbt [facility] DO Work Phone: 1(889) 335-923510-08-2021 13:00-0400Body mass index (BMI) [Ratio] 29.95 kg/b7Acfivun P House Work Phone: [phone]-Ijckt [facility] [facility] DO Work Phone: 1(755) 328-864310-08-2021 13:00-0400Body surface area Derived from formula2.27 v2Mgftick P House Work Phone: mp144-3104VQ-Nnwtn [facility] [address] DO Work Phone: 1(286) 388-215310-08-2021 13:00-0400Body lsoiyl107.97 kgCharles P House Work Phone: mp020-5786NB-Fuvuk [facility] [address] DO Work Phone: 1(895) 734-872310-08-2021 13:00-0400Diastolic blood mm[Hg] Emigdio P House Work Phone: [phone]-Vcnjf [facility] [address] DO Work Phone: 1(852) 124-165010-08-2021 13:00-0400Heart rate84 /minCharles P House Work Phone: mp474-0896ML-Rmaco [facility] [address] DO Work Phone: 1(658) 525-619710-08-2021 13:00-0400Systolic blood jxyxkhkd588 mm[Hg] Emigdio P House Work Phone: [phone]-Ivxas [facility] DO Work Phone: Encounters Encounter DateEncounter TypeCare ProviderFacilityStart: 04-17-2025 End: 29-53-9255Gulpfrtevin XAVIER Work Phone: [facility] MedinceStart: 04-17-2025 End: 42-19-9571Kwksgetevin XAVIER Work Phone: [facility] MedinceStart: 04-17-2025 End: 78-81-1031Gqbuat outpatient visit 15 minutesVanmadhu Ferrari PA Work Phone: noMS [facility] MedinceComment on above:Paroxysmal atrial fibrillation (HCC) (Primary Dx); Anticoagulant long-term use; Chronic diastolic (congestive) heart failure (HCC)Start: 04-17-2025 End: 05-26-4528ckojrkhceqNJRMP M HEMMERNot AvailableStart: 03-27-2025 End: 21-14-6877Jftlgi Jory Ferrari PA Work Phone: [facility] MedinceStart: 03-27-2025 End: 33-90-6379Bteeyi Jory Ferrari PA Work Phone: [facility] MedinceStart: 03-27-2025 End: 92-43-1272Pprxjt outpatient visit 15 minutesKusum Ferrari PA Work Phone: [facility] MedinceComment on above:Paroxysmal atrial fibrillation (HCC) (Primary Dx); Anticoagulant long-term use; Primary hypertensionStart: 03-27-2025 End: 50-30-6237tskgybzssjTXIEL M HEMMERNot AvailableStart: 03-20-2025 End: 27-32-8330pwendisyhqJrlqdz Bhatti II Work Phone: [facility] Work Phone: Start: 03-20-2025 End: 66-73-5272Ilcunxv encounter procedureChristopher Sukhwinder Arellano DO-BRENT Grider Work Phone: Start: 02-23-2025 End: 35-90-3159Lqeyjg Jory Ferrari PA Work Phone: [facility] [facility] MedinceStart: 02-23-2025 End: 43-13-2617Mclcgm Jory Ferrari PA Work Phone: [facility] MedinceStart: 02-23-2025 End: 63-81-4041Guiuvx outpatient visit 15 minutesKusum Ferrari PA Work Phone: [facility] MedinceComment on above:Paroxysmal atrial fibrillation (HCC) (Primary Dx); Anticoagulant long-term useStart: 02-23-2025 End: 36-80-5533rmnrzjgmzxUKRTS M HEMMERNot AvailableStart: 02-20-2025 End: 44-80-2941LbupqgVdqtkv B Berry MD Work Phone: [facility] MedinceComment on above:Primary open angle glaucoma (POAG) of both eyes, moderate stage (Primary Dx)Start: 01-26-2025 End: 30-33-3976Ynzjnksuraj Ferrari PA Work Phone: [facility] MedinceStart: 01-26-2025 End: 29-51-6906Zyimdfsuraj Ferrari PA Work Phone: [facility] MedinceStart: 01-26-2025 End: 04-01-8021fzlxciofwlRMVNU M HEMMERNot AvailableStart: 01-26-2025 End: 09-29-8332Vprorv outpatient visit 15 minutesKusum Ferrari PA Work Phone: [facility] MedinceComment on above: Anticoagulant long-term use (Primary Dx); Paroxysmal atrial fibrillation (HCC)Start: 01-12-2025 End: 26-90-6438Hyqkxisuraj Ferrari PA Work Phone: [facility] MedinceStart: 01-12-2025 End: 63-09-9679Rragpytevin Ferrari PA Work Phone: [facility] MedinceStart: 01-12-2025 End: 00-90-0405Ncgvpb outpatient visit 15 minutesKusum Ferrari PA Work Phone: [facility] MedinceComment on above:Paroxysmal atrial fibrillation (HCC) (Primary Dx); Anticoagulant long-term useStart: 01-12-2025 End: 97-74-0848tkupffpvmmUCSNG M HEMMERNot AvailableStart: 01-05-2025 End: 28-14-5681Ludbpc Jory Arellano Hemmer PA Work Phone: [facility] [facility] MedinceStart: 01-05-2025 End: 49-80-8784Wzxsez Jory Arellano Hemmer PA Work Phone: [facility] MedinceStart: 01-05-2025 End: 06-94-4230Bkgvhl outpatient visit 15 minutesKusum Ferrari PA Work Phone: [facility] MedinceComment on above: Anticoagulant long-term use (Primary Dx); Paroxysmal atrial fibrillation (HCC)Start: 01-05-2025 End: 41-62-8469lcrzgukwjsRTHJQ M HEMMERNot AvailableStart: 12-22-2024 End: 28-67-3248Zpdvxf Jory Arellano Hemmer PA Work Phone: [facility] CI FMStart: 12-22-2024 End: 44-90-4762Gvmphq Jory Arellano Hemmer PA Work Phone: [facility] CI FMStart: 12-22-2024 End: 76-27-1140Devtud outpatient visit 15 minutesKusum Ferrari PA Work Phone: [facility] CI FMComment on above:Anticoagulant long-term use (Primary Dx); Longstanding persistent atrial fibrillation (HCC)Start: 12-22-2024 End: 10-45-4605mzieebqrvxQMBYN M HEMMERNot AvailableStart: 12-19-2024 End: 78-38-5617Ampbhc outpatient visit 15 minutesTyson Bhatti MD Work Phone: [facility] CI FMComment on above:Longstanding persistent atrial fibrillation (HCC)Start: 12-19-2024 End: 70-99-6259ugijszpabzAIXYJM B BERRYNot AvailableStart: 12-19-2024 End: 89-66-1597Ilejza Robert Bhatti MD Work Phone: [facility] CI FMStart: 12-19-2024 End: 31-88-5194Uyipwm Robert Bhatti MD Work Phone: [facility] CI FMStart: 12-05-2024 End: 39-08-1407Rphmtj Robert Bhatti MD Work Phone: [facility] CI FMStart: 12-05-2024 End: 21-51-3702Mmsgrw Robert Bhatti MD Work Phone: [facility] CI FMStart: 12-05-2024 End: 62-46-2800kgmhlmshlnPQLBZA B BERRYNot AvailableStart: 12-05-2024 End: 69-15-6612Shqykx outpatient visit 25 minutesDafrancis Bhatti MD Work Phone: [facility] CI FMComment on above:Moderate late onset 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 disturbance, psychotic disturbance, mood disturbance, or anxiety (HCC) (Primary Dx); Anticoagulant long-term use; Longstanding persistent atrial fibrillation (HCC)Start: 11-10-2024 End: 28-56-7433Zkqhpjp encounter procedureAlexander Keister DO Work Phone: [facility] [place] Work Phone: Start: 11-10-2024 End: 67-75-1688zorvotfzccTjnzkdczv A Keister DO Work Phone: [facility] Work Phone: Start: 11-10-2024 End: 30-37-6364Ayrcmzbdr encounterIsabelle Rucker NP Work Phone: [facility] CI FMStart: 11-02-2024 End: 81-27-2995Bxafaidiv department patient visitAlexander Keister DO Work Phone: [facility] Work Phone: Start: 10-10-2024 End: 69-71-1992Fkvvof outpatient visit 15 minutesTyson Bhatti MD Work Phone: [facility] CI FMComment on above:Longstanding persistent atrial fibrillation (CMS/HCC)Start: 10-10-2024 End: 02-31-7405nsrwghxckmEVSHMR B BERRYNot AvailableStart: 10-03-2024 End: 70-06-4915Yvhpbf flowsheetChristopher Sukhwinder DO Work Phone: aNA BELLEVUEStart: 10-03-2024 End: 05-28-1164Hzdvlk flowsheetChristopher Sukhwinder DO Work Phone: a[facility] BELLEVUEStart: 10-03-2024 End: 13-95-2222Rzgupc outpatient visit 15 minutesChristopher Sukhwinder DO Work Phone: aNA BELLEVUEComment on above: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) (Primary Dx); History of ischemic strokeStart: 10-03-2024 End: 60-34-7501plopybijfbDZTJFSXGLQW HASSETTNot AvailableStart: 08-29-2024 End: 99-53-0519Zkiqek outpatient visit 25 minutesTyson Bhatti MD Work Phone: [facility] CI FMComment on above:Alzheimer's disease with late onset (CODE) (CMS/HCC) (Primary Dx); Longstanding persistent atrial fibrillation (CMS/HCC)Start: 08-29-2024 End: 29-83-0813wsptzffgauMPAWQJ B BERRYNot AvailableStart: 08-29-2024 End: 61-64-3718Hgmerp flowsNikkie Bhatti MD Work Phone: [facility] CI FMStart: 08-29-2024 End: 46-65-1418Dtrqqi Robert Bhatti MD Work Phone: [facility] CI FMStart: 08-01-2024 End: 01-39-7620Vdqxt of hemosiderin, quantTyson Bhatti MD Work Phone: [facility] HealthcareStart: 08-01-2024 End: 34-33-3955Pflfqlm encounter procedureTyson Bhatti MD Work Phone: [facility] CI FMComment on above:Routine general medical examination at health care facility (Primary Dx); ACP (advance care planning); Longstanding persistent atrial fibrillation (CMS/HCC)Start: 08-01-2024 End: 47-91-5838mrzujiwxzlIXZRDD B BERRYNot AvailableStart: 08-01-2024 End: 01-57-3378Mesatz Robert Bhatti MD Work Phone: [facility] CI FMStart: 08-01-2024 End: 47-04-6145Sfzjdi Robert Bhatti MD Work Phone: [facility] CI FMStart: 07-04-2024 End: 20-51-7194Gldxie Jory Ferrari PA Work Phone: [facility] CI FMStart: 07-04-2024 End: 97-91-8446Ihtenq Jory Ferrari PA Work Phone: [facility] CI FMStart: 07-04-2024 End: 29-19-9535Dacfyy outpatient visit 15 minutesKusum Ferrari PA Work Phone: [facility] CI FMComment on above:Longstanding persistent atrial fibrillation (CMS/HCC) (Primary Dx); Anticoagulant long-term useStart: 07-04-2024 End: 31-86-3079vxdhvlizvbOSJIF M HEMMERNot AvailableStart: 07-01-2024 End: 24-42-9783Icigjn Robert Bhatti MD Work Phone: [facility] CI FMStart: 07-01-2024 End: 98-50-7840Oiwfyq Robert Bhatti MD Work Phone: [facility] CI FMStart: 07-01-2024 End: 43-80-9577Yjusms outpatient visit 25 minutesTyson Bhatti MD Work Phone: [facility] CI FMComment on above:Acute non-recurrent pansinusitis (Primary Dx); Longstanding persistent atrial fibrillation (CMS/HCC); Dementia in other diseases classified elsewhere, severe, with agitation (CMS/HCC); Alzheimer's disease with late onset (CODE) (CMS/HCC); Orthostatic hypotensionStart: 07-01-2024 End: 79-76-9092mxfxddjojqKWJJKK B BERRYNot AvailableStart: 06-28-2024 End: 66-70-6490Eubrocgvi Result EncounterKusum XAVIER Work Phone: [facility] Department UnsolicitedStart: 06-28-2024 End: 84-63-6080Iawzbkbkm Result EncounterKusum XAVIER Work Phone: [facility] External Department UnsolicitedStart: 06-21-2024 End: 96-62-6160Gniiqm Tamika Camp ORDER PROCESSOR Work Phone: [facility] CI FMStart: 06-21-2024 End: 20-03-5789Nxrmfpsuraj Camp ORDER PROCESSOR Work Phone: [phone] CI FMStart: 06-21-2024 End: 97-49-5379Fboqsv outpatient visit 25 minutesShjason Camp ORDER PROCESSOR Work Phone: [facility] CI FMComment on above:Cerumen debris on tympanic membrane of both ears (Primary Dx); Weakness; Other fatigue; Acute non-recurrent pansinusitis; Longstanding persistent atrial fibrillation (CMS/HCC); Dementia in other diseases classified elsewhere, moderate, without behavioral disturbance, psychotic disturbance, mood disturbance, and anxiety (CMS/HCC); Unspecified atrial fibrillation (CMS/HCC); Dementia in other diseases classified elsewhere, severe, with agitation (CMS/HCC); Alzheimer's disease with late onset (CODE) (CMS/HCC)Start: 06-21-2024 End: 51-25-4602bmljsrqfyzXQPGVXDarius Santos AvailableStart: 05-27-2024 End: 31-69-6026Qdioof Robert Bhatti MD Work Phone: [facility] CI FMStart: 05-27-2024 End: 76-30-8114Bxbogs Robert hBatti MD Work Phone: [facility] CI FMStart: 05-27-2024 End: 31-69-7650Oufpxp outpatient visit 25 minutesTyson Bhatti MD Work Phone: [facility] CI FMComment on above:Orthostatic hypotension (Primary Dx); Longstanding persistent atrial fibrillation (CMS/HCC)Start: 05-27-2024 End: 90-69-3528zuhfuqgmahZUGUIS B BERRYNot AvailableStart: 05-16-2024 End: 63-53-8185Powhjt flowsheetChristopher Sukhwinder DO Work Phone: [facility] [address]TEStart: 05-16-2024 End: 92-33-7250Pbgoxo flowsheetChristopher Sukhwinder DO Work Phone: [facility] [address]TEStart: 05-16-2024 End: 44-31-5038Ucyhki outpatient visit 25 minutesChristopher Sukhwinder DO Work Phone: [facility] [address] [address] R[address]TEComment on above: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) (Primary Dx); History of ischemic strokeStart: 05-16-2024 End: 71-22-0140rfawljfwhkJGEHIDSMWCX HASSETTNot AvailableStart: 04-29-2024 End: 23-05-9391Yuaptl Robert Bhatti MD Work Phone: [facility] CI FMStart: 04-29-2024 End: 15-83-9980Dgyjiw Robert Bhatti MD Work Phone: [facility] CI FMStart: 04-29-2024 End: 60-64-2113Odghst outpatient visit 25 minutesTyson Bhatti MD Work Phone: [facility] CI FMComment on above:Longstanding persistent atrial fibrillation (CMS/HCC)Start: 04-29-2024 End: 94-19-8935enkzyoffvnNHGUGM B BERRYNot AvailableStart: 03-18-2024 End: 37-93-8684Ypydlb Robert Bhatit MD Work Phone: [facility] CI FMStart: 03-18-2024 End: 39-36-4248Kxxgrl Robert Bhatti MD Work Phone: [facility] CI FMStart: 03-18-2024 End: 50-36-6339Ykuuwq outpatient visit 15 minutesTyson Bhatti MD Work Phone: [facility] CI FMComment on above:Longstanding persistent atrial fibrillation (CMS/HCC)Start: 02-29-2024 End: 79-63-6975Mtlift outpatient visit 25 minutesTyson Bhatti MD Work Phone: [facility] CI FMComment on above:LVH (left ventricular hypertrophy) (Primary Dx); Longstanding persistent atrial fibrillation (CMS/HCC); Localized edemaStart: 02-17-2024 End: 61-22-7908Ekkrpy outpatient visit 25 minutesTyson Bhatti MD Work Phone: [facility] CI FMComment on above:Longstanding persistent atrial fibrillation (CMS/HCC) (Primary Dx); 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); History of coronary artery bypass graft; Moderate late onset 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 disturbance, psychotic disturbance, mood disturbance, or anxiety (CMS/HCC); LVH (left ventricular hypertrophy); Localized edemaStart: 02-17-2024 End: 57-75-3220Qirjcb Robert Bhatti MD Work Phone: [facility] CI FMStart: 02-17-2024 End: 76-22-8228Vlkpup Robert Bhatti MD Work Phone: [facility] CI FMStart: 02-10-2024 End: 61-06-9416Xxqxz Kae Bhatti MD Work Phone: [facility] CI FMStart: 02-10-2024 End: 86-98-8095uuhjtztsitVQKettering Health [facility] Work Phone: [facility] Work Phone: Start: 02-10-2024 End: 89-74-4473Cpszfmj encounter procedureDO Emigdio Vilalnueva Work Phone: [facility] Physician [facility] Work Phone: Start: 01-06-2024 End: 12-54-1431uypzcydxvmYSNYDVE P HOUSEFacility:[facility] Hospitaltart: 12-17-2023 End: 25-42-7103Xchjnewndr and management of inpatientDO Emigdio Villanueva Work Phone: [facility] [place] [facility] Work Phone: Start: 12-14-2023 End: 33-34-0212zfntsemvbeDonygtdmdLutheran Hospital Work Phone: Start: 12-14-2023 End: 66-59-1053Hbhousv encounter procedureC[facility] Work Phone: Start: 12-07-2023 End: 89-40-8480Kftszwq encounter procedureC[facility] Work Phone: Start: 50-70-2885Yvu-patient / Non-visitDO Emigdio Villanueva Work Phone: [facility] Physician [facility] Work Phone: Start: 11-30-2023 End: 89-13-0951nyyphcouhsQVCULVQ HOUSEFacility:[facility] Hospitaltart: 11-24-2023 End: 32-06-1578Wwtrxmv encounter procedureC[facility] Work Phone: Start: 10-26-2023 End: 57-63-7703yrcrabswrmKrqvcldncLutheran Hospital Work Phone: Start: 10-26-2023 End: 68-16-0629Zogwsve encounter procedureC[facility] Physician [facility] Work Phone: Start: 10-05-2023 End: 85-12-8422rnhrehnbplArkptulriLutheran Hospital Work Phone: Start: 10-05-2023 End: 57-11-7057Tpllabn encounter procedureOn License Of [facility] Work Phone: Start: 08-04-2023 End: 71-64-6421Qmxbglp encounter procedureC[facility] Work Phone: Start: 07-29-2023 End: 73-14-3315ivxbiabxnmFE Emigdio [place]on Work Phone: [facility] Work Phone: Start: 07-29-2023 End: 82-65-2967Xnypxlm encounter procedureDO Emigdio Villanueva Work Phone: [facility] [place] Work Phone: Start: 07-22-2023 End: 55-90-0518ounhtyepoaDDLNEMZ [facility] Hospitaltart: 07-22-2023 End: 11-38-2224Ipuptbulnt hospital visit by Chaya Wesley Echo/Vasc Room 2[facility] CenterComment on above:Murmur, heartStart: 06-19-2023 End: 26-89-8514Lkzqqx outpatient visit 25 minutesFletcher Ziegler MD Work Phone: [facility]alusia HealthComment on above: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 (Pr imary Dx); History of coronary artery bypass graft; History of PTCA; Permanent atrial fibrillation (CMS/HCC); High risk medication use; Murmur, heartStart: 06-19-2023 End: 25-74-4848djxurlqwcyCYHWSRM [facility] AmbulatoryStart: 06-17-2023([facility] R A/c) [facility] Repeat A/Micheal [facility] CenterchesterC[facility] Coordinated Care ClinicStart: 06-17-2023 End: 91-63-4892mfsxlylcnrBZ Emigdio Villanueva Work Phone: [place] [employer] Other Start: 06-17-2023 End: 17-68-6778Mixadkznhi RecurringDO Emigdio House Work Phone: [facility] Work Phone: Start: 05-27-2023([facility] R A/c) [facility] Repeat A/CMcKenna YeniferQuorum Healthmichelle Coordinated Care ClinicStart: 05-27-2023 End: 16-36-2716uwfuoyebacWeJfeeq [place] Other noPhoodeez Other Start: 05-21-2023 End: 18-05-1561iqnpboralkKncz Fitt Other noPhoodeez Other Start: 75-07-6689Lksltpczp encounterDawn [facility] Coordinated Care ClinicStart: 05-11-2023 End: 91-66-7636woayururipGugf Fitt Other noPhoodeez Other Start: 37-41-7815Eoaxmwirz encounterDawn [facility] Coordinated Care ClinicStart: 05-06-2023([facility] R A/c) [facility] Repeat A/CJacjn PeresQuorum Healthmichelle Coordinated Care ClinicStart: 05-06-2023 End: 85-19-3272zonlwxcactThot Fitt Other [employer] Other Start: 28-02-0735Liunogarj encounterDawn [facility] Hospitaliree[facility] Coordinated Care ClinicStart: 04-02-2023 End: 37-41-5924gzbkzmdxtwSxql Fitt Other [employer] Other Start: 71-65-9422Yjwjmsmzg encounterDawn [facility] Hospitalireeastern [facility] hospital Coordinated Care ClinicStart: 03-18-2023 End: 42-38-4994wrjzwnspddFpdr Fitt Other noPhoodeez Other Start: 53-86-6163Wjhinnhfe encounterDawn [facility] Coordinated Care ClinicStart: 03-03-2023([facility] R A/c) [facility] Repeat A/CDawn Fitt [facility] Coordinated Care ClinicStart: 03-03-2023 End: 61-20-7753sehrcmtwbzLcfw Fitt Other noPhoodeez Other Start: 02-04-2023 End: 97-00-3713kadusxgcgrLrkx Fitt Other [employer]Phood[employer]z Other Start: 60-63-1235Ytlrcbwhr encounterDawn [facility] Coordinated Care ClinicStart: 01-21-2023([facility] R A/c) [facility] Repeat A/CMcKenna SannerFirelands Coordinated Care ClinicStart: 01-21-2023 End: 88-39-1337supzbnweocQiIhabs Sanner Other noPhoodeez Other Start: 01-13-2023 End: 18-04-4760sduqpydxniQhfv Fitt Other [employer]Phood[employer]z Other Start: 82-75-0611Doicokuvi encounterDawn [facility] Coordinated Care ClinicStart: 12-16-2022([facility] R A/c) [facility] Repeat A/CMcKenna SannerFirelands Coordinated Care ClinicStart: 12-16-2022 End: 55-46-4786zgpatzqoabEnHpbib Sanner Other [employer]Phood[employer]z Other Start: 10-30-2022 End: 41-04-3711rqlqohatsrZtvu Fitt Other [employer] Other Start: 67-35-5829Vhjyaaeme encounterDawn [facility] Coordinated Care ClinicStart: 10-06-2022 End: 85-90-2432nunjobxyojSX EMIGDIO HOUSEFacility:D1Raxxu: 10-01-2022 End: 95-24-0571mkdugzfhhdUebk Fitt Other noPhoodeez Other Start: 46-99-7780Dvgrtuzem encounterDawn [facility] Coordinated Care ClinicStart: 09-03-2022([facility] R A/c) [facility] Repeat A/CJacqueline GerberFirelands Coordinated Care ClinicStart: 09-03-2022 End: 23-62-8671jijxspuwhhOasnqsglxy Ja Other [employer] Other Start: 08-18-2022([facility] R A/c) [facility] Repeat A/C Rosalia GerberFirelands Coordinated Care ClinicStart: 08-18-2022 End: 06-11-0618pgpgvfjzbkCmdmqxbjhu Ja Other [employer]Phoodeez Other Start: 08-14-2022 End: 55-68-3636yjccrtvspiLcaf Fitt Other [employer]ood[employer] Other Start: 34-66-5381Ddwmztyzf encounterDawn [facility] Coordinated Care ClinicStart: 07-31-2022([facility] R A/c) [facility] Repeat A/CJacqueline GerberFirelands Coordinated Care ClinicStart: 07-31-2022 End: 57-24-7937ezsienyzgaXhkt Fitt Other noPhoodeez Other Start: 83-67-3425Yrvybexmn encounterDawn [facility] Coordinated Care ClinicStart: 07-10-2022([facility] R A/c) [facility] Repeat A/CJacqueline GerberFirelands Coordinated Care ClinicStart: 07-10-2022 End: 15-99-4857hvoqiibuprQuteeyufaq Ja Other noPhoodeez Other Start: 07-07-2022 End: 09-34-4290ngqvmglabiDitu Fitt Other [employer] Other Start: 42-54-8283Uoyevhvcw encounterDawn [facility] Coordinated Care ClinicStart: 06-19-2022 End: 59-73-7931wpdnxhdjscWefl Fitt Other noHeures[employer] [place] [employer] Other Start: 25-91-7882Uohvnxnsd encounterDawn [facility] Coordinated Care ClinicStart: 05-26-2022([facility] R A/c) [facility] Repeat A/CAaron LePoireFireeastern state hospital Coordinated Care ClinicStart: 05-26-2022 End: 60-95-0515gdjcbyhtikMtavk LePoire Other nouniversity health [facility] [place] [employer] Other Start: 04-21-2022([facility] R A/c) [facility] Repeat A/CDawn Fitt [facility] Coordinated Care ClinicStart: 04-21-2022 End: 46-10-3785oveuykipvcBbtw Fitt Other [employer] [place] [employer] Other Start: 91-18-3167gwltkblzmyNuJulia Emigdio [facility] Facility:[id number]: 03-13-2022 End: 35-84-8345dyemegmbzbWbkg Fitt Other [employer]Phood[employer] Other Start: 43-68-7458Hmcedhaqj encounterDawn FittFirelands Coordinated Care ClinicStart: 02-13-2022([facility] R A/c) [facility] Repeat A/CDawn Fitt [facility] ClinicStart: 02-13-2022 End: 59-10-2382nxgqchefpxVfim Fitt Other [employer]Phoodee[employer] Other Start: 01-16-2022([facility] R A/c) [facility] Repeat A/CDawn Fitt [facility] ClinicStart: 01-16-2022 End: 89-28-8562zntjtwlsnwRfah Fitt Other [employer]Phood[employer] Other Start: 12-19-2021([facility] R A/c) [facility] Repeat A/CDawn Fitt [facility] ClinicStart: 12-19-2021 End: 30-33-6304rynrzewzcgSero Fitt Other [employer] [place] [employer] Other Start: 12-18-2021 End: 87-30-2093tfgbtorbwpFvsg Fitt Other [employer] Other Start: 23-87-5416Gjikokrma encounterDawn [facility] ClinicStart: 12-05-2021 End: 19-34-1848qclgrjlgdoOzvm Fitt Other [employer] [place] [employer] Other Start: 75-75-9020Zhitycrzw encounterDawn [facility] ClinicStart: 11-07-2021([facility] R A/c) [facility] Repeat A/CDawn Fitt [facility] ClinicStart: 11-07-2021 End: 21-68-4531vggvzjxhobMgfl Fitt Other [employer] Other Start: 10-24-2021([facility] R A/c) [facility] Repeat A/CDawn Fitt [facility] ClinicStart: 10-24-2021 End: 60-02-9530eabimdlzewZfol Fitt Other [employer] Other Start: 10-03-2021([facility] R A/c) [facility] Repeat A/CDawn Fitt [facility] ClinicStart: 10-03-2021 End: 59-27-7459puypgxfpvpKwgo Fitt Other [employer] Other Start: 09-19-2021([facility] R A/c) [facility] Repeat A/CDawn Fitt [facility] ClinicStart: 09-19-2021 End: 71-54-8446cbzznftnsvAcez Fitt Other [employer] Other Start: 09-05-2021([facility] R A/c) [facility] Repeat A/CDawn Fitt [facility] ClinicStart: 09-05-2021 End: 85-72-0551zuojlcyuumVanl Fitt Other [employer] Other Start: 33-18-3396Ttuxjsksa encounterDawn [facility] ClinicStart: 08-08-2021([facility] R A/c) [facility] Repeat A/CDawn Fitt [facility] ClinicStart: 08-08-2021 End: 11-39-2472cqviuqclugEkry Fitt Other [employer] Other Start: 08-07-2021 End: 90-02-3357siyztnqntkIeia Fitt Other [employer] Other Start: 34-46-9331Nisrkgxqv encounterDawn [facility] ClinicStart: 07-09-2021([facility] R A/c) [facility] Repeat A/CDawn Fitt [facility] ClinicStart: 07-09-2021 End: 82-69-2139qxkngdyvmzUznn Fitt Other [employer] Other Start: 06-11-2021([facility] R A/c) [facility] Repeat A/CDawn Fitt [facility] ClinicStart: 06-11-2021 End: 02-18-8879xwybbronkwXtaz Fitt Other [employer] [place] [employer] Other Start: 05-29-2021 End: 34-23-9118vlfptvbcjbRwhs Fitt Other [employer] [place] [employer] Other Start: 37-35-3171Murvwqofl encounterDawn [facility] ClinicStart: 05-20-2021([facility] R A/c) [facility] Repeat A/CDawn Fitt [facility] ClinicStart: 05-20-2021 End: 82-69-8806sonvjpzzdmUdpv Fitt Other [employer] [place] [employer] Other Start: 43-56-4670ZaTr[facility]ull [facility] P House Work Phone: [phone]-FdgikM[facility] 250 DO Work Phone: Start: 05-06-2021([facility] R A/c) [facility] Repeat A/CDawn Fitt [facility] ClinicStart: 05-06-2021 End: 59-69-6134natumtqwofAluv Fitt Other [employer] Other Start: 04-04-2021([facility] R A/c) [facility] Repeat A/CDawn Fitt [facility] ClinicStart: 70-81-5397Zexwvi outpatient visit 25 minutesCharles P House Work Phone: [phone]-[facility] 250 DO Work Phone: Start: 03-07-2021([facility] R A/c) [facility] Repeat A/CDawn Mehrdadt [facility] Coordinated Care ClinicStart: 40-87-2093Ocxpgda encounterHASSAN IBRAHIMFacility:1532Start: 46-99-9014Ylygyyt encounterHASSAN GAO Facility:1532Start: 70-68-1860Bxxqgft encounterHASSAN IBRAHIMFacility:1532Start: 18-22-9442Bcdbkxb encounterHASSAN IBRAHIMFacility:1532Start: 04-77-0537Pvesqqf encounterHASSAN IBRAHIMFacility:1532 Procedures DateProcedureProcedure DetailPerforming ClinicianStart: 08-10-4662Xohatrumdkz timeKusum Arellano Hemmer PA Work Phone: Start: 03-27-2025 End: 12-14-8889Uiygktk of percutaneous transluminal coronary angioplastyHx of percutaneous transluminal coronary angioplastyKaren Hemmer PA Work Phone: Start: 25-34-8150Gugrqefgctv timeKaren M Hemmer PA Work Phone: Start: 87-61-0447Bcizspwxjtj timeKaren M Hemmer PA Work Phone: Start: 40-98-0906Ligwcgaydix timeKaren M Hemmer PA Work Phone: Start: 20-39-3920Tosguedgpnk timeKaren M Hemmer PA Work Phone: Start: 19-33-7209Lhdvhzxqmhm timeKaren M Hemmer PA Work Phone: Start: 78-40-0919Bardogqsxep timeKaren M Hemmer PA Work Phone: Start: 53-17-7614Uvkmlcjzivu Hermes Bhatti MD Work Phone: Start: 70-89-4791Isoaokwqjhv Hermes Bhatti MD Work Phone: Start: 65-77-5246Q-ray of left knee, four views Josue Leigh DO Work Phone: Start: 59-57-2788BG cervical spine without contrast Josue Leigh DO Work Phone: [phone]: 87-28-9022ZA of head without contrastAlexandsandrita Leigh DO Work Phone: Start: 60-35-7186Pczaq chest X-rayAlexandsandrita Leigh DO Work Phone: Start: 51-95-2010V-ray of left knee, four views Josue Leigh DO Work Phone: Start: 25-79-8780Gisyxinpedm Hermes Bhatti MD Work Phone: Start: 64-77-3473Qzoqamsfiti Hermes Bhatti MD Work Phone: Start: 97-86-3488Mmndiszzztf Hermes Bhatti MD Work Phone: Start: 67-51-9085Akcrjrirqgh Mel XAVIER Work Phone: Start: 96-31-4543Iorluzrxwks Hermes Bhatti MD Work Phone: Start: 86-28-8543PKGEKHBSOJ MICROSCOPIC WITH REFLEX CULTUREKusum XAVIER Work Phone: Start: 90-30-1291Rmgbhidvesr Hermes Bhatti MD Work Phone: Start: 69-78-5954Fybhfwxj blood count with white cell differential, automatedTyson Bhatti MD Work Phone: Start: 04-29-2024 End: 20-63-6496Uujcxtluhsxzw metabolic panelTyson Bhatti MD Work Phone: Start: 03-85-0221Ohvzamhrchx Hermes Bhatti MD Work Phone: Start: 10-01-9488Rtffmifcpwi Hermes Bhatti MD Work Phone: Start: 38-84-6007Utmhazouged Hermes Bhatti MD Work Phone: Start: 72-72-0060Bguunbe ultrasonography of bilateral carotid arteriesDO [facility] Work Phone: Start: 68-37-5626KHO of headDO [facility] Work Phone: Start: 59-25-5722ZX of head without contrastDO [facility] Work Phone: Start: 81-41-3294CCNSTAODKSOEV ECHO (TTE) COMPLETE FLETCHER MCRAEtart: 93-76-0425Ndtfkgg of coronary artery bypass grafting History of coronary artery bypass graftFletcher Ziegler MD Work Phone: Start: 65-54-3734Dnmwvmo of percutaneous transluminal coronary angioplastyHistory of PTCAudrey Ziegler MD Work Phone: Start: 29-53-8304Nobxh 1996 panel - Serum or Plasma Fletcher Ziegler MD Work Phone: Start: 66-93-3874Msbbz colonoscopyCharles P [place] Work Phone: Coronary artery bypass graftCharles P [place] Work Phone: History of coronary artery bypass graftingHistory of coronary artery bypass graftCharles P [place] Work Phone: History of coronary artery bypass graftingHistory of coronary artery bypass graftFletcher Ziegler MD Work Phone: History of coronary artery bypass graftingHistory of coronary artery bypass graftTyson Bhatti MD Work Phone: History of percutaneous transluminal coronary angioplastyHistory of Shante Ziegler MD Work Phone: Leg repairCharles P House Work Phone: Percutaneous transluminal coronary angioplastyCharles P House Work Phone: Plan of Treatment DateCare ActivityDetailAuthorStart: 05-24-2025 End: 03-56-8748Zcexnup encounter owfoxxjgu26/17/2025 1:00 PM EST Office Visit [facility] [place] [facility] [address] [place] [address] Kusum Ferrari PA [address] [place] [address] [facility] [place] Paul MedinceStart: 04-17-2025 End: 32-24-8323Vtbyydf encounter procedureNOMS [place] Paul MedinceComment on above:ArrivedStart: 03-27-2025 End: 84-84-1307Ylazeku encounter procedureNOMS [place] Paul MedinceComment on above:ArrivedStart: 03-20-2025 End: 82-82-1885Ffotzqy encounter zouaupthy17/13/2025 3:30 PM EDT Office Visit BERTHA GRIDER [address] [place] [id number] Kacy Pretty DO [address] [place] [address] BERTHA BELLEVUEStart: 02-23-2025 End: 07-95-7001Zgmqctq encounter procedureNOMS [place] Paul MedinceComment on above:ArrivedStart: 21-62-5713SWXWH-19 Vaccine ( season)COVID-19 Vaccine ( season)[facility] HealthcareStart: 34-54-3914Dxxjkrxys vaccinationNOMS HealthcareStart: 01-26-2025 End: 34-90-6175Kjvuxzy encounter /21/2025 1:30 PM EDT Office Visit [facility] [place] [facility] [address] [place] [id number] Kusum Ferrari PA [address] [place] [address] [facility] [place] Paul MedinceStart: 01-12-2025 End: 99-29-7725Luvatzf encounter procedureNOMS [place] Paul MedinceComment on above:ArrivedStart: 01-05-2025 End: 21-33-2290Qggjlqq encounter procedureNOMS CI FMComment on above:Arrived Start: 12-22-2024 End: 95-03-8606Rielczu encounter procedureNOMS CI FMComment on above:Arrived Start: 12-19-2024 End: 26-15-2119Vczmrep encounter hjhkgumcy45/14/2025 4:00 PM EDT Office Visit [facility] [address] [place] [address] Tyson Bhatti MD [address] [place] [address] ArrivedNOMS CI FMComment on above:ArrivedStart: 12-16-2024 End: 98-02-2009Mdgxxjw encounter kehykosud39/11/2025 9:30 AM EDT Office Visit [facility] [address] [place] [address] Tyson Bhatti MD [address] [place] [address] [facility] CI FMStart: 11-28-2024 End: 93-34-4102Kskncjt encounter mhxmipocm29/23/2025 3:30 PM EDT Office Visit [facility] [address] [place] [address] Tyson Bhatti MD [address] [place] [address] [facility]: 11-10-2024 End: [id number] Knee - left 4 ViewsXR knee 4+ views left Imaging Routine History of fall Pain and swelling of left knee Expected: 11/10/2024 (Approximate), Expires: 11/10/2025[facility] Work Phone: Comment on above:Expected: 11/10/2024 (Approximate), Expires: 11/10/2025Start: 10-10-2024 End: [id number] encounter [email or web address]/05/2025 3:30 PM EDT Office Visit [facility] [address] [facility] [address] [place] [id number] Tyson Bhatti MD [address] [facility] [address] [place], [place] [id number] [facility]: 10-03-2024 End: 05-56-4805Vvtqobj encounter procedureANA BELLEVUEComment on above:Arrived Start: 09-28-2024 End: 88-63-4864Ztxkjfs encounter procedureNOMS MARNI STATE ROUTEStart: 08-29-2024 End: 41-77-3640Eeytffi encounter procedureNOMS CI FMComment on above:Arrived Start: 08-01-2024 End: 17-06-6066Ktfkeli encounter procedureNOMS CI FMComment on above:Arrived Start: 07-04-2024 End: 65-49-4916Slmrurg encounter procedureNOMS CI FMComment on above:Arrived Start: 07-01-2024 End: 93-74-1023Asnewtj encounter procedureNOMS CI FMComment on above:Arrived Start: 06-21-2024 End: 17-59-5754YGJ panel - Blood by Automated countCBC Lab Routine Cerumen debris on tympanic membrane of both ears Weakness Acute non-recurrent pansin usitis Expected: 06/21/2024 (Approximate), Expires: 06/21/2025[facility] Work Phone: Comment on above:Expected: 06/21/2024 (Approximate), Expires: 06/21/2025Start: 06-21-2024 End: 32-61-0015Djmgjzmxhfmnq metabolic 2000 panel - Serum or PlasmaComprehensive metabolic panel Lab Routine Weakness Other fatigue Expected: 06/21/2024 (Approximate), Expires: 06/21/2025N[facility] HealthcareComment on above:Expected: 06/21/2024 (Approximate), Expires: 06/21/2025Start: 06-21-2024 End: 76-03-5859Kjiajff encounter cwptnajde59/14/2025 9:00 AM EST Office Visit [facility] [address] [facility] [address] [place] [address] Ayesha Camp ORDER PROCESSOR [address] [facility] [address] [place] [address] ArrivedNOMS CI FMComment on above:ArrivedStart: 05-27-2024 End: 49-27-5410Zvdnmdw encounter procedureNOMS CI FMComment on above:Arrived Start: 46-87-1241Ipqmr panelLipid PanelMercer County Community HospitalStart: 05-16-2024 End: 72-13-5801Qqawwqw encounter procedureNOMS MARNI STATE ROUTEComment on above:ArrivedStart: 04-29-2024 End: 50-48-5335Pshrjrk encounter procedureNOMS CI FMComment on above:Arrived Start: 03-18-2024 End: 72-98-9943Eyenrxw encounter procedureNOMS CI FMComment on above:Arrived Start: 02-17-2024 End: 59-57-2112Ouqytjt encounter procedureNOMS CI FMComment on above:Arrived Start: 28-51-4413Atudqpjny vaccinationInfluenza Vaccine (#1)[facility] Start: 18-84-3793DbzpzwqbrCrystal Clinic Orthopedic Centertart: 12-18-2023 End: 24-74-4848Rutposb encounter wkjwiwyqa75/12/2024 2:40 PM EDT Office Visit [place] [id number] [facility] [address] [place] [phone] Fletcher Ziegler MD [address] [facility] [address] [place] [address] [facility]: 38-96-8721Nbhkkxsscagwv metabolic 2000 panel - Serum or PlasmaCrystal Clinic Orthopedic Centertart: 12-18-2023 [facility]: 58-43-2093Fbksmvki to neurologist [facility]ertart: 06-73-4579Zcgwtpam admissionCrystal Clinic Orthopedic Centertart: 71-04-7003Ofncztke therapy procedureCrystal Clinic Orthopedic Centertart: 00-12-9921Rhvrjavw to occupational therapist [facility]: 05-82-0018Kdzbkalh to speech and language therapy serviceCrystal Clinic Orthopedic Centertart: 12-17-2023 End: 35-48-7324TslsnrksdCrystal Clinic Orthopedic Centertart: 07-07-2023 End: 47-36-1926Iwcbylg encounter cbubbcxnw98/30/2024 12:30 PM EST Appointment [facility] [address] [facility] [address] [place] [address] [facility]: 06-19[facility]2023 End: 72-19-0525ZY Heart TransthoracicTransthoracic Echo (TTE) Complete Echocardiography Routine Murmur, heart Expected: 06/19/2023 (Approximate), Expires: 06/19/2025[facility] Service Area Work Phone: Comment on above:Expected: 06/19/2023 (Approximate), Expires: 06/19/2025Start: 23-38-0140Dbqkniodi vaccinationInfluenza Vaccine (#1) [facility]: 37-98-8440WNN, Provider: Fletcher Ziegler, Status: Pen, Time: 1:10 PMFUV, Provider: Fletcher Ziegler, Status: Pen, Time: 1:10 [place]MS[address] [address] DO Work Phone: Start: 20-26-1326Vztwjg Vaccines (1 of 2)Zoster Vaccines (1 of 2)[facility]: 40-39-3391PPvR/Tdap/Td Vaccines (1 - Tdap)DTaP/Tdap/Td Vaccines (1 - Tdap)[facility]: 64-03-0250Yrrnuwikpplk Vaccine: 65+ Years (1 of 2 - PCV) Pneumococcal Vaccine: 65+ Years (1 of 2 - PCV)[facility] CenterStart: 1948 Pneumococcal Vaccine: 65+ Years (1 - PCV)Pneumococcal Vaccine: 65+ Years (1 - PCV)[facility]: 48-81-3552Mfwdesobgeon Vaccine: 65+ Years (1 of 2 - PCV)Pneumococcal Vaccine: 65+ Years (1 of 2 - PCV)[facility]: 99-44-4810ICQZD-19 Vaccine (#1)COVID-19 Vaccine (#1)[facility]: 04-21-1941Medicare Annual Wellness (AWV)Medicare Annual Wellness (AWV)[facility] CenterStart: 04-21-1943Medicare Annual Wellness VisitMedicare Annual Wellness Visit (AWV)[facility] HospitalLead [Presence] in [facility] HospitalPatient EducationHead injury in adults Preventing falls - ED discharge instructionsChillicothe Va [facility] Ctr Work Phone: Patient referralChillicothe Va Medical Center Ctr Work Phone: End: 84-99-9985ZP Heart TransthoracicGALLUP INDIAN MEDICAL [facility]ENTER Service Area Work Phone: Comment on above:Once for 1 Occurrences starting 07/22/2023 until 07/22/2023 Immunizations Immunization DateImmunizationNotesCare XiumyzdfFqijdhnz18-03-6378onncjaz toxoid, reduced diphtheria toxoid, and acellular pertussis vaccine, adsorbedAlexander Keister DO Work Phone: [facility] Payers DatePayer CategoryPayerPolicy [id number]-jwi [id number] 2016Medicare [id number] 2016Medicare (Managed Care)[employer] Member Subscriber Plan / Payer (Effective 2015-Present) Name: Emigdio Jeong Relation to Subscriber: Self Name: Emigdio Jeong Payer ID: Not on file Group ID: [id number] Type: Not on file Address: [facility] [address] [place] [id number] 2016Medicare [id number] 2.16840.1.774747.3.57[id number] 2.16840.1.344440.3.57[id number] 2.16840.1.582514.3.57[id number] 2.16840.1.440646.3.57[id number] 2.16840.1.840698.3.57[id number] 2.16840.1.149429.3.57[id number] 2.16840.1.081617.3.579.[id number] 2.16840.1.385268.3.579.[id number] 2.16840.1.489986.3.57[id number] 2.16840.1.830767.3.579.2.[id number] 2.16840.1.963627.3.57[id number] 2.16840.1.307026.3.57[id number] 2.16.840.1.756594.3.57[id number] 2.16.840.1.946738.3.57[id number] 2.16.840.1.910741.3.579.[id number] 2.16.840.1.587330.3.579.[id number] 2.16.840.1.258513.3.579.[id number] 2.16840.1.007204.3.57[id number] 2.16.840.1.451794.3.579.2.372415-83-8602Fbucafb2713557 2.16840.1.962864.3.579.2.571545-60-5322Qqpzwxm3645497 2.16840.1.648936.3.579.2.[id number] 2.16840.1.876681.3.579.2.178333-50-1346Fmgbpbs2965148 2.16840.1.807845.3.579.2.260497-38-2354Xtokfkf1921999 2.16.840.1.734259.3.579.2.[id number] 2.16.840.1.176432.3.579.2.[id number] 2.16840.1.917692.3.579.2.1259UnknownANTHEMUnknownAnthem /[id number] b74t5j88-l2w4-6060-r153-31834976pf64RcqzpgyFrtcstfa Douijopfdyqkmu079-55-6580 231ap179-f724-947a-[id number] 2.16.840.1.1222[id number] 2.16.840.1.095683.3.579.2.531 Social History DateTypeDetailFacilityStart: 06-19-2023 End: 58-42-3647Ca illicit drug useNo illicit drug useMP-[facility] [address] DO Work Phone: Comment on above:Quit 1984;Start: 06-19-2023 End: 12-49-1268Hkj Assigned At [facility] [employer] Other Start: 06-19-2023 End: 24-29-7371Zcofydv smoking status NHISEx-smokerUnAshtabula County Medical CenterHistory of tobacco useCurrent smokerUnAshtabula County Medical Center Work Phone: History of tobacco useCigarette SmokerUnAshtabula County Medical Center Work Phone: Start: 06-19-2023 End: 42-75-2085Vfxzlms use and exposureSmokeless tobacco non-userUnAshtabula County Medical Center Work Phone: Start: 00-26-3371Nccntml intakeLifetime non-drinker (finding)[facility] Work Phone: Start: 14-23-4600Iqd Assigned At BirthNot on file [facility] Work Phone: Start: 06-09-2023 End: 36-96-4509Gllknvnw to SARS-CoV-2 (event)Not sureUnAshtabula County Medical CenterStart: 07-13-2018 End: 85-21-6701Kcmvyqo smoking status NHISNever smoked tobacco (finding) [facility]: 98-53-9920Qcu Assigned At BirthMale [facility] Centertart: 06-21-2024 End: 42-28-9602Ryadqmufl beverage intakeDeferNOMS HealthcareStart: 11-02-2024 End: 99-01-8437AuvBbsm (finding)[facility] Centertart: 88-98-9597QocRqayLPJH Healthcare Goals DatePatient GoalDesired Activity/State Functional Status LxxrLsptztiqmlPgajpbJdiubhno85-15-2920Lflmnez Health Questionnaire 2 item (PHQ- 2) [Reported][facility] Vwwdduypwy13-04-6420Tsyotmi Health Questionnaire 2 item (PHQ- 2) [Reported][facility] Ttmdecgsfl86-30-2639Delvkhu Health Questionnaire 2 item (PHQ- 2) [Reported][facility] Iptppffqyo98-38-1398Lgsfepp Health Questionnaire 2 item (PHQ- 2) [Reported][facility] Yxmujipqto11-78-9733Yltvsud Health Questionnaire 2 item (PHQ- 2) [Reported][facility] Vgtlrmmpqo52-87-6404Ohopdwa Health Questionnaire 2 item (PHQ- 2) [Reported][facility] Locznmvucw63-45-0467Hsdhusx Health Questionnaire 2 item (PHQ- 2) [Reported][facility] Kfsmjopqim68-42-1213Pphyfzv Health Questionnaire 2 item (PHQ- 2) [Reported][facility] Yxvguikhbo67-38-8215Przdius Health Questionnaire 2 item (PHQ- 2) [Reported][facility] CenterHwcrzthanc32-03-4337Nfglrszbnr statusPatient at Baseline [facility] Work Phone: [phone]ijo statusPatient at Baseline [facility] Work Phone: Mental Status DautTnoydwrtyzWgqfhxTsrwxsdn02-32-3348Kpowiiqyo functionCognitive Status Patient is Progressing Toward BaselineGalion Community Hospital Work Phone: [phone] 650-767707971490-73-1676Mqlvodnup functionCognitive Status Patient Not at BaselineGalion Community Hospital Work Phone: Clinical Notes 06-08-2018 to 04-17-2025 Note Date & MiseWrcwNzvpvdww18-45-7628 History of Present illness Narrative* Kusum Ferrari, MORENITA - 04/17/2025 1:00 PM EST Images from the original note were not included. Subjective Patient ID: Emigdio Jeong is a 84 y.o. male who presents for INR. Emigdio is present today with his son for INR. His last INR on 03/27/25 was 2.8. He is currently taking 6 mg coumadin Thursday and 4 mg rest of week. INR today 2.7. Over the past 2 weeks, how often have you been bothered by any of the following problems? Little interest or pleasure in doing things: Not at all Feeling down, depressed, or hopeless: Not at all Patient Health Questionnaire-2 Score: 0 Current Outpatient Medications on File Prior to Visit Medication Sig Dispense Refill aspirin 81 MG EC tablet Take 81 mg by mouth Daily atorvastatin (Lipitor) 20 MG tablet Take 20 mg by mouth in the morning. cyanocobalamin (Vitamin B-12) 1000 MCG tablet Take 1,000 mcg by mouth Daily (Patient not taking: Reported on 03/27/2025) latanoprost (Xalatan) 0.005 % ophthalmic solution Administer 1 drop into both eyes at bedtime 2.5 mL 5 LORazepam (Ativan) 0.5 MG tablet Take by mouth every 12 (twelve) hours if needed for anxiety losartan-hydroCHLOROthiazide (Hyzaar) 50-12.5 MG tablet Take 1 tablet by mouth Daily 90 tablet 3 Omeprazole 20 MG tablet delayed-release Take 20 mg by mouth Daily traZODone (Desyrel) 50 MG tablet Take 1 tablet (50 mg) by mouth at bedtime 30 tablet 11 warfarin (Coumadin) 4 MG tablet Take 1 tablet (4 mg) by mouth See administration instructions 4 mg daily, except for Thursday. Dose changes frequently. warfarin (Coumadin) 6 MG tablet Take 1 tablet (6 mg) by mouth See administration instructions Take 3 mg on Saturdays. Dosing changes frequently. No current facility-administered medications on file prior to visit. I have reviewed and reconciled the history and medication list with the patient today. No Known Allergies Social History Tobacco Use Smoking status: Former Types: Cigarettes Smokeless tobacco: Never Vaping Use Vaping status: Never Used Substance Use Topics Alcohol use: Defer Drug use: Defer No family history on file. Past Medical History: Diagnosis Date A-fib (HCC) Acute encephalopathy 02/29/2024 Closed head injury 03/27/2025 Contusion of left knee 01/05/2025 Contusion of lower leg 01/05/2025 Fall 03/27/2025 Glaucoma History of ischemic stroke 03/27/2025 Hx of percutaneous transluminal coronary angioplasty 03/27/2025 Hypercholesteremia Hypertension Hypertensive urgency 02/29/2024 Metabolic encephalopathy 01/05/2025 Upper GI bleed 03/27/2025 Past Surgical History: Procedure Laterality Date CATARACT EXTRACTION Bilateral NCEA GLAUCOMA SURGERY Bilateral 2021 SLT - OU Visit Vitals BP 118/84 Pulse 72 Resp 16 Ht 6' Wt 237 lb 3.2 oz SpO2 96% BMI 32.17 kg/m Smoking Status Former BSA 2.34 m Review of Systems Constitutional: Negative for chills, fatigue and fever. Respiratory: Negative for cough, shortness of breath and wheezing. Cardiovascular: Negative for chest pain, palpitations and leg swelling. Gastrointestinal: Negative for abdominal pain, blood in stool, constipation, diarrhea, nausea and vomiting. Genitourinary: Negative for hematuria. Skin: Negative for rash. Objective Physical Exam [...] sounds. No wheezing, rhonchi or rales. Musculoskeletal: General: No swelling. Skin: General: Skin is warm and dry. Neurological: General: No focal deficit present. Mental Status: He is alert and oriented to person, place, and time. Psychiatric: Mood and Affect: Mood normal. Behavior: Behavior normal. Office Visit on 04/17/2025 Component Date Value Ref Range Status RESULTS 04/17/2025 2.7 Final Assessment/Plan Diagnoses and all orders for this visit: Anticoagulant long-term use The patient has been compliant with Coumadin therapy and INR is currently within therapeutic range.Denies any abnormal bleeding. Return to clinic in 4 weeks for INR recheck. Paroxysmal atrial fibrillation (HCC) - POCT Protime-INR, fingerstick docked device Continue current dosing, 6 mg on Thursday, 4 mg daily the rest of the week. Chronic diastolic (congestive) heart failure (HCC) ECHO from 07/2023 showed, estimated ejection fraction of 60-65%. There are no regional wall motion abnormalities. The left ventricular cavity size is normal. Spectral Doppler shows an impaired relaxation pattern of left ventricular diastolic filling. No current active congestive heart failure. Dyspnea at exertion, but not at rest. No evidence of pulmonary edema. Medications unchanged. Follow up with MORENITA Donohue in 1 month (on 05/17/2025 INR). documented in this encounterSaint [facility] Health Science CenterCpczoooicl96-45-9725 History of Present illness Narrative* MORENITA Thornton - 03/27/2025 1:00 PM EDT Images from the original note were not included. Subjective Patient ID: Emigdio Jeong is a 84 y.o. male who presents for INR. Emigdio is present today for INR check. Last INR was on 02/23/25 and was 1.9. Current Coumadin dosing is 4 mg daily except for 6 mg on Thursday. Today INR 2.8. Over the past 2 weeks, how often have you been bothered by any of the following problems? Little interest or pleasure in doing things: Not at all Feeling down, depressed, or hopeless: Not at all Patient Health Questionnaire-2 Score: 0 Current Outpatient Medications on File Prior to Visit Medication Sig Dispense Refill aspirin 81 MG EC tablet Take 81 mg by mouth Daily LORazepam (Ativan) 0.5 MG tablet Take by mouth every 12 (twelve) hours if needed for anxiety atorvastatin (Lipitor) 20 MG tablet Take 20 mg by mouth in the morning. cyanocobalamin (Vitamin B-12) 1000 MCG tablet Take 1,000 mcg by mouth Daily (Patient not taking: Reported on 03/27/2025) latanoprost (Xalatan) 0.005 % ophthalmic solution Administer 1 drop into both eyes at bedtime 2.5 mL 5 losartan-hydroCHLOROthiazide (Hyzaar) 50-12.5 MG tablet Take 1 tablet by mouth Daily 90 tablet 3 Omeprazole 20 MG tablet delayed-release Take 20 mg by mouth Daily traZODone (Desyrel) 50 MG tablet Take 1 tablet (50 mg) by mouth at bedtime 30 tablet 11 warfarin (Coumadin) 4 MG tablet Take 1 tablet (4 mg) by mouth See administration instructions 4 mg daily, except for Thursday. Dose changes frequently. warfarin (Coumadin) 6 MG tablet Take 1 tablet (6 mg) by mouth See administration instructions Take 3 mg on Saturdays. Dosing changes frequently. No current facility-administered medications on file prior to visit. I have reviewed and reconciled the history and medication list with the patient today. No Known Allergies Social History Tobacco Use Smoking status: Former Types: Cigarettes Smokeless tobacco: Never Vaping Use Vaping status: Never Used Substance Use Topics Alcohol use: Defer Drug use: Defer No family history on file. Past Medical History: Diagnosis Date A-fib (HCC) Acute encephalopathy 02/29/2024 Closed head injury 03/27/2025 Contusion of left knee 01/05/2025 Contusion of lower leg 01/05/2025 Fall 03/27/2025 Glaucoma History of ischemic stroke 03/27/2025 Hx of percutaneous transluminal coronary angioplasty 03/27/2025 Hypercholesteremia Hypertension Hypertensive urgency 02/29/2024 Metabolic encephalopathy 01/05/2025 Upper GI bleed 03/27/2025 Past Surgical History: Procedure Laterality Date CATARACT EXTRACTION Bilateral NCEA GLAUCOMA SURGERY Bilateral 2021 SLT - OU Visit Vitals BP 116/78 Pulse 58 Resp 16 Ht 6' Wt 238 lb SpO2 99% BMI 32.28 kg/m Smoking Status Former BSA 2.34 m Review of Systems Constitutional: Negative for chills, fatigue and fever. Respiratory: Negative for cough, shortness of breath and wheezing. Cardiovascular: Negative for chest pain, palpitations and leg swelling. Gastrointestinal: Negative for abdominal pain, constipation, diarrhea, nausea and vomiting. Skin: Negative [...] sounds. No wheezing, rhonchi or rales. Musculoskeletal: General: No swelling. Skin: General: Skin is warm and dry. Neurological: General: No focal deficit present. Mental Status: He is alert and oriented to person, place, and time. Psychiatric: Mood and Affect: Mood normal. Behavior: Behavior normal. Office Visit on 03/27/2025 Component Date Value Ref Range Status RESULTS 03/27/2025 2.8 Final Assessment/Plan Diagnoses and all orders for this visit: Paroxysmal atrial fibrillation (HCC) - POCT Protime-INR, fingerstick docked device Will have patient continue current Coumadin dosing, 4 mg daily except for 6 mg on Saturdays. Paperwork completed for patient's facility. Anticoagulant long-term use The patient has been compliant with Coumadin therapy and INR is currently within therapeutic range.Denies any abnormal bleeding. Return to clinic in 4 weeks for INR recheck. Primary hypertension Patient's blood pressure is currently well controlled. Continue with current medications and I willcontinue to monitor. Goal BP remains less than 130/80. Follow up with MORENITA Donohue or their team in 30 days (on 04/26/2025 INR). documented in this encounterSaint Louis University Health Science CenterFsrokszjts28-88-2763 History of Present illness Narrative* MORENITA Thornton - 02/23/2025 1:00 PM EDT Images from the original note were not included. Subjective Patient ID: Emigdio Jeong is a 84 y.o. male who presents for INR. Emigdio is present today for follow up INR. Last INR on 01/26 was 2.7. He is currently taking 4 mg coumadin daily. Today INR 1.9. Over the past 2 weeks, how often have you been bothered by any of the following problems? Little interest or pleasure in doing things: Not at all Feeling down, depressed, or hopeless: Not at all Patient Health Questionnaire-2 Score: 0 Current Outpatient Medications on File Prior to Visit Medication Sig Dispense Refill atorvastatin (Lipitor) 20 MG tablet Take 20 mg by mouth in the morning. cyanocobalamin (Vitamin B-12) 1000 MCG tablet Take 1,000 mcg by mouth Daily latanoprost (Xalatan) 0.005 % ophthalmic solution Administer 1 drop into both eyes at bedtime 2.5 mL 5 losartan-hydroCHLOROthiazide (Hyzaar) 50-12.5 MG tablet Take 1 tablet by mouth Daily 90 tablet 3 Omeprazole 20 MG tablet delayed-release Take 20 mg by mouth Daily traZODone (Desyrel) 50 MG tablet Take 1 tablet (50 mg) by mouth at bedtime 30 tablet 11 [DISCONTINUED] latanoprost (Xalatan) 0.005 % ophthalmic solution Administer 1 drop into both eyes at bedtime [DISCONTINUED] warfarin (Coumadin) 4 MG tablet Take 1 tablet (4 mg) by mouth See administration instructions 4 mg daily, except for Thursday. Dose changes frequently. [DISCONTINUED] warfarin (Coumadin) 6 MG tablet Take 6 mg by mouth See administration instructions Take 3 mg on Saturdays. Dosing changes frequently. No current facility-administered medications on file prior to visit. I have reviewed and reconciled the history and medication list with the patient today. No Known Allergies Social History Tobacco Use Smoking status: Former Types: Cigarettes Smokeless tobacco: Never Vaping Use Vaping status: Never Used Substance Use Topics Alcohol use: Defer Drug use: Defer No family history on file. Past Medical History: Diagnosis Date A-fib (HCC) Acute encephalopathy 02/29/2024 Contusion of left knee 01/05/2025 Contusion of lower leg 01/05/2025 Glaucoma Hypercholesteremia Hypertension Hypertensive urgency 02/29/2024 Metabolic encephalopathy 01/05/2025 Past Surgical History: Procedure Laterality Date CATARACT EXTRACTION Bilateral NCEA GLAUCOMA SURGERY Bilateral 2021 SLT - OU Visit Vitals BP 102/76 Pulse 66 Resp 16 Ht 6' Wt 233 lb 9.6 oz SpO2 96% BMI 31.68 kg/m Smoking Status Former BSA 2.32 m Review of Systems Constitutional: Negative for chills, fatigue and fever. HENT: Negative for nosebleeds. Respiratory: Negative for cough, shortness of breath and wheezing. Cardiovascular: Negative for chest pain, palpitations and leg swelling. Gastrointestinal: Negative for abdominal pain, blood in stool, constipation, diarrhea, nausea and vomiting. Genitourinary: Negative for hematuria. Skin: Negative for rash. Objective Physical Exam [...] breath sounds. No wheezing, rhonchi or rales. Skin: General: Skin is warm and dry. Neurological: General: No focal deficit present. Mental Status: He is alert and oriented to person, place, and time. Psychiatric: Mood and Affect: Mood normal. Behavior: Behavior normal. Office Visit on 02/23/2025 Component Date Value Ref Range Status RESULTS 02/23/2025 1.9 Final Assessment/Plan Diagnoses and all orders for this visit: Paroxysmal atrial fibrillation (HCC) - POCT Protime-INR, fingerstick docked device - warfarin (Coumadin) 4 MG tablet; Take 1 tablet (4 mg) by mouth See administration instructions 4 mg daily, except for Thursday. Dose changes frequently. - warfarin (Coumadin) 6 MG tablet; Take 1 tablet (6 mg) by mouth See administration instructions Take 3 mg on Saturdays. Dosing changes frequently. No current s/e from Coumadin. Will increase pt's Thursday dosage back to 6 mg. New dosing: Coumadin 4 mg daily except for 6 mg onS. Paperwork completed for patient's facility. Anticoagulant long-term use INR was mildly below therapeutic range at 1.9. Goal remains 2.0-3.0. Will recheck in 4 weeks or sooner should there be concerns. Follow up in about 4 weeks (around 03/23/2025) for INR. documented in this encounterSaint Louis University Health Science CenterCmdfiurcvq05-83-9256 Telephone encounter Note* Telephone Encounter - MORENITA Thornton - 02/20/2025 11:32 AM EDT Eye drops sent in for pt [facility] CenterLchorsxeeb69-08-5731 Miscellaneous Notes* Telephone Encounter - MORENITA Thornton - 02/20/2025 11:32 AM EDT Eye drops sent in for pt documented in this encounterSaint Louis University Health Science [id number] History of Present illness Narrative* MORENITA Thornton - 01/26/2025 1:30 PM EDT Images from the original note were not included. Subjective Patient ID: Emigdio Jeong is a 84 y.o. male who presents for INR. Emigdio is present today for follow up INR. Last INR was 1.8 on 01/12/25. Currently taking 4 mg coumadin daily. Today INR 2.7. Over the past 2 weeks, how often have you been bothered by any of the following problems? Little interest or pleasure in doing things: Not at all Feeling down, depressed, or hopeless: Not at all Patient Health Questionnaire-2 Score: 0 Current Outpatient Medications on File Prior to Visit Medication Sig Dispense Refill atorvastatin (Lipitor) 20 MG tablet Take 20 mg by mouth in the morning. cyanocobalamin (Vitamin B-12) 1000 MCG tablet Take 1,000 mcg by mouth Daily latanoprost (Xalatan) 0.005 % ophthalmic solution Administer 1 drop into both eyes at bedtime losartan-hydroCHLOROthiazide (Hyzaar) 50-12.5 MG tablet Take 1 tablet by mouth Daily 90 tablet 3 Omeprazole 20 MG tablet delayed-release Take 20 mg by mouth Daily traZODone (Desyrel) 50 MG tablet Take 1 tablet (50 mg) by mouth at bedtime 30 tablet 11 warfarin (Coumadin) 4 MG tablet Take 1 tablet (4 mg) by mouth See administration instructions 4 mg daily, except for Thursday. Dose changes frequently. warfarin (Coumadin) 6 MG tablet Take 6 mg by mouth See administration instructions Take 3 mg on Saturdays. Dosing changes frequently. No current facility-administered medications on file prior to visit. I have reviewed and reconciled the history and medication list with the patient today. No Known Allergies Social History Tobacco Use Smoking status: Former Types: Cigarettes Smokeless tobacco: Never Vaping Use Vaping status: Never Used Substance Use Topics Alcohol use: Defer Drug use: Defer No family history on file. Past Medical History: Diagnosis Date A-fib (HCC) Acute encephalopathy 02/29/2024 Contusion of left knee 01/05/2025 Contusion of lower leg 01/05/2025 Glaucoma Hypercholesteremia Hypertension Hypertensive urgency 02/29/2024 Metabolic encephalopathy 01/05/2025 Past Surgical History: Procedure Laterality Date CATARACT EXTRACTION Bilateral NCEA GLAUCOMA SURGERY Bilateral 2021 SLT - OU Visit Vitals BP 118/84 Pulse 88 Resp 16 Ht 6' Wt 228 lb 3.2 oz SpO2 99% BMI 30.95 kg/m Smoking Status Former BSA 2.3 m Review of Systems Constitutional: Negative for chills, fatigue and fever. HENT: Negative for nosebleeds. Respiratory: Negative for cough, shortness of breath and wheezing. Cardiovascular: Negative for chest pain, palpitations and leg swelling. Gastrointestinal: Negative for abdominal pain, blood in stool, constipation, diarrhea, nausea and vomiting. Genitourinary: Negative for hematuria. Skin: Negative for rash. Objective Physical Exam [...] and Affect: Mood normal. Behavior: Behavior normal. Office Visit on 01/26/2025 Component Date Value Ref Range Status RESULTS 01/26/2025 2.7 Final Assessment/Plan Diagnoses and all orders for this visit: Anticoagulant long-term use The patient has been compliant with Coumadin therapy and INR is currently within therapeutic range.Denies any abnormal bleeding. Return to clinic in 4 weeks for INR recheck. Paroxysmal atrial fibrillation (HCC) - POCT Protime-INR, fingerstick docked device Advised pt that his INR is 2.7 today. Continue current Coumadin dosing. Follow up in about 4 weeks (around 02/23/2025) for INR. documented in this encounterSaint Louis University Health Science [id number] History of Present illness Narrative* MORENITA Thornton - 01/12/2025 1:00 PM EDT Images from the original note were not included. Subjective Patient ID: Emigdio Jeong is a 84 y.o. male who presents for INR. Emigdio is present today for follow up INR. Last INR was 01/05/25 at 4.1. He was advised to hold coumadin x1 day then resume 3 mg Sat and 4 mg rest of week. Today INR 1.8. Over the past 2 weeks, how often have you been bothered by any of the following problems? Little interest or pleasure in doing things: Not at all Feeling down, depressed, or hopeless: Not at all Patient Health Questionnaire-2 Score: 0 Current Outpatient Medications on File Prior to Visit Medication Sig Dispense Refill atorvastatin (Lipitor) 20 MG tablet Take 20 mg by mouth in the morning. cyanocobalamin (Vitamin B-12) 1000 MCG tablet Take 1,000 mcg by mouth Daily latanoprost (Xalatan) 0.005 % ophthalmic solution Administer 1 drop into both eyes at bedtime losartan-hydroCHLOROthiazide (Hyzaar) 50-12.5 MG tablet Take 1 tablet by mouth Daily 90 tablet 3 Omeprazole 20 MG tablet delayed-release Take 20 mg by mouth Daily traZODone (Desyrel) 50 MG tablet Take 1 tablet (50 mg) by mouth at bedtime 30 tablet 11 warfarin (Coumadin) 4 MG tablet Take 1 tablet (4 mg) by mouth See administration instructions 4 mg daily, except for Thursday. Dose changes frequently. warfarin (Coumadin) 6 MG tablet Take 6 mg by mouth See administration instructions Take 3 mg on Saturdays. Dosing changes frequently. No current facility-administered medications on file prior to visit. I have reviewed and reconciled the history and medication list with the patient today. No Known Allergies Social History Tobacco Use Smoking status: Former Types: Cigarettes Smokeless tobacco: Never Vaping Use Vaping status: Never Used Substance Use Topics Alcohol use: Defer Drug use: Defer No family history on file. Past Medical History: Diagnosis Date A-fib (HCC) Acute encephalopathy 02/29/2024 Contusion of left knee 01/05/2025 Contusion of lower leg 01/05/2025 Glaucoma Hypercholesteremia Hypertension Hypertensive urgency 02/29/2024 Metabolic encephalopathy 01/05/2025 Past Surgical History: Procedure Laterality Date CATARACT EXTRACTION Bilateral NCEA GLAUCOMA SURGERY Bilateral 2021 SLT - OU Visit Vitals BP 104/76 Pulse 76 Resp 16 Ht 6' Wt 230 lb 6.4 oz SpO2 96% BMI 31.25 kg/m Smoking Status Former BSA 2.31 m Review of Systems Constitutional: Negative for chills, fatigue and fever. HENT: Negative for nosebleeds. Respiratory: Negative for cough, shortness of breath and wheezing. Cardiovascular: Negative for chest pain, palpitations and leg swelling. Gastrointestinal: Negative for abdominal pain, blood in stool, constipation, diarrhea, nausea and vomiting. Genitourinary: Negative for hematuria. Skin: Negative for rash. Objective Physical Exam [...] and Affect: Mood normal. Behavior: Behavior normal. Office Visit on 01/12/2025 Component Date Value Ref Range Status RESULTS 01/12/2025 1.8 Final Assessment/Plan Diagnoses and all orders for this visit: Paroxysmal atrial fibrillation (HCC) - POCT Protime-INR, fingerstick docked device INR was mildly subtherapeutic today at 1.8. Goal remains 2.0-3.0. Anticoagulant long-term use Increase Coumadin to 4 mg daily. Paperwork for facility completed and signed, copy made for pt's EHR. Will recheck INR in two weeks. Follow up in about 2 weeks (around 01/26/2025) for INR. documented in this encounterSaint Louis University Health Science [id number] History of Present illness Narrative* MORENITA Thornton - 01/05/2025 1:30 PM EDT Images from the original note were not included. Subjective Patient ID: Emigdio Jeong is a 84 y.o. male who presents for INR. Emigdio is present today for follow up INR. Last INR was 2.5 on 12/22/24. He is currently taking 6 mg coumadin Thursday and 4 mg rest of the week. Today INR was 4.1 Over the past 2 weeks, how often have you been bothered by any of the following problems? Little interest or pleasure in doing things: Not at all Feeling down, depressed, or hopeless: Not at all Patient Health Questionnaire-2 Score: 0 Current Outpatient Medications on File Prior to Visit Medication Sig Dispense Refill latanoprost (Xalatan) 0.005 % ophthalmic solution Administer 1 drop into both eyes at bedtime atorvastatin (Lipitor) 20 MG tablet Take 20 [...] Take 1 tablet (4 mg) by mouth See administration instructions 4 mg daily, except for Thursday. Dose changes frequently. warfarin (Coumadin) 6 MG tablet Take 6 mg by mouth See administration instructions Take 3 mg on Saturdays. Dosing changes frequently. No current facility-administered medications on file prior to visit. I have reviewed and reconciled the history and medication list with the patient today. No Known Allergies Social History Tobacco Use Smoking status: Former Types: Cigarettes Smokeless tobacco: Never Vaping Use Vaping status: Never Used Substance Use Topics Alcohol use: Defer Drug use: Defer No family history on file. Past Medical History: Diagnosis Date A-fib (HCC) Acute encephalopathy 02/29/2024 Contusion of left knee 01/05/2025 Contusion of lower leg 01/05/2025 Glaucoma Hypercholesteremia Hypertension Hypertensive urgency 02/29/2024 Metabolic encephalopathy 01/05/2025 Past Surgical History: Procedure Laterality Date CATARACT EXTRACTION Bilateral NCEA GLAUCOMA SURGERY Bilateral 2021 SLT - OU Visit Vitals BP 132/84 Pulse 60 Resp 16 Ht 6' Wt 227 lb 9.6 oz SpO2 97% BMI 30.87 kg/m Smoking Status Former BSA 2.29 m Review of Systems Constitutional: Negative for chills, fatigue and fever. HENT: Negative for nosebleeds. Respiratory: Negative for cough, shortness of breath and wheezing. Cardiovascular: Negative for chest pain, palpitations and leg swelling. Gastrointestinal: Negative for abdominal pain, blood in stool, constipation, diarrhea, nausea and vomiting. Genitourinary: Negative for hematuria. Skin: Negative for rash. Objective Physical Exam [...] sounds. No wheezing, rhonchi or rales. Musculoskeletal: General: No swelling. Right lower leg: Edema present. Left lower leg: Edema present. Skin: General: Skin is warm and dry. Neurological: General: No focal deficit present. Mental Status: He is alert and oriented to person, place, and time. Psychiatric: Mood and Affect: Mood normal. Behavior: Behavior normal. Office Visit on 01/05/2025 Component Date Value Ref Range Status RESULTS 01/05/2025 4.1 Final Assessment/Plan Diagnoses and all orders for this visit: Anticoagulant long-term use The patient has been compliant with Coumadin therapy and INR is currently above therapeutic range at 4.1. Denies any abnormal bleeding. Return to clinic in 7-10 days for INR recheck. Paroxysmal atrial fibrillation (HCC) - POCT Protime-INR, fingerstick docked device Hold Coumadin x 1 day, restart at lower dosage. Will have him take 3 mg on Thursday and 4 mg the rest of the week. Follow up for INR in 7-10 days. documented in this encounterSaint Louis University Health Science [id number] History of Present illness Narrative* MORENITA Thornton - 12/22/2024 2:00 PM EDT Images from the original note were not included. HPI INR VISIT Additional comments: Pt has held coumadin since last visit as directed INR 12/19/24 8.0 Last edited by Fannie Ackerman LPN on 12/22/2024 1:44 PM. Subjective Patient ID: Emigdio Jeong is a 84 y.o. male who presents for INR VISIT (Pt has held coumadin since last visit as directed/INR 12/19/24 8.0). Taking coumadin as directed --holding coumadin right now Denies any abnormal bleeding Her for INR Pt is in assisted living Current Outpatient Medications on File Prior to [...] Smokeless tobacco: Never Vaping Use Vaping status: Never Used Substance Use Topics Alcohol use: Defer Drug use: Defer No family history on file. Past Medical History: Diagnosis Date A-fib (HCC) Glaucoma Hypercholesteremia Hypertension Past Surgical History: Procedure Laterality Date CATARACT EXTRACTION Bilateral NCEA GLAUCOMA SURGERY Bilateral 2021 SLT - OU Visit Vitals BP 124/78 Pulse 63 Ht 6' Wt 224 lb SpO2 95% BMI 30.38 kg/m Smoking Status Former BSA 2.28 m Review of Systems Constitutional: Negative for chills, fatigue and fever. HENT: Negative for nosebleeds. Respiratory: Negative for cough, shortness of breath and wheezing. Cardiovascular: Negative for chest pain, palpitations and leg swelling. Gastrointestinal: Negative for abdominal pain, blood in stool, constipation, diarrhea, nausea and vomiting. Genitourinary: Negative for hematuria. Skin: Negative for rash. Objective Physical Exam [...] sounds. No wheezing, rhonchi or rales. Musculoskeletal: General: No swelling. Right lower leg: Edema present. Left lower leg: Edema present. Skin: General: Skin is warm and dry. Neurological: General: No focal deficit present. Mental Status: He is alert and oriented to person, place, and time. Psychiatric: Mood and Affect: Mood normal. Behavior: Behavior normal. Office Visit on 12/22/2024 Component Date Value Ref Range Status RESULTS 12/22/2024 2.5 Final Office Visit on 12/19/2024 Component Date Value Ref Range Status RESULTS 12/19/2024 8.0 Final Office Visit on 12/05/2024 Component Date Value Ref Range Status RESULTS 12/05/2024 6.3 Final Assessment/Plan Diagnoses and all orders for this visit: Longstanding persistent atrial fibrillation (HCC) - POCT Protime-INR, fingerstick docked device - warfarin (Coumadin) 4 MG tablet; Take 1 tablet (4 mg) by mouth See administration instructions 4 mg daily, except for Thursday. Dose changes frequently. - warfarin (Coumadin) 6 mg tablet; Take 1 tablet (6 mg) by mouth See administration instructions. 6mg on Saturdays. Dosing changes frequently INR much improved and now back within target range at 2.5. Will have him restart Coumadin at a lower dosage. New dosing 6 mg on Saturdays. 4 mg daily for the rest of the week. Recheck INR in two weeks. Anticoagulant long-term use Denies any current abnormal bleeding. Follow up in about 2 weeks (around 01/05/2025) for INR. documented in this encounterSaint Louis University Health Science [id number] History of Present illness Narrative* Tyson Bhatti MD - 12/19/2024 4:00 PM EDT Images from the original note were not included. HPI INR VISIT Additional comments: Coumadin -- hold x 3 days then take 7mg QD Last edited by Fannie Ackerman LPN on 12/19/2024 3:55 PM. Subjective Patient ID: Emigdio Jeong is a 84 y.o. male who presents for INR VISIT (Coumadin -- hold x 3 days then take 7mg QD). Taking coumadin as directed Denies any abnormal bleeding Her for INR Over the past 2 weeks, how often have you been bothered by any of the following problems? Little interest or pleasure in doing things: Not at all Feeling down, depressed, or hopeless: Not at all Patient Health Questionnaire-2 Score: 0 Current Outpatient Medications on File Prior to [...] Smokeless tobacco: Never Vaping Use Vaping status: Never Used Substance Use Topics Alcohol use: Defer Drug use: Defer No family history on file. Past Medical History: Diagnosis Date A-fib (HCC) Glaucoma Hypercholesteremia Hypertension Past Surgical History: Procedure Laterality Date CATARACT EXTRACTION Bilateral NCEA GLAUCOMA SURGERY Bilateral 2021 SLT - OU Visit Vitals Ht 6' BMI 30.65 kg/m Smoking Status Former BSA 2.29 m [...] normal. Judgment: Judgment normal. Office Visit on 12/19/2024 Component Date Value Ref Range Status RESULTS 12/19/2024 8.0 Final Assessment/Plan Diagnoses and all orders for this visit: Longstanding persistent atrial fibrillation (HCC) - POCT Protime-INR, fingerstick docked device - Hold coumadin until further notice. INR in 3 days. No follow-ups on file. documented in this encounterSaint Louis University Health Science [id number] History of Present illness Narrative* Tyson Bhatti MD - 12/05/2024 8:30 AM EDT Images from the original note were not included. Subjective Patient ID: Emigdio Jeong is a 84 y.o. male who presents for No chief complaint on file.. Emigdio presents today for an INR check. His last INR was 3.3. Today's INR is 6.3. Over the past 2 weeks, how often have you been bothered by any of the following problems? Little interest or pleasure in doing things: Not at all Feeling down, depressed, or hopeless: Not at all Patient Health Questionnaire-2 Score: 0 Current Outpatient Medications on File Prior to [...] Smokeless tobacco: Never Vaping Use Vaping status: Never Used Substance Use Topics Alcohol use: Defer Drug use: Defer No family history on file. Past Medical History: Diagnosis Date A-fib (HCC) Glaucoma Hypercholesteremia Hypertension Past Surgical History: Procedure Laterality Date CATARACT EXTRACTION Bilateral NCEA GLAUCOMA SURGERY Bilateral 2021 SLT - OU Visit Vitals Smoking Status Former Review of Systems Objective Physical Exam Constitutional: [...] normal. Judgment: Judgment normal. Office Visit on 12/05/2024 Component Date Value Ref Range Status RESULTS 12/05/2024 6.3 Final Assessment/Plan Diagnoses and all orders for this visit: Moderate late onset 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 disturbance, psychotic disturbance, mood disturbance, or anxiety (HCC) Anticoagulant long-term use - POCT Protime-INR, fingerstick docked device - Hold coumadin For 3 days then reduce to7mg po qpm, RTC 10 days to recheck. Longstanding persistent atrial fibrillation (HCC) - This office visit was spent in consultation regarding the patient's current medical problems, differential diagnoses, testing/imaging results, and treatment options. Greater than 25 minutes was spent in [id number] consultation and coordination of care. - The patient was seen today in follow up of recent hospital ER visit. All available hospital records/labs/diagnostics were reviewed and discussed with the patient. ER discharge meds were reviewed. Any changes to plan are as noted. No follow-ups on file. documented in this encounterSaint Louis University Health Science [id number] Telephone encounter Note* Telephone Encounter - Isabelle Rucker NP - 11/10/2024 11:03 AM EDT This pt had a fall at [facility] on 11/02/24, he was seen at the ER and did have xrays and a CT of his head. He has continued left knee pain and swelling. Started on a steroid burst 11/08/24 and was instructed to continues ICE to the area as needed. [facility] Therapy to evalk and treat. D/T continued pain we will get a repeat xray of the Left knee. [facility] [id number] Miscellaneous Notes* Telephone Encounter - Isabelle Rucker NP - 11/10/2024 11:03 AM EDT This pt had a fall at [facility] on 11/02/24, he was seen at the ER and did have xrays and a CT of his head. He has continued left knee pain and swelling. Started on a steroid burst 11/08/24 and was instructed to continues ICE to the area as needed. [facility] Therapy to evalk and treat. D/T continued pain we will get a repeat xray of the Left knee. documented in this encounterSaint Louis University Health Science [id number] Radiology Diagnostic study [facility] [place] [address] [place] [address] CT Scan Report Signed Patient: Emigdio Jeong III MR#: [id number] : 1940 Acct:[id number] Age/Sex: 84 / M ADM Date: 5 Loc: ER Room: Type: [facility] ER Attending Dr: Copies to: Josue [...] Hassan M.D. 11/02/2024 6:47 PM Dictation Location: [place] [address] Transcribed By: [facility] 11/02/241846 Dictated By: Pako Hassan MD 11/02/241844 Signed By: 11/02/241846 [facility] Work Phone: 1(791) 491-441605-28-2025 Radiology Diagnostic [facility] Main [address] [address] [address] Scan Report Signed Patient: Emigdio Jeong III MR#: [id number] : 1940 Acct:[id number] Age/Sex: 84 / M ADM Date: 5 Loc: ER Room: Type: [facility] ER Attending Dr: Copies to: Josue Leigh DO~ Ordering Provider: Josue Leigh DO Date of Service: 11/02/24 CT/CT head/brain wo con: fall CT BRAIN WITHOUT CONTRAST: CLINICAL HISTORY: Fall, positive LOC, laceration to forehead COMPARISON: 12/17/2023 TECHNIQUE: Contiguous axial unenhanced images were obtained through the brain. This CT exam was performed using one or more following dose reduction techniques: Automated exposure control, adjustmentof the mA and/or kV accordingto patient size, [...] Hassan M.D. 11/02/2024 6:41 PM Dictation Location: [place] [address] Transcribed By: SKYLER 11/02/241840 Dictated By: Pako Hassan MD 11/02/24 183 Signed By: 11/02/241840 [facility] Work Phone: 1(790) 596-815005-05-2025 History of Present illness Narrative* Tyson Bhatti MD - 10/10/2024 3:30 PM EDT Images from the original note [...] (around 11/21/2024) for PT/INR. documented in this encounterSaint Louis University Health Science [id number] History of Present illness Narrative* Kacy Pretty, DO - 10/03/2024 9:45 AM EDT Images from the original note were not included. Chief complaint: Memory loss Subjective Emigdio Jeong, 84 y.o., male Patient presents today for a follow up for Alzheimer's disease. Patient presents today with his daughter. Patient currently resides at [facility]. Patients daughter states since he has moved from the [place] to [facility] she has noticed a difference. She states he has had no hallucinations since being there. She believes this is because he is receiving his medication correctly here. She notes that the pt short term is worsening. Memories from years ago are far and few between. Tends to forget his 's name. Forgets how to operate simple equipment like telephones and his seatbelt. Sheis getting healthy meals and she believes the [...] reflexes are 2+ and symmetric throughout. Coordination: [id number]-[id number] testing and rapid alternating movements are normal Gait: Normal Review and summary of old records: CT of the brain without contrast on 12/17/2023: Atrophy and chronic microvascular changes. No acuteintracranial abnormality. MRI of the brain without contrast [...] fraction with no evidence of mass, vegetation orthrombus. I did review hospital admission where the [...] evaluation is detailed as above. The patient's [place] cognitive assessment was 09/04 but I do think some of this was effort dependent. His mood and nighttime seems to be better since last visit. The patient's daughter does feel that since transitioned to [place] his memory, medication dosages and overall mood have been stable to improved. Patient is again overall stable in September 2024. Plan: I have advised the patient not to drive. His daughters were with him today and will help imposed these restrictions. - ok to continue to use trazadone. We previously tried to use quetiapine but facility seems to havechanged this to trazodone and the patient seems to be doing well so we will not alter it further atthis time History of ischemic stroke Patient does [...] plan, and return instructions documented in this encounterSaint Louis University Health Science [id number] History of Present illness Narrative* Tyson Bhatti MD - 08/29/2024 3:00 PM EDT Images from the original note [...] stable since last assessment. No changes in treatmentare suggested at this time. Longstanding persistent atrial fibrillation (CMS/HCC) - POCT Protime-INR, fingerstick docked device - Reduce dose to 6mg T/Th/Sa; 4mg all other Follow up in about 6 weeks (around 10/10/2024) for PT/INR. documented in this encounterSaint Louis University Health Science [id number] History of Present illness Narrative* Tyson Bhatti MD - 08/01/2024 2:45 PM EST Images from the original note were not [...] Do you have a medical power of consumer attorney?: Yes Who is your medical power of consumer attorney?: daughter Objective : BP 128/76 Pulse [...] a living will and durable power of consumer attorney for healthcare. We discussed telling atkinson [...] Coumadin, then decrease standing dose to 4mg M/W/; 6mg all other Orders Placed This Encounter Procedures POCT Protime-INR, fingerstick docked device Follow up in about 4 weeks (around 08/29/2024) for PT/INR. Electronically signed by Tyson Bhatti MD on August 01, 2024 documented in this encounterSaint Louis University Health Science [id number] History of Present illness Narrative* MORENITA Thornton - 07/04/2024 9:00 AM EST Images from the original note were not [...] currently within therapeutic range at 2.3. Per 's instruction, will have patient resume previous Coumadin dosing. Note provided for Home Health with order regarding Coumadin. Anticoagulant long-term use Return to clinic in 4 weeks for INR recheck. Follow up in about 4 weeks (around 08/01/2024) for INR. documented in this [facility]01-24-2025 History of Present illness Narrative* Tyson Bhatti MD - 07/01/2024 9:30 AM EST Images from the original note were not included. HPI INR VISIT Additional comments: Coumadin 4mg Tues/Fri 6mg all other days Last edited by Fannie Ackerman LPN on 07/01/2024 9:38 AM. Subjective Patient ID: Emigdio Jeong is a 83 y.o. male who presents for INR VISIT (Coumadin 4mg Tues/Fri6mg all other days) and orthostatic hypotension. Taking [...] (on 07/04/2024) for PT/INR. documented in this encounterSaint Louis University Health Science CenterTklehreaor67-10-6249 History of Present illness Narrative* HAILEY FARLEY - 06/21/2024 9:00 AM EST Images from the original note were not included. Subjective Patient ID: Emigdio Jeong is a 83 y.o. male who presents for body aches/pain Emigdio presents today for some headache, feels tired and seems confused. She told the [facility] that he feels achy. Current Outpatient [...] Physical Exam Assessment/Plan No follow-ups on file. * Ayesha Camp NP - 06/21/2024 9:00 AM EST Images from the original note were not [...] suggested at this time. documented in this encounterSaint Louis University Health Science CenterQpohjovuob13-10-1410 History of Present illness Narrative* Tyson Bhatti MD - 05/27/2024 10:00 AM EST Images from the original note were not included. HPI INR VISIT Additional comments: Coumadin 6mg everyday EXCEPT Thursday 4mg Results Additional comments: Lab results Last edited by Fannie Ackerman LPN on 05/27/2024 9:53 AM. Subjective Patient ID: Emigdio Jeong is a 83 y.o. male who presents for INR VISIT (Coumadin 6mg everydayEXCEPT Thursday 4mg ), Results (Lab results), and [...] then new reduced dose- 4mg on and Fri; 6mg all other days. Follow up in about 4 weeks (around 06/24/2024) for PT/INR, F/U med changes. documented in this encounterSaint Louis University Health Science CenterFzvkrnocfe79-18-2281 History of Present illness Narrative* Kacy Pretty, - 05/16/2024 12:15 PM EST Images from the original note were not included. Chief complaint: Memory loss Subjective Emigdio Jeong, 83 y.o., male Patient presents today for a follow up for Alzheimer's disease. Patient presents today with his daughter. Patient currently resides at [facility]. Patients daughter states since he has moved from the [place] to [facility] she has noticed a difference. She states he has had no hallucinations since being there. She believes this is because he is receiving his medication correctly here. She isgetting healthy meals and she believes the social [...] reflexes are 2+ and symmetric throughout. Coordination: Cpzlac-mm-qmyg testing and rapid alternating movements are normal Gait: Normal Review and summary of old records: CT of the brain without contrast on 12/17/2023: Atrophy and chronic microvascular changes. No acuteintracranial abnormality. MRI of the brain without contrast [...] fraction with no evidence of mass, vegetation orthrombus. I did review hospital admission where the [...] above. The patient's Juarez cognitive assessment was 09/04 but I do think some of this was effort dependent. His mood and nighttime seems to be better since last visit. The patient's daughter does feel that since transitioned to [place] his memory, medication dosages and overall mood have been stable to improved. Plan: I have advised the patient not to drive. His daughters were with him today and will help imposed these restrictions. - ok to continue to use trazadone. We previously tried to use quetiapine but facility seems to havechanged this to trazodone and the patient seems to be doing well so we will not alter it further atthis time History of ischemic stroke Patient does [...] plan, and return instructions documented in this encounterSaint Louis University Health Science [id number] History of Present illness Narrative* Tyson Bhatti MD - 04/29/2024 10:00 AM EST Images from the original note were not [...] for PT/INR, Test/Lab Review. documented in this encounterSaint Louis University Health Science CenterDicpblbnqv82-34-5597 History of Present illness Narrative* Tyson Bhatti MD - 03/18/2024 11:00 AM EDT Images from the original note were [...] (around 04/29/2024) for PT/INR. documented in this encounterSaint Louis University Health Science CenterMrcpirqhko87-32-4616 History of Present illness Narrative* Tyson Bhatti MD - 02/29/2024 2:30 PM EDT Images from the original note [...] time each day Take as directed per AfterVisit Summary. No current facility-administered medications on file [...] (around 03/14/2024) for PT/INR. documented in this encounterSaint Louis University Health Science CenterZolpblumep32-37-1968 History of Present illness Narrative* Tyson Bhatti MD - 02/17/2024 3:00 PM EDT Images from the original note were not included. HPI Establish Care Additional comments: Previous PCP Dr Rich Oconnell at [facility] Sees cardiology [place] Sees neurology [place] INR VISIT Additional comments: Coumadin 4mg Mon 6mg all other days Last edited by Fannie Ackerman LPN on 02/17/2024 2:46 PM. Subjective Patient ID: Emigdio Jeong is a 83 y.o. male who presents for Establish Care (Previous PCP Dr Villanueva/Anish at [facility]/Sees cardiology [place]/Sees neurology [place]) and INR VISIT (Coumadin 4mg Mon 6mg all other days). Pt accompanied by 2 family members (children) Med list updated assisted living dispenses meds to pt Regular diet He denies any medical complaints Would like PCP to take over coumadin treatment he is going to have INR checked every 2 weeks and isdifficult for family to transport him coming to [place] [facility] would be more convenient Current Outpatient [...] time each day Take as directed per AfterVisit Summary. [DISCONTINUED] losartan (Cozaar) 50 MG tablet [...] then resume prior. 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 documented in this encounterSaint Louis University Health Science CenterOszlpmwgzc53-67-7578 Discharge summary Author Nadiya Hagan [facility] December 22, 2023 12:47pmNote Date/TimeJuly 2023 12:47pm[place] [address] Discharge Summary Signed Patient: Emigdio Jeong III MR#: [id number] : 1940 Acct:[id number] Age/Sex: 83 / M Adm Date: 4 Loc: Room: [address] [place] [address]: Nadiya Hagan MD Copies to: [...] brain showed no acute intracranial process but pos itive for old stroke as well as microvascular [...] team and recommended to be admitted to [facility] for short period of time to [...] ask her primary care doctor to obtain [facility] record entirely to address abnormalities seen on labs and imagingthat I have and have not addressed during this hospitalization, follow- up on pending blood work, imaging and pathology is if available and to follow-up on needed medical care in the outpatient setting. Time Spent with Patient Time spent providing/coordinating discharge services (# min): 50 Discharge Plan Discharge Plan Patient Disposition: Assisted Facility Additional Instructions: I may not have addressed or treated all of your medical illnesses or the abnormal blood work or imaging studies during this hospitalization. Please ask your primary care provider to obtain [facility] records entirely to follow up on all of the abnormal physical, laboratory, and imaging findings thatI have not addressed. For retirement providers: Recommend PT/INR every Thursday and OR every Thursday and Thursday OR every Thursday and Thursday. Please return back to the emergency room or seek medical attention if your symptoms worsen or return. Titrate Coumadin dose to keep INR between 2 and 3. Discharging you from [facility] does not mean that your medical care [...] PO DAILY Qty: 30 0RF Continued warfarin [Jantoven] 2 mg tablet 6 mg PO 6XW Rx Instructions: thursday,thursday,,thursday, thursday and thursday warfarin 2 mg tablet 4 mg PO QWEEK Patient Comments: follows with coumadin clinic Rx Instructions: mondays Exam Physical Exam Vital Signs: Temp Pulse Resp BP Pulse Ox O2 Del Method 97.8 F 80 16 129/85 97 Room Air 12/22/23 12:12/22/23 12:12/22/23 12:12/22/23 12:12/22/23 12:12/22/23 12:26 Narrative: [pt is awake and alert. oriented to place, time and person HEENT: [place] conjunctiva and NL buccal mucosa Neck: Supple, [...] Non reactive Documented By: Nadiya Hagan MD 12/22/23 1242 Signed By: <Electronically signed by Nadiya Hagan MD> 12/22/23 1249 [facility] Work Phone: 1(620) 710-748707-15-2024 Progress note Author Nadiya Hagan [facility] December 21, 2023 12:49pmNote Date/TimeJuly 2023 12:[address]pm[address] [address] Hospitalist Progress Note Signed Patient: Emigdio Jeong III MR#: [id number] : 1940 Acct:[id number] Age/Sex: 83 / M Adm Date: 4 Loc: 3T Room: [address] [place] [address] Type: ADM IN Attending Dr: Nadiya Hagan [...] oriented to place, time and person HEENT: [place] conjunctiva and NL buccal mucosa Neck: Supple, [...] since patient lives in old building in 1920 - Neurology consulted. Input appreciated. MRI brain [...] <Electronically signed by Nadiya Hagan MD> 12/21/23 6074 [facility] Work Phone: 1(996) 881-584107-14-2024 Progress note Author Marino Acuña [facility] December 20, 2023 11:24amNote Date/TimeJuly 2023 11:24[place] [address] Hospitalist Progress Note Signed Patient: Emigdio Jeong III MR#: [id number] : 1940 Acct:[id number] Age/Sex: 83 / M Adm Date: 4 Loc: 3T Room: [address] [place] [address] Type: ADM IN Attending Dr: Marino Acuña MD Copies to: ~ Date of Service: 12/20/2023 Subjective Subjective Narrative: Patient was seen and evaluated at bedside, alert, awake, oriented to self, placenot to time. he didrequire haldol last night. BP better controlled after [...] Attending Physician Documented By: Marino Acuña MD 12/20/23 11 23 Signed By: <Electronically signed by Marino Acuña MD> 12/20/23 [facility] Work Phone: 1(231) 617-261707-13-2024 Progress note Author Barry Williamson [facility] December 19, 2023 1:05pmNote Date/TimeJuly 2023 1:05pm[address] [address] Neurology Progress Note Signed Patient: Emigdio Jeong III MR#: [id number] : 1940 Acct:[id number] Age/Sex: 83 / M Adm Date: 4 Loc: 3T Room: [address] [place] [address] Type: ADM IN Attending Dr: Marino Acuña [...] Therapy Recommendations: OT Recommendations OT Recommended Discharge Assisted Facility Location OT Recommended Services at Physical Therapy,Occupational Therapy Discharge PT Recommendations PT Recommended Discharge Assisted Facility Location PT Recommended Services at Physical [...] to month and year. Driving privileges taken awayabout 3 weeks ago after several concerning driving [...] <Electronically signed by MD Barry Williamson> 12/19/23 1305 [facility] Work Phone: 1(831) 273-177407-13-2024 Progress note Author Marino Acuña [facility] December 19, 2023 12:03pmNote Date/TimeJuly 2023 12:03pmM[place] [id number] Hospitalist Progress Note Signed Patient: Emigdio Jeong III MR#: [id number] : 1940 Acct:[id number] Age/Sex: 83 / M Adm Date: 4 Loc: 3T Room: [address] [place] [address] Type: ADM IN Attending Dr: Marino Acuña MD Copies to: ~ Date of Service: 12/19/2023 Subjective Subjective Narrative: Patient was seen and evaluated at bedside, alert, awake, oriented to self, placenot to time. he didrequire haldol last night. Noted to be hypertensive [...] Tablet PO 12/18/24 08:59 1,000 mcg QAM CATSILLO Administration Haloperidol 1 mg 12/18/23 18:02 12/18/23 [...] 12/19/23 09:41 Losartan 25 Mg Tablet PO 12/18/24 09:14 [...] with patient at bedside. All questions answered. Mairno Matos MD Internal Medicine Hospitalist Attending Physician Documented By: Marino Acuña MD 12/19/23 12 00 Signed By: <Electronically signed by Marino Acuña MD> 12/19/23 1203 [facility] Work Phone: 1(994) 655-480907-12-2024 Progress note Author Felipe Lopez [facility] December 18, 2023 3:39pmNote Date/TimeJuly 2023 3:39[place] [address] Neurology Progress Note Signed Patient: Emigdio Jeong III MR#: [id number] : 1940 Acct:[id number] Age/Sex: 83 / M Adm Date: 4 Loc: Room: [address] [place] [address] Type: ADM IN Attending Dr: Marino Acuña [...] Therapy Recommendations: OT Recommendations OT Recommended Discharge Assisted Facility Location OT Recommended Services at Physical Therapy,Occupational Therapy Discharge PT Recommendations PT Recommended Discharge Assisted Facility Location PT Recommended Services at Physical [...] better today. He does not know if heis going down for the MRI yet or [...] 1535 Signed By: <Electronically signed by Felipe Loepz DO> 12/18/23 1539 [facility] Work Phone: 1(437) 832-286207-12-2024 Progress note Author Marino Acuña [facility] December 18, 2023 11:41amNote Date/TimeJuly 2023 11:[address]am[address] [address] Hospitalist Progress Note Signed Patient: Emigdio Jeong III MR#: [id number] : 1940 Acct:[id number] Age/Sex: 83 / M Adm Date: 4 Loc: 3T Room: [address] [place] [address] Type: ADM IN Attending Dr: Marino Acuña [...] MRI brain. Will premedicate with IM VERSED priorMRI. - Ordered PT/OT, CM following, plan for [...] <Electronically signed by Marino Acuña MD> 12/18/[address] [place] [address] Work Phone: 1(489) 829-789307-11-2024 Consult note Author Felipe Lopez [facility] December 17, 2023 4:46pmNote Date/TimeJuly 2023 4:46pmM[place] [id number] Neurology Consult Note Signed Patient: Emigdio Jeong III MR#: [id number] : 1940 Acct:[id number] Age/Sex: 83 / M Adm Date: 4 Loc: 3T Room: [address] [place] [address] Type: ADM IN Attending Dr: Marino Acuña MD Copies to: Felipe Lopez DO [facility] Marino MD~ HPI Consult Date: 12/17/23 Large Animal Husbandry Technician: Felipe Lopez DO [facility] Medical History Leg pain, left Surgical History [...] Kusum Hall M.D.12/17/2023 1:43 PM Dictation Location: [place] [address] Assessment/Plan (1) Hallucinations: (2) Acute encephalopathy: (3) [...] multiple months to maybe more than a yearhe has had gradual cognitive decline. In the [...] he destroyed a mailbox. And about a monthand a half ago Highway marketing content manager had tostop him because he was [...] for Lewy body dementia. Overall presentation not consistentwith a cerebritis. Low suspicion for cerebrovascular syndrome [...] signed by Felipe Lopez DO> 12/17/23 1646 [facility] Work Phone: 1(858) 443-440107-11-2024 History and physical note Author Marino Acuña [facility] December 17, 2023 4:35pmNote Date/TimeJuly 2023 2:38pm[place] [address] Hospitalist H&P Signed Patient: Emigdio Jeong III MR#: [id number] : 1940 Acct:[id number] Age/Sex: 83 / M Adm Date: 4 Loc: Room: [address] [place] [address] Type: ADM IN Attending Dr: Marino Acuña MD Copies to: DO Marino Patton MD~ HPI DATE OF EXAMINATION: 12/17/23 CHIEF COMPLAINT: AMS HISTORY OF PRESENT ILLNESS: Patient is an 83-year-old male with medical history listed below presented to the ER accompanied byhis daughter due to reports of visual and [...] except as mentioned elsewhere in the documentation [facility] Medical History Leg pain, left Surgical History [...] 12:28 MCH 25.6 pg (27.5-35.2) L 12/17/23 12: MCHC 32.1 g/dL (32.5-35.6) L 12/17/23 12: RDW 16.7 % (12.0-14.8) H 12/17/23 12:28 Plt Count 143 x10E3/uL (150-450) L 12/17/23 12:28 MPV 8.0 fl (6.6-10.1) 12/17/23 12:28 Neut % (Auto) 58.5 % (.) 12/17/23 12:28 Lymph % (Auto) 23.6 % (.) 12/17/23 12:28 Dickens % (Auto) 15.0 % (.) 12/17/23 12:28 Eos % (Auto) 2.0 % (.) 12/17/23 12:28 Baso % (Auto) 0.9 % (.) 12/17/23 12:28 Nucleat RBC Rel Count 0.3 /100 WBC (0-0.5) 12/17/23 12:28 Neut # (Auto) 2.5 x10E3/uL (1.8-7.7) 12/17/23 12:28 Lymph # (Auto) 1.0 x10E3/uL (1.00-4.8) 12/17/23 12:28 Dickens # (Auto) 0.6 x10E3/uL (0.0-0.8) 12/17/23 12:28 [...] setting as: INPATIENT because of an expectation ofan over 2 midnight stay. Estimated length of stay (# of days): 3 Documented By: Marino Acuña MD 12/17/23 14 37 Signed By: <Electronically signed by Marino Acuña MD> 12/17/23 1633 [facility] Work Phone: 1(217) 744-735501-12-2024 History of Present illness Narrative* Fletcher Ziegler MD - 06/19/2023 2:10 PM EST Subjective Eimgdio Jeong is a 82 y.o. male Chief [...] ORALLY ALL OTHER DAYS OR DIRECTED. [place] [facility] [place] [facility], Disp: , Rfl: atorvastatin (Lipitor) 20 mg tablet, Take 1 tablet (20 mg) by mouth once daily., Disp: 30 tablet, Rfl: 11 Assessment/Plan 1. 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 documented in this encounterMer[facility] Work Phone: 1(852) 184-723901-10-2024 Evaluation note* Encounter Date Diagnosis Assessment Notes [...] correct. Patient has not had appointment with [facility] dry yard worker. Per [facility], this is scheduled on 06/19. Patient was reminded of this appointment and asked to confirm the time of this appointment with [facility]. Patient provided with [facility] phone number and address. Patient admitts to having some confusion since their 's passing. Seen by Mishel Street PharmD [employer] Other 12-20-2023 Evaluation note* Encounter Date Diagnosis [...] this. Patient has not had appointment with [facility] yard worker. Patient was encouraged to make an appointment and provided with [facility] phone number. Patient states he will stop by [facility] today. Patient provided with handwritten calendar with number of tablets to take daily until date of next appointment. Seen by Mishel Street PharmD [employer] Other 11-29-2023 Evaluation note* Encounter Date Diagnosis [...] of subtherapeutic INR. Reminded patient to call [facility] when a refill is needed, not to wait for appointment. Patient provided with handwritten calendar with number of tablets to take daily until date of next appointment. Seen by Jeniffer Peres [facility] [employer] Other 2023 Evaluation note* Encounter Date Diagnosis [...] wafarin but cannot say when it may havebeen or if it was a 2 tablet [...] offered a pill organizer but declined, stating Idon't need it. Pt also declines other advice to improve adherence like using alarms or phone apps. Seen by Charis Ontiveros PharmD [employer] Other 08-16-2023 Evaluation note* Encounter Date Diagnosis [...] on the handout provided at each appointment, butwas unsure how frequently he was taking his warfarin. Provided patient with written calender in attempt to avoid future confusion. Seen by Rebecca Carr/Mishel Street, Rebecca [facility] Other 07-11-2023 Evaluation note* Encounter Date Diagnosis [...] INR. Seen by Rebecca Cobb/Mishel Street, Rebecca [facility] Other 03-29-2023 Evaluation note* Encounter Date Diagnosis [...] per patient preference. Seen by Jeniffer Peres, [facility] [employer] Other 03-13-2023 Evaluation note* Encounter Date Diagnosis [...] then continue current plan. Follow up in 2weeks. Patient took 6mg today (Thursday) in error (should have been 4mg). Will reduce to 2mg Saturday 08/19 to adjust for the error. Patient has possibly been taking 6mg all days of the week since 07/10 appointment. Seen by Jeniffer Peres, [facility] [employer] Other 02-23-2023 Evaluation note* Encounter Date Diagnosis [...] changes in diet. Seen by Jeniffer Peres, [employer] Other 02-02-2023 Evaluation note* Encounter Date Diagnosis Assessment Notes Treatment Notes Treatment Clinical Notes Jul, Medication monitoring encounter (ICD-10 - Z51.81) Referring Provider: Fletcher Ziegler Diagnosis: Atrial Fibrillation INR Goal: 2-3 INR: 1.6 Warfarin Tablet Size: 2mg Thursday: 6mg Thursday: 4mg Thursday: 6mg Thursday: 6mg : 6mg Thursday: 6mg Thursday: 6mg Total Weekly Dose: 40mg Boost an additional 2mg today (2/2) and tomorrow (/), then continue current plan. Follow up in 3 weeks per patient preference. Unknown cause of subtherapeutic INR. Patient denies any missed doses or increase in Vit K rich foods. Seen by Jeniffer Peres, [facility] [employer] Other 12-19-2022 Evaluation note* Encounter Date Diagnosis [...] up in 6 weeks. Seen by Dusty Andrews PharmD [employer] Other 11-14-2022 Evaluation note* Encounter Date Diagnosis [...] 6 weeks after the holidays. Seen by Yelnea Puri [facility] [employer] Other 09-08-2022 Evaluation note* Encounter Date Diagnosis [...] up in 4 weeks. Seen by Dusty Andrews PharmD [employer] Other 08-11-2022 Evaluation note* Encounter Date Diagnosis [...] up in 4 weeks. Seen by Dusty Andrews PharmD [employer] Other 07-14-2022 Evaluation note* Encounter Date Diagnosis [...] 4 weeks. Seen by Mili Guzman RN [employer] Other 06-02-2022 Evaluation note* Encounter Date Diagnosis [...] up in 4 weeks. Seen by Dusty [employer] Other 05-19-2022 Evaluation note* Encounter Date Diagnosis [...] See calendar. Seen by Mili Guzman RN [employer] Other 04-28-2022 Evaluation note* Encounter Date Diagnosis [...] up in 3 weeks. Seen by Dusty Andrews PharmD [employer] Other 04-14-2022 Evaluation note* Encounter Date Diagnosis [...] See calendar. Seen by Mili Guzman RN [employer] Other 03-31-2022 Evaluation note* Encounter Date Diagnosis [...] 4 weeks. Seen by Mili Guzman RN [employer] Other 03-03-2022 Evaluation note* Encounter Date Diagnosis [...] 4 weeks. Seen by Mili Guzman RN [employer] Other 02-01-2022 Evaluation note* Encounter Date Diagnosis [...] up in 3 weeks. Seen by Dusty Andrews PharmD [employer] Other 01-04-2022 Evaluation note* Encounter Date Diagnosis [...] up in 4 weeks. Seen by Dusty Andrews PharmD [employer] Other 12-13-2021 Evaluation note* Encounter Date Diagnosis [...] 3 weeks. Seen by Mili Guzman RN [employer] Other 11-29-2021 Evaluation note* Encounter Date Diagnosis [...] 2 weeks. Seen by Mili Guzman RN [employer] Other 10-28-2021 Evaluation note* Encounter Date Diagnosis [...] up in 4 weeks. Seen by Dusty Andrews PharmD [employer] Other 09-30-2021 Evaluation note* Encounter Date Diagnosis [...] up in 4 weeks. 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- Primary 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 History of PTCA Postsurgical percutaneous transluminal coronary angioplasty status Permanent atrial fibrillation (CMS/HCC) Atrial fibrillation High risk medication use Murmur, heart Undiagnosed cardiac murmurs documented in this encounter [facility] Work Phone: Evaluation noteNo assessment information available [facility] Work Phone: Evaluation note* Diagnosis Murmur, heart Undiagnosed cardiac murmurs documented in this encounter [facility] Work Phone: Evaluation note* Diagnosis Onset Date Resolution Status Bilateral impacted cerumen acuteBronchitisacute [facility] Work Phone: Evaluation note* Diagnosis Onset Date Resolution Status Bilateral impacted cerumen acuteBronchitisacuteAtrial fibrillationchronicAtrial fibrillationchronic [facility] Work Phone: Evaluation note* Diagnosis Onset Date Resolution Status Atrial fibrillation chronicAtrial fibrillationchronicAtrial fibrillationchronic [facility] Work Phone: Evaluation note* Diagnosis Onset Date Resolution Status Atrial fibrillation chronicAtrial fibrillationchronicAtrial fibrillationchronicAtrial fibrillation chronicAtrial fibrillationchronic [facility] Work Phone: Evaluation note* Diagnosis Onset Date Resolution Status Atrial fibrillation chronicAtrial fibrillationchronicAtrial fibrillationchronicAtrial fibrillation chronicAtrial fibrillationchronicAcute encephalopathyacuteAltered mental status acute [facility] Work Phone: Evaluation note* Diagnosis Onset Date Resolution Status Atrial fibrillation chronicAtrial fibrillationchronicAtrial fibrillationchronicAtrial fibrillation chronicAtrial fibrillationchronicAcute encephalopathyacuteAltered mental status [id number] deficiencyacuteHallucinationsacuteHypertensive urgencyacuteOld cerebrovascular accident (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acuteAtrial fibrillation chronic [facility] Work Phone: Evaluation note* Diagnosis Onset Date Resolution Status Atrial fibrillation chronicAtrial fibrillationchronicAtrial fibrillationchronicAcute encephalopathy [id number] deficiencyacuteHypertensive urgencyacuteOld cerebrovascular accident (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acuteAtrial fibrillationchronicAtrial fibrillation [facility] Work Phone: Evaluation note* Diagnosis Longstanding persistent atrial fibrillation (CMS/HCC) documented in this encounter [facility]Evaluation [facility]* Diagnosis 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 History of ischemic stroke documented in this encounter [facility] HealthcareEvaluation note* Diagnosis Longstanding persistent atrial fibrillation (CMS/HCC)- Primary 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) History of [...] Localized edema Edema documented in this encounter [facility] HealthcareEvaluation note* Diagnosis Orthostatic hypotension- Primary Longstanding persistent atrial fibrillation (CMS/HCC) documented in this encounter [facility] HealthcareEvaluation note* Diagnosis Longstanding persistent atrial fibrillation (CMS/HCC) documented in this encounter [facility] HealthcareEvaluation note* Diagnosis Cerumen debris on tympanic [...] onset (CODE) (CMS/HCC) documented in [facility] encounter [facility]* Diagnosis Acute non-recurrent pansinusitis- Primary Longstanding persistent atrial fibrillation (CMS/HCC) Dementia in other diseases classified elsewhere, severe, with agitation (CMS/HCC) Alzheimer's disease with late onset (CODE) (CMS/HCC) Orthostatic hypotension documented in this encounter [facility]* Diagnosis Longstanding persistent atrial fibrillation (CMS/HCC)- Primary Anticoagulant long-term use Encounter for long-term (current) use of anticoagulants documented in this encounter [facility]* Diagnosis Routine general medical examination at health care facility- Primary Routine general medical examination at a health care facility ACP (advance care planning) Other specified counseling Longstanding persistent atrial fibrillation (CMS/HCC) documented [facility] encounter [facility]* Diagnosis Alzheimer's disease with late onset (CODE) (CMS/HCC)- Primary Longstanding persistent atrial fibrillation (CMS/HCC) documented [facility] encounter [facility]* Diagnosis 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 History of ischemic stroke documented in this encounter [facility]* Diagnosis Longstanding persistent atrial fibrillation (CMS/HCC) documented [facility] encounter [facility]* Diagnosis History of fall- Primary Personal history of fall Pain and swelling of left knee documented in this encounter [facility]* Diagnosis Moderate late onset 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 disturbance, psychotic disturbance, mood disturbance, or anxiety (HCC)- Primary Anticoagulant long-term use Encounter for long-term (current) use of anticoagulants Longstanding persistent atrial fibrillation (HCC) documented [facility] encounter [facility]* Diagnosis Longstanding persistent atrial fibrillation (HCC) documented in this encounter [facility]* Diagnosis Anticoagulant long-term use- Primary Encounter for long-term (current) use of anticoagulants Longstanding persistent atrial fibrillation (HCC) documented in this encounter [facility]* Diagnosis Anticoagulant long-term use- Primary Encounter for long-term (current) use of anticoagulants Paroxysmal atrial fibrillation (HCC) Atrial fibrillation documented in this encounter [facility]Evaluation note* Diagnosis Paroxysmal atrial fibrillation (HCC)- Primary Atrial fibrillation Anticoagulant long-term use Encounter for long-term (current) use of anticoagulants documented in this encounter [facility] HealthcareEvaluation note* Diagnosis Primary open angle glaucoma (POAG) of both eyes, moderate stage- Primary documented in this encounter [facility] HealthcareEvaluation note* Diagnosis Paroxysmal atrial fibrillation (HCC)- Primary Atrial fibrillation Anticoagulant long-term use Encounter for long-term (current) use of anticoagulants documented in this encounter [facility] HealthcareEvaluation note* Diagnosis Onset Date Resolution Status Admit Date B12 deficiency acuteOctober 2024 3:22pmHistory of ischemic strokeacuteOctober 2024 3:22pm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acuteOctober 2024 3:22pm [facility] Work Phone: Evaluation note* Diagnosis Paroxysmal atrial fibrillation (HCC)- Primary Atrial fibrillation Anticoagulant long-term use Encounter for long-term (current) use of anticoagulants Primary hypertension Unspecified essential hypertension documented in this encounter [facility] HealthcareEvaluation note* Diagnosis Paroxysmal atrial fibrillation (HCC)- Primary Atrial fibrillation Anticoagulant long-term use Encounter for long-term (current) use of anticoagulants Chronic diastolic (congestive) heart failure (HCC) documented in this encounter [facility] HealthcareHistory of Present illness NarrativePatient returns in follow-up of problems as noted. In the interim he is done well. He has none of the symptoms of coronary disease that preceded his original diagnosis and subsequent bypass surgery in [place]. He also had angioplasty several years after [...] doing well we suggest follow-up in a year.-[facility]-Maryjane [address] DO Work Phone: Hospital Discharge instructions Additional Instructions I may not have addressed or treated all of your medical illnesses or the abnormal blood work or imaging studies during this hospitalization. Please ask your primary care provider to obtain [facility] records entirely to follow up on all of the abnormal physical, laboratory, and imaging findings that I have not addressed. Discharging you from [facility] does not mean that your medical care [...] to be managed by SNF providers For retirement providers: Recommend PT/INR every Thursday and OR every Thursday and Thursday OR every Thursday and Thursday. Please return back to the emergency room or seek medical attention if your symptoms worsen or return. Titrate Coumadin dose to keep INR between 2 and 3 Recommend CBC and BMP weekly at the nursing facility.[facility] Work Phone: Hospital Discharge instructions Additional Instructions If your symptoms return/worsen or you develop any further concerns or symptoms please see your doctor or return to the emergency department immediately. It is imperative that you go over today's visit and all results with your primary care provider.[facility] Work Phone: Progress note Author Nadiya Hagan [facility] December 23, 2023 8:49amNote Date/TimeJuly 2023 8:49[place] [address] Hospitalist Progress Note Signed Patient: Emigdio Jeong III MR#: [id number] : 1940 Acct:[id number] Age/Sex: 83 / M Adm Date: 4 Loc: Room: [address] [place] [address] Type: ADM IN Attending Dr: Nadiya Hagan [...] oriented to place, time and person HEENT: [place] conjunctiva and NL buccal mucosa Neck: Supple, [...] symptoms. Patient was discharged pending transportation to retirement today. 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 Murmur, heart Procedures Follow Up In Cardiology Fletcher Ziegler MD [address] [place] [address], [address] [address] Fletcher Ziegler MD [address] [place] [address] 2, [place] [id number] Referral IDStatusReasonStart DateExpiration DateVisits RequestedVisits [id number]/12/20241/11/202511 * CV Imaging (Routine) - Pending ReviewSpecialtyDiagnoses / ProceduresReferred By ContactReferred To ContactCardiology Diagnoses Murmur, heart Procedures Transthoracic Echo (TTE) Complete IA ECHO TTHRC R-T 2D W/WOM-MODE COMPL SPEC&COLR D Fletcher Ziegler MD [address] [place] [address], [place] [phone] Referral IDStatusReasonStart DateExpiration DateVisits RequestedVisits [id number] Review Perform Procedure / [facility] Work Phone: Reason for referral (narrative)No reason for referral information [facility] Work Phone: Summary Purpose Family History Unknown Family Member Name Dates Details Family history of malignant neoplasm of breast: Sister(V16.3, Z80.3) Status:ActiveHeart problem: Mother, Father Status:ActiveFamily history of hypertension: Father(V17.49, Z82.49) Status:Active Unknown Family Member Name Dates Details Family history of hypertensi on: Father(V17.49, Z82.49) Status:ActiveHeart problem: Mother, Father Status:ActiveFamily history of malignant neoplasm of breast: Sister(V16.3, Z80.3) Status:Active Relationship Condition Age at Onset Recorded Date/T gustavo brother Unknown fatherDeceasedUnknownNot SpecifiedDeceasedUnknown Relationship Condition Age at Onset Recorded Date/T gustavo brother Unknown fatherDeceasedUnknownmotherDeceasedUnknown Advance Directives Advance Directive Response Recorded Date/ Time Advance Directives No May 1:13pm Advance Directive Response Recorded Date/ Time Advance Directives No May 2:13pm TypeDate RecordedPatient RepresentativeExplanationPower of Attorney02/24/2024 1:45 PMSTATE OF [place] 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 Chief Complaint and Reason for Visit Chief Complaint afib Chief Complaint afib Chest congestionReason for VisitBilateral impacted cerumen Bronchitis Chief Complaint Chest congestion INR f/uReason for VisitBilateral impacted cerumen Bronchitis Atrial fibrillation Atrial fibrillation Chief Complaint INR f/u Reason for Visit Atrial fibrillation Atrial fibrillation Atrial fibrillation Chief Complaint Elevated INR in ER * See [facility] Message INR f/uReason for VisitAtrial fibrillation Atrial fibrillation Atrial fibrillation Atrial fibrillation Atrial fibrillation Chief Complaint Elevated INR in ER * See WL Message INR f/u confusionReason for VisitAtrial fibrillation Atrial fibrillation Atrial fibrillation Atrial fibrillation Atrial fibrillation Acute encephalopathy Altered mental status Chief Complaint Elevated INR in ER * See WL Message INR f/u confusionReason for VisitAtrial fibrillation Atrial fibrillation Atrial fibrillation Atrial fibrillation Atrial fibrillation Acute encephalopathy Altered mental status B12 deficiency Hallucinations Hypertensive urgency Old cerebrovascular accident (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 Atrial fibrillation Chief Complaint Elevated INR in ER * See WL Message INR f/u confusionReason for VisitAtrial fibrillation Atrial fibrillation Atrial fibrillation Acute encephalopathy B12 deficiency Hypertensive urgency Old cerebrovascular accident (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 Atrial fibrillation Atrial fibrillation Chief Complaint Admit Date fall November 02, 2024 6:08p m Reason for Visit Admit Date B12 deficiency March 20, 2025 3 :22pm History of ischemic stroke March 20, 2025 3:22pm Severe late onset Alzheimer's dementia w ith agitation March 20, 2025 3:22pm Reason for Referral SpecialtyDiagnoses / ProceduresReferred By ContactReferred To ContactCardiology Diagnoses Murmur, heart Procedures Transthoracic Echo (TTE) Complete [place] ECHO TTHRC R-T 2D W/WOM-MODE COMPL SPEC&COLR D Fletcher Ziegler MD [address] [facility] [address], [address] [address] Referral IDStatusReasonStholy cross DateExpiration DateVisits RequestedVisits [id number] Perform Procedure Additional Source Comments (unrecognized sect ion and content) No Status Records FoundNo Status Records FoundNo Status Records FoundNo Status Records FoundNo Status Records FoundNo Status Records FoundNo Status Records FoundNo Status Records FoundNo Status Records FoundNo Status Records FoundNo Status Records Found INFORMATION SOURCE (unrecogn ized section and content) DATE CREATED AUTHOR 02/05/2018 [facility] DATE CREATED AUTHOR AUTHOR'S ORGANIZ ATION 05/27/2019 [facility] DATE CREATED AUTHOR AUTHOR'S ORGANIZ ATION 04/07/2022 [facility]3] DATE CREATED AUTHOR AUTHOR'S ORGANIZ ATION 04/08/2022 [facility] DATE CREATED AUTHOR AUTHOR'S ORGANIZ ATION 10/11/2022 [facility] DATE CREATED AUTHOR AUTHOR'S ORGANIZ ATION 07/28/2023 [facility] DATE CREATED AUTHOR AUTHOR'S ORGANIZ ATION 04/12/2024 [facility] DATE CREATED AUTHOR AUTHOR'S ORGANIZ ATION 06/25/2024 [facility] DATE CREATED AUTHOR AUTHOR'S ORGANIZ ATION 11/17/2024 [facility] DATE CREATED AUTHOR AUTHOR'S ORGANIZ ATION 02/12/2025 [facility] DATE CREATED AUTHOR AUTHOR'S ORGANIZ ATION 04/18/2025 [facility] EPIC REASON FOR VISIT (unrecogniz ed section and content) ReasonCommentsAnnual ExamSpecialtyDiagnoses / ProceduresReferred By Contact Referred To ContactCardiology Diagnoses Murmur, heart Procedures Transthoracic Echo (TTE) Complete IA ECHO TTHRC R-T 2D W/WOM-MODE COMPL SPEC&COLR D Fletcher Ziegler MD [facility] [facility] [address], [address] [address] Referral IDStatusReasonStart DateExpiration DateVisits RequestedVisits [id number] Perform Procedure /[id number] VISITCoumadin 9mg sun 6mg all other days ReasonCommentsEstablish CarePrevious PCP Dr [facility] livingSe[facility] cardiology [place]Sees neurology [place]IN[place] VISITCoumadin 4mg Mon 6mg all other daysReasonCommentsCoagulation DisorderCoumadin 4mg Thursday, 6mg all other daysReasonCommentsINR VISITCoumadin 6mg everyday EXCEPT Thursday 4mg ResultsLab resultsFoot PainReasonCommentsINR VISITCoumadin 6mg QdReasonComments INR VISITCoumadin 4mg /Thu 6mg all other daysorthostatic hypotensionReason CommentsMedicare Annual Wellness Visit SubsequentINR VISITCoumadin 4mg /Thu 6mg all other daysReasonCommentsINR VISITCoumadin 4mg // 6mg all other days ReasonCommentsAtrial FibrillationCoumadin 6mg T//THU 4mg all other daysReason CommentsINR VISITCoumadin -- hold x 3 days then take 7mg QDReasonCommentsINR VISITPt has held coumadin since last visit as directedINR 12/19/24 8.0Reason CommentsMed Refill Care Teams (unrecognized sec tion and content) Team MemberRelationshipSpecialtyStart DateEnd Date Emigdio Villanueva DO [address] [place] [address] PCP - General11/24/18 Team Status: Inactive Member Role Status Dates Emigdio Villanueva DO Primary Care Provider Active Start: June 17, 2023 End: June 17, 2023Jorgito Harris ProviderActive Start: June 17, 2023 End: June 17, 2023Team MemberRelationshipSpecialtyStart DateEnd Date Generic Provider, No Assigned Pcp, [address] [place] [address] PCP - General07/09/23 Team Status: Active Member Role Status Dates PHYSICIAN NO FAMILY Primary Care Provider Active Team Status: Inactive Member Role Status Dates AMPARO Moreno Attending Provider Active S tart: July 29, 2023 End: July 29HYSICIAN NO FAMILYPrimary Care ProviderActiveStart: July 29, 2023 End: July 29, 2023 Team Status: Active Member Role Status Dates Emigdio Villanueva DO Primary Care Provider Active Team Status: Inactive Member Role Status Dates Yelena Puri RPH ActiveStart: August 04, 2023 End: August 04evans Villanueva , DESIRAEri[facility] Care ProviderActiveStart: August 04, 2023 End: August 04, 2023Fletcher Ziegler , MDReferring ProviderActive Start: August 04, 2023 End: August 04, 20[address] , PharmDAttending ProviderActiveStart: August 04, 2023 End: August 04, 2023 Team Status: Inactive Member Role Status Dates Emigdio Villanueva DO Primary Care Provider Active Start: October 05, 2023 End: October 05, 2023Fletcher Ziegler , MDReferring ProviderActiveStart: October 05, 2023 End: October 05, 2023Jaousmane Peres , RPHAttending ProviderActiveStart: October 05, 2023 End: October 05, 2023 Team Status: Inactive Member Role Status Lupillo Villanueva DO Primary Care Provider Active Start: October 26, 2023 End: October 26, 2023Fletcher Ziegler MDReferring ProviderActiveStart: October 26, 2023 End: October 26, 2023[address] , PharmDAttending ProviderActiveStart: October 26, 2023 End: October 26, 2023 Team Status: Inactive Member Role Status Dates Emigdio Villanueva DO Primary Care Provider Active Start: November 24, 2023 End: November 24, 2023Rosalia Peres RPHAttending ProviderActiveStart: November 24, 2023 End: November 24, 2023Fletcher Ziegler , MDReferring ProviderActiveStart: November 24, 2023 End: November 24, 2023 Team Status: Inactive Member Role Status Lupillo Villanueva DO Primary Care Provider Active Start: December 07, 2023 End: December 07, 2023Wibrucehoward Rendontadeo , MDReferring ProviderActiveStart: December 07, 2023 End: December 07, 2023Rosalia Ja , RPHAttending ProviderActiveStart: December 07, 2023 End: December 07, 2023 Team Status: Inactive Member Role Status Dates Emigdio Villanueva DO Primary Care Provider Active Start: December 14, 2023 End: December 13africa Khushi , RPHActiveStart: December 14, 2023 End: December 14, 2023Wishaina Tex Rendontadeo , MDReferring ProviderActiveStart: December 14, 2023 End: December 14, 2023Mishel [place] , PharmDAttending ProviderActiveStart: December 14, 2023 End: December 14, 2023 Team Status: Active Member Role Status Dates Emigdio Villanueva DO Primary Care Provider Active Start: December 17, 2023 Malik Perez DOEmergentelly ProviderActiveStart: December 17, 2023 Clement Monzon , RESActiveStart: December 17, 2023 Marino Acuña , MDAdmit Provider, Attending ProviderActiveStart: December 17, 2023 Felipe Lopez , DOOther ProviderActiveStart: December 17, 2023 Team Status: Inactive Member Role Status Dates Emigdio Villanueva DO Primary Care Provider Active Start: December 17, 2023 End: December 23, 2023Malik Perez DOEmergency ProviderActiveStart: December 17, 2023 End: December 22trice Monzon , RESActiveStart: December 17, 2023 End: December 23, 2023Marino Acuña , MDAdmit ProviderActiveStart: December 17, 2023 End: December 22sridhar Lopez DOOther ProviderActiveStart: December 17, 2023 End: December 22zulma Hagan MDAttending ProviderActiveStart: December 17, 2023 End: December 23, 2023 Team Status: Active Member Role Status Dates Emigdio Villanueva DO Primary Care Provider Active Start: December 06, 2023 Saúl Perdomo DOAttstaci ProviderActiveStart: December 06, 2023 Team Status: Inactive Member Role Status Dates Emigdio Villanueva DO Primary Care Provider Active Start: February 10, 2024 End: February 10, 2024Fletcher Ziegler MDReferring ProviderActive Start: February 10, 2024 End: February 10, 20[address] PharmDAttending ProviderActiveStart: February 10, 2024 End: February 10, 2024Team MemberRelationshipSpecialtyStart DateEnd Emigdio Pereyra MD [address] [place] [address] PCP - GeneralFamily Medicine12/28/23Team MemberRelationshipSpecialtyStart PanchitoEnd Emigdio Pereyra MD [address] [place] [address] PCP - Generalmily Medicine12/28/23Team MemberRelationshipSpecialtyStart DateEnd Date Emigdio Villanueva MD [address] [place] [address] PCP - Generalmily Medicine12/28/23Team MemberRelationshipSpecialtyStart DateEnd Emigdio Pereyra MD [address] [place] [address] PCP - Generalmily Medicine12/28/23Team MemberRelationshipSpecialtyStart DateEnd Date Emigdio Villanueva MD [address] [place] [address] PCP - Generalmi Medicine12/28/23Team MemberRelationshipSpecialtyStart DateEnd Emigdio Pereyra MD [address] [place] [address] PCP - GeneralFamily Medicine12/28/23Team MemberRelationshipSpecialtyStart DateEnd Date Emigdio Villanueva MD [address] [place] [address] PCP - GeneralFamily Medicine12/28/23Team MemberRelationshipSpecialtyStart DateEnd Date Emigdio Villanueva MD [address] [place] [address] PCP - GeneralFamily Medicine12/28/23Team MemberRelationshipSpecialtyStart DateEnd Date Tyson Bhatti MD [address] [place] [address] PCP - GeneralInternal Cxliemov83/27/24Team MemberRelationshipSpecialtyStart Date End Date Tyson Bhatti MD [address] [place] [address] PCP - GeneralInternal Cuqjstct04/27/24Team MemberRelationshipSpecialtyStart Date End Date Tyson Bhatti MD [address] [place] [address] PCP - GeneralInternal Miunzavb13/27/24Team MemberRelationshipSpecialtyStart Date End Date Tyson Bhatti MD [address] [place] [address] PCP - GeneralInternal Nlbhcwie85/27/24Team MemberRelationshipSpecialtyStart Date End Date Tyson Bhatti MD [address] [place] [address] PCP - GeneralInternal Mkzmsvjj58/27/24Team MemberRelationshipSpecialtyStart Date End Date Tyson Bhatti MD [address] [place] [address] PCP - GeneralInternal Dxwnhqvz67/27/24Team MemberRelationshipSpecialtyStart Date End Date Tyson Bhatti MD [address] [place] [address] PCP - GeneralInternal Lmswukfl86/27/24Team MemberRelationshipSpecialtyStart Date End Date Tyson Bhatti MD [address] [place] [address] PCP - GeneralInternal Shsfartq53/27/24Team MemberRelationshipSpecialtyStart Date End Date Tyson Bhatti MD [address] [place] [address] PCP - GeneralInternal Nnvhadvy07/27/24Team MemberRelationshipSpecialtyStart Date End Date Tyson Bhatti MD [address] [place] [address] PCP - GeneralInternal Jhtfpbzi72/27/24 Kacy Pretty DO [address] [place] [address] Referring PhysicianNeurology10/03/24Team MemberRelationshipSpecialtyStart DateEnd Date Tyson Bhatti MD [address] [place] [address] PCP - GeneralInternal Gghrnzxg86/27/24 Kacy Pretty DO [address] [place] [address] Referring PhysicianNeurology10/03/24Team MemberRelationshipSpecialtyStart DateEnd Date Tyson Bhatti MD [address] [place] [address] PCP - GeneralInternal Hlcyfjgp99/27/24 Kacy Pretty DO [address] [place] [address] Referring PhysicianNeurology10/03/24 Team Status: Active Member Role Status Dates Tyson Bhatti II MD Primary Care Provider Active Team Status: Inactive Member Role Status Dates Josue Leigh DO Emergency Provider Active Start: November 02, 2024 End: November 02, 2024Dafrancis Bhatti II [facility] ProviderActiveStart: November 02, 2024 End: November 02, 2024Team MemberRelationshipSpecialtyStart DateEnd Date Tyson Bhatti MD [address] [facility] [address] [place] [address] PCP - GeneralInternal Ubmbqzas07/27/24 Kacy Pretty DO [address] [facility] [address] [place] [address] Referring PhysicianNeurology10/03/24 Team Status: Inactive Member Role Status Dates Tyson Bhatti II MD Primary Care Provider Active Start: November 10, 2024 End: November 10, 2024Isabelle Rucker ORDER PROCESSOR-CAttending ProviderActiveStart: November 10, 2024 End: November 10, 2024Team MemberRelationshipSpecialtyStart DateEnd Date Tyson Bhatti MD [address] [facility] [address] [place] [address] PCP - GeneralInternal Dwwljmup80/27/24 Kacy Pretty DO [address] [place] [address] Referring PhysicianNeurology10/03/24Team MemberRelationshipSpecialtyStart DateEnd Tyson Bhatti MD [address] [facility] [address] [place] [address] PCP - GeneralInternal Mxkgrnfh18/27/24 Kacy Pretty DO [address] [place] [address] Referring PhysicianNeurology10/03/24Team MemberRelationshipSpecialtyStart DateEnd Date Tyson Bhatti MD [address] [facility] [address] [place] [address] PCP - GeneralInternal Mypetrvt83/27/24 Kacy Pretty DO [address] [place] [address] Referring PhysicianNeurology10/03/24Team MemberRelationshipSpecialtyStart DateEnd Tyson Bhatti MD [address] [facility] [address] [place] [address] PCP - GeneralInternal Wvovcezg58/27/24 Kacy Pretty DO [address] [place] [address] Referring PhysicianNeurology10/03/24Team MemberRelationshipSpecialtyStart DateEnd Date Tyson Bhatti MD [address] [facility] [address] [place] [address] PCP - GeneralInternal Rbwsazyy45/27/24 Kacy Pretty DO [address] [place] [address] Referring PhysicianNeurology10/03/24Team MemberRelationshipSpecialtyStart DateEnd Tyson Bhatti MD [address] [facility] [address] [place] [address] PCP - GeneralInternal Jjcvrrwv12/27/24 Kacy Pretty DO [address] [place] [address] Referring PhysicianNeurology10/03/24Team MemberRelationshipSpecialtyStart DateEnd Date Tyson Bhatti MD [address] [facility] [address] [place] [address] PCP - GeneralInternal Fyeuwsbg04/27/24 Kacy Pretty DO [address] [place] [address] Referring PhysicianNeurology10/03/24Team MemberRelationshipSpecialtyStart DateEnd Date Tyson Bhatti MD [address] [facility] [address] [place] [address] PCP - GeneralInternal Lckgslns11/27/24 Kacy Pretty DO [address] [place] [address] Referring PhysicianNeurology10/03/24Team MemberRelationshipSpecialtyStart DateEnd Date Tyson Bhatti MD [address] [facility] [address] [place] [address] PCP - GeneralInternal Efsyumiy42/27/24 Kacy Pretty DO [address] [place] [address] Referring PhysicianNeurology10/03/24Team MemberRelationshipSpecialtyStart DateEnd Date Tyson Bhatti MD [address] [place], [place] [id number] PCP - GeneralInternal Qevaihrh82/27/24 Kacy Pretty DO [address] [place] [phone] Referring PhysicianNeurology10/03/24 Team Status: Inactive Member Role Status Dates Tyson Bhatti II MD Primary Care Provider Active Start: March 20, 2025 End: March 20chevy Pretty DOAttending ProviderActiveStart: March 20, 2025 End: March 20, 2025Team MemberRelationshipSpecialtyStart DateEnd Date Tyson Bhatti MD [address] [place] [address] PCP - GeneralInternal Zzxbtyqa84/27/24 Kacy Pretty DO [address] [place] [address] Referring PhysicianNeurology10/03/24Team MemberRelationshipSpecialtyStart DateEnd Date Tyson Bhatti MD [address] [place] [id number] PCP - GeneralInternal Vmahlqgy49/27/24 Kacy Pretty DO [address] [place] [phone] Referring PhysicianNeurology10/03/24Team MemberRelationshipSpecialtyStart DateEnd Date Tyson Bhatti MD [address] [address] PCP - GeneralInternal Qubjcdfe89/27/24 Kacy Pretty DO [address] [address] Referring PhysicianNeurology10/03/24Team MemberRelationshipSpecialtyStart DateEnd Date Tyson Bhatti MD [address] [address] PCP - GeneralInternal Zcsdibiw04/27/24 Kacy Pretty DO [address] [address] Referring PhysicianNeurology10/03/24 Goals (unrecognized section and content) Goals may [...] BE BASED ON THE PRIMARY CLINICAL RECORDS. [employer] [facility]. provides no warranty or guarantee of the accuracy or completeness of information in this document.
[2025-05-05 13:05] LABS: Hematocrit 43.4 % (42.0-54.0); Hemoglobin 13.5 g/dL (14.0-18.0); Immature Granulocytes Abs Auto 0.02 10^3/uL (0.00-0.03); Immature Granulocytes Pct Auto 0.5 % (0.0-0.5); Lymphocytes Absolute Auto 1.2 10^3/uL (1.2-3.8); Mean Corpuscular HGB Conc 31.1 g/dL (29.9-35.2); Mean Corpuscular Hemoglobin 26.6 pg (25.9-34.0); Mean Corpuscular Volume 85.4 fL (80.0-94.0); Platelet Count 134 10^3/uL (150-450); Red Blood Count 5.08 10^6/uL (4.70-6.10); White Blood Count 4.3 10^3/uL (4.0-11.0)
[2025-05-05 13:10] LABS: Anion Gap 8.6; Blood Urea Nitrogen 15.0 mg/dL (7.0-18.0); Calcium 8.4 mg/dL (8.5-10.1); Carbon Dioxide 29.0 mmol/L (21.0-32.0); Chloride 105 mmol/L (98-107); Estimated GFR (African America >60 (>=60 mL/min/1.73m^2); Estimated GFR (Non-African Ame >60 (>=60 mL/min/1.73m^2); Glucose 144 mg/dL (74-106); Potassium 3.6 mmol/L (3.5-5.1); Sodium 139 mmol/L (136-145)
--- NOTE | 2025-05-05 13:34 | PC.NURSE ---
Pt's family at bedside states concern for patients safety being in assisted living and they are in agreeance with Dr. Tate that the patient may need more attentive care duue to the worsening dementia odd bundle worker Anabelle was contacted by ER workers compensation legal secretary, she will be down to evaluate patient
--- NOTE | 2025-05-05 14:33 | SWNOTE1 ---
BANDAR called and spoke to Mere at [facility]. She is familiar with pt. She stated pt is confused off and on and just started a new drug for Dementia less than a week ago. Isabelle Rucker, DRAWING BOX TENDER prescribes this. 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 Mere stated today he was dizzy and off balance. She stated he also takes Coumadin for A-Fib as well. She voiced he is a great resident, but slowly declining as well. BANDAR to updated the ED physician. BANDAR called down to ED, ED doctor not available. ED nurse will call BANDAR back.
[2025-05-05 14:38] LABS: Glucose Urine UA NEGATIVE (NEGATIVE)
[2025-05-05 14:52] LABS: Cast Seen? NONE SEEN #/LPF (NONE SEEN); Crystals Seen? None Seen #/HPF (None Seen)
--- NOTE | 2025-05-05 15:07 | PC.NURSE ---
cripple worker Sally spoke with patients medical POA and the [facility] They are all agreeable that the patient is safe to return to the [facility] Relayed this information to family at bedside and Dr. Tate
--- NOTE | 2025-05-05 15:18 | SWNOTE1 ---
BANDAR called pt's daughter, Isabelle and spoke to her about pt being at [facility]. BANDAR did let her know there are some concerns with pt returning to Assisted Living. BANDAR did let her know that pt is getting worked up medically, but there may not be a medical reason to have pt admitted. 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 Isabelle let BANDAR know that when pt went to rehab back in November, pt got worse. She stated once he returned to [facility] he was much better because that is his home. Isabelle stated they have no reason or plans of pt moving out of [facility] and if he has no medical reason to be admitted, she wants him to return to [facility]. BANDAR called down to ED and let pt's ED nurse know this.
== END 2025-05-05 15:37 | disposition home or self-care (01) ==
PROVIDERS: Emergency Provider Emergency Medicine; PCP Internal Medicine
DX: I48.91 Unspecified atrial fibrillation (principal); F03.90 Unspecified dementia, unspecified severity, without behavioral disturbance, psychotic disturbance, mood disturbance, and anxiety
CPT/HCPCS: 36415; 70450; 71045; 80048; 81001; 85025; 93005; 99285